=== PATIENT | female | born 1940 | race Caucasian/White ===

== ENCOUNTER 2016-06-21 16:30 | Inpatient (IN) | payer MEDICARE, OTHER ==
[2016-06-21 18:22] VITALS: BP 143/79
[2016-06-21] MEDS ORDERED: ACETAMINOPHEN 500 MG PO PRN (19:45)
[2016-06-21] MEDS ORDERED: Albuterol Nebulizer 2.5mg/3mL HHN PRN (19:45)
[2016-06-21] MEDS ORDERED: Ipratropium Neb 0.5 mg/2.5 mL UD HHN PRN (19:48)
[2016-06-21] MEDS: INSULIN ASPART SLIDING SCALE 100 UNITS/ML UNIT SUBQ SCH (20:46)
[2016-06-21] MEDS: Insulin Detemir 100 units/mL 10mL Vial SUBQ SCH (20:46)
[2016-06-21] MEDS: Ipratropium Neb 0.5 mg/2.5 mL UD HHN SCH ×2 (22:20)
[2016-06-22] MEDS: Acetaminophen 500 MG TAB PO PRN ×2 (02:36→09:56)
[2016-06-22] MEDS: Ipratropium Neb 0.5 mg/2.5 mL UD HHN SCH ×7 (02:40→22:00)
[2016-06-22] MEDS: Hydrocodone/APAP 10 mg/325 mg Tab PO PRN ×3 (06:25→20:30)
[2016-06-22] MEDS: INSULIN ASPART SLIDING SCALE 100 UNITS/ML UNIT SUBQ SCH ×4 (06:37→20:31)
[2016-06-22] MEDS: Atorvastatin Calcium 10 MG TAB PO SCH (09:43)
[2016-06-22] MEDS: Aspirin 81mg Chewable Tab PO SCH (09:43)
[2016-06-22] MEDS: Magnesium Hydroxide (MOM) 30 mL UDC PO PRN (16:25)
[2016-06-22] MEDS: Insulin Detemir 100 units/mL 10mL Vial SUBQ SCH (20:25)
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
[2016-06-23] MEDS: Ipratropium Neb 0.5 mg/2.5 mL UD HHN SCH ×6 (03:30→22:42)
[2016-06-23] MEDS: INSULIN ASPART SLIDING SCALE 100 UNITS/ML UNIT SUBQ SCH ×4 (06:48→20:39)
[2016-06-23] MEDS: Hydrocodone/APAP 10 mg/325 mg Tab PO PRN ×2 (07:50→17:24)
[2016-06-23] MEDS: Atorvastatin Calcium 10 MG TAB PO SCH (08:51)
[2016-06-23] MEDS: Aspirin 81mg Chewable Tab PO SCH (08:53)
[2016-06-23] MEDS: Acetaminophen 500 MG TAB PO PRN (13:52)
[2016-06-23] MEDS: Insulin Detemir 100 units/mL 10mL Vial SUBQ SCH (20:40)
[2016-06-23] MEDS: Nystatin Cream 100,000 u/gm Cream 15 gm TP SCH (21:18)
--- NOTE | 2016-06-24 00:16 | Progress Notes ---
SUBJECTIVE: The patient seen, chart reviewed, discussed with staff. The patient refusing interview this morning. Staff noting she has been irritable towards them, not participating in any self-care planning discussions at this time. I tried to wake her up, but she is not waking up: She is, per staff, "pretending to sleep and refusing to wake up for them as well and doing somewhat oppositional." Unable to participate in any self-care planning discussions at this time. We will contact the patient's daughter today to increase collateral and try to see if she can help out with placement. The patient has apparently been somewhat aggressive at previous snf. ASSESSMENT: The patient refusing interview, not safe for discharge at this time, currently gravely disabled. We will continue to monitor. The patient has been refusing medications. I am not really able to participate in a discussion with her as to why. PLAN: We will try to follow up in the morning. JOB# [id number]
[2016-06-24] MEDS: Hydrocodone/APAP 10 mg/325 mg Tab PO PRN ×4 (00:44→20:27)
[2016-06-24] MEDS: Ipratropium Neb 0.5 mg/2.5 mL UD HHN SCH ×7 (02:25→23:00)
[2016-06-24] MEDS: INSULIN ASPART SLIDING SCALE 100 UNITS/ML UNIT SUBQ SCH ×4 (06:43→21:02)
[2016-06-24] MEDS: Aspirin 81mg Chewable Tab PO SCH (08:34)
[2016-06-24] MEDS: Atorvastatin Calcium 10 MG TAB PO SCH (08:34)
[2016-06-24] MEDS: Nystatin Cream 100,000 u/gm Cream 15 gm TP SCH ×2 (08:40→21:10)
[2016-06-24] MEDS: Magnesium Hydroxide (MOM) 30 mL UDC PO PRN (17:23)
[2016-06-24] MEDS: Insulin Detemir 100 units/mL 10mL Vial SUBQ SCH (21:03)
[2016-06-25] MEDS: Hydrocodone/APAP 10 mg/325 mg Tab PO PRN (02:25)
[2016-06-25] MEDS: Ipratropium Neb 0.5 mg/2.5 mL UD HHN SCH ×2 (03:00→07:36)
--- NOTE | 2016-06-25 06:20 | Progress Notes ---
SUBJECTIVE: The patient was seen, chart reviewed, and discussed with staff. The patient remains depressed, withdrawn, demanding to leave the hospital stating, "just send me on the streets." However, the patient really cannot walk and is on oxygen and is not giving me any evidence of being able to provide for basic food, clothing, and retirement. Currently gravely disabled, refusing some medications, alluding to "gnosticist reasons." The patient is sleeping well, eating with prompting. I did speak with the patient's daughters as they are looking for placements. ASSESSMENT: The patient is gravely disabled, unable to be cared for at a lower level of care, and she cannot care for herself. PLAN: Encouraged medication compliance. Continue to monitor closely. JOB# [id number]
[2016-06-25] MEDS: INSULIN ASPART SLIDING SCALE 100 UNITS/ML UNIT SUBQ SCH ×4 (06:43→21:35)
[2016-06-25] MEDS: Acetaminophen 500 MG TAB PO PRN ×2 (07:52→12:26)
[2016-06-25] MEDS ORDERED: Ipratropium Neb 0.5 mg/2.5 mL UD HHN PRN ×2 (08:36)
[2016-06-25] MEDS: Atorvastatin Calcium 10 MG TAB PO SCH (08:54)
[2016-06-25] MEDS: Aspirin 81mg Chewable Tab PO SCH (08:54)
[2016-06-25] MEDS: Nystatin Cream 100,000 u/gm Cream 15 gm TP SCH ×2 (08:55→21:36)
[2016-06-25] MEDS: Hydrocodone/APAP 5mg/325mg Tab PO PRN ×2 (14:24→21:35)
[2016-06-25] MEDS: Insulin Detemir 100 units/mL 10mL Vial SUBQ SCH (21:36)
[2016-06-26] MEDS: Hydrocodone/APAP 10 mg/325 mg Tab PO PRN ×3 (04:51→16:32)
--- NOTE | 2016-06-26 05:15 | Progress Notes ---
SUBJECTIVE: The patient was seen and evaluated. The patient's chart reviewed. The patient was discussed with the staff members. Overnight staff members reported that the patient is easily irritable, easily agitated and aggressive and curses and yelling in response to suspicions and paranoia. Today on [id number] evaluation, the patient is very irritable, angry, refusing to talk, starts cursing the medical doctor, reporting who the hell are you are and evaluating the patient's emotions, she is easily irritable and just continues to refuse to intervene. MENTAL STATUS EXAMINATION: Still sort of paranoid, delusional, refusing to be interviewed by the medical doctor. Poor insight and poor judgment and poor impulse control. ASSESSMENT AND PLAN: The patient is a 75-year-old female with a history of psychosis who presents very suspicious, irritable, agitated and cursing at the medical staff, difficult to maintain a linear conversation. We will continue monitoring and evaluating. We will continue with the current medications of donepezil, memantine and Risperdal to target the patient's suspicious psychotic behavior. JOB# [id number] MOE
[2016-06-26] MEDS: INSULIN ASPART SLIDING SCALE 100 UNITS/ML UNIT SUBQ SCH ×4 (06:42→20:33)
[2016-06-26] MEDS: Atorvastatin Calcium 10 MG TAB PO SCH (08:42)
[2016-06-26] MEDS: Aspirin 81mg Chewable Tab PO SCH (08:43)
[2016-06-26] MEDS: Nystatin Cream 100,000 u/gm Cream 15 gm TP SCH ×2 (08:45→20:53)
[2016-06-26] MEDS: Insulin Detemir 100 units/mL 10mL Vial SUBQ SCH (20:32)
--- NOTE | 2016-06-27 00:15 | Progress Notes ---
Covering for Dr. Oden. SUBJECTIVE: The patient was seen and evaluated. The patient's chart reviewed. Overnight staff reported the patient continues to be very irritable and cursing. Today on [id number] evaluation, the patient curses the medical doctor, very suspicious, paranoid, reports "why are you following me, why are you tracking me." MENTAL STATUS EXAMINATION: Suspicious, paranoid, very irritable, easily agitated. ASSESSMENT AND PLAN: The patient is a 75-year-old female who continues to be very paranoid, delusional, very irritable and agitated related to the patient's psychotic thought process. In the mean time, we will continue monitoring and evaluating. We will continue with the Cymbalta 30 mg to target her ongoing depression and a low dose of risperidone 0.5 to target the patient's underlying paranoia. JOB# [id number]
[2016-06-27] MEDS: Hydrocodone/APAP 5mg/325mg Tab PO PRN ×4 (05:07→22:05)
[2016-06-27] MEDS: INSULIN ASPART SLIDING SCALE 100 UNITS/ML UNIT SUBQ SCH ×4 (06:32→21:33)
[2016-06-27] MEDS: Atorvastatin Calcium 10 MG TAB PO SCH (10:16)
[2016-06-27] MEDS: Aspirin 81mg Chewable Tab PO SCH (10:16)
[2016-06-27] MEDS: Nystatin Cream 100,000 u/gm Cream 15 gm TP SCH ×2 (10:19→21:25)
--- NOTE | 2016-06-27 19:26 | Progress Notes ---
SUBJECTIVE: The patient seen, chart reviewed, discussed with staff. The patient remains suspicion, irritable noted to be somewhat paranoid, by Dr. Madrid over the weekend. Dr. Madrid noted that the patient thought that he was following her and tracking her. The patient is continuing to intermittently refuse medications. The patient was started on Risperdal over the weekend. No plans for self-care at this time, noting she wants to go to "[place]" though we have no confirmation of placement. Sleeping, but arousable, still needing a lot of redirection and prompting. ASSESSMENT: The patient remains suspicious, _symptomatic___, depressed, irritable, no plans for self-care. We will continue to monitor and encourage med compliance. JOB# [id number] MOE
[2016-06-27] MEDS: Insulin Detemir 100 units/mL 10mL Vial SUBQ SCH (21:28)
[2016-06-27] MEDS: Magnesium Hydroxide (MOM) 30 mL UDC PO PRN (22:06)
[2016-06-28] MEDS: Hydrocodone/APAP 5mg/325mg Tab PO PRN ×2 (05:47→10:26)
[2016-06-28] MEDS: INSULIN ASPART SLIDING SCALE 100 UNITS/ML UNIT SUBQ SCH ×4 (06:52→20:37)
[2016-06-28] MEDS: Aspirin 81mg Chewable Tab PO SCH (09:47)
[2016-06-28] MEDS: Atorvastatin Calcium 10 MG TAB PO SCH (09:47)
[2016-06-28] MEDS: Nystatin Cream 100,000 u/gm Cream 15 gm TP SCH ×2 (09:48→20:41)
[2016-06-28] MEDS: Hydrocodone/APAP 10 mg/325 mg Tab PO PRN ×2 (15:06→20:36)
[2016-06-28] MEDS: Insulin Detemir 100 units/mL 10mL Vial SUBQ SCH (20:38)
--- NOTE | 2016-06-28 23:44 | Progress Notes ---
SUBJECTIVE: The patient was seen, chart reviewed, and discussed with staff. The patient remains irritable, impulsive, upset, refusing treatment, refusing Cymbalta, and refusing Risperdal. No overt evidence of psychosis at this time. She is linear, but upset. No plans for self-care at this time, states "just release me to the street," but at the same time, she is curious about pending dispo planning and what the social and human services assistant has found in regards to placement. The patient is sleeping fairly well and eating with prompting. ASSESSMENT: The patient is gravely disabled, still symptomatic, irritable, impulsive, and refusing treatment. PLAN: Continue to monitor. We are working hard on placement. JOB# [id number]
[2016-06-29] MEDS: Hydrocodone/APAP 10 mg/325 mg Tab PO PRN (06:09)
[2016-06-29] MEDS: INSULIN ASPART SLIDING SCALE 100 UNITS/ML UNIT SUBQ SCH ×3 (06:33→17:23)
[2016-06-29] MEDS: Atorvastatin Calcium 10 MG TAB PO SCH (08:18)
[2016-06-29] MEDS: Aspirin 81mg Chewable Tab PO SCH (08:19)
[2016-06-29] MEDS: Nystatin Cream 100,000 u/gm Cream 15 gm TP SCH (08:20)
[2016-06-29] MEDS: Hydrocodone/APAP 5mg/325mg Tab PO PRN ×2 (13:32→17:49)
[2016-06-29] MEDS: Acetaminophen 500 MG TAB PO PRN (14:14)
--- NOTE | 2016-06-29 19:30 | Discharge Summary ---
JUSTIFICATION FOR HOSPITALIZATION: 5150 hold, grave disability. CHIEF COMPLAINT: Grave disability HISTORY OF PRESENT ILLNESS: A 75-year-old female, refusing medications at [facility], well oriented, but not knowing why she is in the hospital, unable to care for her basic needs, demanding to leave the hospital, history of aggression. SOCIAL HISTORY: Living at [facility] facility, some support from Daughters. PAST PSYCHIATRIC HISTORY: Depression. MENTAL STATUS EXAMINATION: Please see full psych eval for details. PROVISIONAL DIAGNOSES: Depression, unspecified; anxiety, unspecified. MEDICAL: Nothing acute. LABORATORY DATA: Reviewed. HOSPITAL COURSE: After initial assessment, the patient was initiated on Cymbalta. Over the course of the hospitalization, her mood did improve. She remained somewhat irritable, Dr. Madrid saw her was concerned about psychotic symptoms, initiated Risperdal; however, she refused alluding to her _religious__ _ reasons. However, the patient did not appear to be psychotic. She was linear and engaged, denying any auditory or visual hallucinations. No paranoia, so I did discharge the Risperdal, she did not take any dosages of it. I also discharged Cymbalta as she took no doses of it. By 06/29/2016, placement was confirmed. The placement did accept the patient, the patient was asymptomatic and she was discharged. CONDITION UPON DISCHARGE: Improved, good attention ADLs, good eye contact. Speech: Within normal limits. Behavior, calm; mood, "fine." Affect constricted. Thought process linear. Thought content, no SI, no HI. No evidence of psychosis. Concentration was sustained. Insight and judgment more reasonable x 2. The patient hopeful, motivated and optimistic, denying any thoughts that she wants to hurt anybody, no agitation. Staff noting she is sleeping well, eating well and redirectable. DISCHARGE DIAGNOSES: Depression, unspecified and anxiety, unspecified; medical, nothing acute. PROGNOSIS: The patient remains calm and follows her treatment plans. Prognosis will improve, otherwise guarded. JOB# [id number] MOE
[2016-06-29] MEDS ORDERED: Insulin Detemir 100 units/mL 10mL Vial SUBQ SCH (21:00)
== END 2016-06-29 18:30 | DRG 881 ==
LOC: GERO 16:30
PROVIDERS: ADMIT Psychiatry & Neurology Psychiatry; ATTEND Psychiatry & Neurology Psychiatry
DX: F32.9 Major depressive disorder, single episode, unspecified (principal); E66.01 Morbid (severe) obesity due to excess calories; E11.9 Type 2 diabetes mellitus without complications; J44.9 Chronic obstructive pulmonary disease, unspecified; F41.9 Anxiety disorder, unspecified; E78.5 Hyperlipidemia, unspecified; J45.909 Unspecified asthma, uncomplicated; G47.33 Obstructive sleep apnea (adult) (pediatric); I10 Essential (primary) hypertension; F29 Unspecified psychosis not due to a substance or known physiological condition; G89.4 Chronic pain syndrome; H40.9 Unspecified glaucoma; Z79.4 Long term (current) use of insulin; Z79.82 Long term (current) use of aspirin; Z91.14 Patient's other noncompliance with medication regimen; Z88.8 Allergy status to other drugs, medicaments and biological substances; Z88.0 Allergy status to penicillin; Z91.040 Latex allergy status
CPT/HCPCS: 36415-UA; 82948-90; 84484-TC; 90779; 93005; 94664; 94760; J1815; J7613; Z7610

== ENCOUNTER 2018-12-11 20:42 | Inpatient (IN) | payer MEDICARE, OTHER ==
[2018-12-11] MEDS ORDERED: Hydrocodone/APAP 5mg/325mg Tab PO PRN (21:39)
[2018-12-11 21:41] VITALS: BP 108/76
[2018-12-11] MEDS ORDERED: Dextrose 50% 50 mL Abboject IVP PRN ×2 (21:44→21:59)
[2018-12-11] MEDS ORDERED: GLUCAGON HCl 1 MG KIT IM PRN ×2 (21:44→21:59)
[2018-12-11] MEDS ORDERED: INSULIN LISPRO SLIDING SCALE 100 UNITS/ML UNIT SUBQ SCH (21:54)
--- NOTE | 2018-12-11 22:10 | History & Physical ---
ADMIT DATE: 12/11/2018 HISTORY OF PRESENT ILLNESS: The patient is an 78-year-old female with long history of diabetes mellitus, hypertension, admitted to [facility] under Dr. Velazquez's service for evaluation and treatment. Apparently, the patient has been very agitated, psychotic. There is no fever, no chills. Apparently, the patient was seen at [facility] ER and received 1 dose of 1 g of Rocephin. Her urine is significant for a yeast infection. The patient is a poor historian. PAST MEDICAL HISTORY: Significant for hypertension, diabetes mellitus, psychosis. PAST SURGICAL HISTORY: No recent surgery. ALLERGIES: FUROSEMIDE, LISINOPRIL, PENICILLIN AND SULFA. SOCIAL HISTORY: No smoking, no alcohol, no drug. FAMILY HISTORY: Noncontributory. REVIEW OF SYSTEMS: IMMUNO SYSTEM: No history of chronic immune disorder. CARDIOVASCULAR SYSTEM: She has history of hypertension. ENDOCRINE SYSTEM: She has history of diabetes mellitus. GASTROINTESTINAL SYSTEM: No upper or lower GI bleeding. NEUROLOGICAL SYSTEM: No seizure disorder. SKELETOMUSCULOSKELETAL SYSTEM: No muscular dystrophy. HEMATOLOGIC SYSTEM: No bleeding tendencies. RESPIRATORY SYSTEM: She has history of asthma. GENITOURINARY: She has yeast infection in the urine. PHYSICAL EXAMINATION: GENERAL: She is awake, alert, mildly confused. VITAL SIGNS: Temperature is 98, heart rate 88, blood pressure 132/70. HEENT: Normocephalic. Pupils reactive to light and accommodation. Sclerae clear. NECK: Supple. Negative for lymphadenopathy, JVD or bruit. CHEST: Entry of air bilaterally normal. No rhonchi or wheezing. HEART: S1, S2 normal. No gallop rhythm. ABDOMEN: Soft, bowel sounds positive. EXTREMITIES: No edema. NEUROLOGIC: She is awake, alert, mildly confused. No focal motor or sensory deficits. Cranial nerves 2-12 are intact. ASSESSMENT: 1. Urinary tract infection. 2. Hypertension. 3. Diabetes mellitus. 4. Hyperlipidemia. 5. Psychosis. PLAN: The patient is in the hospital under Dr. Velazquez's service. Problems addressed during hospitalization are psychosis and the urinary tract infection. Medical problems addressed at discharge are hypertension, diabetes mellitus. The patient is medically stable for activity. We will start the patient on Diflucan 200 mg p.o. daily for 5 days. The patient is stable for activity. Thank you, Dr. Velazquez for asking me to see your patient. The patient is a full code. JOB# [id number]
[2018-12-11] MEDS: Insulin Glargine 100 units/ml 10ml Vial SUBQ SCH (22:19)
[2018-12-11] MEDS: INSULIN LISPRO SLIDING SCALE 100 UNITS/ML UNIT SUBQ SCH (22:21)
[2018-12-11] MEDS: Ipratropium Neb 0.5 mg/2.5 mL UD HHN SCH (23:07)
[2018-12-12] MEDS: Ipratropium Neb 0.5 mg/2.5 mL UD HHN SCH ×6 (03:00→22:30)
[2018-12-12] MEDS: INSULIN LISPRO SLIDING SCALE 100 UNITS/ML UNIT SUBQ SCH ×4 (06:58→21:38)
[2018-12-12] MEDS ORDERED: INSULIN LISPRO SLIDING SCALE 100 UNITS/ML UNIT SUBQ SCH (07:30)
[2018-12-12 08:15] LABS: CHOLESTEROL 174 mg/dL (<200); HDL -HIGH DENSITY LIPOPROTEIN 30 mg/dL (23-92); TRIGLYCERIDES 336 mg/dL (<150)
[2018-12-12] MEDS ORDERED: Fleet Enema 135 mL RC PRN (08:19)
[2018-12-12] MEDS ORDERED: FLUTICASONE FUROATE NS SCH (09:00)
[2018-12-12] MEDS ORDERED: Atorvastatin Calcium 10 MG TAB PO SCH (09:00)
[2018-12-12] MEDS: Vitamin B Complex w/Vitamin C Tab PO SCH (09:32)
[2018-12-12] MEDS: Levothyroxine 0.075 Mg Tab PO SCH (09:53)
[2018-12-12] MEDS: APAP/Oxycodone 5/325mg Tab PO SCH ×3 (10:00→21:55)
[2018-12-12] MEDS: Nystatin Cream 100,000 u/gm Cream 15 gm TP SCH ×3 (13:00→21:55)
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
--- NOTE | 2018-12-12 21:13 | Internal Medicine Prog Note ---
Internal Medicine Subjective - Subjective Service Date: 12/12/18 Patient seen and examined:: with staff Patient is:: awake, verbal, in bed, talking, confused Per staff patient has:: no adverse event Internal Medicine Objective - Results Recent Labs: Laboratory Last Values POC Glucose 331 MG/DL (70 - 105) H 12/12/18 16:43 Triglycerides 336 mg/dL (<150) H 12/12/18 07:10 Cholesterol 174 mg/dL (<200) 12/12/18 07:10 LDL Cholesterol Direct 98 mg/dL (75-193) 12/12/18 07:10 HDL Cholesterol 30 mg/dL (23-92) 12/12/18 07:10 - Physical Exam Vitals and I&O: Vital Signs Temp 98.9 F 12/12/18 06:24 Pulse 74 12/12/18 19:05 Resp 20 12/12/18 19:05 BP 182/122 12/12/18 17:13 Pulse Ox 97 12/12/18 19:05 Intake & Output 12/12/18 12/12/18 12/13/18 06:59 18:59 06:59 Intake Total 220 420 Balance 220 420 Intake: Oral 220 420 Other: # Voids 2 4 # Bowel Movements 0 0 Weight Source Estimated Active Medications: Current Medications Acetaminophen (Tylenol Extra Strength) 500 mg PO Q4HR PRN PRN Reason: Pain or Fever >101 Stop: 02/09/19 21:38 Albuterol Sulfate (Albuterol 2.5mg/3ml Neb Ud) 2.5 mg HHN Q4H PRN PRN Reason: Shortness of Breath or Wheeze Stop: 02/09/19 21:38 Aripiprazole (Abilify) 5 mg PO DAILY [facility]; Protocol Stop: 02/10/19 08:59 Last Admin: 12/12/18 09:33 Dose: 5 mg Aspirin (Ecotrin) 81 mg PO DAILY [facility] Stop: 02/10/19 08:59 Last Admin: 12/12/18 09:32 Dose: 81 mg Atorvastatin Calcium (Lipitor) 20 mg PO HS [facility] Stop: 02/10/19 20:59 Bisacodyl (Dulcolax 10 Mg Supp) 10 mg RC Q24H PRN PRN Reason: Constipation Stop: 02/10/19 10:59 Brimonidine Tartrate (Alphagan 0.1% Ophth Soln) 1 drop EACH EYE TID [facility] Stop: 02/10/19 08:59 Last Admin: 12/12/18 14:29 Dose: Not Given Carvedilol (Coreg) 6.25 mg PO BID [facility] Stop: 02/10/19 08:59 Last Admin: 12/12/18 17:13 Dose: 6.25 mg Dextrose (D50w) 50 ml IVP PRN PRN PRN Reason: Blood Glucose less than 70 Stop: 02/09/19 21:43 Dextrose (Glutose 40%) 18.75 gm PO PRN PRN PRN Reason: Blood Glucose less than 70 Stop: 02/09/19 21:43 Docusate Sodium (Colace) 100 mg PO BID [facility] Stop: 02/10/19 08:59 Last Admin: 12/12/18 17:12 Dose: 100 mg Duloxetine HCl (Cymbalta) 60 mg PO DAILY [facility]; Protocol Stop: 02/10/19 08:59 Last Admin: 12/12/18 09:39 Dose: Not Given Fluconazole (Diflucan) 200 mg PO DAILY [facility] Stop: 12/16/18 09:01 Last Admin: 12/12/18 09:34 Dose: 200 mg Furosemide (Lasix) 20 mg PO BID [facility] Stop: 02/10/19 08:59 Last Admin: 12/12/18 17:13 Dose: 20 mg Glucagon (Glucagen) 1 mg IM PRN PRN PRN Reason: Blood Glucose less than 70 Stop: 02/09/19 21:43 Hydralazine HCl (Apresoline) 10 mg PO BID [facility] Stop: 02/10/19 08:59 Last Admin: 12/12/18 17:12 Dose: 10 mg Ibuprofen (Motrin) 600 mg PO Q8H PRN PRN Reason: for breakthrough pain Stop: 02/10/19 08:18 Insulin Glargine (Lantus Insulin) 22 units SUBQ HS [facility] Stop: 02/09/19 21:59 Last Admin: 12/11/18 22:19 Dose: 22 units Insulin Human Lispro (Humalog Insulin Sliding Scale) 0 units SUBQ ACHS [facility]; Protocol Stop: 02/09/19 21:59 Last Admin: 12/12/18 16:58 Dose: 8 units Ipratropium [place] (Atrovent Neb 0.5mg/2.5ml) 0.5 mg HHN Q4HRT [facility] Stop: 02/09/19 22:59 Last Admin: 12/12/18 19:01 Dose: 0.5 mg Isosorbide Dinitrate (Isordil) 10 mg PO Q8H [facility] Stop: 02/10/19 08:29 Last Admin: 12/12/18 17:13 Dose: Not Given Latanoprost (Xalatan 0.005% Ophth Soln) 1 drop EACH EYE HS [facility] Stop: 02/10/19 20:59 Levothyroxine Sodium (Synthroid) 0.075 mg PO DAILY [facility] Stop: 02/10/19 08:59 Last Admin: 12/12/18 09:53 Dose: 0.075 mg Loratadine (Claritin) 10 mg PO DAILY [facility] Stop: 02/10/19 08:59 Last Admin: 12/12/18 09:32 Dose: Not Given Lorazepam (Ativan) 0.5 mg PO Q4HR PRN; Protocol PRN Reason: Anxiety Stop: 01/11/19 02:34 Losartan Potassium (Cozaar) 50 mg PO DAILY [facility] Stop: 02/10/19 08:59 Last Admin: 12/12/18 09:33 Dose: 50 mg Magnesium Hydroxide (Milk Of Magnesia) 30 ml PO DAILY PRN PRN Reason: Constipation Stop: 02/09/19 21:38 Miscellaneous (Fluticasone Furoate [Flonase Sensimist]) 2 sprays NS DAILY [facility] Stop: 02/10/19 08:59 Last Admin: 12/12/18 12:14 Dose: Not Given Nitroglycerin (Nitrostat) 0.4 mg SL Q5MIN PRN PRN Reason: CHEST PAIN X3 Nystatin (Mycostatin Cream) 1 appl TP Q12HR [facility] Stop: 02/10/19 11:59 Last Admin: 12/12/18 15:14 Dose: Not Given Ondansetron HCl (Zofran Odt) 4 mg PO Q6H PRN PRN Reason: nausea and vomiting Oxycodone/Acetaminophen (Percocet 5/325mg Oral Tab) 1 tab PO Q6H [facility] Stop: 02/10/19 08:59 Last Admin: 12/12/18 16:00 Dose: Not Given Rivaroxaban (Xarelto) 15 mg PO QPM [facility] Stop: 02/10/19 16:59 Last Admin: 12/12/18 17:14 Dose: 15 mg Senna (Senna) 17.2 mg PO HS [facility] Stop: 02/10/19 20:59 Sodium Phosphate (Fleet Enema) 135 ml RC DAILY PRN PRN Reason: Constipation Stop: 02/10/19 08:18 Vitamin B Complex/Vit C/Folic Acid (Vitamin B Complex W/Vitamin C) 1 tab PO DAILY [facility] Stop: 02/10/19 08:59 Last Admin: 12/12/18 09:32 Dose: 1 tab Zolpidem Tartrate (Ambien) 5 mg PO HS PRN PRN Reason: Insomnia Stop: 02/09/19 21:38 General: alert, demented, obese HEENT: NC/AT, PERRLA, EOMI, anicteric sclerae, throat clear Neck: Supple, No JVD, No thyromegaly, +2 carotid pulse wo bruit, No LAD Lungs: CTAB Cardiovascular: RRR, Normal S1, Normal S2, without murmur Abdomen: soft, non-tender, non-distended Extremities: clear Neurological: no change Internal Medicine Assmt/Plan - Assessment Assessment: 1.UTI. 2.HTN. 3.DM. 4.PSYCHOSIS - Plan Plan: CONTINUE ON CURRENT MEDICATION AND DIET.
[2018-12-12] MEDS: Atorvastatin Calcium 10 MG TAB PO SCH (21:34)
[2018-12-12] MEDS: Insulin Glargine 100 units/ml 10ml Vial SUBQ SCH (21:39)
[2018-12-13] MEDS: Ipratropium Neb 0.5 mg/2.5 mL UD HHN SCH ×6 (02:16→23:32)
[2018-12-13] MEDS: APAP/Oxycodone 5/325mg Tab PO SCH ×4 (02:56→21:07)
[2018-12-13 06:09] LABS: A1C 10.9 % (4.8-5.6)
[2018-12-13] MEDS: INSULIN LISPRO SLIDING SCALE 100 UNITS/ML UNIT SUBQ SCH ×4 (06:37→21:07)
[2018-12-13] MEDS: Vitamin B Complex w/Vitamin C Tab PO SCH (09:22)
[2018-12-13] MEDS: Nystatin Cream 100,000 u/gm Cream 15 gm TP SCH ×2 (09:25→21:09)
[2018-12-13] MEDS: Levothyroxine 0.075 Mg Tab PO SCH (11:30)
[2018-12-13] MEDS: NYSTATIN 100000 UNITS/GM POWD TP SCH (17:48)
--- NOTE | 2018-12-13 19:48 | Internal Medicine Prog Note ---
Internal Medicine Subjective - Subjective Service Date: 12/13/18 Patient seen and examined:: without staff (SHE IS DOING WELL) Patient is:: awake, verbal, in bed, talking, confused Per staff patient has:: no adverse event Internal Medicine Objective - Results Recent Labs: Laboratory Last Values POC Glucose 311 MG/DL (70 - 105) H 12/13/18 17:17 Triglycerides 336 mg/dL (<150) H 12/12/18 07:10 Cholesterol 174 mg/dL (<200) 12/12/18 07:10 LDL Cholesterol Direct 98 mg/dL (75-193) 12/12/18 07:10 HDL Cholesterol 30 mg/dL (23-92) 12/12/18 07:10 - Physical Exam Vitals and I&O: Vital Signs Temp 98.3 F 12/13/18 14:00 Pulse 79 12/13/18 19:37 Resp 20 12/13/18 19:37 BP 138/78 12/13/18 17:51 Pulse Ox 94 12/13/18 19:37 Intake & Output 12/13/18 12/13/18 12/14/18 06:59 18:59 06:59 Intake Total 120 1600 Balance 120 1600 Intake: Oral 120 1600 Other: # Voids 3 5 # Bowel Movements 0 Active Medications: Current Medications Acetaminophen (Tylenol Extra Strength) 500 mg PO Q4HR PRN PRN Reason: Pain or Fever >101 Stop: 02/09/19 21:38 Albuterol Sulfate (Albuterol 2.5mg/3ml Neb Ud) 2.5 mg HHN Q4H PRN PRN Reason: Shortness of Breath or Wheeze Stop: 02/09/19 21:38 Aripiprazole (Abilify) 10 mg PO DAILY [facility]; Protocol Stop: 02/11/19 08:59 Last Admin: 12/13/18 09:23 Dose: Not Given Aspirin (Ecotrin) 81 mg PO DAILY [facility] Stop: 02/10/19 08:59 Last Admin: 12/13/18 09:20 Dose: 81 mg Atorvastatin Calcium (Lipitor) 20 mg PO HS [facility] Stop: 02/10/19 20:59 Last Admin: 12/12/18 21:34 Dose: 20 mg Bisacodyl (Dulcolax 10 Mg Supp) 10 mg RC Q24H PRN PRN Reason: Constipation Stop: 02/10/19 10:59 Brimonidine Tartrate (Alphagan 0.1% Oph Soln) 1 drop EACH EYE TID [facility] Stop: 02/10/19 08:59 Last Admin: 12/13/18 14:20 Dose: Not Given Carvedilol (Coreg) 6.25 mg PO BID [facility] Stop: 02/10/19 08:59 Last Admin: 12/13/18 17:49 Dose: 6.25 mg Dextrose (D50w) 50 ml IVP PRN PRN PRN Reason: Blood Glucose less than 70 Stop: 02/09/19 21:43 Dextrose (Glutose 40%) 18.75 gm PO PRN PRN PRN Reason: Blood Glucose less than 70 Stop: 02/09/19 21:43 Docusate Sodium (Colace) 100 mg PO BID [facility] Stop: 02/10/19 08:59 Last Admin: 12/13/18 17:49 Dose: 100 mg Duloxetine HCl (Cymbalta) 60 mg PO DAILY [facility]; Protocol Stop: 02/10/19 08:59 Last Admin: 12/13/18 11:04 Dose: Not Given Fluconazole (Diflucan) 200 mg PO DAILY [facility] Stop: 12/16/18 09:01 Last Admin: 12/13/18 09:20 Dose: 200 mg Furosemide (Lasix) 20 mg PO BID [facility] Stop: 02/10/19 08:59 Last Admin: 12/13/18 17:50 Dose: 20 mg Glucagon (Glucagen) 1 mg IM PRN PRN PRN Reason: Blood Glucose less than 70 Stop: 02/09/19 21:43 Hydralazine HCl (Apresoline) 10 mg PO BID [facility] Stop: 02/10/19 08:59 Last Admin: 12/13/18 17:47 Dose: Not Given Ibuprofen (Motrin) 600 mg PO Q8H PRN PRN Reason: for breakthrough pain Stop: 02/10/19 08:18 Last Admin: 12/13/18 00:32 Dose: 600 mg Insulin Glargine (Lantus Insulin) 22 units SUBQ HS [facility] Stop: 02/09/19 21:59 Last Admin: 12/12/18 21:39 Dose: 22 units Insulin Human Lispro (Humalog Insulin Sliding Scale) 0 units SUBQ [facility]; Protocol Stop: 02/09/19 21:59 Last Admin: 12/13/18 17:00 Dose: 8 units Ipratropium [place] (Atrovent Neb 0.5mg/2.5ml) 0.5 mg HHN Q4HRT [facility] Stop: 02/09/19 22:59 Last Admin: 12/13/18 19:36 Dose: Not Given Isosorbide Dinitrate (Isordil) 10 mg PO Q8H [facility] Stop: 02/10/19 08:29 Last Admin: 12/13/18 17:51 Dose: Not Given Latanoprost (Xalatan 0.005% Ophth Soln) 1 drop EACH EYE HS [facility] Stop: 02/10/19 20:59 Last Admin: 12/12/18 21:34 Dose: Not Given Levothyroxine Sodium (Synthroid) 0.075 mg PO DAILY [facility] Stop: 02/10/19 08:59 Last Admin: 12/13/18 11:30 Dose: Not Given Loratadine (Claritin) 10 mg PO DAILY [facility] Stop: 02/10/19 08:59 Last Admin: 12/13/18 17:48 Dose: Not Given Lorazepam (Ativan) 0.5 mg PO Q4HR PRN; Protocol PRN Reason: Anxiety Stop: 01/11/19 02:34 Losartan Potassium (Cozaar) 50 mg PO DAILY [facility] Stop: 02/10/19 08:59 Last Admin: 12/13/18 17:48 Dose: Not Given Magnesium Hydroxide (Milk Of Magnesia) 30 ml PO DAILY PRN PRN Reason: Constipation Stop: 02/09/19 21:38 Miscellaneous (Fluticasone Furoate [Flonase Sensimist]) 2 sprays NS DAILY [facility] Stop: 02/10/19 08:59 Last Admin: 12/12/18 12:14 Dose: Not Given Nitroglycerin (Nitrostat) 0.4 mg SL Q5MIN PRN PRN Reason: CHEST PAIN X3 Nystatin (Mycostatin Cream) 1 appl TP Q12HR [facility] Stop: 02/10/19 11:59 Last Admin: 12/13/18 09:25 Dose: Not Given Nystatin (Nystop) 100 units TP DAILY [facility] Stop: 02/11/19 11:05 Last Admin: 12/13/18 17:48 Dose: 100 units Ondansetron HCl (Zofran Odt) 4 mg PO Q6H PRN PRN Reason: nausea and vomiting Oxycodone/Acetaminophen (Percocet 5/325mg Oral Tab) 1 tab PO Q6H [facility] Stop: 02/10/19 08:59 Last Admin: 12/13/18 17:45 Dose: 1 tab Rivaroxaban (Xarelto) 15 mg PO QPM [facility] Stop: 02/10/19 16:59 Last Admin: 12/13/18 17:50 Dose: 10 mg Senna (Senna) 17.2 mg PO HS [facility] Stop: 02/10/19 20:59 Last Admin: 12/12/18 21:34 Dose: Not Given Sodium Phosphate (Fleet Enema) 135 ml RC DAILY PRN PRN Reason: Constipation Stop: 02/10/19 08:18 Vitamin B Complex/Vit C/Folic Acid (Vitamin B Complex W/Vitamin C) 1 tab PO DAILY [facility] Stop: 02/10/19 08:59 Last Admin: 12/13/18 09:22 Dose: 1 tab Zolpidem Tartrate (Ambien) 5 mg PO HS PRN PRN Reason: Insomnia Stop: 02/09/19 21:38 General: alert, demented, obese HEENT: NC/AT, PERRLA, EOMI, anicteric sclerae, throat clear Neck: Supple, No JVD, No thyromegaly, +2 carotid pulse wo bruit, No LAD Lungs: CTAB Cardiovascular: RRR, Normal S1, Normal S2, without murmur Abdomen: soft, non-tender, non-distended Extremities: clear Neurological: no change Internal Medicine Assmt/Plan - Assessment Assessment: 1.UTI. 2.HTN. 3.DM. 4.PSYCHOSIS - Plan Plan: CONTINUE ON CURRENT MEDICATION AND DIET.
[2018-12-13] MEDS: Atorvastatin Calcium 10 MG TAB PO SCH (21:07)
[2018-12-13] MEDS: Insulin Glargine 100 units/ml 10ml Vial SUBQ SCH (21:08)
[2018-12-13] MEDS: Magnesium Hydroxide (MOM) 30 mL UDC PO PRN (21:28)
[2018-12-14] MEDS: APAP/Oxycodone 5/325mg Tab PO SCH ×4 (03:03→22:00)
[2018-12-14] MEDS: INSULIN LISPRO SLIDING SCALE 100 UNITS/ML UNIT SUBQ SCH ×4 (06:32→21:12)
[2018-12-14] MEDS: Ipratropium Neb 0.5 mg/2.5 mL UD HHN SCH ×6 (06:36→22:41)
--- NOTE | 2018-12-14 08:14 | Progress Notes ---
DATE: SUBJECTIVE: Chart was reviewed and the patient interviewed. Also, discussed the patient's condition with the staff and reviewed records and labs. The patient is still suspicious and is still paranoid. The patient also is still restless and still accusing staff with things that does not happen. The patient also still easily agitated. Otherwise, the patient is compliant with taking her medications except Cymbalta for no apparent reason and the patient does not give any explanation for why she is refusing to take Cymbalta. ASSESSMENT: The patient is still depressed and paranoid. TREATMENT PLAN: We will continue to monitor her behavior and her condition closely. Also, continue adjusting psychotropic medications and follow up closely. The patient did take Abilify yesterday in a dose of 5 mg. We will increase Abilify to 10 mg every day and we will continue to follow up. [facility]# [id number]
[2018-12-14] MEDS ORDERED: NYSTATIN 100000 UNITS/GM POWD TP SCH (09:00)
[2018-12-14] MEDS: Haldol Oral Sol.(concentrate) 10 mg/5 mL Udc PO SCH ×2 (09:20→17:38)
[2018-12-14] MEDS: Fluticasone Propionate Nasal 1 SPR SPR NS SCH (09:36)
[2018-12-14] MEDS: Vitamin B Complex w/Vitamin C Tab PO SCH (09:46)
[2018-12-14] MEDS: Nystatin Cream 100,000 u/gm Cream 15 gm TP SCH ×2 (09:46→22:00)
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
--- NOTE | 2018-12-14 14:36 | Internal Medicine Prog Note ---
Internal Medicine Subjective - Subjective Service Date: 12/14/18 Patient seen and examined:: with staff (SHE IS NOT COPORATIVE) Patient is:: awake, verbal, in bed, talking, confused Per staff patient has:: no adverse event Internal Medicine Objective - Results Recent Labs: Laboratory Last Values POC Glucose 272 MG/DL (70 - 105) H 12/14/18 12:05 Triglycerides 336 mg/dL (<150) H 12/12/18 07:10 Cholesterol 174 mg/dL (<200) 12/12/18 07:10 LDL Cholesterol Direct 98 mg/dL (75-193) 12/12/18 07:10 HDL Cholesterol 30 mg/dL (23-92) 12/12/18 07:10 - Physical Exam Vitals and I&O: Vital Signs Temp 98.7 F 12/14/18 06:22 Pulse 72 12/14/18 10:55 Resp 18 12/14/18 10:55 BP 136/60 12/14/18 09:59 Pulse Ox 99 12/14/18 10:55 Intake & Output 12/13/18 12/14/18 12/14/18 18:59 06:59 18:59 Intake Total 1600 120 Balance 1600 120 Intake: Oral 1600 120 Other: # Voids 5 3 # Bowel Movements 0 Active Medications: Current Medications Acetaminophen (Tylenol Extra Strength) 500 mg PO Q4HR PRN PRN Reason: Pain or Fever >101 Stop: 02/09/19 21:38 Albuterol Sulfate (Albuterol 2.5mg/3ml Neb Ud) 2.5 mg HHN Q4H PRN PRN Reason: Shortness of Breath or Wheeze Stop: 02/09/19 21:38 Aripiprazole (Abilify) 20 mg PO DAILY [facility]; Protocol Stop: 02/12/19 08:59 Last Admin: 12/14/18 09:47 Dose: Not Given Aspirin (Ecotrin) 81 mg PO DAILY [facility] Stop: 02/10/19 08:59 Last Admin: 12/14/18 09:35 Dose: 81 mg Atorvastatin Calcium (Lipitor) 20 mg PO HS [facility] Stop: 02/10/19 20:59 Last Admin: 12/13/18 21:07 Dose: 20 mg Bisacodyl (Dulcolax 10 Mg Supp) 10 mg RC Q24H PRN PRN Reason: Constipation Stop: 02/10/19 10:59 Last Admin: 12/14/18 05:50 Dose: 10 mg Brimonidine Tartrate (Alphagan 0.1% Ophth Soln) 1 drop EACH EYE TID [facility] Stop: 02/10/19 08:59 Last Admin: 12/14/18 09:41 Dose: 1 drop Carvedilol (Coreg) 6.25 mg PO BID [facility] Stop: 02/10/19 08:59 Last Admin: 12/14/18 09:47 Dose: Not Given Dextrose (D50w) 50 ml IVP PRN PRN PRN Reason: Blood Glucose less than 70 Stop: 02/09/19 21:43 Dextrose (Glutose 40%) 18.75 gm PO PRN PRN PRN Reason: Blood Glucose less than 70 Stop: 02/09/19 21:43 Docusate Sodium (Colace) 100 mg PO BID [facility] Stop: 02/10/19 08:59 Last Admin: 12/14/18 09:58 Dose: 100 mg Duloxetine HCl (Cymbalta) 60 mg PO DAILY [facility]; Protocol Stop: 02/10/19 08:59 Last Admin: 12/14/18 09:47 Dose: Not Given Fluconazole (Diflucan) 200 mg PO DAILY [facility] Stop: 12/16/18 09:01 Last Admin: 12/14/18 09:39 Dose: 200 mg Fluticasone Propionate (Flonase) 1 spr NS DAILY [facility] Stop: 02/10/19 08:59 Last Admin: 12/14/18 09:36 Dose: 1 spr Furosemide (Lasix) 20 mg PO BID [facility] Stop: 02/10/19 08:59 Last Admin: 12/14/18 09:39 Dose: 20 mg Glucagon (Glucagen) 1 mg IM PRN PRN PRN Reason: Blood Glucose less than 70 Stop: 02/09/19 21:43 Haloperidol Lactate (Haldol Concentrate 10mg/5ml Susp) 5 mg PO BID [facility]; Protocol Stop: 02/12/19 08:59 Hydralazine HCl (Apresoline) 10 mg PO BID [facility] Stop: 02/10/19 08:59 Last Admin: 12/14/18 09:59 Dose: 10 mg Ibuprofen (Motrin) 600 mg PO Q8H PRN PRN Reason: for breakthrough pain Stop: 02/10/19 08:18 Last Admin: 12/13/18 00:32 Dose: 600 mg Insulin Glargine (Lantus Insulin) 22 units SUBQ HS [facility] Stop: 02/09/19 21:59 Last Admin: 12/13/18 21:08 Dose: 22 units Insulin Human Lispro (Humalog Insulin Sliding Scale) 0 units SUBQ ACHS [facility]; Protocol Stop: 02/09/19 21:59 Last Admin: 12/14/18 12:20 Dose: 6 units Ipratropium [place] (Atrovent Neb 0.5mg/2.5ml) 0.5 mg HHN Q4HRT [facility] Stop: 02/09/19 22:59 Last Admin: 12/14/18 10:54 Dose: Not Given Isosorbide Dinitrate (Isordil) 10 mg PO Q8H [facility] Stop: 02/10/19 08:29 Last Admin: 12/14/18 00:35 Dose: Not Given Latanoprost (Xalatan 0.005% Ophth Soln) 1 drop EACH EYE [facility] Stop: 02/10/19 20:59 Last Admin: 12/13/18 21:09 Dose: Not Given Levothyroxine Sodium (Synthroid) 0.075 mg PO DAILY [facility] Stop: 02/10/19 08:59 Last Admin: 12/13/18 11:30 Dose: Not Given Loratadine (Claritin) 10 mg PO DAILY [facility] Stop: 02/10/19 08:59 Last Admin: 12/14/18 09:47 Dose: 10 mg Lorazepam (Ativan) 0.5 mg PO Q4HR PRN; Protocol PRN Reason: Anxiety Stop: 01/11/19 02:34 Losartan Potassium (Cozaar) 50 mg PO DAILY [facility] Stop: 02/10/19 08:59 Last Admin: 12/13/18 17:48 Dose: Not Given Magnesium Hydroxide (Milk Of Magnesia) 30 ml PO DAILY PRN PRN Reason: Constipation Stop: 02/09/19 21:38 Last Admin: 12/13/18 21:28 Dose: 30 ml Mupirocin (Bactroban Oint) 1 appl NS BID [facility] Stop: 12/18/18 17:01 Last Admin: 12/14/18 09:37 Dose: Not Given Nystatin (Mycostatin Cream) 1 appl TP Q12HR [facility] Stop: 02/10/19 11:59 Last Admin: 12/14/18 09:46 Dose: Not Given Nystatin (Nystop) 100 units TP DAILY [facility] Stop: 02/11/19 11:05 Last Admin: 12/13/18 17:48 Dose: 100 units Ondansetron HCl (Zofran Odt) 4 mg PO Q6H PRN PRN Reason: nausea and vomiting Oxycodone/Acetaminophen (Percocet 5/325mg Oral Tab) 1 tab PO Q6H [facility] Stop: 02/10/19 08:59 Last Admin: 12/14/18 03:03 Dose: 1 tab Rivaroxaban (Xarelto) 15 mg PO QPM [facility] Stop: 02/10/19 16:59 Last Admin: 12/13/18 17:50 Dose: 10 mg Senna (Senna) 17.2 mg PO HS [facility] Stop: 02/10/19 20:59 Last Admin: 12/13/18 21:07 Dose: 17.2 mg Sodium Phosphate (Fleet Enema) 135 ml RC DAILY PRN PRN Reason: Constipation Stop: 02/10/19 08:18 Vitamin B Complex/Vit C/Folic Acid (Vitamin B Complex W/Vitamin C) 1 tab PO DAILY [facility] Stop: 02/10/19 08:59 Last Admin: 12/14/18 09:46 Dose: 1 tab Zolpidem Tartrate (Ambien) 5 mg PO HS PRN PRN Reason: Insomnia Stop: 02/09/19 21:38 General: alert, demented, obese HEENT: NC/AT, PERRLA, EOMI, anicteric sclerae, throat clear Neck: Supple, No JVD, No thyromegaly, +2 carotid pulse wo bruit, No LAD Lungs: CTAB Cardiovascular: RRR, Normal S1, Normal S2, without murmur Abdomen: soft, non-tender, non-distended Extremities: clear Neurological: no change Internal Medicine Assmt/Plan - Assessment Assessment: 1.UTI. 2.HTN. 3.DM. 4.PSYCHOSIS - Plan Plan: CONTINUE ON CURRENT MEDICATION AND DIET. Nutritional Asmnt/Malnutr-PDOC - Dietary Evaluation Malnutrition Findings (Please click <Entered> for more info): Nutritional Asmnt/Malnutrition Start: 12/13/18 20: 14 Text: Status: Active Freq: Protocol: Document 12/13/18 20:14 [email or web address] (Rec: 12/13/18 20:40 [email or web address]) Nutritional Asmnt/Malnutrition Patient General Information Nutritional Screening Moderate Risk Diagnosis psychosis Pertinent Medical Hx/Surgical Hx HTN, DM Subjective Information Pt seen sitting up in bed, eating dinner, says she has a poor appetite and her nose hurts, dislikes the pureed foods & would prefer chopped foods, says she dislikes corn, rice, and spicy foods. Likes chocolate flavors. Pt appears to be edentulous. Current Diet Order/ Nutrition Support Pureed/standard carb- 60 Patient / S.O Not Indicated Pertinent Medications lipitor, dulcolax, coreg, colace, insulin, milk of magnesia, senna, vitamin B complex w/vitamin C/folic acid Pertinent Labs POC Glucose 369 mg/dL Nutritional Hx/Data Height 1.75 m Height (Calculated Centimeters) 175.3 Current Weight (lbs) 140.614 kg Weight (Calculated Kilograms) 140.6 Weight (Calculated Grams) 680640.6 [place] Body Weight 145 lbs, 65.9 kg % [place] Body Weight 214 Body Mass Index (BMI) 45.8 Weight Status Morbidly Obese GI Symptoms GI Symptoms None Difficult in: Chewing Food Allergies No Current %PO Good (75-100%) Estimated Nutritional Goals BEE in Kcals: Using Current wt Calories/Kcals/Kg 15 Kcals Calculated 2115 Protein: Using Current wt Protein g/k.8-1 Protein Calculated 113-141 Fluid: ml 2115 ml (1 ml/kcal) Nutritional Problem 1. Problem Problem Altered nutrition related laboratory values- poc glucose - related to impaired glycemic control as evidenced by poc glucose 369. Intervention/Recommendation Comments continue current diet rx. patient may benefit from heart healthy (low fat/low sodium/ low cholesterol), consistent carbohydrate diet upon discharge. Expected Outcomes/Goals Expected Outcomes/Goals 1- poc glucose trending down from 369 2- maintain po intakes >75% of all meals Electronically Signed By: Jaye Mcbride, MPH, RDN Clinical Dietitian 12/13/2018 8:41 PM
[2018-12-14] MEDS: NYSTATIN 100000 UNITS/GM POWD TP SCH (14:55)
[2018-12-14] MEDS: Levothyroxine 0.075 Mg Tab PO SCH (16:04)
[2018-12-14] MEDS: Acetaminophen 500 MG TAB PO PRN (20:41)
[2018-12-14] MEDS: Atorvastatin Calcium 10 MG TAB PO SCH (20:41)
[2018-12-14] MEDS: Insulin Glargine 100 units/ml 10ml Vial SUBQ SCH (21:12)
[2018-12-15] MEDS: Ipratropium Neb 0.5 mg/2.5 mL UD HHN SCH ×6 (02:55→23:05)
[2018-12-15] MEDS: APAP/Oxycodone 5/325mg Tab PO SCH ×4 (04:00→21:09)
[2018-12-15] MEDS: INSULIN LISPRO SLIDING SCALE 100 UNITS/ML UNIT SUBQ SCH ×4 (06:35→21:12)
[2018-12-15] MEDS: Fluticasone Propionate Nasal 1 SPR SPR NS SCH (09:28)
[2018-12-15] MEDS: NYSTATIN 100000 UNITS/GM POWD TP SCH (09:28)
[2018-12-15] MEDS: Haldol Oral Sol.(concentrate) 10 mg/5 mL Udc PO SCH ×2 (09:31→17:00)
[2018-12-15] MEDS: Vitamin B Complex w/Vitamin C Tab PO SCH (09:39)
[2018-12-15] MEDS: Levothyroxine 0.075 Mg Tab PO SCH (09:46)
[2018-12-15] MEDS: Nystatin Cream 100,000 u/gm Cream 15 gm TP SCH ×2 (09:46→21:10)
--- NOTE | 2018-12-15 12:00 | General Progress Note ---
Subjective - Review of Systems Service Date: 12/15/18 Subjective: awake and alert no distress Objective - Results Recent Labs: Laboratory Last Values POC Glucose 317 MG/DL (70 - 105) H 12/14/18 20:50 Triglycerides 336 mg/dL (<150) H 12/12/18 07:10 Cholesterol 174 mg/dL (<200) 12/12/18 07:10 LDL Cholesterol Direct 98 mg/dL (75-193) 12/12/18 07:10 HDL Cholesterol 30 mg/dL (23-92) 12/12/18 07:10 - Physical Exam Vitals and I&O: Vital Signs Temp 97.4 F 12/15/18 06:11 Pulse 64 12/15/18 10:58 Resp 20 12/15/18 10:58 BP 151/79 12/15/18 09:44 Pulse Ox 96 12/15/18 10:58 Intake & Output 12/14/18 12/15/18 12/15/18 18:59 06:59 18:59 Intake Total 1600 360 Balance 1600 360 Intake: Oral 1600 360 Other: # Voids 5 2 # Bowel Movements 1 0 Active Medications: Current Medications Acetaminophen (Tylenol Extra Strength) 500 mg PO Q4HR PRN PRN Reason: Pain or Fever >101 Stop: 02/09/19 21:38 Last Admin: 12/14/18 20:41 Dose: 500 mg Albuterol Sulfate (Albuterol 2.5mg/3ml Neb Ud) 2.5 mg HHN Q4H PRN PRN Reason: Shortness of Breath or Wheeze Stop: 02/09/19 21:38 Aripiprazole (Abilify) 20 mg PO DAILY [facility]; Protocol Stop: 02/12/19 08:59 Last Admin: 12/15/18 09:32 Dose: Not Given Aspirin (Ecotrin) 81 mg PO DAILY [facility] Stop: 02/10/19 08:59 Last Admin: 12/15/18 09:36 Dose: 81 mg Atorvastatin Calcium (Lipitor) 20 mg PO HS [facility] Stop: 02/10/19 20:59 Last Admin: 12/14/18 20:41 Dose: 20 mg Bisacodyl (Dulcolax 10 Mg Supp) 10 mg RC Q24H PRN PRN Reason: Constipation Stop: 02/10/19 10:59 Last Admin: 12/14/18 05:50 Dose: 10 mg Brimonidine Tartrate (Alphagan 0.1% Oph Soln) 1 drop EACH EYE TID [facility] Stop: 02/10/19 08:59 Last Admin: 12/15/18 09:30 Dose: 1 drop Carvedilol (Coreg) 6.25 mg PO BID [facility] Stop: 02/10/19 08:59 Last Admin: 12/15/18 09:41 Dose: 6.25 mg Dextrose (D50w) 50 ml IVP PRN PRN PRN Reason: Blood Glucose less than 70 Stop: 02/09/19 21:43 Dextrose (Glutose 40%) 18.75 gm PO PRN PRN PRN Reason: Blood Glucose less than 70 Stop: 02/09/19 21:43 Docusate Sodium (Colace) 100 mg PO BID [facility] Stop: 02/10/19 08:59 Last Admin: 12/15/18 09:35 Dose: 100 mg Duloxetine HCl (Cymbalta) 60 mg PO DAILY [facility]; Protocol Stop: 02/10/19 08:59 Last Admin: 12/15/18 09:44 Dose: Not Given Fluconazole (Diflucan) 200 mg PO DAILY [facility] Stop: 12/16/18 09:01 Last Admin: 12/15/18 09:41 Dose: 200 mg Fluticasone Propionate (Flonase) 1 spr NS DAILY [facility] Stop: 02/10/19 08:59 Last Admin: 12/15/18 09:28 Dose: 1 spr Furosemide (Lasix) 20 mg PO BID [facility] Stop: 02/10/19 08:59 Last Admin: 12/15/18 09:40 Dose: 20 mg Glucagon (Glucagen) 1 mg IM PRN PRN PRN Reason: Blood Glucose less than 70 Stop: 02/09/19 21:43 Haloperidol Lactate (Haldol Concentrate 10mg/5ml Susp) 5 mg PO BID [facility]; Protocol Stop: 02/12/19 08:59 Last Admin: 12/15/18 09:31 Dose: Not Given Hydralazine HCl (Apresoline) 10 mg PO BID [facility] Stop: 02/10/19 08:59 Last Admin: 12/15/18 09:41 Dose: 10 mg Ibuprofen (Motrin) 600 mg PO Q8H PRN PRN Reason: for breakthrough pain Stop: 02/10/19 08:18 Last Admin: 12/13/18 00:32 Dose: 600 mg Insulin Glargine (Lantus Insulin) 22 units SUBQ HS [facility] Stop: 02/09/19 21:59 Last Admin: 12/14/18 21:12 Dose: 22 units Insulin Human Lispro (Humalog Insulin Sliding Scale) 0 units SUBQ ACHS [facility]; Protocol Stop: 02/09/19 21:59 Last Admin: 12/15/18 11:56 Dose: 8 units Ipratropium [place] (Atrovent Neb 0.5mg/2.5ml) 0.5 mg HHN Q4HRT [facility] Stop: 02/09/19 22:59 Last Admin: 12/15/18 10:57 Dose: 0.5 mg Isosorbide Dinitrate (Isordil) 10 mg PO Q8H [facility] Stop: 02/10/19 08:29 Last Admin: 12/15/18 09:44 Dose: Not Given Latanoprost (Xalatan 0.005% Ophth Soln) 1 drop EACH EYE [facility] Stop: 02/10/19 20:59 Last Admin: 12/14/18 21:11 Dose: Not Given Levothyroxine Sodium (Synthroid) 0.075 mg PO DAILY [facility] Stop: 02/10/19 08:59 Last Admin: 12/15/18 09:46 Dose: Not Given Loratadine (Claritin) 10 mg PO DAILY [facility] Stop: 02/10/19 08:59 Last Admin: 12/15/18 09:37 Dose: Not Given Lorazepam (Ativan) 0.5 mg PO Q4HR PRN; Protocol PRN Reason: Anxiety Stop: 01/11/19 02:34 Losartan Potassium (Cozaar) 50 mg PO DAILY [facility] Stop: 02/10/19 08:59 Last Admin: 12/15/18 09:41 Dose: 50 mg Magnesium Hydroxide (Milk Of Magnesia) 30 ml PO DAILY PRN PRN Reason: Constipation Stop: 02/09/19 21:38 Last Admin: 12/13/18 21:28 Dose: 30 ml Mupirocin (Bactroban Oint) 1 appl NS BID [facility] Stop: 12/18/18 17:01 Last Admin: 12/15/18 09:29 Dose: 1 appl Nystatin (Mycostatin Cream) 1 appl TP Q12HR [facility] Stop: 02/10/19 11:59 Last Admin: 12/15/18 09:46 Dose: Not Given Nystatin (Nystop) 100 units TP DAILY [facility] Stop: 02/11/19 11:05 Last Admin: 12/15/18 09:28 Dose: 100 units Ondansetron HCl (Zofran Odt) 4 mg PO Q6H PRN PRN Reason: nausea and vomiting Oxycodone/Acetaminophen (Percocet 5/325mg Oral Tab) 1 tab PO Q6H [facility] Stop: 02/10/19 08:59 Last Admin: 12/15/18 10:00 Dose: 1 tab Rivaroxaban (Xarelto) 15 mg PO QPM [facility] Stop: 02/10/19 16:59 Last Admin: 12/14/18 17:42 Dose: 15 mg Senna (Senna) 17.2 mg PO HS [facility] Stop: 02/10/19 20:59 Last Admin: 12/14/18 20:40 Dose: 17.2 mg Sodium Phosphate (Fleet Enema) 135 ml RC DAILY PRN PRN Reason: Constipation Stop: 02/10/19 08:18 Vitamin B Complex/Vit C/Folic Acid (Vitamin B Complex W/Vitamin C) 1 tab PO DAILY [facility] Stop: 02/10/19 08:59 Last Admin: 12/15/18 09:39 Dose: 1 tab Zolpidem Tartrate (Ambien) 5 mg PO HS PRN PRN Reason: Insomnia Stop: 02/09/19 21:38 General: No acute distress HEENT: Atraumatic, PERRLA Neck: Supple, JVD, Thyromegaly Cardiovascular: Regular rate, Normal S1, Normal S2 Lungs: Clear to auscultation Abdomen: Bowel sounds, Soft Assessment/Plan - Assessment Assessment: 1.UTI. 2.HTN. 3.DM. 4.PSYCHOSIS - Plan Plan: continue current treatment Nutritional Asmnt/Malnutr-PDOC - Dietary Evaluation Malnutrition Findings (Please click <Entered> for more info): Nutritional Asmnt/Malnutrition Start: 12/13/18 20: 14 Text: Status: Active Freq: Protocol: Document 12/13/18 20:14 [email or web address] (Rec: 12/13/18 20:40 [email or web address]) Nutritional Asmnt/Malnutrition Patient General Information Nutritional Screening Moderate Risk Diagnosis psychosis Pertinent Medical Hx/Surgical Hx HTN, DM Subjective Information Pt seen sitting up in bed, eating dinner, says she has a poor appetite and her nose hurts, dislikes the pureed foods & would prefer chopped foods, says she dislikes corn, rice, and spicy foods. Likes chocolate flavors. Pt appears to be edentulous. Current Diet Order/ Nutrition Support Pureed/standard carb- 60 Patient / S.O Not Indicated Pertinent Medications lipitor, dulcolax, coreg, colace, insulin, milk of magnesia, senna, vitamin B complex w/vitamin C/folic acid Pertinent Labs POC Glucose 369 mg/dL Nutritional Hx/Data Height 1.75 m Height (Calculated Centimeters) 175.3 Current Weight (lbs) 140.614 kg Weight (Calculated Kilograms) 140.6 Weight (Calculated Grams) 907434.6 [place] Body Weight 145 lbs, 65.9 kg % [place] Body Weight 214 Body Mass Index (BMI) 45.8 Weight Status Morbidly Obese GI Symptoms GI Symptoms None Difficult in: Chewing Food Allergies No Current %PO Good (75-100%) Estimated Nutritional Goals BEE in Kcals: Using Current wt Calories/Kcals/Kg 15 Kcals Calculated 2115 Protein: Using Current wt Protein g/k.8-1 Protein Calculated 113-141 Fluid: ml 2115 ml (1 ml/kcal) Nutritional Problem 1. Problem Problem Altered nutrition related laboratory values- poc glucose - related to impaired glycemic control as evidenced by poc glucose 369. Intervention/Recommendation Comments continue current diet rx. patient may benefit from heart healthy (low fat/low sodium/ low cholesterol), consistent carbohydrate diet upon discharge. Expected Outcomes/Goals Expected Outcomes/Goals 1- poc glucose trending down from 369 2- maintain po intakes >75% of all meals Electronically Signed By: Jaye Mcbride, MPH, RDN Clinical Dietitian 12/13/2018 8:41 PM
[2018-12-15] MEDS: Acetaminophen 500 MG TAB PO PRN (13:12)
[2018-12-15] MEDS: Magnesium Hydroxide (MOM) 30 mL UDC PO PRN (17:35)
[2018-12-15] MEDS: Atorvastatin Calcium 10 MG TAB PO SCH (21:10)
[2018-12-15] MEDS: Insulin Glargine 100 units/ml 10ml Vial SUBQ SCH (21:11)
[2018-12-16] MEDS: APAP/Oxycodone 5/325mg Tab PO SCH ×4 (03:19→21:44)
[2018-12-16] MEDS: Ipratropium Neb 0.5 mg/2.5 mL UD HHN SCH ×6 (03:36→22:15)
[2018-12-16] MEDS: INSULIN LISPRO SLIDING SCALE 100 UNITS/ML UNIT SUBQ SCH ×6 (06:30→21:45)
[2018-12-16] MEDS: Fluticasone Propionate Nasal 1 SPR SPR NS SCH (09:00)
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
[2018-12-16] MEDS: Vitamin B Complex w/Vitamin C Tab PO SCH (12:33)
[2018-12-16] MEDS: Levothyroxine 0.075 Mg Tab PO SCH (12:38)
[2018-12-16] MEDS: Haldol Oral Sol.(concentrate) 10 mg/5 mL Udc PO SCH ×2 (12:42→21:14)
--- NOTE | 2018-12-16 15:59 | General Progress Note ---
Subjective - Review of Systems Service Date: 12/16/18 Subjective: awake and alert no distress Objective - Results Recent Labs: Laboratory Last Values POC Glucose 219 MG/DL (70 - 105) H 12/16/18 04:57 Triglycerides 336 mg/dL (<150) H 12/12/18 07:10 Cholesterol 174 mg/dL (<200) 12/12/18 07:10 LDL Cholesterol Direct 98 mg/dL (75-193) 12/12/18 07:10 HDL Cholesterol 30 mg/dL (23-92) 12/12/18 07:10 - Physical Exam Vitals and I&O: Vital Signs Temp 98.3 F 12/16/18 14:00 Pulse 62 12/16/18 15:42 Resp 20 12/16/18 15:42 BP 143/59 12/16/18 14:00 Pulse Ox 96 12/16/18 15:42 Intake & Output 12/15/18 12/16/18 12/16/18 18:59 06:59 18:59 Intake Total 1000 Balance 1000 Intake: Oral 1000 Other: # Voids 4 # Bowel Movements 0 Active Medications: Current Medications Acetaminophen (Tylenol Extra Strength) 500 mg PO Q4HR PRN PRN Reason: Pain or Fever >101 Stop: 02/09/19 21:38 Last Admin: 12/15/18 13:12 Dose: 500 mg Albuterol Sulfate (Albuterol 2.5mg/3ml Neb Ud) 2.5 mg HHN Q4H PRN PRN Reason: Shortness of Breath or Wheeze Stop: 02/09/19 21:38 Aripiprazole (Abilify) 20 mg PO DAILY [facility]; Protocol Stop: 02/12/19 08:59 Last Admin: 12/16/18 12:34 Dose: 20 mg Aspirin (Ecotrin) 81 mg PO DAILY [facility] Stop: 02/10/19 08:59 Last Admin: 12/16/18 12:38 Dose: 81 mg Atorvastatin Calcium (Lipitor) 20 mg PO HS [facility] Stop: 02/10/19 20:59 Last Admin: 12/15/18 21:10 Dose: 20 mg Bisacodyl (Dulcolax 10 Mg Supp) 10 mg RC Q24H PRN PRN Reason: Constipation Stop: 02/10/19 10:59 Last Admin: 12/14/18 05:50 Dose: 10 mg Brimonidine Tartrate (Alphagan 0.1% Oph Soln) 1 drop EACH EYE TID [facility] Stop: 02/10/19 08:59 Last Admin: 12/15/18 21:10 Dose: 1 drop Carvedilol (Coreg) 6.25 mg PO BID [facility] Stop: 02/10/19 08:59 Last Admin: 12/16/18 12:41 Dose: 6.25 mg Dextrose (D50w) 50 ml IVP PRN PRN PRN Reason: Blood Glucose less than 70 Stop: 02/09/19 21:43 Dextrose (Glutose 40%) 18.75 gm PO PRN PRN PRN Reason: Blood Glucose less than 70 Stop: 02/09/19 21:43 Docusate Sodium (Colace) 100 mg PO BID [facility] Stop: 02/10/19 08:59 Last Admin: 12/16/18 12:35 Dose: 100 mg Duloxetine HCl (Cymbalta) 60 mg PO DAILY [facility]; Protocol Stop: 02/10/19 08:59 Last Admin: 12/16/18 12:35 Dose: 60 mg Fluticasone Propionate (Flonase) 1 spr NS DAILY [facility] Stop: 02/10/19 08:59 Last Admin: 12/15/18 09:28 Dose: 1 spr Furosemide (Lasix) 20 mg PO BID [facility] Stop: 02/10/19 08:59 Last Admin: 12/16/18 12:36 Dose: 20 mg Glucagon (Glucagen) 1 mg IM PRN PRN PRN Reason: Blood Glucose less than 70 Stop: 02/09/19 21:43 Haloperidol Lactate (Haldol Concentrate 10mg/5ml Susp) 5 mg PO BID [facility]; Protocol Stop: 02/12/19 08:59 Last Admin: 12/16/18 12:42 Dose: 5 mg Hydralazine HCl (Apresoline) 10 mg PO BID [facility] Stop: 02/10/19 08:59 Last Admin: 12/16/18 12:40 Dose: 10 mg Ibuprofen (Motrin) 600 mg PO Q8H PRN PRN Reason: for breakthrough pain Stop: 02/10/19 08:18 Last Admin: 12/16/18 05:32 Dose: 600 mg Insulin Glargine (Lantus Insulin) 26 units SUBQ HS [facility] Stop: 02/13/19 20:59 Last Admin: 12/15/18 21:11 Dose: 26 units Insulin Human Lispro (Humalog Insulin Sliding Scale) 0 units SUBQ ACHS [facility]; Protocol Stop: 02/09/19 21:59 Last Admin: 12/16/18 06:51 Dose: Not Given Ipratropium [place] (Atrovent Neb 0.5mg/2.5ml) 0.5 mg HHN Q4HRT [facility] Stop: 02/09/19 22:59 Last Admin: 12/16/18 15:41 Dose: Not Given Isosorbide Dinitrate (Isordil) 10 mg PO Q8H [facility] Stop: 02/10/19 08:29 Last Admin: 12/16/18 12:37 Dose: 10 mg Latanoprost (Xalatan 0.005% Ophth Soln) 1 drop EACH EYE HS [facility] Stop: 02/10/19 20:59 Last Admin: 12/15/18 21:10 Dose: 1 drop Levothyroxine Sodium (Synthroid) 0.075 mg PO DAILY [facility] Stop: 02/10/19 08:59 Last Admin: 12/16/18 12:38 Dose: 0.075 mg Loratadine (Claritin) 10 mg PO DAILY [facility] Stop: 02/10/19 08:59 Last Admin: 12/15/18 09:37 Dose: Not Given Lorazepam (Ativan) 0.5 mg PO Q4HR PRN; Protocol PRN Reason: Anxiety Stop: 01/11/19 02:34 Last Admin: 12/16/18 12:41 Dose: 0.5 mg Losartan Potassium (Cozaar) 50 mg PO DAILY [facility] Stop: 02/10/19 08:59 Last Admin: 12/16/18 12:39 Dose: 50 mg Magnesium Hydroxide (Milk Of Magnesia) 30 ml PO DAILY PRN PRN Reason: Constipation Stop: 02/09/19 21:38 Last Admin: 12/15/18 17:35 Dose: 30 ml Mupirocin (Bactroban Oint) 1 appl NS BID [facility] Stop: 12/18/18 17:01 Last Admin: 12/15/18 16:59 Dose: Not Given Nystatin (Mycostatin Cream) 1 appl TP Q12HR [facility] Stop: 02/10/19 11:59 Last Admin: 12/15/18 21:10 Dose: Not Given Nystatin (Nystop) 100 units TP DAILY [facility] Stop: 02/11/19 11:05 Last Admin: 12/15/18 09:28 Dose: 100 units Ondansetron HCl (Zofran Odt) 4 mg PO Q6H PRN PRN Reason: nausea and vomiting Oxycodone/Acetaminophen (Percocet 5/325mg Oral Tab) 1 tab PO Q6H [facility] Stop: 02/10/19 08:59 Last Admin: 12/16/18 12:31 Dose: 1 tab Rivaroxaban (Xarelto) 15 mg PO QPM [facility] Stop: 02/10/19 16:59 Last Admin: 12/15/18 17:40 Dose: Not Given Senna (Senna) 17.2 mg PO HS [facility] Stop: 02/10/19 20:59 Last Admin: 12/15/18 21:09 Dose: 17.2 mg Sodium Phosphate (Fleet Enema) 135 ml RC DAILY PRN PRN Reason: Constipation Stop: 02/10/19 08:18 Vitamin B Complex/Vit C/Folic Acid (Vitamin B Complex W/Vitamin C) 1 tab PO DAILY [facility] Stop: 02/10/19 08:59 Last Admin: 12/16/18 12:33 Dose: 1 tab Zolpidem Tartrate (Ambien) 5 mg PO HS PRN PRN Reason: Insomnia Stop: 02/09/19 21:38 General: No acute distress HEENT: Atraumatic, PERRLA Neck: Supple, JVD, Thyromegaly Cardiovascular: Regular rate, Normal S1, Normal S2 Lungs: Clear to auscultation Abdomen: Bowel sounds, Soft Assessment/Plan - Assessment Assessment: 1.UTI. 2.HTN. 3.DM. 4.PSYCHOSIS - Plan Plan: continue current treatment Nutritional Asmnt/Malnutr-PDOC - Dietary Evaluation Malnutrition Findings (Please click <Entered> for more info): Nutritional Asmnt/Malnutrition Start: 12/13/18 20: 14 Text: Status: Active Freq: Protocol: Document 12/13/18 20:14 [email or web address] (Rec: 12/13/18 20:40 [email or web address]) Nutritional Asmnt/Malnutrition Patient General Information Nutritional Screening Moderate Risk Diagnosis psychosis Pertinent Medical Hx/Surgical Hx HTN, DM Subjective Information Pt seen sitting up in bed, eating dinner, says she has a poor appetite and her nose hurts, dislikes the pureed foods & would prefer chopped foods, says she dislikes corn, rice, and spicy foods. Likes chocolate flavors. Pt appears to be edentulous. Current Diet Order/ Nutrition Support Pureed/standard carb- 60 Patient / S.O Not Indicated Pertinent Medications lipitor, dulcolax, coreg, colace, insulin, milk of magnesia, senna, vitamin B complex w/vitamin C/folic acid Pertinent Labs POC Glucose 369 mg/dL Nutritional Hx/Data Height 1.75 m Height (Calculated Centimeters) 175.3 Current Weight (lbs) 140.614 kg Weight (Calculated Kilograms) 140.6 Weight (Calculated Grams) 662750.6 [place] Body Weight 145 lbs, 65.9 kg % [place] Body Weight 214 Body Mass Index (BMI) 45.8 Weight Status Morbidly Obese GI Symptoms GI Symptoms None Difficult in: Chewing Food Allergies No Current %PO Good (75-100%) Estimated Nutritional Goals BEE in Kcals: Using Current wt Calories/Kcals/Kg 15 Kcals Calculated 2115 Protein: Using Current wt Protein g/k.8-1 Protein Calculated 113-141 Fluid: ml 2115 ml (1 ml/kcal) Nutritional Problem 1. Problem Problem Altered nutrition related laboratory values- poc glucose - related to impaired glycemic control as evidenced by poc glucose 369. Intervention/Recommendation Comments continue current diet rx. patient may benefit from heart healthy (low fat/low sodium/ low cholesterol), consistent carbohydrate diet upon discharge. Expected Outcomes/Goals Expected Outcomes/Goals 1- poc glucose trending down from 369 2- maintain po intakes >75% of all meals Electronically Signed By: Jaye Mcbride, MPH, RDN Clinical Dietitian 12/13/2018 8:41 PM
[2018-12-16] MEDS: NYSTATIN 100000 UNITS/GM POWD TP SCH (18:18)
[2018-12-16] MEDS: Magnesium Hydroxide (MOM) 30 mL UDC PO PRN (18:30)
[2018-12-16] MEDS: Atorvastatin Calcium 10 MG TAB PO SCH (21:05)
[2018-12-16] MEDS: Insulin Glargine 100 units/ml 10ml Vial SUBQ SCH ×2 (21:12→21:44)
[2018-12-16] MEDS: Nystatin Cream 100,000 u/gm Cream 15 gm TP SCH (22:34)
[2018-12-17] MEDS: Ipratropium Neb 0.5 mg/2.5 mL UD HHN SCH ×6 (02:06→22:06)
--- NOTE | 2018-12-17 03:30 | Progress Notes ---
DATE: 12/16/2018 SUBJECTIVE: The patient was seen and evaluated. The patient was interviewed. Today on qiep-bc-ozal evaluation, the patient reports she does not believe in Psychiatry. Then, she talked about a sister who joined the court and she believes that she may be poisoned with Anthrax. She also refused the medications because she saw a environmental health specialist come in earlier and anointed her. On examination, ____, disorganized, believed that she was anointed by the environmental health specialist. ASSESSMENT AND PLAN: Due to the patient's ongoing severe psychotic symptoms and believing that she was anointed by the environmental health specialist this morning and refusing medications, unable to form a safe plan outside a structured environment, we will continue with primary psychiatric treatment plan and goals. [facility]# [id number]
[2018-12-17] MEDS: APAP/Oxycodone 5/325mg Tab PO SCH ×5 (03:36→22:03)
[2018-12-17] MEDS: INSULIN LISPRO SLIDING SCALE 100 UNITS/ML UNIT SUBQ SCH ×4 (06:29→22:05)
[2018-12-17] MEDS: Fluticasone Propionate Nasal 1 SPR SPR NS SCH (09:04)
[2018-12-17] MEDS: NYSTATIN 100000 UNITS/GM POWD TP SCH (09:04)
[2018-12-17] MEDS: Magnesium Hydroxide (MOM) 30 mL UDC PO PRN (09:05)
[2018-12-17] MEDS: Nystatin Cream 100,000 u/gm Cream 15 gm TP SCH ×2 (09:05→21:46)
[2018-12-17] MEDS: Haldol Oral Sol.(concentrate) 10 mg/5 mL Udc PO SCH ×2 (09:06→17:44)
[2018-12-17] MEDS: Vitamin B Complex w/Vitamin C Tab PO SCH (09:06)
[2018-12-17] MEDS: Levothyroxine 0.075 Mg Tab PO SCH (09:08)
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
--- NOTE | 2018-12-17 19:00 | Internal Medicine Prog Note ---
Internal Medicine Subjective - Subjective Service Date: 12/17/18 Patient seen and examined:: with staff (SHE FEELS WELL) Patient is:: awake, verbal, in bed, talking, confused Per staff patient has:: no adverse event Internal Medicine Objective - Results Recent Labs: Laboratory Last Values POC Glucose 258 MG/DL (70 - 105) H 12/17/18 17:40 Triglycerides 336 mg/dL (<150) H 12/12/18 07:10 Cholesterol 174 mg/dL (<200) 12/12/18 07:10 LDL Cholesterol Direct 98 mg/dL (75-193) 12/12/18 07:10 HDL Cholesterol 30 mg/dL (23-92) 12/12/18 07:10 - Physical Exam Vitals and I&O: Vital Signs Temp 0 F 12/17/18 06:14 Pulse 75 12/17/18 15:40 Resp 20 12/17/18 15:40 BP 137/74 12/17/18 09:08 Pulse Ox 97 12/17/18 15:40 Intake & Output 12/16/18 12/17/18 12/17/18 18:59 06:59 18:59 Intake Total 1250 480 900 Output Total 1 Balance 1250 479 900 Intake: Oral 1250 480 900 Output: Urine/Stool Mix 1 Other: # Voids 4 4 # Bowel Movements 0 0 Active Medications: Current Medications Acetaminophen (Tylenol Extra Strength) 500 mg PO Q4HR PRN PRN Reason: Pain or Fever >101 Stop: 02/09/19 21:38 Last Admin: 12/15/18 13:12 Dose: 500 mg Albuterol Sulfate (Albuterol 2.5mg/3ml Neb Ud) 2.5 mg HHN Q4H PRN PRN Reason: Shortness of Breath or Wheeze Stop: 02/09/19 21:38 Aripiprazole (Abilify) 20 mg PO DAILY [facility]; Protocol Stop: 02/12/19 08:59 Last Admin: 12/17/18 09:08 Dose: 20 mg Aspirin (Ecotrin) 81 mg PO DAILY [facility] Stop: 02/10/19 08:59 Last Admin: 12/17/18 09:06 Dose: 81 mg Atorvastatin Calcium (Lipitor) 20 mg PO HS [facility] Stop: 02/10/19 20:59 Last Admin: 12/16/18 21:05 Dose: 20 mg Bisacodyl (Dulcolax 10 Mg Supp) 10 mg RC Q24H PRN PRN Reason: Constipation Stop: 02/10/19 10:59 Last Admin: 12/14/18 05:50 Dose: 10 mg Brimonidine Tartrate (Alphagan 0.1% Ophth Soln) 1 drop EACH EYE TID [facility] Stop: 02/10/19 08:59 Last Admin: 12/17/18 16:19 Dose: Not Given Carvedilol (Coreg) 6.25 mg PO BID [facility] Stop: 02/10/19 08:59 Last Admin: 12/17/18 16:19 Dose: Not Given Dextrose (D50w) 50 ml IVP PRN PRN PRN Reason: Blood Glucose less than 70 Stop: 02/09/19 21:43 Dextrose (Glutose 40%) 18.75 gm PO PRN PRN PRN Reason: Blood Glucose less than 70 Stop: 02/09/19 21:43 Docusate Sodium (Colace) 100 mg PO BID [facility] Stop: 02/10/19 08:59 Last Admin: 12/17/18 17:44 Dose: Not Given Duloxetine HCl (Cymbalta) 60 mg PO DAILY [facility]; Protocol Stop: 02/10/19 08:59 Last Admin: 12/17/18 09:08 Dose: 30 mg Fluticasone Propionate (Flonase) 1 spr NS DAILY [facility] Stop: 02/10/19 08:59 Last Admin: 12/17/18 09:04 Dose: Not Given Furosemide (Lasix) 20 mg PO BID [facility] Stop: 02/10/19 08:59 Last Admin: 12/17/18 16:20 Dose: Not Given Glucagon (Glucagen) 1 mg IM PRN PRN PRN Reason: BS below 70&dextrose ineffecti Stop: 02/09/19 21:43 Haloperidol Lactate (Haldol Concentrate 10mg/5ml Susp) 5 mg PO BID [facility]; Protocol Stop: 02/12/19 08:59 Last Admin: 12/17/18 17:44 Dose: Not Given Hydralazine HCl (Apresoline) 10 mg PO BID [facility] Stop: 02/10/19 08:59 Last Admin: 12/17/18 16:20 Dose: Not Given Ibuprofen (Motrin) 600 mg PO Q8H PRN PRN Reason: for breakthrough pain Stop: 02/10/19 08:18 Last Admin: 12/16/18 23:16 Dose: 600 mg Insulin Glargine (Lantus Insulin) 26 units SUBQ HS [facility] Stop: 02/13/19 20:59 Last Admin: 12/16/18 21:44 Dose: 26 units Insulin Human Lispro (Humalog Insulin Sliding Scale) 0 units SUBQ ACHS [facility]; Protocol Stop: 02/09/19 21:59 Last Admin: 12/17/18 18:03 Dose: 6 units Ipratropium [place] (Atrovent Neb 0.5mg/2.5ml) 0.5 mg HHN Q4HRT [facility] Stop: 02/09/19 22:59 Last Admin: 12/17/18 15:35 Dose: 0.5 mg Isosorbide Dinitrate (Isordil) 10 mg PO Q8H [facility] Stop: 02/10/19 08:29 Last Admin: 12/17/18 17:43 Dose: Not Given Latanoprost (Xalatan 0.005% Oph Soln) 1 drop EACH EYE [facility] Stop: 02/10/19 20:59 Last Admin: 12/16/18 21:06 Dose: 1 drop Levothyroxine Sodium (Synthroid) 0.075 mg PO DAILY [facility] Stop: 02/10/19 08:59 Last Admin: 12/17/18 09:08 Dose: Not Given Loratadine (Claritin) 10 mg PO DAILY [facility] Stop: 02/10/19 08:59 Last Admin: 12/17/18 09:06 Dose: 10 mg Lorazepam (Ativan) 0.5 mg PO Q4HR PRN; Protocol PRN Reason: Anxiety Stop: 01/11/19 02:34 Last Admin: 12/16/18 23:16 Dose: 0.5 mg Losartan Potassium (Cozaar) 50 mg PO DAILY [facility] Stop: 02/10/19 08:59 Last Admin: 12/17/18 09:08 Dose: 50 mg Magnesium Hydroxide (Milk Of Magnesia) 30 ml PO DAILY PRN PRN Reason: Constipation Stop: 02/09/19 21:38 Last Admin: 12/17/18 09:05 Dose: 30 ml Mupirocin (Bactroban Oint) 1 appl NS BID [facility] Stop: 12/18/18 17:01 Last Admin: 12/17/18 16:21 Dose: Not Given Nystatin (Mycostatin Cream) 1 appl TP Q12HR [facility] Stop: 02/10/19 11:59 Last Admin: 12/17/18 09:05 Dose: 1 appl Nystatin (Nystop) 100 units TP DAILY [facility] Stop: 02/11/19 11:05 Last Admin: 12/17/18 09:04 Dose: Not Given Ondansetron HCl (Zofran Odt) 4 mg PO Q6H PRN PRN Reason: nausea and vomiting Oxycodone/Acetaminophen (Percocet 5/325mg Oral Tab) 1 tab PO Q6H [facility] Stop: 02/10/19 08:59 Last Admin: 12/17/18 14:18 Dose: 1 tab Rivaroxaban (Xarelto) 15 mg PO QPM [facility] Stop: 02/10/19 16:59 Last Admin: 12/17/18 17:44 Dose: Not Given Senna (Senna) 17.2 mg PO HS [facility] Stop: 02/10/19 20:59 Last Admin: 12/16/18 23:17 Dose: Not Given Sodium Phosphate (Fleet Enema) 135 ml RC DAILY PRN PRN Reason: Constipation Stop: 02/10/19 08:18 Vitamin B Complex/Vit C/Folic Acid (Vitamin B Complex W/Vitamin C) 1 tab PO DAILY [facility] Stop: 02/10/19 08:59 Last Admin: 12/17/18 09:06 Dose: 1 tab Zolpidem Tartrate (Ambien) 5 mg PO HS PRN PRN Reason: Insomnia Stop: 02/09/19 21:38 General: alert, demented, obese HEENT: NC/AT, PERRLA, EOMI, anicteric sclerae, throat clear Neck: Supple, No JVD, No thyromegaly, +2 carotid pulse wo bruit, No LAD Lungs: CTAB Cardiovascular: RRR, Normal S1, Normal S2, without murmur Abdomen: soft, non-tender, non-distended Extremities: clear Neurological: no change Internal Medicine Assmt/Plan - Assessment Assessment: 1.HTN 2.DJD. 3.DM. 4.PSYCHOSIS - Plan Plan: CONTINUE ON CURRENT MEDICATION AND DIET. Nutritional Asmnt/Malnutr-PDOC - Dietary Evaluation Malnutrition Findings (Please click <Entered> for more info): Nutritional Asmnt/Malnutrition Start: 12/13/18 20: 14 Text: Status: Active Freq: Protocol: Document 12/13/18 20:14 [email or web address] (Rec: 12/13/18 20:40 [email or web address]) Nutritional Asmnt/Malnutrition Patient General Information Nutritional Screening Moderate Risk Diagnosis psychosis Pertinent Medical Hx/Surgical Hx HTN, DM Subjective Information Pt seen sitting up in bed, eating dinner, says she has a poor appetite and her nose hurts, dislikes the pureed foods & would prefer chopped foods, says she dislikes corn, rice, and spicy foods. Likes chocolate flavors. Pt appears to be edentulous. Current Diet Order/ Nutrition Support Pureed/standard carb- 60 Patient / S.O Not Indicated Pertinent Medications lipitor, dulcolax, coreg, colace, insulin, milk of magnesia, senna, vitamin B complex w/vitamin C/folic acid Pertinent Labs POC Glucose 369 mg/dL Nutritional Hx/Data Height 1.75 m Height (Calculated Centimeters) 175.3 Current Weight (lbs) 140.614 kg Weight (Calculated Kilograms) 140.6 Weight (Calculated Grams) 457948.6 [place] Body Weight 145 lbs, 65.9 kg % [place] Body Weight 214 Body Mass Index (BMI) 45.8 Weight Status Morbidly Obese GI Symptoms GI Symptoms None Difficult in: Chewing Food Allergies No Current %PO Good (75-100%) Estimated Nutritional Goals BEE in Kcals: Using Current wt Calories/Kcals/Kg 15 Kcals Calculated 2115 Protein: Using Current wt Protein g/k.8-1 Protein Calculated 113-141 Fluid: ml 2115 ml (1 ml/kcal) Nutritional Problem 1. Problem Problem Altered nutrition related laboratory values- poc glucose - related to impaired glycemic control as evidenced by poc glucose 369. Intervention/Recommendation Comments continue current diet rx. patient may benefit from heart healthy (low fat/low sodium/ low cholesterol), consistent carbohydrate diet upon discharge. Expected Outcomes/Goals Expected Outcomes/Goals 1- poc glucose trending down from 369 2- maintain po intakes >75% of all meals Electronically Signed By: Jaye Mcbrdie, MPH, RDN Clinical Dietitian 12/13/2018 8:41 PM
[2018-12-17] MEDS: Atorvastatin Calcium 10 MG TAB PO SCH (21:50)
[2018-12-17] MEDS: Insulin Glargine 100 units/ml 10ml Vial SUBQ SCH (22:04)
[2018-12-17] MEDS: Acetaminophen 500 MG TAB PO PRN (22:25)
[2018-12-18] MEDS: Ipratropium Neb 0.5 mg/2.5 mL UD HHN SCH ×6 (02:14→22:54)
[2018-12-18] MEDS: APAP/Oxycodone 5/325mg Tab PO SCH ×5 (03:28→21:41)
[2018-12-18] MEDS: INSULIN LISPRO SLIDING SCALE 100 UNITS/ML UNIT SUBQ SCH ×3 (06:57→21:41)
[2018-12-18] MEDS: Levothyroxine 0.075 Mg Tab PO SCH (10:01)
[2018-12-18] MEDS: Nystatin Cream 100,000 u/gm Cream 15 gm TP SCH ×2 (10:02→21:41)
[2018-12-18] MEDS: Haldol Oral Sol.(concentrate) 10 mg/5 mL Udc PO SCH ×2 (10:02→16:24)
[2018-12-18] MEDS: NYSTATIN 100000 UNITS/GM POWD TP SCH (10:03)
[2018-12-18] MEDS: Fluticasone Propionate Nasal 1 SPR SPR NS SCH (10:03)
[2018-12-18] MEDS: Vitamin B Complex w/Vitamin C Tab PO SCH (10:03)
--- NOTE | 2018-12-18 21:41 | Internal Medicine Prog Note ---
Internal Medicine Subjective - Subjective Service Date: 12/18/18 Patient seen and examined:: with staff (SHE IS DOING BETTER) Patient is:: awake, verbal, in bed, talking, confused Per staff patient has:: no adverse event Internal Medicine Objective - Results Recent Labs: Laboratory Last Values POC Glucose 312 MG/DL (70 - 105) H 12/18/18 17:20 Triglycerides 336 mg/dL (<150) H 12/12/18 07:10 Cholesterol 174 mg/dL (<200) 12/12/18 07:10 LDL Cholesterol Direct 98 mg/dL (75-193) 12/12/18 07:10 HDL Cholesterol 30 mg/dL (23-92) 12/12/18 07:10 - Physical Exam Vitals and I&O: Vital Signs Temp 98.6 F 12/18/18 19:46 Pulse 96 12/18/18 20:01 Resp 18 12/18/18 19:46 BP 190/76 12/18/18 16:25 Pulse Ox 93 12/18/18 19:46 Intake & Output 12/18/18 12/18/18 12/19/18 06:59 18:59 06:59 Intake Total 480 1200 240 Output Total 1 Balance 479 1200 240 Intake: Oral 480 1200 240 Output: Urine/Stool Mix 1 Other: # Voids 3 2 # Bowel Movements 0 1 0 Active Medications: Current Medications Acetaminophen (Tylenol Extra Strength) 500 mg PO Q4HR PRN PRN Reason: Pain or Fever >101 Stop: 02/09/19 21:38 Last Admin: 12/17/18 22:25 Dose: 500 mg Albuterol Sulfate (Albuterol 2.5mg/3ml Neb Ud) 2.5 mg HHN Q4H PRN PRN Reason: Shortness of Breath or Wheeze Stop: 02/09/19 21:38 Aripiprazole (Abilify) 20 mg PO DAILY [facility]; Protocol Stop: 02/12/19 08:59 Last Admin: 12/18/18 10:02 Dose: Not Given Aspirin (Ecotrin) 81 mg PO DAILY [facility] Stop: 02/10/19 08:59 Last Admin: 12/18/18 10:02 Dose: Not Given Atorvastatin Calcium (Lipitor) 20 mg PO HS [facility] Stop: 02/10/19 20:59 Last Admin: 12/17/18 21:50 Dose: Not Given Bisacodyl (Dulcolax 10 Mg Supp) 10 mg RC Q24H PRN PRN Reason: Constipation Stop: 02/10/19 10:59 Last Admin: 12/14/18 05:50 Dose: 10 mg Brimonidine Tartrate (Alphagan 0.1% Ophth Soln) 1 drop EACH EYE TID [facility] Stop: 02/10/19 08:59 Last Admin: 12/18/18 16:04 Dose: Not Given Carvedilol (Coreg) 6.25 mg PO BID [facility] Stop: 02/10/19 08:59 Last Admin: 12/18/18 16:25 Dose: 6.25 mg Dextrose (D50w) 50 ml IVP PRN PRN PRN Reason: Blood Glucose less than 70 Stop: 02/09/19 21:43 Dextrose (Glutose 40%) 18.75 gm PO PRN PRN PRN Reason: Blood Glucose less than 70 Stop: 02/09/19 21:43 Docusate Sodium (Colace) 100 mg PO BID [facility] Stop: 02/10/19 08:59 Last Admin: 12/18/18 16:25 Dose: 100 mg Duloxetine HCl (Cymbalta) 60 mg PO DAILY [facility]; Protocol Stop: 02/10/19 08:59 Last Admin: 12/18/18 10:02 Dose: Not Given Fluticasone Propionate (Flonase) 1 spr NS DAILY [facility] Stop: 02/10/19 08:59 Last Admin: 12/18/18 10:03 Dose: Not Given Furosemide (Lasix) 20 mg PO BID [facility] Stop: 02/10/19 08:59 Last Admin: 12/18/18 16:25 Dose: 20 mg Glucagon (Glucagen) 1 mg IM PRN PRN PRN Reason: BS below 70&dextrose ineffecti Stop: 02/09/19 21:43 Haloperidol Lactate (Haldol Concentrate 10mg/5ml Susp) 5 mg PO BID [facility]; Protocol Stop: 02/12/19 08:59 Last Admin: 12/18/18 16:24 Dose: 5 mg Hydralazine HCl (Apresoline) 10 mg PO BID [facility] Stop: 02/10/19 08:59 Last Admin: 12/18/18 16:25 Dose: 10 mg Ibuprofen (Motrin) 600 mg PO Q8H PRN PRN Reason: for breakthrough pain Stop: 02/10/19 08:18 Last Admin: 12/16/18 23:16 Dose: 600 mg Insulin Glargine (Lantus Insulin) 26 units SUBQ HS [facility] Stop: 02/13/19 20:59 Last Admin: 12/17/18 22:04 Dose: 26 units Insulin Human Lispro (Humalog Insulin Sliding Scale) 0 units SUBQ ACHS [facility]; Protocol Stop: 02/09/19 21:59 Last Admin: 12/18/18 11:58 Dose: Not Given Ipratropium [place] (Atrovent Neb 0.5mg/2.5ml) 0.5 mg HHN Q4HRT [facility] Stop: 02/09/19 22:59 Last Admin: 12/18/18 18:47 Dose: 0.5 mg Isosorbide Dinitrate (Isordil) 10 mg PO Q8H [facility] Stop: 02/10/19 08:29 Last Admin: 12/18/18 16:24 Dose: 10 mg Latanoprost (Xalatan 0.005% Oph Soln) 1 drop EACH EYE [facility] Stop: 02/10/19 20:59 Last Admin: 12/17/18 21:45 Dose: 1 drop Levothyroxine Sodium (Synthroid) 0.075 mg PO DAILY [facility] Stop: 02/10/19 08:59 Last Admin: 12/18/18 10:01 Dose: Not Given Loratadine (Claritin) 10 mg PO DAILY [facility] Stop: 02/10/19 08:59 Last Admin: 12/18/18 10:02 Dose: Not Given Lorazepam (Ativan) 0.5 mg PO Q4HR PRN; Protocol PRN Reason: Anxiety Stop: 01/11/19 02:34 Last Admin: 12/18/18 02:55 Dose: 0.5 mg Losartan Potassium (Cozaar) 50 mg PO DAILY [facility] Stop: 02/10/19 08:59 Last Admin: 12/18/18 10:01 Dose: Not Given Magnesium Hydroxide (Milk Of Magnesia) 30 ml PO DAILY PRN PRN Reason: Constipation Stop: 02/09/19 21:38 Last Admin: 12/17/18 09:05 Dose: 30 ml Nystatin (Mycostatin Cream) 1 appl TP Q12HR [facility] Stop: 02/10/19 11:59 Last Admin: 12/18/18 10:02 Dose: Not Given Nystatin (Nystop) 100 units TP DAILY [facility] Stop: 02/11/19 11:05 Last Admin: 12/18/18 10:03 Dose: Not Given Ondansetron HCl (Zofran Odt) 4 mg PO Q6H PRN PRN Reason: nausea and vomiting Oxycodone/Acetaminophen (Percocet 5/325mg Oral Tab) 1 tab PO Q6H [facility] Stop: 02/10/19 08:59 Last Admin: 12/18/18 16:25 Dose: 1 tab Rivaroxaban (Xarelto) 15 mg PO QPM [facility] Stop: 02/10/19 16:59 Last Admin: 12/18/18 16:26 Dose: Not Given Senna (Senna) 17.2 mg PO HS [facility] Stop: 02/10/19 20:59 Last Admin: 12/17/18 21:45 Dose: Not Given Sodium Phosphate (Fleet Enema) 135 ml RC DAILY PRN PRN Reason: Constipation Stop: 02/10/19 08:18 Vitamin B Complex/Vit C/Folic Acid (Vitamin B Complex W/Vitamin C) 1 tab PO DAILY [facility] Stop: 02/10/19 08:59 Last Admin: 12/18/18 10:03 Dose: Not Given Zolpidem Tartrate (Ambien) 5 mg PO HS PRN PRN Reason: Insomnia Stop: 02/09/19 21:38 Last Admin: 12/17/18 22:09 Dose: 5 mg General: alert, demented, obese HEENT: NC/AT, PERRLA, EOMI, anicteric sclerae, throat clear Neck: Supple, No JVD, No thyromegaly, +2 carotid pulse wo bruit, No LAD Lungs: CTAB Cardiovascular: RRR, Normal S1, Normal S2, without murmur Abdomen: soft, non-tender, non-distended Extremities: clear Neurological: no change Internal Medicine Assmt/Plan - Assessment Assessment: 1.HTN 2.DJD. 3.DM. 4.PSYCHOSIS - Plan Plan: CONTINUE ON CURRENT MEDICATION AND DIET. Nutritional Asmnt/Malnutr-PDOC - Dietary Evaluation Malnutrition Findings (Please click <Entered> for more info): Nutritional Asmnt/Malnutrition Start: 12/13/18 20: 14 Text: Status: Active Freq: Protocol: Document 12/13/18 20:14 [email or web address] (Rec: 12/13/18 20:40 [email or web address]) Nutritional Asmnt/Malnutrition Patient General Information Nutritional Screening Moderate Risk Diagnosis psychosis Pertinent Medical Hx/Surgical Hx HTN, DM Subjective Information Pt seen sitting up in bed, eating dinner, says she has a poor appetite and her nose hurts, dislikes the pureed foods & would prefer chopped foods, says she dislikes corn, rice, and spicy foods. Likes chocolate flavors. Pt appears to be edentulous. Current Diet Order/ Nutrition Support Pureed/standard carb- 60 Patient / S.O Not Indicated Pertinent Medications lipitor, dulcolax, coreg, colace, insulin, milk of magnesia, senna, vitamin B complex w/vitamin C/folic acid Pertinent Labs POC Glucose 369 mg/dL Nutritional Hx/Data Height 1.75 m Height (Calculated Centimeters) 175.3 Current Weight (lbs) 140.614 kg Weight (Calculated Kilograms) 140.6 Weight (Calculated Grams) 653667.6 [place] Body Weight 145 lbs, 65.9 kg % [place] Body Weight 214 Body Mass Index (BMI) 45.8 Weight Status Morbidly Obese GI Symptoms GI Symptoms None Difficult in: Chewing Food Allergies No Current %PO Good (75-100%) Estimated Nutritional Goals BEE in Kcals: Using Current wt Calories/Kcals/Kg 15 Kcals Calculated 2115 Protein: Using Current wt Protein g/k.8-1 Protein Calculated 113-141 Fluid: ml 2115 ml (1 ml/kcal) Nutritional Problem 1. Problem Problem Altered nutrition related laboratory values- poc glucose - related to impaired glycemic control as evidenced by poc glucose 369. Intervention/Recommendation Comments continue current diet rx. patient may benefit from heart healthy (low fat/low sodium/ low cholesterol), consistent carbohydrate diet upon discharge. Expected Outcomes/Goals Expected Outcomes/Goals 1- poc glucose trending down from 369 2- maintain po intakes >75% of all meals Electronically Signed By: Jaye Mcbride, MPH, RDN Clinical Dietitian 12/13/2018 8:41 PM
[2018-12-18] MEDS: Insulin Glargine 100 units/ml 10ml Vial SUBQ SCH (21:42)
[2018-12-18] MEDS: Atorvastatin Calcium 10 MG TAB PO SCH (21:42)
--- NOTE | 2018-12-18 23:59 | Progress Notes ---
DATE: 12/18/2018 SUBJECTIVE: Case was discussed with staff of the patient, reviewed records. The patient continues to be demanding. She asked me to get her 5 tablets of Percocet. She continues to be easily agitated. She continues to have poor insight. She continues to need redirection. No side effects with the medication, no sedation, no nausea, and no extrapyramidal symptoms. We will continue to work with the patient in group therapy, milieu therapy, and adjust the medications as needed. JOB# [id number]
[2018-12-19] MEDS: Ipratropium Neb 0.5 mg/2.5 mL UD HHN SCH ×6 (02:48→22:06)
[2018-12-19] MEDS: APAP/Oxycodone 5/325mg Tab PO SCH ×4 (03:03→21:48)
[2018-12-19] MEDS: INSULIN LISPRO SLIDING SCALE 100 UNITS/ML UNIT SUBQ SCH ×4 (06:45→21:46)
[2018-12-19] MEDS: Haldol Oral Sol.(concentrate) 10 mg/5 mL Udc PO SCH ×2 (09:45→16:44)
[2018-12-19] MEDS: Nystatin Cream 100,000 u/gm Cream 15 gm TP SCH ×2 (09:46→21:48)
[2018-12-19] MEDS: Fluticasone Propionate Nasal 1 SPR SPR NS SCH (09:59)
[2018-12-19] MEDS: NYSTATIN 100000 UNITS/GM POWD TP SCH (09:59)
[2018-12-19] MEDS: Vitamin B Complex w/Vitamin C Tab PO SCH (10:00)
[2018-12-19] MEDS: Levothyroxine 0.075 Mg Tab PO SCH (10:03)
--- NOTE | 2018-12-19 20:10 | Internal Medicine Prog Note ---
Internal Medicine Subjective - Subjective Service Date: 12/19/18 Patient seen and examined:: with staff (SHE IS DOING GOOD) Patient is:: awake, verbal, in bed, talking, confused Per staff patient has:: no adverse event Internal Medicine Objective - Results Recent Labs: Laboratory Last Values POC Glucose 289 MG/DL (70 - 105) H 12/19/18 19:51 Triglycerides 336 mg/dL (<150) H 12/12/18 07:10 Cholesterol 174 mg/dL (<200) 12/12/18 07:10 LDL Cholesterol Direct 98 mg/dL (75-193) 12/12/18 07:10 HDL Cholesterol 30 mg/dL (23-92) 12/12/18 07:10 - Physical Exam Vitals and I&O: Vital Signs Temp 98.0 F 12/19/18 14:00 Pulse 87 12/19/18 19:13 Resp 20 12/19/18 19:13 BP 179/108 12/19/18 16:43 Pulse Ox 97 12/19/18 19:13 Intake & Output 12/19/18 12/19/18 12/20/18 06:59 18:59 06:59 Intake Total 360 1000 Balance 360 1000 Intake: Oral 360 1000 Other: # Voids 1 2 # Bowel Movements 0 2 Active Medications: Current Medications Acetaminophen (Tylenol Extra Strength) 500 mg PO Q4HR PRN PRN Reason: Pain or Fever >101 Stop: 02/09/19 21:38 Last Admin: 12/17/18 22:25 Dose: 500 mg Albuterol Sulfate (Albuterol 2.5mg/3ml Neb Ud) 2.5 mg HHN Q4H PRN PRN Reason: Shortness of Breath or Wheeze Stop: 02/09/19 21:38 Aripiprazole (Abilify) 20 mg PO DAILY [facility]; Protocol Stop: 02/12/19 08:59 Last Admin: 12/19/18 10:02 Dose: Not Given Aspirin (Ecotrin) 81 mg PO DAILY [facility] Stop: 02/10/19 08:59 Last Admin: 12/19/18 10:00 Dose: 81 mg Atorvastatin Calcium (Lipitor) 20 mg PO HS CAL Stop: 02/10/19 20:59 Last Admin: 12/18/18 21:42 Dose: Not Given Bisacodyl (Dulcolax 10 Mg Supp) 10 mg RC Q24H PRN PRN Reason: Constipation Stop: 02/10/19 10:59 Last Admin: 12/14/18 05:50 Dose: 10 mg Brimonidine Tartrate (Alphagan 0.1% Ophth Soln) 1 drop EACH EYE TID [facility] Stop: 02/10/19 08:59 Last Admin: 12/19/18 14:19 Dose: Not Given Carvedilol (Coreg) 6.25 mg PO BID [facility] Stop: 02/10/19 08:59 Last Admin: 12/19/18 16:42 Dose: 6.25 mg Dextrose (D50w) 50 ml IVP PRN PRN PRN Reason: Blood Glucose less than 70 Stop: 02/09/19 21:43 Dextrose (Glutose 40%) 18.75 gm PO PRN PRN PRN Reason: BS below 70 & tolerate po Stop: 02/09/19 21:43 Docusate Sodium (Colace) 100 mg PO BID [facility] Stop: 02/10/19 08:59 Last Admin: 12/19/18 16:43 Dose: 100 mg Duloxetine HCl (Cymbalta) 60 mg PO DAILY [facility]; Protocol Stop: 02/10/19 08:59 Last Admin: 12/19/18 10:02 Dose: Not Given Fluticasone Propionate (Flonase) 1 spr NS DAILY [facility] Stop: 02/10/19 08:59 Last Admin: 12/19/18 09:59 Dose: 1 spr Furosemide (Lasix) 20 mg PO BID [facility] Stop: 02/10/19 08:59 Last Admin: 12/19/18 16:42 Dose: 20 mg Glucagon (Glucagen) 1 mg IM PRN PRN PRN Reason: BS below 70&dextrose ineffecti Stop: 02/09/19 21:43 Haloperidol Decanoate (Haldol Dec) 50 mg IM QMONTH [facility]; Protocol Stop: 02/17/19 06:59 Haloperidol Lactate (Haldol Concentrate 10mg/5ml Susp) 7.5 mg PO BID [facility]; Protocol Stop: 02/17/19 08:59 Last Admin: 12/19/18 16:44 Dose: Not Given Hydralazine HCl (Apresoline) 10 mg PO BID [facility] Stop: 02/10/19 08:59 Last Admin: 12/19/18 16:43 Dose: 10 mg Ibuprofen (Motrin) 600 mg PO Q8H PRN PRN Reason: for breakthrough pain Stop: 02/10/19 08:18 Last Admin: 12/16/18 23:16 Dose: 600 mg Insulin Glargine (Lantus Insulin) 26 units SUBQ HS [facility] Stop: 02/13/19 20:59 Last Admin: 12/18/18 21:42 Dose: 26 units Insulin Human Lispro (Humalog Insulin Sliding Scale) 0 units SUBQ ACHS [facility]; Protocol Stop: 02/09/19 21:59 Last Admin: 12/19/18 17:12 Dose: 10 units Ipratropium [place] (Atrovent Neb 0.5mg/2.5ml) 0.5 mg HHN Q4HRT [facility] Stop: 02/09/19 22:59 Last Admin: 12/19/18 19:12 Dose: 0.5 mg Isosorbide Dinitrate (Isordil) 10 mg PO Q8H [facility] Stop: 02/10/19 08:29 Last Admin: 12/19/18 16:43 Dose: 10 mg Latanoprost (Xalatan 0.005% [facility] Sol) 1 drop EACH EYE [facility] Stop: 02/10/19 20:59 Last Admin: 12/18/18 21:45 Dose: 1 drop Levothyroxine Sodium (Synthroid) 0.075 mg PO DAILY [facility] Stop: 02/10/19 08:59 Last Admin: 12/19/18 10:03 Dose: Not Given Loratadine (Claritin) 10 mg PO DAILY [facility] Stop: 02/10/19 08:59 Last Admin: 12/19/18 10:01 Dose: 10 mg Lorazepam (Ativan) 0.5 mg PO Q4HR PRN; Protocol PRN Reason: Anxiety Stop: 01/11/19 02:34 Last Admin: 12/18/18 23:26 Dose: 0.5 mg Losartan Potassium (Cozaar) 50 mg PO DAILY [facility] Stop: 02/10/19 08:59 Last Admin: 12/19/18 10:22 Dose: Not Given Magnesium Hydroxide (Milk Of Magnesia) 30 ml PO DAILY PRN PRN Reason: Constipation Stop: 02/09/19 21:38 Last Admin: 12/17/18 09:05 Dose: 30 ml Nystatin (Mycostatin Cream) 1 appl TP Q12HR CAL Stop: 02/10/19 11:59 Last Admin: 12/19/18 09:46 Dose: Not Given Nystatin (Nystop) 100 units TP DAILY CAL Stop: 02/11/19 11:05 Last Admin: 12/19/18 09:59 Dose: 100 units Ondansetron HCl (Zofran Odt) 4 mg PO Q6H PRN PRN Reason: nausea and vomiting Oxycodone/Acetaminophen (Percocet 5/325mg Oral Tab) 1 tab PO Q6H CAL Stop: 02/10/19 08:59 Last Admin: 12/19/18 15:27 Dose: 1 tab Rivaroxaban (Xarelto) 15 mg PO QPM CAL Stop: 02/10/19 16:59 Last Admin: 12/19/18 16:43 Dose: 15 mg Senna (Senna) 17.2 mg PO HS [facility] Stop: 02/10/19 20:59 Last Admin: 12/18/18 21:45 Dose: Not Given Sodium Phosphate (Fleet Enema) 135 ml RC DAILY PRN PRN Reason: Constipation Stop: 02/10/19 08:18 Vitamin B Complex/Vit C/Folic Acid (Vitamin B Complex W/Vitamin C) 1 tab PO DAILY CAL Stop: 02/10/19 08:59 Last Admin: 12/19/18 10:00 Dose: 1 tab Zolpidem Tartrate (Ambien) 5 mg PO HS PRN PRN Reason: Insomnia Stop: 02/17/19 14:30 General: alert, demented, obese HEENT: NC/AT, PERRLA, EOMI, anicteric sclerae, throat clear Neck: Supple, No JVD, No thyromegaly, +2 carotid pulse wo bruit, No LAD Lungs: CTAB Cardiovascular: RRR, Normal S1, Normal S2, without murmur Abdomen: soft, non-tender, non-distended Extremities: clear Neurological: no change Internal Medicine Assmt/Plan - Assessment Assessment: 1.HTN 2.DJD. 3.DM. 4.PSYCHOSIS - Plan Plan: CONTINUE ON CURRENT MEDICATION AND DIET. Nutritional Asmnt/Malnutr-PDOC - Dietary Evaluation Malnutrition Findings (Please click <Entered> for more info): Nutritional Asmnt/Malnutrition Start: 12/13/18 20: 14 Text: Status: Active Freq: Protocol: Document 12/13/18 20:14 [email or web address] (Rec: 12/13/18 20:40 [email or web address]) Nutritional Asmnt/Malnutrition Patient General Information Nutritional Screening Moderate Risk Diagnosis psychosis Pertinent Medical Hx/Surgical Hx HTN, DM Subjective Information Pt seen sitting up in bed, eating dinner, says she has a poor appetite and her nose hurts, dislikes the pureed foods & would prefer chopped foods, says she dislikes corn, rice, and spicy foods. Likes chocolate flavors. Pt appears to be edentulous. Current Diet Order/ Nutrition Support Pureed/standard carb- 60 Patient / S.O Not Indicated Pertinent Medications lipitor, dulcolax, coreg, colace, insulin, milk of magnesia, senna, vitamin B complex w/vitamin C/folic acid Pertinent Labs POC Glucose 369 mg/dL Nutritional Hx/Data Height 1.75 m Height (Calculated Centimeters) 175.3 Current Weight (lbs) 140.614 kg Weight (Calculated Kilograms) 140.6 Weight (Calculated Grams) 021035.6 [place] Body Weight 145 lbs, 65.9 kg % [place] Body Weight 214 Body Mass Index (BMI) 45.8 Weight Status Morbidly Obese GI Symptoms GI Symptoms None Difficult in: Chewing Food Allergies No Current %PO Good (75-100%) Estimated Nutritional Goals BEE in Kcals: Using Current wt Calories/Kcals/Kg 15 Kcals Calculated 2115 Protein: Using Current wt Protein g/k.8-1 Protein Calculated 113-141 Fluid: ml 2115 ml (1 ml/kcal) Nutritional Problem 1. Problem Problem Altered nutrition related laboratory values- poc glucose - related to impaired glycemic control as evidenced by poc glucose 369. Intervention/Recommendation Comments continue current diet rx. patient may benefit from heart healthy (low fat/low sodium/ low cholesterol), consistent carbohydrate diet upon discharge. Expected Outcomes/Goals Expected Outcomes/Goals 1- poc glucose trending down from 369 2- maintain po intakes >75% of all meals Electronically Signed By: Jaye Mcbride, MPH, RDN Clinical Dietitian 12/13/2018 8:41 PM
[2018-12-19] MEDS: Insulin Glargine 100 units/ml 10ml Vial SUBQ SCH (21:45)
[2018-12-19] MEDS: Atorvastatin Calcium 10 MG TAB PO SCH (21:49)
[2018-12-20] MEDS: Ipratropium Neb 0.5 mg/2.5 mL UD HHN SCH ×6 (02:07→23:13)
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
[2018-12-20] MEDS: APAP/Oxycodone 5/325mg Tab PO SCH ×4 (03:55→22:00)
[2018-12-20] MEDS: INSULIN LISPRO SLIDING SCALE 100 UNITS/ML UNIT SUBQ SCH ×4 (06:56→22:00)
[2018-12-20] MEDS: Haldol Oral Sol.(concentrate) 10 mg/5 mL Udc PO SCH ×2 (08:34→16:34)
[2018-12-20] MEDS: Vitamin B Complex w/Vitamin C Tab PO SCH (08:35)
[2018-12-20] MEDS: Levothyroxine 0.075 Mg Tab PO SCH (08:37)
[2018-12-20] MEDS: Nystatin Cream 100,000 u/gm Cream 15 gm TP SCH ×2 (08:52→22:00)
[2018-12-20] MEDS: Fluticasone Propionate Nasal 1 SPR SPR NS SCH (08:52)
[2018-12-20] MEDS: NYSTATIN 100000 UNITS/GM POWD TP SCH (08:53)
[2018-12-20] MEDS: Atorvastatin Calcium 10 MG TAB PO SCH (20:58)
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
--- NOTE | 2018-12-20 23:39 | Internal Medicine Prog Note ---
Internal Medicine Subjective - Subjective Service Date: 12/20/18 Patient seen and examined:: without staff (SHE IS DOING GOOD) Patient is:: awake, verbal, in bed, talking, confused Per staff patient has:: no adverse event Internal Medicine Objective - Results Recent Labs: Laboratory Last Values POC Glucose 285 MG/DL (70 - 105) H 12/20/18 21:16 Triglycerides 336 mg/dL (<150) H 12/12/18 07:10 Cholesterol 174 mg/dL (<200) 12/12/18 07:10 LDL Cholesterol Direct 98 mg/dL (75-193) 12/12/18 07:10 HDL Cholesterol 30 mg/dL (23-92) 12/12/18 07:10 - Physical Exam Vitals and I&O: Vital Signs Temp 98.5 F 12/20/18 20:26 Pulse 94 12/20/18 20:26 Resp 18 12/20/18 20:26 BP 136/84 12/20/18 20:26 Pulse Ox 96 12/20/18 20:26 Intake & Output 12/20/18 12/20/18 12/21/18 06:59 18:59 06:59 Intake Total 240 1000 240 Balance 240 1000 240 Intake: Oral 240 1000 240 Other: # Voids 3 3 3 # Bowel Movements 0 0 0 Stool Characteristics Formed Active Medications: Current Medications Acetaminophen (Tylenol Extra Strength) 500 mg PO Q4HR PRN PRN Reason: Pain or Fever >101 Stop: 02/09/19 21:38 Last Admin: 12/17/18 22:25 Dose: 500 mg Albuterol Sulfate (Albuterol 2.5mg/3ml Neb Ud) 2.5 mg HHN Q4H PRN PRN Reason: Shortness of Breath or Wheeze Stop: 02/09/19 21:38 Aripiprazole (Abilify) 20 mg PO DAILY [facility]; Protocol Stop: 02/12/19 08:59 Last Admin: 12/20/18 08:33 Dose: 20 mg Aspirin (Ecotrin) 81 mg PO DAILY CAL Stop: 02/10/19 08:59 Last Admin: 12/20/18 08:35 Dose: 81 mg Atorvastatin Calcium (Lipitor) 20 mg PO HS CAL Stop: 02/10/19 20:59 Last Admin: 12/20/18 20:58 Dose: 20 mg Bisacodyl (Dulcolax 10 Mg Supp) 10 mg RC Q24H PRN PRN Reason: Constipation Stop: 02/10/19 10:59 Last Admin: 12/14/18 05:50 Dose: 10 mg Brimonidine Tartrate (Alphagan 0.1% Ophth Soln) 1 drop EACH EYE TID [facility] Stop: 02/10/19 08:59 Last Admin: 12/20/18 21:00 Dose: 1 drop Carvedilol (Coreg) 6.25 mg PO BID [facility] Stop: 02/10/19 08:59 Last Admin: 12/20/18 16:35 Dose: 6.25 mg Dextrose (D50w) 50 ml IVP PRN PRN PRN Reason: Blood Glucose less than 70 Stop: 02/09/19 21:43 Dextrose (Glutose 40%) 18.75 gm PO PRN PRN PRN Reason: BS below 70 & tolerate po Stop: 02/09/19 21:43 Docusate Sodium (Colace) 100 mg PO BID [facility] Stop: 02/10/19 08:59 Last Admin: 12/20/18 16:35 Dose: 100 mg Duloxetine HCl (Cymbalta) 60 mg PO DAILY [facility]; Protocol Stop: 02/10/19 08:59 Last Admin: 12/20/18 08:35 Dose: Not Given Fluticasone Propionate (Flonase) 1 spr NS DAILY [facility] Stop: 02/10/19 08:59 Last Admin: 12/20/18 08:52 Dose: 1 spr Furosemide (Lasix) 20 mg PO BID [facility] Stop: 02/10/19 08:59 Last Admin: 12/20/18 16:34 Dose: 20 mg Glucagon (Glucagen) 1 mg IM PRN PRN PRN Reason: BS below 70&dextrose ineffecti Stop: 02/09/19 21:43 Haloperidol Decanoate (Haldol Dec) 50 mg IM QMONTH [facility]; Protocol Stop: 02/17/19 06:59 Haloperidol Lactate (Haldol Concentrate 10mg/5ml Susp) 7.5 mg PO BID [facility]; Protocol Stop: 02/17/19 08:59 Last Admin: 12/20/18 16:34 Dose: 7.5 mg Hydralazine HCl (Apresoline) 10 mg PO BID [facility] Stop: 02/10/19 08:59 Last Admin: 12/20/18 16:35 Dose: 10 mg Ibuprofen (Motrin) 600 mg PO Q8H PRN PRN Reason: for breakthrough pain Stop: 02/10/19 08:18 Last Admin: 12/20/18 20:59 Dose: 600 mg Insulin Glargine (Lantus Insulin) 26 units SUBQ HS [facility] Stop: 02/13/19 20:59 Last Admin: 12/19/18 21:45 Dose: 26 units Insulin Human Lispro (Humalog Insulin Sliding Scale) 0 units SUBQ ACHS [facility]; Protocol Stop: 02/09/19 21:59 Last Admin: 12/20/18 16:29 Dose: 6 units Ipratropium [place] (Atrovent Neb 0.5mg/2.5ml) 0.5 mg HHN Q4HRT [facility] Stop: 02/09/19 22:59 Last Admin: 12/20/18 23:13 Dose: Not Given Isosorbide Dinitrate (Isordil) 10 mg PO Q8H [facility] Stop: 02/10/19 08:29 Last Admin: 12/20/18 16:36 Dose: 10 mg Latanoprost (Xalatan 0.005% Ophth Soln) 1 drop EACH EYE [facility] Stop: 02/10/19 20:59 Last Admin: 12/20/18 21:19 Dose: 1 drop Levothyroxine Sodium (Synthroid) 0.075 mg PO DAILY [facility] Stop: 02/10/19 08:59 Last Admin: 12/20/18 08:37 Dose: 0.075 mg Loratadine (Claritin) 10 mg PO DAILY [facility] Stop: 02/10/19 08:59 Last Admin: 12/20/18 08:35 Dose: 10 mg Lorazepam (Ativan) 0.5 mg PO Q4HR PRN; Protocol PRN Reason: Anxiety Stop: 01/11/19 02:34 Last Admin: 12/18/18 23:26 Dose: 0.5 mg Losartan Potassium (Cozaar) 50 mg PO DAILY [facility] Stop: 02/10/19 08:59 Last Admin: 12/20/18 08:40 Dose: 50 mg Magnesium Hydroxide (Milk Of Magnesia) 30 ml PO DAILY PRN PRN Reason: Constipation Stop: 02/09/19 21:38 Last Admin: 12/17/18 09:05 Dose: 30 ml Nystatin (Mycostatin Cream) 1 appl TP Q12HR [facility] Stop: 02/10/19 11:59 Last Admin: 12/20/18 22:00 Dose: 1 appl Nystatin (Nystop) 100 units TP DAILY [facility] Stop: 02/11/19 11:05 Last Admin: 12/20/18 08:53 Dose: 100 units Ondansetron HCl (Zofran Odt) 4 mg PO Q6H PRN PRN Reason: nausea and vomiting Oxycodone/Acetaminophen (Percocet 5/325mg Oral Tab) 1 tab PO Q6H CAL Stop: 02/10/19 08:59 Last Admin: 12/20/18 22:00 Dose: 1 tab Rivaroxaban (Xarelto) 15 mg PO QPM CAL Stop: 02/10/19 16:59 Last Admin: 12/20/18 16:35 Dose: 15 mg Senna (Senna) 17.2 mg PO HS CAL Stop: 02/10/19 20:59 Last Admin: 12/20/18 20:59 Dose: 17.2 mg Sodium Phosphate (Fleet Enema) 135 ml RC DAILY PRN PRN Reason: Constipation Stop: 02/10/19 08:18 Vitamin B Complex/Vit C/Folic Acid (Vitamin B Complex W/Vitamin C) 1 tab PO DAILY CAL Stop: 02/10/19 08:59 Last Admin: 12/20/18 08:35 Dose: 1 tab Zolpidem Tartrate (Ambien) 5 mg PO HS PRN PRN Reason: Insomnia Stop: 02/17/19 14:30 General: alert, demented, obese HEENT: NC/AT, PERRLA, EOMI, anicteric sclerae, throat clear Neck: Supple, No JVD, No thyromegaly, +2 carotid pulse wo bruit, No LAD Lungs: CTAB Cardiovascular: RRR, Normal S1, Normal S2, without murmur Abdomen: soft, non-tender, non-distended Extremities: clear Neurological: no change Internal Medicine Assmt/Plan - Assessment Assessment: 1.HTN 2.DJD. 3.DM. 4.PSYCHOSIS - Plan Plan: CONTINUE ON CURRENT MEDICATION AND DIET. Nutritional Asmnt/Malnutr-PDOC - Dietary Evaluation Malnutrition Findings (Please click <Entered> for more info): Nutritional Asmnt/Malnutrition Start: 12/13/18 20: 14 Text: Status: Active Freq: Protocol: Document 12/13/18 20:14 [email or web address] (Rec: 12/13/18 20:40 [email or web address]) Nutritional Asmnt/Malnutrition Patient General Information Nutritional Screening Moderate Risk Diagnosis psychosis Pertinent Medical Hx/Surgical Hx HTN, DM Subjective Information Pt seen sitting up in bed, eating dinner, says she has a poor appetite and her nose hurts, dislikes the pureed foods & would prefer chopped foods, says she dislikes corn, rice, and spicy foods. Likes chocolate flavors. Pt appears to be edentulous. Current Diet Order/ Nutrition Support Pureed/standard carb- 60 Patient / S.O Not Indicated Pertinent Medications lipitor, dulcolax, coreg, colace, insulin, milk of magnesia, senna, vitamin B complex w/vitamin C/folic acid Pertinent Labs POC Glucose 369 mg/dL Nutritional Hx/Data Height 1.75 m Height (Calculated Centimeters) 175.3 Current Weight (lbs) 140.614 kg Weight (Calculated Kilograms) 140.6 Weight (Calculated Grams) 820452.6 [place] Body Weight 145 lbs, 65.9 kg % [place] Body Weight 214 Body Mass Index (BMI) 45.8 Weight Status Morbidly Obese GI Symptoms GI Symptoms None Difficult in: Chewing Food Allergies No Current %PO Good (75-100%) Estimated Nutritional Goals BEE in Kcals: Using Current wt Calories/Kcals/Kg 15 Kcals Calculated 2115 Protein: Using Current wt Protein g/k.8-1 Protein Calculated 113-141 Fluid: ml 2115 ml (1 ml/kcal) Nutritional Problem 1. Problem Problem Altered nutrition related laboratory values- poc glucose - related to impaired glycemic control as evidenced by poc glucose 369. Intervention/Recommendation Comments continue current diet rx. patient may benefit from heart healthy (low fat/low sodium/ low cholesterol), consistent carbohydrate diet upon discharge. Expected Outcomes/Goals Expected Outcomes/Goals 1- poc glucose trending down from 369 2- maintain po intakes >75% of all meals Electronically Signed By: Jaye Mcbride, MPH, RDN Clinical Dietitian 12/13/2018 8:41 PM
[2018-12-20] MEDS: Insulin Glargine 100 units/ml 10ml Vial SUBQ SCH (23:48)
[2018-12-21] MEDS: APAP/Oxycodone 5/325mg Tab PO SCH ×4 (03:00→21:46)
[2018-12-21] MEDS: Ipratropium Neb 0.5 mg/2.5 mL UD HHN SCH ×6 (03:56→22:01)
[2018-12-21] MEDS: INSULIN LISPRO SLIDING SCALE 100 UNITS/ML UNIT SUBQ SCH ×5 (06:44→22:00)
[2018-12-21] MEDS: Haldol Oral Sol.(concentrate) 10 mg/5 mL Udc PO SCH ×2 (08:00→17:29)
[2018-12-21] MEDS: Nystatin Cream 100,000 u/gm Cream 15 gm TP SCH ×2 (11:45→22:00)
[2018-12-21] MEDS: Levothyroxine 0.075 Mg Tab PO SCH (11:49)
[2018-12-21] MEDS: Fluticasone Propionate Nasal 1 SPR SPR NS SCH (14:05)
[2018-12-21] MEDS: Vitamin B Complex w/Vitamin C Tab PO SCH (14:07)
[2018-12-21] MEDS: NYSTATIN 100000 UNITS/GM POWD TP SCH (17:02)
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
--- NOTE | 2018-12-21 20:57 | Internal Medicine Prog Note ---
Internal Medicine Subjective - Subjective Service Date: 12/21/18 Patient seen and examined:: with staff (SHE FEELS BETTER) Patient is:: awake, verbal, in bed, talking, confused Per staff patient has:: no adverse event Internal Medicine Objective - Results Recent Labs: Laboratory Last Values POC Glucose 204 MG/DL (70 - 105) H 12/21/18 11:38 Triglycerides 336 mg/dL (<150) H 12/12/18 07:10 Cholesterol 174 mg/dL (<200) 12/12/18 07:10 LDL Cholesterol Direct 98 mg/dL (75-193) 12/12/18 07:10 HDL Cholesterol 30 mg/dL (23-92) 12/12/18 07:10 - Physical Exam Vitals and I&O: Vital Signs Temp 96.7 F 12/21/18 20:00 Pulse 95 12/21/18 20:00 Resp 19 12/21/18 20:00 BP 156/96 12/21/18 20:00 Pulse Ox 95 12/21/18 20:00 Intake & Output 12/21/18 12/21/18 12/22/18 06:59 18:59 06:59 Intake Total 480 950 Balance 480 950 Intake: Oral 480 950 Other: # Voids 2 3 # Bowel Movements 1 1 Active Medications: Current Medications Acetaminophen (Tylenol Extra Strength) 500 mg PO Q4HR PRN PRN Reason: Pain or Fever >101 Stop: 02/09/19 21:38 Last Admin: 12/17/18 22:25 Dose: 500 mg Albuterol Sulfate (Albuterol 2.5mg/3ml Neb Ud) 2.5 mg HHN Q4H PRN PRN Reason: Shortness of Breath or Wheeze Stop: 02/09/19 21:38 Aripiprazole (Abilify) 20 mg PO DAILY [facility]; Protocol Stop: 02/12/19 08:59 Last Admin: 12/21/18 11:47 Dose: Not Given Aspirin (Ecotrin) 81 mg PO DAILY [facility] Stop: 02/10/19 08:59 Last Admin: 12/21/18 11:47 Dose: Not Given Atorvastatin Calcium (Lipitor) 20 mg PO HS CAL Stop: 02/10/19 20:59 Last Admin: 12/20/18 20:58 Dose: 20 mg Bisacodyl (Dulcolax 10 Mg Supp) 10 mg RC Q24H PRN PRN Reason: Constipation Stop: 02/10/19 10:59 Last Admin: 12/14/18 05:50 Dose: 10 mg Brimonidine Tartrate (Alphagan 0.1% Ophth Soln) 1 drop EACH EYE TID [facility] Stop: 02/10/19 08:59 Last Admin: 12/21/18 14:05 Dose: 1 drop Carvedilol (Coreg) 6.25 mg PO BID [facility] Stop: 02/10/19 08:59 Last Admin: 12/21/18 17:28 Dose: Not Given Dextrose (D50w) 50 ml IVP PRN PRN PRN Reason: Blood Glucose less than 70 Stop: 02/09/19 21:43 Dextrose (Glutose 40%) 18.75 gm PO PRN PRN PRN Reason: BS below 70 & tolerate po Stop: 02/09/19 21:43 Docusate Sodium (Colace) 100 mg PO BID [facility] Stop: 02/10/19 08:59 Last Admin: 12/21/18 17:01 Dose: 100 mg Duloxetine HCl (Cymbalta) 60 mg PO DAILY [facility]; Protocol Stop: 02/10/19 08:59 Last Admin: 12/21/18 11:48 Dose: Not Given Fluticasone Propionate (Flonase) 1 spr NS DAILY [facility] Stop: 02/10/19 08:59 Last Admin: 12/21/18 14:05 Dose: 1 spr Furosemide (Lasix) 20 mg PO BID [facility] Stop: 02/10/19 08:59 Last Admin: 12/21/18 16:54 Dose: 20 mg Glucagon (Glucagen) 1 mg IM PRN PRN PRN Reason: BS below 70&dextrose ineffecti Stop: 02/09/19 21:43 Haloperidol Decanoate (Haldol Dec) 50 mg IM QMONTH [facility]; Protocol Stop: 02/19/19 06:29 Haloperidol Lactate (Haldol Concentrate 10mg/5ml Susp) 7.5 mg PO BID [facility]; Protocol Stop: 02/17/19 08:59 Last Admin: 12/21/18 17:29 Dose: Not Given Hydralazine HCl (Apresoline) 10 mg PO BID [facility] Stop: 02/10/19 08:59 Last Admin: 12/21/18 17:01 Dose: 10 mg Ibuprofen (Motrin) 600 mg PO Q8H PRN PRN Reason: for breakthrough pain Stop: 02/10/19 08:18 Last Admin: 12/20/18 20:59 Dose: 600 mg Insulin Glargine (Lantus Insulin) 26 units SUBQ HS [facility] Stop: 02/13/19 20:59 Last Admin: 12/20/18 23:48 Dose: 26 units Insulin Human Lispro (Humalog Insulin Sliding Scale) 0 units SUBQ ACHS [facility]; Protocol Stop: 02/09/19 21:59 Last Admin: 12/21/18 17:02 Dose: 6 units Ipratropium [place] (Atrovent Neb 0.5mg/2.5ml) 0.5 mg HHN Q4HRT [facility] Stop: 02/09/19 22:59 Last Admin: 12/21/18 18:29 Dose: 0.5 mg Isosorbide Dinitrate (Isordil) 10 mg PO Q8H [facility] Stop: 02/10/19 08:29 Last Admin: 12/21/18 17:02 Dose: 10 mg Latanoprost (Xalatan 0.005% Oph Soln) 1 drop EACH EYE [facility] Stop: 02/10/19 20:59 Last Admin: 12/20/18 21:19 Dose: 1 drop Levothyroxine Sodium (Synthroid) 0.075 mg PO DAILY [facility] Stop: 02/10/19 08:59 Last Admin: 12/21/18 11:49 Dose: Not Given Loratadine (Claritin) 10 mg PO DAILY [facility] Stop: 02/10/19 08:59 Last Admin: 12/21/18 11:50 Dose: Not Given Lorazepam (Ativan) 0.5 mg PO Q4HR PRN; Protocol PRN Reason: Anxiety Stop: 01/11/19 02:34 Last Admin: 12/21/18 00:04 Dose: 0.5 mg Losartan Potassium (Cozaar) 50 mg PO DAILY [facility] Stop: 02/10/19 08:59 Last Admin: 12/21/18 17:28 Dose: Not Given Magnesium Hydroxide (Milk Of Magnesia) 30 ml PO DAILY PRN PRN Reason: Constipation Stop: 02/09/19 21:38 Last Admin: 12/17/18 09:05 Dose: 30 ml Nitroglycerin (Nitrostat) 0.4 mg SL Q5MIN PRN PRN Reason: CHEST PAIN Stop: 02/19/19 15:47 Last Admin: 12/21/18 14:55 Dose: 0.4 mg Nystatin (Mycostatin Cream) 1 appl TP Q12HR [facility] Stop: 02/10/19 11:59 Last Admin: 12/21/18 11:45 Dose: Not Given Nystatin (Nystop) 100 units TP DAILY [facility] Stop: 02/11/19 11:05 Last Admin: 12/21/18 17:02 Dose: 100 units Ondansetron HCl (Zofran Odt) 4 mg PO Q6H PRN PRN Reason: nausea and vomiting Oxycodone/Acetaminophen (Percocet 5/325mg Oral Tab) 1 tab PO Q6H [facility] Stop: 02/10/19 08:59 Last Admin: 12/21/18 14:08 Dose: 1 tab Rivaroxaban (Xarelto) 15 mg PO QPM [facility] Stop: 02/10/19 16:59 Last Admin: 12/21/18 17:01 Dose: 15 mg Senna (Senna) 17.2 mg PO HS [facility] Stop: 02/10/19 20:59 Last Admin: 12/20/18 20:59 Dose: 17.2 mg Sodium Phosphate (Fleet Enema) 135 ml RC DAILY PRN PRN Reason: Constipation Stop: 02/10/19 08:18 Vitamin B Complex/Vit C/Folic Acid (Vitamin B Complex W/Vitamin C) 1 tab PO DAILY [facility] Stop: 02/10/19 08:59 Last Admin: 12/21/18 14:07 Dose: 1 tab Zolpidem Tartrate (Ambien) 5 mg PO HS PRN PRN Reason: Insomnia Stop: 02/17/19 14:30 General: alert, demented, obese HEENT: NC/AT, PERRLA, EOMI, anicteric sclerae, throat clear Neck: Supple, No JVD, No thyromegaly, +2 carotid pulse wo bruit, No LAD Lungs: CTAB Cardiovascular: RRR, Normal S1, Normal S2, without murmur Abdomen: soft, non-tender, non-distended Extremities: clear Neurological: no change Internal Medicine Assmt/Plan - Assessment Assessment: 1.HTN 2.DJD. 3.DM. 4.PSYCHOSIS - Plan Plan: CONTINUE ON CURRENT MEDICATION AND DIET. Nutritional Asmnt/Malnutr-PDOC - Dietary Evaluation Malnutrition Findings (Please click <Entered> for more info): Nutritional Asmnt/Malnutrition Start: 12/13/18 20: 14 Text: Status: Active Freq: Protocol: Document 12/13/18 20:14 [email or web address] (Rec: 12/13/18 20:40 [email or web address]) Nutritional Asmnt/Malnutrition Patient General Information Nutritional Screening Moderate Risk Diagnosis psychosis Pertinent Medical Hx/Surgical Hx HTN, DM Subjective Information Pt seen sitting up in bed, eating dinner, says she has a poor appetite and her nose hurts, dislikes the pureed foods & would prefer chopped foods, says she dislikes corn, rice, and spicy foods. Likes chocolate flavors. Pt appears to be edentulous. Current Diet Order/ Nutrition Support Pureed/standard carb- 60 Patient / S.O Not Indicated Pertinent Medications lipitor, dulcolax, coreg, colace, insulin, milk of magnesia, senna, vitamin B complex w/vitamin C/folic acid Pertinent Labs POC Glucose 369 mg/dL Nutritional Hx/Data Height 1.75 m Height (Calculated Centimeters) 175.3 Current Weight (lbs) 140.614 kg Weight (Calculated Kilograms) 140.6 Weight (Calculated Grams) 758211.6 [place] Body Weight 145 lbs, 65.9 kg % [place] Body Weight 214 Body Mass Index (BMI) 45.8 Weight Status Morbidly Obese GI Symptoms GI Symptoms None Difficult in: Chewing Food Allergies No Current %PO Good (75-100%) Estimated Nutritional Goals BEE in Kcals: Using Current wt Calories/Kcals/Kg 15 Kcals Calculated 5 Protein: Using Current wt Protein g/k.8-1 Protein Calculated 113-141 Fluid: ml 2115 ml (1 ml/kcal) Nutritional Problem 1. Problem Problem Altered nutrition related laboratory values- poc glucose - related to impaired glycemic control as evidenced by poc glucose 369. Intervention/Recommendation Comments continue current diet rx. patient may benefit from heart healthy (low fat/low sodium/ low cholesterol), consistent carbohydrate diet upon discharge. Expected Outcomes/Goals Expected Outcomes/Goals 1- poc glucose trending down from 369 2- maintain po intakes >75% of all meals Electronically Signed By: Jaye Mcbride, MPH, RDN Clinical Dietitian 12/13/2018 8:41 PM
[2018-12-21] MEDS: Atorvastatin Calcium 10 MG TAB PO SCH (21:46)
[2018-12-21] MEDS: Insulin Glargine 100 units/ml 10ml Vial SUBQ SCH (22:00)
[2018-12-22] MEDS: APAP/Oxycodone 5/325mg Tab PO SCH ×4 (02:19→21:44)
[2018-12-22] MEDS: Ipratropium Neb 0.5 mg/2.5 mL UD HHN SCH ×6 (03:27→22:49)
[2018-12-22] MEDS: INSULIN LISPRO SLIDING SCALE 100 UNITS/ML UNIT SUBQ SCH ×5 (06:33→22:00)
[2018-12-22] MEDS: Levothyroxine 0.075 Mg Tab PO SCH ×2 (09:00→18:19)
[2018-12-22] MEDS: Vitamin B Complex w/Vitamin C Tab PO SCH (09:00)
[2018-12-22] MEDS: Fluticasone Propionate Nasal 1 SPR SPR NS SCH (09:00)
[2018-12-22] MEDS: Haldol Oral Sol.(concentrate) 10 mg/5 mL Udc PO SCH ×2 (09:00→18:19)
[2018-12-22] MEDS: Nystatin Cream 100,000 u/gm Cream 15 gm TP SCH ×4 (09:00→21:00)
[2018-12-22] MEDS: NYSTATIN 100000 UNITS/GM POWD TP SCH (11:54)
--- NOTE | 2018-12-22 20:59 | Internal Medicine Prog Note ---
Internal Medicine Subjective - Subjective Service Date: 12/22/18 Patient seen and examined:: without staff (SHE FEELS BETTER) Patient is:: awake, verbal, in bed, talking, confused Per staff patient has:: no adverse event Internal Medicine Objective - Results Recent Labs: Laboratory Last Values POC Glucose 204 MG/DL (70 - 105) H 12/21/18 11:38 Triglycerides 336 mg/dL (<150) H 12/12/18 07:10 Cholesterol 174 mg/dL (<200) 12/12/18 07:10 LDL Cholesterol Direct 98 mg/dL (75-193) 12/12/18 07:10 HDL Cholesterol 30 mg/dL (23-92) 12/12/18 07:10 - Physical Exam Vitals and I&O: Vital Signs Temp 97.6 F 12/22/18 20:05 Pulse 85 12/22/18 20:05 Resp 20 12/22/18 20:05 BP 141/94 12/22/18 20:05 Pulse Ox 97 12/22/18 20:05 Intake & Output 12/22/18 12/22/18 12/23/18 06:59 18:59 06:59 Intake Total 1500 1200 240 Balance 1500 1200 240 Intake: Oral 1500 1200 240 Other: # Voids 3 4 2 # Bowel Movements 1 0 Active Medications: Current Medications Acetaminophen (Tylenol Extra Strength) 500 mg PO Q4HR PRN PRN Reason: Pain or Fever >101 Stop: 02/09/19 21:38 Last Admin: 12/17/18 22:25 Dose: 500 mg Albuterol Sulfate (Albuterol 2.5mg/3ml Neb Ud) 2.5 mg HHN Q4H PRN PRN Reason: Shortness of Breath or Wheeze Stop: 02/09/19 21:38 Aripiprazole (Abilify) 20 mg PO DAILY [facility]; Protocol Stop: 02/12/19 08:59 Last Admin: 12/22/18 09:00 Dose: Not Given Aspirin (Ecotrin) 81 mg PO DAILY [facility] Stop: 02/10/19 08:59 Last Admin: 12/22/18 10:43 Dose: 81 mg Atorvastatin Calcium (Lipitor) 20 mg PO HS [facility] Stop: 02/10/19 20:59 Last Admin: 12/21/18 21:46 Dose: 20 mg Bisacodyl (Dulcolax 10 Mg Supp) 10 mg RC Q24H PRN PRN Reason: Constipation Stop: 02/10/19 10:59 Last Admin: 12/14/18 05:50 Dose: 10 mg Brimonidine Tartrate (Alphagan 0.1% Ophth Soln) 1 drop EACH EYE TID [facility] Stop: 02/10/19 08:59 Last Admin: 12/22/18 14:00 Dose: 1 drop Carvedilol (Coreg) 6.25 mg PO BID [facility] Stop: 02/10/19 08:59 Last Admin: 12/22/18 18:16 Dose: Not Given Dextrose (D50w) 50 ml IVP PRN PRN PRN Reason: Blood Glucose less than 70 Stop: 02/09/19 21:43 Dextrose (Glutose 40%) 18.75 gm PO PRN PRN PRN Reason: BS below 70 & tolerate po Stop: 02/09/19 21:43 Docusate Sodium (Colace) 100 mg PO BID [facility] Stop: 02/10/19 08:59 Last Admin: 12/22/18 18:44 Dose: 100 mg Duloxetine HCl (Cymbalta) 60 mg PO DAILY [facility]; Protocol Stop: 02/10/19 08:59 Last Admin: 12/22/18 09:00 Dose: Not Given Fluticasone Propionate (Flonase) 1 spr NS DAILY [facility] Stop: 02/10/19 08:59 Last Admin: 12/22/18 09:00 Dose: 1 spr Furosemide (Lasix) 20 mg PO BID [facility] Stop: 02/10/19 08:59 Last Admin: 12/22/18 18:15 Dose: Not Given Glucagon (Glucagen) 1 mg IM PRN PRN PRN Reason: BS below 70&dextrose ineffecti Stop: 02/09/19 21:43 Haloperidol Decanoate (Haldol Dec) 50 mg IM QMONTH [facility]; Protocol Stop: 02/19/19 06:29 Haloperidol Lactate (Haldol Concentrate 10mg/5ml Susp) 7.5 mg PO BID [facility]; Protocol Stop: 02/17/19 08:59 Last Admin: 12/22/18 18:19 Dose: Not Given Hydralazine HCl (Apresoline) 10 mg PO BID [facility] Stop: 02/10/19 08:59 Last Admin: 12/22/18 18:13 Dose: Not Given Ibuprofen (Motrin) 600 mg PO Q8H PRN PRN Reason: for breakthrough pain Stop: 02/10/19 08:18 Last Admin: 12/22/18 00:16 Dose: 600 mg Insulin Glargine (Lantus Insulin) 26 units SUBQ HS [facility] Stop: 02/13/19 20:59 Last Admin: 12/21/18 22:00 Dose: 26 units Insulin Human Lispro (Humalog Insulin Sliding Scale) 0 units SUBQ ACHS [facility]; Protocol Stop: 02/09/19 21:59 Last Admin: 12/22/18 16:30 Dose: Not Given Ipratropium [place] (Atrovent Neb 0.5mg/2.5ml) 0.5 mg HHN Q4HRT [facility] Stop: 02/09/19 22:59 Last Admin: 12/22/18 18:33 Dose: 0.5 mg Isosorbide Dinitrate (Isordil) 10 mg PO Q8H [facility] Stop: 02/10/19 08:29 Last Admin: 12/22/18 18:17 Dose: Not Given Latanoprost (Xalatan 0.005% [facility]) 1 drop EACH EYE [facility] Stop: 02/10/19 20:59 Last Admin: 12/21/18 21:30 Dose: 1 drop Levothyroxine Sodium (Synthroid) 0.075 mg PO DAILY [facility] Stop: 02/10/19 08:59 Last Admin: 12/22/18 09:00 Dose: Not Given Loratadine (Claritin) 10 mg PO DAILY [facility] Stop: 02/10/19 08:59 Last Admin: 12/22/18 09:00 Dose: Not Given Lorazepam (Ativan) 0.5 mg PO Q4HR PRN; Protocol PRN Reason: Anxiety Stop: 01/11/19 02:34 Last Admin: 12/21/18 00:04 Dose: 0.5 mg Losartan Potassium (Cozaar) 50 mg PO DAILY [facility] Stop: 02/10/19 08:59 Last Admin: 12/22/18 10:47 Dose: 50 mg Magnesium Hydroxide (Milk Of Magnesia) 30 ml PO DAILY PRN PRN Reason: Constipation Stop: 02/09/19 21:38 Last Admin: 12/17/18 09:05 Dose: 30 ml Nitroglycerin (Nitrostat) 0.4 mg SL Q5MIN PRN PRN Reason: CHEST PAIN Stop: 02/19/19 15:47 Last Admin: 12/22/18 18:08 Dose: 0.4 mg Nystatin (Mycostatin Cream) 1 appl TP Q12HR [facility] Stop: 02/10/19 11:59 Last Admin: 12/22/18 11:54 Dose: 1 appl Nystatin (Nystop) 100 units TP DAILY [facility] Stop: 02/11/19 11:05 Last Admin: 12/22/18 11:54 Dose: 100 units Ondansetron HCl (Zofran Odt) 4 mg PO Q6H PRN PRN Reason: nausea and vomiting Oxycodone/Acetaminophen (Percocet 5/325mg Oral Tab) 1 tab PO Q6H [facility] Stop: 02/10/19 08:59 Last Admin: 12/22/18 15:00 Dose: 1 tab Rivaroxaban (Xarelto) 15 mg PO QPM [facility] Stop: 02/10/19 16:59 Last Admin: 12/22/18 18:11 Dose: Not Given Senna (Senna) 17.2 mg PO HS [facility] Stop: 02/10/19 20:59 Last Admin: 12/21/18 21:46 Dose: Not Given Sodium Phosphate (Fleet Enema) 135 ml RC DAILY PRN PRN Reason: Constipation Stop: 02/10/19 08:18 Vitamin B Complex/Vit C/Folic Acid (Vitamin B Complex W/Vitamin C) 1 tab PO DAILY [facility] Stop: 02/10/19 08:59 Last Admin: 12/22/18 09:00 Dose: Not Given Zolpidem Tartrate (Ambien) 5 mg PO HS PRN PRN Reason: Insomnia Stop: 02/17/19 14:30 General: alert, demented, obese HEENT: NC/AT, PERRLA, EOMI, anicteric sclerae, throat clear Neck: Supple, No JVD, No thyromegaly, +2 carotid pulse wo bruit, No LAD Lungs: CTAB Cardiovascular: RRR, Normal S1, Normal S2, without murmur Abdomen: soft, non-tender, non-distended Extremities: clear Neurological: no change Internal Medicine Assmt/Plan - Assessment Assessment: 1.HTN 2.DJD. 3.DM. 4.PSYCHOSIS - Plan Plan: CONTINUE ON CURRENT MEDICATION AND DIET. Nutritional Asmnt/Malnutr-PDOC - Dietary Evaluation Malnutrition Findings (Please click <Entered> for more info): Nutritional Asmnt/Malnutrition Start: 12/13/18 20: 14 Text: Status: Active Freq: Protocol: Document 12/13/18 20:14 [email or web address] (Rec: 12/13/18 20:40 [email or web address]) Nutritional Asmnt/Malnutrition Patient General Information Nutritional Screening Moderate Risk Diagnosis psychosis Pertinent Medical Hx/Surgical Hx HTN, DM Subjective Information Pt seen sitting up in bed, eating dinner, says she has a poor appetite and her nose hurts, dislikes the pureed foods & would prefer chopped foods, says she dislikes corn, rice, and spicy foods. Likes chocolate flavors. Pt appears to be edentulous. Current Diet Order/ Nutrition Support Pureed/standard carb- 60 Patient / S.O Not Indicated Pertinent Medications lipitor, dulcolax, coreg, colace, insulin, milk of magnesia, senna, vitamin B complex w/vitamin C/folic acid Pertinent Labs POC Glucose 369 mg/dL Nutritional Hx/Data Height 1.75 m Height (Calculated Centimeters) 175.3 Current Weight (lbs) 140.614 kg Weight (Calculated Kilograms) 140.6 Weight (Calculated Grams) 514486.6 [place] Body Weight 145 lbs, 65.9 kg % [place] Body Weight 214 Body Mass Index (BMI) 45.8 Weight Status Morbidly Obese GI Symptoms GI Symptoms None Difficult in: Chewing Food Allergies No Current %PO Good (75-100%) Estimated Nutritional Goals BEE in Kcals: Using Current wt Calories/Kcals/Kg 15 Kcals Calculated 2114 Protein: Using Current wt Protein g/k.8-1 Protein Calculated 113-141 Fluid: ml 2115 ml (1 ml/kcal) Nutritional Problem 1. Problem Problem Altered nutrition related laboratory values- poc glucose - related to impaired glycemic control as evidenced by poc glucose 369. Intervention/Recommendation Comments continue current diet rx. patient may benefit from heart healthy (low fat/low sodium/ low cholesterol), consistent carbohydrate diet upon discharge. Expected Outcomes/Goals Expected Outcomes/Goals 1- poc glucose trending down from 369 2- maintain po intakes >75% of all meals Electronically Signed By: Jaye Reed, MPH, RDN Clinical Dietitian 12/13/2018 8:41 PM
[2018-12-22] MEDS: Atorvastatin Calcium 10 MG TAB PO SCH (21:44)
[2018-12-22] MEDS: Insulin Glargine 100 units/ml 10ml Vial SUBQ SCH (22:00)
[2018-12-23] MEDS: Ipratropium Neb 0.5 mg/2.5 mL UD HHN SCH ×6 (02:39→22:22)
[2018-12-23] MEDS: APAP/Oxycodone 5/325mg Tab PO SCH ×4 (03:00→21:59)
[2018-12-23] MEDS: INSULIN LISPRO SLIDING SCALE 100 UNITS/ML UNIT SUBQ SCH ×4 (06:46→22:00)
[2018-12-23] MEDS: Vitamin B Complex w/Vitamin C Tab PO SCH (09:00)
[2018-12-23] MEDS: NYSTATIN 100000 UNITS/GM POWD TP SCH (09:00)
[2018-12-23] MEDS: Levothyroxine 0.075 Mg Tab PO SCH (09:00)
--- NOTE | 2018-12-23 12:01 | Progress Notes ---
DATE: SUBJECTIVE: Chart was reviewed and the patient interviewed. Also discussed the patient's condition with the staff and reviewed records and labs. The patient is still delusional and ____ has somatic complaint and still demanding. On the other hand, she has been taking her medications, more compliant with taking her medications. Also easier to redirect her. ASSESSMENT: The patient is still delusional and psychotic. TREATMENT PLAN: We will continue monitoring her behavior and her condition closely. Also, continue adjusting psychotropic medications and working on her psychosis ____. JOB# [id number]
[2018-12-23] MEDS: Nystatin Cream 100,000 u/gm Cream 15 gm TP SCH ×2 (12:38→22:00)
[2018-12-23] MEDS: Magnesium Hydroxide (MOM) 30 mL UDC PO PRN (12:42)
[2018-12-23] MEDS: Fluticasone Propionate Nasal 1 SPR SPR NS SCH (12:44)
[2018-12-23] MEDS: Haldol Oral Sol.(concentrate) 10 mg/5 mL Udc PO SCH (12:46)
[2018-12-23] MEDS: Albuterol Nebulizer 2.5mg/3mL HHN PRN (16:35)
--- NOTE | 2018-12-23 21:41 | Internal Medicine Prog Note ---
Internal Medicine Subjective - Subjective Service Date: 12/23/18 Patient seen and examined:: without staff (SHE IS DOING WELL) Patient is:: awake, verbal, in bed, talking, confused Per staff patient has:: no adverse event Internal Medicine Objective - Results Recent Labs: Laboratory Last Values POC Glucose 204 MG/DL (70 - 105) H 12/21/18 11:38 Triglycerides 336 mg/dL (<150) H 12/12/18 07:10 Cholesterol 174 mg/dL (<200) 12/12/18 07:10 LDL Cholesterol Direct 98 mg/dL (75-193) 12/12/18 07:10 HDL Cholesterol 30 mg/dL (23-92) 12/12/18 07:10 - Physical Exam Vitals and I&O: Vital Signs Temp 98.3 F 12/23/18 20:10 Pulse 79 12/23/18 20:10 Resp 20 12/23/18 20:10 BP 154/78 12/23/18 20:10 Pulse Ox 93 12/23/18 20:10 Intake & Output 12/23/18 12/23/18 12/24/18 06:59 18:59 06:59 Intake Total 240 2800 240 Balance 240 2800 240 Intake: Oral 240 2800 240 Other: # Voids 2 6 2 # Bowel Movements 1 Active Medications: Current Medications Acetaminophen (Tylenol Extra Strength) 500 mg PO Q4HR PRN PRN Reason: Pain or Fever >101 Stop: 02/09/19 21:38 Last Admin: 12/17/18 22:25 Dose: 500 mg Albuterol Sulfate (Albuterol 2.5mg/3ml Neb Ud) 2.5 mg HHN Q4H PRN PRN Reason: Shortness of Breath or Wheeze Stop: 02/09/19 21:38 Last Admin: 12/23/18 16:35 Dose: 2.5 mg Aripiprazole (Abilify) 20 mg PO DAILY [facility]; Protocol Stop: 02/12/19 08:59 Last Admin: 12/23/18 09:00 Dose: Not Given Aspirin (Ecotrin) 81 mg PO DAILY [facility] Stop: 02/10/19 08:59 Last Admin: 12/23/18 09:00 Dose: 81 mg Atorvastatin Calcium (Lipitor) 20 mg PO HS [facility] Stop: 02/10/19 20:59 Last Admin: 12/22/18 21:44 Dose: 20 mg Bisacodyl (Dulcolax 10 Mg Supp) 10 mg RC Q24H PRN PRN Reason: Constipation Stop: 02/10/19 10:59 Last Admin: 12/14/18 05:50 Dose: 10 mg Brimonidine Tartrate (Alphagan 0.1% Ophth Soln) 1 drop EACH EYE TID CAL Stop: 02/10/19 08:59 Last Admin: 12/23/18 09:00 Dose: 1 drop Carvedilol (Coreg) 6.25 mg PO BID [facility] Stop: 02/10/19 08:59 Last Admin: 12/23/18 17:22 Dose: 6.25 mg Dextrose (D50w) 50 ml IVP PRN PRN PRN Reason: Blood Glucose less than 70 Stop: 02/09/19 21:43 Dextrose (Glutose 40%) 18.75 gm PO PRN PRN PRN Reason: BS below 70 & tolerate po Stop: 02/09/19 21:43 Docusate Sodium (Colace) 100 mg PO BID [facility] Stop: 02/10/19 08:59 Last Admin: 12/23/18 17:22 Dose: 100 mg Duloxetine HCl (Cymbalta) 60 mg PO DAILY [facility]; Protocol Stop: 02/10/19 08:59 Last Admin: 12/23/18 12:46 Dose: Not Given Fluticasone Propionate (Flonase) 1 spr NS DAILY CAL Stop: 02/10/19 08:59 Last Admin: 12/23/18 12:44 Dose: 1 spr Furosemide (Lasix) 20 mg PO BID [facility] Stop: 02/10/19 08:59 Last Admin: 12/23/18 17:21 Dose: 20 mg Glucagon (Glucagen) 1 mg IM PRN PRN PRN Reason: BS below 70&dextrose ineffecti Stop: 02/09/19 21:43 Haloperidol Decanoate (Haldol Dec) 50 mg IM QMONTH [facility]; Protocol Stop: 02/19/19 06:29 Haloperidol Lactate (Haldol Concentrate 10mg/5ml Susp) 7.5 mg PO BID [facility]; Protocol Stop: 02/17/19 08:59 Last Admin: 12/23/18 12:46 Dose: Not Given Hydralazine HCl (Apresoline) 10 mg PO BID [facility] Stop: 02/10/19 08:59 Last Admin: 12/23/18 12:44 Dose: Not Given Ibuprofen (Motrin) 600 mg PO Q8H PRN PRN Reason: for breakthrough pain Stop: 02/10/19 08:18 Last Admin: 12/23/18 00:30 Dose: 600 mg Insulin Glargine (Lantus Insulin) 26 units SUBQ HS CAL Stop: 02/13/19 20:59 Last Admin: 12/22/18 22:00 Dose: 26 units Insulin Human Lispro (Humalog Insulin Sliding Scale) 0 units SUBQ ACHS [facility]; Protocol Stop: 02/09/19 21:59 Last Admin: 12/23/18 17:40 Dose: 6 units Ipratropium [place] (Atrovent Neb 0.5mg/2.5ml) 0.5 mg HHN Q4HRT [facility] Stop: 02/09/19 22:59 Last Admin: 12/23/18 19:39 Dose: 0.5 mg Isosorbide Dinitrate (Isordil) 10 mg PO Q8H [facility] Stop: 02/10/19 08:29 Last Admin: 12/23/18 08:30 Dose: 10 mg Latanoprost (Xalatan 0.005% Ophth Soln) 1 drop EACH [facility]YE [facility] Stop: 02/10/19 20:59 Last Admin: 12/22/18 22:00 Dose: Not Given Levothyroxine Sodium (Synthroid) 0.075 mg PO DAILY [facility] Stop: 02/10/19 08:59 Last Admin: 12/23/18 09:00 Dose: 0.075 mg Loratadine (Claritin) 10 mg PO DAILY [facility] Stop: 02/10/19 08:59 Last Admin: 12/23/18 09:00 Dose: 10 mg Lorazepam (Ativan) 0.5 mg PO Q4HR PRN; Protocol PRN Reason: Anxiety Stop: 01/11/19 02:34 Last Admin: 12/23/18 00:30 Dose: 0.5 mg Losartan Potassium (Cozaar) 50 mg PO DAILY [facility] Stop: 02/10/19 08:59 Last Admin: 12/23/18 09:00 Dose: 50 mg Magnesium Hydroxide (Milk Of Magnesia) 30 ml PO DAILY PRN PRN Reason: Constipation Stop: 02/09/19 21:38 Last Admin: 12/23/18 12:42 Dose: 30 ml Nitroglycerin (Nitrostat) 0.4 mg SL Q5MIN PRN PRN Reason: CHEST PAIN Stop: 02/19/19 15:47 Last Admin: 12/22/18 18:08 Dose: 0.4 mg Nystatin (Mycostatin Cream) 1 appl TP Q12HR CAL Stop: 02/10/19 11:59 Last Admin: 12/23/18 12:38 Dose: 1 appl Nystatin (Nystop) 100 units TP DAILY [facility] Stop: 02/11/19 11:05 Last Admin: 12/23/18 09:00 Dose: 100 units Ondansetron HCl (Zofran Odt) 4 mg PO Q6H PRN PRN Reason: nausea and vomiting Oxycodone/Acetaminophen (Percocet 5/325mg Oral Tab) 1 tab PO Q6H [facility] Stop: 02/10/19 08:59 Last Admin: 12/23/18 17:20 Dose: 1 tab Rivaroxaban (Xarelto) 15 mg PO QPM [facility] Stop: 02/10/19 16:59 Last Admin: 12/22/18 18:11 Dose: Not Given Senna (Senna) 17.2 mg PO HS CAL Stop: 02/10/19 20:59 Last Admin: 12/22/18 21:45 Dose: 17.2 mg Sodium Phosphate (Fleet Enema) 135 ml RC DAILY PRN PRN Reason: Constipation Stop: 02/10/19 08:18 Vitamin B Complex/Vit C/Folic Acid (Vitamin B Complex W/Vitamin C) 1 tab PO DAILY [facility] Stop: 02/10/19 08:59 Last Admin: 12/23/18 09:00 Dose: 1 tab Zolpidem Tartrate (Ambien) 5 mg PO HS PRN PRN Reason: Insomnia Stop: 02/17/19 14:30 General: alert, demented, obese HEENT: NC/AT, PERRLA, EOMI, anicteric sclerae, throat clear Neck: Supple, No JVD, No thyromegaly, +2 carotid pulse wo bruit, No LAD Lungs: CTAB Cardiovascular: RRR, Normal S1, Normal S2, without murmur Abdomen: soft, non-tender, non-distended Extremities: clear Neurological: no change Internal Medicine Assmt/Plan - Assessment Assessment: 1.HTN 2.DJD. 3.DM. 4.PSYCHOSIS - Plan Plan: CONTINUE ON CURRENT MEDICATION AND DIET. Nutritional Asmnt/Malnutr-PDOC - Dietary Evaluation Malnutrition Findings (Please click <Entered> for more info): Nutritional Asmnt/Malnutrition Start: 12/13/18 20: 14 Text: Status: Active Freq: Protocol: Document 12/13/18 20:14 [email or web address] (Rec: 12/13/18 20:40 [email or web address]) Nutritional Asmnt/Malnutrition Patient General Information Nutritional Screening Moderate Risk Diagnosis psychosis Pertinent Medical Hx/Surgical Hx HTN, DM Subjective Information Pt seen sitting up in bed, eating dinner, says she has a poor appetite and her nose hurts, dislikes the pureed foods & would prefer chopped foods, says she dislikes corn, rice, and spicy foods. Likes chocolate flavors. Pt appears to be edentulous. Current Diet Order/ Nutrition Support Pureed/standard carb- 60 Patient / S.O Not Indicated Pertinent Medications lipitor, dulcolax, coreg, colace, insulin, milk of magnesia, senna, vitamin B complex w/vitamin C/folic acid Pertinent Labs POC Glucose 369 mg/dL Nutritional Hx/Data Height 1.75 m Height (Calculated Centimeters) 175.3 Current Weight (lbs) 140.614 kg Weight (Calculated Kilograms) 140.6 Weight (Calculated Grams) 902128.6 [place] Body Weight 145 lbs, 65.9 kg % [place] Body Weight 214 Body Mass Index (BMI) 45.8 Weight Status Morbidly Obese GI Symptoms GI Symptoms None Difficult in: Chewing Food Allergies No Current %PO Good (75-100%) Estimated Nutritional Goals BEE in Kcals: Using Current wt Calories/Kcals/Kg 15 Kcals Calculated 5 Protein: Using Current wt Protein g/k.8-1 Protein Calculated 113-141 Fluid: ml 2115 ml (1 ml/kcal) Nutritional Problem 1. Problem Problem Altered nutrition related laboratory values- poc glucose - related to impaired glycemic control as evidenced by poc glucose 369. Intervention/Recommendation Comments continue current diet rx. patient may benefit from heart healthy (low fat/low sodium/ low cholesterol), consistent carbohydrate diet upon discharge. Expected Outcomes/Goals Expected Outcomes/Goals 1- poc glucose trending down from 369 2- maintain po intakes >75% of all meals Electronically Signed By: Jaye Mcbride, MPH, RDN Clinical Dietitian 12/13/2018 8:41 PM
[2018-12-23] MEDS: Atorvastatin Calcium 10 MG TAB PO SCH (21:58)
[2018-12-23] MEDS: Insulin Glargine 100 units/ml 10ml Vial SUBQ SCH (21:59)
[2018-12-24] MEDS: Ipratropium Neb 0.5 mg/2.5 mL UD HHN SCH ×6 (02:46→23:02)
[2018-12-24] MEDS: APAP/Oxycodone 5/325mg Tab PO SCH ×4 (04:00→22:41)
[2018-12-24] MEDS: INSULIN LISPRO SLIDING SCALE 100 UNITS/ML UNIT SUBQ SCH ×4 (06:35→22:40)
[2018-12-24] MEDS: Fluticasone Propionate Nasal 1 SPR SPR NS SCH (09:18)
[2018-12-24] MEDS: Vitamin B Complex w/Vitamin C Tab PO SCH (09:20)
[2018-12-24] MEDS: Nystatin Cream 100,000 u/gm Cream 15 gm TP SCH ×2 (09:20→22:42)
[2018-12-24] MEDS: Levothyroxine 0.075 Mg Tab PO SCH (09:21)
[2018-12-24] MEDS: NYSTATIN 100000 UNITS/GM POWD TP SCH (09:21)
[2018-12-24] MEDS: Haldol Oral Sol.(concentrate) 10 mg/5 mL Udc PO SCH ×2 (09:23→17:18)
--- NOTE | 2018-12-24 20:24 | Internal Medicine Prog Note ---
Internal Medicine Subjective - Subjective Service Date: 12/24/18 Patient seen and examined:: with staff (SHE IS DOING BETTER) Patient is:: awake, verbal, in bed, talking, confused Per staff patient has:: no adverse event Internal Medicine Objective - Results Recent Labs: Laboratory Last Values POC Glucose 204 MG/DL (70 - 105) H 12/21/18 11:38 Triglycerides 336 mg/dL (<150) H 12/12/18 07:10 Cholesterol 174 mg/dL (<200) 12/12/18 07:10 LDL Cholesterol Direct 98 mg/dL (75-193) 12/12/18 07:10 HDL Cholesterol 30 mg/dL (23-92) 12/12/18 07:10 - Physical Exam Vitals and I&O: Vital Signs Temp 98.0 F 12/24/18 14:43 Pulse 78 12/24/18 19:00 Resp 18 12/24/18 19:00 BP 160/78 12/24/18 17:27 Pulse Ox 97 12/24/18 19:00 Intake & Output 12/24/18 12/24/18 12/25/18 06:59 18:59 06:59 Intake Total 240 1000 Balance 240 1000 Intake: Oral 240 1000 Other: # Voids 2 4 # Bowel Movements 3 Active Medications: Current Medications Acetaminophen (Tylenol Extra Strength) 500 mg PO Q4HR PRN PRN Reason: Pain or Fever >101 Stop: 02/09/19 21:38 Last Admin: 12/17/18 22:25 Dose: 500 mg Albuterol Sulfate (Albuterol 2.5mg/3ml Neb Ud) 2.5 mg HHN Q4H PRN PRN Reason: Shortness of Breath or Wheeze Stop: 02/09/19 21:38 Last Admin: 12/23/18 16:35 Dose: 2.5 mg Aripiprazole (Abilify) 20 mg PO DAILY [facility]; Protocol Stop: 02/12/19 08:59 Last Admin: 12/24/18 09:23 Dose: Not Given Aspirin (Ecotrin) 81 mg PO DAILY [facility] Stop: 02/10/19 08:59 Last Admin: 12/24/18 09:20 Dose: 81 mg Atorvastatin Calcium (Lipitor) 20 mg PO HS [facility] Stop: 02/10/19 20:59 Last Admin: 12/23/18 21:58 Dose: 20 mg Bisacodyl (Dulcolax 10 Mg Supp) 10 mg RC Q24H PRN PRN Reason: Constipation Stop: 02/10/19 10:59 Last Admin: 12/14/18 05:50 Dose: 10 mg Brimonidine Tartrate (Alphagan 0.1% Ophth Soln) 1 drop EACH EYE TID [facility] Stop: 02/10/19 08:59 Last Admin: 12/24/18 14:56 Dose: 1 drop Carvedilol (Coreg) 6.25 mg PO BID [facility] Stop: 02/10/19 08:59 Last Admin: 12/24/18 17:26 Dose: 6.25 mg Dextrose (D50w) 50 ml IVP PRN PRN PRN Reason: Blood Glucose less than 70 Stop: 02/09/19 21:43 Dextrose (Glutose 40%) 18.75 gm PO PRN PRN PRN Reason: BS below 70 & tolerate po Stop: 02/09/19 21:43 Docusate Sodium (Colace) 100 mg PO BID [facility] Stop: 02/10/19 08:59 Last Admin: 12/24/18 17:26 Dose: 100 mg Duloxetine HCl (Cymbalta) 60 mg PO DAILY [facility]; Protocol Stop: 02/10/19 08:59 Last Admin: 12/24/18 09:20 Dose: Not Given Fluticasone Propionate (Flonase) 1 spr NS DAILY [facility] Stop: 02/10/19 08:59 Last Admin: 12/24/18 09:18 Dose: 1 spr Furosemide (Lasix) 20 mg PO BID [facility] Stop: 02/10/19 08:59 Last Admin: 12/24/18 17:26 Dose: 20 mg Glucagon (Glucagen) 1 mg IM PRN PRN PRN Reason: BS below 70&dextrose ineffecti Stop: 02/09/19 21:43 Haloperidol Decanoate (Haldol Dec) 50 mg IM QMONTH [facility]; Protocol Stop: 02/19/19 06:29 Haloperidol Lactate (Haldol Concentrate 10mg/5ml Susp) 7.5 mg PO BID [facility]; Protocol Stop: 02/17/19 08:59 Last Admin: 12/24/18 17:18 Dose: Not Given Hydralazine HCl (Apresoline) 10 mg PO BID [facility] Stop: 02/10/19 08:59 Last Admin: 12/24/18 17:27 Dose: 10 mg Ibuprofen (Motrin) 600 mg PO Q8H PRN PRN Reason: for breakthrough pain Stop: 02/10/19 08:18 Last Admin: 12/24/18 12:06 Dose: 600 mg Insulin Glargine (Lantus Insulin) 26 units SUBQ HS [facility] Stop: 02/13/19 20:59 Last Admin: 12/23/18 21:59 Dose: 26 units Insulin Human Lispro (Humalog Insulin Sliding Scale) 0 units SUBQ ACHS [facility]; Protocol Stop: 02/09/19 21:59 Last Admin: 12/24/18 17:27 Dose: 8 units Ipratropium [place] (Atrovent Neb 0.5mg/2.5ml) 0.5 mg HHN Q4HRT [facility] Stop: 02/09/19 22:59 Last Admin: 12/24/18 19:00 Dose: 0.5 mg Isosorbide Dinitrate (Isordil) 10 mg PO Q8H [facility] Stop: 02/10/19 08:29 Last Admin: 12/24/18 17:36 Dose: Not Given Latanoprost (Xalatan 0.005% Ophth Soln) 1 drop EACH EYE [facility] Stop: 02/10/19 20:59 Last Admin: 12/23/18 22:00 Dose: 1 drop Levothyroxine Sodium (Synthroid) 0.075 mg PO DAILY [facility] Stop: 02/10/19 08:59 Last Admin: 12/24/18 09:21 Dose: 0.075 mg Loratadine (Claritin) 10 mg PO DAILY [facility] Stop: 02/10/19 08:59 Last Admin: 12/24/18 09:22 Dose: Not Given Lorazepam (Ativan) 0.5 mg PO Q4HR PRN; Protocol PRN Reason: Anxiety Stop: 01/11/19 02:34 Last Admin: 12/23/18 21:58 Dose: 0.5 mg Losartan Potassium (Cozaar) 50 mg PO DAILY [facility] Stop: 02/10/19 08:59 Last Admin: 12/24/18 09:21 Dose: 50 mg Magnesium Hydroxide (Milk Of Magnesia) 30 ml PO DAILY PRN PRN Reason: Constipation Stop: 02/09/19 21:38 Last Admin: 12/23/18 12:42 Dose: 30 ml Nitroglycerin (Nitrostat) 0.4 mg SL Q5MIN PRN PRN Reason: CHEST PAIN Stop: 02/19/19 15:47 Last Admin: 12/22/18 18:08 Dose: 0.4 mg Nystatin (Mycostatin Cream) 1 appl TP Q12HR [facility] Stop: 02/10/19 11:59 Last Admin: 12/24/18 09:20 Dose: 1 appl Nystatin (Nystop) 100 units TP DAILY [facility] Stop: 02/11/19 11:05 Last Admin: 12/24/18 09:21 Dose: 100 units Ondansetron HCl (Zofran Odt) 4 mg PO Q6H PRN PRN Reason: nausea and vomiting Oxycodone/Acetaminophen (Percocet 5/325mg Oral Tab) 1 tab PO Q6H [facility] Stop: 02/10/19 08:59 Last Admin: 12/24/18 14:56 Dose: 1 tab Rivaroxaban (Xarelto) 15 mg PO QPM [facility] Stop: 02/10/19 16:59 Last Admin: 12/24/18 17:25 Dose: 15 mg Senna (Senna) 17.2 mg PO HS [facility] Stop: 02/10/19 20:59 Last Admin: 12/23/18 21:59 Dose: 17.2 mg Sodium Phosphate (Fleet Enema) 135 ml RC DAILY PRN PRN Reason: Constipation Stop: 02/10/19 08:18 Vitamin B Complex/Vit C/Folic Acid (Vitamin B Complex W/Vitamin C) 1 tab PO DAILY [facility] Stop: 02/10/19 08:59 Last Admin: 12/24/18 09:20 Dose: 1 tab Zolpidem Tartrate (Ambien) 5 mg PO HS PRN PRN Reason: Insomnia Stop: 02/17/19 14:30 General: alert, demented, obese HEENT: NC/AT, PERRLA, EOMI, anicteric sclerae, throat clear Neck: Supple, No JVD, No thyromegaly, +2 carotid pulse wo bruit, No LAD Lungs: CTAB Cardiovascular: RRR, Normal S1, Normal S2, without murmur Abdomen: soft, non-tender, non-distended Extremities: clear Neurological: no change Internal Medicine Assmt/Plan - Assessment Assessment: 1.HTN 2.DJD. 3.DM. 4.PSYCHOSIS - Plan Plan: CONTINUE ON CURRENT MEDICATION AND DIET. Nutritional Asmnt/Malnutr-PDOC - Dietary Evaluation Malnutrition Findings (Please click <Entered> for more info): Nutritional Asmnt/Malnutrition Start: 12/13/18 20: 14 Text: Status: Active Freq: Protocol: Document 12/13/18 20:14 [email or web address] (Rec: 12/13/18 20:40 [email or web address]) Nutritional Asmnt/Malnutrition Patient General Information Nutritional Screening Moderate Risk Diagnosis psychosis Pertinent Medical Hx/Surgical Hx HTN, DM Subjective Information Pt seen sitting up in bed, eating dinner, says she has a poor appetite and her nose hurts, dislikes the pureed foods & would prefer chopped foods, says she dislikes corn, rice, and spicy foods. Likes chocolate flavors. Pt appears to be edentulous. Current Diet Order/ Nutrition Support Pureed/standard carb- 60 Patient / S.O Not Indicated Pertinent Medications lipitor, dulcolax, coreg, colace, insulin, milk of magnesia, senna, vitamin B complex w/vitamin C/folic acid Pertinent Labs POC Glucose 369 mg/dL Nutritional Hx/Data Height 1.75 m Height (Calculated Centimeters) 175.3 Current Weight (lbs) 140.614 kg Weight (Calculated Kilograms) 140.6 Weight (Calculated Grams) 746925.6 [place] Body Weight 145 lbs, 65.9 kg % [place] Body Weight 214 Body Mass Index (BMI) 45.8 Weight Status Morbidly Obese GI Symptoms GI Symptoms None Difficult in: Chewing Food Allergies No Current %PO Good (75-100%) Estimated Nutritional Goals BEE in Kcals: Using Current wt Calories/Kcals/Kg 15 Kcals Calculated 5 Protein: Using Current wt Protein g/k.8-1 Protein Calculated 113-141 Fluid: ml 2115 ml (1 ml/kcal) Nutritional Problem 1. Problem Problem Altered nutrition related laboratory values- poc glucose - related to impaired glycemic control as evidenced by poc glucose 369. Intervention/Recommendation Comments continue current diet rx. patient may benefit from heart healthy (low fat/low sodium/ low cholesterol), consistent carbohydrate diet upon discharge. Expected Outcomes/Goals Expected Outcomes/Goals 1- poc glucose trending down from 369 2- maintain po intakes >75% of all meals Electronically Signed By: Jaye Mcbride, MPH, RDN Clinical Dietitian 12/13/2018 8:41 PM
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
[2018-12-24] MEDS: Atorvastatin Calcium 10 MG TAB PO SCH (22:42)
[2018-12-24] MEDS: Insulin Glargine 100 units/ml 10ml Vial SUBQ SCH (22:42)
[2018-12-25] MEDS: Ipratropium Neb 0.5 mg/2.5 mL UD HHN SCH ×6 (03:10→23:01)
[2018-12-25] MEDS: APAP/Oxycodone 5/325mg Tab PO SCH ×4 (04:12→21:35)
[2018-12-25] MEDS: INSULIN LISPRO SLIDING SCALE 100 UNITS/ML UNIT SUBQ SCH ×4 (06:38→21:39)
[2018-12-25] MEDS: Vitamin B Complex w/Vitamin C Tab PO SCH (09:10)
[2018-12-25] MEDS: Levothyroxine 0.075 Mg Tab PO SCH (09:12)
[2018-12-25] MEDS: Fluticasone Propionate Nasal 1 SPR SPR NS SCH (09:13)
[2018-12-25] MEDS: Haldol Oral Sol.(concentrate) 10 mg/5 mL Udc PO SCH ×2 (09:13→17:06)
[2018-12-25] MEDS: NYSTATIN 100000 UNITS/GM POWD TP SCH (09:14)
[2018-12-25] MEDS: Nystatin Cream 100,000 u/gm Cream 15 gm TP SCH ×2 (09:14→21:37)
[2018-12-25] MEDS: Magnesium Hydroxide (MOM) 30 mL UDC PO PRN (10:32)
--- NOTE | 2018-12-25 21:19 | Internal Medicine Prog Note ---
Internal Medicine Subjective - Subjective Service Date: 12/25/18 Patient seen and examined:: with staff (SHE FEELS WELL) Patient is:: awake, verbal, in bed, talking, confused Per staff patient has:: no adverse event Internal Medicine Objective - Results Recent Labs: Laboratory Last Values POC Glucose 204 MG/DL (70 - 105) H 12/21/18 11:38 Triglycerides 336 mg/dL (<150) H 12/12/18 07:10 Cholesterol 174 mg/dL (<200) 12/12/18 07:10 LDL Cholesterol Direct 98 mg/dL (75-193) 12/12/18 07:10 HDL Cholesterol 30 mg/dL (23-92) 12/12/18 07:10 - Physical Exam Vitals and I&O: Vital Signs Temp 98.5 F 12/25/18 20:11 Pulse 96 12/25/18 20:11 Resp 18 12/25/18 20:11 BP 132/78 12/25/18 20:11 Pulse Ox 96 12/25/18 20:11 Intake & Output 12/25/18 12/25/18 12/26/18 06:59 18:59 06:59 Intake Total 360 1500 120 Balance 360 1500 120 Intake: Oral 360 1500 120 Other: # Voids 2 5 3 # Bowel Movements 0 0 0 Active Medications: Current Medications Acetaminophen (Tylenol Extra Strength) 500 mg PO Q4HR PRN PRN Reason: Pain or Fever >101 Stop: 02/09/19 21:38 Last Admin: 12/17/18 22:25 Dose: 500 mg Albuterol Sulfate (Albuterol 2.5mg/3ml Neb Ud) 2.5 mg HHN Q4H PRN PRN Reason: Shortness of Breath or Wheeze Stop: 02/09/19 21:38 Last Admin: 12/23/18 16:35 Dose: 2.5 mg Aripiprazole (Abilify) 20 mg PO DAILY [facility]; Protocol Stop: 02/12/19 08:59 Last Admin: 12/25/18 09:13 Dose: Not Given Aspirin (Ecotrin) 81 mg PO DAILY [facility] Stop: 02/10/19 08:59 Last Admin: 12/25/18 09:11 Dose: 81 mg Atorvastatin Calcium (Lipitor) 20 mg PO HS [facility] Stop: 02/10/19 20:59 Last Admin: 12/24/18 22:42 Dose: Not Given Bisacodyl (Dulcolax 10 Mg Supp) 10 mg RC Q24H PRN PRN Reason: Constipation Stop: 02/10/19 10:59 Last Admin: 12/14/18 05:50 Dose: 10 mg Brimonidine Tartrate (Alphagan 0.1% Ophth Soln) 1 drop EACH EYE TID [facility] Stop: 02/10/19 08:59 Last Admin: 12/25/18 14:24 Dose: Not Given Carvedilol (Coreg) 6.25 mg PO BID [facility] Stop: 02/10/19 08:59 Last Admin: 12/25/18 17:40 Dose: 6.25 mg Dextrose (D50w) 50 ml IVP PRN PRN PRN Reason: Blood Glucose less than 70 Stop: 02/09/19 21:43 Dextrose (Glutose 40%) 18.75 gm PO PRN PRN PRN Reason: BS below 70 & tolerate po Stop: 02/09/19 21:43 Docusate Sodium (Colace) 100 mg PO BID [facility] Stop: 02/10/19 08:59 Last Admin: 12/25/18 17:40 Dose: 100 mg Duloxetine HCl (Cymbalta) 60 mg PO DAILY [facility]; Protocol Stop: 02/10/19 08:59 Last Admin: 12/25/18 09:13 Dose: Not Given Fluticasone Propionate (Flonase) 1 spr NS DAILY [facility] Stop: 02/10/19 08:59 Last Admin: 12/25/18 09:13 Dose: 1 spr Furosemide (Lasix) 20 mg PO BID [facility] Stop: 02/10/19 08:59 Last Admin: 12/25/18 17:40 Dose: 20 mg Glucagon (Glucagen) 1 mg IM PRN PRN PRN Reason: BS below 70&dextrose ineffecti Stop: 02/09/19 21:43 Haloperidol Decanoate (Haldol Dec) 50 mg IM QMONTH [facility]; Protocol Stop: 02/23/19 06:31 Last Admin: 12/25/18 09:13 Dose: Not Given Haloperidol Lactate (Haldol Concentrate 10mg/5ml Susp) 7.5 mg PO BID [facility]; Protocol Stop: 02/17/19 08:59 Last Admin: 12/25/18 17:06 Dose: Not Given Hydralazine HCl (Apresoline) 10 mg PO BID [facility] Stop: 02/10/19 08:59 Last Admin: 12/25/18 17:06 Dose: Not Given Ibuprofen (Motrin) 600 mg PO Q8H PRN PRN Reason: for breakthrough pain Stop: 02/10/19 08:18 Last Admin: 12/24/18 12:06 Dose: 600 mg Insulin Glargine (Lantus Insulin) 26 units SUBQ HS [facility] Stop: 02/13/19 20:59 Last Admin: 12/24/18 22:42 Dose: 26 units Insulin Human Lispro (Humalog Insulin Sliding Scale) 0 units SUBQ ACHS [facility]; Protocol Stop: 02/09/19 21:59 Last Admin: 12/25/18 17:06 Dose: Not Given Ipratropium [place] (Atrovent Neb 0.5mg/2.5ml) 0.5 mg HHN Q4HRT [facility] Stop: 02/09/19 22:59 Last Admin: 12/25/18 19:01 Dose: 0.5 mg Isosorbide Dinitrate (Isordil) 10 mg PO Q8H [facility] Stop: 02/10/19 08:29 Last Admin: 12/25/18 17:06 Dose: Not Given Latanoprost (Xalatan 0.005% Oph Soln) 1 drop EACH EYE [facility] Stop: 02/10/19 20:59 Last Admin: 12/24/18 22:42 Dose: Not Given Levothyroxine Sodium (Synthroid) 0.075 mg PO DAILY [facility] Stop: 02/10/19 08:59 Last Admin: 12/25/18 09:12 Dose: 0.075 mg Loratadine (Claritin) 10 mg PO DAILY [facility] Stop: 02/10/19 08:59 Last Admin: 12/25/18 09:13 Dose: 10 mg Lorazepam (Ativan) 0.5 mg PO Q4HR PRN; Protocol PRN Reason: Anxiety Stop: 01/11/19 02:34 Last Admin: 12/25/18 10:32 Dose: 0.5 mg Losartan Potassium (Cozaar) 50 mg PO DAILY [facility] Stop: 02/10/19 08:59 Last Admin: 12/25/18 09:11 Dose: 50 mg Magnesium Hydroxide (Milk Of Magnesia) 30 ml PO DAILY PRN PRN Reason: Constipation Stop: 02/09/19 21:38 Last Admin: 12/25/18 10:32 Dose: 30 ml Nitroglycerin (Nitrostat) 0.4 mg SL Q5MIN PRN PRN Reason: CHEST PAIN Stop: 02/19/19 15:47 Last Admin: 12/22/18 18:08 Dose: 0.4 mg Nystatin (Mycostatin Cream) 1 appl TP Q12HR [facility] Stop: 02/10/19 11:59 Last Admin: 12/25/18 09:14 Dose: Not Given Nystatin (Nystop) 100 units TP DAILY [facility] Stop: 02/11/19 11:05 Last Admin: 12/25/18 09:14 Dose: Not Given Ondansetron HCl (Zofran Odt) 4 mg PO Q6H PRN PRN Reason: nausea and vomiting Oxycodone/Acetaminophen (Percocet 5/325mg Oral Tab) 1 tab PO Q6H [facility] Stop: 02/10/19 08:59 Last Admin: 12/25/18 17:41 Dose: 1 tab Rivaroxaban (Xarelto) 15 mg PO QPM [facility] Stop: 02/10/19 16:59 Last Admin: 12/25/18 17:41 Dose: 15 mg Senna (Senna) 17.2 mg PO HS [facility] Stop: 02/10/19 20:59 Last Admin: 12/24/18 22:44 Dose: Not Given Sodium Phosphate (Fleet Enema) 135 ml RC DAILY PRN PRN Reason: Constipation Stop: 02/10/19 08:18 Vitamin B Complex/Vit C/Folic Acid (Vitamin B Complex W/Vitamin C) 1 tab PO DAILY [facility] Stop: 02/10/19 08:59 Last Admin: 12/25/18 09:10 Dose: 1 tab Zolpidem Tartrate (Ambien) 5 mg PO HS PRN PRN Reason: Insomnia Stop: 02/17/19 14:30 General: alert, demented, obese HEENT: NC/AT, PERRLA, EOMI, anicteric sclerae, throat clear Neck: Supple, No JVD, No thyromegaly, +2 carotid pulse wo bruit, No LAD Lungs: CTAB Cardiovascular: RRR, Normal S1, Normal S2, without murmur Abdomen: soft, non-tender, non-distended Extremities: clear Neurological: no change Internal Medicine Assmt/Plan - Assessment Assessment: 1.HTN 2.DJD. 3.DM. 4.PSYCHOSIS - Plan Plan: CONTINUE ON CURRENT MEDICATION AND DIET. Nutritional Asmnt/Malnutr-PDOC - Dietary Evaluation Malnutrition Findings (Please click <Entered> for more info): Nutritional Asmnt/Malnutrition Start: 12/13/18 20: 14 Text: Status: Active Freq: Protocol: Document 12/13/18 20:14 [email or web address] (Rec: 12/13/18 20:40 [email or web address]) Nutritional Asmnt/Malnutrition Patient General Information Nutritional Screening Moderate Risk Diagnosis psychosis Pertinent Medical Hx/Surgical Hx HTN, DM Subjective Information Pt seen sitting up in bed, eating dinner, says she has a poor appetite and her nose hurts, dislikes the pureed foods & would prefer chopped foods, says she dislikes corn, rice, and spicy foods. Likes chocolate flavors. Pt appears to be edentulous. Current Diet Order/ Nutrition Support Pureed/standard carb- 60 Patient / S.O Not Indicated Pertinent Medications lipitor, dulcolax, coreg, colace, insulin, milk of magnesia, senna, vitamin B complex w/vitamin C/folic acid Pertinent Labs POC Glucose 369 mg/dL Nutritional Hx/Data Height 1.75 m Height (Calculated Centimeters) 175.3 Current Weight (lbs) 140.614 kg Weight (Calculated Kilograms) 140.6 Weight (Calculated Grams) 664470.6 [place] Body Weight 145 lbs, 65.9 kg % [place] Body Weight 214 Body Mass Index (BMI) 45.8 Weight Status Morbidly Obese GI Symptoms GI Symptoms None Difficult in: Chewing Food Allergies No Current %PO Good (75-100%) Estimated Nutritional Goals BEE in Kcals: Using Current wt Calories/Kcals/Kg 15 Kcals Calculated 2114 Protein: Using Current wt Protein g/k.8-1 Protein Calculated 113-141 Fluid: ml 2115 ml (1 ml/kcal) Nutritional Problem 1. Problem Problem Altered nutrition related laboratory values- poc glucose - related to impaired glycemic control as evidenced by poc glucose 369. Intervention/Recommendation Comments continue current diet rx. patient may benefit from heart healthy (low fat/low sodium/ low cholesterol), consistent carbohydrate diet upon discharge. Expected Outcomes/Goals Expected Outcomes/Goals 1- poc glucose trending down from 369 2- maintain po intakes >75% of all meals Electronically Signed By: Jaye Mcbride, MPH, RDN Clinical Dietitian 12/13/2018 8:41 PM
[2018-12-25] MEDS: Atorvastatin Calcium 10 MG TAB PO SCH (21:36)
[2018-12-25] MEDS: Insulin Glargine 100 units/ml 10ml Vial SUBQ SCH (21:41)
[2018-12-26] MEDS: Ipratropium Neb 0.5 mg/2.5 mL UD HHN SCH ×6 (03:00→22:05)
[2018-12-26] MEDS: APAP/Oxycodone 5/325mg Tab PO SCH ×4 (03:26→20:53)
[2018-12-26] MEDS: INSULIN LISPRO SLIDING SCALE 100 UNITS/ML UNIT SUBQ SCH ×4 (06:30→20:51)
[2018-12-26] MEDS: Levothyroxine 0.075 Mg Tab PO SCH (08:46)
[2018-12-26] MEDS: Vitamin B Complex w/Vitamin C Tab PO SCH (08:47)
[2018-12-26] MEDS: NYSTATIN 100000 UNITS/GM POWD TP SCH (08:48)
[2018-12-26] MEDS: Fluticasone Propionate Nasal 1 SPR SPR NS SCH (08:48)
[2018-12-26] MEDS: Nystatin Cream 100,000 u/gm Cream 15 gm TP SCH ×2 (08:49→20:54)
[2018-12-26] MEDS: Haldol Oral Sol.(concentrate) 10 mg/5 mL Udc PO SCH (08:49)
--- NOTE | 2018-12-26 20:49 | Internal Medicine Prog Note ---
Internal Medicine Subjective - Subjective Service Date: 12/26/18 Patient seen and examined:: with staff (SHE IS DOING WELL) Patient is:: awake, verbal, in bed, talking, confused Per staff patient has:: no adverse event Internal Medicine Objective - Results Recent Labs: Laboratory Last Values POC Glucose 204 MG/DL (70 - 105) H 12/21/18 11:38 Triglycerides 336 mg/dL (<150) H 12/12/18 07:10 Cholesterol 174 mg/dL (<200) 12/12/18 07:10 LDL Cholesterol Direct 98 mg/dL (75-193) 12/12/18 07:10 HDL Cholesterol 30 mg/dL (23-92) 12/12/18 07:10 - Physical Exam Vitals and I&O: Vital Signs Temp 97.6 F 12/26/18 20:00 Pulse 88 12/26/18 20:00 Resp 18 12/26/18 20:00 BP 144/91 12/26/18 20:00 Pulse Ox 94 12/26/18 20:00 Intake & Output 12/26/18 12/26/18 12/27/18 06:59 18:59 06:59 Intake Total 400 2800 Balance 400 2800 Intake: Oral 400 2800 Other: # Voids 2 6 # Bowel Movements 0 1 Active Medications: Current Medications Acetaminophen (Tylenol Extra Strength) 500 mg PO Q4HR PRN PRN Reason: Pain or Fever >101 Stop: 02/09/19 21:38 Last Admin: 12/17/18 22:25 Dose: 500 mg Albuterol Sulfate (Albuterol 2.5mg/3ml Neb Ud) 2.5 mg HHN Q4H PRN PRN Reason: Shortness of Breath or Wheeze Stop: 02/09/19 21:38 Last Admin: 12/23/18 16:35 Dose: 2.5 mg Aripiprazole (Abilify) 20 mg PO DAILY [facility]; Protocol Stop: 02/12/19 08:59 Last Admin: 12/26/18 08:48 Dose: Not Given Aspirin (Ecotrin) 81 mg PO DAILY [facility] Stop: 02/10/19 08:59 Last Admin: 12/26/18 08:47 Dose: 81 mg Atorvastatin Calcium (Lipitor) 20 mg PO [facility] Stop: 02/10/19 20:59 Last Admin: 12/25/18 21:36 Dose: 20 mg Bisacodyl (Dulcolax 10 Mg Supp) 10 mg RC Q24H PRN PRN Reason: Constipation Stop: 02/10/19 10:59 Last Admin: 12/14/18 05:50 Dose: 10 mg Brimonidine Tartrate (Alphagan 0.1% Ophth Soln) 1 drop EACH EYE TID [facility] Stop: 02/10/19 08:59 Last Admin: 12/26/18 15:01 Dose: Not Given Carvedilol (Coreg) 6.25 mg PO BID [facility] Stop: 02/10/19 08:59 Last Admin: 12/26/18 17:13 Dose: 6.25 mg Dextrose (D50w) 50 ml IVP PRN PRN PRN Reason: Blood Glucose less than 70 Stop: 02/09/19 21:43 Dextrose (Glutose 40%) 18.75 gm PO PRN PRN PRN Reason: BS below 70 & tolerate po Stop: 02/09/19 21:43 Docusate Sodium (Colace) 100 mg PO BID [facility] Stop: 02/10/19 08:59 Last Admin: 12/26/18 17:13 Dose: 100 mg Duloxetine HCl (Cymbalta) 60 mg PO DAILY [facility]; Protocol Stop: 02/10/19 08:59 Last Admin: 12/26/18 08:48 Dose: Not Given Fluticasone Propionate (Flonase) 1 spr NS DAILY [facility] Stop: 02/10/19 08:59 Last Admin: 12/26/18 08:48 Dose: Not Given Furosemide (Lasix) 20 mg PO BID [facility] Stop: 02/10/19 08:59 Last Admin: 12/26/18 17:14 Dose: 20 mg Glucagon (Glucagen) 1 mg IM PRN PRN PRN Reason: BS below 70&dextrose ineffecti Stop: 02/09/19 21:43 Haloperidol Decanoate (Haldol Dec) 50 mg IM QMONTH [facility]; Protocol Stop: 02/23/19 21:19 Last Admin: 12/25/18 21:47 Dose: 50 mg Haloperidol Lactate (Haldol Concentrate 10mg/5ml Susp) 7.5 mg PO BID [facility]; Protocol Stop: 02/17/19 08:59 Last Admin: 12/26/18 08:49 Dose: Not Given Hydralazine HCl (Apresoline) 10 mg PO BID [facility] Stop: 02/10/19 08:59 Last Admin: 12/26/18 17:14 Dose: Not Given Ibuprofen (Motrin) 600 mg PO Q8H PRN PRN Reason: for breakthrough pain Stop: 02/10/19 08:18 Last Admin: 12/26/18 01:44 Dose: 600 mg Insulin Glargine (Lantus Insulin) 26 units SUBQ HS [facility] Stop: 02/13/19 20:59 Last Admin: 12/25/18 21:41 Dose: 26 units Insulin Human Lispro (Humalog Insulin Sliding Scale) 0 units SUBQ ACHS [facility]; Protocol Stop: 02/09/19 21:59 Last Admin: 12/26/18 17:14 Dose: Not Given Ipratropium [place] (Atrovent Neb 0.5mg/2.5ml) 0.5 mg HHN Q4HRT [facility] Stop: 02/09/19 22:59 Last Admin: 12/26/18 18:59 Dose: 0.5 mg Isosorbide Dinitrate (Isordil) 10 mg PO Q8H [facility] Stop: 02/10/19 08:29 Last Admin: 12/26/18 17:14 Dose: Not Given Latanoprost (Xalatan 0.005% [facility] Sol) 1 drop EACH EYE [facility] Stop: 02/10/19 20:59 Last Admin: 12/25/18 21:36 Dose: 1 drop Levothyroxine Sodium (Synthroid) 0.075 mg PO DAILY [facility] Stop: 02/10/19 08:59 Last Admin: 12/26/18 08:46 Dose: 0.075 mg Loratadine (Claritin) 10 mg PO DAILY [facility] Stop: 02/10/19 08:59 Last Admin: 12/26/18 08:48 Dose: 10 mg Lorazepam (Ativan) 0.5 mg PO Q4HR PRN; Protocol PRN Reason: Anxiety Stop: 01/11/19 02:34 Last Admin: 12/25/18 21:43 Dose: 0.5 mg Losartan Potassium (Cozaar) 50 mg PO DAILY [facility] Stop: 02/10/19 08:59 Last Admin: 12/26/18 08:46 Dose: 50 mg Magnesium Hydroxide (Milk Of Magnesia) 30 ml PO DAILY PRN PRN Reason: Constipation Stop: 02/09/19 21:38 Last Admin: 12/25/18 10:32 Dose: 30 ml Nitroglycerin (Nitrostat) 0.4 mg SL Q5MIN PRN PRN Reason: CHEST PAIN Stop: 02/19/19 15:47 Last Admin: 12/22/18 18:08 Dose: 0.4 mg Nystatin (Mycostatin Cream) 1 appl TP Q12HR [facility] Stop: 02/10/19 11:59 Last Admin: 12/26/18 08:49 Dose: Not Given Nystatin (Nystop) 100 units TP DAILY [facility] Stop: 02/11/19 11:05 Last Admin: 12/26/18 08:48 Dose: Not Given Ondansetron HCl (Zofran Odt) 4 mg PO Q6H PRN PRN Reason: nausea and vomiting Oxycodone/Acetaminophen (Percocet 5/325mg Oral Tab) 1 tab PO Q6H [facility] Stop: 02/10/19 08:59 Last Admin: 12/26/18 15:01 Dose: Not Given Rivaroxaban (Xarelto) 15 mg PO QPM [facility] Stop: 02/10/19 16:59 Last Admin: 12/26/18 17:14 Dose: Not Given Senna (Senna) 17.2 mg PO HS [facility] Stop: 02/10/19 20:59 Last Admin: 12/25/18 21:39 Dose: 17.2 mg Sodium Phosphate (Fleet Enema) 135 ml RC DAILY PRN PRN Reason: Constipation Stop: 02/10/19 08:18 Vitamin B Complex/Vit C/Folic Acid (Vitamin B Complex W/Vitamin C) 1 tab PO DAILY [facility] Stop: 02/10/19 08:59 Last Admin: 12/26/18 08:47 Dose: 1 tab Zolpidem Tartrate (Ambien) 5 mg PO HS PRN PRN Reason: Insomnia Stop: 02/17/19 14:30 General: alert, demented, obese HEENT: NC/AT, PERRLA, EOMI, anicteric sclerae, throat clear Neck: Supple, No JVD, No thyromegaly, +2 carotid pulse wo bruit, No LAD Lungs: CTAB Cardiovascular: RRR, Normal S1, Normal S2, without murmur Abdomen: soft, non-tender, non-distended Extremities: clear Neurological: no change Internal Medicine Assmt/Plan - Assessment Assessment: 1.HTN 2.DJD. 3.DM. 4.PSYCHOSIS - Plan Plan: CONTINUE ON CURRENT MEDICATION AND DIET. Nutritional Asmnt/Malnutr-PDOC - Dietary Evaluation Malnutrition Findings (Please click <Entered> for more info): Nutritional Asmnt/Malnutrition Start: 12/13/18 20: 14 Text: Status: Active Freq: Protocol: Document 12/13/18 20:14 [email or web address] (Rec: 12/13/18 20:40 [email or web address]) Nutritional Asmnt/Malnutrition Patient General Information Nutritional Screening Moderate Risk Diagnosis psychosis Pertinent Medical Hx/Surgical Hx HTN, DM Subjective Information Pt seen sitting up in bed, eating dinner, says she has a poor appetite and her nose hurts, dislikes the pureed foods & would prefer chopped foods, says she dislikes corn, rice, and spicy foods. Likes chocolate flavors. Pt appears to be edentulous. Current Diet Order/ Nutrition Support Pureed/standard carb- 60 Patient / S.O Not Indicated Pertinent Medications lipitor, dulcolax, coreg, colace, insulin, milk of magnesia, senna, vitamin B complex w/vitamin C/folic acid Pertinent Labs POC Glucose 369 mg/dL Nutritional Hx/Data Height 1.75 m Height (Calculated Centimeters) 175.3 Current Weight (lbs) 140.614 kg Weight (Calculated Kilograms) 140.6 Weight (Calculated Grams) 757624.6 [place] Body Weight 145 lbs, 65.9 kg % [place] Body Weight 214 Body Mass Index (BMI) 45.8 Weight Status Morbidly Obese GI Symptoms GI Symptoms None Difficult in: Chewing Food Allergies No Current %PO Good (75-100%) Estimated Nutritional Goals BEE in Kcals: Using Current wt Calories/Kcals/Kg 15 Kcals Calculated 2114 Protein: Using Current wt Protein g/k.8-1 Protein Calculated 113-141 Fluid: ml 2115 ml (1 ml/kcal) Nutritional Problem 1. Problem Problem Altered nutrition related laboratory values- poc glucose - related to impaired glycemic control as evidenced by poc glucose 369. Intervention/Recommendation Comments continue current diet rx. patient may benefit from heart healthy (low fat/low sodium/ low cholesterol), consistent carbohydrate diet upon discharge. Expected Outcomes/Goals Expected Outcomes/Goals 1- poc glucose trending down from 369 2- maintain po intakes >75% of all meals Electronically Signed By: Jaye Mcbride, MPH, RDN Clinical Dietitian 12/13/2018 8:41 PM
[2018-12-26] MEDS: Insulin Glargine 100 units/ml 10ml Vial SUBQ SCH (20:53)
[2018-12-26] MEDS: Atorvastatin Calcium 10 MG TAB PO SCH (20:53)
--- NOTE | 2018-12-26 23:22 | Progress Notes ---
DATE: 12/25/2018 Chart was reviewed and the patient interviewed. Also discussed the patient's condition with the staff. Reviewed records and labs. The patient's affect is brighter. The patient less agitated and less paranoid. The patient will go to [facility] today. JOB# [id number]
--- NOTE | 2018-12-26 23:35 | Progress Notes ---
DATE: 12/26/2018 SUBJECTIVE: Chart was reviewed and the patient was interviewed. Also discussed the patient's condition with the staff and reviewed records and labs. The patient is disappointed because yesterday the patient was not able to be discharged to the [facility] where she came from. Apparently, the [facility] does not want the patient back and that created more disappointment for the patient that she is more depressed. On the other hand, the patient seems to be slightly less paranoid. She also denies any intention to harm herself or others. ASSESSMENT: The patient is depressed and still psychotic, but seems to be less. TREATMENT PLAN: We will continue to work on discharge plans and also ineffective coping for the patient and we will continue to follow up. Also, try to find other placement for the patient. [facility]# [id number]
[2018-12-27] MEDS: Ipratropium Neb 0.5 mg/2.5 mL UD HHN SCH ×6 (03:11→22:37)
[2018-12-27] MEDS: APAP/Oxycodone 5/325mg Tab PO SCH ×3 (03:15→21:42)
[2018-12-27] MEDS: INSULIN LISPRO SLIDING SCALE 100 UNITS/ML UNIT SUBQ SCH ×4 (06:37→22:03)
[2018-12-27] MEDS: Fluticasone Propionate Nasal 1 SPR SPR NS SCH (09:20)
[2018-12-27] MEDS: Levothyroxine 0.075 Mg Tab PO SCH (09:22)
[2018-12-27] MEDS: Vitamin B Complex w/Vitamin C Tab PO SCH (09:22)
[2018-12-27] MEDS: Haldol Oral Sol.(concentrate) 10 mg/5 mL Udc PO SCH ×2 (09:25→17:41)
--- NOTE | 2018-12-27 16:07 | Progress Notes ---
DATE: 12/27/2018 Case was discussed with staff of the patient, reviewed records. The patient continues to be in isolation, continues to be unpredictable, impulsive with episodes of agitation and irritability, continues to have poor insight, easily agitated, still [facility] because of her condition and because she was apparently discharged and came back and the patient has been disappointed. She is more depressed. We will continue the patient in group therapy, milieu therapy, adjust medication as needed. [facility]# [id number]
[2018-12-27] MEDS: Magnesium Hydroxide (MOM) 30 mL UDC PO PRN (17:23)
[2018-12-27] MEDS: NYSTATIN 100000 UNITS/GM POWD TP SCH (17:44)
--- NOTE | 2018-12-27 20:08 | Internal Medicine Prog Note ---
Internal Medicine Subjective - Subjective Service Date: 12/27/18 Patient seen and examined:: with staff (SHE FEELS WELL) Patient is:: awake, verbal, in bed, talking, confused Per staff patient has:: no adverse event Internal Medicine Objective - Results Recent Labs: Laboratory Last Values POC Glucose 204 MG/DL (70 - 105) H 12/21/18 11:38 Triglycerides 336 mg/dL (<150) H 12/12/18 07:10 Cholesterol 174 mg/dL (<200) 12/12/18 07:10 LDL Cholesterol Direct 98 mg/dL (75-193) 12/12/18 07:10 HDL Cholesterol 30 mg/dL (23-92) 12/12/18 07:10 - Physical Exam Vitals and I&O: Vital Signs Temp 97.2 F 12/27/18 06:30 Pulse 85 12/27/18 19:06 Resp 18 12/27/18 19:06 BP 133/71 12/27/18 17:41 Pulse Ox 96 12/27/18 19:06 Intake & Output 12/27/18 12/27/18 12/28/18 06:59 18:59 06:59 Intake Total 120 1300 Balance 120 1300 Intake: Oral 120 1300 Other: # Voids 3 Active Medications: Current Medications Acetaminophen (Tylenol Extra Strength) 500 mg PO Q4HR PRN PRN Reason: Pain or Fever >101 Stop: 02/09/19 21:38 Last Admin: 12/17/18 22:25 Dose: 500 mg Albuterol Sulfate (Albuterol 2.5mg/3ml Neb Ud) 2.5 mg HHN Q4H PRN PRN Reason: Shortness of Breath or Wheeze Stop: 02/09/19 21:38 Last Admin: 12/23/18 16:35 Dose: 2.5 mg Aripiprazole (Abilify) 20 mg PO DAILY [facility]; Protocol Stop: 02/12/19 08:59 Last Admin: 12/27/18 09:25 Dose: Not Given Aspirin (Ecotrin) 81 mg PO DAILY [facility] Stop: 02/10/19 08:59 Last Admin: 12/27/18 09:21 Dose: 81 mg Atorvastatin Calcium (Lipitor) 20 mg PO HS [facility] Stop: 02/10/19 20:59 Last Admin: 12/26/18 20:53 Dose: 20 mg Bisacodyl (Dulcolax 10 Mg Supp) 10 mg RC Q24H PRN PRN Reason: Constipation Stop: 02/10/19 10:59 Last Admin: 12/14/18 05:50 Dose: 10 mg Brimonidine Tartrate (Alphagan 0.1% Ophth Soln) 1 drop EACH EYE TID [facility] Stop: 02/10/19 08:59 Last Admin: 12/27/18 13:00 Dose: 1 drop Carvedilol (Coreg) 6.25 mg PO BID [facility] Stop: 02/10/19 08:59 Last Admin: 12/27/18 17:44 Dose: Not Given Dextrose (D50w) 50 ml IVP PRN PRN PRN Reason: Blood Glucose less than 70 Stop: 02/09/19 21:43 Dextrose (Glutose 40%) 18.75 gm PO PRN PRN PRN Reason: BS below 70 & tolerate po Stop: 02/09/19 21:43 Docusate Sodium (Colace) 100 mg PO BID [facility] Stop: 02/10/19 08:59 Last Admin: 12/27/18 17:24 Dose: 100 mg Duloxetine HCl (Cymbalta) 60 mg PO DAILY [facility]; Protocol Stop: 02/10/19 08:59 Last Admin: 12/27/18 09:25 Dose: Not Given Fluticasone Propionate (Flonase) 1 spr NS DAILY [facility] Stop: 02/10/19 08:59 Last Admin: 12/27/18 09:20 Dose: 1 spr Furosemide (Lasix) 20 mg PO BID [facility] Stop: 02/10/19 08:59 Last Admin: 12/27/18 17:24 Dose: 20 mg Glucagon (Glucagen) 1 mg IM PRN PRN PRN Reason: BS below 70&dextrose ineffecti Stop: 02/09/19 21:43 Haloperidol Decanoate (Haldol Dec) 50 mg IM QMONTH [facility]; Protocol Stop: 02/23/19 21:19 Last Admin: 12/25/18 21:47 Dose: 50 mg Haloperidol Lactate (Haldol Concentrate 10mg/5ml Susp) 7.5 mg PO BID [facility]; Protocol Stop: 02/17/19 08:59 Last Admin: 12/27/18 17:41 Dose: Not Given Hydralazine HCl (Apresoline) 10 mg PO BID [facility] Stop: 02/10/19 08:59 Last Admin: 12/27/18 17:24 Dose: 10 mg Ibuprofen (Motrin) 600 mg PO Q8H PRN PRN Reason: for breakthrough pain Stop: 02/10/19 08:18 Last Admin: 12/26/18 01:44 Dose: 600 mg Insulin Glargine (Lantus Insulin) 26 units SUBQ HS [facility] Stop: 02/13/19 20:59 Last Admin: 12/26/18 20:53 Dose: 26 units Insulin Human Lispro (Humalog Insulin Sliding Scale) 0 units SUBQ ACHS [facility]; Protocol Stop: 02/09/19 21:59 Last Admin: 12/27/18 17:43 Dose: 6 units Ipratropium [place] (Atrovent Neb 0.5mg/2.5ml) 0.5 mg HHN Q4HRT [facility] Stop: 02/09/19 22:59 Last Admin: 12/27/18 19:04 Dose: 0.5 mg Isosorbide Dinitrate (Isordil) 10 mg PO Q8H [facility] Stop: 02/10/19 08:29 Last Admin: 12/27/18 17:41 Dose: Not Given Latanoprost (Xalatan 0.005% Ophth Soln) 1 drop EACH EYE [facility] Stop: 02/10/19 20:59 Last Admin: 12/26/18 20:54 Dose: 1 drop Levothyroxine Sodium (Synthroid) 0.075 mg PO DAILY [facility] Stop: 02/10/19 08:59 Last Admin: 12/27/18 09:22 Dose: 0.075 mg Loratadine (Claritin) 10 mg PO DAILY [facility] Stop: 02/10/19 08:59 Last Admin: 12/27/18 09:22 Dose: 10 mg Lorazepam (Ativan) 0.5 mg PO Q4HR PRN; Protocol PRN Reason: Anxiety Stop: 01/11/19 02:34 Last Admin: 12/26/18 22:42 Dose: 0.5 mg Losartan Potassium (Cozaar) 50 mg PO DAILY [facility] Stop: 02/10/19 08:59 Last Admin: 12/27/18 10:30 Dose: Not Given Magnesium Hydroxide (Milk Of Magnesia) 30 ml PO DAILY PRN PRN Reason: Constipation Stop: 02/09/19 21:38 Last Admin: 12/27/18 17:23 Dose: 30 ml Nitroglycerin (Nitrostat) 0.4 mg SL Q5MIN PRN PRN Reason: CHEST PAIN Stop: 02/19/19 15:47 Last Admin: 12/22/18 18:08 Dose: 0.4 mg Nystatin (Nystop) 100 units TP BID [facility] Stop: 02/25/19 16:59 Last Admin: 12/27/18 17:44 Dose: 100 units Nystatin (Mycostatin Cream) 1 appl TP Q12HR [facility] Stop: 02/25/19 20:59 Ondansetron HCl (Zofran Odt) 4 mg PO Q6H PRN PRN Reason: nausea and vomiting Last Admin: 12/27/18 07:45 Dose: 4 mg Oxycodone/Acetaminophen (Percocet 5/325mg Oral Tab) 1 tab PO Q6H [facility] Stop: 02/10/19 08:59 Last Admin: 12/27/18 13:00 Dose: 1 tab Senna (Senna) 17.2 mg PO HS [facility] Stop: 02/10/19 20:59 Last Admin: 12/26/18 20:54 Dose: 17.2 mg Sodium Phosphate (Fleet Enema) 135 ml RC DAILY PRN PRN Reason: Constipation Stop: 02/10/19 08:18 Vitamin B Complex/Vit C/Folic Acid (Vitamin B Complex W/Vitamin C) 1 tab PO DAILY [facility] Stop: 02/10/19 08:59 Last Admin: 12/27/18 09:22 Dose: 1 tab Zolpidem Tartrate (Ambien) 5 mg PO HS PRN PRN Reason: Insomnia Stop: 02/17/19 14:30 General: alert, demented, obese HEENT: NC/AT, PERRLA, EOMI, anicteric sclerae, throat clear Neck: Supple, No JVD, No thyromegaly, +2 carotid pulse wo bruit, No LAD Lungs: CTAB Cardiovascular: RRR, Normal S1, Normal S2, without murmur Abdomen: soft, non-tender, non-distended Extremities: clear Neurological: no change Internal Medicine Assmt/Plan - Assessment Assessment: 1.HTN 2.DJD. 3.DM. 4.PSYCHOSIS - Plan Plan: CONTINUE ON CURRENT MEDICATION AND DIET. Nutritional Asmnt/Malnutr-PDOC - Dietary Evaluation Malnutrition Findings (Please click <Entered> for more info): Nutritional Asmnt/Malnutrition Start: 12/13/18 20: 14 Text: Status: Active Freq: Protocol: Document 12/13/18 20:14 [email or web address] (Rec: 12/13/18 20:40 [email or web address]) Nutritional Asmnt/Malnutrition Patient General Information Nutritional Screening Moderate Risk Diagnosis psychosis Pertinent Medical Hx/Surgical Hx HTN, DM Subjective Information Pt seen sitting up in bed, eating dinner, says she has a poor appetite and her nose hurts, dislikes the pureed foods & would prefer chopped foods, says she dislikes corn, rice, and spicy foods. Likes chocolate flavors. Pt appears to be edentulous. Current Diet Order/ Nutrition Support Pureed/standard carb- 60 Patient / S.O Not Indicated Pertinent Medications lipitor, dulcolax, coreg, colace, insulin, milk of magnesia, senna, vitamin B complex w/vitamin C/folic acid Pertinent Labs POC Glucose 369 mg/dL Nutritional Hx/Data Height 1.75 m Height (Calculated Centimeters) 175.3 Current Weight (lbs) 140.614 kg Weight (Calculated Kilograms) 140.6 Weight (Calculated Grams) 480707.6 [place] Body Weight 145 lbs, 65.9 kg % [place] Body Weight 214 Body Mass Index (BMI) 45.8 Weight Status Morbidly Obese GI Symptoms GI Symptoms None Difficult in: Chewing Food Allergies No Current %PO Good (75-100%) Estimated Nutritional Goals BEE in Kcals: Using Current wt Calories/Kcals/Kg 15 Kcals Calculated 2115 Protein: Using Current wt Protein g/k.8-1 Protein Calculated 113-141 Fluid: ml 2115 ml (1 ml/kcal) Nutritional Problem 1. Problem Problem Altered nutrition related laboratory values- poc glucose - related to impaired glycemic control as evidenced by poc glucose 369. Intervention/Recommendation Comments continue current diet rx. patient may benefit from heart healthy (low fat/low sodium/ low cholesterol), consistent carbohydrate diet upon discharge. Expected Outcomes/Goals Expected Outcomes/Goals 1- poc glucose trending down from 369 2- maintain po intakes >75% of all meals Electronically Signed By: Jaye Mcbride, MPH, RDN Clinical Dietitian 12/13/2018 8:41 PM
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
[2018-12-27] MEDS: Atorvastatin Calcium 10 MG TAB PO SCH (21:42)
[2018-12-27] MEDS: Nystatin Cream 100,000 u/gm Cream 15 gm TP SCH (21:43)
[2018-12-27] MEDS: Insulin Glargine 100 units/ml 10ml Vial SUBQ SCH (22:02)
[2018-12-28] MEDS: Ipratropium Neb 0.5 mg/2.5 mL UD HHN SCH ×7 (02:35→22:53)
[2018-12-28] MEDS: APAP/Oxycodone 5/325mg Tab PO SCH ×4 (04:06→21:09)
[2018-12-28] MEDS: INSULIN LISPRO SLIDING SCALE 100 UNITS/ML UNIT SUBQ SCH ×4 (06:37→21:12)
[2018-12-28] MEDS: Haldol Oral Sol.(concentrate) 10 mg/5 mL Udc PO SCH ×2 (09:26→16:52)
[2018-12-28] MEDS: Levothyroxine 0.075 Mg Tab PO SCH (09:27)
[2018-12-28] MEDS: Vitamin B Complex w/Vitamin C Tab PO SCH (09:28)
[2018-12-28] MEDS: Fluticasone Propionate Nasal 1 SPR SPR NS SCH (09:39)
[2018-12-28] MEDS: NYSTATIN 100000 UNITS/GM POWD TP SCH ×2 (09:40→16:57)
[2018-12-28] MEDS: Nystatin Cream 100,000 u/gm Cream 15 gm TP SCH ×2 (09:40→21:00)
--- NOTE | 2018-12-28 15:52 | Internal Medicine Prog Note ---
Internal Medicine Subjective - Subjective Service Date: 12/28/18 Patient seen and examined:: without staff (SHE FEELS WELL) Patient is:: awake, verbal, in bed, talking, confused Per staff patient has:: no adverse event Internal Medicine Objective - Results Recent Labs: Laboratory Last Values POC Glucose 204 MG/DL (70 - 105) H 12/21/18 11:38 Triglycerides 336 mg/dL (<150) H 12/12/18 07:10 Cholesterol 174 mg/dL (<200) 12/12/18 07:10 LDL Cholesterol Direct 98 mg/dL (75-193) 12/12/18 07:10 HDL Cholesterol 30 mg/dL (23-92) 12/12/18 07:10 - Physical Exam Vitals and I&O: Vital Signs Temp 98.2 F 12/28/18 14:00 Pulse 87 12/28/18 15:44 Resp 20 12/28/18 15:44 BP 148/76 12/28/18 15:36 Pulse Ox 96 12/28/18 15:44 Intake & Output 12/27/18 12/28/18 12/28/18 18:59 06:59 18:59 Intake Total 1300 120 Balance 1300 120 Intake: Oral 1300 120 Other: # Voids 3 Stool Characteristics Soft Formed Formed Active Medications: Current Medications Acetaminophen (Tylenol Extra Strength) 500 mg PO Q4HR PRN PRN Reason: Pain or Fever >101 Stop: 02/09/19 21:38 Last Admin: 12/17/18 22:25 Dose: 500 mg Albuterol Sulfate (Albuterol 2.5mg/3ml Neb Ud) 2.5 mg HHN Q4H PRN PRN Reason: Shortness of Breath or Wheeze Stop: 02/09/19 21:38 Last Admin: 12/23/18 16:35 Dose: 2.5 mg Aripiprazole (Abilify) 20 mg PO DAILY [facility]; Protocol Stop: 02/12/19 08:59 Last Admin: 12/28/18 09:28 Dose: 20 mg Aspirin (Ecotrin) 81 mg PO DAILY [facility] Stop: 02/10/19 08:59 Last Admin: 12/28/18 09:28 Dose: 81 mg Atorvastatin Calcium (Lipitor) 20 mg PO HS [facility] Stop: 02/10/19 20:59 Last Admin: 12/27/18 21:42 Dose: 20 mg Bisacodyl (Dulcolax 10 Mg Supp) 10 mg RC Q24H PRN PRN Reason: Constipation Stop: 02/10/19 10:59 Last Admin: 12/14/18 05:50 Dose: 10 mg Brimonidine Tartrate (Alphagan 0.1% Ophth Soln) 1 drop EACH EYE TID [facility] Stop: 02/10/19 08:59 Last Admin: 12/28/18 14:30 Dose: 1 drop Carvedilol (Coreg) 6.25 mg PO BID [facility] Stop: 02/10/19 08:59 Last Admin: 12/28/18 09:31 Dose: 6.25 mg Dextrose (D50w) 50 ml IVP PRN PRN PRN Reason: Blood Glucose less than 70 Stop: 02/09/19 21:43 Dextrose (Glutose 40%) 18.75 gm PO PRN PRN PRN Reason: BS below 70 & tolerate po Stop: 02/09/19 21:43 Docusate Sodium (Colace) 100 mg PO BID [facility] Stop: 02/10/19 08:59 Last Admin: 12/28/18 09:28 Dose: 100 mg Duloxetine HCl (Cymbalta) 60 mg PO DAILY [facility]; Protocol Stop: 02/10/19 08:59 Last Admin: 12/28/18 09:31 Dose: Not Given Fluticasone Propionate (Flonase) 1 spr NS DAILY [facility] Stop: 02/10/19 08:59 Last Admin: 12/28/18 09:39 Dose: 1 spr Furosemide (Lasix) 20 mg PO BID [facility] Stop: 02/10/19 08:59 Last Admin: 12/28/18 09:27 Dose: 20 mg Glucagon (Glucagen) 1 mg IM PRN PRN PRN Reason: BS below 70&dextrose ineffecti Stop: 02/09/19 21:43 Haloperidol Decanoate (Haldol Dec) 50 mg IM QMONTH [facility]; Protocol Stop: 02/23/19 21:19 Last Admin: 12/25/18 21:47 Dose: 50 mg Haloperidol Lactate (Haldol Concentrate 10mg/5ml Susp) 7.5 mg PO BID [facility]; Protocol Stop: 02/17/19 08:59 Last Admin: 12/28/18 09:26 Dose: 7.5 mg Hydralazine HCl (Apresoline) 10 mg PO BID [facility] Stop: 02/10/19 08:59 Last Admin: 12/28/18 09:29 Dose: 10 mg Ibuprofen (Motrin) 600 mg PO Q8H PRN PRN Reason: for breakthrough pain Stop: 02/10/19 08:18 Last Admin: 12/26/18 01:44 Dose: 600 mg Insulin Glargine (Lantus Insulin) 26 units SUBQ HS [facility] Stop: 02/13/19 20:59 Last Admin: 12/27/18 22:02 Dose: 26 units Insulin Human Lispro (Humalog Insulin Sliding Scale) 0 units SUBQ ACHS [facility]; Protocol Stop: 02/09/19 21:59 Last Admin: 12/28/18 11:54 Dose: 6 units Ipratropium [place] (Atrovent Neb 0.5mg/2.5ml) 0.5 mg HHN Q4HRT [facility] Stop: 02/09/19 22:59 Last Admin: 12/28/18 15:41 Dose: 0.5 mg Isosorbide Dinitrate (Isordil) 10 mg PO Q8H [facility] Stop: 02/10/19 08:29 Last Admin: 12/28/18 15:36 Dose: 10 mg Latanoprost (Xalatan 0.005% Ophth Soln) 1 drop EACH EYE [facility] Stop: 02/10/19 20:59 Last Admin: 12/27/18 21:43 Dose: Not Given Levothyroxine Sodium (Synthroid) 0.075 mg PO DAILY [facility] Stop: 02/10/19 08:59 Last Admin: 12/28/18 09:27 Dose: 0.075 mg Loratadine (Claritin) 10 mg PO DAILY [facility] Stop: 02/10/19 08:59 Last Admin: 12/28/18 09:29 Dose: 10 mg Lorazepam (Ativan) 0.5 mg PO Q4HR PRN; Protocol PRN Reason: Anxiety Stop: 01/11/19 02:34 Last Admin: 12/27/18 23:08 Dose: 0.5 mg Losartan Potassium (Cozaar) 50 mg PO DAILY [facility] Stop: 02/10/19 08:59 Last Admin: 12/28/18 09:29 Dose: 50 mg Magnesium Hydroxide (Milk Of Magnesia) 30 ml PO DAILY PRN PRN Reason: Constipation Stop: 02/09/19 21:38 Last Admin: 12/27/18 17:23 Dose: 30 ml Nitroglycerin (Nitrostat) 0.4 mg SL Q5MIN PRN PRN Reason: CHEST PAIN Stop: 02/19/19 15:47 Last Admin: 12/22/18 18:08 Dose: 0.4 mg Nystatin (Nystop) 100 units TP BID [facility] Stop: 02/25/19 16:59 Last Admin: 12/28/18 09:40 Dose: 100 units Nystatin (Mycostatin Cream) 1 appl TP Q12HR [facility] Stop: 02/25/19 20:59 Last Admin: 12/28/18 09:40 Dose: 1 appl Ondansetron HCl (Zofran Odt) 4 mg PO Q6H PRN PRN Reason: nausea and vomiting Last Admin: 12/27/18 07:45 Dose: 4 mg Oxycodone/Acetaminophen (Percocet 5/325mg Oral Tab) 1 tab PO Q6H [facility] Stop: 02/10/19 08:59 Last Admin: 12/28/18 15:05 Dose: 1 tab Senna (Senna) 17.2 mg PO HS [facility] Stop: 02/10/19 20:59 Last Admin: 12/27/18 21:42 Dose: 17.2 mg Sodium Phosphate (Fleet Enema) 135 ml RC DAILY PRN PRN Reason: Constipation Stop: 02/10/19 08:18 Vitamin B Complex/Vit C/Folic Acid (Vitamin B Complex W/Vitamin C) 1 tab PO DAILY [facility] Stop: 02/10/19 08:59 Last Admin: 12/28/18 09:28 Dose: 1 tab Zolpidem Tartrate (Ambien) 5 mg PO HS PRN PRN Reason: Insomnia Stop: 02/17/19 14:30 General: alert, demented, obese HEENT: NC/AT, PERRLA, EOMI, anicteric sclerae, throat clear Neck: Supple, No JVD, No thyromegaly, +2 carotid pulse wo bruit, No LAD Lungs: CTAB Cardiovascular: RRR, Normal S1, Normal S2, without murmur Abdomen: soft, non-tender, non-distended Extremities: clear Neurological: no change Internal Medicine Assmt/Plan - Assessment Assessment: 1.HTN 2.DJD. 3.DM. 4.PSYCHOSIS - Plan Plan: CONTINUE ON CURRENT MEDICATION AND DIET. Nutritional Asmnt/Malnutr-PDOC - Dietary Evaluation Malnutrition Findings (Please click <Entered> for more info): Nutritional Asmnt/Malnutrition Start: 12/13/18 20: 14 Text: Status: Active Freq: Protocol: Document 12/13/18 20:14 [email or web address] (Rec: 12/13/18 20:40 [email or web address]) Nutritional Asmnt/Malnutrition Patient General Information Nutritional Screening Moderate Risk Diagnosis psychosis Pertinent Medical Hx/Surgical Hx HTN, DM Subjective Information Pt seen sitting up in bed, eating dinner, says she has a poor appetite and her nose hurts, dislikes the pureed foods & would prefer chopped foods, says she dislikes corn, rice, and spicy foods. Likes chocolate flavors. Pt appears to be edentulous. Current Diet Order/ Nutrition Support Pureed/standard carb- 60 Patient / S.O Not Indicated Pertinent Medications lipitor, dulcolax, coreg, colace, insulin, milk of magnesia, senna, vitamin B complex w/vitamin C/folic acid Pertinent Labs POC Glucose 369 mg/dL Nutritional Hx/Data Height 1.75 m Height (Calculated Centimeters) 175.3 Current Weight (lbs) 140.614 kg Weight (Calculated Kilograms) 140.6 Weight (Calculated Grams) 645265.6 [place] Body Weight 145 lbs, 65.9 kg % [place] Body Weight 214 Body Mass Index (BMI) 45.8 Weight Status Morbidly Obese GI Symptoms GI Symptoms None Difficult in: Chewing Food Allergies No Current %PO Good (75-100%) Estimated Nutritional Goals BEE in Kcals: Using Current wt Calories/Kcals/Kg 15 Kcals Calculated 5 Protein: Using Current wt Protein g/k.8-1 Protein Calculated 113-141 Fluid: ml 2115 ml (1 ml/kcal) Nutritional Problem 1. Problem Problem Altered nutrition related laboratory values- poc glucose - related to impaired glycemic control as evidenced by poc glucose 369. Intervention/Recommendation Comments continue current diet rx. patient may benefit from heart healthy (low fat/low sodium/ low cholesterol), consistent carbohydrate diet upon discharge. Expected Outcomes/Goals Expected Outcomes/Goals 1- poc glucose trending down from 369 2- maintain po intakes >75% of all meals Electronically Signed By: Jaye Mcbride, MPH, RDN Clinical Dietitian 12/13/2018 8:41 PM
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
[2018-12-28] MEDS: Atorvastatin Calcium 10 MG TAB PO SCH (21:09)
[2018-12-28] MEDS: Insulin Glargine 100 units/ml 10ml Vial SUBQ SCH (21:12)
[2018-12-29] MEDS: Ipratropium Neb 0.5 mg/2.5 mL UD HHN SCH ×6 (02:44→23:28)
[2018-12-29] MEDS: APAP/Oxycodone 5/325mg Tab PO SCH ×5 (02:44→23:59)
[2018-12-29] MEDS: INSULIN LISPRO SLIDING SCALE 100 UNITS/ML UNIT SUBQ SCH ×3 (07:30→21:26)
[2018-12-29] MEDS: Vitamin B Complex w/Vitamin C Tab PO SCH (09:18)
[2018-12-29] MEDS: Levothyroxine 0.075 Mg Tab PO SCH (09:18)
[2018-12-29] MEDS: NYSTATIN 100000 UNITS/GM POWD TP SCH ×2 (09:19→16:31)
[2018-12-29] MEDS: Nystatin Cream 100,000 u/gm Cream 15 gm TP SCH ×2 (09:19→21:26)
[2018-12-29] MEDS: Fluticasone Propionate Nasal 1 SPR SPR NS SCH (09:19)
[2018-12-29] MEDS: Haldol Oral Sol.(concentrate) 10 mg/5 mL Udc PO SCH ×2 (09:20→16:17)
[2018-12-29] MEDS: Magnesium Hydroxide (MOM) 30 mL UDC PO PRN (16:29)
--- NOTE | 2018-12-29 20:51 | General Progress Note ---
Subjective - Review of Systems Service Date: 12/29/18 Subjective: awake and alert no distress Objective - Results Recent Labs: Laboratory Last Values POC Glucose 204 MG/DL (70 - 105) H 12/21/18 11:38 Triglycerides 336 mg/dL (<150) H 12/12/18 07:10 Cholesterol 174 mg/dL (<200) 12/12/18 07:10 LDL Cholesterol Direct 98 mg/dL (75-193) 12/12/18 07:10 HDL Cholesterol 30 mg/dL (23-92) 12/12/18 07:10 - Physical Exam Vitals and I&O: Vital Signs Temp 98.8 F 12/29/18 20:32 Pulse 86 12/29/18 20:32 Resp 18 12/29/18 20:32 BP 154/81 12/29/18 20:32 Pulse Ox 96 12/29/18 20:32 Intake & Output 12/29/18 12/29/18 12/30/18 06:59 18:59 06:59 Intake Total 240 1250 240 Balance 240 1250 240 Intake: Oral 240 1250 240 Other: # Voids 2 2 # Bowel Movements 0 Stool Characteristics Soft Soft Formed Formed Active Medications: Current Medications Acetaminophen (Tylenol Extra Strength) 500 mg PO Q4HR PRN PRN Reason: Pain or Fever >101 Stop: 02/09/19 21:38 Last Admin: 12/17/18 22:25 Dose: 500 mg Albuterol Sulfate (Albuterol 2.5mg/3ml Neb Ud) 2.5 mg HHN Q4H PRN PRN Reason: Shortness of Breath or Wheeze Stop: 02/09/19 21:38 Last Admin: 12/23/18 16:35 Dose: 2.5 mg Aripiprazole (Abilify) 20 mg PO DAILY [facility]; Protocol Stop: 02/12/19 08:59 Last Admin: 12/29/18 09:14 Dose: Not Given Aspirin (Ecotrin) 81 mg PO DAILY [facility] Stop: 02/10/19 08:59 Last Admin: 12/29/18 09:16 Dose: 81 mg Atorvastatin Calcium (Lipitor) 20 mg PO HS [facility] Stop: 02/10/19 20:59 Last Admin: 12/28/18 21:09 Dose: 20 mg Bisacodyl (Dulcolax 10 Mg Supp) 10 mg RC Q24H PRN PRN Reason: Constipation Stop: 02/10/19 10:59 Last Admin: 12/14/18 05:50 Dose: 10 mg Brimonidine Tartrate (Alphagan 0.1% Ophth Soln) 1 drop EACH EYE TID CAL Stop: 02/10/19 08:59 Last Admin: 12/29/18 16:20 Dose: 1 drop Carvedilol (Coreg) 6.25 mg PO BID [facility] Stop: 02/10/19 08:59 Last Admin: 12/29/18 16:25 Dose: 6.25 mg Dextrose (D50w) 50 ml IVP PRN PRN PRN Reason: Blood Glucose less than 70 Stop: 02/09/19 21:43 Dextrose (Glutose 40%) 18.75 gm PO PRN PRN PRN Reason: BS below 70 & tolerate po Stop: 02/09/19 21:43 Docusate Sodium (Colace) 100 mg PO BID [facility] Stop: 02/10/19 08:59 Last Admin: 12/29/18 16:22 Dose: 100 mg Duloxetine HCl (Cymbalta) 60 mg PO DAILY [facility]; Protocol Stop: 02/10/19 08:59 Last Admin: 12/29/18 09:18 Dose: 60 mg Fluticasone Propionate (Flonase) 1 spr NS DAILY [facility] Stop: 02/10/19 08:59 Last Admin: 12/29/18 09:19 Dose: 1 spr Furosemide (Lasix) 20 mg PO BID [facility] Stop: 02/10/19 08:59 Last Admin: 12/29/18 16:27 Dose: 20 mg Glucagon (Glucagen) 1 mg IM PRN PRN PRN Reason: BS below 70&dextrose ineffecti Stop: 02/09/19 21:43 Haloperidol Decanoate (Haldol Dec) 50 mg IM QMONTH [facility]; Protocol Stop: 02/23/19 21:19 Last Admin: 12/25/18 21:47 Dose: 50 mg Haloperidol Lactate (Haldol Concentrate 10mg/5ml Susp) 7.5 mg PO BID [facility]; Protocol Stop: 02/17/19 08:59 Last Admin: 12/29/18 16:17 Dose: Not Given Hydralazine HCl (Apresoline) 10 mg PO BID [facility] Stop: 02/10/19 08:59 Last Admin: 12/29/18 16:31 Dose: 10 mg Ibuprofen (Motrin) 600 mg PO Q8H PRN PRN Reason: for breakthrough pain Stop: 02/10/19 08:18 Last Admin: 12/29/18 16:28 Dose: 600 mg Insulin Glargine (Lantus Insulin) 26 units SUBQ HS [facility] Stop: 02/13/19 20:59 Last Admin: 12/28/18 21:12 Dose: 26 units Insulin Human Lispro (Humalog Insulin Sliding Scale) 0 units SUBQ ACHS [facility]; Protocol Stop: 02/09/19 21:59 Last Admin: 12/29/18 11:56 Dose: 6 units Ipratropium [place] (Atrovent Neb 0.5mg/2.5ml) 0.5 mg HHN Q4HRT [facility] Stop: 02/09/19 22:59 Last Admin: 12/29/18 20:05 Dose: 0.5 mg Isosorbide Dinitrate (Isordil) 10 mg PO Q8H [facility] Stop: 02/10/19 08:29 Last Admin: 12/29/18 16:16 Dose: 10 mg Latanoprost (Xalatan 0.005% Ophth Soln) 1 drop EACH EYE [facility] Stop: 02/10/19 20:59 Last Admin: 12/28/18 21:10 Dose: 1 drop Levothyroxine Sodium (Synthroid) 0.075 mg PO DAILY [facility] Stop: 02/10/19 08:59 Last Admin: 12/29/18 09:18 Dose: 0.075 mg Loratadine (Claritin) 10 mg PO DAILY [facility] Stop: 02/10/19 08:59 Last Admin: 12/29/18 09:18 Dose: 10 mg Lorazepam (Ativan) 0.5 mg PO Q4HR PRN; Protocol PRN Reason: Anxiety Stop: 01/11/19 02:34 Last Admin: 12/27/18 23:08 Dose: 0.5 mg Losartan Potassium (Cozaar) 50 mg PO DAILY [facility] Stop: 02/10/19 08:59 Last Admin: 12/29/18 09:16 Dose: 50 mg Magnesium Hydroxide (Milk Of Magnesia) 30 ml PO DAILY PRN PRN Reason: Constipation Stop: 02/09/19 21:38 Last Admin: 12/29/18 16:29 Dose: 30 ml Nitroglycerin (Nitrostat) 0.4 mg SL Q5MIN PRN PRN Reason: CHEST PAIN Stop: 02/19/19 15:47 Last Admin: 12/22/18 18:08 Dose: 0.4 mg Nystatin (Nystop) 100 units TP BID [facility] Stop: 02/25/19 16:59 Last Admin: 12/29/18 16:31 Dose: 100 units Nystatin (Mycostatin Cream) 1 appl TP Q12HR [facility] Stop: 02/25/19 20:59 Last Admin: 12/29/18 09:19 Dose: 1 appl Ondansetron HCl (Zofran Odt) 4 mg PO Q6H PRN PRN Reason: nausea and vomiting Last Admin: 12/27/18 07:45 Dose: 4 mg Oxycodone/Acetaminophen (Percocet 5/325mg Oral Tab) 1 tab PO Q6H [facility] Stop: 02/10/19 08:59 Last Admin: 12/29/18 16:22 Dose: 1 tab Senna (Senna) 17.2 mg PO HS [facility] Stop: 02/10/19 20:59 Last Admin: 12/28/18 21:10 Dose: 17.2 mg Sodium Phosphate (Fleet Enema) 135 ml RC DAILY PRN PRN Reason: Constipation Stop: 02/10/19 08:18 Vitamin B Complex/Vit C/Folic Acid (Vitamin B Complex W/Vitamin C) 1 tab PO DAILY [facility] Stop: 02/10/19 08:59 Last Admin: 12/29/18 09:18 Dose: 1 tab Zolpidem Tartrate (Ambien) 5 mg PO HS PRN PRN Reason: Insomnia Stop: 02/17/19 14:30 General: No acute distress HEENT: Atraumatic, PERRLA Neck: Supple, JVD, Thyromegaly Cardiovascular: Regular rate, Normal S1, Normal S2 Lungs: Clear to auscultation Abdomen: Bowel sounds, Soft Assessment/Plan - Assessment Assessment: 1.UTI. 2.HTN. 3.DM. 4.PSYCHOSIS - Plan Plan: continue current treatment Nutritional Asmnt/Malnutr-PDOC - Dietary Evaluation Malnutrition Findings (Please click <Entered> for more info): Nutritional Asmnt/Malnutrition Start: 12/13/18 20: 14 Text: Status: Active Freq: Protocol: Document 12/13/18 20:14 [email or web address] (Rec: 12/13/18 20:40 [email or web address]) Nutritional Asmnt/Malnutrition Patient General Information Nutritional Screening Moderate Risk Diagnosis psychosis Pertinent Medical Hx/Surgical Hx HTN, DM Subjective Information Pt seen sitting up in bed, eating dinner, says she has a poor appetite and her nose hurts, dislikes the pureed foods & would prefer chopped foods, says she dislikes corn, rice, and spicy foods. Likes chocolate flavors. Pt appears to be edentulous. Current Diet Order/ Nutrition Support Pureed/standard carb- 60 Patient / S.O Not Indicated Pertinent Medications lipitor, dulcolax, coreg, colace, insulin, milk of magnesia, senna, vitamin B complex w/vitamin C/folic acid Pertinent Labs POC Glucose 369 mg/dL Nutritional Hx/Data Height 1.75 m Height (Calculated Centimeters) 175.3 Current Weight (lbs) 140.614 kg Weight (Calculated Kilograms) 140.6 Weight (Calculated Grams) 947014.6 [place] Body Weight 145 lbs, 65.9 kg % [place] Body Weight 214 Body Mass Index (BMI) 45.8 Weight Status Morbidly Obese GI Symptoms GI Symptoms None Difficult in: Chewing Food Allergies No Current %PO Good (75-100%) Estimated Nutritional Goals BEE in Kcals: Using Current wt Calories/Kcals/Kg 15 Kcals Calculated 2115 Protein: Using Current wt Protein g/k.8-1 Protein Calculated 113-141 Fluid: ml 2115 ml (1 ml/kcal) Nutritional Problem 1. Problem Problem Altered nutrition related laboratory values- poc glucose - related to impaired glycemic control as evidenced by poc glucose 369. Intervention/Recommendation Comments continue current diet rx. patient may benefit from heart healthy (low fat/low sodium/ low cholesterol), consistent carbohydrate diet upon discharge. Expected Outcomes/Goals Expected Outcomes/Goals 1- poc glucose trending down from 369 2- maintain po intakes >75% of all meals Electronically Signed By: Jaye Mcbride, MPH, RDN Clinical Dietitian 12/13/2018 8:41 PM
[2018-12-29] MEDS: Insulin Glargine 100 units/ml 10ml Vial SUBQ SCH (21:27)
--- NOTE | 2018-12-29 21:54 | Progress Notes ---
DATE: 12/29/2018 Case discussed with staff of the patient, reviewed records. This ____ I have seen him before covering for Dr. Velazquez. The patient continues to be anxious, demanding. She is in the room by herself. Continues to be restless, depressed, mood swings, irritability, but in general, she is reportedly calmer. She continues to be paranoid at times not taking all her medications. No side effects of the medication, no sedation, no nausea. Continues to be depressed, overwhelmed and we will continue to work with the patient in group therapy, milieu therapy, and adjust the medications as needed. JOB# [id number]
[2018-12-29] MEDS: Atorvastatin Calcium 10 MG TAB PO SCH (21:58)
[2018-12-30] MEDS: APAP/Oxycodone 5/325mg Tab PO SCH ×4 (03:00→21:00)
[2018-12-30] MEDS: Ipratropium Neb 0.5 mg/2.5 mL UD HHN SCH ×6 (03:32→22:02)
[2018-12-30] MEDS: INSULIN LISPRO SLIDING SCALE 100 UNITS/ML UNIT SUBQ SCH ×4 (06:46→21:32)
[2018-12-30] MEDS: Albuterol Nebulizer 2.5mg/3mL HHN PRN (07:03)
[2018-12-30] MEDS: Fluticasone Propionate Nasal 1 SPR SPR NS SCH (09:00)
[2018-12-30] MEDS: Vitamin B Complex w/Vitamin C Tab PO SCH (09:09)
[2018-12-30] MEDS: Levothyroxine 0.075 Mg Tab PO SCH (09:10)
--- NOTE | 2018-12-30 11:43 | General Progress Note ---
Subjective - Review of Systems Service Date: 12/30/18 Subjective: awake and alert no distress Objective - Results Recent Labs: Laboratory Last Values POC Glucose 204 MG/DL (70 - 105) H 12/21/18 11:38 Triglycerides 336 mg/dL (<150) H 12/12/18 07:10 Cholesterol 174 mg/dL (<200) 12/12/18 07:10 LDL Cholesterol Direct 98 mg/dL (75-193) 12/12/18 07:10 HDL Cholesterol 30 mg/dL (23-92) 12/12/18 07:10 - Physical Exam Vitals and I&O: Vital Signs Temp 98.3 F 12/30/18 06:51 Pulse 80 12/30/18 10:47 Resp 18 12/30/18 10:47 BP 162/71 12/30/18 09:10 Pulse Ox 96 12/30/18 10:47 Intake & Output 12/29/18 12/30/18 12/30/18 18:59 06:59 18:59 Intake Total 1250 480 Balance 1250 480 Intake: Oral 1250 480 Other: # Voids 2 # Bowel Movements 0 Stool Characteristics Soft Soft Formed Formed Active Medications: Current Medications Acetaminophen (Tylenol Extra Strength) 500 mg PO Q4HR PRN PRN Reason: Pain or Fever >101 Stop: 02/09/19 21:38 Last Admin: 12/17/18 22:25 Dose: 500 mg Albuterol Sulfate (Albuterol 2.5mg/3ml Neb Ud) 2.5 mg HHN Q4H PRN PRN Reason: Shortness of Breath or Wheeze Stop: 02/09/19 21:38 Last Admin: 12/30/18 07:03 Dose: 2.5 mg Aripiprazole (Abilify) 20 mg PO DAILY [facility]; Protocol Stop: 02/12/19 08:59 Last Admin: 12/29/18 09:14 Dose: Not Given Aspirin (Ecotrin) 81 mg PO DAILY [facility] Stop: 02/10/19 08:59 Last Admin: 12/30/18 09:07 Dose: 81 mg Atorvastatin Calcium (Lipitor) 20 mg PO HS [facility] Stop: 02/10/19 20:59 Last Admin: 12/29/18 21:58 Dose: 20 mg Bisacodyl (Dulcolax 10 Mg Supp) 10 mg RC Q24H PRN PRN Reason: Constipation Stop: 02/10/19 10:59 Last Admin: 12/14/18 05:50 Dose: 10 mg Brimonidine Tartrate (Alphagan 0.1% Ophth Soln) 1 drop EACH EYE TID [facility] Stop: 02/10/19 08:59 Last Admin: 12/29/18 21:00 Dose: 1 drop Carvedilol (Coreg) 6.25 mg PO BID [facility] Stop: 02/10/19 08:59 Last Admin: 12/30/18 09:10 Dose: 6.25 mg Dextrose (D50w) 50 ml IVP PRN PRN PRN Reason: Blood Glucose less than 70 Stop: 02/09/19 21:43 Dextrose (Glutose 40%) 18.75 gm PO PRN PRN PRN Reason: BS below 70 & tolerate po Stop: 02/09/19 21:43 Docusate Sodium (Colace) 100 mg PO BID [facility] Stop: 02/10/19 08:59 Last Admin: 12/30/18 09:10 Dose: 100 mg Duloxetine HCl (Cymbalta) 60 mg PO DAILY [facility]; Protocol Stop: 02/10/19 08:59 Last Admin: 12/29/18 09:18 Dose: 60 mg Fluticasone Propionate (Flonase) 1 spr NS DAILY [facility] Stop: 02/10/19 08:59 Last Admin: 12/29/18 09:19 Dose: 1 spr Furosemide (Lasix) 20 mg PO BID [facility] Stop: 02/10/19 08:59 Last Admin: 12/30/18 09:08 Dose: 20 mg Glucagon (Glucagen) 1 mg IM PRN PRN PRN Reason: BS below 70&dextrose ineffecti Stop: 02/09/19 21:43 Haloperidol Decanoate (Haldol Dec) 50 mg IM QMONTH [facility]; Protocol Stop: 02/23/19 21:19 Last Admin: 12/25/18 21:47 Dose: 50 mg Haloperidol Lactate (Haldol Concentrate 10mg/5ml Susp) 7.5 mg PO BID [facility]; Protocol Stop: 02/17/19 08:59 Last Admin: 12/29/18 16:17 Dose: Not Given Hydralazine HCl (Apresoline) 10 mg PO BID [facility] Stop: 02/10/19 08:59 Last Admin: 12/29/18 16:31 Dose: 10 mg Ibuprofen (Motrin) 600 mg PO Q8H PRN PRN Reason: for breakthrough pain Stop: 02/10/19 08:18 Last Admin: 12/29/18 16:28 Dose: 600 mg Insulin Glargine (Lantus Insulin) 26 units SUBQ HS [facility] Stop: 02/13/19 20:59 Last Admin: 12/29/18 21:27 Dose: Not Given Insulin Human Lispro (Humalog Insulin Sliding Scale) 0 units SUBQ ACHS [facility]; Protocol Stop: 02/09/19 21:59 Last Admin: 12/30/18 06:46 Dose: 6 units Ipratropium [place] (Atrovent Neb 0.5mg/2.5ml) 0.5 mg HHN Q4HRT [facility] Stop: 02/09/19 22:59 Last Admin: 12/30/18 10:47 Dose: 0.5 mg Isosorbide Dinitrate (Isordil) 10 mg PO Q8H [facility] Stop: 02/10/19 08:29 Last Admin: 12/30/18 00:00 Dose: Not Given Latanoprost (Xalatan 0.005% Ophth Soln) 1 drop EACH EYE [facility] Stop: 02/10/19 20:59 Last Admin: 12/29/18 21:59 Dose: 1 drop Levothyroxine Sodium (Synthroid) 0.075 mg PO DAILY [facility] Stop: 02/10/19 08:59 Last Admin: 12/30/18 09:10 Dose: 0.075 mg Loratadine (Claritin) 10 mg PO DAILY [facility] Stop: 02/10/19 08:59 Last Admin: 12/30/18 09:08 Dose: 10 mg Lorazepam (Ativan) 0.5 mg PO Q4HR PRN; Protocol PRN Reason: Anxiety Stop: 01/11/19 02:34 Last Admin: 12/27/18 23:08 Dose: 0.5 mg Losartan Potassium (Cozaar) 50 mg PO DAILY [facility] Stop: 02/10/19 08:59 Last Admin: 12/30/18 09:09 Dose: 50 mg Magnesium Hydroxide (Milk Of Magnesia) 30 ml PO DAILY PRN PRN Reason: Constipation Stop: 02/09/19 21:38 Last Admin: 12/29/18 16:29 Dose: 30 ml Nitroglycerin (Nitrostat) 0.4 mg SL Q5MIN PRN PRN Reason: CHEST PAIN Stop: 02/19/19 15:47 Last Admin: 12/22/18 18:08 Dose: 0.4 mg Nystatin (Nystop) 100 units TP BID [facility] Stop: 02/25/19 16:59 Last Admin: 12/29/18 16:31 Dose: 100 units Nystatin (Mycostatin Cream) 1 appl TP Q12HR [facility] Stop: 02/25/19 20:59 Last Admin: 12/29/18 21:26 Dose: Not Given Ondansetron HCl (Zofran Odt) 4 mg PO Q6H PRN PRN Reason: nausea and vomiting Last Admin: 12/27/18 07:45 Dose: 4 mg Oxycodone/Acetaminophen (Percocet 5/325mg Oral Tab) 1 tab PO Q6H [facility] Stop: 02/10/19 08:59 Last Admin: 12/30/18 09:07 Dose: 1 tab Senna (Senna) 17.2 mg PO HS [facility] Stop: 02/10/19 20:59 Last Admin: 12/29/18 21:58 Dose: 17.2 mg Sodium Phosphate (Fleet Enema) 135 ml RC DAILY PRN PRN Reason: Constipation Stop: 02/10/19 08:18 Vitamin B Complex/Vit C/Folic Acid (Vitamin B Complex W/Vitamin C) 1 tab PO DAILY [facility] Stop: 02/10/19 08:59 Last Admin: 12/30/18 09:09 Dose: 1 tab Zolpidem Tartrate (Ambien) 5 mg PO HS PRN PRN Reason: Insomnia Stop: 02/17/19 14:30 General: No acute distress HEENT: Atraumatic, PERRLA Neck: Supple, JVD, Thyromegaly Cardiovascular: Regular rate, Normal S1, Normal S2 Lungs: Clear to auscultation Abdomen: Bowel sounds, Soft Assessment/Plan - Assessment Assessment: 1.UTI. 2.HTN. 3.DM. 4.PSYCHOSIS - Plan Plan: continue current treatment Nutritional Asmnt/Malnutr-PDOC - Dietary Evaluation Malnutrition Findings (Please click <Entered> for more info): Nutritional Asmnt/Malnutrition Start: 12/13/18 20: 14 Text: Status: Active Freq: Protocol: Document 12/13/18 20:14 [email or web address] (Rec: 12/13/18 20:40 [email or web address]) Nutritional Asmnt/Malnutrition Patient General Information Nutritional Screening Moderate Risk Diagnosis psychosis Pertinent Medical Hx/Surgical Hx HTN, DM Subjective Information Pt seen sitting up in bed, eating dinner, says she has a poor appetite and her nose hurts, dislikes the pureed foods & would prefer chopped foods, says she dislikes corn, rice, and spicy foods. Likes chocolate flavors. Pt appears to be edentulous. Current Diet Order/ Nutrition Support Pureed/standard carb- 60 Patient / S.O Not Indicated Pertinent Medications lipitor, dulcolax, coreg, colace, insulin, milk of magnesia, senna, vitamin B complex w/vitamin C/folic acid Pertinent Labs POC Glucose 369 mg/dL Nutritional Hx/Data Height 1.75 m Height (Calculated Centimeters) 175.3 Current Weight (lbs) 140.614 kg Weight (Calculated Kilograms) 140.6 Weight (Calculated Grams) 739168.6 [place] Body Weight 145 lbs, 65.9 kg % [place] Body Weight 214 Body Mass Index (BMI) 45.8 Weight Status Morbidly Obese GI Symptoms GI Symptoms None Difficult in: Chewing Food Allergies No Current %PO Good (75-100%) Estimated Nutritional Goals BEE in Kcals: Using Current wt Calories/Kcals/Kg 15 Kcals Calculated 2115 Protein: Using Current wt Protein g/k.8-1 Protein Calculated 113-141 Fluid: ml 2115 ml (1 ml/kcal) Nutritional Problem 1. Problem Problem Altered nutrition related laboratory values- poc glucose - related to impaired glycemic control as evidenced by poc glucose 369. Intervention/Recommendation Comments continue current diet rx. patient may benefit from heart healthy (low fat/low sodium/ low cholesterol), consistent carbohydrate diet upon discharge. Expected Outcomes/Goals Expected Outcomes/Goals 1- poc glucose trending down from 369 2- maintain po intakes >75% of all meals Electronically Signed By: Jaye Mcbride, MPH, RDN Clinical Dietitian 12/13/2018 8:41 PM
[2018-12-30] MEDS: Haldol Oral Sol.(concentrate) 10 mg/5 mL Udc PO SCH ×2 (12:03→18:28)
[2018-12-30] MEDS: NYSTATIN 100000 UNITS/GM POWD TP SCH ×2 (12:05→18:41)
[2018-12-30] MEDS: Nystatin Cream 100,000 u/gm Cream 15 gm TP SCH ×2 (12:05→21:00)
[2018-12-30] MEDS: Atorvastatin Calcium 10 MG TAB PO SCH (21:14)
[2018-12-30] MEDS: Insulin Glargine 100 units/ml 10ml Vial SUBQ SCH (21:30)
--- NOTE | 2018-12-30 23:50 | Progress Notes ---
DATE: 12/30/2018 FOLLOWUP PROGRESS NOTE Case was discussed with staff of the patient, reviewed records. The patient continues to isolate herself. Continues to be unpredictable, impulsive, needing redirection, demanding, restless with sims, irritable. No side effects with the medication, no sedation, no nausea and no extrapyramidal symptoms. She did get Haldol Decanoate on 12/25/2018, 50 mg intramuscular. She is also on Haldol 7.5 mg twice a day with no side effects, no sedation, no nausea and no extrapyramidal symptoms. We will continue to work with the patient in group therapy, milieu therapy and adjust the medication as needed. JOB# [id number]
[2018-12-31] MEDS: Ipratropium Neb 0.5 mg/2.5 mL UD HHN SCH ×6 (02:26→23:17)
[2018-12-31] MEDS: APAP/Oxycodone 5/325mg Tab PO SCH ×4 (02:44→21:47)
[2018-12-31] MEDS: INSULIN LISPRO SLIDING SCALE 100 UNITS/ML UNIT SUBQ SCH ×4 (06:45→21:48)
[2018-12-31] MEDS: Vitamin B Complex w/Vitamin C Tab PO SCH (08:43)
[2018-12-31] MEDS: Haldol Oral Sol.(concentrate) 10 mg/5 mL Udc PO SCH (08:45)
[2018-12-31] MEDS: Magnesium Hydroxide (MOM) 30 mL UDC PO PRN (09:54)
[2018-12-31] MEDS: Levothyroxine 0.075 Mg Tab PO SCH (09:58)
[2018-12-31] MEDS: Fluticasone Propionate Nasal 1 SPR SPR NS SCH (09:58)
[2018-12-31] MEDS: NYSTATIN 100000 UNITS/GM POWD TP SCH (09:58)
[2018-12-31] MEDS: Nystatin Cream 100,000 u/gm Cream 15 gm TP SCH ×2 (09:58→21:48)
--- NOTE | 2018-12-31 20:55 | Progress Notes ---
DATE: 12/31/2018 SUBJECTIVE: Case was discussed with staff of the patient, reviewed treatment plans and goals. The patient has been staying in bed. Apparently, the nursing facility where she came from is not willing to take care and the staff is having hard time placing her. The patient continues to be unpredictable, impulsive, needing redirection, and needing help, the family can take care of her the way she is acting and tried to place her on any other place ____ staff to get the outpatient case manager to call the nursing facility and tell them that they had to take her back. We will continue to work with the patient in group therapy, milieu therapy, and adjust the medications as needed. JOB# [id number]
--- NOTE | 2018-12-31 21:13 | Internal Medicine Prog Note ---
Internal Medicine Subjective - Subjective Service Date: 12/31/18 Patient seen and examined:: with staff (she feels well) Patient is:: awake, verbal, in bed, talking, confused Per staff patient has:: no adverse event Internal Medicine Objective - Results Recent Labs: Laboratory Last Values POC Glucose 204 MG/DL (70 - 105) H 12/21/18 11:38 Triglycerides 336 mg/dL (<150) H 12/12/18 07:10 Cholesterol 174 mg/dL (<200) 12/12/18 07:10 LDL Cholesterol Direct 98 mg/dL (75-193) 12/12/18 07:10 HDL Cholesterol 30 mg/dL (23-92) 12/12/18 07:10 - Physical Exam Vitals and I&O: Vital Signs Temp 99.3 F 12/31/18 20:06 Pulse 94 12/31/18 20:06 Resp 20 12/31/18 20:06 BP 150/91 12/31/18 20:06 Pulse Ox 99 12/31/18 19:04 Intake & Output 12/31/18 12/31/18 01/01/19 06:59 18:59 06:59 Intake Total 240 800 240 Balance 240 800 240 Intake: Oral 240 800 240 Other: # Voids 2 6 2 # Bowel Movements 2 Stool Characteristics Soft Formed Active Medications: Current Medications Acetaminophen (Tylenol Extra Strength) 500 mg PO Q4HR PRN PRN Reason: Pain or Fever >101 Stop: 02/09/19 21:38 Last Admin: 12/17/18 22:25 Dose: 500 mg Albuterol Sulfate (Albuterol 2.5mg/3ml Neb Ud) 2.5 mg HHN Q4H PRN PRN Reason: Shortness of Breath or Wheeze Stop: 02/09/19 21:38 Last Admin: 12/30/18 07:03 Dose: 2.5 mg Aripiprazole (Abilify) 20 mg PO DAILY [facility]; Protocol Stop: 02/12/19 08:59 Last Admin: 12/31/18 09:58 Dose: Not Given Aspirin (Ecotrin) 81 mg PO DAILY [facility] Stop: 02/10/19 08:59 Last Admin: 12/31/18 08:43 Dose: 81 mg Atorvastatin Calcium (Lipitor) 20 mg PO [facility] Stop: 02/10/19 20:59 Last Admin: 12/30/18 21:14 Dose: 20 mg Bisacodyl (Dulcolax 10 Mg Supp) 10 mg RC Q24H PRN PRN Reason: Constipation Stop: 02/10/19 10:59 Last Admin: 12/14/18 05:50 Dose: 10 mg Brimonidine Tartrate (Alphagan 0.1% Ophth Soln) 1 drop EACH EYE TID CAL Stop: 02/10/19 08:59 Last Admin: 12/31/18 16:09 Dose: Not Given Carvedilol (Coreg) 6.25 mg PO BID [facility] Stop: 02/10/19 08:59 Last Admin: 12/31/18 08:44 Dose: 6.25 mg Dextrose (D50w) 50 ml IVP PRN PRN PRN Reason: Blood Glucose less than 70 Stop: 02/09/19 21:43 Dextrose (Glutose 40%) 18.75 gm PO PRN PRN PRN Reason: BS below 70 & tolerate po Stop: 02/09/19 21:43 Docusate Sodium (Colace) 100 mg PO BID [facility] Stop: 02/10/19 08:59 Last Admin: 12/31/18 08:43 Dose: 100 mg Duloxetine HCl (Cymbalta) 60 mg PO DAILY [facility]; Protocol Stop: 02/10/19 08:59 Last Admin: 12/31/18 09:58 Dose: Not Given Fluticasone Propionate (Flonase) 1 spr NS DAILY [facility] Stop: 02/10/19 08:59 Last Admin: 12/31/18 09:58 Dose: Not Given Furosemide (Lasix) 20 mg PO BID [facility] Stop: 02/10/19 08:59 Last Admin: 12/31/18 08:43 Dose: 20 mg Glucagon (Glucagen) 1 mg IM PRN PRN PRN Reason: BS below 70&dextrose ineffecti Stop: 02/09/19 21:43 Haloperidol Decanoate (Haldol Dec) 50 mg IM QMONTH CAL; Protocol Stop: 02/23/19 21:19 Last Admin: 12/25/18 21:47 Dose: 50 mg Haloperidol Lactate (Haldol Concentrate 10mg/5ml Susp) 7.5 mg PO BID [facility]; Protocol Stop: 02/17/19 08:59 Last Admin: 12/31/18 08:45 Dose: 7.5 mg Hydralazine HCl (Apresoline) 10 mg PO BID [facility] Stop: 02/10/19 08:59 Last Admin: 12/31/18 09:58 Dose: Not Given Ibuprofen (Motrin) 600 mg PO Q8H PRN PRN Reason: for breakthrough pain Stop: 02/10/19 08:18 Last Admin: 12/29/18 16:28 Dose: 600 mg Insulin Glargine (Lantus Insulin) 26 units SUBQ HS [facility] Stop: 02/13/19 20:59 Last Admin: 12/30/18 21:30 Dose: 26 units Insulin Human Lispro (Humalog Insulin Sliding Scale) 0 units SUBQ ACHS [facility]; Protocol Stop: 02/09/19 21:59 Last Admin: 12/31/18 17:07 Dose: 8 units Ipratropium [place] (Atrovent Neb 0.5mg/2.5ml) 0.5 mg HHN Q4HRT [facility] Stop: 02/09/19 22:59 Last Admin: 12/31/18 19:02 Dose: 0.5 mg Isosorbide Dinitrate (Isordil) 10 mg PO Q8H [facility] Stop: 02/10/19 08:29 Last Admin: 12/31/18 08:44 Dose: 10 mg Latanoprost (Xalatan 0.005% Oph Soln) 1 drop EACH EYE [facility] Stop: 02/10/19 20:59 Last Admin: 12/30/18 21:27 Dose: Not Given Levothyroxine Sodium (Synthroid) 0.075 mg PO DAILY [facility] Stop: 02/10/19 08:59 Last Admin: 12/31/18 09:58 Dose: Not Given Loratadine (Claritin) 10 mg PO DAILY [facility] Stop: 02/10/19 08:59 Last Admin: 12/31/18 09:58 Dose: Not Given Lorazepam (Ativan) 0.5 mg PO Q4HR PRN; Protocol PRN Reason: Anxiety Stop: 01/11/19 02:34 Last Admin: 12/31/18 06:44 Dose: 0.5 mg Losartan Potassium (Cozaar) 50 mg PO DAILY [facility] Stop: 02/10/19 08:59 Last Admin: 12/31/18 08:45 Dose: 50 mg Magnesium Hydroxide (Milk Of Magnesia) 30 ml PO DAILY PRN PRN Reason: Constipation Stop: 02/09/19 21:38 Last Admin: 12/31/18 09:54 Dose: 30 ml Nitroglycerin (Nitrostat) 0.4 mg SL Q5MIN PRN PRN Reason: CHEST PAIN Stop: 02/19/19 15:47 Last Admin: 12/22/18 18:08 Dose: 0.4 mg Nystatin (Nystop) 100 units TP BID CAL Stop: 02/25/19 16:59 Last Admin: 12/31/18 09:58 Dose: 100 units Nystatin (Mycostatin Cream) 1 appl TP Q12HR CAL Stop: 02/25/19 20:59 Last Admin: 12/31/18 09:58 Dose: 1 appl Ondansetron HCl (Zofran Odt) 4 mg PO Q6H PRN PRN Reason: nausea and vomiting Last Admin: 12/27/18 07:45 Dose: 4 mg Oxycodone/Acetaminophen (Percocet 5/325mg Oral Tab) 1 tab PO Q6H CAL Stop: 02/10/19 08:59 Last Admin: 12/31/18 14:07 Dose: 1 tab Senna (Senna) 17.2 mg PO HS CAL Stop: 02/10/19 20:59 Last Admin: 12/30/18 21:00 Dose: 17.2 mg Sodium Phosphate (Fleet Enema) 135 ml RC DAILY PRN PRN Reason: Constipation Stop: 02/10/19 08:18 Vitamin B Complex/Vit C/Folic Acid (Vitamin B Complex W/Vitamin C) 1 tab PO DAILY [facility] Stop: 02/10/19 08:59 Last Admin: 12/31/18 08:43 Dose: 1 tab Zolpidem Tartrate (Ambien) 5 mg PO HS PRN PRN Reason: Insomnia Stop: 02/17/19 14:30 General: alert, demented, obese HEENT: NC/AT, PERRLA, EOMI, anicteric sclerae, throat clear Neck: Supple, No JVD, No thyromegaly, +2 carotid pulse wo bruit, No LAD Lungs: CTAB Cardiovascular: RRR, Normal S1, Normal S2, without murmur Abdomen: soft, non-tender, non-distended Extremities: clear Neurological: no change Internal Medicine Assmt/Plan - Assessment Assessment: 1.HTN 2.DJD. 3.DM. 4.PSYCHOSIS - Plan Plan: CONTINUE ON CURRENT MEDICATION AND DIET. Nutritional Asmnt/Malnutr-PDOC - Dietary Evaluation Malnutrition Findings (Please click <Entered> for more info): Nutritional Asmnt/Malnutrition Start: 12/13/18 20: 14 Text: Status: Active Freq: Protocol: Document 12/13/18 20:14 [email or web address] (Rec: 12/13/18 20:40 [email or web address]) Nutritional Asmnt/Malnutrition Patient General Information Nutritional Screening Moderate Risk Diagnosis psychosis Pertinent Medical Hx/Surgical Hx HTN, DM Subjective Information Pt seen sitting up in bed, eating dinner, says she has a poor appetite and her nose hurts, dislikes the pureed foods & would prefer chopped foods, says she dislikes corn, rice, and spicy foods. Likes chocolate flavors. Pt appears to be edentulous. Current Diet Order/ Nutrition Support Pureed/standard carb- 60 Patient / S.O Not Indicated Pertinent Medications lipitor, dulcolax, coreg, colace, insulin, milk of magnesia, senna, vitamin B complex w/vitamin C/folic acid Pertinent Labs POC Glucose 369 mg/dL Nutritional Hx/Data Height 1.75 m Height (Calculated Centimeters) 175.3 Current Weight (lbs) 140.614 kg Weight (Calculated Kilograms) 140.6 Weight (Calculated Grams) 936450.6 [place] Body Weight 145 lbs, 65.9 kg % [place] Body Weight 214 Body Mass Index (BMI) 45.8 Weight Status Morbidly Obese GI Symptoms GI Symptoms None Difficult in: Chewing Food Allergies No Current %PO Good (75-100%) Estimated Nutritional Goals BEE in Kcals: Using Current wt Calories/Kcals/Kg 15 Kcals Calculated 5 Protein: Using Current wt Protein g/k.8-1 Protein Calculated 113-141 Fluid: ml 2115 ml (1 ml/kcal) Nutritional Problem 1. Problem Problem Altered nutrition related laboratory values- poc glucose - related to impaired glycemic control as evidenced by poc glucose 369. Intervention/Recommendation Comments continue current diet rx. patient may benefit from heart healthy (low fat/low sodium/ low cholesterol), consistent carbohydrate diet upon discharge. Expected Outcomes/Goals Expected Outcomes/Goals 1- poc glucose trending down from 369 2- maintain po intakes >75% of all meals Electronically Signed By: Jaye Mcbride, MPH, RDN Clinical Dietitian 12/13/2018 8:41 PM
[2018-12-31] MEDS: Atorvastatin Calcium 10 MG TAB PO SCH (21:47)
[2018-12-31] MEDS: Insulin Glargine 100 units/ml 10ml Vial SUBQ SCH (21:51)
[2019-01-01] MEDS: Ipratropium Neb 0.5 mg/2.5 mL UD HHN SCH ×6 (02:37→23:04)
[2019-01-01] MEDS: APAP/Oxycodone 5/325mg Tab PO SCH ×4 (03:22→21:40)
[2019-01-01] MEDS: INSULIN LISPRO SLIDING SCALE 100 UNITS/ML UNIT SUBQ SCH ×4 (06:52→21:39)
[2019-01-01] MEDS: Haldol Oral Sol.(concentrate) 10 mg/5 mL Udc PO SCH ×3 (08:51→16:41)
[2019-01-01] MEDS: Vitamin B Complex w/Vitamin C Tab PO SCH (08:51)
[2019-01-01] MEDS: Levothyroxine 0.075 Mg Tab PO SCH (08:54)
[2019-01-01] MEDS: Fluticasone Propionate Nasal 1 SPR SPR NS SCH (08:55)
[2019-01-01] MEDS: NYSTATIN 100000 UNITS/GM POWD TP SCH ×2 (08:55→16:04)
[2019-01-01] MEDS: Nystatin Cream 100,000 u/gm Cream 15 gm TP SCH ×2 (08:56→21:42)
[2019-01-01] MEDS: Magnesium Hydroxide (MOM) 30 mL UDC PO PRN (16:41)
--- NOTE | 2019-01-01 21:14 | Internal Medicine Prog Note ---
Internal Medicine Subjective - Subjective Service Date: 01/01/19 Patient seen and examined:: with staff (SHE FEELS GOOD) Patient is:: awake, verbal, in bed, talking, confused Per staff patient has:: no adverse event Internal Medicine Objective - Results Recent Labs: Laboratory Last Values POC Glucose 204 MG/DL (70 - 105) H 12/21/18 11:38 Triglycerides 336 mg/dL (<150) H 12/12/18 07:10 Cholesterol 174 mg/dL (<200) 12/12/18 07:10 LDL Cholesterol Direct 98 mg/dL (75-193) 12/12/18 07:10 HDL Cholesterol 30 mg/dL (23-92) 12/12/18 07:10 - Physical Exam Vitals and I&O: Vital Signs Temp 0 F 01/01/19 19:45 Pulse 107 01/01/19 18:47 Resp 18 01/01/19 18:47 BP 118/52 01/01/19 08:56 Pulse Ox 98 01/01/19 18:47 Intake & Output 01/01/19 01/01/19 01/02/19 06:59 18:59 06:59 Intake Total 240 1650 120 Balance 240 1650 120 Intake: Oral 240 1650 120 Other: # Voids 2 3 # Bowel Movements 1 0 Active Medications: Current Medications Acetaminophen (Tylenol Extra Strength) 500 mg PO Q4HR PRN PRN Reason: Pain or Fever >101 Stop: 02/09/19 21:38 Last Admin: 12/17/18 22:25 Dose: 500 mg Albuterol Sulfate (Albuterol 2.5mg/3ml Neb Ud) 2.5 mg HHN Q4H PRN PRN Reason: Shortness of Breath or Wheeze Stop: 02/09/19 21:38 Last Admin: 12/30/18 07:03 Dose: 2.5 mg Aripiprazole (Abilify) 20 mg PO DAILY [facility]; Protocol Stop: 02/12/19 08:59 Last Admin: 01/01/19 08:52 Dose: Not Given Aspirin (Ecotrin) 81 mg PO DAILY [facility] Stop: 02/10/19 08:59 Last Admin: 01/01/19 08:53 Dose: 81 mg Atorvastatin Calcium (Lipitor) 20 mg PO HS [facility] Stop: 02/10/19 20:59 Last Admin: 12/31/18 21:47 Dose: 20 mg Bisacodyl (Dulcolax 10 Mg Supp) 10 mg RC Q24H PRN PRN Reason: Constipation Stop: 02/10/19 10:59 Last Admin: 12/14/18 05:50 Dose: 10 mg Brimonidine Tartrate (Alphagan 0.1% Ophth Soln) 1 drop EACH EYE TID [facility] Stop: 02/10/19 08:59 Last Admin: 01/01/19 15:20 Dose: Not Given Carvedilol (Coreg) 6.25 mg PO BID [facility] Stop: 02/10/19 08:59 Last Admin: 01/01/19 16:04 Dose: Not Given Dextrose (D50w) 50 ml IVP PRN PRN PRN Reason: Blood Glucose less than 70 Stop: 02/09/19 21:43 Dextrose (Glutose 40%) 18.75 gm PO PRN PRN PRN Reason: BS below 70 & tolerate po Stop: 02/09/19 21:43 Docusate Sodium (Colace) 100 mg PO BID [facility] Stop: 02/10/19 08:59 Last Admin: 01/01/19 16:04 Dose: Not Given Duloxetine HCl (Cymbalta) 60 mg PO DAILY [facility]; Protocol Stop: 02/10/19 08:59 Last Admin: 01/01/19 08:53 Dose: Not Given Fluticasone Propionate (Flonase) 1 spr NS DAILY [facility] Stop: 02/10/19 08:59 Last Admin: 01/01/19 08:55 Dose: Not Given Furosemide (Lasix) 20 mg PO BID [facility] Stop: 02/10/19 08:59 Last Admin: 01/01/19 16:04 Dose: Not Given Glucagon (Glucagen) 1 mg IM PRN PRN PRN Reason: BS below 70&dextrose ineffecti Stop: 02/09/19 21:43 Haloperidol Decanoate (Haldol Dec) 50 mg IM QMONTH [facility]; Protocol Stop: 02/23/19 21:19 Last Admin: 12/25/18 21:47 Dose: 50 mg Haloperidol Lactate (Haldol Concentrate 10mg/5ml Susp) 7.5 mg PO BID [facility]; Protocol Stop: 02/17/19 08:59 Last Admin: 01/01/19 16:41 Dose: 7.5 mg Hydralazine HCl (Apresoline) 10 mg PO BID [facility] Stop: 02/10/19 08:59 Last Admin: 01/01/19 16:04 Dose: Not Given Ibuprofen (Motrin) 600 mg PO Q8H PRN PRN Reason: for breakthrough pain Stop: 02/10/19 08:18 Last Admin: 12/29/18 16:28 Dose: 600 mg Insulin Glargine (Lantus Insulin) 26 units SUBQ HS [facility] Stop: 02/13/19 20:59 Last Admin: 12/31/18 21:51 Dose: 26 units Insulin Human Lispro (Humalog Insulin Sliding Scale) 0 units SUBQ ACHS [facility]; Protocol Stop: 02/09/19 21:59 Last Admin: 01/01/19 17:42 Dose: 8 units Ipratropium [place] (Atrovent Neb 0.5mg/2.5ml) 0.5 mg HHN Q4HRT [facility] Stop: 02/09/19 22:59 Last Admin: 01/01/19 18:46 Dose: 0.5 mg Isosorbide Dinitrate (Isordil) 10 mg PO Q8H [facility] Stop: 02/10/19 08:29 Last Admin: 01/01/19 16:03 Dose: Not Given Latanoprost (Xalatan 0.005% [facility] Sol) 1 drop EACH EYE [facility] Stop: 02/10/19 20:59 Last Admin: 12/31/18 21:48 Dose: 1 drop Levothyroxine Sodium (Synthroid) 0.075 mg PO DAILY [facility] Stop: 02/10/19 08:59 Last Admin: 01/01/19 08:54 Dose: Not Given Loratadine (Claritin) 10 mg PO DAILY [facility] Stop: 02/10/19 08:59 Last Admin: 01/01/19 08:54 Dose: 10 mg Lorazepam (Ativan) 0.5 mg PO Q4HR PRN; Protocol PRN Reason: Anxiety Stop: 01/11/19 02:34 Last Admin: 01/01/19 16:41 Dose: 0.5 mg Losartan Potassium (Cozaar) 50 mg PO DAILY [facility] Stop: 02/10/19 08:59 Last Admin: 01/01/19 08:55 Dose: Not Given Magnesium Hydroxide (Milk Of Magnesia) 30 ml PO DAILY PRN PRN Reason: Constipation Stop: 02/09/19 21:38 Last Admin: 01/01/19 16:41 Dose: 30 ml Nitroglycerin (Nitrostat) 0.4 mg SL Q5MIN PRN PRN Reason: CHEST PAIN Stop: 02/19/19 15:47 Last Admin: 12/22/18 18:08 Dose: 0.4 mg Nystatin (Nystop) 100 units TP BID [facility] Stop: 02/25/19 16:59 Last Admin: 01/01/19 16:04 Dose: Not Given Nystatin (Mycostatin Cream) 1 appl TP Q12HR [facility] Stop: 02/25/19 20:59 Last Admin: 01/01/19 08:56 Dose: Not Given Ondansetron HCl (Zofran Odt) 4 mg PO Q6H PRN PRN Reason: nausea and vomiting Last Admin: 12/27/18 07:45 Dose: 4 mg Oxycodone/Acetaminophen (Percocet 5/325mg Oral Tab) 1 tab PO Q6H [facility] Stop: 02/10/19 08:59 Last Admin: 01/01/19 15:19 Dose: 1 tab Senna (Senna) 17.2 mg PO HS [facility] Stop: 02/10/19 20:59 Last Admin: 12/31/18 21:47 Dose: 17.2 mg Sodium Phosphate (Fleet Enema) 135 ml RC DAILY PRN PRN Reason: Constipation Stop: 02/10/19 08:18 Vitamin B Complex/Vit C/Folic Acid (Vitamin B Complex W/Vitamin C) 1 tab PO DAILY [facility] Stop: 02/10/19 08:59 Last Admin: 01/01/19 08:51 Dose: 1 tab Zolpidem Tartrate (Ambien) 5 mg PO HS PRN PRN Reason: Insomnia Stop: 02/17/19 14:30 General: alert, demented, obese HEENT: NC/AT, PERRLA, EOMI, anicteric sclerae, throat clear Neck: Supple, No JVD, No thyromegaly, +2 carotid pulse wo bruit, No LAD Lungs: CTAB Cardiovascular: RRR, Normal S1, Normal S2, without murmur Abdomen: soft, non-tender, non-distended Extremities: clear Neurological: no change Internal Medicine Assmt/Plan - Assessment Assessment: 1.HTN 2.DJD. 3.DM. 4.PSYCHOSIS - Plan Plan: CONTINUE ON CURRENT MEDICATION AND DIET. Nutritional Asmnt/Malnutr-PDOC - Dietary Evaluation Malnutrition Findings (Please click <Entered> for more info): Nutritional Asmnt/Malnutrition Start: 12/13/18 20: 14 Text: Status: Active Freq: Protocol: Document 12/13/18 20:14 [email or web address] (Rec: 12/13/18 20:40 [email or web address]) Nutritional Asmnt/Malnutrition Patient General Information Nutritional Screening Moderate Risk Diagnosis psychosis Pertinent Medical Hx/Surgical Hx HTN, DM Subjective Information Pt seen sitting up in bed, eating dinner, says she has a poor appetite and her nose hurts, dislikes the pureed foods & would prefer chopped foods, says she dislikes corn, rice, and spicy foods. Likes chocolate flavors. Pt appears to be edentulous. Current Diet Order/ Nutrition Support Pureed/standard carb- 60 Patient / S.O Not Indicated Pertinent Medications lipitor, dulcolax, coreg, colace, insulin, milk of magnesia, senna, vitamin B complex w/vitamin C/folic acid Pertinent Labs POC Glucose 369 mg/dL Nutritional Hx/Data Height 1.75 m Height (Calculated Centimeters) 175.3 Current Weight (lbs) 140.614 kg Weight (Calculated Kilograms) 140.6 Weight (Calculated Grams) 187793.6 [place] Body Weight 145 lbs, 65.9 kg % [place] Body Weight 214 Body Mass Index (BMI) 45.8 Weight Status Morbidly Obese GI Symptoms GI Symptoms None Difficult in: Chewing Food Allergies No Current %PO Good (75-100%) Estimated Nutritional Goals BEE in Kcals: Using Current wt Calories/Kcals/Kg 15 Kcals Calculated 2115 Protein: Using Current wt Protein g/k.8-1 Protein Calculated 113-141 Fluid: ml 2115 ml (1 ml/kcal) Nutritional Problem 1. Problem Problem Altered nutrition related laboratory values- poc glucose - related to impaired glycemic control as evidenced by poc glucose 369. Intervention/Recommendation Comments continue current diet rx. patient may benefit from heart healthy (low fat/low sodium/ low cholesterol), consistent carbohydrate diet upon discharge. Expected Outcomes/Goals Expected Outcomes/Goals 1- poc glucose trending down from 369 2- maintain po intakes >75% of all meals Electronically Signed By: Jaye Mcbride, MPH, RDN Clinical Dietitian 12/13/2018 8:41 PM
[2019-01-01] MEDS: Insulin Glargine 100 units/ml 10ml Vial SUBQ SCH (21:41)
--- NOTE | 2019-01-02 01:44 | Progress Notes ---
DATE: 01/01/2019 Case was discussed with staff of the patient, reviewed records. The patient is still isolative. She continues to have poor insight, demanding, unpredictable and impulsive, confused, needing redirection. The custodial that she was at is not willing to take her. No side effects of the medication, no sedation, no nausea. We will continue to work with the patient in group therapy, milieu therapy, and adjust the medication as needed. JOB# [id number]
[2019-01-02] MEDS: APAP/Oxycodone 5/325mg Tab PO SCH ×4 (03:15→20:52)
[2019-01-02] MEDS: Ipratropium Neb 0.5 mg/2.5 mL UD HHN SCH ×6 (03:18→22:49)
[2019-01-02] MEDS: INSULIN LISPRO SLIDING SCALE 100 UNITS/ML UNIT SUBQ SCH ×4 (06:58→20:54)
[2019-01-02] MEDS: Haldol Oral Sol.(concentrate) 10 mg/5 mL Udc PO SCH ×2 (09:40→18:33)
[2019-01-02] MEDS: NYSTATIN 100000 UNITS/GM POWD TP SCH ×2 (09:41→18:33)
[2019-01-02] MEDS: Levothyroxine 0.075 Mg Tab PO SCH (09:42)
[2019-01-02] MEDS: Nystatin Cream 100,000 u/gm Cream 15 gm TP SCH ×2 (09:42→20:55)
[2019-01-02] MEDS: Vitamin B Complex w/Vitamin C Tab PO SCH (09:42)
[2019-01-02] MEDS: Fluticasone Propionate Nasal 1 SPR SPR NS SCH (09:42)
[2019-01-02] MEDS: Atorvastatin Calcium 10 MG TAB PO SCH (20:52)
[2019-01-02] MEDS: Insulin Glargine 100 units/ml 10ml Vial SUBQ SCH (20:54)
--- NOTE | 2019-01-02 22:53 | Internal Medicine Prog Note ---
Internal Medicine Subjective - Subjective Service Date: 01/02/19 Patient seen and examined:: without staff Patient is:: awake, verbal, in bed, talking, confused Per staff patient has:: no adverse event Internal Medicine Objective - Results Recent Labs: Laboratory Last Values POC Glucose 204 MG/DL (70 - 105) H 12/21/18 11:38 Triglycerides 336 mg/dL (<150) H 12/12/18 07:10 Cholesterol 174 mg/dL (<200) 12/12/18 07:10 LDL Cholesterol Direct 98 mg/dL (75-193) 12/12/18 07:10 HDL Cholesterol 30 mg/dL (23-92) 12/12/18 07:10 - Physical Exam Vitals and I&O: Vital Signs Temp 99 F 01/02/19 20:00 Pulse 85 01/02/19 22:49 Resp 20 01/02/19 22:49 BP 173/98 01/02/19 20:00 Pulse Ox 96 01/02/19 22:49 Intake & Output 01/02/19 01/02/19 01/03/19 06:59 18:59 06:59 Intake Total 600 1400 Balance 600 1400 Intake: Oral 600 1400 Other: # Voids 1 # Bowel Movements 0 Stool Characteristics Formed Brown Active Medications: Current Medications Acetaminophen (Tylenol Extra Strength) 500 mg PO Q4HR PRN PRN Reason: Pain or Fever >101 Stop: 02/09/19 21:38 Last Admin: 12/17/18 22:25 Dose: 500 mg Albuterol Sulfate (Albuterol 2.5mg/3ml Neb Ud) 2.5 mg HHN Q4H PRN PRN Reason: Shortness of Breath or Wheeze Stop: 02/09/19 21:38 Last Admin: 12/30/18 07:03 Dose: 2.5 mg Aripiprazole (Abilify) 20 mg PO DAILY [facility]; Protocol Stop: 02/12/19 08:59 Last Admin: 01/02/19 09:42 Dose: 20 mg Aspirin (Ecotrin) 81 mg PO DAILY [facility] Stop: 02/10/19 08:59 Last Admin: 01/02/19 09:42 Dose: 81 mg Atorvastatin Calcium (Lipitor) 20 mg PO [facility] Stop: 02/10/19 20:59 Last Admin: 01/02/19 20:52 Dose: 20 mg Bisacodyl (Dulcolax 10 Mg Supp) 10 mg RC Q24H PRN PRN Reason: Constipation Stop: 02/10/19 10:59 Last Admin: 12/14/18 05:50 Dose: 10 mg Brimonidine Tartrate (Alphagan 0.1% Ophth Soln) 1 drop EACH EYE TID [facility] Stop: 02/10/19 08:59 Last Admin: 01/02/19 20:52 Dose: 1 drop Carvedilol (Coreg) 6.25 mg PO BID [facility] Stop: 02/10/19 08:59 Last Admin: 01/02/19 18:33 Dose: Not Given Dextrose (D50w) 50 ml IVP PRN PRN PRN Reason: Blood Glucose less than 70 Stop: 02/09/19 21:43 Dextrose (Glutose 40%) 18.75 gm PO PRN PRN PRN Reason: BS below 70 & tolerate po Stop: 02/09/19 21:43 Docusate Sodium (Colace) 100 mg PO BID [facility] Stop: 02/10/19 08:59 Last Admin: 01/02/19 18:33 Dose: Not Given Duloxetine HCl (Cymbalta) 60 mg PO DAILY [facility]; Protocol Stop: 02/10/19 08:59 Last Admin: 01/02/19 09:42 Dose: Not Given Fluticasone Propionate (Flonase) 1 spr NS DAILY [facility] Stop: 02/10/19 08:59 Last Admin: 01/02/19 09:42 Dose: 1 spr Furosemide (Lasix) 20 mg PO BID [facility] Stop: 02/10/19 08:59 Last Admin: 01/02/19 18:33 Dose: Not Given Glucagon (Glucagen) 1 mg IM PRN PRN PRN Reason: BS below 70&dextrose ineffecti Stop: 02/09/19 21:43 Haloperidol Decanoate (Haldol Dec) 50 mg IM QMONTH [facility]; Protocol Stop: 02/23/19 21:19 Last Admin: 12/25/18 21:47 Dose: 50 mg Haloperidol Lactate (Haldol Concentrate 10mg/5ml Susp) 7.5 mg PO BID [facility]; Protocol Stop: 02/17/19 08:59 Last Admin: 01/02/19 18:33 Dose: Not Given Hydralazine HCl (Apresoline) 10 mg PO BID [facility] Stop: 02/10/19 08:59 Last Admin: 01/02/19 18:33 Dose: Not Given Ibuprofen (Motrin) 600 mg PO Q8H PRN PRN Reason: for breakthrough pain Stop: 02/10/19 08:18 Last Admin: 12/29/18 16:28 Dose: 600 mg Insulin Glargine (Lantus Insulin) 26 units SUBQ HS [facility] Stop: 02/13/19 20:59 Last Admin: 01/02/19 20:54 Dose: 26 units Insulin Human Lispro (Humalog Insulin Sliding Scale) 0 units SUBQ ACHS [facility]; Protocol Stop: 02/09/19 21:59 Last Admin: 01/02/19 20:54 Dose: 8 units Ipratropium [place] (Atrovent Neb 0.5mg/2.5ml) 0.5 mg HHN Q4HRT [facility] Stop: 02/09/19 22:59 Last Admin: 01/02/19 22:49 Dose: 0.5 mg Isosorbide Dinitrate (Isordil) 10 mg PO Q8H [facility] Stop: 02/10/19 08:29 Last Admin: 01/02/19 18:33 Dose: Not Given Latanoprost (Xalatan 0.005% Ophth Soln) 1 drop EACH EYE [facility] Stop: 02/10/19 20:59 Last Admin: 01/02/19 20:52 Dose: 1 drop Levothyroxine Sodium (Synthroid) 0.075 mg PO DAILY [facility] Stop: 02/10/19 08:59 Last Admin: 01/02/19 09:42 Dose: 0.075 mg Loratadine (Claritin) 10 mg PO DAILY [facility] Stop: 02/10/19 08:59 Last Admin: 01/02/19 09:42 Dose: 10 mg Lorazepam (Ativan) 0.5 mg PO Q4HR PRN; Protocol PRN Reason: Anxiety Stop: 01/11/19 02:34 Last Admin: 01/02/19 15:00 Dose: 0.5 mg Losartan Potassium (Cozaar) 50 mg PO DAILY [facility] Stop: 02/10/19 08:59 Last Admin: 01/02/19 09:42 Dose: 50 mg Magnesium Hydroxide (Milk Of Magnesia) 30 ml PO DAILY PRN PRN Reason: Constipation Stop: 02/09/19 21:38 Last Admin: 01/01/19 16:41 Dose: 30 ml Nitroglycerin (Nitrostat) 0.4 mg SL Q5MIN PRN PRN Reason: CHEST PAIN Stop: 02/19/19 15:47 Last Admin: 12/22/18 18:08 Dose: 0.4 mg Nystatin (Nystop) 100 units TP BID [facility] Stop: 02/25/19 16:59 Last Admin: 01/02/19 18:33 Dose: Not Given Nystatin (Mycostatin Cream) 1 appl TP Q12HR [facility] Stop: 02/25/19 20:59 Last Admin: 01/02/19 20:55 Dose: 1 appl Ondansetron HCl (Zofran Odt) 4 mg PO Q6H PRN PRN Reason: nausea and vomiting Last Admin: 12/27/18 07:45 Dose: 4 mg Oxycodone/Acetaminophen (Percocet 5/325mg Oral Tab) 1 tab PO Q6H [facility] Stop: 02/10/19 08:59 Last Admin: 01/02/19 20:52 Dose: 1 tab Senna (Senna) 17.2 mg PO HS [facility] Stop: 02/10/19 20:59 Last Admin: 01/02/19 20:52 Dose: 17.2 mg Sodium Phosphate (Fleet Enema) 135 ml RC DAILY PRN PRN Reason: Constipation Stop: 02/10/19 08:18 Vitamin B Complex/Vit C/Folic Acid (Vitamin B Complex W/Vitamin C) 1 tab PO DAILY [facility] Stop: 02/10/19 08:59 Last Admin: 01/02/19 09:42 Dose: 1 tab Zolpidem Tartrate (Ambien) 5 mg PO HS PRN PRN Reason: Insomnia Stop: 02/17/19 14:30 Last Admin: 01/01/19 21:43 Dose: 5 mg General: alert, demented, obese HEENT: NC/AT, PERRLA, EOMI, anicteric sclerae, throat clear Neck: Supple, No JVD, No thyromegaly, +2 carotid pulse wo bruit, No LAD Lungs: CTAB Cardiovascular: RRR, Normal S1, Normal S2, without murmur Abdomen: soft, non-tender, non-distended Extremities: clear Neurological: no change Internal Medicine Assmt/Plan - Assessment Assessment: 1.HTN 2.DJD. 3.DM. 4.PSYCHOSIS - Plan Plan: CONTINUE ON CURRENT MEDICATION AND DIET. Nutritional Asmnt/Malnutr-PDOC - Dietary Evaluation Malnutrition Findings (Please click <Entered> for more info): Nutritional Asmnt/Malnutrition Start: 12/13/18 20: 14 Text: Status: Active Freq: Protocol: Document 12/13/18 20:14 [email or web address] (Rec: 12/13/18 20:40 [email or web address]) Nutritional Asmnt/Malnutrition Patient General Information Nutritional Screening Moderate Risk Diagnosis psychosis Pertinent Medical Hx/Surgical Hx HTN, DM Subjective Information Pt seen sitting up in bed, eating dinner, says she has a poor appetite and her nose hurts, dislikes the pureed foods & would prefer chopped foods, says she dislikes corn, rice, and spicy foods. Likes chocolate flavors. Pt appears to be edentulous. Current Diet Order/ Nutrition Support Pureed/standard carb- 60 Patient / S.O Not Indicated Pertinent Medications lipitor, dulcolax, coreg, colace, insulin, milk of magnesia, senna, vitamin B complex w/vitamin C/folic acid Pertinent Labs POC Glucose 369 mg/dL Nutritional Hx/Data Height 1.75 m Height (Calculated Centimeters) 175.3 Current Weight (lbs) 140.614 kg Weight (Calculated Kilograms) 140.6 Weight (Calculated Grams) 652230.6 [place] Body Weight 145 lbs, 65.9 kg % [place] Body Weight 214 Body Mass Index (BMI) 45.8 Weight Status Morbidly Obese GI Symptoms GI Symptoms None Difficult in: Chewing Food Allergies No Current %PO Good (75-100%) Estimated Nutritional Goals BEE in Kcals: Using Current wt Calories/Kcals/Kg 15 Kcals Calculated 5 Protein: Using Current wt Protein g/k.8-1 Protein Calculated 113-141 Fluid: ml 2115 ml (1 ml/kcal) Nutritional Problem 1. Problem Problem Altered nutrition related laboratory values- poc glucose - related to impaired glycemic control as evidenced by poc glucose 369. Intervention/Recommendation Comments continue current diet rx. patient may benefit from heart healthy (low fat/low sodium/ low cholesterol), consistent carbohydrate diet upon discharge. Expected Outcomes/Goals Expected Outcomes/Goals 1- poc glucose trending down from 369 2- maintain po intakes >75% of all meals Electronically Signed By: Jaye Mcbride, MPH, RDN Clinical Dietitian 12/13/2018 8:41 PM
[2019-01-03] MEDS: APAP/Oxycodone 5/325mg Tab PO SCH ×4 (02:40→23:05)
[2019-01-03] MEDS: Ipratropium Neb 0.5 mg/2.5 mL UD HHN SCH ×6 (03:00→22:21)
[2019-01-03] MEDS: INSULIN LISPRO SLIDING SCALE 100 UNITS/ML UNIT SUBQ SCH ×4 (07:12→21:35)
[2019-01-03] MEDS: Haldol Oral Sol.(concentrate) 10 mg/5 mL Udc PO SCH ×2 (09:38→16:02)
[2019-01-03] MEDS: Levothyroxine 0.075 Mg Tab PO SCH (09:39)
[2019-01-03] MEDS: Vitamin B Complex w/Vitamin C Tab PO SCH (09:39)
[2019-01-03] MEDS: Fluticasone Propionate Nasal 1 SPR SPR NS SCH (09:59)
[2019-01-03] MEDS: NYSTATIN 100000 UNITS/GM POWD TP SCH ×2 (09:59→16:03)
[2019-01-03] MEDS: Nystatin Cream 100,000 u/gm Cream 15 gm TP SCH (10:00)
--- NOTE | 2019-01-03 18:42 | Internal Medicine Prog Note ---
Internal Medicine Subjective - Subjective Service Date: 01/03/19 Patient seen and examined:: with staff (SHE FEELS WELL) Patient is:: awake, verbal, in bed, talking, confused Per staff patient has:: no adverse event Internal Medicine Objective - Results Recent Labs: Laboratory Last Values POC Glucose 204 MG/DL (70 - 105) H 12/21/18 11:38 Triglycerides 336 mg/dL (<150) H 12/12/18 07:10 Cholesterol 174 mg/dL (<200) 12/12/18 07:10 LDL Cholesterol Direct 98 mg/dL (75-193) 12/12/18 07:10 HDL Cholesterol 30 mg/dL (23-92) 12/12/18 07:10 - Physical Exam Vitals and I&O: Vital Signs Temp 98.2 F 01/03/19 14:00 Pulse 96 01/03/19 18:33 Resp 20 01/03/19 18:33 BP 166/92 01/03/19 14:00 Pulse Ox 96 01/03/19 18:33 Intake & Output 01/02/19 01/03/19 01/03/19 18:59 06:59 18:59 Intake Total 2036 377 5875 Balance 4331 852 7807 Intake: Oral 0477 680 4950 Other 240 Other: # Voids 3 4 # Bowel Movements 0 Stool Characteristics Formed Brown Active Medications: Current Medications Acetaminophen (Tylenol Extra Strength) 500 mg PO Q4HR PRN PRN Reason: Pain or Fever >101 Stop: 02/09/19 21:38 Last Admin: 12/17/18 22:25 Dose: 500 mg Albuterol Sulfate (Albuterol 2.5mg/3ml Neb Ud) 2.5 mg HHN Q4H PRN PRN Reason: Shortness of Breath or Wheeze Stop: 02/09/19 21:38 Last Admin: 12/30/18 07:03 Dose: 2.5 mg Aripiprazole (Abilify) 20 mg PO DAILY [facility]; Protocol Stop: 02/12/19 08:59 Last Admin: 01/03/19 09:36 Dose: Not Given Aspirin (Ecotrin) 81 mg PO DAILY [facility] Stop: 02/10/19 08:59 Last Admin: 01/03/19 09:39 Dose: 81 mg Atorvastatin Calcium (Lipitor) 20 mg PO [facility] Stop: 02/10/19 20:59 Last Admin: 01/02/19 20:52 Dose: 20 mg Bisacodyl (Dulcolax 10 Mg Supp) 10 mg RC Q24H PRN PRN Reason: Constipation Stop: 02/10/19 10:59 Last Admin: 12/14/18 05:50 Dose: 10 mg Brimonidine Tartrate (Alphagan 0.1% Ophth Soln) 1 drop EACH EYE TID [facility] Stop: 02/10/19 08:59 Last Admin: 01/03/19 15:03 Dose: Not Given Carvedilol (Coreg) 6.25 mg PO BID [facility] Stop: 02/10/19 08:59 Last Admin: 01/03/19 16:03 Dose: Not Given Dextrose (D50w) 50 ml IVP PRN PRN PRN Reason: Blood Glucose less than 70 Stop: 02/09/19 21:43 Dextrose (Glutose 40%) 18.75 gm PO PRN PRN PRN Reason: BS below 70 & tolerate po Stop: 02/09/19 21:43 Docusate Sodium (Colace) 100 mg PO BID [facility] Stop: 02/10/19 08:59 Last Admin: 01/03/19 16:03 Dose: Not Given Duloxetine HCl (Cymbalta) 60 mg PO DAILY [facility]; Protocol Stop: 02/10/19 08:59 Last Admin: 01/03/19 09:38 Dose: Not Given Fluticasone Propionate (Flonase) 1 spr NS DAILY [facility] Stop: 02/10/19 08:59 Last Admin: 01/03/19 09:59 Dose: Not Given Furosemide (Lasix) 20 mg PO BID [facility] Stop: 02/10/19 08:59 Last Admin: 01/03/19 16:03 Dose: Not Given Glucagon (Glucagen) 1 mg IM PRN PRN PRN Reason: BS below 70&dextrose ineffecti Stop: 02/09/19 21:43 Haloperidol Decanoate (Haldol Dec) 50 mg IM QMONTH [facility]; Protocol Stop: 02/23/19 21:19 Last Admin: 12/25/18 21:47 Dose: 50 mg Haloperidol Lactate (Haldol Concentrate 10mg/5ml Susp) 7.5 mg PO BID [facility]; Protocol Stop: 02/17/19 08:59 Last Admin: 01/03/19 16:02 Dose: Not Given Hydralazine HCl (Apresoline) 10 mg PO BID [facility] Stop: 02/10/19 08:59 Last Admin: 01/03/19 16:03 Dose: Not Given Ibuprofen (Motrin) 600 mg PO Q8H PRN PRN Reason: for breakthrough pain Stop: 02/10/19 08:18 Last Admin: 12/29/18 16:28 Dose: 600 mg Insulin Glargine (Lantus Insulin) 26 units SUBQ HS [facility] Stop: 02/13/19 20:59 Last Admin: 01/02/19 20:54 Dose: 26 units Insulin Human Lispro (Humalog Insulin Sliding Scale) 0 units SUBQ ACHS [facility]; Protocol Stop: 02/09/19 21:59 Last Admin: 01/03/19 16:04 Dose: Not Given Ipratropium [place] (Atrovent Neb 0.5mg/2.5ml) 0.5 mg HHN Q4HRT [facility] Stop: 02/09/19 22:59 Last Admin: 01/03/19 18:21 Dose: 0.5 mg Isosorbide Dinitrate (Isordil) 10 mg PO Q8H [facility] Stop: 02/10/19 08:29 Last Admin: 01/03/19 16:03 Dose: Not Given Latanoprost (Xalatan 0.005% Oph Soln) 1 drop EACH EYE [facility] Stop: 02/10/19 20:59 Last Admin: 01/02/19 20:52 Dose: 1 drop Levothyroxine Sodium (Synthroid) 0.075 mg PO DAILY [facility] Stop: 02/10/19 08:59 Last Admin: 01/03/19 09:39 Dose: 0.075 mg Loratadine (Claritin) 10 mg PO DAILY [facility] Stop: 02/10/19 08:59 Last Admin: 01/03/19 09:59 Dose: Not Given Lorazepam (Ativan) 0.5 mg PO Q4HR PRN; Protocol PRN Reason: Anxiety Stop: 01/11/19 02:34 Last Admin: 01/02/19 15:00 Dose: 0.5 mg Losartan Potassium (Cozaar) 50 mg PO DAILY [facility] Stop: 02/10/19 08:59 Last Admin: 01/03/19 09:59 Dose: 50 mg Magnesium Hydroxide (Milk Of Magnesia) 30 ml PO DAILY PRN PRN Reason: Constipation Stop: 02/09/19 21:38 Last Admin: 01/01/19 16:41 Dose: 30 ml Nitroglycerin (Nitrostat) 0.4 mg SL Q5MIN PRN PRN Reason: CHEST PAIN Stop: 02/19/19 15:47 Last Admin: 12/22/18 18:08 Dose: 0.4 mg Nystatin (Nystop) 100 units TP BID [facility] Stop: 02/25/19 16:59 Last Admin: 01/03/19 16:03 Dose: Not Given Nystatin (Mycostatin Cream) 1 appl TP Q12HR [facility] Stop: 02/25/19 20:59 Last Admin: 01/03/19 10:00 Dose: Not Given Ondansetron HCl (Zofran Odt) 4 mg PO Q6H PRN PRN Reason: nausea and vomiting Last Admin: 12/27/18 07:45 Dose: 4 mg Oxycodone/Acetaminophen (Percocet 5/325mg Oral Tab) 1 tab PO Q6H [facility] Stop: 02/10/19 08:59 Last Admin: 01/03/19 16:28 Dose: 1 tab Senna (Senna) 17.2 mg PO HS [facility] Stop: 02/10/19 20:59 Last Admin: 01/02/19 20:52 Dose: 17.2 mg Sodium Phosphate (Fleet Enema) 135 ml RC DAILY PRN PRN Reason: Constipation Stop: 02/10/19 08:18 Vitamin B Complex/Vit C/Folic Acid (Vitamin B Complex W/Vitamin C) 1 tab PO DAILY [facility] Stop: 02/10/19 08:59 Last Admin: 01/03/19 09:39 Dose: 1 tab Zolpidem Tartrate (Ambien) 5 mg PO HS PRN PRN Reason: Insomnia Stop: 02/17/19 14:30 Last Admin: 01/01/19 21:43 Dose: 5 mg General: alert, demented, obese HEENT: NC/AT, PERRLA, EOMI, anicteric sclerae, throat clear Neck: Supple, No JVD, No thyromegaly, +2 carotid pulse wo bruit, No LAD Lungs: CTAB Cardiovascular: RRR, Normal S1, Normal S2, without murmur Abdomen: soft, non-tender, non-distended Extremities: clear Neurological: no change Internal Medicine Assmt/Plan - Assessment Assessment: 1.HTN 2.DJD. 3.DM. 4.PSYCHOSIS - Plan Plan: CONTINUE ON CURRENT MEDICATION AND DIET. Nutritional Asmnt/Malnutr-PDOC - Dietary Evaluation Malnutrition Findings (Please click <Entered> for more info): Nutritional Asmnt/Malnutrition Start: 12/13/18 20: 14 Text: Status: Active Freq: Protocol: Document 12/13/18 20:14 [email or web address] (Rec: 12/13/18 20:40 [email or web address]) Nutritional Asmnt/Malnutrition Patient General Information Nutritional Screening Moderate Risk Diagnosis psychosis Pertinent Medical Hx/Surgical Hx HTN, DM Subjective Information Pt seen sitting up in bed, eating dinner, says she has a poor appetite and her nose hurts, dislikes the pureed foods & would prefer chopped foods, says she dislikes corn, rice, and spicy foods. Likes chocolate flavors. Pt appears to be edentulous. Current Diet Order/ Nutrition Support Pureed/standard carb- 60 Patient / S.O Not Indicated Pertinent Medications lipitor, dulcolax, coreg, colace, insulin, milk of magnesia, senna, vitamin B complex w/vitamin C/folic acid Pertinent Labs POC Glucose 369 mg/dL Nutritional Hx/Data Height 1.75 m Height (Calculated Centimeters) 175.3 Current Weight (lbs) 140.614 kg Weight (Calculated Kilograms) 140.6 Weight (Calculated Grams) 554164.6 [place] Body Weight 145 lbs, 65.9 kg % [place] Body Weight 214 Body Mass Index (BMI) 45.8 Weight Status Morbidly Obese GI Symptoms GI Symptoms None Difficult in: Chewing Food Allergies No Current %PO Good (75-100%) Estimated Nutritional Goals BEE in Kcals: Using Current wt Calories/Kcals/Kg 15 Kcals Calculated 5 Protein: Using Current wt Protein g/k.8-1 Protein Calculated 113-141 Fluid: ml 2115 ml (1 ml/kcal) Nutritional Problem 1. Problem Problem Altered nutrition related laboratory values- poc glucose - related to impaired glycemic control as evidenced by poc glucose 369. Intervention/Recommendation Comments continue current diet rx. patient may benefit from heart healthy (low fat/low sodium/ low cholesterol), consistent carbohydrate diet upon discharge. Expected Outcomes/Goals Expected Outcomes/Goals 1- poc glucose trending down from 369 2- maintain po intakes >75% of all meals Electronically Signed By: Jaye Mcbride, MPH, RDN Clinical Dietitian 12/13/2018 8:41 PM
--- NOTE | 2019-01-03 20:44 | Progress Notes ---
DATE: 01/03/2019 SUBJECTIVE: Chart was reviewed and the patient interviewed. Also discussed the patient's condition with the staff and reviewed records and labs. The patient seems to be more paranoid and more agitated since her hospital stay has been more than usual and she has been staying here for a long time. The patient also is demanding and at times verbally abusive and threatening. On the other hand, the patient continued to comply with taking her medications with no side effects of medications. ASSESSMENT: The patient is still agitated and also still needs placement. TREATMENT PLAN: Continue to monitor her behavior and her condition. Also, working with family caseworker in regard to discharge plans and placement issue. JOB# [id number]
[2019-01-03] MEDS: Atorvastatin Calcium 10 MG TAB PO SCH (21:26)
[2019-01-03] MEDS: Insulin Glargine 100 units/ml 10ml Vial SUBQ SCH (21:36)
[2019-01-04] MEDS: Ipratropium Neb 0.5 mg/2.5 mL UD HHN SCH ×4 (02:23→15:29)
[2019-01-04] MEDS: APAP/Oxycodone 5/325mg Tab PO SCH ×3 (03:26→16:45)
--- NOTE | 2019-01-04 06:06 | Progress Notes ---
DATE: 01/04/2019 SUBJECTIVE: Chart was reviewed and the patient interviewed. Also discussed the patient's condition with the staff and reviewed records and labs. The patient is selective in answering questions and in response to staff. The patient also is angry and she is still demanding, manipulative. She also is still at times threatening and easily agitated. She also still needs redirections. The patient also is argumentative. The patient at times also refused to take medications, but she did take Haldol yesterday morning and refused Abilify and Cymbalta at night. ASSESSMENT: The patient is still demanding and is still in irritable mood. TREATMENT PLAN: Continue to monitor her behavior and her condition closely. Also, continue to work on discharge plans and placement issue. JOB# [id number]
[2019-01-04] MEDS: INSULIN LISPRO SLIDING SCALE 100 UNITS/ML UNIT SUBQ SCH ×3 (06:33→16:44)
[2019-01-04] MEDS: Haldol Oral Sol.(concentrate) 10 mg/5 mL Udc PO SCH ×3 (08:32→16:44)
[2019-01-04] MEDS: Vitamin B Complex w/Vitamin C Tab PO SCH ×2 (08:34→08:56)
[2019-01-04] MEDS: Levothyroxine 0.075 Mg Tab PO SCH (08:35)
[2019-01-04] MEDS: Fluticasone Propionate Nasal 1 SPR SPR NS SCH (08:53)
== END 2019-01-04 14:35 | DRG 885 ==
LOC: GERO 20:42
PROVIDERS: ADMIT Psychiatry & Neurology Psychiatry; ATTEND Psychiatry & Neurology Psychiatry
DX: F32.3 Major depressive disorder, single episode, severe with psychotic features (principal); N39.0 Urinary tract infection, site not specified; Z68.42 Body mass index [BMI] 45.0-49.9, adult; E11.9 Type 2 diabetes mellitus without complications; I10 Essential (primary) hypertension; E66.9 Obesity, unspecified; E78.5 Hyperlipidemia, unspecified; F29 Unspecified psychosis not due to a substance or known physiological condition; Z88.0 Allergy status to penicillin; Z88.2 Allergy status to sulfonamides
CPT/HCPCS: 36415-UA; 80061-TC; 82948-90; 83036-90; 90779; 93005; 94640; 94760; J1631; J1815; J7613; Q0162; Z7610

== ENCOUNTER 2019-01-10 14:28 | Inpatient (IN) | payer MEDICARE, OTHER ==
--- NOTE | 2019-01-10 14:56 | ED Physician Chart ---
ED Chief Complaint/HPI - Patient Information Date Seen:: 01/10/19 Time Seen:: 14:45 Chief Complaint:: aggressive behavior History of Present Illness:: She was sent here from her extended care facility for reportedly exhibiting aggressive behavior there which the patient denies. She has recently been a patient in our [facility] Department being discharged about one week ago. Patient states she has skin cancer under her right breast but no lesions could be visualized because she could not tolerate lifting up her right breast because of pain. Patient reportedly also refusing medication. Allergies:: Allergies Allergy/AdvReac Type Severity Reaction Status Date / Time furosemide [From Lasix] Allergy Verified 01/10/19 14:51 latex Allergy Verified 01/10/19 14:51 lisinopril Allergy Verified 01/10/19 14:51 Penicillins Allergy Verified 01/10/19 14:51 Sulfa (Sulfonamide Allergy Verified 01/10/19 14:51 Antibiotics) sulfamethoxazole Allergy Verified 01/10/19 14:51 [From Bactrim] trimethoprim [From Bactrim] Allergy Verified 01/10/19 14:51 LOTION Allergy Uncoded 06/16/16 18:42 Historian:: Patient Review:: Transfer documents Reviewed ED Review of Systems - Review of Systems General/Constitutional: No fever, No chills Skin: Other (see history) Head: No headache Eyes: No loss of vision ENT: No earache Neck: No neck pain, No swelling Cardio Vascular: No chest pain, No palpitations Pulmonary: No SOB GI: No nausea, No vomiting, No diarrhea Musculoskeletal: Bone or joint pain Endocrine: No polyuria, No polydipsia Psychiatric: Other (possible aggressive behavior) Hematopoietic: No bruising Allergic/Immuno: No urticaria Neurological: No syncope ED Past Medical History - Past Medical History Past Medical History: DM (diabetic neuropathy; upper extremity arthralgias), Other Family History: Heart disease, Diabetes Melitus, HTN Social History: Care Facility, Other (quit smoking 30 years ago) Surgical History: Appendectomy, other (ectopic ) Psychiatricy History: Other (possible aggressive behavior) Medication: Reviewed Family Medical History - Family Member Mother History Unknown: Yes Ethnicity: Unknown Living Status: Unknown ED Physical Exam - Physical Examination General/Constitutional: Awake, Well-developed, well-nourished, Alert, No distress, GCS 15, Non-toxic appearing Other Gen/Cons comments:: Alert and oriented to the correct date Head: Atraumatic Eyes: Lids, conjuctiva normal, PERRL, EOMI Skin: No rash, Well hydrated, No lymphadenopathy Other Skin comments:: See history ENMT: External ears, nose nl, Nasal exam nl, Lips, teeth, gums nl Neck: Nontender, No nuchal rigidity, No bruit, No mass, No stridor Respiratory: Nl effort/Exclusion, Clear to Auscultation, No Wheeze/Rhonchi/Rales Cardio Vascular: RRR, No murmur, gallop, rubs, NL S1 S2 GI: No tenderness/rebounding/guarding, No organomegaly, No hernia, Normal BS's, Nondistended, No mass/bruits, No McBurney tenderness : No CVA tenderness Extremities: No tenderness or effusion, Normal digits & nails Other Extremities comments:: 1 out of 4 pretibial pitting edema Neuro/Psych: Alert/oriented, Judgement/insight normal, Mood normal, No focal deficits ED Labs/Radiology/EKG Results - Lab Results Results: Laboratory Results WBC 8.4 Th/cmm (4.8-10.8) 01/10/19 15:10 RBC 5.16 Mil/cmm (3.80-5.20) 01/10/19 15:10 Hgb 14.9 gm/dL (12-16) 01/10/19 15:10 Hct 44.3 % (41.0-60) 01/10/19 15:10 MCV 85.8 fl (81-100) 01/10/19 15:10 MCH 28.9 pg (27.0-31.0) 01/10/19 15:10 MCHC Differential 33.7 pg (28.0-36.0) 01/10/19 15:10 RDW 12.1 % (11.5-20.0) 01/10/19 15:10 Plt Count 291 Th/cmm (150-400) 01/10/19 15:10 MPV 7.3 fl 01/10/19 15:10 Neutrophils % 59.5 % (40.0-80.0) 01/10/19 15:10 Lymphocytes % 31.2 % (20.0-50.0) 01/10/19 15:10 Monocytes % 5.0 % (2.0-10.0) 01/10/19 15:10 Eosinophils % 4.3 % (0.0-5.0) 01/10/19 15:10 Basophils % 0.0 % (0.0-2.0) 01/10/19 15:10 Sodium 131 mEq/L (136-145) L 01/10/19 15:10 Potassium 4.2 mEq/L (3.5-5.1) 01/10/19 15:10 Chloride 96 mEq/L (98-107) L 01/10/19 15:10 Carbon Dioxide 23.9 mEq/L (21.0-31.0) 01/10/19 15:10 Anion Gap 15.3 (7.0-16.0) 01/10/19 15:10 BUN 18 mg/dL (7-25) 01/10/19 15:10 Creatinine 1.0 mg/dL (0.6-1.2) 01/10/19 15:10 Est GFR ( Amer) TNP 01/10/19 15:10 Est GFR (Non-Af Amer) TNP 01/10/19 15:10 BUN/Creatinine Ratio 18.0 01/10/19 15:10 Glucose 363 mg/dL (70-105) H 01/10/19 15:10 Calcium 9.6 mg/dL (8.6-10.3) 01/10/19 15:10 Total Bilirubin 0.5 mg/dL (0.3-1.0) 01/10/19 15:10 AST 13 U/L (13-39) 01/10/19 15:10 ALT 14 U/L (7-52) 01/10/19 15:10 Alkaline Phosphatase 66 U/L (34-104) 01/10/19 15:10 Total Protein 7.1 gm/dL (6.0-8.3) 01/10/19 15:10 Albumin 3.7 gm/dL (3.7-5.3) 01/10/19 15:10 Globulin 3.4 gm/dL 01/10/19 15:10 Albumin/Globulin Ratio 1.1 (1.0-1.8) 01/10/19 15:10 Triglycerides 417 mg/dL (<150) H 01/10/19 15:10 Cholesterol 188 mg/dL (<200) 01/10/19 15:10 LDL Cholesterol Direct 109 mg/dL (75-193) 01/10/19 15:10 HDL Cholesterol 27 mg/dL (23-92) 01/10/19 15:10 TSH 1.76 uIU/ml (0.34-5.60) 01/10/19 15:10 - EKG Interpretations Rate & Rhythm: normal sinus rhythm with a rate of 86 Lulu: normal Comments:: Intraventricular conduction delay; poor R-wave progression; ST and T-wave changes ED Assessment - Assessment General Assessment: Patient's blood sugar was 363. Patient given 10 units of regular insulin subcutaneously. She then declined repeat accu-check. Patient's initial high blood pressure 197/102 came down with 0.2 mg of catapres orally to 146/79. ED Septic Shock - . Is Septic Shock (SBP<90, OR Lactate>4 mmol\L) present?: No ED Reassessment (Disposition) - Reassessment Reassessment Condition:: Unchanged - Diagnosis Diagnosis:: Possible aggressive behavior; medication noncompliance; hypertension; diabetes; hyperglycemia - Patient Disposition Admitted to:: [facility] Admitting Medical Physician:: Al Voss Admitting Psych Physician:: Allen Velazquez Condition at Disposition:: Stable, Unchanged
[2019-01-10 15:23] LABS: % EOSINOPHILS 4.3 % (0.0-5.0); % LYMPHOCYTES 31.2 % (20.0-50.0); % NEUTROPHILS 59.5 % (40.0-80.0); EOSINOPHILE ABSOLUTE 0.4 Th/cmm (0.1-0.4); HEMATOCRIT 44.3 % (41.0-60); HEMOGLOBIN 14.9 gm/dL (12-16); LYMPHOCYTE ABSOLUTE 2.6 Th/cmm (1.5-3.0); MEAN CELL VOLUME 85.8 fl (81-100); MEAN CORPUSCULAR HEMOGLOBIN 28.9 pg (27.0-31.0); MEAN CORPUSCULAR HGB CONC 33.7 pg (28.0-36.0); MONOCYTE ABSOLUTE 0.4 Th/cmm (0.3-1.0); PLATELET COUNT 291 Th/cmm (150-400); RED BLOOD COUNT 5.16 Mil/cmm (3.80-5.20); RED CELL DISTRIBUTION WIDTH 12.1 % (11.5-20.0); WHITE BLOOD COUNT 8.4 Th/cmm (4.8-10.8)
[2019-01-10 15:44] LABS: ALB/GLOB RATIO 1.1 (1.0-1.8); ALBUMIN 3.7 gm/dL (3.7-5.3); ALKALINE PHOSPHATASE 66 U/L (34-104); ANION GAP 15.3 (7.0-16.0); BILIRUBIN,TOTAL 0.5 mg/dL (0.3-1.0); BUN - UREA NITROGEN 18 mg/dL (7-25); CALCIUM SERUM 9.6 mg/dL (8.6-10.3); CARBON DIOXIDE 23.9 mEq/L (21.0-31.0); CHLORIDE 96 mEq/L (98-107); CHOLESTEROL 188 mg/dL (<200); GLUCOSE 363 mg/dL (70-105); HDL -HIGH DENSITY LIPOPROTEIN 27 mg/dL (23-92); POTASSIUM SERUM 4.2 mEq/L (3.5-5.1); SGOT 13 U/L (13-39); SGPT/ALT 14 U/L (7-52); SODIUM SERUM 131 mEq/L (136-145); TOTAL PROTEIN,SERUM 7.1 gm/dL (6.0-8.3); TRIGLYCERIDES 417 mg/dL (<150)
[2019-01-10] MEDS ORDERED: INSULIN HUMAN REGULAR 100 UNITS/ML UNIT SUBQ ONE (15:57)
[2019-01-10 19:54] VITALS: BP 140/82
[2019-01-10] MEDS ORDERED: Maalox 30 mL Cup PO PRN (19:57)
[2019-01-10] MEDS ORDERED: Magnesium Hydroxide (MOM) 30 mL UDC PO PRN (19:57)
[2019-01-10] MEDS ORDERED: Albuterol Nebulizer 2.5mg/3mL HHN PRN (20:17)
[2019-01-10] MEDS ORDERED: INSULIN LISPRO SLIDING SCALE 100 UNITS/ML UNIT SUBQ SCH (21:00)
[2019-01-10] MEDS ORDERED: GLUCAGON HCl 1 MG KIT IM PRN (23:25)
[2019-01-10] MEDS ORDERED: Fleet Enema 135 mL RC PRN (23:25)
[2019-01-10] MEDS ORDERED: APAP/Oxycodone 5/325mg Tab PO SCH (23:30)
--- NOTE | 2019-01-11 00:25 | History & Physical ---
ADMIT DATE: HISTORY OF PRESENT ILLNESS: The patient is an 78-year-old female with long history of diabetes mellitus, hypertension, hypothyroidism, psychosis, admitted to Geropsych Department under Dr. Velazquez's service. No pain, no shortness of breath, no nausea, no vomiting, no fever, no chills. The patient is confused. PAST MEDICAL HISTORY: Significant for hypertension, diabetes mellitus, hypothyroidism, psychosis, and degenerative joint disease. PAST SURGICAL HISTORY: No recent surgery. ALLERGIES: FUROSEMIDE, LATEX, LISINOPRIL, PENICILLIN. SOCIAL HISTORY: No smoking, no alcohol, no drug. FAMILY HISTORY: Noncontributory. REVIEW OF SYSTEMS: RENAL SYSTEM: No history of chronic renal disorder. CARDIOVASCULAR SYSTEM: History of hypertension. ENDOCRINE SYSTEM: She has diabetes mellitus. GASTROINTESTINAL SYSTEM: No upper or lower gastrointestinal bleeding. NEUROLOGICAL SYSTEM: Seizure disorder. MUSCULOSKELETAL SYSTEM: She has degenerative joint disease. HEMATOLOGIC SYSTEM: No bleeding tendencies. RESPIRATORY SYSTEM: No history of asthma. GENITOURINARY: No dysuria or hematuria. PHYSICAL EXAMINATION: GENERAL: She is awake, alert, mildly confused. VITAL SIGNS: Temperature is 97.3, heart rate 83, blood pressure 146/79. HEENT: Normocephalic. Pupils reactive to light and accommodation. Sclerae clear. NECK: Supple. Negative for lymphadenopathy, JVD or bruit. CHEST: Bilaterally normal. No rhonchi or wheezing. HEART: S1, S2 normal. No gallop rhythm. ABDOMEN: Soft, bowel sounds positive. EXTREMITIES: No edema. NEUROLOGIC: She is awake, alert, mildly confused. No focal muscle deficits. Cranial nerves 2-12 is intact. LABORATORY DATA: White blood cell 8.4, hemoglobin 14.9, hematocrit 44.3, platelet 291. Sodium 131, potassium 4.2, BUN 18, creatinine 1.0. Triglyceride 417, cholesterol 188. ASSESSMENT: 1. Diabetes mellitus. 2. Hypertension. 3. Hypothyroidism. 4. Hyperlipidemia. 5. Hyponatremia. 6. Psychosis. PLAN: The patient is in the hospital under Dr. Velazquez's service. Medical problems addressed during hospitalization is psychosis. Medical problems to be addressed at discharge are diabetes mellitus, hypertension and hypothyroidism. The patient is medically stable for activity. Thank you Dr. Velazquez for asking me to see your patient. The patient is full code. JOB# [id number]
[2019-01-11] MEDS ORDERED: GLUCAGON HCl 1 MG KIT IM PRN (01:43)
[2019-01-11] MEDS: Albuterol/Ipratropium Neb 3 ML AERS HHN PRN ×2 (06:31→11:14)
[2019-01-11] MEDS: APAP/Oxycodone 5/325mg Tab PO PRN ×2 (06:36→18:33)
[2019-01-11] MEDS: Levothyroxine 0.075 Mg Tab PO SCH (06:36)
[2019-01-11] MEDS: INSULIN LISPRO SLIDING SCALE 100 UNITS/ML UNIT SUBQ SCH ×4 (06:51→21:37)
[2019-01-11] MEDS: Fluticasone Propionate Nasal 1 SPR SPR NS SCH (08:46)
[2019-01-11] MEDS: Vitamin B Complex w/Vitamin C Tab PO SCH (08:47)
[2019-01-11] MEDS: Multivitamin Tab PO SCH (08:47)
[2019-01-11] MEDS ORDERED: Atorvastatin Calcium 10 MG TAB PO SCH ×2 (09:00→21:00)
--- NOTE | 2019-01-11 19:29 | Internal Medicine Prog Note ---
Internal Medicine Subjective - Subjective Service Date: 01/11/19 Patient seen and examined:: with staff (SHE DENIES ANY SOB.SHE STILL COMPLAINING OF BACK PAIN.) Patient is:: awake, verbal, in bed, talking, confused Per staff patient has:: no adverse event Internal Medicine Objective - Results Result Diagrams: 01/10/19 15:10 01/10/19 15:10 Recent Labs: Laboratory Last Values WBC 8.4 Th/cmm (4.8-10.8) 01/10/19 15:10 RBC 5.16 Mil/cmm (3.80-5.20) 01/10/19 15:10 Hgb 14.9 gm/dL (12-16) 01/10/19 15:10 Hct 44.3 % (41.0-60) 01/10/19 15:10 MCV 85.8 fl (81-100) 01/10/19 15:10 MCH 28.9 pg (27.0-31.0) 01/10/19 15:10 MCHC Differential 33.7 pg (28.0-36.0) 01/10/19 15:10 RDW 12.1 % (11.5-20.0) 01/10/19 15:10 Plt Count 291 Th/cmm (150-400) 01/10/19 15:10 MPV 7.3 fl 01/10/19 15:10 Neutrophils % 59.5 % (40.0-80.0) 01/10/19 15:10 Lymphocytes % 31.2 % (20.0-50.0) 01/10/19 15:10 Monocytes % 5.0 % (2.0-10.0) 01/10/19 15:10 Eosinophils % 4.3 % (0.0-5.0) 01/10/19 15:10 Basophils % 0.0 % (0.0-2.0) 01/10/19 15:10 Sodium 131 mEq/L (136-145) L 01/10/19 15:10 Potassium 4.2 mEq/L (3.5-5.1) 01/10/19 15:10 Chloride 96 mEq/L (98-107) L 01/10/19 15:10 Carbon Dioxide 23.9 mEq/L (21.0-31.0) 01/10/19 15:10 Anion Gap 15.3 (7.0-16.0) 01/10/19 15:10 BUN 18 mg/dL (7-25) 01/10/19 15:10 Creatinine 1.0 mg/dL (0.6-1.2) 01/10/19 15:10 Est GFR ( Amer) TNP 01/10/19 15:10 Est GFR (Non-Af Amer) TNP 01/10/19 15:10 BUN/Creatinine Ratio 18.0 01/10/19 15:10 Glucose 363 mg/dL (70-105) H 01/10/19 15:10 POC Glucose 250 MG/DL (70 - 105) H 01/11/19 06:29 Calcium 9.6 mg/dL (8.6-10.3) 01/10/19 15:10 Total Bilirubin 0.5 mg/dL (0.3-1.0) 01/10/19 15:10 AST 13 U/L (13-39) 01/10/19 15:10 ALT 14 U/L (7-52) 01/10/19 15:10 Alkaline Phosphatase 66 U/L (34-104) 01/10/19 15:10 Total Protein 7.1 gm/dL (6.0-8.3) 01/10/19 15:10 Albumin 3.7 gm/dL (3.7-5.3) 01/10/19 15:10 Globulin 3.4 gm/dL 01/10/19 15:10 Albumin/Globulin Ratio 1.1 (1.0-1.8) 01/10/19 15:10 Triglycerides 417 mg/dL (<150) H 01/10/19 15:10 Cholesterol 188 mg/dL (<200) 01/10/19 15:10 LDL Cholesterol Direct 109 mg/dL (75-193) 01/10/19 15:10 HDL Cholesterol 27 mg/dL (23-92) 01/10/19 15:10 TSH 1.76 uIU/ml (0.34-5.60) 01/10/19 15:10 RPR NONREACTIVE (NONREACTIVE) 01/10/19 15:10 - Physical Exam Vitals and I&O: Vital Signs Temp 98.0 F 01/11/19 14:00 Pulse 80 01/11/19 19:09 Resp 18 01/11/19 19:09 BP 154/96 01/11/19 16:37 Pulse Ox 98 01/11/19 19:09 Intake & Output 01/11/19 01/11/19 01/12/19 06:59 18:59 06:59 Intake Total 240 1100 Balance 240 1100 Intake: Oral 240 740 Other 360 Other: # Voids 2 4 # Bowel Movements 1 Active Medications: Current Medications Acetaminophen (Tylenol Extra Strength) 500 mg PO Q4H PRN PRN Reason: Pain or Fever >101 Stop: 03/12/19 00:41 Al Hydrox/Mg Hydrox/Simethicone (Maalox) 30 ml PO Q4HR PRN PRN Reason: GI DISTRESS Stop: 03/11/19 19:56 Albuterol/Ipratropium (Duoneb Neb) 3 ml HHN Q4H PRN PRN Reason: Wheezing Stop: 03/12/19 00:48 Last Admin: 01/11/19 11:14 Dose: 3 ml Aripiprazole (Abilify) 20 mg PO DAILY COUNT INCLUDES THE [facility]; Protocol Stop: 03/12/19 08:59 Aspirin (Ecotrin) 81 mg PO DAILY COUNT INCLUDES THE [facility] Stop: 03/12/19 08:59 Last Admin: 01/11/19 08:45 Dose: 81 mg Atorvastatin Calcium (Lipitor) 20 mg PO HS COUNT INCLUDES THE [facility]; Protocol Stop: 03/12/19 20:59 Brimonidine Tartrate (Alphagan 0.1% [facility]) 1 drop EACH EYE TID COUNT INCLUDES THE [facility] Stop: 03/12/19 08:59 Last Admin: 01/11/19 14:07 Dose: Not Given Carvedilol (Coreg) 6.25 mg PO BID COUNT INCLUDES THE [facility] Stop: 03/12/19 08:59 Last Admin: 01/11/19 16:36 Dose: 6.25 mg Docusate Sodium (Colace) 100 mg PO BID COUNT INCLUDES THE [facility] Stop: 03/12/19 08:59 Last Admin: 01/11/19 16:37 Dose: 100 mg Duloxetine HCl (Cymbalta) 60 mg PO DAILY COUNT INCLUDES THE [facility]; Protocol Stop: 03/12/19 08:59 Fluticasone Propionate (Flonase) 1 spr NS DAILY COUNT INCLUDES THE [facility] Stop: 03/12/19 08:59 Last Admin: 01/11/19 08:46 Dose: 1 spr Glucagon (Glucagen) 1 mg IM PRN PRN PRN Reason: BS below 70 Stop: 03/11/19 23:24 Haloperidol (Haldol) 7.5 mg PO BID COUNT INCLUDES THE [facility]; Protocol Stop: 03/12/19 08:59 Hydralazine HCl (Apresoline) 10 mg PO BID CAL Stop: 03/12/19 08:59 Last Admin: 01/11/19 16:37 Dose: 10 mg Ibuprofen (Motrin) 600 mg PO Q8H PRN PRN Reason: breakthrough pain Stop: 03/12/19 00:35 Last Admin: 01/11/19 18:34 Dose: 600 mg Insulin Glargine (Lantus Insulin) 26 units SUBQ HS COUNT INCLUDES THE [facility] Stop: 03/12/19 20:59 Insulin Human Lispro (Humalog Insulin Sliding Scale) 0 units SUBQ [facility] COUNT INCLUDES THE [facility]; Protocol Stop: 03/11/19 20:59 Last Admin: 01/11/19 16:36 Dose: Not Given Isosorbide Dinitrate (Isordil) 10 mg PO Q8HR COUNT INCLUDES THE [facility] Stop: 03/12/19 04:59 Last Admin: 01/11/19 12:20 Dose: Not Given Latanoprost (Xalatan 0.005% Oph Sol) 1 drop EACH EYE HS COUNT INCLUDES THE [facility] Stop: 03/12/19 20:59 Levothyroxine Sodium (Synthroid) 0.075 mg PO QDAC COUNT INCLUDES THE [facility] Stop: 03/12/19 07:29 Last Admin: 01/11/19 06:36 Dose: 0.075 mg Loratadine (Claritin) 10 mg PO DAILY COUNT INCLUDES THE [facility] Stop: 03/12/19 08:59 Last Admin: 01/11/19 08:46 Dose: 10 mg Lorazepam (Ativan) 0.5 mg PO Q4HR PRN; Protocol PRN Reason: Anxiety/Agitation Stop: 02/09/19 19:56 Last Admin: 01/10/19 22:16 Dose: 0.5 mg Losartan Potassium (Cozaar) 50 mg PO DAILY COUNT INCLUDES THE [facility] Stop: 03/12/19 08:59 Last Admin: 01/11/19 08:46 Dose: 50 mg Magnesium Hydroxide (Milk Of Magnesia) 30 ml PO HS PRN PRN Reason: Constipation Multivitamins/Vitamin C (Theragran) 1 tab PO DAILY COUNT INCLUDES THE [facility] Stop: 03/12/19 08:59 Last Admin: 01/11/19 08:47 Dose: 1 tab Nitroglycerin (Nitrostat) 0.4 mg SL Q5MIN PRN PRN Reason: CHEST PAIN Stop: 03/11/19 23:24 Oxycodone/Acetaminophen (Percocet 5/325mg Oral Tab) 1 tab PO Q8H PRN PRN Reason: severe pain (7-10) Stop: 03/12/19 00:44 Last Admin: 01/11/19 18:33 Dose: 1 tab Senna (Senna) 17.2 mg PO HS CAL Stop: 03/12/19 20:59 Sodium Phosphate (Fleet Enema) 135 ml RC DAILY PRN PRN Reason: Constipation Stop: 03/11/19 23:24 Vitamin B Complex/Vit C/Folic Acid (Vitamin B Complex W/Vitamin C) 1 tab PO DAILY CAL Stop: 03/12/19 08:59 Last Admin: 01/11/19 08:47 Dose: 1 tab Zolpidem Tartrate (Ambien) 5 mg PO HS PRN PRN Reason: Insomnia Stop: 03/11/19 19:56 General: alert HEENT: NC/AT, PERRLA, EOMI, anicteric sclerae, throat clear Neck: Supple, No JVD, No thyromegaly, +2 carotid pulse wo bruit, No LAD Lungs: CTAB Cardiovascular: RRR, Normal S1, Normal S2, without murmur Abdomen: soft, non-tender, non-distended Extremities: clear Neurological: no change Internal Medicine Assmt/Plan - Assessment Assessment: 1.DM. 2.HTN. 3.HYPOTHYROIDISM. 4.PSYCHOSIS - Plan Plan: CONTINUE ON CURRENT MEDICATION AND DIET Nutritional Asmnt/Malnutr-PDOC - Dietary Evaluation Malnutrition Findings (Please click <Entered> for more info): Nutritional Asmnt/Malnutrition Start: 01/11/19 12: 41 Text: Status: Complete Freq: Protocol: Document 01/11/19 12:41 AXEL (Rec: 01/11/19 12:45 AXEL [email or web address]) Nutritional Asmnt/Malnutrition Patient General Information Nutritional Screening Consult Diagnosis PSYCHOSIS Pertinent Medical Hx/Surgical Hx HTN, DM, HYPOTHYROIDISM, PSYCHOSIS, DJD Subjective Information IA CONSULT: DM PT IS A 78 YEAR OLD FEMALE FROM [facility] FACILITY ADMITTED ON 01/10 D/T AGGRESSIVE BEHAVIOR. PT WAS HERE RECENTLY, DISCHARGED ON . PER MEAL/NUTRITION ACTIVITY RECORD, PT TYPICALLY ATE 100% MEALS. HT: 59 WT: 310 LB (141 KG) ABW: 186 LB (84.66 KG) BMI: 45.78 (OBESE III) GI: WNL, NON-TENDER, LARGE, ROUND BM: NOT NOTED I/O: 240/NOT NOTED SKIN: SKIN BREAKDOWN TO BUTTOCKS AREA LUIS: NOT NOTED DIET ORDER: CCHO 45GM, PUREED ESTIMATED ENERGY NEEDS: (OBESE III, ABW) 0270-8070 KCALS (20-25 KCALS/ KG) 68-85 G PRO (0.8-1.0 G/KG) 5458-3434 ML (25-30 ML/KG) PT PO INTAKE: 100% SNACK PROVIDED. Current Diet Order/ Nutrition Support CCHO 45GM, PUREED Pertinent Medications MAALOX (PRN), ALBUTEROL (PRN), LIPITOR, COREG, COLACE, GLUCAGON (PRN), LANTUS, SYNTHROID, INS-SS, COZAAR, MOM (PRN), THEREGRAN, SENNA, FLEET ENEMA (PRN), VIT B COMLPEX WITH VIT C Pertinent Labs 01/10: NA 131, GLUCOSE 363 POC GLUCOSE (LAST 24 HOURS): 257, 250 Nutritional Hx/Data Height 1.75 m Height (Calculated Centimeters) 175.3 Current Weight (lbs) 140.614 kg Weight (Calculated Kilograms) 140.6 Weight (Calculated Grams) 577414.6 [place] Body Weight 145 % [place] Body Weight 214 Body Mass Index (BMI) 45.8 Weight Status Morbidly Obese GI Symptoms GI Symptoms None Last BM NOT NOTED Skin Integrity/Comment: SKIN BREAKDOWN TO BUTTOCKS AREA LUIS: NOT NOTED Current %PO Good (75-100%) Estimated Nutritional Goals BEE in Kcals: Adj wt of IBW Calories/Kcals/Kg 20-25 Kcals Calculated 2804-3638 Protein: Adj wt of IBW Protein g/k.8-1.0 Protein Calculated 68-85 Fluid: ml 5728-5977 ML (25-30 ML/KG) Nutritional Problem 1. Problem Problem ALTERED NUTRITION RELATED LABS Etiology R/T ENDOCRINE DYSFUNCTION Signs/Symptoms: AEB HX DM AND GLUCOSE 363 Malnutrition Related to Morbid Obesity Malnutrition related to morbid obesity Weight 200% of ideal wt Query Text:(Any 1 Criteria met) Malnutrition related to morbid obesity Yes Intervention/Recommendation Comments 1. CONTINUE WITH [facility] 45GM, PUREED DIET ORDERED. 2. CONTNIUE ANTIHYPERGLYCEMIC MEDICATION FOR GLUCOSE CONTROL PER MD ORDER. Expected Outcomes/Goals Expected Outcomes/Goals 1. PO INTAKE TO MEET 75% OF NUTRITIONAL NEEDS. 2. MONITOR PO INTAKE, WT, NUTRITION RELATED LABS AND SKIN INTEGRITY. 3. F/U LOW RISK IN 7 DAYS, 01/18
[2019-01-11] MEDS: Atorvastatin Calcium 10 MG TAB PO SCH (21:17)
[2019-01-11] MEDS: Insulin Glargine 100 units/ml 10ml Vial SUBQ SCH (21:36)
--- NOTE | 2019-01-11 23:33 | Psychiatric Evaluation ---
DATE OF SERVICE: 01/11/2019 JUSTIFICATION FOR HOSPITALIZATION: The patient was aggressive at the care facility, they could not take care of her, very recent discharge. CHIEF COMPLAINT: "I did not need medications, you know that." HISTORY OF PRESENT ILLNESS: This is an 78-year-old female with multiple hospitalizations at [facility], was apparently aggressive at the care facility, they could not take care of her. The patient guarded on exam, minimizing, the reason that she is here, just stating that she did not need medications, did not want medications, history of striking out behaviors, aggressive behaviors, yelling, screaming at staff, irritable, agitated. PAST PSYCHIATRIC HISTORY: Admissions in the past. MEDICATIONS: Noted. SOCIAL HISTORY: Born in [place], not , . She states she has two daughters, unclear involvement. MEDICATIONS: Reviewed. MENTAL STATUS EXAMINATION: Overweight female, fair eye contact, guarded, evasive. Mood "okay." Affect upset. Thought processes were tangential. No SI, no HI. No overt psychotic symptoms. Somewhat disoriented as to why she is here. Poor impulse control. PROVISIONAL DIAGNOSES: Noted from her last psychiatric evaluation, which was just last month, depressive mood disorder, unspecified with psychotic features. MEDICAL: Please see full H and P. ESTIMATED LENGTH OF STAY: 7-10 days. ASSESSMENT: The patient combative, impulsive, and unpredictable. We will continue to monitor. TREATMENT PLAN: Includes group as well as milieu therapy. CONDITIONS FOR DISCHARGE: Improved mood, improved affect, better control of her mood symptoms, aggressive behaviors. [facility]# [id number]
[2019-01-12] MEDS: APAP/Oxycodone 5/325mg Tab PO PRN ×2 (05:20→16:23)
[2019-01-12 06:04] LABS: A1C 10.6 % (4.8-5.6)
[2019-01-12] MEDS: INSULIN LISPRO SLIDING SCALE 100 UNITS/ML UNIT SUBQ SCH ×4 (06:32→21:21)
[2019-01-12] MEDS: Levothyroxine 0.075 Mg Tab PO SCH (06:37)
[2019-01-12] MEDS: Albuterol/Ipratropium Neb 3 ML AERS HHN PRN ×4 (07:22→23:28)
[2019-01-12] MEDS: Multivitamin Tab PO SCH (08:50)
[2019-01-12] MEDS: Vitamin B Complex w/Vitamin C Tab PO SCH (08:50)
[2019-01-12] MEDS: Fluticasone Propionate Nasal 1 SPR SPR NS SCH (08:51)
--- NOTE | 2019-01-12 16:01 | General Progress Note ---
Subjective - Review of Systems Service Date: 01/12/19 Subjective: resting comfortably no distress Objective - Results Result Diagrams: 01/10/19 15:10 01/10/19 15:10 Recent Labs: Laboratory Last Values WBC 8.4 Th/cmm (4.8-10.8) 01/10/19 15:10 RBC 5.16 Mil/cmm (3.80-5.20) 01/10/19 15:10 Hgb 14.9 gm/dL (12-16) 01/10/19 15:10 Hct 44.3 % (41.0-60) 01/10/19 15:10 MCV 85.8 fl (81-100) 01/10/19 15:10 MCH 28.9 pg (27.0-31.0) 01/10/19 15:10 MCHC Differential 33.7 pg (28.0-36.0) 01/10/19 15:10 RDW 12.1 % (11.5-20.0) 01/10/19 15:10 Plt Count 291 Th/cmm (150-400) 01/10/19 15:10 MPV 7.3 fl 01/10/19 15:10 Neutrophils % 59.5 % (40.0-80.0) 01/10/19 15:10 Lymphocytes % 31.2 % (20.0-50.0) 01/10/19 15:10 Monocytes % 5.0 % (2.0-10.0) 01/10/19 15:10 Eosinophils % 4.3 % (0.0-5.0) 01/10/19 15:10 Basophils % 0.0 % (0.0-2.0) 01/10/19 15:10 Sodium 131 mEq/L (136-145) L 01/10/19 15:10 Potassium 4.2 mEq/L (3.5-5.1) 01/10/19 15:10 Chloride 96 mEq/L (98-107) L 01/10/19 15:10 Carbon Dioxide 23.9 mEq/L (21.0-31.0) 01/10/19 15:10 Anion Gap 15.3 (7.0-16.0) 01/10/19 15:10 BUN 18 mg/dL (7-25) 01/10/19 15:10 Creatinine 1.0 mg/dL (0.6-1.2) 01/10/19 15:10 Est GFR ( Amer) TNP 01/10/19 15:10 Est GFR (Non-Af Amer) TNP 01/10/19 15:10 BUN/Creatinine Ratio 18.0 01/10/19 15:10 Glucose 363 mg/dL (70-105) H 01/10/19 15:10 POC Glucose 292 MG/DL (70 - 105) H 01/12/19 11:24 Calcium 9.6 mg/dL (8.6-10.3) 01/10/19 15:10 Total Bilirubin 0.5 mg/dL (0.3-1.0) 01/10/19 15:10 AST 13 U/L (13-39) 01/10/19 15:10 ALT 14 U/L (7-52) 01/10/19 15:10 Alkaline Phosphatase 66 U/L (34-104) 01/10/19 15:10 Total Protein 7.1 gm/dL (6.0-8.3) 01/10/19 15:10 Albumin 3.7 gm/dL (3.7-5.3) 01/10/19 15:10 Globulin 3.4 gm/dL 01/10/19 15:10 Albumin/Globulin Ratio 1.1 (1.0-1.8) 01/10/19 15:10 Triglycerides 417 mg/dL (<150) H 01/10/19 15:10 Cholesterol 188 mg/dL (<200) 01/10/19 15:10 LDL Cholesterol Direct 109 mg/dL (75-193) 01/10/19 15:10 HDL Cholesterol 27 mg/dL (23-92) 01/10/19 15:10 TSH 1.76 uIU/ml (0.34-5.60) 01/10/19 15:10 RPR NONREACTIVE (NONREACTIVE) 01/10/19 15:10 - Physical Exam Vitals and I&O: Vital Signs Temp 98.1 F 01/12/19 04:35 Pulse 75 01/12/19 14:28 Resp 18 01/12/19 14:28 BP 163/92 01/12/19 12:37 Pulse Ox 97 01/12/19 14:28 Intake & Output 01/11/19 01/12/19 01/12/19 18:59 06:59 18:59 Intake Total 1100 480 Balance 1100 480 Intake: Oral 740 480 Other 360 Other: # Voids 4 2 # Bowel Movements 1 Active Medications: Current Medications Acetaminophen (Tylenol Extra Strength) 500 mg PO Q4H PRN PRN Reason: Pain or Fever >101 Stop: 03/12/19 00:41 Al Hydrox/Mg Hydrox/Simethicone (Maalox) 30 ml PO Q4HR PRN PRN Reason: GI DISTRESS Stop: 03/11/19 19:56 Albuterol/Ipratropium (Duoneb Neb) 3 ml HHN Q4H PRN PRN Reason: Wheezing Stop: 03/12/19 00:48 Last Admin: 01/12/19 14:28 Dose: 3 ml Aripiprazole (Abilify) 20 mg PO DAILY [facility]; Protocol Stop: 03/13/19 11:59 Last Admin: 01/12/19 12:37 Dose: 20 mg Aspirin (Ecotrin) 81 mg PO DAILY [facility] Stop: 03/12/19 08:59 Last Admin: 01/12/19 08:50 Dose: 81 mg Atorvastatin Calcium (Lipitor) 20 mg PO HS [facility]; Protocol Stop: 03/12/19 20:59 Last Admin: 01/11/19 21:17 Dose: 20 mg Brimonidine Tartrate (Alphagan 0.1% Oph Soln) 1 drop EACH EYE TID [facility] Stop: 03/12/19 08:59 Last Admin: 01/12/19 13:06 Dose: 1 drop Carvedilol (Coreg) 6.25 mg PO BID [facility] Stop: 03/12/19 08:59 Last Admin: 01/12/19 08:49 Dose: 6.25 mg Docusate Sodium (Colace) 100 mg PO BID [facility] Stop: 03/12/19 08:59 Last Admin: 01/12/19 08:50 Dose: 100 mg Duloxetine HCl (Cymbalta) 60 mg PO DAILY [facility]; Protocol Stop: 03/13/19 11:59 Last Admin: 01/12/19 12:37 Dose: 60 mg Fluticasone Propionate (Flonase) 1 spr NS DAILY [facility] Stop: 03/12/19 08:59 Last Admin: 01/12/19 08:51 Dose: 1 spr Glucagon (Glucagen) 1 mg IM PRN PRN PRN Reason: BS below 70 Stop: 03/11/19 23:24 Haloperidol (Haldol) 7.5 mg PO BID [facility]; Protocol Stop: 03/12/19 08:59 Last Admin: 01/12/19 10:28 Dose: Not Given Hydralazine HCl (Apresoline) 10 mg PO BID [facility] Stop: 03/12/19 08:59 Last Admin: 01/12/19 08:50 Dose: 10 mg Ibuprofen (Motrin) 600 mg PO Q8H PRN PRN Reason: breakthrough pain Stop: 03/12/19 00:35 Last Admin: 01/12/19 09:04 Dose: 600 mg Insulin Glargine (Lantus Insulin) 26 units SUBQ HS [facility] Stop: 03/12/19 20:59 Last Admin: 01/11/19 21:36 Dose: 26 units Insulin Human Lispro (Humalog Insulin Sliding Scale) 0 units SUBQ ACHS [facility]; Protocol Stop: 03/11/19 20:59 Last Admin: 01/12/19 12:36 Dose: 4 units Isosorbide Dinitrate (Isordil) 10 mg PO Q8HR [facility] Stop: 03/12/19 04:59 Last Admin: 01/12/19 12:37 Dose: 10 mg Latanoprost (Xalatan 0.005% [facility]) 1 drop EACH EYE HS [facility] Stop: 03/12/19 20:59 Last Admin: 01/11/19 21:27 Dose: Not Given Levothyroxine Sodium (Synthroid) 0.075 mg PO QDAC [facility] Stop: 03/12/19 07:29 Last Admin: 01/12/19 06:37 Dose: 0.075 mg Loratadine (Claritin) 10 mg PO DAILY [facility] Stop: 03/12/19 08:59 Last Admin: 01/12/19 08:50 Dose: 10 mg Lorazepam (Ativan) 0.5 mg PO Q4HR PRN; Protocol PRN Reason: Anxiety/Agitation Stop: 02/09/19 19:56 Last Admin: 01/11/19 21:18 Dose: 0.5 mg Losartan Potassium (Cozaar) 50 mg PO DAILY [facility] Stop: 03/12/19 08:59 Last Admin: 01/12/19 08:49 Dose: 50 mg Magnesium Hydroxide (Milk Of Magnesia) 30 ml PO HS PRN PRN Reason: Constipation Multivitamins/Vitamin C (Theragran) 1 tab PO DAILY [facility] Stop: 03/12/19 08:59 Last Admin: 01/12/19 08:50 Dose: 1 tab Mupirocin (Bactroban Oint) 1 appl NS BID [facility] Stop: 01/16/19 17:01 Last Admin: 01/12/19 11:18 Dose: 1 appl Nitroglycerin (Nitrostat) 0.4 mg SL Q5MIN PRN PRN Reason: CHEST PAIN Stop: 03/11/19 23:24 Oxycodone/Acetaminophen (Percocet 5/325mg Oral Tab) 1 tab PO Q8H PRN PRN Reason: severe pain (7-10) Stop: 03/12/19 00:44 Last Admin: 01/12/19 05:20 Dose: 1 tab Senna (Senna) 17.2 mg PO HS [facility] Stop: 03/12/19 20:59 Last Admin: 01/11/19 22:00 Dose: Not Given Sodium Phosphate (Fleet Enema) 135 ml RC DAILY PRN PRN Reason: Constipation Stop: 03/11/19 23:24 Vitamin B Complex/Vit C/Folic Acid (Vitamin B Complex W/Vitamin C) 1 tab PO DAILY [facility] Stop: 03/12/19 08:59 Last Admin: 01/12/19 08:50 Dose: 1 tab Zolpidem Tartrate (Ambien) 5 mg PO HS PRN PRN Reason: Insomnia Stop: 03/11/19 19:56 General: No acute distress HEENT: PERRLA Neck: Supple, JVD Cardiovascular: Regular rate, Normal S1, Normal S2 Lungs: Clear to auscultation Abdomen: Bowel sounds, Soft Assessment/Plan - Assessment Assessment: 1.DM. 2.HTN. 3.HYPOTHYROIDISM. 4.PSYCHOSIS - Plan Plan: continue current treatment Nutritional Asmnt/Malnutr-PDOC - Dietary Evaluation Malnutrition Findings (Please click <Entered> for more info): Nutritional Asmnt/Malnutrition Start: 01/11/19 12: 41 Text: Status: Complete Freq: Protocol: Document 01/11/19 12:41 AXEL (Rec: 01/11/19 12:45 AXEL [facility]) Nutritional Asmnt/Malnutrition Patient General Information Nutritional Screening Consult Diagnosis PSYCHOSIS Pertinent Medical Hx/Surgical Hx HTN, DM, HYPOTHYROIDISM, PSYCHOSIS, DJD Subjective Information IA CONSULT: DM PT IS A 78 YEAR OLD FEMALE [facility] AD[facility] ON [facility]/10 D/T AGGRESSIVE BEHAVIOR. PT WAS HERE RECENTLY, DISCHARGED ON . PER MEAL/NUTRITION ACTIVITY RECORD, PT TYPICALLY ATE 100% MEALS. HT: 59 WT: 310 LB (141 KG) ABW: 186 LB (84.66 KG) BMI: 45.78 (OBESE III) GI: WNL, NON-TENDER, LARGE, ROUND BM: NOT NOTED I/O: 240/NOT NOTED SKIN: SKIN BREAKDOWN TO BUTTOCKS AREA LUIS: NOT NOTED DIET ORDER: CCHO 45GM, PUREED ESTIMATED ENERGY NEEDS: (OBESE III, ABW) 9461-7696 KCALS (20-25 KCALS/ KG) 68-85 G PRO (0.8-1.0 G/KG) 7808-1936 ML (25-30 ML/KG) PT PO INTAKE: 100% SNACK PROVIDED. Current Diet Order/ Nutrition Support CCHO 45GM, PUREED Pertinent Medications MAALOX (PRN), ALBUTEROL (PRN), LIPITOR, COREG, COLACE, GLUCAGON (PRN), LANTUS, SYNTHROID, INS-SS, COZAAR, MOM (PRN), THEREGRAN, SENNA, FLEET ENEMA (PRN), VIT B COMLPEX WITH VIT C Pertinent Labs 01/10: NA 131, GLUCOSE 363 POC GLUCOSE (LAST 24 HOURS): 257, 250 Nutritional Hx/Data Height 1.75 m Height (Calculated Centimeters) 175.3 Current Weight (lbs) 140.614 kg Weight (Calculated Kilograms) 140.6 Weight (Calculated Grams) 123937.6 [place] Body Weight 145 % [place] Body Weight 214 Body Mass Index (BMI) 45.8 Weight Status Morbidly Obese GI Symptoms GI Symptoms None Last BM NOT NOTED Skin Integrity/Comment: SKIN BREAKDOWN TO BUTTOCKS AREA LUIS: NOT NOTED Current %PO Good (75-100%) Estimated Nutritional Goals BEE in Kcals: Adj wt of IBW Calories/Kcals/Kg 20-25 Kcals Calculated 7517-8188 Protein: Adj wt of IBW Protein g/k.8-1.0 Protein Calculated 68-85 Fluid: ml 3449-2882 ML (25-30 ML/KG) Nutritional Problem 1. Problem Problem ALTERED NUTRITION RELATED LABS Etiology R/T ENDOCRINE DYSFUNCTION Signs/Symptoms: AEB HX DM AND GLUCOSE 363 Malnutrition Related to Morbid Obesity Malnutrition related to morbid obesity Weight 200% of ideal wt Query Text:(Any 1 Criteria met) Malnutrition related to morbid obesity Yes Intervention/Recommendation Comments 1. CONTINUE WITH [facility] 45GM, PUREED DIET ORDERED. 2. CONTNIUE ANTIHYPERGLYCEMIC MEDICATION FOR GLUCOSE CONTROL PER MD ORDER. Expected Outcomes/Goals Expected Outcomes/Goals 1. PO INTAKE TO MEET 75% OF NUTRITIONAL NEEDS. 2. MONITOR PO INTAKE, WT, NUTRITION RELATED LABS AND SKIN INTEGRITY. 3. F/U LOW RISK IN 7 DAYS, 01/18
[2019-01-12] MEDS: Atorvastatin Calcium 10 MG TAB PO SCH (21:20)
[2019-01-12] MEDS: Insulin Glargine 100 units/ml 10ml Vial SUBQ SCH (21:21)
[2019-01-13] MEDS: APAP/Oxycodone 5/325mg Tab PO PRN ×3 (00:35→17:17)
[2019-01-13] MEDS: Albuterol/Ipratropium Neb 3 ML AERS HHN PRN ×2 (06:38→14:25)
[2019-01-13] MEDS: INSULIN LISPRO SLIDING SCALE 100 UNITS/ML UNIT SUBQ SCH ×4 (06:41→21:42)
[2019-01-13] MEDS: Levothyroxine 0.075 Mg Tab PO SCH (06:41)
[2019-01-13] MEDS: Multivitamin Tab PO SCH (08:52)
[2019-01-13] MEDS: Fluticasone Propionate Nasal 1 SPR SPR NS SCH (08:52)
[2019-01-13] MEDS: Vitamin B Complex w/Vitamin C Tab PO SCH (08:53)
--- NOTE | 2019-01-13 13:13 | General Progress Note ---
Subjective - Review of Systems Service Date: 01/13/19 Subjective: resting comfortably no distress Objective - Results Result Diagrams: 01/10/19 15:10 01/10/19 15:10 Recent Labs: Laboratory Last Values WBC 8.4 Th/cmm (4.8-10.8) 01/10/19 15:10 RBC 5.16 Mil/cmm (3.80-5.20) 01/10/19 15:10 Hgb 14.9 gm/dL (12-16) 01/10/19 15:10 Hct 44.3 % (41.0-60) 01/10/19 15:10 MCV 85.8 fl (81-100) 01/10/19 15:10 MCH 28.9 pg (27.0-31.0) 01/10/19 15:10 MCHC Differential 33.7 pg (28.0-36.0) 01/10/19 15:10 RDW 12.1 % (11.5-20.0) 01/10/19 15:10 Plt Count 291 Th/cmm (150-400) 01/10/19 15:10 MPV 7.3 fl 01/10/19 15:10 Neutrophils % 59.5 % (40.0-80.0) 01/10/19 15:10 Lymphocytes % 31.2 % (20.0-50.0) 01/10/19 15:10 Monocytes % 5.0 % (2.0-10.0) 01/10/19 15:10 Eosinophils % 4.3 % (0.0-5.0) 01/10/19 15:10 Basophils % 0.0 % (0.0-2.0) 01/10/19 15:10 Sodium 131 mEq/L (136-145) L 01/10/19 15:10 Potassium 4.2 mEq/L (3.5-5.1) 01/10/19 15:10 Chloride 96 mEq/L (98-107) L 01/10/19 15:10 Carbon Dioxide 23.9 mEq/L (21.0-31.0) 01/10/19 15:10 Anion Gap 15.3 (7.0-16.0) 01/10/19 15:10 BUN 18 mg/dL (7-25) 01/10/19 15:10 Creatinine 1.0 mg/dL (0.6-1.2) 01/10/19 15:10 Est GFR ( Amer) TNP 01/10/19 15:10 Est GFR (Non-Af Amer) TNP 01/10/19 15:10 BUN/Creatinine Ratio 18.0 01/10/19 15:10 Glucose 363 mg/dL (70-105) H 01/10/19 15:10 POC Glucose 245 MG/DL (70 - 105) H 01/13/19 11:18 Calcium 9.6 mg/dL (8.6-10.3) 01/10/19 15:10 Total Bilirubin 0.5 mg/dL (0.3-1.0) 01/10/19 15:10 AST 13 U/L (13-39) 01/10/19 15:10 ALT 14 U/L (7-52) 01/10/19 15:10 Alkaline Phosphatase 66 U/L (34-104) 01/10/19 15:10 Total Protein 7.1 gm/dL (6.0-8.3) 01/10/19 15:10 Albumin 3.7 gm/dL (3.7-5.3) 01/10/19 15:10 Globulin 3.4 gm/dL 01/10/19 15:10 Albumin/Globulin Ratio 1.1 (1.0-1.8) 01/10/19 15:10 Triglycerides 417 mg/dL (<150) H 01/10/19 15:10 Cholesterol 188 mg/dL (<200) 01/10/19 15:10 LDL Cholesterol Direct 109 mg/dL (75-193) 01/10/19 15:10 HDL Cholesterol 27 mg/dL (23-92) 01/10/19 15:10 TSH 1.76 uIU/ml (0.34-5.60) 01/10/19 15:10 RPR NONREACTIVE (NONREACTIVE) 01/10/19 15:10 - Physical Exam Vitals and I&O: Vital Signs Temp 97.4 F 01/13/19 06:37 Pulse 78 01/13/19 08:52 Resp 18 01/13/19 06:41 BP 150/74 01/13/19 08:52 Pulse Ox 96 01/13/19 06:41 Intake & Output 01/12/19 01/13/19 01/13/19 18:59 06:59 18:59 Intake Total 1100 480 Balance 1100 480 Intake: Oral 740 480 Other 360 Other: # Voids 3 3 # Bowel Movements 1 0 Active Medications: Current Medications Acetaminophen (Tylenol Extra Strength) 500 mg PO Q4H PRN PRN Reason: Pain or Fever >101 Stop: 03/12/19 00:41 Al Hydrox/Mg Hydrox/Simethicone (Maalox) 30 ml PO Q4HR PRN PRN Reason: GI DISTRESS Stop: 03/11/19 19:56 Albuterol/Ipratropium (Duoneb Neb) 3 ml HHN Q4H PRN PRN Reason: Wheezing Stop: 03/12/19 00:48 Last Admin: 01/13/19 06:38 Dose: 3 ml Aripiprazole (Abilify) 20 mg PO DAILY [facility]; Protocol Stop: 03/13/19 11:59 Last Admin: 01/13/19 08:51 Dose: 20 mg Aspirin (Ecotrin) 81 mg PO DAILY [facility] Stop: 03/12/19 08:59 Last Admin: 01/13/19 08:51 Dose: 81 mg Atorvastatin Calcium (Lipitor) 20 mg PO HS [facility]; Protocol Stop: 03/12/19 20:59 Last Admin: 01/12/19 21:20 Dose: 20 mg Brimonidine Tartrate (Alphagan 0.1% Oph Soln) 1 drop EACH EYE TID [facility] Stop: 03/12/19 08:59 Last Admin: 01/13/19 08:51 Dose: 1 drop Carvedilol (Coreg) 6.25 mg PO BID [facility] Stop: 03/12/19 08:59 Last Admin: 01/13/19 08:51 Dose: 6.25 mg Docusate Sodium (Colace) 100 mg PO BID [facility] Stop: 03/12/19 08:59 Last Admin: 01/13/19 08:51 Dose: 100 mg Duloxetine HCl (Cymbalta) 60 mg PO DAILY [facility]; Protocol Stop: 03/13/19 11:59 Last Admin: 01/13/19 08:52 Dose: 60 mg Fluticasone Propionate (Flonase) 1 spr NS DAILY [facility] Stop: 03/12/19 08:59 Last Admin: 01/13/19 08:52 Dose: 1 spr Glucagon (Glucagen) 1 mg IM PRN PRN PRN Reason: BS below 70 Stop: 03/11/19 23:24 Haloperidol (Haldol) 7.5 mg PO BID [facility]; Protocol Stop: 03/12/19 08:59 Last Admin: 01/13/19 08:51 Dose: 7.5 mg Hydralazine HCl (Apresoline) 10 mg PO BID [facility] Stop: 03/12/19 08:59 Last Admin: 01/13/19 08:52 Dose: 10 mg Ibuprofen (Motrin) 600 mg PO Q8H PRN PRN Reason: breakthrough pain Stop: 03/12/19 00:35 Last Admin: 01/13/19 06:42 Dose: 600 mg Insulin Glargine (Lantus Insulin) 26 units SUBQ HS [facility] Stop: 03/12/19 20:59 Last Admin: 01/12/19 21:21 Dose: 26 units Insulin Human Lispro (Humalog Insulin Sliding Scale) 0 units SUBQ [facility]; Protocol Stop: 03/11/19 20:59 Last Admin: 01/13/19 12:05 Dose: 2 units Isosorbide Dinitrate (Isordil) 10 mg PO Q8HR [facility] Stop: 03/12/19 04:59 Last Admin: 01/13/19 04:53 Dose: 10 mg [facility] 1 drop EACH EYE [facility] Stop: 03/12/19 20:59 Last Admin: 01/12/19 21:23 Dose: 1 drop Levothyroxine Sodium (Synthroid) 0.075 mg PO QDAC [facility] Stop: 03/12/19 07:29 Last Admin: 01/13/19 06:41 Dose: 0.075 mg Loratadine (Claritin) 10 mg PO DAILY [facility] Stop: 03/12/19 08:59 Last Admin: 01/13/19 08:52 Dose: 10 mg Lorazepam (Ativan) 0.5 mg PO Q4HR PRN; Protocol PRN Reason: Anxiety/Agitation Stop: 02/09/19 19:56 Last Admin: 01/12/19 21:25 Dose: 0.5 mg Losartan Potassium (Cozaar) 50 mg PO DAILY [facility] Stop: 03/12/19 08:59 Last Admin: 01/13/19 08:52 Dose: 50 mg Magnesium Hydroxide (Milk Of Magnesia) 30 ml PO HS PRN PRN Reason: Constipation Multivitamins/Vitamin C (Theragran) 1 tab PO DAILY [facility] Stop: 03/12/19 08:59 Last Admin: 01/13/19 08:52 Dose: 1 tab Mupirocin (Bactroban Oint) 1 appl NS BID [facility] Stop: 01/16/19 17:01 Last Admin: 01/13/19 08:53 Dose: 1 appl Nitroglycerin (Nitrostat) 0.4 mg SL Q5MIN PRN PRN Reason: CHEST PAIN Stop: 03/11/19 23:24 Last Admin: 01/12/19 21:25 Dose: 0.4 mg Oxycodone/Acetaminophen (Percocet 5/325mg Oral Tab) 1 tab PO Q8H PRN PRN Reason: severe pain (7-10) Stop: 03/12/19 00:44 Last Admin: 01/13/19 08:50 Dose: 1 tab Senna (Senna) 17.2 mg PO HS [facility] Stop: 03/12/19 20:59 Last Admin: 01/12/19 21:24 Dose: 17.2 mg Sodium Phosphate (Fleet Enema) 135 ml RC DAILY PRN PRN Reason: Constipation Stop: 03/11/19 23:24 Vitamin B Complex/Vit C/Folic Acid (Vitamin B Complex W/Vitamin C) 1 tab PO DAILY [facility] Stop: 03/12/19 08:59 Last Admin: 01/13/19 08:53 Dose: 1 tab Zolpidem Tartrate (Ambien) 5 mg PO HS PRN PRN Reason: Insomnia Stop: 03/11/19 19:56 Last Admin: 01/12/19 21:25 Dose: 5 mg General: No acute distress HEENT: PERRLA Neck: Supple, JVD Cardiovascular: Regular rate, Normal S1, Normal S2 Lungs: Clear to auscultation Abdomen: Bowel sounds, Soft Assessment/Plan - Assessment Assessment: 1.DM. 2.HTN. 3.HYPOTHYROIDISM. 4.PSYCHOSIS - Plan Plan: continue current treatment Nutritional Asmnt/Malnutr-PDOC - Dietary Evaluation Malnutrition Findings (Please click <Entered> for more info): Nutritional Asmnt/Malnutrition Start: 01/11/19 12: 41 Text: Status: Complete Freq: Protocol: Document 01/11/19 12:41 AXEL (Rec: 01/11/19 12:45 AXEL [email or web address]) Nutritional Asmnt/Malnutrition Patient General Information Nutritional Screening Consult Diagnosis PSYCHOSIS Pertinent Medical Hx/Surgical Hx HTN, DM, HYPOTHYROIDISM, PSYCHOSIS, DJD Subjective Information IA CONSULT: DM PT IS A 78 YEAR OLD FEMALE FROM [facility] AD[facility] ON 01/10 D/T AGGRESSIVE BEHAVIOR. PT WAS HERE RECENTLY, DISCHARGED ON . PER MEAL/NUTRITION ACTIVITY RECORD, PT TYPICALLY ATE 100% MEALS. HT: 59 WT: 310 LB (141 KG) ABW: 186 LB (84.66 KG) BMI: 45.78 (OBESE III) GI: WNL, NON-TENDER, LARGE, ROUND BM: NOT NOTED I/O: 240/NOT NOTED SKIN: SKIN BREAKDOWN TO BUTTOCKS AREA LUIS: NOT NOTED DIET ORDER: CCHO 45GM, PUREED ESTIMATED ENERGY NEEDS: (OBESE III, ABW) 9514-4706 KCALS (20-25 KCALS/ KG) 68-85 G PRO (0.8-1.0 G/KG) 7764-9110 ML (25-30 ML/KG) PT PO INTAKE: 100% SNACK PROVIDED. Current Diet Order/ Nutrition Support CCHO 45GM, PUREED Pertinent Medications MAALOX (PRN), ALBUTEROL (PRN), LIPITOR, COREG, COLACE, GLUCAGON (PRN), LANTUS, SYNTHROID, INS-SS, COZAAR, MOM (PRN), THEREGRAN, SENNA, FLEET ENEMA (PRN), VIT B COMLPEX WITH VIT C Pertinent Labs 01/10: NA 131, GLUCOSE 363 POC GLUCOSE (LAST 24 HOURS): 257, 250 Nutritional Hx/Data Height 1.75 m Height (Calculated Centimeters) 175.3 Current Weight (lbs) 140.614 kg Weight (Calculated Kilograms) 140.6 Weight (Calculated Grams) 989768.6 [place] Body Weight 145 % [place] Body Weight 214 Body Mass Index (BMI) 45.8 Weight Status Morbidly Obese GI Symptoms GI Symptoms None Last BM NOT NOTED Skin Integrity/Comment: SKIN BREAKDOWN TO BUTTOCKS AREA LUIS: NOT NOTED Current %PO Good (75-100%) Estimated Nutritional Goals BEE in Kcals: Adj wt of IBW Calories/Kcals/Kg 20-25 Kcals Calculated 0604-6970 Protein: Adj wt of IBW Protein g/k.8-1.0 Protein Calculated 68-85 Fluid: ml 7660-5550 ML (25-30 ML/KG) Nutritional Problem 1. Problem Problem ALTERED NUTRITION RELATED LABS Etiology R/T ENDOCRINE DYSFUNCTION Signs/Symptoms: AEB HX DM AND GLUCOSE 363 Malnutrition Related to Morbid Obesity Malnutrition related to morbid obesity Weight 200% of ideal wt Query Text:(Any 1 Criteria met) Malnutrition related to morbid obesity Yes Intervention/Recommendation Comments 1. CONTINUE WITH [facility] 45GM, PUREED DIET ORDERED. 2. CONTNIUE ANTIHYPERGLYCEMIC MEDICATION FOR GLUCOSE CONTROL PER MD ORDER. Expected Outcomes/Goals Expected Outcomes/Goals 1. PO INTAKE TO MEET 75% OF NUTRITIONAL NEEDS. 2. MONITOR PO INTAKE, WT, NUTRITION RELATED LABS AND SKIN INTEGRITY. 3. F/U LOW RISK IN 7 DAYS, 01/18
--- NOTE | 2019-01-13 17:47 | Progress Notes ---
DATE: 01/12/2019 SUBJECTIVE: The patient was seen and evaluated. The patient's chart reviewed. Covering for Dr. Velazquez. Today, medication reconciliation, which includes Abilify 20 mg a day, Cymbalta 60 mg a day and also Haldol 7.5 mg p.o. b.i.d. Today on [id number] evaluation, the patient denies any EPS, no tardive dyskinesia. The patient reports that they are trying to prostitute her and believing that her brain is infected with "garbage." ASSESSMENT AND PLAN: Schizophrenia, continues to be delusional, psychotic, although she is turning in 2 different antipsychotic medications. She is tolerating medications well without any complication. We will continue assessing the patient's current medication regimen and continue with primary psychiatrist's treatment plan and goals to further assess the patient's polyantipsychotics. JOB# [id number]
[2019-01-13] MEDS: Insulin Glargine 100 units/ml 10ml Vial SUBQ SCH (21:44)
[2019-01-13] MEDS: Atorvastatin Calcium 10 MG TAB PO SCH (21:50)
--- NOTE | 2019-01-14 05:06 | Progress Notes ---
DATE: 01/13/2019 SUBJECTIVE: The patient was seen and evaluated. The patient's chart was reviewed. Today on [id number] evaluation, the patient denies any side effects to medications, easily irritable, agitated. She feels like she is being held hostage, needing redirection. ASSESSMENT AND PLAN: History of schizophrenia. Continue with the Abilify to target the patient's severe psychotic symptoms of delusions and the Cymbalta to target the patient's depression. We will continue with the current titration of medication ____ that is changed from the Haldol and per primary psychiatrist to continue with the titration, as she is tolerating medications well. [facility]# [id number]
[2019-01-14] MEDS: INSULIN LISPRO SLIDING SCALE 100 UNITS/ML UNIT SUBQ SCH ×4 (06:46→21:48)
[2019-01-14] MEDS: Levothyroxine 0.075 Mg Tab PO SCH (06:57)
[2019-01-14] MEDS: Albuterol/Ipratropium Neb 3 ML AERS HHN PRN (07:32)
[2019-01-14] MEDS: Multivitamin Tab PO SCH (08:44)
[2019-01-14] MEDS: Vitamin B Complex w/Vitamin C Tab PO SCH (08:44)
[2019-01-14] MEDS: Fluticasone Propionate Nasal 1 SPR SPR NS SCH (08:45)
[2019-01-14] MEDS: APAP/Oxycodone 5/325mg Tab PO PRN ×2 (09:12→16:49)
[2019-01-14 18:20] LABS: URINE SOURCE CLEAN C
[2019-01-14 18:23] LABS: URINE BILIRUBIN NEGATIVE (NEGATIVE); URINE BLOOD SMALL (NEGATIVE); URINE GLUCOSE (UA) 100 mg/dL (NEGATIVE); URINE KETONE NEGATIVE (NEGATIVE); URINE LEUKOCYTE ESTERASE MODERATE (NEGATIVE); URINE MICROSCOPIC INDICATED? YES; URINE NITRATE NEGATIVE (NEGATIVE); URINE PH 6.5 (4.6 - 8.0); URINE PROTEIN NEGATIVE (NEGATIVE); URINE UROBILINOGEN 0.2 E.U./dL (0.2 - 1.0)
[2019-01-14 18:34] LABS: URINE CLARITY CLOUDY (CLEAR); URINE COLOR YELLOW
[2019-01-14 18:42] LABS: URINE BACTERIA MANY /hpf (NONE SEEN); URINE EPITHELIAL CELLS FEW /lpf (FEW)
--- NOTE | 2019-01-14 20:38 | Internal Medicine Prog Note ---
Internal Medicine Subjective - Subjective Service Date: 01/14/19 Patient seen and examined:: with staff (SHE IS DOING WELL) Patient is:: awake, verbal, in bed, talking, confused Per staff patient has:: no adverse event Internal Medicine Objective - Results Result Diagrams: 01/10/19 15:10 01/10/19 15:10 Recent Labs: Laboratory Last Values WBC 8.4 Th/cmm (4.8-10.8) 01/10/19 15:10 RBC 5.16 Mil/cmm (3.80-5.20) 01/10/19 15:10 Hgb 14.9 gm/dL (12-16) 01/10/19 15:10 Hct 44.3 % (41.0-60) 01/10/19 15:10 MCV 85.8 fl (81-100) 01/10/19 15:10 MCH 28.9 pg (27.0-31.0) 01/10/19 15:10 MCHC Differential 33.7 pg (28.0-36.0) 01/10/19 15:10 RDW 12.1 % (11.5-20.0) 01/10/19 15:10 Plt Count 291 Th/cmm (150-400) 01/10/19 15:10 MPV 7.3 fl 01/10/19 15:10 Neutrophils % 59.5 % (40.0-80.0) 01/10/19 15:10 Lymphocytes % 31.2 % (20.0-50.0) 01/10/19 15:10 Monocytes % 5.0 % (2.0-10.0) 01/10/19 15:10 Eosinophils % 4.3 % (0.0-5.0) 01/10/19 15:10 Basophils % 0.0 % (0.0-2.0) 01/10/19 15:10 Sodium 131 mEq/L (136-145) L 01/10/19 15:10 Potassium 4.2 mEq/L (3.5-5.1) 01/10/19 15:10 Chloride 96 mEq/L (98-107) L 01/10/19 15:10 Carbon Dioxide 23.9 mEq/L (21.0-31.0) 01/10/19 15:10 Anion Gap 15.3 (7.0-16.0) 01/10/19 15:10 BUN 18 mg/dL (7-25) 01/10/19 15:10 Creatinine 1.0 mg/dL (0.6-1.2) 01/10/19 15:10 Est GFR ( Amer) TNP 01/10/19 15:10 Est GFR (Non-Af Amer) TNP 01/10/19 15:10 BUN/Creatinine Ratio 18.0 01/10/19 15:10 Glucose 363 mg/dL (70-105) H 01/10/19 15:10 POC Glucose 216 MG/DL (70 - 105) H 01/14/19 17:15 Calcium 9.6 mg/dL (8.6-10.3) 01/10/19 15:10 Total Bilirubin 0.5 mg/dL (0.3-1.0) 01/10/19 15:10 AST 13 U/L (13-39) 01/10/19 15:10 ALT 14 U/L (7-52) 01/10/19 15:10 Alkaline Phosphatase 66 U/L (34-104) 01/10/19 15:10 Total Protein 7.1 gm/dL (6.0-8.3) 01/10/19 15:10 Albumin 3.7 gm/dL (3.7-5.3) 01/10/19 15:10 Globulin 3.4 gm/dL 01/10/19 15:10 Albumin/Globulin Ratio 1.1 (1.0-1.8) 01/10/19 15:10 Triglycerides 417 mg/dL (<150) H 01/10/19 15:10 Cholesterol 188 mg/dL (<200) 01/10/19 15:10 LDL Cholesterol Direct 109 mg/dL (75-193) 01/10/19 15:10 HDL Cholesterol 27 mg/dL (23-92) 01/10/19 15:10 TSH 1.76 uIU/ml (0.34-5.60) 01/10/19 15:10 Urine Source CLEAN C 01/14/19 17:00 Urine Color YELLOW 01/14/19 17:00 Urine Clarity CLOUDY (CLEAR) H 01/14/19 17:00 Urine pH 6.5 (4.6 - 8.0) 01/14/19 17:00 Ur Specific [place] <= 1.005 (1.005-1.030) 01/14/19 17:00 Urine Protein NEGATIVE mg/dL (NEGATIVE) 01/14/19 17:00 Urine Glucose (UA) 100 mg/dL (NEGATIVE) H 01/14/19 17:00 Urine Ketones NEGATIVE mg/dL (NEGATIVE) 01/14/19 17:00 Urine Blood SMALL (NEGATIVE) H 01/14/19 17:00 Urine Nitrate NEGATIVE (NEGATIVE) 01/14/19 17:00 Urine Bilirubin NEGATIVE (NEGATIVE) 01/14/19 17:00 Urine Urobilinogen 0.2 E.U./dL (0.2 - 1.0) 01/14/19 17:00 Ur Leukocyte Esterase MODERATE (NEGATIVE) H 01/14/19 17:00 Urine RBC 2-5 /hpf (0-5) 01/14/19 17:00 Urine WBC 6-10 /hpf (0-5) H 01/14/19 17:00 Ur Epithelial Cells FEW /lpf (FEW) 01/14/19 17:00 Urine Bacteria MANY /hpf (NONE SEEN) H 01/14/19 17:00 RPR NONREACTIVE (NONREACTIVE) 01/10/19 15:10 - Physical Exam Vitals and I&O: Vital Signs Temp 97.5 F 01/14/19 19:59 Pulse 77 01/14/19 19:59 Resp 18 01/14/19 19:59 BP 126/66 01/14/19 19:59 Pulse Ox 98 01/14/19 19:59 Intake & Output 01/14/19 01/14/19 01/15/19 06:59 18:59 06:59 Intake Total 120 Balance 120 Intake: Oral 120 Other: # Voids 3 # Bowel Movements 0 Stool Characteristics Soft Formed Brown Active Medications: Current Medications Acetaminophen (Tylenol Extra Strength) 500 mg PO Q4H PRN PRN Reason: Pain or Fever >101 Stop: 03/12/19 00:41 Al Hydrox/Mg Hydrox/Simethicone (Maalox) 30 ml PO Q4HR PRN PRN Reason: GI DISTRESS Stop: 03/11/19 19:56 Albuterol/Ipratropium (Duoneb Neb) 3 ml HHN Q4H PRN PRN Reason: Wheezing Stop: 03/12/19 00:48 Last Admin: 01/14/19 07:32 Dose: 3 ml Aripiprazole (Abilify) 20 mg PO DAILY [facility]; Protocol Stop: 03/13/19 11:59 Last Admin: 01/14/19 08:44 Dose: 20 mg Aspirin (Ecotrin) 81 mg PO DAILY [facility] Stop: 03/12/19 08:59 Last Admin: 01/14/19 08:44 Dose: 81 mg Atorvastatin Calcium (Lipitor) 20 mg PO HS [facility]; Protocol Stop: 03/12/19 20:59 Last Admin: 01/13/19 21:50 Dose: 20 mg Brimonidine Tartrate (Alphagan 0.1% Ophth Soln) 1 drop EACH EYE TID [facility] Stop: 03/12/19 08:59 Last Admin: 01/14/19 14:01 Dose: 1 drop Carvedilol (Coreg) 6.25 mg PO BID [facility] Stop: 03/12/19 08:59 Last Admin: 01/14/19 16:49 Dose: 6.25 mg Docusate Sodium (Colace) 100 mg PO BID [facility] Stop: 03/12/19 08:59 Last Admin: 01/14/19 16:48 Dose: 100 mg Duloxetine HCl (Cymbalta) 60 mg PO DAILY [facility]; Protocol Stop: 03/13/19 11:59 Last Admin: 01/14/19 08:43 Dose: 60 mg Fluticasone Propionate (Flonase) 1 spr NS DAILY [facility] Stop: 03/12/19 08:59 Last Admin: 01/14/19 08:45 Dose: 1 spr Glucagon (Glucagen) 1 mg IM PRN PRN PRN Reason: BS below 70 Stop: 03/11/19 23:24 Haloperidol (Haldol) 7.5 mg PO BID [facility]; Protocol Stop: 03/12/19 08:59 Last Admin: 01/14/19 16:48 Dose: 7.5 mg Hydralazine HCl (Apresoline) 10 mg PO BID [facility] Stop: 03/12/19 08:59 Last Admin: 01/14/19 16:49 Dose: 10 mg Ibuprofen (Motrin) 600 mg PO Q8H PRN PRN Reason: breakthrough pain Stop: 03/12/19 00:35 Last Admin: 01/13/19 22:08 Dose: 600 mg Insulin Glargine (Lantus Insulin) 26 units SUBQ HS [facility] Stop: 03/12/19 20:59 Last Admin: 01/13/19 21:44 Dose: 26 units Insulin Human Lispro (Humalog Insulin Sliding Scale) 0 units SUBQ ACHS [facility]; Protocol Stop: 03/11/19 20:59 Last Admin: 01/14/19 17:33 Dose: 2 units Isosorbide Dinitrate (Isordil) 10 mg PO Q8HR CAL Stop: 03/12/19 04:59 Last Admin: 01/14/19 14:00 Dose: 10 mg Latanoprost (Xalatan 0.005% Ophth Soln) 1 drop EACH EYE HS [facility] Stop: 03/12/19 20:59 Last Admin: 01/13/19 21:46 Dose: 1 drop Levothyroxine Sodium (Synthroid) 0.075 mg PO QDAC [facility] Stop: 03/12/19 07:29 Last Admin: 01/14/19 06:57 Dose: 0.075 mg Loratadine (Claritin) 10 mg PO DAILY [facility] Stop: 03/12/19 08:59 Last Admin: 01/14/19 08:45 Dose: 10 mg Lorazepam (Ativan) 0.5 mg PO Q4HR PRN; Protocol PRN Reason: Anxiety/Agitation Stop: 02/09/19 19:56 Last Admin: 01/13/19 22:09 Dose: 0.5 mg Losartan Potassium (Cozaar) 50 mg PO DAILY [facility] Stop: 03/12/19 08:59 Last Admin: 01/14/19 08:43 Dose: 50 mg Magnesium Hydroxide (Milk Of Magnesia) 30 ml PO HS PRN PRN Reason: Constipation Multivitamins/Vitamin C (Theragran) 1 tab PO DAILY [facility] Stop: 03/12/19 08:59 Last Admin: 01/14/19 08:44 Dose: 1 tab Mupirocin (Bactroban Oint) 1 appl NS BID [facility] Stop: 01/16/19 17:01 Last Admin: 01/14/19 16:50 Dose: 1 appl Nitroglycerin (Nitrostat) 0.4 mg SL Q5MIN PRN PRN Reason: CHEST PAIN Stop: 03/11/19 23:24 Last Admin: 01/12/19 21:25 Dose: 0.4 mg Oxycodone/Acetaminophen (Percocet 5/325mg Oral Tab) 1 tab PO Q8H PRN PRN Reason: severe pain (7-10) Stop: 03/12/19 00:44 Last Admin: 01/14/19 16:49 Dose: 1 tab Senna (Senna) 17.2 mg PO HS CAL Stop: 03/12/19 20:59 Last Admin: 01/13/19 21:50 Dose: 17.2 mg Sodium Phosphate (Fleet Enema) 135 ml RC DAILY PRN PRN Reason: Constipation Stop: 03/11/19 23:24 Vitamin B Complex/Vit C/Folic Acid (Vitamin B Complex W/Vitamin C) 1 tab PO DAILY CAL Stop: 03/12/19 08:59 Last Admin: 01/14/19 08:44 Dose: 1 tab Zolpidem Tartrate (Ambien) 5 mg PO HS PRN PRN Reason: Insomnia Stop: 03/11/19 19:56 Last Admin: 01/13/19 21:50 Dose: 5 mg General: alert HEENT: NC/AT, PERRLA, EOMI, anicteric sclerae, throat clear Neck: Supple, No JVD, No thyromegaly, +2 carotid pulse wo bruit, No LAD Lungs: CTAB Cardiovascular: RRR, Normal S1, Normal S2, without murmur Abdomen: soft, non-tender, non-distended Extremities: clear Neurological: no change Internal Medicine Assmt/Plan - Assessment Assessment: 1.DM. 2.HTN. 3.HYPOTHYROIDISM. 4.PSYCHOSIS - Plan Plan: CONTINUE ON CURRENT MEDICATION AND DIET Nutritional Asmnt/Malnutr-PDOC - Dietary Evaluation Malnutrition Findings (Please click <Entered> for more info): Nutritional Asmnt/Malnutrition Start: 01/11/19 12: 41 Text: Status: Complete Freq: Protocol: Document 01/11/19 12:41 AXEL (Rec: 01/11/19 12:45 [email or web address] [email or web address]) Nutritional Asmnt/Malnutrition Patient General Information Nutritional Screening Consult Diagnosis PSYCHOSIS Pertinent Medical Hx/Surgical Hx HTN, DM, HYPOTHYROIDISM, PSYCHOSIS, DJD Subjective Information IA CONSULT: DM PT IS A 78 YEAR OLD FEMALE FROM [facility] ADM[facility]ED ON 01/10 D/T AGGRESSIVE BEHAVIOR. PT WAS HERE RECENTLY, DISCHARGED ON . PER MEAL/NUTRITION ACTIVITY RECORD, PT TYPICALLY ATE 100% MEALS. HT: 59 WT: 310 LB (141 KG) ABW: 186 LB (84.66 KG) BMI: 45.78 (OBESE III) GI: WNL, NON-TENDER, LARGE, ROUND BM: NOT NOTED I/O: 240/NOT NOTED SKIN: SKIN BREAKDOWN TO BUTTOCKS AREA LUIS: NOT NOTED [facility], PUREED ESTIMATED ENERGY NEEDS: (OBESE III, ABW) [id number] KCALS (20-25 KCALS/ KG) 68-85 G PRO (0.8-1.0 G/KG) 7147-1166 ML (25-30 ML/KG) PT PO INTAKE: 100% SNACK PROVIDED. Current Diet Order/ Nutrition Support CCHO 45GM, PUREED Pertinent Medications MAALOX (PRN), ALBUTEROL (PRN), LIPITOR, COREG, COLACE, GLUCAGON (PRN), LANTUS, SYNTHROID, INS-SS, COZAAR, MOM (PRN), THEREGRAN, SENNA, FLEET ENEMA (PRN), VIT B COMLPEX WITH VIT C Pertinent Labs 01/10: NA 131, GLUCOSE 363 POC GLUCOSE (LAST 24 HOURS): 257, 250 Nutritional Hx/Data Height 1.75 m Height (Calculated Centimeters) 175.3 Current Weight (lbs) 140.614 kg Weight (Calculated Kilograms) 140.6 Weight (Calculated Grams) 637522.6 [place] Body Weight 145 % [place] Body Weight 214 Body Mass Index (BMI) 45.8 Weight Status Morbidly Obese GI Symptoms GI Symptoms None Last BM NOT NOTED Skin Integrity/Comment: SKIN BREAKDOWN TO BUTTOCKS AREA LUIS: NOT NOTED Current %PO Good (75-100%) Estimated Nutritional Goals BEE in Kcals: Adj wt of IBW Calories/Kcals/Kg 20-25 Kcals Calculated 9950-8516 Protein: Adj wt of IBW Protein g/k.8-1.0 Protein Calculated 68-85 Fluid: ml 9412-9483 ML (25-30 ML/KG) Nutritional Problem 1. Problem Problem ALTERED NUTRITION RELATED LABS Etiology R/T ENDOCRINE DYSFUNCTION Signs/Symptoms: AEB HX DM AND GLUCOSE 363 Malnutrition Related to Morbid Obesity Malnutrition related to morbid obesity Weight 200% of ideal wt Query Text:(Any 1 Criteria met) Malnutrition related to morbid obesity Yes Intervention/Recommendation Comments 1. CONTINUE WITH [facility] 45GM, PUREED DIET ORDERED. 2. CONTNIUE ANTIHYPERGLYCEMIC MEDICATION FOR GLUCOSE CONTROL PER MD ORDER. Expected Outcomes/Goals Expected Outcomes/Goals 1. PO INTAKE TO MEET 75% OF NUTRITIONAL NEEDS. 2. MONITOR PO INTAKE, WT, NUTRITION RELATED LABS AND SKIN INTEGRITY. 3. F/U LOW RISK IN 7 DAYS, 01/18
[2019-01-14] MEDS: Insulin Glargine 100 units/ml 10ml Vial SUBQ SCH (21:48)
[2019-01-14] MEDS: Atorvastatin Calcium 10 MG TAB PO SCH (21:58)
[2019-01-15] MEDS: Albuterol/Ipratropium Neb 3 ML AERS HHN PRN (02:47)
[2019-01-15] MEDS: INSULIN LISPRO SLIDING SCALE 100 UNITS/ML UNIT SUBQ SCH ×4 (06:46→21:11)
[2019-01-15] MEDS: APAP/Oxycodone 5/325mg Tab PO PRN ×2 (06:52→16:47)
[2019-01-15] MEDS: Levothyroxine 0.075 Mg Tab PO SCH (06:52)
[2019-01-15] MEDS: Fluticasone Propionate Nasal 1 SPR SPR NS SCH (09:02)
[2019-01-15] MEDS: Vitamin B Complex w/Vitamin C Tab PO SCH (09:03)
[2019-01-15] MEDS: Multivitamin Tab PO SCH (09:03)
--- NOTE | 2019-01-15 09:40 | Progress Notes ---
DATE: 01/14/2019 The patient was apparently aggressive at the care facility. They could not take care of her. The patient is calm right now, cooperative, highly impulsive, highly unpredictable. The patient with history of severe psychotic symptoms with delusions, easily irritable, agitated, concerns that she may act out upon her impulses, strike out at staff, as she has done so in the past, is depressed, withdrawn, mostly keeps to self. Still with some episodes of shouting, yelling, screaming at the top of her lungs. We will continue to monitor. Continue dosing of Abilify. Consider dose titration. JOB# [id number]
--- NOTE | 2019-01-15 20:28 | Internal Medicine Prog Note ---
Internal Medicine Subjective - Subjective Service Date: 01/15/19 Patient seen and examined:: with staff (SHE IS STILL CONFUSED) Patient is:: awake, verbal, in bed, talking, confused Per staff patient has:: no adverse event Internal Medicine Objective - Results Result Diagrams: 01/10/19 15:10 01/10/19 15:10 Recent Labs: Laboratory Last Values WBC 8.4 Th/cmm (4.8-10.8) 01/10/19 15:10 RBC 5.16 Mil/cmm (3.80-5.20) 01/10/19 15:10 Hgb 14.9 gm/dL (12-16) 01/10/19 15:10 Hct 44.3 % (41.0-60) 01/10/19 15:10 MCV 85.8 fl (81-100) 01/10/19 15:10 MCH 28.9 pg (27.0-31.0) 01/10/19 15:10 MCHC Differential 33.7 pg (28.0-36.0) 01/10/19 15:10 RDW 12.1 % (11.5-20.0) 01/10/19 15:10 Plt Count 291 Th/cmm (150-400) 01/10/19 15:10 MPV 7.3 fl 01/10/19 15:10 Neutrophils % 59.5 % (40.0-80.0) 01/10/19 15:10 Lymphocytes % 31.2 % (20.0-50.0) 01/10/19 15:10 Monocytes % 5.0 % (2.0-10.0) 01/10/19 15:10 Eosinophils % 4.3 % (0.0-5.0) 01/10/19 15:10 Basophils % 0.0 % (0.0-2.0) 01/10/19 15:10 Sodium 131 mEq/L (136-145) L 01/10/19 15:10 Potassium 4.2 mEq/L (3.5-5.1) 01/10/19 15:10 Chloride 96 mEq/L (98-107) L 01/10/19 15:10 Carbon Dioxide 23.9 mEq/L (21.0-31.0) 01/10/19 15:10 Anion Gap 15.3 (7.0-16.0) 01/10/19 15:10 BUN 18 mg/dL (7-25) 01/10/19 15:10 Creatinine 1.0 mg/dL (0.6-1.2) 01/10/19 15:10 Est GFR ( Amer) TNP 01/10/19 15:10 Est GFR (Non-Af Amer) TNP 01/10/19 15:10 BUN/Creatinine Ratio 18.0 01/10/19 15:10 Glucose 363 mg/dL (70-105) H 01/10/19 15:10 POC Glucose 292 MG/DL (70 - 105) H 01/15/19 19:48 Calcium 9.6 mg/dL (8.6-10.3) 01/10/19 15:10 Total Bilirubin 0.5 mg/dL (0.3-1.0) 01/10/19 15:10 AST 13 U/L (13-39) 01/10/19 15:10 ALT 14 U/L (7-52) 01/10/19 15:10 Alkaline Phosphatase 66 U/L (34-104) 01/10/19 15:10 Total Protein 7.1 gm/dL (6.0-8.3) 01/10/19 15:10 Albumin 3.7 gm/dL (3.7-5.3) 01/10/19 15:10 Globulin 3.4 gm/dL 01/10/19 15:10 Albumin/Globulin Ratio 1.1 (1.0-1.8) 01/10/19 15:10 Triglycerides 417 mg/dL (<150) H 01/10/19 15:10 Cholesterol 188 mg/dL (<200) 01/10/19 15:10 LDL Cholesterol Direct 109 mg/dL (75-193) 01/10/19 15:10 HDL Cholesterol 27 mg/dL (23-92) 01/10/19 15:10 TSH 1.76 uIU/ml (0.34-5.60) 01/10/19 15:10 Urine Source CLEAN C 01/14/19 17:00 Urine Color YELLOW 01/14/19 17:00 Urine Clarity CLOUDY (CLEAR) H 01/14/19 17:00 Urine pH 6.5 (4.6 - 8.0) 01/14/19 17:00 Ur Specific [place] <= 1.005 (1.005-1.030) 01/14/19 17:00 Urine Protein NEGATIVE mg/dL (NEGATIVE) 01/14/19 17:00 Urine Glucose (UA) 100 mg/dL (NEGATIVE) H 01/14/19 17:00 Urine Ketones NEGATIVE mg/dL (NEGATIVE) 01/14/19 17:00 Urine Blood SMALL (NEGATIVE) H 01/14/19 17:00 Urine Nitrate NEGATIVE (NEGATIVE) 01/14/19 17:00 Urine Bilirubin NEGATIVE (NEGATIVE) 01/14/19 17:00 Urine Urobilinogen 0.2 E.U./dL (0.2 - 1.0) 01/14/19 17:00 Ur Leukocyte Esterase MODERATE (NEGATIVE) H 01/14/19 17:00 Urine RBC 2-5 /hpf (0-5) 01/14/19 17:00 Urine WBC 6-10 /hpf (0-5) H 01/14/19 17:00 Ur Epithelial Cells FEW /lpf (FEW) 01/14/19 17:00 Urine Bacteria MANY /hpf (NONE SEEN) H 01/14/19 17:00 RPR NONREACTIVE (NONREACTIVE) 01/10/19 15:10 - Physical Exam Vitals and I&O: Vital Signs Temp 97.3 F 01/15/19 19:59 Pulse 90 01/15/19 19:59 Resp 18 01/15/19 19:59 BP 152/92 01/15/19 19:59 Pulse Ox 91 01/15/19 19:59 Intake & Output 01/15/19 01/15/19 01/16/19 06:59 18:59 06:59 Intake Total 120 1000 240 Balance 120 1000 240 Intake: Oral 120 1000 240 Other: # Voids 3 4 2 # Bowel Movements 0 1 0 Active Medications: Current Medications Acetaminophen (Tylenol Extra Strength) 500 mg PO Q4H PRN PRN Reason: Pain or Fever >101 Stop: 03/12/19 00:41 Al Hydrox/Mg Hydrox/Simethicone (Maalox) 30 ml PO Q4HR PRN PRN Reason: GI DISTRESS Stop: 03/11/19 19:56 Albuterol/Ipratropium (Duoneb Neb) 3 ml HHN Q4H PRN PRN Reason: Wheezing Stop: 03/12/19 00:48 Last Admin: 01/15/19 02:47 Dose: 3 ml Aripiprazole (Abilify) 30 mg PO DAILY [facility]; Protocol Stop: 03/17/19 08:59 Aspirin (Ecotrin) 81 mg PO DAILY [facility] Stop: 03/12/19 08:59 Last Admin: 01/15/19 09:01 Dose: 81 mg Atorvastatin Calcium (Lipitor) 20 mg PO HS [facility]; Protocol Stop: 03/12/19 20:59 Last Admin: 01/14/19 21:58 Dose: 20 mg Brimonidine Tartrate (Alphagan 0.1% [facility]) 1 drop EACH EYE TID [facility] Stop: 03/12/19 08:59 Last Admin: 01/15/19 14:33 Dose: Not Given Carvedilol (Coreg) 6.25 mg PO BID [facility] Stop: 03/12/19 08:59 Last Admin: 01/15/19 16:46 Dose: 6.25 mg Docusate Sodium (Colace) 100 mg PO BID [facility] Stop: 03/12/19 08:59 Last Admin: 01/15/19 16:46 Dose: 100 mg Duloxetine HCl (Cymbalta) 60 mg PO DAILY [facility]; Protocol Stop: 03/13/19 11:59 Last Admin: 01/15/19 09:02 Dose: 60 mg Fluticasone Propionate (Flonase) 1 spr NS DAILY [facility] Stop: 03/12/19 08:59 Last Admin: 01/15/19 09:02 Dose: 1 spr Glucagon (Glucagen) 1 mg IM PRN PRN PRN Reason: BS below 70 Stop: 03/11/19 23:24 Hydralazine HCl (Apresoline) 10 mg PO BID [facility] Stop: 03/12/19 08:59 Last Admin: 01/15/19 16:46 Dose: 10 mg Ibuprofen (Motrin) 600 mg PO Q8H PRN PRN Reason: breakthrough pain Stop: 03/12/19 00:35 Last Admin: 01/14/19 21:57 Dose: 600 mg Insulin Glargine (Lantus Insulin) 26 units SUBQ HS [facility] Stop: 03/12/19 20:59 Last Admin: 01/14/19 21:48 Dose: 26 units Insulin Human Lispro (Humalog Insulin Sliding Scale) 0 units SUBQ ACHS [facility]; Protocol Stop: 03/11/19 20:59 Last Admin: 01/15/19 16:45 Dose: 2 units Isosorbide Dinitrate (Isordil) 10 mg PO Q8HR [facility] Stop: 03/12/19 04:59 Last Admin: 01/15/19 14:33 Dose: Not Given Latanoprost (Xalatan 0.005% Ophth Soln) 1 drop EACH EYE HS CAL Stop: 03/12/19 20:59 Last Admin: 01/14/19 21:47 Dose: Not Given Levothyroxine Sodium (Synthroid) 0.075 mg PO QDAC [facility] Stop: 03/12/19 07:29 Last Admin: 01/15/19 06:52 Dose: 0.075 mg Loratadine (Claritin) 10 mg PO DAILY [facility] Stop: 03/12/19 08:59 Last Admin: 01/15/19 09:02 Dose: 10 mg Lorazepam (Ativan) 0.5 mg PO Q4HR PRN; Protocol PRN Reason: Anxiety/Agitation Stop: 02/09/19 19:56 Last Admin: 01/14/19 23:13 Dose: 0.5 mg Losartan Potassium (Cozaar) 50 mg PO DAILY [facility] Stop: 03/12/19 08:59 Last Admin: 01/15/19 09:02 Dose: 50 mg Magnesium Hydroxide (Milk Of Magnesia) 30 ml PO HS PRN PRN Reason: Constipation Multivitamins/Vitamin C (Theragran) 1 tab PO DAILY [facility] Stop: 03/12/19 08:59 Last Admin: 01/15/19 09:03 Dose: 1 tab Mupirocin (Bactroban Oint) 1 appl NS BID [facility] Stop: 01/16/19 17:01 Last Admin: 01/15/19 16:46 Dose: 1 appl Nitroglycerin (Nitrostat) 0.4 mg SL Q5MIN PRN PRN Reason: CHEST PAIN Stop: 03/11/19 23:24 Last Admin: 01/12/19 21:25 Dose: 0.4 mg Oxycodone/Acetaminophen (Percocet 5/325mg Oral Tab) 1 tab PO Q8H PRN PRN Reason: severe pain (7-10) Stop: 03/12/19 00:44 Last Admin: 01/15/19 16:47 Dose: 1 tab Senna (Senna) 17.2 mg PO HS [facility] Stop: 03/12/19 20:59 Last Admin: 01/14/19 21:58 Dose: 17.2 mg Sodium Phosphate (Fleet Enema) 135 ml RC DAILY PRN PRN Reason: Constipation Stop: 03/11/19 23:24 Vitamin B Complex/Vit C/Folic Acid (Vitamin B Complex W/Vitamin C) 1 tab PO DAILY [facility] Stop: 03/12/19 08:59 Last Admin: 01/15/19 09:03 Dose: 1 tab Zolpidem Tartrate (Ambien) 5 mg PO HS PRN PRN Reason: Insomnia Stop: 03/11/19 19:56 Last Admin: 01/13/19 21:50 Dose: 5 mg General: alert HEENT: NC/AT, PERRLA, EOMI, anicteric sclerae, throat clear Neck: Supple, No JVD, No thyromegaly, +2 carotid pulse wo bruit, No LAD Lungs: CTAB Cardiovascular: RRR, Normal S1, Normal S2, without murmur Abdomen: soft, non-tender, non-distended Extremities: clear Neurological: no change Internal Medicine Assmt/Plan - Assessment Assessment: 1.DM. 2.HTN. 3.HYPOTHYROIDISM. 4.PSYCHOSIS - Plan Plan: CONTINUE ON CURRENT MEDICATION AND DIET Nutritional Asmnt/Malnutr-PDOC - Dietary Evaluation Malnutrition Findings (Please click <Entered> for more info): Nutritional Asmnt/Malnutrition Start: 01/11/19 12: 41 Text: Status: Complete Freq: Protocol: Document 01/11/19 12:41 AXEL (Rec: 01/11/19 12:45 [email or web address] [email or web address]) Nutritional Asmnt/Malnutrition Patient General Information Nutritional Screening Consult Diagnosis PSYCHOSIS Pertinent Medical Hx/Surgical Hx HTN, DM, HYPOTHYROIDISM, PSYCHOSIS, DJD Subjective Information IA CONSULT: DM PT IS A 78 YEAR OLD FEMALE FROM [facility] ADMITTED ON 01/10 D/T AGGRESSIVE BEHAVIOR. PT WAS HERE RECENTLY, DISCHARGED ON . PER MEAL/NUTRITION ACTIVITY RECORD, PT TYPICALLY ATE 100% MEALS. HT: 59 WT: 310 LB (141 KG) ABW: 186 LB (84.66 KG) BMI: 45.78 (OBESE III) GI: WNL, NON-TENDER, LARGE, ROUND BM: NOT NOTED I/O: 240/NOT NOTED SKIN: SKIN BREAKDOWN TO BUTTOCKS AREA LUIS: NOT NOTED DIET ORDER: CCHO 45GM, PUREED ESTIMATED ENERGY NEEDS: (OBESE III, ABW) 3095-0084 KCALS (20-25 KCALS/ KG) 68-85 G PRO (0.8-1.0 G/KG) 7846-5972 ML (25-30 ML/KG) PT PO INTAKE: 100% SNACK PROVIDED. Current Diet Order/ Nutrition Support CCHO 45GM, PUREED Pertinent Medications MAALOX (PRN), ALBUTEROL (PRN), LIPITOR, COREG, COLACE, GLUCAGON (PRN), LANTUS, SYNTHROID, INS-SS, COZAAR, MOM (PRN), THEREGRAN, SENNA, FLEET ENEMA (PRN), VIT B COMLPEX WITH VIT C Pertinent Labs 01/10: NA 131, GLUCOSE 363 POC GLUCOSE (LAST 24 HOURS): 257, 250 Nutritional Hx/Data Height 1.75 m Height (Calculated Centimeters) 175.3 Current Weight (lbs) 140.614 kg Weight (Calculated Kilograms) 140.6 Weight (Calculated Grams) 215725.6 [place] Body Weight 145 % [place] Body Weight 214 Body Mass Index (BMI) 45.8 Weight Status Morbidly Obese GI Symptoms GI Symptoms None Last BM NOT NOTED Skin Integrity/Comment: SKIN BREAKDOWN TO BUTTOCKS AREA LUIS: NOT NOTED Current %PO Good (75-100%) Estimated Nutritional Goals BEE in Kcals: Adj wt of IBW Calories/Kcals/Kg 20-25 Kcals Calculated 5848-1243 Protein: Adj wt of IBW Protein g/k.8-1.0 Protein Calculated 68-85 Fluid: ml 7529-4849 ML (25-30 ML/KG) Nutritional Problem 1. Problem Problem ALTERED NUTRITION RELATED LABS Etiology R/T ENDOCRINE DYSFUNCTION Signs/Symptoms: AEB HX DM AND GLUCOSE 363 Malnutrition Related to Morbid Obesity Malnutrition related to morbid obesity Weight 200% of ideal wt Query Text:(Any 1 Criteria met) Malnutrition related to morbid obesity Yes Intervention/Recommendation Comments [facility]. [facility], PUREED DIET ORDERED. 2. CONTNIUE ANTIHYPERGLYCEMIC MEDICATION FOR GLUCOSE CONTROL PER MD ORDER. Expected Outcomes/Goals Expected Outcomes/Goals 1. PO INTAKE TO MEET 75% OF NUTRITIONAL NEEDS. 2. MONITOR PO INTAKE, WT, NUTRITION RELATED LABS AND SKIN INTEGRITY. 3. F/U LOW RISK IN 7 DAYS, 01/18
[2019-01-15] MEDS: Atorvastatin Calcium 10 MG TAB PO SCH (21:07)
[2019-01-15] MEDS: Insulin Glargine 100 units/ml 10ml Vial SUBQ SCH (21:11)
[2019-01-16] MEDS: INSULIN LISPRO SLIDING SCALE 100 UNITS/ML UNIT SUBQ SCH ×3 (04:07→21:06)
[2019-01-16] MEDS: Multivitamin Tab PO SCH (09:17)
[2019-01-16] MEDS: Fluticasone Propionate Nasal 1 SPR SPR NS SCH (09:22)
--- NOTE | 2019-01-16 11:07 | Progress Notes ---
DATE: 01/15/2019 SUBJECTIVE: An 78-year-old female, on hospitalization, aggressive at the care facility, guarded on exam. Mood "okay." She remains quiet, but impulsive, very unpredictable. One moment, she can be very calm and cooperative. The next moment, she can start yelling, screaming, throwing things, sometimes forgetful and more confused and other times pleasant now, but again her mood is very unpredictable. We will continue to monitor. This is a patient of Dr. Velazquez. I am covering in his absence. Still labile, irritable, sometimes uncooperative, demanding, angry, sometimes verbally abusing staff, yelling, screaming, shouting, resistive to care. Medications were noted. We will try to work on her insight and impulse control. We will continue to titrate medications. JOB# [id number]
[2019-01-16] MEDS: Vitamin B Complex w/Vitamin C Tab PO SCH (11:18)
--- NOTE | 2019-01-16 13:12 | Internal Medicine Prog Note ---
Internal Medicine Subjective - Subjective Service Date: 01/16/19 Patient seen and examined:: with staff (SHE IS DOING BETTER) Patient is:: awake, verbal, in bed, talking, confused Per staff patient has:: no adverse event Internal Medicine Objective - Results Result Diagrams: 01/10/19 15:10 01/10/19 15:10 Recent Labs: Laboratory Last Values WBC 8.4 Th/cmm (4.8-10.8) 01/10/19 15:10 RBC 5.16 Mil/cmm (3.80-5.20) 01/10/19 15:10 Hgb 14.9 gm/dL (12-16) 01/10/19 15:10 Hct 44.3 % (41.0-60) 01/10/19 15:10 MCV 85.8 fl (81-100) 01/10/19 15:10 MCH 28.9 pg (27.0-31.0) 01/10/19 15:10 MCHC Differential 33.7 pg (28.0-36.0) 01/10/19 15:10 RDW 12.1 % (11.5-20.0) 01/10/19 15:10 Plt Count 291 Th/cmm (150-400) 01/10/19 15:10 MPV 7.3 fl 01/10/19 15:10 Neutrophils % 59.5 % (40.0-80.0) 01/10/19 15:10 Lymphocytes % 31.2 % (20.0-50.0) 01/10/19 15:10 Monocytes % 5.0 % (2.0-10.0) 01/10/19 15:10 Eosinophils % 4.3 % (0.0-5.0) 01/10/19 15:10 Basophils % 0.0 % (0.0-2.0) 01/10/19 15:10 Sodium 131 mEq/L (136-145) L 01/10/19 15:10 Potassium 4.2 mEq/L (3.5-5.1) 01/10/19 15:10 Chloride 96 mEq/L (98-107) L 01/10/19 15:10 Carbon Dioxide 23.9 mEq/L (21.0-31.0) 01/10/19 15:10 Anion Gap 15.3 (7.0-16.0) 01/10/19 15:10 BUN 18 mg/dL (7-25) 01/10/19 15:10 Creatinine 1.0 mg/dL (0.6-1.2) 01/10/19 15:10 Est GFR ( Amer) TNP 01/10/19 15:10 Est GFR (Non-Af Amer) TNP 01/10/19 15:10 BUN/Creatinine Ratio 18.0 01/10/19 15:10 Glucose 363 mg/dL (70-105) H 01/10/19 15:10 POC Glucose 255 MG/DL (70 - 105) H 01/16/19 11:54 Calcium 9.6 mg/dL (8.6-10.3) 01/10/19 15:10 Total Bilirubin 0.5 mg/dL (0.3-1.0) 01/10/19 15:10 AST 13 U/L (13-39) 01/10/19 15:10 ALT 14 U/L (7-52) 01/10/19 15:10 Alkaline Phosphatase 66 U/L (34-104) 01/10/19 15:10 Total Protein 7.1 gm/dL (6.0-8.3) 01/10/19 15:10 Albumin 3.7 gm/dL (3.7-5.3) 01/10/19 15:10 Globulin 3.4 gm/dL 01/10/19 15:10 Albumin/Globulin Ratio 1.1 (1.0-1.8) 01/10/19 15:10 Triglycerides 417 mg/dL (<150) H 01/10/19 15:10 Cholesterol 188 mg/dL (<200) 01/10/19 15:10 LDL Cholesterol Direct 109 mg/dL (75-193) 01/10/19 15:10 HDL Cholesterol 27 mg/dL (23-92) 01/10/19 15:10 TSH 1.76 uIU/ml (0.34-5.60) 01/10/19 15:10 Urine Source CLEAN C 01/14/19 17:00 Urine Color YELLOW 01/14/19 17:00 Urine Clarity CLOUDY (CLEAR) H 01/14/19 17:00 Urine pH 6.5 (4.6 - 8.0) 01/14/19 17:00 Ur Specific [place] <= 1.005 (1.005-1.030) 01/14/19 17:00 Urine Protein NEGATIVE mg/dL (NEGATIVE) 01/14/19 17:00 Urine Glucose (UA) 100 mg/dL (NEGATIVE) H 01/14/19 17:00 Urine Ketones NEGATIVE mg/dL (NEGATIVE) 01/14/19 17:00 Urine Blood SMALL (NEGATIVE) H 01/14/19 17:00 Urine Nitrate NEGATIVE (NEGATIVE) 01/14/19 17:00 Urine Bilirubin NEGATIVE (NEGATIVE) 01/14/19 17:00 Urine Urobilinogen 0.2 E.U./dL (0.2 - 1.0) 01/14/19 17:00 Ur Leukocyte Esterase MODERATE (NEGATIVE) H 01/14/19 17:00 Urine RBC 2-5 /hpf (0-5) 01/14/19 17:00 Urine WBC 6-10 /hpf (0-5) H 01/14/19 17:00 Ur Epithelial Cells FEW /lpf (FEW) 01/14/19 17:00 Urine Bacteria MANY /hpf (NONE SEEN) H 01/14/19 17:00 RPR NONREACTIVE (NONREACTIVE) 01/10/19 15:10 - Physical Exam Vitals and I&O: Vital Signs Temp 97.3 F 01/15/19 19:59 Pulse 78 01/16/19 09:21 Resp 20 01/16/19 08:10 BP 159/73 01/16/19 09:21 Pulse Ox 98 01/16/19 08:10 Intake & Output 01/15/19 01/16/19 01/16/19 18:59 06:59 18:59 Intake Total 1000 240 Balance 1000 240 Intake: Oral 1000 240 Other: # Voids 4 2 # Bowel Movements 1 0 Active Medications: Current Medications Acetaminophen (Tylenol Extra Strength) 500 mg PO Q4H PRN PRN Reason: Pain or Fever >101 Stop: 03/12/19 00:41 Al Hydrox/Mg Hydrox/Simethicone (Maalox) 30 ml PO Q4HR PRN PRN Reason: GI DISTRESS Stop: 03/11/19 19:56 Albuterol/Ipratropium (Duoneb Neb) 3 ml HHN Q4H PRN PRN Reason: Wheezing Stop: 03/12/19 00:48 Last Admin: 01/15/19 02:47 Dose: 3 ml Aripiprazole (Abilify) 30 mg PO DAILY [facility]; Protocol Stop: 03/17/19 08:59 Last Admin: 01/16/19 09:17 Dose: 30 mg Aspirin (Ecotrin) 81 mg PO DAILY [facility] Stop: 03/12/19 08:59 Last Admin: 01/16/19 09:17 Dose: 81 mg Atorvastatin Calcium (Lipitor) 20 mg PO HS [facility]; Protocol Stop: 03/12/19 20:59 Last Admin: 01/15/19 21:07 Dose: 20 mg Brimonidine Tartrate (Alphagan 0.1% Ophth Soln) 1 drop EACH EYE TID [facility] Stop: 03/12/19 08:59 Last Admin: 01/16/19 09:22 Dose: 1 drop Carvedilol (Coreg) 6.25 mg PO BID [facility] Stop: 03/12/19 08:59 Last Admin: 01/16/19 09:21 Dose: 6.25 mg Docusate Sodium (Colace) 100 mg PO BID [facility] Stop: 03/12/19 08:59 Last Admin: 01/16/19 09:18 Dose: 100 mg Duloxetine HCl (Cymbalta) 60 mg PO DAILY [facility]; Protocol Stop: 03/13/19 11:59 Last Admin: 01/16/19 09:18 Dose: 60 mg Fluticasone Propionate (Flonase) 1 spr NS DAILY [facility] Stop: 03/12/19 08:59 Last Admin: 01/16/19 09:22 Dose: 1 spr Glucagon (Glucagen) 1 mg IM PRN PRN PRN Reason: BS below 70 Stop: 03/11/19 23:24 Hydralazine HCl (Apresoline) 10 mg PO BID [facility] Stop: 03/12/19 08:59 Last Admin: 01/16/19 09:19 Dose: 10 mg Ibuprofen (Motrin) 600 mg PO Q8H PRN PRN Reason: breakthrough pain Stop: 03/12/19 00:35 Last Admin: 01/15/19 23:37 Dose: 600 mg Insulin Glargine (Lantus Insulin) 26 units SUBQ HS [facility] Stop: 03/12/19 20:59 Last Admin: 01/15/19 21:11 Dose: 26 units Insulin Human Lispro (Humalog Insulin Sliding Scale) 0 units SUBQ ACHS [facility]; Protocol Stop: 03/11/19 20:59 Last Admin: 01/16/19 12:33 Dose: 4 units Isosorbide Dinitrate (Isordil) 10 mg PO Q8HR [facility] Stop: 03/12/19 04:59 Last Admin: 01/15/19 21:07 Dose: 10 mg Latanoprost (Xalatan 0.005% Ophth Soln) 1 drop EACH EYE HS [facility] Stop: 03/12/19 20:59 Last Admin: 01/15/19 21:10 Dose: Not Given Levothyroxine Sodium (Synthroid) 0.075 mg PO QDAC [facility] Stop: 03/12/19 07:29 Last Admin: 01/15/19 06:52 Dose: 0.075 mg Loratadine (Claritin) 10 mg PO DAILY [facility] Stop: 03/12/19 08:59 Last Admin: 01/16/19 09:23 Dose: 10 mg Lorazepam (Ativan) 0.5 mg PO Q4HR PRN; Protocol PRN Reason: Anxiety/Agitation Stop: 02/09/19 19:56 Last Admin: 01/14/19 23:13 Dose: 0.5 mg Losartan Potassium (Cozaar) 50 mg PO DAILY [facility] Stop: 03/12/19 08:59 Last Admin: 01/16/19 09:20 Dose: 50 mg Magnesium Hydroxide (Milk Of Magnesia) 30 ml PO HS PRN PRN Reason: Constipation Multivitamins/Vitamin C (Theragran) 1 tab PO DAILY [facility] Stop: 03/12/19 08:59 Last Admin: 01/16/19 09:17 Dose: 1 tab Mupirocin (Bactroban Oint) 1 appl NS BID [facility] Stop: 01/16/19 17:01 Last Admin: 01/16/19 09:24 Dose: 1 appl Nitroglycerin (Nitrostat) 0.4 mg SL Q5MIN PRN PRN Reason: CHEST PAIN Stop: 03/11/19 23:24 Last Admin: 01/12/19 21:25 Dose: 0.4 mg Oxycodone/Acetaminophen (Percocet 5/325mg Oral Tab) 1 tab PO Q8H PRN PRN Reason: severe pain (7-10) Stop: 03/12/19 00:44 Last Admin: 01/15/19 16:47 Dose: 1 tab Senna (Senna) 17.2 mg PO HS CAL Stop: 03/12/19 20:59 Last Admin: 01/15/19 21:07 Dose: 17.2 mg Sodium Phosphate (Fleet Enema) 135 ml RC DAILY PRN PRN Reason: Constipation Stop: 03/11/19 23:24 Vitamin B Complex/Vit C/Folic Acid (Vitamin B Complex W/Vitamin C) 1 tab PO DAILY CAL Stop: 03/12/19 08:59 Last Admin: 01/16/19 11:18 Dose: 1 tab Zolpidem Tartrate (Ambien) 5 mg PO HS PRN PRN Reason: Insomnia Stop: 03/11/19 19:56 Last Admin: 01/13/19 21:50 Dose: 5 mg General: alert HEENT: NC/AT, PERRLA, EOMI, anicteric sclerae, throat clear Neck: Supple, No JVD, No thyromegaly, +2 carotid pulse wo bruit, No LAD Lungs: CTAB Cardiovascular: RRR, Normal S1, Normal S2, without murmur Abdomen: soft, non-tender, non-distended Extremities: clear Neurological: no change Internal Medicine Assmt/Plan - Assessment Assessment: 1.DM. 2.HTN. 3.HYPOTHYROIDISM. 4.PSYCHOSIS - Plan Plan: CONTINUE ON CURRENT MEDICATION AND DIET Nutritional Asmnt/Malnutr-PDOC - Dietary Evaluation Malnutrition Findings (Please click <Entered> for more info): Nutritional Asmnt/Malnutrition Start: 01/11/19 12: 41 Text: Status: Complete Freq: Protocol: Document 01/11/19 12:41 AXEL (Rec: 01/11/19 12:45 [email or web address] [email or web address]) Nutritional Asmnt/Malnutrition Patient General Information Nutritional Screening Consult Diagnosis PSYCHOSIS Pertinent Medical Hx/Surgical Hx HTN, DM, HYPOTHYROIDISM, PSYCHOSIS, DJD Subjective Information IA CONSULT: DM PT IS A 78 YEAR OLD FEMALE [facility] ON [facility] D/T AGGRESSIVE BEHAVIOR. PT WAS HERE RECENTLY, DISCHARGED ON . PER MEAL/NUTRITION ACTIVITY RECORD, PT TYPICALLY ATE 100% MEALS. HT: 59 WT: 310 LB (141 KG) ABW: 186 LB (84.66 KG) BMI: 45.78 (OBESE III) GI: WNL, NON-TENDER, LARGE, ROUND BM: NOT NOTED I/O: 240/NOT NOTED SKIN: SKIN BREAKDOWN TO BUTTOCKS AREA LUIS: NOT NOTED [facility]ET [facility], PUREED ESTIMATED ENERGY NEEDS: (OBESE III, ABW) 6774-9586 KCALS (20-25 KCALS/ KG) 68-85 G PRO (0.8-1.0 G/KG) 5319-2412 ML (25-30 ML/KG) PT PO INTAKE: 100% SNACK PROVIDED. Current Diet Order/ Nutrition Support CCHO 45GM, PUREED Pertinent Medications MAALOX (PRN), ALBUTEROL (PRN), LIPITOR, COREG, COLACE, GLUCAGON (PRN), LANTUS, SYNTHROID, INS-SS, COZAAR, MOM (PRN), THEREGRAN, SENNA, FLEET ENEMA (PRN), VIT B COMLPEX WITH VIT C Pertinent Labs 01/10: NA 131, GLUCOSE 363 POC GLUCOSE (LAST 24 HOURS): 257, 250 Nutritional Hx/Data Height 1.75 m Height (Calculated Centimeters) 175.3 Current Weight (lbs) 140.614 kg Weight (Calculated Kilograms) 140.6 Weight (Calculated Grams) 914586.6 [place] Body Weight 145 % [place] Body Weight 214 Body Mass Index (BMI) 45.8 Weight Status Morbidly Obese GI Symptoms GI Symptoms None Last BM NOT NOTED Skin Integrity/Comment: SKIN BREAKDOWN TO BUTTOCKS AREA LUIS: NOT NOTED Current %PO Good (75-100%) Estimated Nutritional Goals BEE in Kcals: Adj wt of IBW Calories/Kcals/Kg 20-25 Kcals Calculated 8426-3176 Protein: Adj wt of IBW Protein g/k.8-1.0 Protein Calculated 68-85 Fluid: ml 7180-1823 ML (25-30 ML/KG) Nutritional Problem 1. Problem Problem ALTERED NUTRITION RELATED LABS Etiology R/T ENDOCRINE DYSFUNCTION Signs/Symptoms: AEB HX DM AND GLUCOSE 363 Malnutrition Related to Morbid Obesity Malnutrition related to morbid obesity Weight 200% of ideal wt Query Text:(Any 1 Criteria met) Malnutrition related to morbid obesity Yes Intervention/Recommendation Comments 1. CONTINUE WITH [facility], PUREED DIET ORDERED. 2. CONTNIUE ANTIHYPERGLYCEMIC MEDICATION FOR GLUCOSE CONTROL PER MD ORDER. Expected Outcomes/Goals Expected Outcomes/Goals 1. PO INTAKE TO MEET 75% OF NUTRITIONAL NEEDS. 2. MONITOR PO INTAKE, WT, NUTRITION RELATED LABS AND SKIN INTEGRITY. 3. F/U LOW RISK IN 7 DAYS, 01/18
[2019-01-16] MEDS: Acetaminophen 500 MG TAB PO PRN (17:34)
[2019-01-16] MEDS: Atorvastatin Calcium 10 MG TAB PO SCH (21:08)
[2019-01-16] MEDS: Insulin Glargine 100 units/ml 10ml Vial SUBQ SCH (21:11)
[2019-01-17] MEDS: Fluticasone Propionate Nasal 1 SPR SPR NS SCH (00:01)
--- NOTE | 2019-01-17 01:43 | Progress Notes ---
DATE: 01/16/2019 SUBJECTIVE: Chart was reviewed and the patient interviewed. Also discussed the patient's condition with the staff and reviewed records and labs. The patient continued to be angry and in irritable mood. The patient also is verbally abusive to staff and needs close monitoring because of her agitation and aggressive behavior. She is in denial and minimizing her issues and her problems. She also is resisting care. The patient also still has episodes of throwing objects towards other, though yesterday she did not do that. ASSESSMENT: The patient is still agitated and can be dangerous to others. TREATMENT PLAN: Continue to monitor her behavior and her condition closely. Also, we will give the patient today Haldol Deaconate injection. Also, we will continue to work on her poor impulse control. Also today, we will give the patient the long-acting injectable for better compliance with medications since she is refusing to take medications including Cymbalta. JOB# [id number]
[2019-01-17] MEDS: Levothyroxine 0.075 Mg Tab PO SCH (06:52)
[2019-01-17] MEDS: INSULIN LISPRO SLIDING SCALE 100 UNITS/ML UNIT SUBQ SCH ×4 (06:56→21:00)
[2019-01-17] MEDS: Multivitamin Tab PO SCH (10:00)
[2019-01-17] MEDS: Vitamin B Complex w/Vitamin C Tab PO SCH (10:00)
[2019-01-17] MEDS: Haldol Oral Sol.(concentrate) 10 mg/5 mL Udc PO SCH ×2 (10:00→17:02)
[2019-01-17] MEDS: Insulin Glargine 100 units/ml 10ml Vial SUBQ SCH (21:01)
[2019-01-17] MEDS: Atorvastatin Calcium 10 MG TAB PO SCH (21:27)
--- NOTE | 2019-01-17 22:09 | Internal Medicine Prog Note ---
Internal Medicine Subjective - Subjective Service Date: 01/17/19 Patient seen and examined:: without staff (SHE DENIES ANY PAIN OR SOB) Patient is:: awake, verbal, in bed, talking, confused Per staff patient has:: no adverse event Internal Medicine Objective - Results Result Diagrams: 01/10/19 15:10 01/10/19 15:10 Recent Labs: Laboratory Last Values WBC 8.4 Th/cmm (4.8-10.8) 01/10/19 15:10 RBC 5.16 Mil/cmm (3.80-5.20) 01/10/19 15:10 Hgb 14.9 gm/dL (12-16) 01/10/19 15:10 Hct 44.3 % (41.0-60) 01/10/19 15:10 MCV 85.8 fl (81-100) 01/10/19 15:10 MCH 28.9 pg (27.0-31.0) 01/10/19 15:10 MCHC Differential 33.7 pg (28.0-36.0) 01/10/19 15:10 RDW 12.1 % (11.5-20.0) 01/10/19 15:10 Plt Count 291 Th/cmm (150-400) 01/10/19 15:10 MPV 7.3 fl 01/10/19 15:10 Neutrophils % 59.5 % (40.0-80.0) 01/10/19 15:10 Lymphocytes % 31.2 % (20.0-50.0) 01/10/19 15:10 Monocytes % 5.0 % (2.0-10.0) 01/10/19 15:10 Eosinophils % 4.3 % (0.0-5.0) 01/10/19 15:10 Basophils % 0.0 % (0.0-2.0) 01/10/19 15:10 Sodium 131 mEq/L (136-145) L 01/10/19 15:10 Potassium 4.2 mEq/L (3.5-5.1) 01/10/19 15:10 Chloride 96 mEq/L (98-107) L 01/10/19 15:10 Carbon Dioxide 23.9 mEq/L (21.0-31.0) 01/10/19 15:10 Anion Gap 15.3 (7.0-16.0) 01/10/19 15:10 BUN 18 mg/dL (7-25) 01/10/19 15:10 Creatinine 1.0 mg/dL (0.6-1.2) 01/10/19 15:10 Est GFR ( Amer) TNP 01/10/19 15:10 Est GFR (Non-Af Amer) TNP 01/10/19 15:10 BUN/Creatinine Ratio 18.0 01/10/19 15:10 Glucose 363 mg/dL (70-105) H 01/10/19 15:10 POC Glucose 231 MG/DL (70 - 105) H 01/16/19 16:34 Calcium 9.6 mg/dL (8.6-10.3) 01/10/19 15:10 Total Bilirubin 0.5 mg/dL (0.3-1.0) 01/10/19 15:10 AST 13 U/L (13-39) 01/10/19 15:10 ALT 14 U/L (7-52) 01/10/19 15:10 Alkaline Phosphatase 66 U/L (34-104) 01/10/19 15:10 Total Protein 7.1 gm/dL (6.0-8.3) 01/10/19 15:10 Albumin 3.7 gm/dL (3.7-5.3) 01/10/19 15:10 Globulin 3.4 gm/dL 01/10/19 15:10 Albumin/Globulin Ratio 1.1 (1.0-1.8) 01/10/19 15:10 Triglycerides 417 mg/dL (<150) H 01/10/19 15:10 Cholesterol 188 mg/dL (<200) 01/10/19 15:10 LDL Cholesterol Direct 109 mg/dL (75-193) 01/10/19 15:10 HDL Cholesterol 27 mg/dL (23-92) 01/10/19 15:10 TSH 1.76 uIU/ml (0.34-5.60) 01/10/19 15:10 Urine Source CLEAN C 01/14/19 17:00 Urine Color YELLOW 01/14/19 17:00 Urine Clarity CLOUDY (CLEAR) H 01/14/19 17:00 Urine pH 6.5 (4.6 - 8.0) 01/14/19 17:00 Ur Specific [place] <= 1.005 (1.005-1.030) 01/14/19 17:00 Urine Protein NEGATIVE mg/dL (NEGATIVE) 01/14/19 17:00 Urine Glucose (UA) 100 mg/dL (NEGATIVE) H 01/14/19 17:00 Urine Ketones NEGATIVE mg/dL (NEGATIVE) 01/14/19 17:00 Urine Blood SMALL (NEGATIVE) H 01/14/19 17:00 Urine Nitrate NEGATIVE (NEGATIVE) 01/14/19 17:00 Urine Bilirubin NEGATIVE (NEGATIVE) 01/14/19 17:00 Urine Urobilinogen 0.2 E.U./dL (0.2 - 1.0) 01/14/19 17:00 Ur Leukocyte Esterase MODERATE (NEGATIVE) H 01/14/19 17:00 Urine RBC 2-5 /hpf (0-5) 01/14/19 17:00 Urine WBC 6-10 /hpf (0-5) H 01/14/19 17:00 Ur Epithelial Cells FEW /lpf (FEW) 01/14/19 17:00 Urine Bacteria MANY /hpf (NONE SEEN) H 01/14/19 17:00 RPR NONREACTIVE (NONREACTIVE) 01/10/19 15:10 - Physical Exam Vitals and I&O: Vital Signs Temp 99.1 F 01/17/19 20:33 Pulse 80 01/17/19 21:28 Resp 20 01/17/19 20:33 BP 164/89 01/17/19 21:27 Pulse Ox 97 01/17/19 19:14 Intake & Output 01/17/19 01/17/19 01/18/19 06:59 18:59 06:59 Intake Total 1000 240 Balance 1000 240 Intake: Oral 1000 240 Other: # Voids 3 4 2 # Bowel Movements 0 1 0 Stool Characteristics Soft Active Medications: Current Medications Acetaminophen (Tylenol Extra Strength) 500 mg PO Q4H PRN PRN Reason: Pain or Fever >101 Stop: 03/12/19 00:41 Last Admin: 01/16/19 17:34 Dose: 500 mg Al Hydrox/Mg Hydrox/Simethicone (Maalox) 30 ml PO Q4HR PRN PRN Reason: GI DISTRESS Stop: 03/11/19 19:56 Albuterol/Ipratropium (Duoneb Neb) 3 ml HHN Q4H PRN PRN Reason: Wheezing Stop: 03/12/19 00:48 Last Admin: 01/15/19 02:47 Dose: 3 ml Aripiprazole (Abilify) 30 mg PO DAILY [facility]; Protocol Stop: 03/17/19 08:59 Last Admin: 01/17/19 10:00 Dose: 30 mg Aspirin (Ecotrin) 81 mg PO DAILY [facility] Stop: 03/12/19 08:59 Last Admin: 01/17/19 10:00 Dose: 81 mg Atorvastatin Calcium (Lipitor) 20 mg PO HS [facility]; Protocol Stop: 03/12/19 20:59 Last Admin: 01/17/19 21:27 Dose: 20 mg Brimonidine Tartrate (Alphagan 0.1% Oph Soln) 1 drop EACH EYE TID [facility] Stop: 03/12/19 08:59 Last Admin: 01/17/19 21:11 Dose: 1 drop Carvedilol (Coreg) 6.25 mg PO BID [facility] Stop: 03/12/19 08:59 Last Admin: 01/17/19 17:00 Dose: 6.25 mg Docusate Sodium (Colace) 100 mg PO BID [facility] Stop: 03/12/19 08:59 Last Admin: 01/17/19 17:00 Dose: 100 mg Duloxetine HCl (Cymbalta) 60 mg PO DAILY [facility]; Protocol Stop: 03/13/19 11:59 Last Admin: 01/17/19 10:00 Dose: 60 mg Fluticasone Propionate (Flonase) 1 spr NS DAILY [facility] Stop: 03/12/19 08:59 Last Admin: 01/17/19 00:01 Dose: 1 spr Glucagon (Glucagen) 1 mg IM PRN PRN PRN Reason: BS below 70 Stop: 03/11/19 23:24 Haloperidol Decanoate (Haldol Dec) 50 mg IM QMONTH [facility]; Protocol Stop: 03/17/19 15:59 Last Admin: 01/16/19 16:34 Dose: 50 mg Haloperidol Lactate (Haldol Concentrate 10mg/5ml Susp) 5 mg PO BID [facility]; Protocol Stop: 03/18/19 08:59 Last Admin: 01/17/19 17:02 Dose: 5 mg Hydralazine HCl (Apresoline) 10 mg PO BID [facility] Stop: 03/12/19 08:59 Last Admin: 01/17/19 17:01 Dose: 10 mg Hydralazine HCl (Apresoline) 10 mg PO NOW [facility] Stop: 03/18/19 05:39 Last Admin: 01/17/19 05:41 Dose: 10 mg Ibuprofen (Motrin) 600 mg PO Q8H PRN PRN Reason: breakthrough pain Stop: 03/12/19 00:35 Last Admin: 01/17/19 00:03 Dose: 600 mg Insulin Glargine (Lantus Insulin) 26 units SUBQ HS CAL Stop: 03/12/19 20:59 Last Admin: 01/17/19 21:01 Dose: 26 units Insulin Human Lispro (Humalog Insulin Sliding Scale) 0 units SUBQ [facility]; Protocol Stop: 03/11/19 20:59 Last Admin: 01/17/19 21:00 Dose: 4 units Isosorbide Dinitrate (Isordil) 10 mg PO Q8HR CAL Stop: 03/12/19 04:59 Last Admin: 01/17/19 21:27 Dose: 10 mg Latanoprost (Xalatan 0.005% [facility]) 1 drop EACH EYE HS [facility] Stop: 03/12/19 20:59 Last Admin: 01/17/19 21:11 Dose: 1 drop Levothyroxine Sodium (Synthroid) 0.075 mg PO QDAC [facility] Stop: 03/12/19 07:29 Last Admin: 01/17/19 06:52 Dose: 0.075 mg Loratadine (Claritin) 10 mg PO DAILY [facility] Stop: 03/12/19 08:59 Last Admin: 01/17/19 10:00 Dose: 10 mg Lorazepam (Ativan) 0.5 mg PO Q4HR PRN; Protocol PRN Reason: Anxiety/Agitation Stop: 02/09/19 19:56 Last Admin: 01/14/19 23:13 Dose: 0.5 mg Losartan Potassium (Cozaar) 50 mg PO DAILY CAL Stop: 03/12/19 08:59 Last Admin: 01/17/19 10:09 Dose: 50 mg Magnesium Hydroxide (Milk Of Magnesia) 30 ml PO HS PRN PRN Reason: Constipation Multivitamins/Vitamin C (Theragran) 1 tab PO DAILY [facility] Stop: 03/12/19 08:59 Last Admin: 01/17/19 10:00 Dose: 1 tab Nitroglycerin (Nitrostat) 0.4 mg SL Q5MIN PRN PRN Reason: CHEST PAIN Stop: 03/11/19 23:24 Last Admin: 01/12/19 21:25 Dose: 0.4 mg Oxycodone/Acetaminophen (Percocet 5/325mg Oral Tab) 1 tab PO Q8H PRN PRN Reason: severe pain (7-10) Stop: 03/12/19 00:44 Last Admin: 01/15/19 16:47 Dose: 1 tab Senna (Senna) 17.2 mg PO HS CAL Stop: 03/12/19 20:59 Last Admin: 01/17/19 21:27 Dose: 17.2 mg Sodium Phosphate (Fleet Enema) 135 ml RC DAILY PRN PRN Reason: Constipation Stop: 03/11/19 23:24 Vitamin B Complex/Vit C/Folic Acid (Vitamin B Complex W/Vitamin C) 1 tab PO DAILY CAL Stop: 03/12/19 08:59 Last Admin: 01/17/19 10:00 Dose: 1 tab Zolpidem Tartrate (Ambien) 5 mg PO HS PRN PRN Reason: Insomnia Stop: 03/11/19 19:56 Last Admin: 01/17/19 00:03 Dose: 5 mg General: alert HEENT: NC/AT, PERRLA, EOMI, anicteric sclerae, throat clear Neck: Supple, No JVD, No thyromegaly, +2 carotid pulse wo bruit, No LAD Lungs: CTAB Cardiovascular: RRR, Normal S1, Normal S2, without murmur Abdomen: soft, non-tender, non-distended Extremities: clear Neurological: no change Internal Medicine Assmt/Plan - Assessment Assessment: 1.DM. 2.HTN. 3.HYPOTHYROIDISM. 4.PSYCHOSIS - Plan Plan: CONTINUE ON CURRENT MEDICATION AND DIET Nutritional Asmnt/Malnutr-PDOC - Dietary Evaluation Malnutrition Findings (Please click <Entered> for more info): Nutritional Asmnt/Malnutrition Start: 01/11/19 12: 41 Text: Status: Complete Freq: Protocol: Document 01/11/19 12:41 AXEL (Rec: 01/11/19 12:45 [email or web address] [id number]) Nutritional Asmnt/Malnutrition Patient General Information Nutritional Screening Consult Diagnosis PSYCHOSIS Pertinent Medical Hx/Surgical Hx HTN, DM, HYPOTHYROIDISM, PSYCHOSIS, DJD Subjective Information IA CONSULT: DM PT IS A 78 YEAR OLD FEMALE [facility] D/T AGGRESSIVE BEHAVIOR. PT WAS HERE RECENTLY, DISCHARGED ON . PER MEAL/NUTRITION ACTIVITY RECORD, PT TYPICALLY ATE 100% MEALS. HT: 59 WT: 310 LB (141 KG) ABW: 186 LB (84.66 KG) BMI: 45.78 (OBESE III) GI: WNL, NON-TENDER, LARGE, ROUND BM: NOT NOTED I/O: 240/NOT NOTED SKIN: SKIN BREAKDOWN TO BUTTOCKS AREA LUIS: NOT NOTED DIET ORDER: CCHO 45GM, PUREED ESTIMATED ENERGY NEEDS: (OBESE III, ABW) 1052-9877 KCALS (20-25 KCALS/ KG) 68-85 G PRO (0.8-1.0 G/KG) 5052-9186 ML (25-30 ML/KG) PT PO INTAKE: 100% SNACK PROVIDED. Current Diet Order/ Nutrition Support CCHO 45GM, PUREED Pertinent Medications MAALOX (PRN), ALBUTEROL (PRN), LIPITOR, COREG, COLACE, GLUCAGON (PRN), LANTUS, SYNTHROID, INS-SS, COZAAR, MOM (PRN), THEREGRAN, SENNA, FLEET ENEMA (PRN), VIT B COMLPEX WITH VIT C Pertinent Labs 01/10: NA 131, GLUCOSE 363 POC GLUCOSE (LAST 24 HOURS): 257, 250 Nutritional Hx/Data Height 1.75 m Height (Calculated Centimeters) 175.3 Current Weight (lbs) 140.614 kg Weight (Calculated Kilograms) 140.6 Weight (Calculated Grams) 389220.6 [place] Body Weight 145 % [place] Body Weight 214 Body Mass Index (BMI) 45.8 Weight Status Morbidly Obese GI Symptoms GI Symptoms None Last BM NOT NOTED Skin Integrity/Comment: SKIN BREAKDOWN TO BUTTOCKS AREA LUIS: NOT NOTED Current %PO Good (75-100%) Estimated Nutritional Goals BEE in Kcals: Adj wt of IBW Calories/Kcals/Kg 20-25 Kcals Calculated 1339-0948 Protein: Adj wt of IBW Protein g/k.8-1.0 Protein Calculated 68-85 Fluid: ml 3664-1110 ML (25-30 ML/KG) Nutritional Problem 1. Problem Problem ALTERED NUTRITION RELATED LABS Etiology R/T ENDOCRINE DYSFUNCTION Signs/Symptoms: AEB HX DM AND GLUCOSE 363 Malnutrition Related to Morbid Obesity Malnutrition related to morbid obesity Weight 200% of ideal wt Query Text:(Any 1 Criteria met) Malnutrition related to morbid obesity Yes Intervention/Recommendation Comments 1. CONTINUE WITH [facility] 45GM, PUREED DIET ORDERED. 2. CONTNIUE ANTIHYPERGLYCEMIC MEDICATION FOR GLUCOSE CONTROL PER MD ORDER. Expected Outcomes/Goals Expected Outcomes/Goals 1. PO INTAKE TO MEET 75% OF NUTRITIONAL NEEDS. 2. MONITOR PO INTAKE, WT, NUTRITION RELATED LABS AND SKIN INTEGRITY. 3. F/U LOW RISK IN 7 DAYS, 01/18
[2019-01-18] MEDS: Levothyroxine 0.075 Mg Tab PO SCH (06:32)
[2019-01-18] MEDS: INSULIN LISPRO SLIDING SCALE 100 UNITS/ML UNIT SUBQ SCH ×4 (06:36→21:43)
[2019-01-18] MEDS: Multivitamin Tab PO SCH (09:27)
[2019-01-18] MEDS: Vitamin B Complex w/Vitamin C Tab PO SCH (09:28)
[2019-01-18] MEDS: Fluticasone Propionate Nasal 1 SPR SPR NS SCH (09:35)
[2019-01-18] MEDS: Haldol Oral Sol.(concentrate) 10 mg/5 mL Udc PO SCH ×2 (09:50→16:29)
[2019-01-18] MEDS: APAP/Oxycodone 5/325mg Tab PO PRN ×2 (11:18→21:35)
[2019-01-18] MEDS: Atorvastatin Calcium 10 MG TAB PO SCH (21:34)
[2019-01-18] MEDS: Insulin Glargine 100 units/ml 10ml Vial SUBQ SCH (22:00)
--- NOTE | 2019-01-18 23:55 | Internal Medicine Prog Note ---
Internal Medicine Subjective - Subjective Service Date: 01/18/19 Patient seen and examined:: without staff (SHE IS DOING WELL) Patient is:: awake, verbal, in bed, talking, confused Per staff patient has:: no adverse event Internal Medicine Objective - Results Result Diagrams: 01/10/19 15:10 01/10/19 15:10 Recent Labs: Laboratory Last Values WBC 8.4 Th/cmm (4.8-10.8) 01/10/19 15:10 RBC 5.16 Mil/cmm (3.80-5.20) 01/10/19 15:10 Hgb 14.9 gm/dL (12-16) 01/10/19 15:10 Hct 44.3 % (41.0-60) 01/10/19 15:10 MCV 85.8 fl (81-100) 01/10/19 15:10 MCH 28.9 pg (27.0-31.0) 01/10/19 15:10 MCHC Differential 33.7 pg (28.0-36.0) 01/10/19 15:10 RDW 12.1 % (11.5-20.0) 01/10/19 15:10 Plt Count 291 Th/cmm (150-400) 01/10/19 15:10 MPV 7.3 fl 01/10/19 15:10 Neutrophils % 59.5 % (40.0-80.0) 01/10/19 15:10 Lymphocytes % 31.2 % (20.0-50.0) 01/10/19 15:10 Monocytes % 5.0 % (2.0-10.0) 01/10/19 15:10 Eosinophils % 4.3 % (0.0-5.0) 01/10/19 15:10 Basophils % 0.0 % (0.0-2.0) 01/10/19 15:10 Sodium 131 mEq/L (136-145) L 01/10/19 15:10 Potassium 4.2 mEq/L (3.5-5.1) 01/10/19 15:10 Chloride 96 mEq/L (98-107) L 01/10/19 15:10 Carbon Dioxide 23.9 mEq/L (21.0-31.0) 01/10/19 15:10 Anion Gap 15.3 (7.0-16.0) 01/10/19 15:10 BUN 18 mg/dL (7-25) 01/10/19 15:10 Creatinine 1.0 mg/dL (0.6-1.2) 01/10/19 15:10 Est GFR ( Amer) TNP 01/10/19 15:10 Est GFR (Non-Af Amer) TNP 01/10/19 15:10 BUN/Creatinine Ratio 18.0 01/10/19 15:10 Glucose 363 mg/dL (70-105) H 01/10/19 15:10 POC Glucose 231 MG/DL (70 - 105) H 01/16/19 16:34 Calcium 9.6 mg/dL (8.6-10.3) 01/10/19 15:10 Total Bilirubin 0.5 mg/dL (0.3-1.0) 01/10/19 15:10 AST 13 U/L (13-39) 01/10/19 15:10 ALT 14 U/L (7-52) 01/10/19 15:10 Alkaline Phosphatase 66 U/L (34-104) 01/10/19 15:10 Total Protein 7.1 gm/dL (6.0-8.3) 01/10/19 15:10 Albumin 3.7 gm/dL (3.7-5.3) 01/10/19 15:10 Globulin 3.4 gm/dL 01/10/19 15:10 Albumin/Globulin Ratio 1.1 (1.0-1.8) 01/10/19 15:10 Triglycerides 417 mg/dL (<150) H 01/10/19 15:10 Cholesterol 188 mg/dL (<200) 01/10/19 15:10 LDL Cholesterol Direct 109 mg/dL (75-193) 01/10/19 15:10 HDL Cholesterol 27 mg/dL (23-92) 01/10/19 15:10 TSH 1.76 uIU/ml (0.34-5.60) 01/10/19 15:10 Urine Source CLEAN C 01/14/19 17:00 Urine Color YELLOW 01/14/19 17:00 Urine Clarity CLOUDY (CLEAR) H 01/14/19 17:00 Urine pH 6.5 (4.6 - 8.0) 01/14/19 17:00 Ur Specific [place] <= 1.005 (1.005-1.030) 01/14/19 17:00 Urine Protein NEGATIVE mg/dL (NEGATIVE) 01/14/19 17:00 Urine Glucose (UA) 100 mg/dL (NEGATIVE) H 01/14/19 17:00 Urine Ketones NEGATIVE mg/dL (NEGATIVE) 01/14/19 17:00 Urine Blood SMALL (NEGATIVE) H 01/14/19 17:00 Urine Nitrate NEGATIVE (NEGATIVE) 01/14/19 17:00 Urine Bilirubin NEGATIVE (NEGATIVE) 01/14/19 17:00 Urine Urobilinogen 0.2 E.U./dL (0.2 - 1.0) 01/14/19 17:00 Ur Leukocyte Esterase MODERATE (NEGATIVE) H 01/14/19 17:00 Urine RBC 2-5 /hpf (0-5) 01/14/19 17:00 Urine WBC 6-10 /hpf (0-5) H 01/14/19 17:00 Ur Epithelial Cells FEW /lpf (FEW) 01/14/19 17:00 Urine Bacteria MANY /hpf (NONE SEEN) H 01/14/19 17:00 RPR NONREACTIVE (NONREACTIVE) 01/10/19 15:10 - Physical Exam Vitals and I&O: Vital Signs Temp 97.8 F 01/18/19 20:00 Pulse 79 01/18/19 21:34 Resp 19 01/18/19 20:00 BP 166/98 01/18/19 21:34 Pulse Ox 96 01/18/19 20:00 Intake & Output 01/18/19 01/18/19 01/19/19 06:59 18:59 06:59 Intake Total 480 1200 720 Balance 480 1200 720 Intake: Oral 480 1200 720 Other: # Voids 3 5 2 # Bowel Movements 1 0 1 Stool Characteristics Soft Soft Soft Active Medications: Current Medications Acetaminophen (Tylenol Extra Strength) 500 mg PO Q4H PRN PRN Reason: Pain or Fever >101 Stop: 03/12/19 00:41 Last Admin: 01/16/19 17:34 Dose: 500 mg Al Hydrox/Mg Hydrox/Simethicone (Maalox) 30 ml PO Q4HR PRN PRN Reason: GI DISTRESS Stop: 03/11/19 19:56 Albuterol/Ipratropium (Duoneb Neb) 3 ml HHN Q4H PRN PRN Reason: Wheezing Stop: 03/12/19 00:48 Last Admin: 01/15/19 02:47 Dose: 3 ml Aripiprazole (Abilify) 30 mg PO DAILY [facility]; Protocol Stop: 03/17/19 08:59 Last Admin: 01/18/19 09:27 Dose: 30 mg Aspirin (Ecotrin) 81 mg PO DAILY CAL Stop: 03/12/19 08:59 Last Admin: 01/18/19 09:26 Dose: 81 mg Atorvastatin Calcium (Lipitor) 20 mg PO HS [facility]; Protocol Stop: 03/12/19 20:59 Last Admin: 01/18/19 21:34 Dose: 20 mg Brimonidine Tartrate (Alphagan 0.1% Oph Soln) 1 drop EACH EYE TID CAL Stop: 03/12/19 08:59 Last Admin: 01/18/19 21:42 Dose: 1 drop Carvedilol (Coreg) 6.25 mg PO BID [facility] Stop: 03/12/19 08:59 Last Admin: 01/18/19 16:29 Dose: 6.25 mg Docusate Sodium (Colace) 100 mg PO BID [facility] Stop: 03/12/19 08:59 Last Admin: 01/18/19 16:30 Dose: Not Given Duloxetine HCl (Cymbalta) 60 mg PO DAILY [facility]; Protocol Stop: 03/13/19 11:59 Last Admin: 01/18/19 09:26 Dose: 60 mg Fluticasone Propionate (Flonase) 1 spr NS DAILY [facility] Stop: 03/12/19 08:59 Last Admin: 01/18/19 09:35 Dose: 1 spr Glucagon (Glucagen) 1 mg IM PRN PRN PRN Reason: BS below 70 Stop: 03/11/19 23:24 Haloperidol Decanoate (Haldol Dec) 50 mg IM QMONTH [facility]; Protocol Stop: 03/17/19 15:59 Last Admin: 01/16/19 16:34 Dose: 50 mg Haloperidol Lactate (Haldol Concentrate 10mg/5ml Susp) 5 mg PO BID [facility]; Protocol Stop: 03/18/19 08:59 Last Admin: 01/18/19 16:29 Dose: 5 mg Hydralazine HCl (Apresoline) 10 mg PO BID [facility] Stop: 03/12/19 08:59 Last Admin: 01/18/19 16:30 Dose: 10 mg Hydralazine HCl (Apresoline) 10 mg PO NOW [facility] Stop: 03/18/19 05:39 Last Admin: 01/17/19 05:41 Dose: 10 mg Ibuprofen (Motrin) 600 mg PO Q8H PRN PRN Reason: breakthrough pain Stop: 03/12/19 00:35 Last Admin: 01/18/19 04:13 Dose: 600 mg Insulin Glargine (Lantus Insulin) 26 units SUBQ HS CAL Stop: 03/12/19 20:59 Last Admin: 01/18/19 22:00 Dose: 26 units Insulin Human Lispro (Humalog Insulin Sliding Scale) 0 units SUBQ [facility]; Protocol Stop: 03/11/19 20:59 Last Admin: 01/18/19 21:43 Dose: Not Given Isosorbide Dinitrate (Isordil) 10 mg PO Q8HR CAL Stop: 03/12/19 04:59 Last Admin: 01/18/19 21:34 Dose: 10 mg Latanoprost (Xalatan 0.005% Oph Soln) 1 drop EACH EYE HS [facility] Stop: 03/12/19 20:59 Last Admin: 01/18/19 21:42 Dose: 1 drop Levothyroxine Sodium (Synthroid) 0.075 mg PO QDAC [facility] Stop: 03/12/19 07:29 Last Admin: 01/18/19 06:32 Dose: 0.075 mg Loratadine (Claritin) 10 mg PO DAILY CAL Stop: 03/12/19 08:59 Last Admin: 01/18/19 09:27 Dose: 10 mg Lorazepam (Ativan) 0.5 mg PO Q4HR PRN; Protocol PRN Reason: Anxiety/Agitation Stop: 02/09/19 19:56 Last Admin: 01/14/19 23:13 Dose: 0.5 mg Losartan Potassium (Cozaar) 50 mg PO DAILY CAL Stop: 03/12/19 08:59 Last Admin: 01/18/19 09:26 Dose: 50 mg Magnesium Hydroxide (Milk Of Magnesia) 30 ml PO HS PRN PRN Reason: Constipation Multivitamins/Vitamin C (Theragran) 1 tab PO DAILY [facility] Stop: 03/12/19 08:59 Last Admin: 01/18/19 09:27 Dose: 1 tab Nitroglycerin (Nitrostat) 0.4 mg SL Q5MIN PRN PRN Reason: CHEST PAIN Stop: 03/11/19 23:24 Last Admin: 01/18/19 12:17 Dose: 0.4 mg Oxycodone/Acetaminophen (Percocet 5/325mg Oral Tab) 1 tab PO Q8H PRN PRN Reason: severe pain (7-10) Stop: 03/12/19 00:44 Last Admin: 01/18/19 21:35 Dose: 1 tab Senna (Senna) 17.2 mg PO HS CAL Stop: 03/12/19 20:59 Last Admin: 01/18/19 21:34 Dose: 17.2 mg Sodium Phosphate (Fleet Enema) 135 ml RC DAILY PRN PRN Reason: Constipation Stop: 03/11/19 23:24 Vitamin B Complex/Vit C/Folic Acid (Vitamin B Complex W/Vitamin C) 1 tab PO DAILY CAL Stop: 03/12/19 08:59 Last Admin: 01/18/19 09:28 Dose: 1 tab Zolpidem Tartrate (Ambien) 5 mg PO HS PRN PRN Reason: Insomnia Stop: 03/11/19 19:56 Last Admin: 01/17/19 00:03 Dose: 5 mg General: alert HEENT: NC/AT, PERRLA, EOMI, anicteric sclerae, throat clear Neck: Supple, No JVD, No thyromegaly, +2 carotid pulse wo bruit, No LAD Lungs: CTAB Cardiovascular: RRR, Normal S1, Normal S2, without murmur Abdomen: soft, non-tender, non-distended Extremities: clear Neurological: no change Internal Medicine Assmt/Plan - Assessment Assessment: 1.DM. 2.HTN. 3.HYPOTHYROIDISM. 4.PSYCHOSIS - Plan Plan: CONTINUE ON CURRENT MEDICATION AND DIET Nutritional Asmnt/Malnutr-PDOC - Dietary Evaluation Malnutrition Findings (Please click <Entered> for more info): Nutritional Asmnt/Malnutrition Start: 01/11/19 12: 41 Text: Status: Complete Freq: Protocol: Document 01/11/19 12:41 AXEL (Rec: 01/11/19 12:45 AXEL [email or web address]) Nutritional Asmnt/Malnutrition Patient General Information Nutritional Screening Consult Diagnosis PSYCHOSIS Pertinent Medical Hx/Surgical Hx HTN, DM, HYPOTHYROIDISM, PSYCHOSIS, DJD Subjective Information IA CONSULT: DM PT IS A 78 YEAR OLD FEMALE [facility] ADM[facility] ON 01/10 D/T AGGRESSIVE BEHAVIOR. PT WAS HERE RECENTLY, DISCHARGED ON . PER MEAL/NUTRITION ACTIVITY RECORD, PT TYPICALLY ATE 100% MEALS. HT: 59 WT: 310 LB (141 KG) ABW: 186 LB (84.66 KG) BMI: 45.78 (OBESE III) GI: WNL, NON-TENDER, LARGE, ROUND BM: NOT NOTED I/O: 240/NOT NOTED SKIN: SKIN BREAKDOWN TO BUTTOCKS AREA LUIS: NOT NOTED DIET ORDER: CCHO 45GM, PUREED ESTIMATED ENERGY NEEDS: (OBESE III, ABW) [id number] KCALS (20-25 KCALS/ KG) 68-85 G PRO (0.8-1.0 G/KG) 3549-0572 ML (25-30 ML/KG) PT PO INTAKE: 100% SNACK PROVIDED. Current Diet Order/ Nutrition Support CCHO 45GM, PUREED Pertinent Medications MAALOX (PRN), ALBUTEROL (PRN), LIPITOR, COREG, COLACE, GLUCAGON (PRN), LANTUS, SYNTHROID, INS-SS, COZAAR, MOM (PRN), THEREGRAN, SENNA, FLEET ENEMA (PRN), VIT B COMLPEX WITH VIT C Pertinent Labs 01/10: NA 131, GLUCOSE 363 POC GLUCOSE (LAST 24 HOURS): 257, 250 Nutritional Hx/Data Height 1.75 m Height (Calculated Centimeters) 175.3 Current Weight (lbs) 140.614 kg Weight (Calculated Kilograms) 140.6 Weight (Calculated Grams) 499773.6 [place] Body Weight 145 % [place] Body Weight 214 Body Mass Index (BMI) 45.8 Weight Status Morbidly Obese GI Symptoms GI Symptoms None Last BM NOT NOTED Skin Integrity/Comment: SKIN BREAKDOWN TO BUTTOCKS AREA LUIS: NOT NOTED Current %PO Good (75-100%) Estimated Nutritional Goals BEE in Kcals: Adj wt of IBW Calories/Kcals/Kg 20-25 Kcals Calculated 0997-9486 Protein: Adj wt of IBW Protein g/k.8-1.0 Protein Calculated 68-85 Fluid: ml 8058-0678 ML (25-30 ML/KG) Nutritional Problem 1. Problem Problem ALTERED NUTRITION RELATED LABS Etiology R/T ENDOCRINE DYSFUNCTION Signs/Symptoms: AEB HX DM AND GLUCOSE 363 Malnutrition Related to Morbid Obesity Malnutrition related to morbid obesity Weight 200% of ideal wt Query Text:(Any 1 Criteria met) Malnutrition related to morbid obesity Yes Intervention/Recommendation Comments 1. CONTINUE WITH [facility] 45GM, PUREED DIET ORDERED. 2. CONTNIUE ANTIHYPERGLYCEMIC MEDICATION FOR GLUCOSE CONTROL PER MD ORDER. Expected Outcomes/Goals Expected Outcomes/Goals 1. PO INTAKE TO MEET 75% OF NUTRITIONAL NEEDS. 2. MONITOR PO INTAKE, WT, NUTRITION RELATED LABS AND SKIN INTEGRITY. 3. F/U LOW RISK IN 7 DAYS, 01/18
[2019-01-19] MEDS: INSULIN LISPRO SLIDING SCALE 100 UNITS/ML UNIT SUBQ SCH ×4 (06:33→21:11)
[2019-01-19] MEDS: Levothyroxine 0.075 Mg Tab PO SCH (06:35)
[2019-01-19] MEDS: Fluticasone Propionate Nasal 1 SPR SPR NS SCH (09:00)
[2019-01-19] MEDS: Haldol Oral Sol.(concentrate) 10 mg/5 mL Udc PO SCH ×3 (09:40→18:04)
[2019-01-19] MEDS: Vitamin B Complex w/Vitamin C Tab PO SCH ×2 (09:45→13:00)
[2019-01-19] MEDS: Multivitamin Tab PO SCH ×2 (09:45→13:00)
--- NOTE | 2019-01-19 18:00 | Internal Medicine Prog Note ---
Internal Medicine Subjective - Subjective Service Date: 01/19/19 Patient seen and examined:: with staff (SHE HAD FEW EPISODS OF CHEST PAIN ON LEFT FISDE FOR FEW SECONDS.SHE DENIES ANY SOB.) Patient is:: awake, verbal, in bed, talking Per staff patient has:: no adverse event Internal Medicine Objective - Results Result Diagrams: 01/10/19 15:10 01/10/19 15:10 Recent Labs: Laboratory Last Values WBC 8.4 Th/cmm (4.8-10.8) 01/10/19 15:10 RBC 5.16 Mil/cmm (3.80-5.20) 01/10/19 15:10 Hgb 14.9 gm/dL (12-16) 01/10/19 15:10 Hct 44.3 % (41.0-60) 01/10/19 15:10 MCV 85.8 fl (81-100) 01/10/19 15:10 MCH 28.9 pg (27.0-31.0) 01/10/19 15:10 MCHC Differential 33.7 pg (28.0-36.0) 01/10/19 15:10 RDW 12.1 % (11.5-20.0) 01/10/19 15:10 Plt Count 291 Th/cmm (150-400) 01/10/19 15:10 MPV 7.3 fl 01/10/19 15:10 Neutrophils % 59.5 % (40.0-80.0) 01/10/19 15:10 Lymphocytes % 31.2 % (20.0-50.0) 01/10/19 15:10 Monocytes % 5.0 % (2.0-10.0) 01/10/19 15:10 Eosinophils % 4.3 % (0.0-5.0) 01/10/19 15:10 Basophils % 0.0 % (0.0-2.0) 01/10/19 15:10 Sodium 131 mEq/L (136-145) L 01/10/19 15:10 Potassium 4.2 mEq/L (3.5-5.1) 01/10/19 15:10 Chloride 96 mEq/L (98-107) L 01/10/19 15:10 Carbon Dioxide 23.9 mEq/L (21.0-31.0) 01/10/19 15:10 Anion Gap 15.3 (7.0-16.0) 01/10/19 15:10 BUN 18 mg/dL (7-25) 01/10/19 15:10 Creatinine 1.0 mg/dL (0.6-1.2) 01/10/19 15:10 Est GFR ( Amer) TNP 01/10/19 15:10 Est GFR (Non-Af Amer) TNP 01/10/19 15:10 BUN/Creatinine Ratio 18.0 01/10/19 15:10 Glucose 363 mg/dL (70-105) H 01/10/19 15:10 POC Glucose 231 MG/DL (70 - 105) H 01/16/19 16:34 Calcium 9.6 mg/dL (8.6-10.3) 01/10/19 15:10 Total Bilirubin 0.5 mg/dL (0.3-1.0) 01/10/19 15:10 AST 13 U/L (13-39) 01/10/19 15:10 ALT 14 U/L (7-52) 01/10/19 15:10 Alkaline Phosphatase 66 U/L (34-104) 01/10/19 15:10 Total Protein 7.1 gm/dL (6.0-8.3) 01/10/19 15:10 Albumin 3.7 gm/dL (3.7-5.3) 01/10/19 15:10 Globulin 3.4 gm/dL 01/10/19 15:10 Albumin/Globulin Ratio 1.1 (1.0-1.8) 01/10/19 15:10 Triglycerides 417 mg/dL (<150) H 01/10/19 15:10 Cholesterol 188 mg/dL (<200) 01/10/19 15:10 LDL Cholesterol Direct 109 mg/dL (75-193) 01/10/19 15:10 HDL Cholesterol 27 mg/dL (23-92) 01/10/19 15:10 TSH 1.76 uIU/ml (0.34-5.60) 01/10/19 15:10 Urine Source CLEAN C 01/14/19 17:00 Urine Color YELLOW 01/14/19 17:00 Urine Clarity CLOUDY (CLEAR) H 01/14/19 17:00 Urine pH 6.5 (4.6 - 8.0) 01/14/19 17:00 Ur Specific [place] <= 1.005 (1.005-1.030) 01/14/19 17:00 Urine Protein NEGATIVE mg/dL (NEGATIVE) 01/14/19 17:00 Urine Glucose (UA) 100 mg/dL (NEGATIVE) H 01/14/19 17:00 Urine Ketones NEGATIVE mg/dL (NEGATIVE) 01/14/19 17:00 Urine Blood SMALL (NEGATIVE) H 01/14/19 17:00 Urine Nitrate NEGATIVE (NEGATIVE) 01/14/19 17:00 Urine Bilirubin NEGATIVE (NEGATIVE) 01/14/19 17:00 Urine Urobilinogen 0.2 E.U./dL (0.2 - 1.0) 01/14/19 17:00 Ur Leukocyte Esterase MODERATE (NEGATIVE) H 01/14/19 17:00 Urine RBC 2-5 /hpf (0-5) 01/14/19 17:00 Urine WBC 6-10 /hpf (0-5) H 01/14/19 17:00 Ur Epithelial Cells FEW /lpf (FEW) 01/14/19 17:00 Urine Bacteria MANY /hpf (NONE SEEN) H 01/14/19 17:00 RPR NONREACTIVE (NONREACTIVE) 01/10/19 15:10 - Physical Exam Vitals and I&O: Vital Signs Temp 98.8 F 01/19/19 14:00 Pulse 85 01/19/19 16:46 Resp 20 01/19/19 14:00 BP 163/97 01/19/19 16:46 Pulse Ox 98 01/19/19 14:00 Intake & Output 01/18/19 01/19/19 01/19/19 18:59 06:59 18:59 Intake Total 1200 720 Balance 1200 720 Intake: Oral 1200 720 Other: # Voids 5 3 # Bowel Movements 0 0 Stool Characteristics Soft Soft Soft Active Medications: Current Medications Acetaminophen (Tylenol Extra Strength) 500 mg PO Q4H PRN PRN Reason: Pain or Fever >101 Stop: 03/12/19 00:41 Last Admin: 01/16/19 17:34 Dose: 500 mg Al Hydrox/Mg Hydrox/Simethicone (Maalox) 30 ml PO Q4HR PRN PRN Reason: GI DISTRESS Stop: 03/11/19 19:56 Albuterol/Ipratropium (Duoneb Neb) 3 ml HHN Q4H PRN PRN Reason: Wheezing Stop: 03/12/19 00:48 Last Admin: 01/15/19 02:47 Dose: 3 ml Aripiprazole (Abilify) 30 mg PO DAILY [facility]; Protocol Stop: 03/17/19 08:59 Last Admin: 01/19/19 13:00 Dose: 30 mg Aspirin (Ecotrin) 81 mg PO DAILY [facility] Stop: 03/12/19 08:59 Last Admin: 01/19/19 13:00 Dose: 81 mg Atorvastatin Calcium (Lipitor) 20 mg PO HS [facility]; Protocol Stop: 03/12/19 20:59 Last Admin: 01/18/19 21:34 Dose: 20 mg Brimonidine Tartrate (Alphagan 0.1% Oph Soln) 1 drop EACH EYE TID [facility] Stop: 03/12/19 08:59 Last Admin: 01/19/19 14:43 Dose: 1 drop Carvedilol (Coreg) 12.5 mg PO BID [facility] Stop: 03/21/19 08:59 Docusate Sodium (Colace) 100 mg PO BID [facility] Stop: 03/12/19 08:59 Last Admin: 01/19/19 09:40 Dose: Not Given Duloxetine HCl (Cymbalta) 60 mg PO DAILY [facility]; Protocol Stop: 03/13/19 11:59 Last Admin: 01/19/19 13:00 Dose: 60 mg Fluticasone Propionate (Flonase) 1 spr NS DAILY [facility] Stop: 03/12/19 08:59 Last Admin: 01/19/19 09:00 Dose: Not Given Glucagon (Glucagen) 1 mg IM PRN PRN PRN Reason: BS below 70 Stop: 03/11/19 23:24 Haloperidol Decanoate (Haldol Dec) 50 mg IM QMONTH [facility]; Protocol Stop: 03/17/19 15:59 Last Admin: 01/16/19 16:34 Dose: 50 mg Haloperidol Lactate (Haldol Concentrate 10mg/5ml Susp) 5 mg PO BID [facility]; Protocol Stop: 03/18/19 08:59 Last Admin: 01/19/19 13:00 Dose: 5 mg Hydralazine HCl (Apresoline) 10 mg PO BID [facility] Stop: 03/12/19 08:59 Last Admin: 01/19/19 13:41 Dose: 10 mg Ibuprofen (Motrin) 600 mg PO Q8H PRN PRN Reason: breakthrough pain Stop: 03/12/19 00:35 Last Admin: 01/18/19 04:13 Dose: 600 mg Insulin Glargine (Lantus Insulin) 26 units SUBQ HS CAL Stop: 03/12/19 20:59 Last Admin: 01/18/19 22:00 Dose: 26 units Insulin Human Lispro (Humalog Insulin Sliding Scale) 0 units SUBQ [facility]; Protocol Stop: 03/11/19 20:59 Last Admin: 01/19/19 17:23 Dose: 2 units Isosorbide Dinitrate (Isordil) 10 mg PO Q8HR [facility] Stop: 03/12/19 04:59 Last Admin: 01/19/19 12:45 Dose: 10 mg Latanoprost (Xalatan 0.005% Ophth Soln) 1 drop EACH EYE HS [facility] Stop: 03/12/19 20:59 Last Admin: 01/18/19 21:42 Dose: 1 drop Levothyroxine Sodium (Synthroid) 0.075 mg PO QDAC CAL Stop: 03/12/19 07:29 Last Admin: 01/19/19 06:35 Dose: 0.075 mg Loratadine (Claritin) 10 mg PO DAILY [facility] Stop: 03/12/19 08:59 Last Admin: 01/19/19 09:45 Dose: Not Given Lorazepam (Ativan) 0.5 mg PO Q4HR PRN; Protocol PRN Reason: Anxiety/Agitation Stop: 02/09/19 19:56 Last Admin: 01/14/19 23:13 Dose: 0.5 mg Losartan Potassium (Cozaar) 50 mg PO DAILY [facility] Stop: 03/12/19 08:59 Last Admin: 01/19/19 13:00 Dose: 50 mg Magnesium Hydroxide (Milk Of Magnesia) 30 ml PO HS PRN PRN Reason: Constipation Multivitamins/Vitamin C (Theragran) 1 tab PO DAILY [facility] Stop: 03/12/19 08:59 Last Admin: 01/19/19 13:00 Dose: 1 tab Nitroglycerin (Nitrostat) 0.4 mg SL Q5MIN PRN PRN Reason: CHEST PAIN Stop: 03/11/19 23:24 Last Admin: 01/19/19 16:46 Dose: 0.4 mg Oxycodone/Acetaminophen (Percocet 5/325mg Oral Tab) 1 tab PO Q8H PRN PRN Reason: severe pain (7-10) Stop: 03/12/19 00:44 Last Admin: 01/18/19 21:35 Dose: 1 tab Senna (Senna) 17.2 mg PO HS CAL Stop: 03/12/19 20:59 Last Admin: 01/18/19 21:34 Dose: 17.2 mg Sodium Phosphate (Fleet Enema) 135 ml RC DAILY PRN PRN Reason: Constipation Stop: 03/11/19 23:24 Vitamin B Complex/Vit C/Folic Acid (Vitamin B Complex W/Vitamin C) 1 tab PO DAILY CAL Stop: 03/12/19 08:59 Last Admin: 01/19/19 13:00 Dose: 1 tab Zolpidem Tartrate (Ambien) 5 mg PO HS PRN PRN Reason: Insomnia Stop: 03/11/19 19:56 Last Admin: 01/17/19 00:03 Dose: 5 mg General: alert HEENT: NC/AT, PERRLA, EOMI, anicteric sclerae, throat clear Neck: Supple, No JVD, No thyromegaly, +2 carotid pulse wo bruit, No LAD Lungs: CTAB Cardiovascular: RRR, Normal S1, Normal S2, without murmur Abdomen: soft, non-tender, non-distended Extremities: clear Neurological: no change Internal Medicine Assmt/Plan - Assessment Assessment: 1.DM. 2.HTN. 3.HYPOTHYROIDISM. 4.CHEST WALL PAIN 5.PSYCHOSIS - Plan Plan: CONTINUE ON CURRENT MEDICATION AND DIETNAPROXYN 500 MG PO BID.CHANGE COREG TO 12.5 MG PO BID Nutritional Asmnt/Malnutr-PDOC - Dietary Evaluation Malnutrition Findings (Please click <Entered> for more info): Nutritional Asmnt/Malnutrition Start: 01/11/19 12: 41 Text: Status: Complete Freq: Protocol: Document 01/11/19 12:41 AXEL (Rec: 01/11/19 12:45 AXEL [email or web address]) Nutritional Asmnt/Malnutrition Patient General Information Nutritional Screening Consult Diagnosis PSYCHOSIS Pertinent Medical Hx/Surgical Hx HTN, DM, HYPOTHYROIDISM, PSYCHOSIS, DJD Subjective Information IA CONSULT: DM PT IS A 78 YEAR OLD FEMALE FROM [facility] ADMITTED ON 01/10 D/T AGGRESSIVE BEHAVIOR. PT WAS HERE RECENTLY, DISCHARGED ON . PER MEAL/NUTRITION ACTIVITY RECORD, PT TYPICALLY ATE 100% MEALS. HT: 59 WT: 310 LB (141 KG) ABW: 186 LB (84.66 KG) BMI: 45.78 (OBESE III) GI: WNL, NON-TENDER, LARGE, ROUND BM: NOT NOTED I/O: 240/NOT NOTED SKIN: SKIN BREAKDOWN TO BUTTOCKS AREA LUIS: NOT NOTED DIET ORDER: CCHO 45GM, PUREED ESTIMATED ENERGY NEEDS: (OBESE III, ABW) [id number] KCALS (20-25 KCALS/ KG) 68-85 G PRO (0.8-1.0 G/KG) 1821-9064 ML (25-30 ML/KG) PT PO INTAKE: 100% SNACK PROVIDED. Current Diet Order/ Nutrition Support CCHO 45GM, PUREED Pertinent Medications MAALOX (PRN), ALBUTEROL (PRN), LIPITOR, COREG, COLACE, GLUCAGON (PRN), LANTUS, SYNTHROID, INS-SS, COZAAR, MOM (PRN), THEREGRAN, SENNA, FLEET ENEMA (PRN), VIT B COMLPEX WITH VIT C Pertinent Labs 01/10: NA 131, GLUCOSE 363 POC GLUCOSE (LAST 24 HOURS): 257, 250 Nutritional Hx/Data Height 1.75 m Height (Calculated Centimeters) 175.3 Current Weight (lbs) 140.614 kg Weight (Calculated Kilograms) 140.6 Weight (Calculated Grams) 756293.6 [place] Body Weight 145 % [place] Body Weight 214 Body Mass Index (BMI) 45.8 Weight Status Morbidly Obese GI Symptoms GI Symptoms None Last BM NOT NOTED Skin Integrity/Comment: SKIN BREAKDOWN TO BUTTOCKS AREA LUIS: NOT NOTED Current %PO Good (75-100%) Estimated Nutritional Goals BEE in Kcals: Adj wt of IBW Calories/Kcals/Kg 20-25 Kcals Calculated 0247-4202 Protein: Adj wt of IBW Protein g/k.8-1.0 Protein Calculated 68-85 Fluid: ml 7748-4819 ML (25-30 ML/KG) Nutritional Problem 1. Problem Problem ALTERED NUTRITION RELATED LABS Etiology R/T ENDOCRINE DYSFUNCTION Signs/Symptoms: AEB HX DM AND GLUCOSE 363 Malnutrition Related to Morbid Obesity Malnutrition related to morbid obesity Weight 200% of ideal wt Query Text:(Any 1 Criteria met) Malnutrition related to morbid obesity Yes Intervention/Recommendation Comments 1. [facility], PUREED DIET ORDERED. 2. CONTNIUE ANTIHYPERGLYCEMIC MEDICATION FOR GLUCOSE CONTROL PER MD ORDER. Expected Outcomes/Goals Expected Outcomes/Goals 1. PO INTAKE TO MEET 75% OF NUTRITIONAL NEEDS. 2. MONITOR PO INTAKE, WT, NUTRITION RELATED LABS AND SKIN INTEGRITY. 3. F/U LOW RISK IN 7 DAYS, 01/18
[2019-01-19] MEDS: Atorvastatin Calcium 10 MG TAB PO SCH (20:37)
[2019-01-19] MEDS: APAP/Oxycodone 5/325mg Tab PO PRN (20:38)
[2019-01-19] MEDS: Insulin Glargine 100 units/ml 10ml Vial SUBQ SCH (21:12)
--- NOTE | 2019-01-20 01:16 | Progress Notes ---
DATE: 01/19/2019 Case was discussed with staff of the patient, reviewed records. Covering for Dr. Velazquez. This is a well-known case to me who was readmitted again because of her agitated, irritable mood, angry mood. She is abusive to the staff, continues to need redirection. She tried to manage her issues and problems, resisting care , throwing objects towards other people and staff, yet denying it, continues to have poor insight. She has been on Haldol Decanoate. She has poor impulse control. No side effects with the medication, no sedation, no nausea, no extrapyramidal symptoms, and she is also on Abilify 30 mg daily and duloxetine 60 mg daily and Haldol 5 mg twice a day with no side effects, no sedation, no nausea, no extrapyramidal symptoms. We will continue to work with the patient in group therapy, milieu therapy and adjust the medications as needed. JOB# [id number] MOE
[2019-01-20] MEDS: INSULIN LISPRO SLIDING SCALE 100 UNITS/ML UNIT SUBQ SCH ×4 (06:39→21:09)
[2019-01-20] MEDS: Levothyroxine 0.075 Mg Tab PO SCH (06:40)
[2019-01-20] MEDS: NYSTATIN 100000 UNITS/GM POWD TP SCH (08:40)
[2019-01-20] MEDS: Vitamin B Complex w/Vitamin C Tab PO SCH (08:50)
[2019-01-20] MEDS: Haldol Oral Sol.(concentrate) 10 mg/5 mL Udc PO SCH ×2 (08:50→16:43)
[2019-01-20] MEDS: Fluticasone Propionate Nasal 1 SPR SPR NS SCH (08:50)
[2019-01-20] MEDS: Multivitamin Tab PO SCH (08:50)
[2019-01-20] MEDS: APAP/Oxycodone 5/325mg Tab PO PRN ×2 (09:44→16:45)
--- NOTE | 2019-01-20 14:08 | Progress Notes ---
DATE: 01/20/2019 SUBJECTIVE: Case was discussed with staff of the patient, reviewed records. The patient continues to isolate herself. Continues to be unpredictable, impulsive, throwing objects the patient staff, very poor insight. Continues to be unpredictable, impulsive, needing redirection. No side effects with the medication, no sedation, no nausea, no extrapyramidal symptoms. We will continue outpatient group therapy, milieu therapy, and adjust her medication as needed. [facility]# [id number] MTDD
--- NOTE | 2019-01-20 19:43 | Progress Notes ---
DATE: 01/18/2019 PSYCHIATRIC PROGRESS NOTE SUBJECTIVE: reviewed and the patient interviewed. I also discussed the patient's condition with the staff and reviewed records and labs. The patient is still anxious and she is still in a depressed mood. The patient also is still demanding and irritable and easily agitated with severe mood swings. Otherwise, the patient is starting to be more compliant with taking her medications with no side effects of medications. ASSESSMENT: The patient still has mood swings and is still agitated, but she started to be more compliant with taking her medications. TREATMENT PLAN: Continue to monitor behavior and condition closely. Also, continue adjusting psychotropic medications and working on her compliance with taking medications. JOB# [id number]
[2019-01-20] MEDS: Atorvastatin Calcium 10 MG TAB PO SCH (21:07)
[2019-01-20] MEDS: Acetaminophen 500 MG TAB PO PRN (21:07)
[2019-01-20] MEDS: Insulin Glargine 100 units/ml 10ml Vial SUBQ SCH (21:08)
--- NOTE | 2019-01-20 22:25 | Internal Medicine Prog Note ---
Internal Medicine Subjective - Subjective Service Date: 01/20/19 Patient seen and examined:: without staff (SHE IS DOING BETTER,NO CHEST PAIN.) Patient is:: awake, verbal, in bed, talking Per staff patient has:: no adverse event Internal Medicine Objective - Results Result Diagrams: 01/10/19 15:10 01/10/19 15:10 Recent Labs: Laboratory Last Values WBC 8.4 Th/cmm (4.8-10.8) 01/10/19 15:10 RBC 5.16 Mil/cmm (3.80-5.20) 01/10/19 15:10 Hgb 14.9 gm/dL (12-16) 01/10/19 15:10 Hct 44.3 % (41.0-60) 01/10/19 15:10 MCV 85.8 fl (81-100) 01/10/19 15:10 MCH 28.9 pg (27.0-31.0) 01/10/19 15:10 MCHC Differential 33.7 pg (28.0-36.0) 01/10/19 15:10 RDW 12.1 % (11.5-20.0) 01/10/19 15:10 Plt Count 291 Th/cmm (150-400) 01/10/19 15:10 MPV 7.3 fl 01/10/19 15:10 Neutrophils % 59.5 % (40.0-80.0) 01/10/19 15:10 Lymphocytes % 31.2 % (20.0-50.0) 01/10/19 15:10 Monocytes % 5.0 % (2.0-10.0) 01/10/19 15:10 Eosinophils % 4.3 % (0.0-5.0) 01/10/19 15:10 Basophils % 0.0 % (0.0-2.0) 01/10/19 15:10 Sodium 131 mEq/L (136-145) L 01/10/19 15:10 Potassium 4.2 mEq/L (3.5-5.1) 01/10/19 15:10 Chloride 96 mEq/L (98-107) L 01/10/19 15:10 Carbon Dioxide 23.9 mEq/L (21.0-31.0) 01/10/19 15:10 Anion Gap 15.3 (7.0-16.0) 01/10/19 15:10 BUN 18 mg/dL (7-25) 01/10/19 15:10 Creatinine 1.0 mg/dL (0.6-1.2) 01/10/19 15:10 Est GFR ( Amer) TNP 01/10/19 15:10 Est GFR (Non-Af Amer) TNP 01/10/19 15:10 BUN/Creatinine Ratio 18.0 01/10/19 15:10 Glucose 363 mg/dL (70-105) H 01/10/19 15:10 POC Glucose 231 MG/DL (70 - 105) H 01/16/19 16:34 Calcium 9.6 mg/dL (8.6-10.3) 01/10/19 15:10 Total Bilirubin 0.5 mg/dL (0.3-1.0) 01/10/19 15:10 AST 13 U/L (13-39) 01/10/19 15:10 ALT 14 U/L (7-52) 01/10/19 15:10 Alkaline Phosphatase 66 U/L (34-104) 01/10/19 15:10 Troponin I 0.04 ng/mL (0.01-0.05) 01/19/19 22:30 Total Protein 7.1 gm/dL (6.0-8.3) 01/10/19 15:10 Albumin 3.7 gm/dL (3.7-5.3) 01/10/19 15:10 Globulin 3.4 gm/dL 01/10/19 15:10 Albumin/Globulin Ratio 1.1 (1.0-1.8) 01/10/19 15:10 Triglycerides 417 mg/dL (<150) H 01/10/19 15:10 Cholesterol 188 mg/dL (<200) 01/10/19 15:10 LDL Cholesterol Direct 109 mg/dL (75-193) 01/10/19 15:10 HDL Cholesterol 27 mg/dL (23-92) 01/10/19 15:10 TSH 1.76 uIU/ml (0.34-5.60) 01/10/19 15:10 Urine Source CLEAN C 01/14/19 17:00 Urine Color YELLOW 01/14/19 17:00 Urine Clarity CLOUDY (CLEAR) H 01/14/19 17:00 Urine pH 6.5 (4.6 - 8.0) 01/14/19 17:00 Ur Specific [place] <= 1.005 (1.005-1.030) 01/14/19 17:00 Urine Protein NEGATIVE mg/dL (NEGATIVE) 01/14/19 17:00 Urine Glucose (UA) 100 mg/dL (NEGATIVE) H 01/14/19 17:00 Urine Ketones NEGATIVE mg/dL (NEGATIVE) 01/14/19 17:00 Urine Blood SMALL (NEGATIVE) H 01/14/19 17:00 Urine Nitrate NEGATIVE (NEGATIVE) 01/14/19 17:00 Urine Bilirubin NEGATIVE (NEGATIVE) 01/14/19 17:00 Urine Urobilinogen 0.2 E.U./dL (0.2 - 1.0) 01/14/19 17:00 Ur Leukocyte Esterase MODERATE (NEGATIVE) H 01/14/19 17:00 Urine RBC 2-5 /hpf (0-5) 01/14/19 17:00 Urine WBC 6-10 /hpf (0-5) H 01/14/19 17:00 Ur Epithelial Cells FEW /lpf (FEW) 01/14/19 17:00 Urine Bacteria MANY /hpf (NONE SEEN) H 01/14/19 17:00 RPR NONREACTIVE (NONREACTIVE) 01/10/19 15:10 - Physical Exam Vitals and I&O: Vital Signs Temp 98.6 F 01/20/19 20:03 Pulse 75 01/20/19 21:07 Resp 18 01/20/19 20:03 BP 158/79 01/20/19 21:07 Pulse Ox 93 01/20/19 20:03 Intake & Output 01/20/19 01/20/19 01/21/19 06:59 18:59 06:59 Intake Total 240 Balance 240 Intake: Oral 240 Other: # Voids 2 Stool Characteristics Soft Soft Soft Active Medications: Current Medications Acetaminophen (Tylenol Extra Strength) 500 mg PO Q4H PRN PRN Reason: Pain or Fever >101 Stop: 03/12/19 00:41 Last Admin: 01/20/19 21:07 Dose: 500 mg Al Hydrox/Mg Hydrox/Simethicone (Maalox) 30 ml PO Q4HR PRN PRN Reason: GI DISTRESS Stop: 03/11/19 19:56 Albuterol/Ipratropium (Duoneb Neb) 3 ml HHN Q4H PRN PRN Reason: Wheezing Stop: 03/12/19 00:48 Last Admin: 01/15/19 02:47 Dose: 3 ml Aripiprazole (Abilify) 30 mg PO DAILY [facility]; Protocol Stop: 03/17/19 08:59 Last Admin: 01/20/19 08:50 Dose: 30 mg Aspirin (Ecotrin) 81 mg PO DAILY [facility] Stop: 03/12/19 08:59 Last Admin: 01/20/19 08:50 Dose: 81 mg Atorvastatin Calcium (Lipitor) 20 mg PO HS [facility]; Protocol Stop: 03/12/19 20:59 Last Admin: 01/20/19 21:07 Dose: 20 mg Brimonidine Tartrate (Alphagan 0.1% Ophth Soln) 1 drop EACH EYE TID CAL Stop: 03/12/19 08:59 Last Admin: 01/20/19 21:06 Dose: 1 drop Carvedilol (Coreg) 12.5 mg PO BID [facility] Stop: 03/21/19 08:59 Last Admin: 01/20/19 08:50 Dose: 12.5 mg Docusate Sodium (Colace) 100 mg PO BID [facility] Stop: 03/12/19 08:59 Last Admin: 01/20/19 17:26 Dose: Not Given Duloxetine HCl (Cymbalta) 60 mg PO DAILY [facility]; Protocol Stop: 03/13/19 11:59 Last Admin: 01/20/19 08:50 Dose: 60 mg Fluticasone Propionate (Flonase) 1 spr NS DAILY [facility] Stop: 03/12/19 08:59 Last Admin: 01/20/19 08:50 Dose: 1 spr Glucagon (Glucagen) 1 mg IM PRN PRN PRN Reason: BS below 70 Stop: 03/11/19 23:24 Haloperidol Decanoate (Haldol Dec) 50 mg IM QMONTH [facility]; Protocol Stop: 03/17/19 15:59 Last Admin: 01/16/19 16:34 Dose: 50 mg Haloperidol Lactate (Haldol Concentrate 10mg/5ml Susp) 5 mg PO BID [facility]; Protocol Stop: 03/18/19 08:59 Last Admin: 01/20/19 16:43 Dose: 5 mg Hydralazine HCl (Apresoline) 10 mg PO BID [facility] Stop: 03/12/19 08:59 Last Admin: 01/20/19 16:43 Dose: 10 mg Ibuprofen (Motrin) 600 mg PO Q8H PRN PRN Reason: breakthrough pain Stop: 03/12/19 00:35 Last Admin: 01/18/19 04:13 Dose: 600 mg Insulin Glargine (Lantus Insulin) 26 units SUBQ HS [facility] Stop: 03/12/19 20:59 Last Admin: 01/20/19 21:08 Dose: 26 units Insulin Human Lispro (Humalog Insulin Sliding Scale) 0 units SUBQ ACHS [facility]; Protocol Stop: 03/11/19 20:59 Last Admin: 01/20/19 21:09 Dose: 2 units Isosorbide Dinitrate (Isordil) 10 mg PO Q8HR [facility] Stop: 03/12/19 04:59 Last Admin: 01/20/19 21:07 Dose: 10 mg Latanoprost (Xalatan 0.005% Oph Soln) 1 drop EACH EYE HS [facility] Stop: 03/12/19 20:59 Last Admin: 01/20/19 21:06 Dose: 1 drop Levothyroxine Sodium (Synthroid) 0.075 mg PO QDAC [facility] Stop: 03/12/19 07:29 Last Admin: 01/20/19 06:40 Dose: 0.075 mg Loratadine (Claritin) 10 mg PO DAILY [facility] Stop: 03/12/19 08:59 Last Admin: 01/20/19 08:50 Dose: 10 mg Lorazepam (Ativan) 0.5 mg PO Q4HR PRN; Protocol PRN Reason: Anxiety/Agitation Stop: 02/09/19 19:56 Last Admin: 01/14/19 23:13 Dose: 0.5 mg Losartan Potassium (Cozaar) 50 mg PO DAILY [facility] Stop: 03/12/19 08:59 Last Admin: 01/20/19 08:50 Dose: 50 mg Magnesium Hydroxide (Milk Of Magnesia) 30 ml PO HS PRN PRN Reason: Constipation Multivitamins/Vitamin C (Theragran) 1 tab PO DAILY [facility] Stop: 03/12/19 08:59 Last Admin: 01/20/19 08:50 Dose: 1 tab Naproxen (Naprosyn) 500 mg PO BIDWM [facility] Stop: 03/20/19 17:59 Last Admin: 01/20/19 17:22 Dose: 500 mg Nitroglycerin (Nitrostat) 0.4 mg SL Q5MIN PRN PRN Reason: CHEST PAIN Stop: 03/11/19 23:24 Last Admin: 01/19/19 16:46 Dose: 0.4 mg Nystatin (Nystop) 100 units TP DAILY [facility] Stop: 03/21/19 08:59 Last Admin: 01/20/19 08:40 Dose: 100 units Oxycodone/Acetaminophen (Percocet 5/325mg Oral Tab) 1 tab PO Q8H PRN PRN Reason: severe pain (7-10) Stop: 03/12/19 00:44 Last Admin: 01/20/19 16:45 Dose: 1 tab Senna (Senna) 17.2 mg PO HS [facility] Stop: 03/12/19 20:59 Last Admin: 01/20/19 21:06 Dose: 17.2 mg Sodium Phosphate (Fleet Enema) 135 ml RC DAILY PRN PRN Reason: Constipation Stop: 03/11/19 23:24 Vitamin B Complex/Vit C/Folic Acid (Vitamin B Complex W/Vitamin C) 1 tab PO DAILY [facility] Stop: 03/12/19 08:59 Last Admin: 01/20/19 08:50 Dose: 1 tab Zolpidem Tartrate (Ambien) 5 mg PO HS PRN PRN Reason: Insomnia Stop: 03/11/19 19:56 Last Admin: 01/17/19 00:03 Dose: 5 mg General: alert HEENT: NC/AT, PERRLA, EOMI, anicteric sclerae, throat clear Neck: Supple, No JVD, No thyromegaly, +2 carotid pulse wo bruit, No LAD Lungs: CTAB Cardiovascular: RRR, Normal S1, Normal S2, without murmur Abdomen: soft, non-tender, non-distended Extremities: clear Neurological: no change Internal Medicine Assmt/Plan - Assessment Assessment: 1.DM. 2.HTN. 3.HYPOTHYROIDISM. 4.CHEST WALL PAIN 5.PSYCHOSIS - Plan Plan: CONTINUE ON CURRENT MEDICATION AND DIET. Nutritional Asmnt/Malnutr-PDOC - Dietary Evaluation Malnutrition Findings (Please click <Entered> for more info): Nutritional Asmnt/Malnutrition Start: 01/11/19 12: 41 Text: Status: Complete Freq: Protocol: Document 01/11/19 12:41 AXEL (Rec: 01/11/19 12:45 [email or web address] [email or web address]) Nutritional Asmnt/Malnutrition Patient General Information Nutritional Screening Consult Diagnosis PSYCHOSIS Pertinent Medical Hx/Surgical Hx HTN, DM, HYPOTHYROIDISM, PSYCHOSIS, DJD Subjective Information IA CONSULT: DM PT IS A 78 YEAR OLD FEMALE [facility] D/T AGGRESSIVE BEHAVIOR. PT WAS HERE RECENTLY, DISCHARGED ON . PER MEAL/NUTRITION ACTIVITY RECORD, PT TYPICALLY ATE 100% MEALS. HT: 59 WT: 310 LB (141 KG) ABW: 186 LB (84.66 KG) BMI: 45.78 (OBESE III) GI: WNL, NON-TENDER, LARGE, ROUND BM: NOT NOTED I/O: 240/NOT NOTED SKIN: SKIN BREAKDOWN TO BUTTOCKS AREA LUIS: NOT NOTED DIET ORDER: CCHO 45GM, PUREED ESTIMATED ENERGY NEEDS: (OBESE III, ABW) 0619-2069 KCALS (20-25 KCALS/ KG) 68-85 G PRO (0.8-1.0 G/KG) 6340-9244 ML (25-30 ML/KG) PT PO INTAKE: 100% SNACK PROVIDED. Current Diet Order/ Nutrition Support CCHO 45GM, PUREED Pertinent Medications MAALOX (PRN), ALBUTEROL (PRN), LIPITOR, COREG, COLACE, GLUCAGON (PRN), LANTUS, SYNTHROID, INS-SS, COZAAR, MOM (PRN), THEREGRAN, SENNA, FLEET ENEMA (PRN), VIT B COMLPEX WITH VIT C Pertinent Labs 01/10: NA 131, GLUCOSE 363 POC GLUCOSE (LAST 24 HOURS): 257, 250 Nutritional Hx/Data Height 1.75 m Height (Calculated Centimeters) 175.3 Current Weight (lbs) 140.614 kg Weight (Calculated Kilograms) 140.6 Weight (Calculated Grams) 478119.6 [place] Body Weight 145 % [place] Body Weight 214 Body Mass Index (BMI) 45.8 Weight Status Morbidly Obese GI Symptoms GI Symptoms None Last BM NOT NOTED Skin Integrity/Comment: SKIN BREAKDOWN TO BUTTOCKS AREA LUIS: NOT NOTED Current %PO Good (75-100%) Estimated Nutritional Goals BEE in Kcals: Adj wt of IBW Calories/Kcals/Kg 20-25 Kcals Calculated 5821-6490 Protein: Adj wt of IBW Protein g/k.8-1.0 Protein Calculated 68-85 Fluid: ml 5060-5008 ML (25-30 ML/KG) Nutritional Problem 1. Problem Problem ALTERED NUTRITION RELATED LABS Etiology R/T ENDOCRINE DYSFUNCTION Signs/Symptoms: AEB HX DM AND GLUCOSE 363 Malnutrition Related to Morbid Obesity Malnutrition related to morbid obesity Weight 200% of ideal wt Query Text:(Any 1 Criteria met) Malnutrition related to morbid obesity Yes Intervention/Recommendation Comments 1. CONTINUE WITH [facility] 45GM, PUREED DIET ORDERED. 2. CONTNIUE ANTIHYPERGLYCEMIC MEDICATION FOR GLUCOSE CONTROL PER MD ORDER. Expected Outcomes/Goals Expected Outcomes/Goals 1. PO INTAKE TO MEET 75% OF NUTRITIONAL NEEDS. 2. MONITOR PO INTAKE, WT, NUTRITION RELATED LABS AND SKIN INTEGRITY. 3. F/U LOW RISK IN 7 DAYS, 01/18
[2019-01-21] MEDS: APAP/Oxycodone 5/325mg Tab PO PRN (04:36)
[2019-01-21] MEDS: Levothyroxine 0.075 Mg Tab PO SCH (06:43)
[2019-01-21] MEDS: INSULIN LISPRO SLIDING SCALE 100 UNITS/ML UNIT SUBQ SCH ×4 (06:43→21:45)
[2019-01-21] MEDS: Multivitamin Tab PO SCH (08:37)
[2019-01-21] MEDS: Haldol Oral Sol.(concentrate) 10 mg/5 mL Udc PO SCH ×2 (08:38→16:42)
[2019-01-21] MEDS: Vitamin B Complex w/Vitamin C Tab PO SCH (08:39)
[2019-01-21] MEDS: Fluticasone Propionate Nasal 1 SPR SPR NS SCH (08:41)
[2019-01-21] MEDS: NYSTATIN 100000 UNITS/GM POWD TP SCH (09:00)
--- NOTE | 2019-01-21 21:02 | Internal Medicine Prog Note ---
Internal Medicine Subjective - Subjective Service Date: 01/21/19 Patient seen and examined:: with staff (SHE FEELS WELL) Patient is:: awake, verbal, in bed, talking Per staff patient has:: no adverse event Internal Medicine Objective - Results Result Diagrams: 01/10/19 15:10 01/10/19 15:10 Recent Labs: Laboratory Last Values WBC 8.4 Th/cmm (4.8-10.8) 01/10/19 15:10 RBC 5.16 Mil/cmm (3.80-5.20) 01/10/19 15:10 Hgb 14.9 gm/dL (12-16) 01/10/19 15:10 Hct 44.3 % (41.0-60) 01/10/19 15:10 MCV 85.8 fl (81-100) 01/10/19 15:10 MCH 28.9 pg (27.0-31.0) 01/10/19 15:10 MCHC Differential 33.7 pg (28.0-36.0) 01/10/19 15:10 RDW 12.1 % (11.5-20.0) 01/10/19 15:10 Plt Count 291 Th/cmm (150-400) 01/10/19 15:10 MPV 7.3 fl 01/10/19 15:10 Neutrophils % 59.5 % (40.0-80.0) 01/10/19 15:10 Lymphocytes % 31.2 % (20.0-50.0) 01/10/19 15:10 Monocytes % 5.0 % (2.0-10.0) 01/10/19 15:10 Eosinophils % 4.3 % (0.0-5.0) 01/10/19 15:10 Basophils % 0.0 % (0.0-2.0) 01/10/19 15:10 Sodium 131 mEq/L (136-145) L 01/10/19 15:10 Potassium 4.2 mEq/L (3.5-5.1) 01/10/19 15:10 Chloride 96 mEq/L (98-107) L 01/10/19 15:10 Carbon Dioxide 23.9 mEq/L (21.0-31.0) 01/10/19 15:10 Anion Gap 15.3 (7.0-16.0) 01/10/19 15:10 BUN 18 mg/dL (7-25) 01/10/19 15:10 Creatinine 1.0 mg/dL (0.6-1.2) 01/10/19 15:10 Est GFR ( Amer) TNP 01/10/19 15:10 Est GFR (Non-Af Amer) TNP 01/10/19 15:10 BUN/Creatinine Ratio 18.0 01/10/19 15:10 Glucose 363 mg/dL (70-105) H 01/10/19 15:10 POC Glucose 231 MG/DL (70 - 105) H 01/16/19 16:34 Calcium 9.6 mg/dL (8.6-10.3) 01/10/19 15:10 Total Bilirubin 0.5 mg/dL (0.3-1.0) 01/10/19 15:10 AST 13 U/L (13-39) 01/10/19 15:10 ALT 14 U/L (7-52) 01/10/19 15:10 Alkaline Phosphatase 66 U/L (34-104) 01/10/19 15:10 Troponin I 0.04 ng/mL (0.01-0.05) 01/19/19 22:30 Total Protein 7.1 gm/dL (6.0-8.3) 01/10/19 15:10 Albumin 3.7 gm/dL (3.7-5.3) 01/10/19 15:10 Globulin 3.4 gm/dL 01/10/19 15:10 Albumin/Globulin Ratio 1.1 (1.0-1.8) 01/10/19 15:10 Triglycerides 417 mg/dL (<150) H 01/10/19 15:10 Cholesterol 188 mg/dL (<200) 01/10/19 15:10 LDL Cholesterol Direct 109 mg/dL (75-193) 01/10/19 15:10 HDL Cholesterol 27 mg/dL (23-92) 01/10/19 15:10 TSH 1.76 uIU/ml (0.34-5.60) 01/10/19 15:10 Urine Source CLEAN C 01/14/19 17:00 Urine Color YELLOW 01/14/19 17:00 Urine Clarity CLOUDY (CLEAR) H 01/14/19 17:00 Urine pH 6.5 (4.6 - 8.0) 01/14/19 17:00 Ur Specific [place] <= 1.005 (1.005-1.030) 01/14/19 17:00 Urine Protein NEGATIVE mg/dL (NEGATIVE) 01/14/19 17:00 Urine Glucose (UA) 100 mg/dL (NEGATIVE) H 01/14/19 17:00 Urine Ketones NEGATIVE mg/dL (NEGATIVE) 01/14/19 17:00 Urine Blood SMALL (NEGATIVE) H 01/14/19 17:00 Urine Nitrate NEGATIVE (NEGATIVE) 01/14/19 17:00 Urine Bilirubin NEGATIVE (NEGATIVE) 01/14/19 17:00 Urine Urobilinogen 0.2 E.U./dL (0.2 - 1.0) 01/14/19 17:00 Ur Leukocyte Esterase MODERATE (NEGATIVE) H 01/14/19 17:00 Urine RBC 2-5 /hpf (0-5) 01/14/19 17:00 Urine WBC 6-10 /hpf (0-5) H 01/14/19 17:00 Ur Epithelial Cells FEW /lpf (FEW) 01/14/19 17:00 Urine Bacteria MANY /hpf (NONE SEEN) H 01/14/19 17:00 RPR NONREACTIVE (NONREACTIVE) 01/10/19 15:10 - Physical Exam Vitals and I&O: Vital Signs Temp 99.1 F 01/21/19 19:54 Pulse 76 01/21/19 19:54 Resp 20 01/21/19 19:58 BP 159/78 01/21/19 19:54 Pulse Ox 94 01/21/19 19:54 Intake & Output 01/21/19 01/21/19 01/22/19 06:59 18:59 06:59 Intake Total 240 1000 240 Balance 240 1000 240 Intake: Oral 240 1000 240 Other: # Voids 1 4 2 # Bowel Movements 1 0 Stool Characteristics Soft Soft Active Medications: Current Medications Acetaminophen (Tylenol Extra Strength) 500 mg PO Q4H PRN PRN Reason: Pain or Fever >101 Stop: 03/12/19 00:41 Last Admin: 01/20/19 21:07 Dose: 500 mg Al Hydrox/Mg Hydrox/Simethicone (Maalox) 30 ml PO Q4HR PRN PRN Reason: GI DISTRESS Stop: 03/11/19 19:56 Albuterol/Ipratropium (Duoneb Neb) 3 ml HHN Q4H PRN PRN Reason: Wheezing Stop: 03/12/19 00:48 Last Admin: 01/15/19 02:47 Dose: 3 ml Aripiprazole (Abilify) 30 mg PO DAILY [facility]; Protocol Stop: 03/17/19 08:59 Last Admin: 01/21/19 08:38 Dose: 30 mg Aspirin (Ecotrin) 81 mg PO DAILY [facility] Stop: 03/12/19 08:59 Last Admin: 01/21/19 08:38 Dose: 81 mg Atorvastatin Calcium (Lipitor) 20 mg PO HS [facility]; Protocol Stop: 03/12/19 20:59 Last Admin: 01/20/19 21:07 Dose: 20 mg Brimonidine Tartrate (Alphagan 0.1% Ophth Soln) 1 drop EACH EYE TID [facility] Stop: 03/12/19 08:59 Last Admin: 01/21/19 14:00 Dose: 1 drop Carvedilol (Coreg) 12.5 mg PO BID [facility] Stop: 03/21/19 08:59 Last Admin: 01/21/19 16:47 Dose: 12.5 mg Clonazepam (Klonopin) 0.5 mg PO BID [facility]; Protocol Stop: 03/22/19 08:59 Docusate Sodium (Colace) 100 mg PO BID [facility] Stop: 03/12/19 08:59 Last Admin: 01/21/19 16:46 Dose: 100 mg Duloxetine HCl (Cymbalta) 60 mg PO DAILY [facility]; Protocol Stop: 03/13/19 11:59 Last Admin: 01/21/19 08:38 Dose: 60 mg Fluticasone Propionate (Flonase) 1 spr NS DAILY [facility] Stop: 03/12/19 08:59 Last Admin: 01/21/19 08:41 Dose: 1 spr Glucagon (Glucagen) 1 mg IM PRN PRN PRN Reason: BS below 70 Stop: 03/11/19 23:24 Haloperidol Decanoate (Haldol Dec) 50 mg IM QMONTH [facility]; Protocol Stop: 03/17/19 15:59 Last Admin: 01/16/19 16:34 Dose: 50 mg Haloperidol Lactate (Haldol Concentrate 10mg/5ml Susp) 5 mg PO BID [facility]; Protocol Stop: 03/18/19 08:59 Last Admin: 01/21/19 16:42 Dose: 5 mg Hydralazine HCl (Apresoline) 10 mg PO BID [facility] Stop: 03/12/19 08:59 Last Admin: 01/21/19 16:42 Dose: 10 mg Ibuprofen (Motrin) 600 mg PO Q8H PRN PRN Reason: breakthrough pain Stop: 03/12/19 00:35 Last Admin: 01/18/19 04:13 Dose: 600 mg Insulin Glargine (Lantus Insulin) 26 units SUBQ HS [facility] Stop: 03/12/19 20:59 Last Admin: 01/20/19 21:08 Dose: 26 units Insulin Human Lispro (Humalog Insulin Sliding Scale) 0 units SUBQ [facility]; Protocol Stop: 03/11/19 20:59 Last Admin: 01/21/19 16:56 Dose: Not Given Isosorbide Dinitrate (Isordil) 10 mg PO Q8HR [facility] Stop: 03/12/19 04:59 Last Admin: 01/21/19 13:28 Dose: 10 mg Latanoprost (Xalatan 0.005% Oph Soln) 1 drop EACH EYE HS [facility] Stop: 03/12/19 20:59 Last Admin: 01/20/19 21:06 Dose: 1 drop Levothyroxine Sodium (Synthroid) 0.075 mg PO QDAC [facility] Stop: 03/12/19 07:29 Last Admin: 01/21/19 06:43 Dose: 0.075 mg Loratadine (Claritin) 10 mg PO DAILY [facility] Stop: 03/12/19 08:59 Last Admin: 01/21/19 08:39 Dose: 10 mg Lorazepam (Ativan) 0.5 mg PO Q4HR PRN; Protocol PRN Reason: Anxiety/Agitation Stop: 02/09/19 19:56 Last Admin: 01/14/19 23:13 Dose: 0.5 mg Losartan Potassium (Cozaar) 50 mg PO DAILY [facility] Stop: 03/12/19 08:59 Last Admin: 01/21/19 08:37 Dose: 50 mg Magnesium Hydroxide (Milk Of Magnesia) 30 ml PO HS PRN PRN Reason: Constipation Multivitamins/Vitamin C (Theragran) 1 tab PO DAILY [facility] Stop: 03/12/19 08:59 Last Admin: 01/21/19 08:37 Dose: 1 tab Naproxen (Naprosyn) 500 mg PO BIDWM [facility] Stop: 03/20/19 17:59 Last Admin: 01/21/19 17:13 Dose: 500 mg Nitroglycerin (Nitrostat) 0.4 mg SL Q5MIN PRN PRN Reason: CHEST PAIN Stop: 03/11/19 23:24 Last Admin: 01/19/19 16:46 Dose: 0.4 mg Nystatin (Nystop) 100 units TP DAILY [facility] Stop: 03/21/19 08:59 Last Admin: 01/21/19 09:00 Dose: 100 units Oxycodone/Acetaminophen (Percocet 5/325mg Oral Tab) 1 tab PO Q8H PRN PRN Reason: severe pain (7-10) Stop: 03/12/19 00:44 Last Admin: 01/21/19 04:36 Dose: 1 tab Senna (Senna) 17.2 mg PO HS [facility] Stop: 03/12/19 20:59 Last Admin: 01/20/19 21:06 Dose: 17.2 mg Sodium Phosphate (Fleet Enema) 135 ml RC DAILY PRN PRN Reason: Constipation Stop: 03/11/19 23:24 Vitamin B Complex/Vit C/Folic Acid (Vitamin B Complex W/Vitamin C) 1 tab PO DAILY [facility] Stop: 03/12/19 08:59 Last Admin: 01/21/19 08:39 Dose: 1 tab Zolpidem Tartrate (Ambien) 5 mg PO HS PRN PRN Reason: Insomnia Stop: 03/11/19 19:56 Last Admin: 01/17/19 00:03 Dose: 5 mg General: alert HEENT: NC/AT, PERRLA, EOMI, anicteric sclerae, throat clear Neck: Supple, No JVD, No thyromegaly, +2 carotid pulse wo bruit, No LAD Lungs: CTAB Cardiovascular: RRR, Normal S1, Normal S2, without murmur Abdomen: soft, non-tender, non-distended Extremities: clear Neurological: no change Internal Medicine Assmt/Plan - Assessment Assessment: 1.DM. 2.HTN. 3.HYPOTHYROIDISM. 4.CHEST WALL PAIN 5.PSYCHOSIS - Plan Plan: CONTINUE ON CURRENT MEDICATION AND DIET. Nutritional Asmnt/Malnutr-PDOC - Dietary Evaluation Malnutrition Findings (Please click <Entered> for more info): Nutritional Asmnt/Malnutrition Start: 01/11/19 12: 41 Text: Status: Complete Freq: Protocol: Document 01/11/19 12:41 AXEL (Rec: 01/11/19 12:45 [email or web address] [email or web address]) Nutritional Asmnt/Malnutrition Patient General Information Nutritional Screening Consult Diagnosis PSYCHOSIS Pertinent Medical Hx/Surgical Hx HTN, DM, HYPOTHYROIDISM, PSYCHOSIS, DJD Subjective Information IA CONSULT: DM PT IS A 78 YEAR OLD FEMALE [facility] AD[facility] ON [facility] D/T AGGRESSIVE BEHAVIOR. PT WAS HERE RECENTLY, DISCHARGED ON . PER MEAL/NUTRITION ACTIVITY RECORD, PT TYPICALLY ATE 100% MEALS. HT: 59 WT: 310 LB (141 KG) ABW: 186 LB (84.66 KG) BMI: 45.78 (OBESE III) GI: WNL, NON-TENDER, LARGE, ROUND BM: NOT NOTED I/O: 240/NOT NOTED SKIN: SKIN BREAKDOWN TO BUTTOCKS AREA LUIS: NOT NOTED DIET ORDER: CCHO 45GM, PUREED ESTIMATED ENERGY NEEDS: (OBESE III, ABW) 3267-5478 KCALS (20-25 KCALS/ KG) 68-85 G PRO (0.8-1.0 G/KG) 8556-4439 ML (25-30 ML/KG) PT PO INTAKE: 100% SNACK PROVIDED. Current Diet Order/ Nutrition Support CCHO 45GM, PUREED Pertinent Medications MAALOX (PRN), ALBUTEROL (PRN), LIPITOR, COREG, COLACE, GLUCAGON (PRN), LANTUS, SYNTHROID, INS-SS, COZAAR, MOM (PRN), THEREGRAN, SENNA, FLEET ENEMA (PRN), VIT B COMLPEX WITH VIT C Pertinent Labs 01/10: NA 131, GLUCOSE 363 POC GLUCOSE (LAST 24 HOURS): 257, 250 Nutritional Hx/Data Height 1.75 m Height (Calculated Centimeters) 175.3 Current Weight (lbs) 140.614 kg Weight (Calculated Kilograms) 140.6 Weight (Calculated Grams) 971403.6 [place] Body Weight 145 % [place] Body Weight 214 Body Mass Index (BMI) 45.8 Weight Status Morbidly Obese GI Symptoms GI Symptoms None Last BM NOT NOTED Skin Integrity/Comment: SKIN BREAKDOWN TO BUTTOCKS AREA LUIS: NOT NOTED Current %PO Good (75-100%) Estimated Nutritional Goals BEE in Kcals: Adj wt of IBW Calories/Kcals/Kg 20-25 Kcals Calculated 8574-7004 Protein: Adj wt of IBW Protein g/k.8-1.0 Protein Calculated 68-85 Fluid: ml 9509-8318 ML (25-30 ML/KG) Nutritional Problem 1. Problem Problem ALTERED NUTRITION RELATED LABS Etiology R/T ENDOCRINE DYSFUNCTION Signs/Symptoms: AEB HX DM AND GLUCOSE 363 Malnutrition Related to Morbid Obesity Malnutrition related to morbid obesity Weight 200% of ideal wt Query Text:(Any 1 Criteria met) Malnutrition related to morbid obesity Yes Intervention/Recommendation Comments 1. CONTINUE WITH [facility] 45GM, PUREED DIET ORDERED. 2. CONTNIUE ANTIHYPERGLYCEMIC MEDICATION FOR GLUCOSE CONTROL PER MD ORDER. Expected Outcomes/Goals Expected Outcomes/Goals 1. PO INTAKE TO MEET 75% OF NUTRITIONAL NEEDS. 2. MONITOR PO INTAKE, WT, NUTRITION RELATED LABS AND SKIN INTEGRITY. 3. F/U LOW RISK IN 7 DAYS, 01/18
[2019-01-21] MEDS: Atorvastatin Calcium 10 MG TAB PO SCH (21:45)
[2019-01-21] MEDS: Insulin Glargine 100 units/ml 10ml Vial SUBQ SCH (21:45)
[2019-01-21] MEDS: Acetaminophen 500 MG TAB PO PRN (22:32)
--- NOTE | 2019-01-21 23:11 | Progress Notes ---
DATE: 01/21/2019 PSYCHIATRIC PROGRESS NOTE SUBJECTIVE: Chart reviewed and the patient interviewed. Also discussed the patient's condition with the staff and reviewed records and labs. The patient is still demanding and she is still in a depressed mood. The patient also is still having episodes of yelling and screaming, but seems to be much less than before. The patient also is still suspicious and paranoid to the surroundings. Otherwise, the patient is compliant with taking her medications with no side effects of medications. ASSESSMENT: The patient is still paranoid and agitated. TREATMENT PLAN: Continue to monitor her behavior and her condition closely. Also, we will continue current medications, but we will add Klonopin 0.5 mg twice a day, and we will continue to follow up. [facility]# [id number]
[2019-01-22] MEDS: APAP/Oxycodone 5/325mg Tab PO PRN (04:52)
[2019-01-22] MEDS: Levothyroxine 0.075 Mg Tab PO SCH (06:53)
[2019-01-22] MEDS: INSULIN LISPRO SLIDING SCALE 100 UNITS/ML UNIT SUBQ SCH ×5 (06:55→21:45)
[2019-01-22] MEDS: Haldol Oral Sol.(concentrate) 10 mg/5 mL Udc PO SCH ×2 (08:31→16:56)
[2019-01-22] MEDS: Vitamin B Complex w/Vitamin C Tab PO SCH (08:32)
[2019-01-22] MEDS: Multivitamin Tab PO SCH (08:33)
[2019-01-22] MEDS: Fluticasone Propionate Nasal 1 SPR SPR NS SCH (08:40)
[2019-01-22] MEDS: NYSTATIN 100000 UNITS/GM POWD TP SCH (08:42)
[2019-01-22] MEDS: Insulin Glargine 100 units/ml 10ml Vial SUBQ SCH (21:45)
[2019-01-22] MEDS: Atorvastatin Calcium 10 MG TAB PO SCH (21:46)
--- NOTE | 2019-01-22 22:29 | Internal Medicine Prog Note ---
Internal Medicine Subjective - Subjective Service Date: 01/22/19 Patient seen and examined:: with staff (SHE FEELS WELL) Patient is:: awake, verbal, in bed, talking Per staff patient has:: no adverse event Internal Medicine Objective - Results Result Diagrams: 01/10/19 15:10 01/10/19 15:10 Recent Labs: Laboratory Last Values WBC 8.4 Th/cmm (4.8-10.8) 01/10/19 15:10 RBC 5.16 Mil/cmm (3.80-5.20) 01/10/19 15:10 Hgb 14.9 gm/dL (12-16) 01/10/19 15:10 Hct 44.3 % (41.0-60) 01/10/19 15:10 MCV 85.8 fl (81-100) 01/10/19 15:10 MCH 28.9 pg (27.0-31.0) 01/10/19 15:10 MCHC Differential 33.7 pg (28.0-36.0) 01/10/19 15:10 RDW 12.1 % (11.5-20.0) 01/10/19 15:10 Plt Count 291 Th/cmm (150-400) 01/10/19 15:10 MPV 7.3 fl 01/10/19 15:10 Neutrophils % 59.5 % (40.0-80.0) 01/10/19 15:10 Lymphocytes % 31.2 % (20.0-50.0) 01/10/19 15:10 Monocytes % 5.0 % (2.0-10.0) 01/10/19 15:10 Eosinophils % 4.3 % (0.0-5.0) 01/10/19 15:10 Basophils % 0.0 % (0.0-2.0) 01/10/19 15:10 Sodium 131 mEq/L (136-145) L 01/10/19 15:10 Potassium 4.2 mEq/L (3.5-5.1) 01/10/19 15:10 Chloride 96 mEq/L (98-107) L 01/10/19 15:10 Carbon Dioxide 23.9 mEq/L (21.0-31.0) 01/10/19 15:10 Anion Gap 15.3 (7.0-16.0) 01/10/19 15:10 BUN 18 mg/dL (7-25) 01/10/19 15:10 Creatinine 1.0 mg/dL (0.6-1.2) 01/10/19 15:10 Est GFR ( Amer) TNP 01/10/19 15:10 Est GFR (Non-Af Amer) TNP 01/10/19 15:10 BUN/Creatinine Ratio 18.0 01/10/19 15:10 Glucose 363 mg/dL (70-105) H 01/10/19 15:10 POC Glucose 231 MG/DL (70 - 105) H 01/16/19 16:34 Calcium 9.6 mg/dL (8.6-10.3) 01/10/19 15:10 Total Bilirubin 0.5 mg/dL (0.3-1.0) 01/10/19 15:10 AST 13 U/L (13-39) 01/10/19 15:10 ALT 14 U/L (7-52) 01/10/19 15:10 Alkaline Phosphatase 66 U/L (34-104) 01/10/19 15:10 Troponin I 0.04 ng/mL (0.01-0.05) 01/19/19 22:30 Total Protein 7.1 gm/dL (6.0-8.3) 01/10/19 15:10 Albumin 3.7 gm/dL (3.7-5.3) 01/10/19 15:10 Globulin 3.4 gm/dL 01/10/19 15:10 Albumin/Globulin Ratio 1.1 (1.0-1.8) 01/10/19 15:10 Triglycerides 417 mg/dL (<150) H 01/10/19 15:10 Cholesterol 188 mg/dL (<200) 01/10/19 15:10 LDL Cholesterol Direct 109 mg/dL (75-193) 01/10/19 15:10 HDL Cholesterol 27 mg/dL (23-92) 01/10/19 15:10 TSH 1.76 uIU/ml (0.34-5.60) 01/10/19 15:10 Urine Source CLEAN C 01/14/19 17:00 Urine Color YELLOW 01/14/19 17:00 Urine Clarity CLOUDY (CLEAR) H 01/14/19 17:00 Urine pH 6.5 (4.6 - 8.0) 01/14/19 17:00 Ur Specific [place] <= 1.005 (1.005-1.030) 01/14/19 17:00 Urine Protein NEGATIVE mg/dL (NEGATIVE) 01/14/19 17:00 Urine Glucose (UA) 100 mg/dL (NEGATIVE) H 01/14/19 17:00 Urine Ketones NEGATIVE mg/dL (NEGATIVE) 01/14/19 17:00 Urine Blood SMALL (NEGATIVE) H 01/14/19 17:00 Urine Nitrate NEGATIVE (NEGATIVE) 01/14/19 17:00 Urine Bilirubin NEGATIVE (NEGATIVE) 01/14/19 17:00 Urine Urobilinogen 0.2 E.U./dL (0.2 - 1.0) 01/14/19 17:00 Ur Leukocyte Esterase MODERATE (NEGATIVE) H 01/14/19 17:00 Urine RBC 2-5 /hpf (0-5) 01/14/19 17:00 Urine WBC 6-10 /hpf (0-5) H 01/14/19 17:00 Ur Epithelial Cells FEW /lpf (FEW) 01/14/19 17:00 Urine Bacteria MANY /hpf (NONE SEEN) H 01/14/19 17:00 RPR NONREACTIVE (NONREACTIVE) 01/10/19 15:10 - Physical Exam Vitals and I&O: Vital Signs Temp 98.9 F 01/22/19 19:53 Pulse 75 01/22/19 21:47 Resp 18 01/22/19 20:00 BP 136/70 01/22/19 21:47 Pulse Ox 98 01/22/19 19:53 Intake & Output 01/22/19 01/22/19 01/23/19 06:59 18:59 06:59 Intake Total 480 1080 120 Balance 480 1080 120 Intake: Oral 480 1080 120 Other: # Voids 3 4 3 # Bowel Movements 0 2 0 Active Medications: Current Medications Acetaminophen (Tylenol Extra Strength) 500 mg PO Q4H PRN PRN Reason: Pain or Fever >101 Stop: 03/12/19 00:41 Last Admin: 01/21/19 22:32 Dose: 500 mg Al Hydrox/Mg Hydrox/Simethicone (Maalox) 30 ml PO Q4HR PRN PRN Reason: GI DISTRESS Stop: 03/11/19 19:56 Albuterol/Ipratropium (Duoneb Neb) 3 ml HHN Q4H PRN PRN Reason: Wheezing Stop: 03/12/19 00:48 Last Admin: 01/15/19 02:47 Dose: 3 ml Aripiprazole (Abilify) 30 mg PO DAILY [facility]; Protocol Stop: 03/17/19 08:59 Last Admin: 01/22/19 08:33 Dose: 30 mg Aspirin (Ecotrin) 81 mg PO DAILY [facility] Stop: 03/12/19 08:59 Last Admin: 01/22/19 08:32 Dose: 81 mg Atorvastatin Calcium (Lipitor) 20 mg PO HS [facility]; Protocol Stop: 03/12/19 20:59 Last Admin: 01/22/19 21:46 Dose: 20 mg Brimonidine Tartrate (Alphagan 0.1% Oph Soln) 1 drop EACH EYE TID CAL Stop: 03/12/19 08:59 Last Admin: 01/22/19 21:46 Dose: 1 drop Carvedilol (Coreg) 12.5 mg PO BID [facility] Stop: 03/21/19 08:59 Last Admin: 01/22/19 16:57 Dose: 12.5 mg Clonazepam (Klonopin) 0.5 mg PO BID [facility]; Protocol Stop: 03/22/19 08:59 Last Admin: 01/22/19 16:57 Dose: 0.5 mg Docusate Sodium (Colace) 100 mg PO BID [facility] Stop: 03/12/19 08:59 Last Admin: 01/22/19 16:56 Dose: 100 mg Duloxetine HCl (Cymbalta) 60 mg PO DAILY [facility]; Protocol Stop: 03/13/19 11:59 Last Admin: 01/22/19 08:34 Dose: 60 mg Fluticasone Propionate (Flonase) 1 spr NS DAILY [facility] Stop: 03/12/19 08:59 Last Admin: 01/22/19 08:40 Dose: 1 spr Glucagon (Glucagen) 1 mg IM PRN PRN PRN Reason: BS below 70 Stop: 03/11/19 23:24 Haloperidol Decanoate (Haldol Dec) 50 mg IM QMONTH [facility]; Protocol Stop: 03/17/19 15:59 Last Admin: 01/16/19 16:34 Dose: 50 mg Haloperidol Lactate (Haldol Concentrate 10mg/5ml Susp) 5 mg PO BID [facility]; Protocol Stop: 03/18/19 08:59 Last Admin: 01/22/19 16:56 Dose: 5 mg Hydralazine HCl (Apresoline) 10 mg PO BID [facility] Stop: 03/12/19 08:59 Last Admin: 01/22/19 16:58 Dose: 10 mg Ibuprofen (Motrin) 600 mg PO Q8H PRN PRN Reason: breakthrough pain Stop: 03/12/19 00:35 Last Admin: 01/18/19 04:13 Dose: 600 mg Insulin Glargine (Lantus Insulin) 26 units SUBQ HS [facility] Stop: 03/12/19 20:59 Last Admin: 01/22/19 21:45 Dose: 26 units Insulin Human Lispro (Humalog Insulin Sliding Scale) [address] [facility]; Protocol Stop: 03/11/19 20:59 Last Admin: 01/22/19 21:45 Dose: 2 units Isosorbide Dinitrate (Isordil) 10 mg PO Q8HR [facility] Stop: 03/12/19 04:59 Last Admin: 01/22/19 21:47 Dose: 10 mg Latanoprost (Xalatan 0.005% Oph Soln) 1 drop EACH EYE HS [facility] Stop: 03/12/19 20:59 Last Admin: 01/22/19 21:46 Dose: Not Given Levothyroxine Sodium (Synthroid) 0.075 mg PO QDAC [facility] Stop: 03/12/19 07:29 Last Admin: 01/22/19 06:53 Dose: 0.075 mg Loratadine (Claritin) 10 mg PO DAILY [facility] Stop: 03/12/19 08:59 Last Admin: 01/22/19 08:34 Dose: 10 mg Lorazepam (Ativan) 0.5 mg PO Q4HR PRN; Protocol PRN Reason: Anxiety/Agitation Stop: 02/09/19 19:56 Last Admin: 01/14/19 23:13 Dose: 0.5 mg Losartan Potassium (Cozaar) 50 mg PO DAILY [facility] Stop: 03/12/19 08:59 Last Admin: 01/22/19 08:39 Dose: Not Given Magnesium Hydroxide (Milk Of Magnesia) 30 ml PO HS PRN PRN Reason: Constipation Multivitamins/Vitamin C (Theragran) 1 tab PO DAILY [facility] Stop: 03/12/19 08:59 Last Admin: 01/22/19 08:33 Dose: 1 tab Naproxen (Naprosyn) 500 mg PO BIDWM [facility] Stop: 03/20/19 17:59 Last Admin: 01/22/19 17:38 Dose: 500 mg Nitroglycerin (Nitrostat) 0.4 mg SL Q5MIN PRN PRN Reason: CHEST PAIN Stop: 03/11/19 23:24 Last Admin: 01/19/19 16:46 Dose: 0.4 mg Nystatin (Nystop) 100 units TP DAILY [facility] Stop: 03/21/19 08:59 Last Admin: 01/22/19 08:42 Dose: 100 units Oxycodone/Acetaminophen (Percocet 5/325mg Oral Tab) 1 tab PO Q8H PRN PRN Reason: severe pain (7-10) Stop: 03/12/19 00:44 Last Admin: 01/22/19 04:52 Dose: 1 tab Senna (Senna) 17.2 mg PO HS [facility] Stop: 03/12/19 20:59 Last Admin: 01/22/19 21:48 Dose: 17.2 mg Sodium Phosphate (Fleet Enema) 135 ml RC DAILY PRN PRN Reason: Constipation Stop: 03/11/19 23:24 Vitamin B Complex/Vit C/Folic Acid (Vitamin B Complex W/Vitamin C) 1 tab PO DAILY [facility] Stop: 03/12/19 08:59 Last Admin: 01/22/19 08:32 Dose: 1 tab Zolpidem Tartrate (Ambien) 5 mg PO HS PRN PRN Reason: Insomnia Stop: 03/11/19 19:56 Last Admin: 01/22/19 21:50 Dose: 5 mg General: alert HEENT: NC/AT, PERRLA, EOMI, anicteric sclerae, throat clear Neck: Supple, No JVD, No thyromegaly, +2 carotid pulse wo bruit, No LAD Lungs: CTAB Cardiovascular: RRR, Normal S1, Normal S2, without murmur Abdomen: soft, non-tender, non-distended Extremities: clear Neurological: no change Internal Medicine Assmt/Plan - Assessment Assessment: 1.DM. 2.HTN. 3.HYPOTHYROIDISM. 4.CHEST WALL PAIN 5.PSYCHOSIS - Plan Plan: CONTINUE ON CURRENT MEDICATION AND DIET. Nutritional Asmnt/Malnutr-PDOC - Dietary Evaluation Malnutrition Findings (Please click <Entered> for more info): Nutritional Asmnt/Malnutrition Start: 01/11/19 12: 41 Text: Status: Complete Freq: Protocol: Document 01/11/19 12:41 AXEL (Rec: 01/11/19 12:45 [email or web address] [email or web address]) Nutritional Asmnt/Malnutrition Patient General Information Nutritional Screening Consult Diagnosis PSYCHOSIS Pertinent Medical Hx/Surgical Hx HTN, DM, HYPOTHYROIDISM, PSYCHOSIS, DJD Subjective Information IA CONSULT: DM PT IS A 78 YEAR OLD FEMALE [facility] D/T AGGRESSIVE BEHAVIOR. PT WAS HERE RECENTLY, DISCHARGED ON . PER MEAL/NUTRITION ACTIVITY RECORD, PT TYPICALLY ATE 100% MEALS. HT: 59 WT: 310 LB (141 KG) ABW: 186 LB (84.66 KG) BMI: 45.78 (OBESE III) GI: WNL, NON-TENDER, LARGE, ROUND BM: NOT NOTED I/O: 240/NOT NOTED SKIN: SKIN BREAKDOWN TO BUTTOCKS AREA LUIS: NOT NOTED DIET ORDER: CCHO 45GM, PUREED ESTIMATED ENERGY NEEDS: (OBESE III, ABW) 1406-4260 KCALS (20-25 KCALS/ KG) 68-85 G PRO (0.8-1.0 G/KG) 9533-7854 ML (25-30 ML/KG) PT PO INTAKE: 100% SNACK PROVIDED. Current Diet Order/ Nutrition Support CCHO 45GM, PUREED Pertinent Medications MAALOX (PRN), ALBUTEROL (PRN), LIPITOR, COREG, COLACE, GLUCAGON (PRN), LANTUS, SYNTHROID, INS-SS, COZAAR, MOM (PRN), THEREGRAN, SENNA, FLEET ENEMA (PRN), VIT B COMLPEX WITH VIT C Pertinent Labs 01/10: NA 131, GLUCOSE 363 POC GLUCOSE (LAST 24 HOURS): 257, 250 Nutritional Hx/Data Height 1.75 m Height (Calculated Centimeters) 175.3 Current Weight (lbs) 140.614 kg Weight (Calculated Kilograms) 140.6 Weight (Calculated Grams) 576237.6 [place] Body Weight 145 % [place] Body Weight 214 Body Mass Index (BMI) 45.8 Weight Status Morbidly Obese GI Symptoms GI Symptoms None Last BM NOT NOTED Skin Integrity/Comment: SKIN BREAKDOWN TO BUTTOCKS AREA LUIS: NOT NOTED Current %PO Good (75-100%) Estimated Nutritional Goals BEE in Kcals: Adj wt of IBW Calories/Kcals/Kg 20-25 Kcals Calculated 7466-8638 Protein: Adj wt of IBW Protein g/k.8-1.0 Protein Calculated 68-85 Fluid: ml 7184-4055 ML (25-30 ML/KG) Nutritional Problem 1. Problem Problem ALTERED NUTRITION RELATED LABS Etiology R/T ENDOCRINE DYSFUNCTION Signs/Symptoms: AEB HX DM AND GLUCOSE 363 Malnutrition Related to Morbid Obesity Malnutrition related to morbid obesity Weight 200% of ideal wt Query Text:(Any 1 Criteria met) Malnutrition related to morbid obesity Yes Intervention/Recommendation Comments 1. CONTINUE WITH [facility] 45GM, PUREED DIET ORDERED. 2. CONTNIUE ANTIHYPERGLYCEMIC MEDICATION FOR GLUCOSE CONTROL PER MD ORDER. Expected Outcomes/Goals Expected Outcomes/Goals 1. PO INTAKE TO MEET 75% OF NUTRITIONAL NEEDS. 2. MONITOR PO INTAKE, WT, NUTRITION RELATED LABS AND SKIN INTEGRITY. 3. F/U LOW RISK IN 7 DAYS, 01/18
--- NOTE | 2019-01-22 23:17 | Progress Notes ---
DATE: 01/22/2019 PSYCHIATRIC PROGRESS NOTE SUBJECTIVE: Chart reviewed and the patient interviewed. Also discussed the patient's condition with the staff and reviewed records and labs. The patient is still easily irritable and easily agitated, but seems to be less than before. The patient also is still suspicious and is still paranoid. On the other hand, the patient is less aggressive and does not throw objects or hit others that she used to be. Also, decreased yelling and screaming. The patient also is compliant with taking her medications with no side effects. ASSESSMENT: The patient is less agitated and less irritable. TREATMENT PLAN: Continue to monitor her behavior and her condition closely. Also, continue to work on discharge plans and placement issue. [facility]# [id number]
[2019-01-23] MEDS: APAP/Oxycodone 5/325mg Tab PO PRN (00:56)
[2019-01-23] MEDS: INSULIN LISPRO SLIDING SCALE 100 UNITS/ML UNIT SUBQ SCH ×4 (06:48→22:17)
[2019-01-23] MEDS: NYSTATIN 100000 UNITS/GM POWD TP SCH (09:00)
[2019-01-23] MEDS: Haldol Oral Sol.(concentrate) 10 mg/5 mL Udc PO SCH ×2 (09:00→19:03)
[2019-01-23] MEDS: Multivitamin Tab PO SCH (09:00)
[2019-01-23] MEDS: Vitamin B Complex w/Vitamin C Tab PO SCH (09:00)
[2019-01-23] MEDS: Levothyroxine 0.075 Mg Tab PO SCH (12:53)
[2019-01-23] MEDS: Fluticasone Propionate Nasal 1 SPR SPR NS SCH (19:01)
--- NOTE | 2019-01-23 21:02 | Progress Notes ---
DATE: PSYCHIATRIC PROGRESS NOTE SUBJECTIVE: Chart reviewed and the patient interviewed. Also discussed the patient's condition with the staff and reviewed records and labs. The patient is still anxious and she is still in depressed mood. The patient also still needs redirections and she still has episodes of anger and being restless. The patient also is still suspicious and paranoid, but needed redirection. Decreased behavioral problems. Otherwise, no side effect of medications. ASSESSMENT: The patient is still anxious and still needs monitoring closely. TREATMENT PLAN: Plan is to continue monitoring her behavior closely. Also, working on discharge plans and placement issue, and if the patient will be able to go back to [facility]. Discussed with showcase maker and we will continue to work on discharge plans. [facility]# [id number] [id number]
[2019-01-23] MEDS: Atorvastatin Calcium 10 MG TAB PO SCH (21:57)
[2019-01-23] MEDS: Insulin Glargine 100 units/ml 10ml Vial SUBQ SCH (22:17)
--- NOTE | 2019-01-23 22:23 | Internal Medicine Prog Note ---
Internal Medicine Subjective - Subjective Service Date: 01/23/19 Patient seen and examined:: without staff (SHE FEELS WELL) Patient is:: awake, verbal, in bed, talking Per staff patient has:: no adverse event Internal Medicine Objective - Results Result Diagrams: 01/10/19 15:10 01/10/19 15:10 Recent Labs: Laboratory Last Values WBC 8.4 Th/cmm (4.8-10.8) 01/10/19 15:10 RBC 5.16 Mil/cmm (3.80-5.20) 01/10/19 15:10 Hgb 14.9 gm/dL (12-16) 01/10/19 15:10 Hct 44.3 % (41.0-60) 01/10/19 15:10 MCV 85.8 fl (81-100) 01/10/19 15:10 MCH 28.9 pg (27.0-31.0) 01/10/19 15:10 MCHC Differential 33.7 pg (28.0-36.0) 01/10/19 15:10 RDW 12.1 % (11.5-20.0) 01/10/19 15:10 Plt Count 291 Th/cmm (150-400) 01/10/19 15:10 MPV 7.3 fl 01/10/19 15:10 Neutrophils % 59.5 % (40.0-80.0) 01/10/19 15:10 Lymphocytes % 31.2 % (20.0-50.0) 01/10/19 15:10 Monocytes % 5.0 % (2.0-10.0) 01/10/19 15:10 Eosinophils % 4.3 % (0.0-5.0) 01/10/19 15:10 Basophils % 0.0 % (0.0-2.0) 01/10/19 15:10 Sodium 131 mEq/L (136-145) L 01/10/19 15:10 Potassium 4.2 mEq/L (3.5-5.1) 01/10/19 15:10 Chloride 96 mEq/L (98-107) L 01/10/19 15:10 Carbon Dioxide 23.9 mEq/L (21.0-31.0) 01/10/19 15:10 Anion Gap 15.3 (7.0-16.0) 01/10/19 15:10 BUN 18 mg/dL (7-25) 01/10/19 15:10 Creatinine 1.0 mg/dL (0.6-1.2) 01/10/19 15:10 Est GFR ( Amer) TNP 01/10/19 15:10 Est GFR (Non-Af Amer) TNP 01/10/19 15:10 BUN/Creatinine Ratio 18.0 01/10/19 15:10 Glucose 363 mg/dL (70-105) H 01/10/19 15:10 POC Glucose 231 MG/DL (70 - 105) H 01/16/19 16:34 Calcium 9.6 mg/dL (8.6-10.3) 01/10/19 15:10 Total Bilirubin 0.5 mg/dL (0.3-1.0) 01/10/19 15:10 AST 13 U/L (13-39) 01/10/19 15:10 ALT 14 U/L (7-52) 01/10/19 15:10 Alkaline Phosphatase 66 U/L (34-104) 01/10/19 15:10 Troponin I 0.04 ng/mL (0.01-0.05) 01/19/19 22:30 Total Protein 7.1 gm/dL (6.0-8.3) 01/10/19 15:10 Albumin 3.7 gm/dL (3.7-5.3) 01/10/19 15:10 Globulin 3.4 gm/dL 01/10/19 15:10 Albumin/Globulin Ratio 1.1 (1.0-1.8) 01/10/19 15:10 Triglycerides 417 mg/dL (<150) H 01/10/19 15:10 Cholesterol 188 mg/dL (<200) 01/10/19 15:10 LDL Cholesterol Direct 109 mg/dL (75-193) 01/10/19 15:10 HDL Cholesterol 27 mg/dL (23-92) 01/10/19 15:10 TSH 1.76 uIU/ml (0.34-5.60) 01/10/19 15:10 Urine Source CLEAN C 01/14/19 17:00 Urine Color YELLOW 01/14/19 17:00 Urine Clarity CLOUDY (CLEAR) H 01/14/19 17:00 Urine pH 6.5 (4.6 - 8.0) 01/14/19 17:00 Ur Specific [place] <= 1.005 (1.005-1.030) 01/14/19 17:00 Urine Protein NEGATIVE mg/dL (NEGATIVE) 01/14/19 17:00 Urine Glucose (UA) 100 mg/dL (NEGATIVE) H 01/14/19 17:00 Urine Ketones NEGATIVE mg/dL (NEGATIVE) 01/14/19 17:00 Urine Blood SMALL (NEGATIVE) H 01/14/19 17:00 Urine Nitrate NEGATIVE (NEGATIVE) 01/14/19 17:00 Urine Bilirubin NEGATIVE (NEGATIVE) 01/14/19 17:00 Urine Urobilinogen 0.2 E.U./dL (0.2 - 1.0) 01/14/19 17:00 Ur Leukocyte Esterase MODERATE (NEGATIVE) H 01/14/19 17:00 Urine RBC 2-5 /hpf (0-5) 01/14/19 17:00 Urine WBC 6-10 /hpf (0-5) H 01/14/19 17:00 Ur Epithelial Cells FEW /lpf (FEW) 01/14/19 17:00 Urine Bacteria MANY /hpf (NONE SEEN) H 01/14/19 17:00 RPR NONREACTIVE (NONREACTIVE) 01/10/19 15:10 - Physical Exam Vitals and I&O: Vital Signs Temp 98.6 F 01/23/19 20:25 Pulse 76 01/23/19 21:57 Resp 20 01/23/19 20:25 BP 164/90 01/23/19 21:57 Pulse Ox 96 01/23/19 20:25 Intake & Output 01/23/19 01/23/19 01/24/19 06:59 18:59 06:59 Intake Total 280 1000 240 Balance 280 1000 240 Intake: Oral 280 1000 240 Other: # Voids 2 4 2 # Bowel Movements 0 0 1 Active Medications: Current Medications Acetaminophen (Tylenol Extra Strength) 500 mg PO Q4H PRN PRN Reason: Pain or Fever >101 Stop: 03/12/19 00:41 Last Admin: 01/21/19 22:32 Dose: 500 mg Al Hydrox/Mg Hydrox/Simethicone (Maalox) 30 ml PO Q4HR PRN PRN Reason: GI DISTRESS Stop: 03/11/19 19:56 Albuterol/Ipratropium (Duoneb Neb) 3 ml HHN Q4H PRN PRN Reason: Wheezing Stop: 03/12/19 00:48 Last Admin: 01/15/19 02:47 Dose: 3 ml Aripiprazole (Abilify) 30 mg PO DAILY [facility]; Protocol Stop: 03/17/19 08:59 Last Admin: 01/23/19 09:00 Dose: Not Given Aspirin (Ecotrin) 81 mg PO DAILY [facility] Stop: 03/12/19 08:59 Last Admin: 01/23/19 09:00 Dose: Not Given Atorvastatin Calcium (Lipitor) 20 mg PO HS [facility]; Protocol Stop: 03/12/19 20:59 Last Admin: 01/23/19 21:57 Dose: 20 mg Brimonidine Tartrate (Alphagan 0.1% Oph Soln) 1 drop EACH EYE TID [facility] Stop: 03/12/19 08:59 Last Admin: 01/23/19 21:58 Dose: 1 drop Carvedilol (Coreg) 12.5 mg PO BID [facility] Stop: 03/21/19 08:59 Last Admin: 01/23/19 17:42 Dose: 12.5 mg Clonazepam (Klonopin) 0.5 mg PO BID [facility]; Protocol Stop: 03/22/19 08:59 Last Admin: 01/23/19 17:42 Dose: 0.5 mg Docusate Sodium (Colace) 100 mg PO BID [facility] Stop: 03/12/19 08:59 Last Admin: 01/23/19 17:40 Dose: 100 mg Duloxetine HCl (Cymbalta) 60 mg PO DAILY [facility]; Protocol Stop: 03/13/19 11:59 Last Admin: 01/23/19 09:00 Dose: Not Given Fluticasone Propionate (Flonase) 1 spr NS DAILY [facility] Stop: 03/12/19 08:59 Last Admin: 01/23/19 19:01 Dose: Not Given Glucagon (Glucagen) 1 mg IM PRN PRN PRN Reason: BS below 70 Stop: 03/11/19 23:24 Haloperidol Decanoate (Haldol Dec) 50 mg IM QMONTH CAL; Protocol Stop: 03/17/19 15:59 Last Admin: 01/16/19 16:34 Dose: 50 mg Haloperidol Lactate (Haldol Concentrate 10mg/5ml Susp) 5 mg PO BID [facility]; Protocol Stop: 03/18/19 08:59 Last Admin: 01/23/19 19:03 Dose: 5 mg Hydralazine HCl (Apresoline) 10 mg PO BID [facility] Stop: 03/12/19 08:59 Last Admin: 01/23/19 17:00 Dose: Not Given Ibuprofen (Motrin) 600 mg PO Q8H PRN PRN Reason: breakthrough pain Stop: 03/12/19 00:35 Last Admin: 01/23/19 12:55 Dose: 600 mg Insulin Glargine (Lantus Insulin) 26 units SUBQ HS [facility] Stop: 03/12/19 20:59 Last Admin: 01/23/19 22:17 Dose: 26 units Insulin Human Lispro (Humalog Insulin Sliding Scale) 0 units SUBQ [facility]; Protocol Stop: 03/11/19 20:59 Last Admin: 01/23/19 22:17 Dose: Not Given Isosorbide Dinitrate (Isordil) 10 mg PO Q8HR [facility] Stop: 03/12/19 04:59 Last Admin: 01/23/19 21:57 Dose: 10 mg Latanoprost (Xalatan 0.005% Oph Soln) 1 drop EACH EYE HS [facility] Stop: 03/12/19 20:59 Last Admin: 01/23/19 21:58 Dose: 1 drop Levothyroxine Sodium (Synthroid) 0.075 mg PO QDAC [facility] Stop: 03/12/19 07:29 Last Admin: 01/23/19 12:53 Dose: 0.075 mg Loratadine (Claritin) 10 mg PO DAILY [facility] Stop: 03/12/19 08:59 Last Admin: 01/23/19 09:00 Dose: Not Given Lorazepam (Ativan) 0.5 mg PO Q4HR PRN; Protocol PRN Reason: Anxiety/Agitation Stop: 02/09/19 19:56 Last Admin: 01/14/19 23:13 Dose: 0.5 mg Losartan Potassium (Cozaar) 50 mg PO DAILY [facility] Stop: 03/12/19 08:59 Last Admin: 01/23/19 09:00 Dose: Not Given Magnesium Hydroxide (Milk Of Magnesia) 30 ml PO HS PRN PRN Reason: Constipation Multivitamins/Vitamin C (Theragran) 1 tab PO DAILY [facility] Stop: 03/12/19 08:59 Last Admin: 01/23/19 09:00 Dose: Not Given Naproxen (Naprosyn) 500 mg PO BIDWM [facility] Stop: 03/20/19 17:59 Last Admin: 01/23/19 17:38 Dose: 500 mg Nitroglycerin (Nitrostat) 0.4 mg SL Q5MIN PRN PRN Reason: CHEST PAIN Stop: 03/11/19 23:24 Last Admin: 01/19/19 16:46 Dose: 0.4 mg Nystatin (Nystop) 100 units TP DAILY [facility] Stop: 03/21/19 08:59 Last Admin: 01/23/19 09:00 Dose: 100 units Oxycodone/Acetaminophen (Percocet 5/325mg Oral Tab) 1 tab PO Q8H PRN PRN Reason: severe pain (7-10) Stop: 03/12/19 00:44 Last Admin: 01/23/19 00:56 Dose: 1 tab Senna (Senna) 17.2 mg PO HS [facility] Stop: 03/12/19 20:59 Last Admin: 01/23/19 21:58 Dose: 17.2 mg Sodium Phosphate (Fleet Enema) 135 ml RC DAILY PRN PRN Reason: Constipation Stop: 03/11/19 23:24 Vitamin B Complex/Vit C/Folic Acid (Vitamin B Complex W/Vitamin C) 1 tab PO DAILY [facility] Stop: 03/12/19 08:59 Last Admin: 01/23/19 09:00 Dose: Not Given Zolpidem Tartrate (Ambien) 5 mg PO HS PRN PRN Reason: Insomnia Stop: 03/11/19 19:56 Last Admin: 01/22/19 21:50 Dose: 5 mg General: alert HEENT: NC/AT, PERRLA, EOMI, anicteric sclerae, throat clear Neck: Supple, No JVD, No thyromegaly, +2 carotid pulse wo bruit, No LAD Lungs: CTAB Cardiovascular: RRR, Normal S1, Normal S2, without murmur Abdomen: soft, non-tender, non-distended Extremities: clear Neurological: no change Internal Medicine Assmt/Plan - Assessment Assessment: 1.DM. 2.HTN. 3.HYPOTHYROIDISM. 5.PSYCHOSIS - Plan Plan: CONTINUE ON CURRENT MEDICATION AND DIET. Nutritional Asmnt/Malnutr-PDOC - Dietary Evaluation Malnutrition Findings (Please click <Entered> for more info): Nutritional Asmnt/Malnutrition Start: 01/11/19 12: 41 Text: Status: Complete Freq: Protocol: Document 01/11/19 12:41 AXEL (Rec: 01/11/19 12:45 [email or web address] [email or web address]) Nutritional Asmnt/Malnutrition Patient General Information Nutritional Screening Consult Diagnosis PSYCHOSIS Pertinent Medical Hx/Surgical Hx HTN, DM, HYPOTHYROIDISM, PSYCHOSIS, DJD Subjective Information IA CONSULT: DM PT IS A 78 YEAR OLD FEMALE FROM [facility] ADMITTED ON 01/10 D/T AGGRESSIVE BEHAVIOR. PT WAS HERE RECENTLY, DISCHARGED ON . PER MEAL/NUTRITION ACTIVITY RECORD, PT TYPICALLY ATE 100% MEALS. HT: 59 WT: 310 LB (141 KG) ABW: 186 LB (84.66 KG) BMI: 45.78 (OBESE III) GI: WNL, NON-TENDER, LARGE, ROUND BM: NOT NOTED I/O: 240/NOT NOTED SKIN: SKIN BREAKDOWN TO BUTTOCKS AREA LUIS: NOT NOTED DIET ORDER: CCHO 45GM, PUREED ESTIMATED ENERGY NEEDS: (OBESE III, ABW) 9062-7036 KCALS (20-25 KCALS/ KG) 68-85 G PRO (0.8-1.0 G/KG) 6858-2904 ML (25-30 ML/KG) PT PO INTAKE: 100% SNACK PROVIDED. Current Diet Order/ Nutrition Support CCHO 45GM, PUREED Pertinent Medications MAALOX (PRN), ALBUTEROL (PRN), LIPITOR, COREG, COLACE, GLUCAGON (PRN), LANTUS, SYNTHROID, INS-SS, COZAAR, MOM (PRN), THEREGRAN, SENNA, FLEET ENEMA (PRN), VIT B COMLPEX WITH VIT C Pertinent Labs 01/10: NA 131, GLUCOSE 363 POC GLUCOSE (LAST 24 HOURS): 257, 250 Nutritional Hx/Data Height 1.75 m Height (Calculated Centimeters) 175.3 Current Weight (lbs) 140.614 kg Weight (Calculated Kilograms) 140.6 Weight (Calculated Grams) 255882.6 [place] Body Weight 145 % [place] Body Weight 214 Body Mass Index (BMI) 45.8 Weight Status Morbidly Obese GI Symptoms GI Symptoms None Last BM NOT NOTED Skin Integrity/Comment: SKIN BREAKDOWN TO BUTTOCKS AREA LUIS: NOT NOTED Current %PO Good (75-100%) Estimated Nutritional Goals BEE in Kcals: Adj wt of IBW Calories/Kcals/Kg 20-25 Kcals Calculated 0436-5834 Protein: Adj wt of IBW Protein g/k.8-1.0 Protein Calculated 68-85 Fluid: ml 3497-3700 ML (25-30 ML/KG) Nutritional Problem 1. Problem Problem ALTERED NUTRITION RELATED LABS Etiology R/T ENDOCRINE DYSFUNCTION Signs/Symptoms: AEB HX DM AND GLUCOSE 363 Malnutrition Related to Morbid Obesity Malnutrition related to morbid obesity Weight 200% of ideal wt Query Text:(Any 1 Criteria met) Malnutrition related to morbid obesity Yes Intervention/Recommendation Comments 1. CONTINUE WITH [facility] 45GM, PUREED DIET ORDERED. 2. CONTNIUE ANTIHYPERGLYCEMIC MEDICATION FOR GLUCOSE CONTROL PER MD ORDER. Expected Outcomes/Goals Expected Outcomes/Goals 1. PO INTAKE TO MEET 75% OF NUTRITIONAL NEEDS. 2. MONITOR PO INTAKE, WT, NUTRITION RELATED LABS AND SKIN INTEGRITY. 3. F/U LOW RISK IN 7 DAYS, 01/18
[2019-01-24] MEDS: APAP/Oxycodone 5/325mg Tab PO PRN ×2 (01:53→21:51)
[2019-01-24] MEDS: INSULIN LISPRO SLIDING SCALE 100 UNITS/ML UNIT SUBQ SCH ×4 (06:53→21:00)
[2019-01-24] MEDS: Levothyroxine 0.075 Mg Tab PO SCH (06:54)
[2019-01-24] MEDS: Haldol Oral Sol.(concentrate) 10 mg/5 mL Udc PO SCH ×2 (09:11→18:04)
[2019-01-24] MEDS: Vitamin B Complex w/Vitamin C Tab PO SCH (09:12)
[2019-01-24] MEDS: Multivitamin Tab PO SCH (09:14)
[2019-01-24] MEDS: Fluticasone Propionate Nasal 1 SPR SPR NS SCH (09:14)
[2019-01-24] MEDS: NYSTATIN 100000 UNITS/GM POWD TP SCH (09:14)
[2019-01-24] MEDS: Albuterol/Ipratropium Neb 3 ML AERS HHN PRN (15:28)
--- NOTE | 2019-01-24 17:58 | Internal Medicine Prog Note ---
Internal Medicine Subjective - Subjective Service Date: 01/24/19 Patient seen and examined:: with staff (she feels well) Patient is:: awake, verbal, in bed, talking Per staff patient has:: no adverse event Internal Medicine Objective - Results Result Diagrams: 01/10/19 15:10 01/10/19 15:10 Recent Labs: Laboratory Last Values WBC 8.4 Th/cmm (4.8-10.8) 01/10/19 15:10 RBC 5.16 Mil/cmm (3.80-5.20) 01/10/19 15:10 Hgb 14.9 gm/dL (12-16) 01/10/19 15:10 Hct 44.3 % (41.0-60) 01/10/19 15:10 MCV 85.8 fl (81-100) 01/10/19 15:10 MCH 28.9 pg (27.0-31.0) 01/10/19 15:10 MCHC Differential 33.7 pg (28.0-36.0) 01/10/19 15:10 RDW 12.1 % (11.5-20.0) 01/10/19 15:10 Plt Count 291 Th/cmm (150-400) 01/10/19 15:10 MPV 7.3 fl 01/10/19 15:10 Neutrophils % 59.5 % (40.0-80.0) 01/10/19 15:10 Lymphocytes % 31.2 % (20.0-50.0) 01/10/19 15:10 Monocytes % 5.0 % (2.0-10.0) 01/10/19 15:10 Eosinophils % 4.3 % (0.0-5.0) 01/10/19 15:10 Basophils % 0.0 % (0.0-2.0) 01/10/19 15:10 Sodium 131 mEq/L (136-145) L 01/10/19 15:10 Potassium 4.2 mEq/L (3.5-5.1) 01/10/19 15:10 Chloride 96 mEq/L (98-107) L 01/10/19 15:10 Carbon Dioxide 23.9 mEq/L (21.0-31.0) 01/10/19 15:10 Anion Gap 15.3 (7.0-16.0) 01/10/19 15:10 BUN 18 mg/dL (7-25) 01/10/19 15:10 Creatinine 1.0 mg/dL (0.6-1.2) 01/10/19 15:10 Est GFR ( Amer) TNP 01/10/19 15:10 Est GFR (Non-Af Amer) TNP 01/10/19 15:10 BUN/Creatinine Ratio 18.0 01/10/19 15:10 Glucose 363 mg/dL (70-105) H 01/10/19 15:10 POC Glucose 231 MG/DL (70 - 105) H 01/16/19 16:34 Calcium 9.6 mg/dL (8.6-10.3) 01/10/19 15:10 Total Bilirubin 0.5 mg/dL (0.3-1.0) 01/10/19 15:10 AST 13 U/L (13-39) 01/10/19 15:10 ALT 14 U/L (7-52) 01/10/19 15:10 Alkaline Phosphatase 66 U/L (34-104) 01/10/19 15:10 Troponin I 0.04 ng/mL (0.01-0.05) 01/19/19 22:30 Total Protein 7.1 gm/dL (6.0-8.3) 01/10/19 15:10 Albumin 3.7 gm/dL (3.7-5.3) 01/10/19 15:10 Globulin 3.4 gm/dL 01/10/19 15:10 Albumin/Globulin Ratio 1.1 (1.0-1.8) 01/10/19 15:10 Triglycerides 417 mg/dL (<150) H 01/10/19 15:10 Cholesterol 188 mg/dL (<200) 01/10/19 15:10 LDL Cholesterol Direct 109 mg/dL (75-193) 01/10/19 15:10 HDL Cholesterol 27 mg/dL (23-92) 01/10/19 15:10 TSH 1.76 uIU/ml (0.34-5.60) 01/10/19 15:10 Urine Source CLEAN C 01/14/19 17:00 Urine Color YELLOW 01/14/19 17:00 Urine Clarity CLOUDY (CLEAR) H 01/14/19 17:00 Urine pH 6.5 (4.6 - 8.0) 01/14/19 17:00 Ur Specific [place] <= 1.005 (1.005-1.030) 01/14/19 17:00 Urine Protein NEGATIVE mg/dL (NEGATIVE) 01/14/19 17:00 Urine Glucose (UA) 100 mg/dL (NEGATIVE) H 01/14/19 17:00 Urine Ketones NEGATIVE mg/dL (NEGATIVE) 01/14/19 17:00 Urine Blood SMALL (NEGATIVE) H 01/14/19 17:00 Urine Nitrate NEGATIVE (NEGATIVE) 01/14/19 17:00 Urine Bilirubin NEGATIVE (NEGATIVE) 01/14/19 17:00 Urine Urobilinogen 0.2 E.U./dL (0.2 - 1.0) 01/14/19 17:00 Ur Leukocyte Esterase MODERATE (NEGATIVE) H 01/14/19 17:00 Urine RBC 2-5 /hpf (0-5) 01/14/19 17:00 Urine WBC 6-10 /hpf (0-5) H 01/14/19 17:00 Ur Epithelial Cells FEW /lpf (FEW) 01/14/19 17:00 Urine Bacteria MANY /hpf (NONE SEEN) H 01/14/19 17:00 RPR NONREACTIVE (NONREACTIVE) 01/10/19 15:10 - Physical Exam Vitals and I&O: Vital Signs Temp 98.5 F 01/24/19 06:11 Pulse 76 01/24/19 15:28 Resp 20 01/24/19 15:28 BP 166/90 01/24/19 09:14 Pulse Ox 98 01/24/19 15:28 Intake & Output 01/23/19 01/24/19 01/24/19 18:59 06:59 18:59 Intake Total 1000 480 Balance 1000 480 Intake: Oral 1000 480 Other: # Voids 4 3 # Bowel Movements 0 1 Stool Characteristics Soft Formed Brown Active Medications: Current Medications Acetaminophen (Tylenol Extra Strength) 500 mg PO Q4H PRN PRN Reason: Pain or Fever >101 Stop: 03/12/19 00:41 Last Admin: 01/21/19 22:32 Dose: 500 mg Al Hydrox/Mg Hydrox/Simethicone (Maalox) 30 ml PO Q4HR PRN PRN Reason: GI DISTRESS Stop: 03/11/19 19:56 Albuterol/Ipratropium (Duoneb Neb) 3 ml HHN Q4H PRN PRN Reason: Wheezing Stop: 03/12/19 00:48 Last Admin: 01/24/19 15:28 Dose: 3 ml Aripiprazole (Abilify) 30 mg PO DAILY [facility]; Protocol Stop: 03/17/19 08:59 Last Admin: 01/24/19 09:12 Dose: 30 mg Aspirin (Ecotrin) 81 mg PO DAILY [facility] Stop: 03/12/19 08:59 Last Admin: 01/24/19 09:13 Dose: 81 mg Atorvastatin Calcium (Lipitor) 20 mg PO HS [facility]; Protocol Stop: 03/12/19 20:59 Last Admin: 01/23/19 21:57 Dose: 20 mg Brimonidine Tartrate (Alphagan 0.1% Ophth Soln) 1 drop EACH EYE TID [facility] Stop: 03/12/19 08:59 Last Admin: 01/24/19 14:40 Dose: Not Given Carvedilol (Coreg) 12.5 mg PO BID [facility] Stop: 03/21/19 08:59 Last Admin: 01/24/19 16:22 Dose: Not Given Clonazepam (Klonopin) 0.5 mg PO BID [facility]; Protocol Stop: 03/22/19 08:59 Last Admin: 01/24/19 09:13 Dose: 0.5 mg Docusate Sodium (Colace) 100 mg PO BID [facility] Stop: 03/12/19 08:59 Last Admin: 01/24/19 09:12 Dose: 100 mg Duloxetine HCl (Cymbalta) 60 mg PO DAILY [facility]; Protocol Stop: 03/13/19 11:59 Last Admin: 01/24/19 09:11 Dose: 60 mg Fluticasone Propionate (Flonase) 1 spr NS DAILY [facility] Stop: 03/12/19 08:59 Last Admin: 01/24/19 09:14 Dose: 1 spr Glucagon (Glucagen) 1 mg IM PRN PRN PRN Reason: BS below 70 Stop: 03/11/19 23:24 Haloperidol Decanoate (Haldol Dec) 50 mg IM QMONTH [facility]; Protocol Stop: 03/17/19 15:59 Last Admin: 01/16/19 16:34 Dose: 50 mg Haloperidol Lactate (Haldol Concentrate 10mg/5ml Susp) 5 mg PO BID [facility]; Protocol Stop: 03/18/19 08:59 Last Admin: 01/24/19 09:11 Dose: 5 mg Hydralazine HCl (Apresoline) 10 mg PO BID [facility] Stop: 03/12/19 08:59 Last Admin: 01/24/19 16:23 Dose: Not Given Ibuprofen (Motrin) 600 mg PO Q8H PRN PRN Reason: breakthrough pain Stop: 03/12/19 00:35 Last Admin: 01/23/19 12:55 Dose: 600 mg Insulin Glargine (Lantus Insulin) 26 units SUBQ HS [facility] Stop: 03/12/19 20:59 Last Admin: 01/23/19 22:17 Dose: 26 units Insulin Human Lispro (Humalog Insulin Sliding Scale) 0 units SUBQ [facility]; Protocol Stop: 03/11/19 20:59 Last Admin: 01/24/19 11:33 Dose: Not Given Isosorbide Dinitrate (Isordil) 10 mg PO Q8HR [facility] Stop: 03/12/19 04:59 Last Admin: 01/24/19 14:40 Dose: Not Given Latanoprost (Xalatan 0.005% Oph Soln) 1 drop EACH EYE HS [facility] Stop: 03/12/19 20:59 Last Admin: 01/23/19 21:58 Dose: 1 drop Levothyroxine Sodium (Synthroid) 0.075 mg PO QDAC [facility] Stop: 03/12/19 07:29 Last Admin: 01/24/19 06:54 Dose: 0.075 mg Loratadine (Claritin) 10 mg PO DAILY [facility] Stop: 03/12/19 08:59 Last Admin: 01/24/19 09:13 Dose: 10 mg Lorazepam (Ativan) 0.5 mg PO Q4HR PRN; Protocol PRN Reason: Anxiety/Agitation Stop: 02/09/19 19:56 Last Admin: 01/14/19 23:13 Dose: 0.5 mg Losartan Potassium (Cozaar) 50 mg PO DAILY [facility] Stop: 03/12/19 08:59 Last Admin: 01/24/19 09:13 Dose: 50 mg Magnesium Hydroxide (Milk Of Magnesia) 30 ml PO HS PRN PRN Reason: Constipation Multivitamins/Vitamin C (Theragran) 1 tab PO DAILY [facility] Stop: 03/12/19 08:59 Last Admin: 01/24/19 09:14 Dose: 1 tab Naproxen (Naprosyn) 500 mg PO BIDWM [facility] Stop: 03/20/19 17:59 Last Admin: 01/24/19 09:13 Dose: 500 mg Nitroglycerin (Nitrostat) 0.4 mg SL Q5MIN PRN PRN Reason: CHEST PAIN Stop: 03/11/19 23:24 Last Admin: 01/19/19 16:46 Dose: 0.4 mg Nystatin (Nystop) 100 units TP DAILY [facility] Stop: 03/21/19 08:59 Last Admin: 01/24/19 09:14 Dose: 100 units Oxycodone/Acetaminophen (Percocet 5/325mg Oral Tab) 1 tab PO Q8H PRN PRN Reason: severe pain (7-10) Stop: 03/12/19 00:44 Last Admin: 01/24/19 01:53 Dose: 1 tab Senna (Senna) 17.2 mg PO HS [facility] Stop: 03/12/19 20:59 Last Admin: 01/23/19 21:58 Dose: 17.2 mg Sodium Phosphate (Fleet Enema) 135 ml RC DAILY PRN PRN Reason: Constipation Stop: 03/11/19 23:24 Vitamin B Complex/Vit C/Folic Acid (Vitamin B Complex W/Vitamin C) 1 tab PO DAILY [facility] Stop: 03/12/19 08:59 Last Admin: 01/24/19 09:12 Dose: 1 tab Zolpidem Tartrate (Ambien) 5 mg PO HS PRN PRN Reason: Insomnia Stop: 03/11/19 19:56 Last Admin: 01/22/19 21:50 Dose: 5 mg General: alert HEENT: NC/AT, PERRLA, EOMI, anicteric sclerae, throat clear Neck: Supple, No JVD, No thyromegaly, +2 carotid pulse wo bruit, No LAD Lungs: CTAB Cardiovascular: RRR, Normal S1, Normal S2, without murmur Abdomen: soft, non-tender, non-distended Extremities: clear Neurological: no change Internal Medicine Assmt/Plan - Assessment Assessment: 1.DM. 2.HTN. 3.HYPOTHYROIDISM. 5.PSYCHOSIS - Plan Plan: CONTINUE ON CURRENT MEDICATION AND DIET. Nutritional Asmnt/Malnutr-PDOC - Dietary Evaluation Malnutrition Findings (Please click <Entered> for more info): Nutritional Asmnt/Malnutrition Start: 01/11/19 12: 41 Text: Status: Complete Freq: Protocol: Document 01/11/19 12:41 AXEL (Rec: 01/11/19 12:45 [email or web address] [id number]) Nutritional Asmnt/Malnutrition Patient General Information Nutritional Screening Consult Diagnosis PSYCHOSIS Pertinent Medical Hx/Surgical Hx HTN, DM, HYPOTHYROIDISM, PSYCHOSIS, DJD Subjective Information IA CONSULT: DM PT IS A 78 YEAR OLD FEMALE [facility] D/T AGGRESSIVE BEHAVIOR. PT WAS HERE RECENTLY, DISCHARGED ON . PER MEAL/NUTRITION ACTIVITY RECORD, PT TYPICALLY ATE 100% MEALS. HT: 59 WT: 310 LB (141 KG) ABW: 186 LB (84.66 KG) BMI: 45.78 (OBESE III) GI: WNL, NON-TENDER, LARGE, ROUND BM: NOT NOTED I/O: 240/NOT NOTED SKIN: SKIN BREAKDOWN TO BUTTOCKS AREA LUIS: NOT NOTED DIET ORDER: CCHO 45GM, PUREED ESTIMATED ENERGY NEEDS: (OBESE III, ABW) 6291-7519 KCALS (20-25 KCALS/ KG) 68-85 G PRO (0.8-1.0 G/KG) 0348-1492 ML (25-30 ML/KG) PT PO INTAKE: 100% SNACK PROVIDED. Current Diet Order/ Nutrition Support CCHO 45GM, PUREED Pertinent Medications MAALOX (PRN), ALBUTEROL (PRN), LIPITOR, COREG, COLACE, GLUCAGON (PRN), LANTUS, SYNTHROID, INS-SS, COZAAR, MOM (PRN), THEREGRAN, SENNA, FLEET ENEMA (PRN), VIT B COMLPEX WITH VIT C Pertinent Labs 01/10: NA 131, GLUCOSE 363 POC GLUCOSE (LAST 24 HOURS): 257, 250 Nutritional Hx/Data Height 1.75 m Height (Calculated Centimeters) 175.3 Current Weight (lbs) 140.614 kg Weight (Calculated Kilograms) 140.6 Weight (Calculated Grams) 303846.6 [place] Body Weight 145 % [place] Body Weight 214 Body Mass Index (BMI) 45.8 Weight Status Morbidly Obese GI Symptoms GI Symptoms None Last BM NOT NOTED Skin Integrity/Comment: SKIN BREAKDOWN TO BUTTOCKS AREA LUIS: NOT NOTED Current %PO Good (75-100%) Estimated Nutritional Goals BEE in Kcals: Adj wt of IBW Calories/Kcals/Kg 20-25 Kcals Calculated 7946-9172 Protein: Adj wt of IBW Protein g/k.8-1.0 Protein Calculated 68-85 Fluid: ml 3681-6431 ML (25-30 ML/KG) Nutritional Problem 1. Problem Problem ALTERED NUTRITION RELATED LABS Etiology R/T ENDOCRINE DYSFUNCTION Signs/Symptoms: AEB HX DM AND GLUCOSE 363 Malnutrition Related to Morbid Obesity Malnutrition related to morbid obesity Weight 200% of ideal wt Query Text:(Any 1 Criteria met) Malnutrition related to morbid obesity Yes Intervention/Recommendation Comments 1. CONTINUE WITH [facility] 45GM, PUREED DIET ORDERED. 2. CONTNIUE ANTIHYPERGLYCEMIC MEDICATION FOR GLUCOSE CONTROL PER MD ORDER. Expected Outcomes/Goals Expected Outcomes/Goals 1. PO INTAKE TO MEET 75% OF NUTRITIONAL NEEDS. 2. MONITOR PO INTAKE, WT, NUTRITION RELATED LABS AND SKIN INTEGRITY. 3. F/U LOW RISK IN 7 DAYS, 01/18
[2019-01-24] MEDS: Insulin Glargine 100 units/ml 10ml Vial SUBQ SCH (21:00)
[2019-01-24] MEDS: Atorvastatin Calcium 10 MG TAB PO SCH (21:49)
[2019-01-25] MEDS: Levothyroxine 0.075 Mg Tab PO SCH (06:32)
[2019-01-25] MEDS: INSULIN LISPRO SLIDING SCALE 100 UNITS/ML UNIT SUBQ SCH ×4 (06:55→21:02)
[2019-01-25] MEDS: Albuterol/Ipratropium Neb 3 ML AERS HHN PRN (07:22)
[2019-01-25] MEDS: Vitamin B Complex w/Vitamin C Tab PO SCH (09:31)
[2019-01-25] MEDS: Multivitamin Tab PO SCH (09:33)
[2019-01-25] MEDS: Haldol Oral Sol.(concentrate) 10 mg/5 mL Udc PO SCH ×2 (09:34→17:20)
[2019-01-25] MEDS: NYSTATIN 100000 UNITS/GM POWD TP SCH (09:34)
[2019-01-25] MEDS: Fluticasone Propionate Nasal 1 SPR SPR NS SCH (09:34)
--- NOTE | 2019-01-25 14:49 | Internal Medicine Prog Note ---
Internal Medicine Subjective - Subjective Service Date: 01/25/19 Patient seen and examined:: without staff (SHE FEELS WELL) Patient is:: awake, verbal, in bed, talking Per staff patient has:: no adverse event Internal Medicine Objective - Results Result Diagrams: 01/10/19 15:10 01/10/19 15:10 Recent Labs: Laboratory Last Values WBC 8.4 Th/cmm (4.8-10.8) 01/10/19 15:10 RBC 5.16 Mil/cmm (3.80-5.20) 01/10/19 15:10 Hgb 14.9 gm/dL (12-16) 01/10/19 15:10 Hct 44.3 % (41.0-60) 01/10/19 15:10 MCV 85.8 fl (81-100) 01/10/19 15:10 MCH 28.9 pg (27.0-31.0) 01/10/19 15:10 MCHC Differential 33.7 pg (28.0-36.0) 01/10/19 15:10 RDW 12.1 % (11.5-20.0) 01/10/19 15:10 Plt Count 291 Th/cmm (150-400) 01/10/19 15:10 MPV 7.3 fl 01/10/19 15:10 Neutrophils % 59.5 % (40.0-80.0) 01/10/19 15:10 Lymphocytes % 31.2 % (20.0-50.0) 01/10/19 15:10 Monocytes % 5.0 % (2.0-10.0) 01/10/19 15:10 Eosinophils % 4.3 % (0.0-5.0) 01/10/19 15:10 Basophils % 0.0 % (0.0-2.0) 01/10/19 15:10 Sodium 131 mEq/L (136-145) L 01/10/19 15:10 Potassium 4.2 mEq/L (3.5-5.1) 01/10/19 15:10 Chloride 96 mEq/L (98-107) L 01/10/19 15:10 Carbon Dioxide 23.9 mEq/L (21.0-31.0) 01/10/19 15:10 Anion Gap 15.3 (7.0-16.0) 01/10/19 15:10 BUN 18 mg/dL (7-25) 01/10/19 15:10 Creatinine 1.0 mg/dL (0.6-1.2) 01/10/19 15:10 Est GFR ( Amer) TNP 01/10/19 15:10 Est GFR (Non-Af Amer) TNP 01/10/19 15:10 BUN/Creatinine Ratio 18.0 01/10/19 15:10 Glucose 363 mg/dL (70-105) H 01/10/19 15:10 POC Glucose 231 MG/DL (70 - 105) H 01/16/19 16:34 Calcium 9.6 mg/dL (8.6-10.3) 01/10/19 15:10 Total Bilirubin 0.5 mg/dL (0.3-1.0) 01/10/19 15:10 AST 13 U/L (13-39) 01/10/19 15:10 ALT 14 U/L (7-52) 01/10/19 15:10 Alkaline Phosphatase 66 U/L (34-104) 01/10/19 15:10 Troponin I 0.04 ng/mL (0.01-0.05) 01/19/19 22:30 Total Protein 7.1 gm/dL (6.0-8.3) 01/10/19 15:10 Albumin 3.7 gm/dL (3.7-5.3) 01/10/19 15:10 Globulin 3.4 gm/dL 01/10/19 15:10 Albumin/Globulin Ratio 1.1 (1.0-1.8) 01/10/19 15:10 Triglycerides 417 mg/dL (<150) H 01/10/19 15:10 Cholesterol 188 mg/dL (<200) 01/10/19 15:10 LDL Cholesterol Direct 109 mg/dL (75-193) 01/10/19 15:10 HDL Cholesterol 27 mg/dL (23-92) 01/10/19 15:10 TSH 1.76 uIU/ml (0.34-5.60) 01/10/19 15:10 Urine Source CLEAN C 01/14/19 17:00 Urine Color YELLOW 01/14/19 17:00 Urine Clarity CLOUDY (CLEAR) H 01/14/19 17:00 Urine pH 6.5 (4.6 - 8.0) 01/14/19 17:00 Ur Specific [place] <= 1.005 (1.005-1.030) 01/14/19 17:00 Urine Protein NEGATIVE mg/dL (NEGATIVE) 01/14/19 17:00 Urine Glucose (UA) 100 mg/dL (NEGATIVE) H 01/14/19 17:00 Urine Ketones NEGATIVE mg/dL (NEGATIVE) 01/14/19 17:00 Urine Blood SMALL (NEGATIVE) H 01/14/19 17:00 Urine Nitrate NEGATIVE (NEGATIVE) 01/14/19 17:00 Urine Bilirubin NEGATIVE (NEGATIVE) 01/14/19 17:00 Urine Urobilinogen 0.2 E.U./dL (0.2 - 1.0) 01/14/19 17:00 Ur Leukocyte Esterase MODERATE (NEGATIVE) H 01/14/19 17:00 Urine RBC 2-5 /hpf (0-5) 01/14/19 17:00 Urine WBC 6-10 /hpf (0-5) H 01/14/19 17:00 Ur Epithelial Cells FEW /lpf (FEW) 01/14/19 17:00 Urine Bacteria MANY /hpf (NONE SEEN) H 01/14/19 17:00 RPR NONREACTIVE (NONREACTIVE) 01/10/19 15:10 - Physical Exam Vitals and I&O: Vital Signs Temp 98.2 F 01/25/19 06:25 Pulse 60 01/25/19 09:33 Resp 20 01/25/19 07:24 BP 158/83 01/25/19 09:33 Pulse Ox 97 01/25/19 07:24 Intake & Output 01/24/19 01/25/19 01/25/19 18:59 06:59 18:59 Intake Total 1080 120 Balance 1080 120 Intake: Oral 1080 120 Other: # Voids 4 3 # Bowel Movements 2 Stool Characteristics Soft Formed Brown Active Medications: Current Medications Acetaminophen (Tylenol Extra Strength) 500 mg PO Q4H PRN PRN Reason: Pain or Fever >101 Stop: 03/12/19 00:41 Last Admin: 01/21/19 22:32 Dose: 500 mg Al Hydrox/Mg Hydrox/Simethicone (Maalox) 30 ml PO Q4HR PRN PRN Reason: GI DISTRESS Stop: 03/11/19 19:56 Albuterol/Ipratropium (Duoneb Neb) 3 ml HHN Q4H PRN PRN Reason: Wheezing Stop: 03/12/19 00:48 Last Admin: 01/25/19 07:22 Dose: 3 ml Aripiprazole (Abilify) 30 mg PO DAILY [facility]; Protocol Stop: 03/17/19 08:59 Last Admin: 01/25/19 09:31 Dose: 30 mg Aspirin (Ecotrin) 81 mg PO DAILY [facility] Stop: 03/12/19 08:59 Last Admin: 01/25/19 09:34 Dose: 81 mg Atorvastatin Calcium (Lipitor) 20 mg PO HS [facility]; Protocol Stop: 03/12/19 20:59 Last Admin: 01/24/19 21:49 Dose: 20 mg Brimonidine Tartrate (Alphagan 0.1% Oph Soln) 1 drop EACH EYE TID CAL Stop: 03/12/19 08:59 Last Admin: 01/25/19 09:34 Dose: 1 drop Carvedilol (Coreg) 12.5 mg PO BID [facility] Stop: 03/21/19 08:59 Last Admin: 01/25/19 09:32 Dose: 12.5 mg Clonazepam (Klonopin) 0.5 mg PO BID [facility]; Protocol Stop: 03/22/19 08:59 Last Admin: 01/25/19 09:33 Dose: 0.5 mg Docusate Sodium (Colace) 100 mg PO BID [facility] Stop: 03/12/19 08:59 Last Admin: 01/25/19 09:31 Dose: 100 mg Duloxetine HCl (Cymbalta) 60 mg PO DAILY [facility]; Protocol Stop: 03/13/19 11:59 Last Admin: 01/25/19 09:33 Dose: 60 mg Fluticasone Propionate (Flonase) 1 spr NS DAILY [facility] Stop: 03/12/19 08:59 Last Admin: 01/25/19 09:34 Dose: 1 spr Glucagon (Glucagen) 1 mg IM PRN PRN PRN Reason: BS below 70 Stop: 03/11/19 23:24 Haloperidol Decanoate (Haldol Dec) 50 mg IM QMONTH CAL; Protocol Stop: 03/17/19 15:59 Last Admin: 01/16/19 16:34 Dose: 50 mg Haloperidol Lactate (Haldol Concentrate 10mg/5ml Susp) 5 mg PO BID [facility]; Protocol Stop: 03/18/19 08:59 Last Admin: 01/25/19 09:34 Dose: 5 mg Hydralazine HCl (Apresoline) 10 mg PO BID [facility] Stop: 03/12/19 08:59 Last Admin: 01/25/19 09:32 Dose: 10 mg Ibuprofen (Motrin) 600 mg PO Q8H PRN PRN Reason: breakthrough pain Stop: 03/12/19 00:35 Last Admin: 01/23/19 12:55 Dose: 600 mg Insulin Glargine (Lantus Insulin) 26 units SUBQ HS [facility] Stop: 03/12/19 20:59 Last Admin: 01/24/19 21:00 Dose: 26 units Insulin Human Lispro (Humalog Insulin Sliding Scale) 0 units SUBQ [facility]; Protocol Stop: 03/11/19 20:59 Last Admin: 01/25/19 12:41 Dose: Not Given Isosorbide Dinitrate (Isordil) 10 mg PO Q8HR [facility] Stop: 03/12/19 04:59 Last Admin: 01/25/19 12:41 Dose: Not Given Latanoprost (Xalatan 0.005% Oph Soln) 1 drop EACH EYE HS [facility] Stop: 03/12/19 20:59 Last Admin: 01/24/19 21:00 Dose: Not Given Levothyroxine Sodium (Synthroid) 0.075 mg PO QDAC [facility] Stop: 03/12/19 07:29 Last Admin: 01/25/19 06:32 Dose: 0.075 mg Loratadine (Claritin) 10 mg PO DAILY [facility] Stop: 03/12/19 08:59 Last Admin: 01/25/19 09:33 Dose: 10 mg Lorazepam (Ativan) 0.5 mg PO Q4HR PRN; Protocol PRN Reason: Anxiety/Agitation Stop: 02/09/19 19:56 Last Admin: 01/24/19 21:50 Dose: 0.5 mg Losartan Potassium (Cozaar) 50 mg PO DAILY [facility] Stop: 03/12/19 08:59 Last Admin: 01/25/19 09:33 Dose: 50 mg Magnesium Hydroxide (Milk Of Magnesia) 30 ml PO HS PRN PRN Reason: Constipation Multivitamins/Vitamin C (Theragran) 1 tab PO DAILY [facility] Stop: 03/12/19 08:59 Last Admin: 01/25/19 09:33 Dose: 1 tab Naproxen (Naprosyn) 500 mg PO BIDWM CAL Stop: 03/20/19 17:59 Last Admin: 01/25/19 09:33 Dose: 500 mg Nitroglycerin (Nitrostat) 0.4 mg SL Q5MIN PRN PRN Reason: CHEST PAIN Stop: 03/11/19 23:24 Last Admin: 01/19/19 16:46 Dose: 0.4 mg Nystatin (Nystop) 100 units TP DAILY [facility] Stop: 03/21/19 08:59 Last Admin: 01/25/19 09:34 Dose: 100 units Oxycodone/Acetaminophen (Percocet 5/325mg Oral Tab) 1 tab PO Q8H PRN PRN Reason: severe pain (7-10) Stop: 03/12/19 00:44 Last Admin: 01/24/19 21:51 Dose: 1 tab Senna (Senna) 17.2 mg PO HS CAL Stop: 03/12/19 20:59 Last Admin: 01/24/19 21:50 Dose: 17.2 mg Sodium Phosphate (Fleet Enema) 135 ml RC DAILY PRN PRN Reason: Constipation Stop: 03/11/19 23:24 Vitamin B Complex/Vit C/Folic Acid (Vitamin B Complex W/Vitamin C) 1 tab PO DAILY [facility] Stop: 03/12/19 08:59 Last Admin: 01/25/19 09:31 Dose: 1 tab Zolpidem Tartrate (Ambien) 5 mg PO HS PRN PRN Reason: Insomnia Stop: 03/11/19 19:56 Last Admin: 01/22/19 21:50 Dose: 5 mg General: alert HEENT: NC/AT, PERRLA, EOMI, anicteric sclerae, throat clear Neck: Supple, No JVD, No thyromegaly, +2 carotid pulse wo bruit, No LAD Lungs: CTAB Cardiovascular: RRR, Normal S1, Normal S2, without murmur Abdomen: soft, non-tender, non-distended Extremities: clear Neurological: no change Internal Medicine Assmt/Plan - Assessment Assessment: 1.DM. 2.HTN. 3.HYPOTHYROIDISM. 5.PSYCHOSIS - Plan Plan: CONTINUE ON CURRENT MEDICATION AND DIET. Nutritional Asmnt/Malnutr-PDOC - Dietary Evaluation Malnutrition Findings (Please click <Entered> for more info): Nutritional Asmnt/Malnutrition Start: 01/11/19 12: 41 Text: Status: Complete Freq: Protocol: Document 01/11/19 12:41 AXEL (Rec: 01/11/19 12:45 [email or web address] [email or web address]) Nutritional Asmnt/Malnutrition Patient General Information Nutritional Screening Consult Diagnosis PSYCHOSIS Pertinent Medical Hx/Surgical Hx HTN, DM, HYPOTHYROIDISM, PSYCHOSIS, DJD Subjective Information IA CONSULT: DM PT IS A 78 YEAR OLD FEMALE [facility] D/T AGGRESSIVE BEHAVIOR. PT WAS HERE RECENTLY, DISCHARGED ON . PER MEAL/NUTRITION ACTIVITY RECORD, PT TYPICALLY ATE 100% MEALS. HT: 59 WT: 310 LB (141 KG) ABW: 186 LB (84.66 KG) BMI: 45.78 (OBESE III) GI: WNL, NON-TENDER, LARGE, ROUND BM: NOT NOTED I/O: 240/NOT NOTED SKIN: SKIN BREAKDOWN TO BUTTOCKS AREA LUIS: NOT NOTED DIET ORDER: CCHO 45GM, PUREED ESTIMATED ENERGY NEEDS: (OBESE III, ABW) 6901-7938 KCALS (20-25 KCALS/ KG) 68-85 G PRO (0.8-1.0 G/KG) 4390-5656 ML (25-30 ML/KG) PT PO INTAKE: 100% SNACK PROVIDED. Current Diet Order/ Nutrition Support CCHO 45GM, PUREED Pertinent Medications MAALOX (PRN), ALBUTEROL (PRN), LIPITOR, COREG, COLACE, GLUCAGON (PRN), LANTUS, SYNTHROID, INS-SS, COZAAR, MOM (PRN), THEREGRAN, SENNA, FLEET ENEMA (PRN), VIT B COMLPEX WITH VIT C Pertinent Labs 01/10: NA 131, GLUCOSE 363 POC GLUCOSE (LAST 24 HOURS): 257, 250 Nutritional Hx/Data Height 1.75 m Height (Calculated Centimeters) 175.3 Current Weight (lbs) 140.614 kg Weight (Calculated Kilograms) 140.6 Weight (Calculated Grams) 490406.6 [place] Body Weight 145 % [place] Body Weight 214 Body Mass Index (BMI) 45.8 Weight Status Morbidly Obese GI Symptoms GI Symptoms None Last BM NOT NOTED Skin Integrity/Comment: SKIN BREAKDOWN TO BUTTOCKS AREA LUIS: NOT NOTED Current %PO Good (75-100%) Estimated Nutritional Goals BEE in Kcals: Adj wt of IBW Calories/Kcals/Kg 20-25 Kcals Calculated 1189-8021 Protein: Adj wt of IBW Protein g/k.8-1.0 Protein Calculated 68-85 Fluid: ml 5275-5990 ML (25-30 ML/KG) Nutritional Problem 1. Problem Problem ALTERED NUTRITION RELATED LABS Etiology R/T ENDOCRINE DYSFUNCTION Signs/Symptoms: AEB HX DM AND GLUCOSE 363 Malnutrition Related to Morbid Obesity Malnutrition related to morbid obesity Weight 200% of ideal wt Query Text:(Any 1 Criteria met) Malnutrition related to morbid obesity Yes Intervention/Recommendation Comments 1. CONTINUE WITH [facility] 45GM, PUREED DIET ORDERED. 2. CONTNIUE ANTIHYPERGLYCEMIC MEDICATION FOR GLUCOSE CONTROL PER MD ORDER. Expected Outcomes/Goals Expected Outcomes/Goals 1. PO INTAKE TO MEET 75% OF NUTRITIONAL NEEDS. 2. MONITOR PO INTAKE, WT, NUTRITION RELATED LABS AND SKIN INTEGRITY. 3. F/U LOW RISK IN 7 DAYS, 01/18
[2019-01-25] MEDS: Atorvastatin Calcium 10 MG TAB PO SCH (22:00)
--- NOTE | 2019-01-25 22:01 | Progress Notes ---
DATE: 01/24/2019 SUBJECTIVE: Chart was reviewed and the patient interviewed. Also discussed the patient's condition with the staff and reviewed records and labs. The patient continued to be suspicious and continued to be paranoid. The patient also is still depressed and withdrawn. The patient at times is still refusing some medications, but in general trying to cooperate, but is still suspicious and paranoid. The patient also is still angry and irritable mood. Otherwise, the patient is less aggressive and not throwing objects like before. Also, slightly easier to redirect her. ASSESSMENT: The patient is still paranoid and suspicious and needs close monitoring. TREATMENT PLAN: Continue to monitor her behavior and her condition closely. Also, continue adjusting psychotropic medications. Also, gearcase assembler having difficulty placing the patient and is still looking for placement. JOB# [id number]
[2019-01-25] MEDS: APAP/Oxycodone 5/325mg Tab PO PRN (22:05)
[2019-01-25] MEDS: Insulin Glargine 100 units/ml 10ml Vial SUBQ SCH (22:07)
--- NOTE | 2019-01-25 22:17 | Progress Notes ---
DATE: 01/25/2019 SUBJECTIVE: Chart was reviewed and the patient interviewed. Also discussed the patient's condition with the staff and reviewed records and labs. The patient is still anxious and is still in irritable mood. The patient also is still easily agitated. She also is still demanding and is still feeling angry and is expressing herself in angry way. On the other hand, the patient is more compliant with taking his medications and easier to redirect her. ASSESSMENT: The patient is still psychotic, but seems to be less than before. TREATMENT PLAN: We will continue monitoring her behavior and her condition closely. Also, we will continue Haldol 5 mg twice a day and Cymbalta 60 mg and Klonopin and we will continue to follow up closely. [facility]# [id number]
[2019-01-26] MEDS: INSULIN LISPRO SLIDING SCALE 100 UNITS/ML UNIT SUBQ SCH ×3 (06:33→21:23)
[2019-01-26] MEDS: Levothyroxine 0.075 Mg Tab PO SCH (06:47)
[2019-01-26] MEDS: Vitamin B Complex w/Vitamin C Tab PO SCH (08:44)
[2019-01-26] MEDS: Haldol Oral Sol.(concentrate) 10 mg/5 mL Udc PO SCH ×2 (08:44→16:48)
[2019-01-26] MEDS: Multivitamin Tab PO SCH (08:45)
[2019-01-26] MEDS: Fluticasone Propionate Nasal 1 SPR SPR NS SCH (08:47)
[2019-01-26] MEDS: NYSTATIN 100000 UNITS/GM POWD TP SCH (08:50)
[2019-01-26] MEDS: Albuterol/Ipratropium Neb 3 ML AERS HHN PRN (14:51)
--- NOTE | 2019-01-26 20:45 | General Progress Note ---
Subjective - Review of Systems Service Date: 01/26/19 Subjective: resting comfortably no distress Objective - Results Result Diagrams: 01/10/19 15:10 01/10/19 15:10 Recent Labs: Laboratory Last Values WBC 8.4 Th/cmm (4.8-10.8) 01/10/19 15:10 RBC 5.16 Mil/cmm (3.80-5.20) 01/10/19 15:10 Hgb 14.9 gm/dL (12-16) 01/10/19 15:10 Hct 44.3 % (41.0-60) 01/10/19 15:10 MCV 85.8 fl (81-100) 01/10/19 15:10 MCH 28.9 pg (27.0-31.0) 01/10/19 15:10 MCHC Differential 33.7 pg (28.0-36.0) 01/10/19 15:10 RDW 12.1 % (11.5-20.0) 01/10/19 15:10 Plt Count 291 Th/cmm (150-400) 01/10/19 15:10 MPV 7.3 fl 01/10/19 15:10 Neutrophils % 59.5 % (40.0-80.0) 01/10/19 15:10 Lymphocytes % 31.2 % (20.0-50.0) 01/10/19 15:10 Monocytes % 5.0 % (2.0-10.0) 01/10/19 15:10 Eosinophils % 4.3 % (0.0-5.0) 01/10/19 15:10 Basophils % 0.0 % (0.0-2.0) 01/10/19 15:10 Sodium 131 mEq/L (136-145) L 01/10/19 15:10 Potassium 4.2 mEq/L (3.5-5.1) 01/10/19 15:10 Chloride 96 mEq/L (98-107) L 01/10/19 15:10 Carbon Dioxide 23.9 mEq/L (21.0-31.0) 01/10/19 15:10 Anion Gap 15.3 (7.0-16.0) 01/10/19 15:10 BUN 18 mg/dL (7-25) 01/10/19 15:10 Creatinine 1.0 mg/dL (0.6-1.2) 01/10/19 15:10 Est GFR ( Amer) TNP 01/10/19 15:10 Est GFR (Non-Af Amer) TNP 01/10/19 15:10 BUN/Creatinine Ratio 18.0 01/10/19 15:10 Glucose 363 mg/dL (70-105) H 01/10/19 15:10 POC Glucose 231 MG/DL (70 - 105) H 01/16/19 16:34 Calcium 9.6 mg/dL (8.6-10.3) 01/10/19 15:10 Total Bilirubin 0.5 mg/dL (0.3-1.0) 01/10/19 15:10 AST 13 U/L (13-39) 01/10/19 15:10 ALT 14 U/L (7-52) 01/10/19 15:10 Alkaline Phosphatase 66 U/L (34-104) 01/10/19 15:10 Troponin I 0.04 ng/mL (0.01-0.05) 01/19/19 22:30 Total Protein 7.1 gm/dL (6.0-8.3) 01/10/19 15:10 Albumin 3.7 gm/dL (3.7-5.3) 01/10/19 15:10 Globulin 3.4 gm/dL 01/10/19 15:10 Albumin/Globulin Ratio 1.1 (1.0-1.8) 01/10/19 15:10 Triglycerides 417 mg/dL (<150) H 01/10/19 15:10 Cholesterol 188 mg/dL (<200) 01/10/19 15:10 LDL Cholesterol Direct 109 mg/dL (75-193) 01/10/19 15:10 HDL Cholesterol 27 mg/dL (23-92) 01/10/19 15:10 TSH 1.76 uIU/ml (0.34-5.60) 01/10/19 15:10 Urine Source CLEAN C 01/14/19 17:00 Urine Color YELLOW 01/14/19 17:00 Urine Clarity CLOUDY (CLEAR) H 01/14/19 17:00 Urine pH 6.5 (4.6 - 8.0) 01/14/19 17:00 Ur Specific [place] <= 1.005 (1.005-1.030) 01/14/19 17:00 Urine Protein NEGATIVE mg/dL (NEGATIVE) 01/14/19 17:00 Urine Glucose (UA) 100 mg/dL (NEGATIVE) H 01/14/19 17:00 Urine Ketones NEGATIVE mg/dL (NEGATIVE) 01/14/19 17:00 Urine Blood SMALL (NEGATIVE) H 01/14/19 17:00 Urine Nitrate NEGATIVE (NEGATIVE) 01/14/19 17:00 Urine Bilirubin NEGATIVE (NEGATIVE) 01/14/19 17:00 Urine Urobilinogen 0.2 E.U./dL (0.2 - 1.0) 01/14/19 17:00 Ur Leukocyte Esterase MODERATE (NEGATIVE) H 01/14/19 17:00 Urine RBC 2-5 /hpf (0-5) 01/14/19 17:00 Urine WBC 6-10 /hpf (0-5) H 01/14/19 17:00 Ur Epithelial Cells FEW /lpf (FEW) 01/14/19 17:00 Urine Bacteria MANY /hpf (NONE SEEN) H 01/14/19 17:00 RPR NONREACTIVE (NONREACTIVE) 01/10/19 15:10 - Physical Exam Vitals and I&O: Vital Signs Temp 99.0 F 01/26/19 14:00 Pulse 80 01/26/19 16:50 Resp 18 01/26/19 19:43 BP 165/86 01/26/19 16:50 Pulse Ox 95 01/26/19 14:51 Intake & Output 01/26/19 01/26/19 01/27/19 06:59 18:59 06:59 Intake Total 120 1200 Balance 120 1200 Intake: Oral 120 1200 Other: # Voids 3 4 # Bowel Movements 0 0 Stool Characteristics Soft Soft Soft Formed Formed Formed Brown Brown Brown Active Medications: Current Medications Acetaminophen (Tylenol Extra Strength) 500 mg PO Q4H PRN PRN Reason: Pain or Fever >101 Stop: 03/12/19 00:41 Last Admin: 01/21/19 22:32 Dose: 500 mg Al Hydrox/Mg Hydrox/Simethicone (Maalox) 30 ml PO Q4HR PRN PRN Reason: GI DISTRESS Stop: 03/11/19 19:56 Albuterol/Ipratropium (Duoneb Neb) 3 ml HHN Q4H PRN PRN Reason: Wheezing Stop: 03/12/19 00:48 Last Admin: 01/26/19 14:51 Dose: 3 ml Aripiprazole (Abilify) 30 mg PO DAILY [facility]; Protocol Stop: 03/17/19 08:59 Last Admin: 01/26/19 08:45 Dose: 30 mg Aspirin (Ecotrin) 81 mg PO DAILY [facility] Stop: 03/12/19 08:59 Last Admin: 01/26/19 08:44 Dose: 81 mg Atorvastatin Calcium (Lipitor) 20 mg PO HS [facility]; Protocol Stop: 03/12/19 20:59 Last Admin: 01/25/19 22:00 Dose: 20 mg Brimonidine Tartrate (Alphagan 0.1% Oph Soln) 1 drop EACH EYE TID CAL Stop: 03/12/19 08:59 Last Admin: 01/26/19 14:00 Dose: 1 drop Carvedilol (Coreg) 12.5 mg PO BID [facility] Stop: 03/21/19 08:59 Last Admin: 01/26/19 16:49 Dose: 12.5 mg Clonazepam (Klonopin) 0.5 mg PO BID [facility]; Protocol Stop: 03/22/19 08:59 Last Admin: 01/26/19 16:48 Dose: 0.5 mg Docusate Sodium (Colace) 100 mg PO BID [facility] Stop: 03/12/19 08:59 Last Admin: 01/26/19 16:48 Dose: 100 mg Duloxetine HCl (Cymbalta) 60 mg PO DAILY [facility]; Protocol Stop: 03/13/19 11:59 Last Admin: 01/26/19 08:44 Dose: 60 mg Fluticasone Propionate (Flonase) 1 spr NS DAILY [facility] Stop: 03/12/19 08:59 Last Admin: 01/26/19 08:47 Dose: 1 spr Glucagon (Glucagen) 1 mg IM PRN PRN PRN Reason: BS below 70 Stop: 03/11/19 23:24 Haloperidol Decanoate (Haldol Dec) 50 mg IM QMONTH [facility]; Protocol Stop: 03/17/19 15:59 Last Admin: 01/16/19 16:34 Dose: 50 mg Haloperidol Lactate (Haldol Concentrate 10mg/5ml Susp) 5 mg PO BID [facility]; Protocol Stop: 03/18/19 08:59 Last Admin: 01/26/19 16:48 Dose: 5 mg Hydralazine HCl (Apresoline) 10 mg PO BID CAL Stop: 03/12/19 08:59 Last Admin: 01/26/19 16:50 Dose: 10 mg Ibuprofen (Motrin) 600 mg PO Q8H PRN PRN Reason: breakthrough pain Stop: 03/12/19 00:35 Last Admin: 01/23/19 12:55 Dose: 600 mg Insulin Glargine (Lantus Insulin) 26 units SUBQ HS CAL Stop: 03/12/19 20:59 Last Admin: 01/25/19 22:07 Dose: 26 units Insulin Human Lispro (Humalog Insulin Sliding Scale) 0 units SUBQ [facility]; Protocol Stop: 03/11/19 20:59 Last Admin: 01/26/19 11:30 Dose: Not Given Isosorbide Dinitrate (Isordil) 10 mg PO Q8HR [facility] Stop: 03/12/19 04:59 Last Admin: 01/26/19 14:22 Dose: 10 mg Latanoprost (Xalatan 0.005% [facility]) 1 drop EACH EYE HS [facility] Stop: 03/12/19 20:59 Last Admin: 01/25/19 22:06 Dose: 1 drop Levothyroxine Sodium (Synthroid) 0.075 mg PO QDAC [facility] Stop: 03/12/19 07:29 Last Admin: 01/26/19 06:47 Dose: 0.075 mg Loratadine (Claritin) 10 mg PO DAILY [facility] Stop: 03/12/19 08:59 Last Admin: 01/26/19 08:44 Dose: 10 mg Lorazepam (Ativan) 0.5 mg PO Q4HR PRN; Protocol PRN Reason: Anxiety/Agitation Stop: 02/09/19 19:56 Last Admin: 01/24/19 21:50 Dose: 0.5 mg Losartan Potassium (Cozaar) 50 mg PO DAILY [facility] Stop: 03/12/19 08:59 Last Admin: 01/26/19 08:48 Dose: Not Given Magnesium Hydroxide (Milk Of Magnesia) 30 ml PO HS PRN PRN Reason: Constipation Multivitamins/Vitamin C (Theragran) 1 tab PO DAILY [facility] Stop: 03/12/19 08:59 Last Admin: 01/26/19 08:45 Dose: 1 tab Naproxen (Naprosyn) 500 mg PO BIDWM CAL Stop: 03/20/19 17:59 Last Admin: 01/26/19 08:44 Dose: 500 mg Nitroglycerin (Nitrostat) 0.4 mg SL Q5MIN PRN PRN Reason: CHEST PAIN Stop: 03/11/19 23:24 Last Admin: 01/19/19 16:46 Dose: 0.4 mg Nystatin (Nystop) 100 units TP DAILY CAL Stop: 03/21/19 08:59 Last Admin: 01/26/19 08:50 Dose: 100 units Oxycodone/Acetaminophen (Percocet 5/325mg Oral Tab) 1 tab PO Q8H PRN PRN Reason: severe pain (7-10) Stop: 03/12/19 00:44 Last Admin: 01/25/19 22:05 Dose: 1 tab Senna (Senna) 17.2 mg PO HS CAL Stop: 03/12/19 20:59 Last Admin: 01/25/19 22:06 Dose: 17.2 mg Sodium Phosphate (Fleet Enema) 135 ml RC DAILY PRN PRN Reason: Constipation Stop: 03/11/19 23:24 Vitamin B Complex/Vit C/Folic Acid (Vitamin B Complex W/Vitamin C) 1 tab PO DAILY CAL Stop: 03/12/19 08:59 Last Admin: 01/26/19 08:44 Dose: 1 tab Zolpidem Tartrate (Ambien) 5 mg PO HS PRN PRN Reason: Insomnia Stop: 03/11/19 19:56 Last Admin: 01/22/19 21:50 Dose: 5 mg General: No acute distress HEENT: PERRLA Neck: Supple, JVD Cardiovascular: Regular rate, Normal S1, Normal S2 Lungs: Clear to auscultation Abdomen: Bowel sounds, Soft Assessment/Plan - Assessment Assessment: 1.DM. 2.HTN. 3.HYPOTHYROIDISM. 4.PSYCHOSIS - Plan Plan: continue current treatment Nutritional Asmnt/Malnutr-PDOC - Dietary Evaluation Malnutrition Findings (Please click <Entered> for more info): Nutritional Asmnt/Malnutrition Start: 01/11/19 12: 41 Text: Status: Complete Freq: Protocol: Document 01/11/19 12:41 AXEL (Rec: 01/11/19 12:45 [email or web address] [email or web address]) Nutritional Asmnt/Malnutrition Patient General Information Nutritional Screening Consult Diagnosis PSYCHOSIS Pertinent Medical Hx/Surgical Hx HTN, DM, HYPOTHYROIDISM, PSYCHOSIS, DJD Subjective Information IA CONSULT: DM PT IS A 78 YEAR OLD FEMALE [facility] AD[facility] ON [facility] D/T AGGRESSIVE BEHAVIOR. PT WAS HERE RECENTLY, DISCHARGED ON . PER MEAL/NUTRITION ACTIVITY RECORD, PT TYPICALLY ATE 100% MEALS. HT: 59 WT: 310 LB (141 KG) ABW: 186 LB (84.66 KG) BMI: 45.78 (OBESE III) GI: WNL, NON-TENDER, LARGE, ROUND BM: NOT NOTED I/O: 240/NOT NOTED SKIN: SKIN BREAKDOWN TO BUTTOCKS AREA LUIS: NOT NOTED DIET ORDER: CCHO 45GM, PUREED ESTIMATED ENERGY NEEDS: (OBESE III, ABW) 7542-8126 KCALS (20-25 KCALS/ KG) 68-85 G PRO (0.8-1.0 G/KG) 2431-6339 ML (25-30 ML/KG) PT PO INTAKE: 100% SNACK PROVIDED. Current Diet Order/ [facility], P[facility] Pertinent Medications MAALOX (PRN), ALBUTEROL (PRN), LIPITOR, COREG, COLACE, GLUCAGON (PRN), LANTUS, SYNTHROID, INS-SS, COZAAR, MOM (PRN), THEREGRAN, SENNA, FLEET ENEMA (PRN), VIT B COMLPEX WITH VIT C Pertinent Labs 01/10: NA 131, GLUCOSE 363 POC GLUCOSE (LAST 24 HOURS): 257, 250 Nutritional Hx/Data Height 1.75 m Height (Calculated Centimeters) 175.3 Current Weight (lbs) 140.614 kg Weight (Calculated Kilograms) 140.6 Weight (Calculated Grams) 836440.6 [place] Body Weight 145 % [place] Body Weight 214 Body Mass Index (BMI) 45.8 Weight Status Morbidly Obese GI Symptoms GI Symptoms None Last BM NOT NOTED Skin Integrity/Comment: SKIN BREAKDOWN TO BUTTOCKS AREA LUIS: NOT NOTED Current %PO Good (75-100%) Estimated Nutritional Goals BEE in Kcals: Adj wt of IBW Calories/Kcals/Kg 20-25 Kcals Calculated 8786-1717 Protein: Adj wt of IBW Protein g/k.8-1.0 Protein Calculated 68-85 Fluid: ml 2364-6415 ML (25-30 ML/KG) Nutritional Problem 1. Problem Problem ALTERED NUTRITION RELATED LABS Etiology R/T ENDOCRINE DYSFUNCTION Signs/Symptoms: AEB HX DM AND GLUCOSE 363 Malnutrition Related to Morbid Obesity Malnutrition related to morbid obesity Weight 200% of ideal wt Query Text:(Any 1 Criteria met) Malnutrition related to morbid obesity Yes Intervention/Recommendation Comments 1. CONTINUE WITH [facility] 45GM, PUREED DIET ORDERED. 2. CONTNIUE ANTIHYPERGLYCEMIC MEDICATION FOR GLUCOSE CONTROL PER MD ORDER. Expected Outcomes/Goals Expected Outcomes/Goals 1. PO INTAKE TO MEET 75% OF NUTRITIONAL NEEDS. 2. MONITOR PO INTAKE, WT, NUTRITION RELATED LABS AND SKIN INTEGRITY. 3. F/U LOW RISK IN 7 DAYS, 01/18
[2019-01-26] MEDS: Atorvastatin Calcium 10 MG TAB PO SCH (21:21)
[2019-01-26] MEDS: Insulin Glargine 100 units/ml 10ml Vial SUBQ SCH (21:22)
[2019-01-27] MEDS: Levothyroxine 0.075 Mg Tab PO SCH (06:37)
[2019-01-27] MEDS: INSULIN LISPRO SLIDING SCALE 100 UNITS/ML UNIT SUBQ SCH ×4 (06:38→21:00)
[2019-01-27] MEDS: Albuterol/Ipratropium Neb 3 ML AERS HHN PRN (07:28)
[2019-01-27] MEDS: Vitamin B Complex w/Vitamin C Tab PO SCH (08:59)
[2019-01-27] MEDS: Multivitamin Tab PO SCH (08:59)
[2019-01-27] MEDS: Fluticasone Propionate Nasal 1 SPR SPR NS SCH (09:03)
[2019-01-27] MEDS: NYSTATIN 100000 UNITS/GM POWD TP SCH (09:03)
[2019-01-27] MEDS: Haldol Oral Sol.(concentrate) 10 mg/5 mL Udc PO SCH ×2 (09:03→17:21)
--- NOTE | 2019-01-27 15:53 | Progress Notes ---
DATE: 01/26/2019 SUBJECTIVE: Chart reviewed and the patient interviewed. Also discussed the patient's condition with the staff and reviewed records and labs. The patient is still anxious and is still in a depressed mood. The patient also is still demanding and impulsive and wants her demands to be met immediately. She also still seems to be withdrawn and the patient is guarded. Otherwise, the patient is less ____ and less paranoid. She also is interacting slightly more. ASSESSMENT: The patient is less agitated, but is still depressed and paranoid. TREATMENT PLAN: Continue current medications and treatment. Also, continue to work on her discharge plans and placement issue. JOB# [id number]
--- NOTE | 2019-01-27 18:31 | General Progress Note ---
Subjective - Review of Systems Service Date: 01/27/19 Subjective: resting comfortably no distress Objective - Results Result Diagrams: 01/10/19 15:10 01/10/19 15:10 Recent Labs: Laboratory Last Values WBC 8.4 Th/cmm (4.8-10.8) 01/10/19 15:10 RBC 5.16 Mil/cmm (3.80-5.20) 01/10/19 15:10 Hgb 14.9 gm/dL (12-16) 01/10/19 15:10 Hct 44.3 % (41.0-60) 01/10/19 15:10 MCV 85.8 fl (81-100) 01/10/19 15:10 MCH 28.9 pg (27.0-31.0) 01/10/19 15:10 MCHC Differential 33.7 pg (28.0-36.0) 01/10/19 15:10 RDW 12.1 % (11.5-20.0) 01/10/19 15:10 Plt Count 291 Th/cmm (150-400) 01/10/19 15:10 MPV 7.3 fl 01/10/19 15:10 Neutrophils % 59.5 % (40.0-80.0) 01/10/19 15:10 Lymphocytes % 31.2 % (20.0-50.0) 01/10/19 15:10 Monocytes % 5.0 % (2.0-10.0) 01/10/19 15:10 Eosinophils % 4.3 % (0.0-5.0) 01/10/19 15:10 Basophils % 0.0 % (0.0-2.0) 01/10/19 15:10 Sodium 131 mEq/L (136-145) L 01/10/19 15:10 Potassium 4.2 mEq/L (3.5-5.1) 01/10/19 15:10 Chloride 96 mEq/L (98-107) L 01/10/19 15:10 Carbon Dioxide 23.9 mEq/L (21.0-31.0) 01/10/19 15:10 Anion Gap 15.3 (7.0-16.0) 01/10/19 15:10 BUN 18 mg/dL (7-25) 01/10/19 15:10 Creatinine 1.0 mg/dL (0.6-1.2) 01/10/19 15:10 Est GFR ( Amer) TNP 01/10/19 15:10 Est GFR (Non-Af Amer) TNP 01/10/19 15:10 BUN/Creatinine Ratio 18.0 01/10/19 15:10 Glucose 363 mg/dL (70-105) H 01/10/19 15:10 POC Glucose 231 MG/DL (70 - 105) H 01/16/19 16:34 Calcium 9.6 mg/dL (8.6-10.3) 01/10/19 15:10 Total Bilirubin 0.5 mg/dL (0.3-1.0) 01/10/19 15:10 AST 13 U/L (13-39) 01/10/19 15:10 ALT 14 U/L (7-52) 01/10/19 15:10 Alkaline Phosphatase 66 U/L (34-104) 01/10/19 15:10 Troponin I 0.04 ng/mL (0.01-0.05) 01/19/19 22:30 Total Protein 7.1 gm/dL (6.0-8.3) 01/10/19 15:10 Albumin 3.7 gm/dL (3.7-5.3) 01/10/19 15:10 Globulin 3.4 gm/dL 01/10/19 15:10 Albumin/Globulin Ratio 1.1 (1.0-1.8) 01/10/19 15:10 Triglycerides 417 mg/dL (<150) H 01/10/19 15:10 Cholesterol 188 mg/dL (<200) 01/10/19 15:10 LDL Cholesterol Direct 109 mg/dL (75-193) 01/10/19 15:10 HDL Cholesterol 27 mg/dL (23-92) 01/10/19 15:10 TSH 1.76 uIU/ml (0.34-5.60) 01/10/19 15:10 Urine Source CLEAN C 01/14/19 17:00 Urine Color YELLOW 01/14/19 17:00 Urine Clarity CLOUDY (CLEAR) H 01/14/19 17:00 Urine pH 6.5 (4.6 - 8.0) 01/14/19 17:00 Ur Specific [place] <= 1.005 (1.005-1.030) 01/14/19 17:00 Urine Protein NEGATIVE mg/dL (NEGATIVE) 01/14/19 17:00 Urine Glucose (UA) 100 mg/dL (NEGATIVE) H 01/14/19 17:00 Urine Ketones NEGATIVE mg/dL (NEGATIVE) 01/14/19 17:00 Urine Blood SMALL (NEGATIVE) H 01/14/19 17:00 Urine Nitrate NEGATIVE (NEGATIVE) 01/14/19 17:00 Urine Bilirubin NEGATIVE (NEGATIVE) 01/14/19 17:00 Urine Urobilinogen 0.2 E.U./dL (0.2 - 1.0) 01/14/19 17:00 Ur Leukocyte Esterase MODERATE (NEGATIVE) H 01/14/19 17:00 Urine RBC 2-5 /hpf (0-5) 01/14/19 17:00 Urine WBC 6-10 /hpf (0-5) H 01/14/19 17:00 Ur Epithelial Cells FEW /lpf (FEW) 01/14/19 17:00 Urine Bacteria MANY /hpf (NONE SEEN) H 01/14/19 17:00 RPR NONREACTIVE (NONREACTIVE) 01/10/19 15:10 - Physical Exam Vitals and I&O: Vital Signs Temp 98.5 F 01/27/19 15:01 Pulse 88 01/27/19 17:20 Resp 20 01/27/19 15:01 BP 152/76 01/27/19 17:20 Pulse Ox 96 01/27/19 15:01 Intake & Output 01/26/19 01/27/19 01/27/19 18:59 06:59 18:59 Intake Total 1200 1000 Balance 1200 1000 Intake: Oral 1200 1000 Other: # Voids 4 5 # Bowel Movements 0 2 Stool Characteristics Soft Soft Soft Formed Formed Formed Brown Brown Brown Active Medications: Current Medications Acetaminophen (Tylenol Extra Strength) 500 mg PO Q4H PRN PRN Reason: Pain or Fever >101 Stop: 03/12/19 00:41 Last Admin: 01/21/19 22:32 Dose: 500 mg Al Hydrox/Mg Hydrox/Simethicone (Maalox) 30 ml PO Q4HR PRN PRN Reason: GI DISTRESS Stop: 03/11/19 19:56 Albuterol/Ipratropium (Duoneb Neb) 3 ml HHN Q4H PRN PRN Reason: Wheezing Stop: 03/12/19 00:48 Last Admin: 01/27/19 07:28 Dose: 3 ml Aripiprazole (Abilify) 30 mg PO DAILY [facility]; Protocol Stop: 03/17/19 08:59 Last Admin: 01/27/19 08:59 Dose: 30 mg Aspirin (Ecotrin) 81 mg PO DAILY [facility] Stop: 03/12/19 08:59 Last Admin: 01/27/19 09:02 Dose: 81 mg Atorvastatin Calcium (Lipitor) 20 mg PO HS CAL; Protocol Stop: 03/12/19 20:59 Last Admin: 01/26/19 21:21 Dose: 20 mg Brimonidine Tartrate (Alphagan 0.1% Oph Soln) 1 drop EACH EYE TID CAL Stop: 03/12/19 08:59 Last Admin: 01/27/19 15:04 Dose: 1 drop Carvedilol (Coreg) 12.5 mg PO BID [facility] Stop: 03/21/19 08:59 Last Admin: 01/27/19 17:20 Dose: 12.5 mg Clonazepam (Klonopin) 0.5 mg PO BID [facility]; Protocol Stop: 03/22/19 08:59 Last Admin: 01/27/19 17:20 Dose: 0.5 mg Docusate Sodium (Colace) 100 mg PO BID [facility] Stop: 03/12/19 08:59 Last Admin: 01/27/19 17:20 Dose: 100 mg Duloxetine HCl (Cymbalta) 60 mg PO DAILY [facility]; Protocol Stop: 03/13/19 11:59 Last Admin: 01/27/19 09:02 Dose: 60 mg Fluticasone Propionate (Flonase) 1 spr NS DAILY CAL Stop: 03/12/19 08:59 Last Admin: 01/27/19 09:03 Dose: 1 spr Glucagon (Glucagen) 1 mg IM PRN PRN PRN Reason: BS below 70 Stop: 03/11/19 23:24 Haloperidol Decanoate (Haldol Dec) 50 mg IM QMONTH CAL; Protocol Stop: 03/17/19 15:59 Last Admin: 01/16/19 16:34 Dose: 50 mg Haloperidol Lactate (Haldol Concentrate 10mg/5ml Susp) 5 mg PO BID [facility]; Protocol Stop: 03/18/19 08:59 Last Admin: 01/27/19 17:21 Dose: 5 mg Hydralazine HCl (Apresoline) 10 mg PO BID CAL Stop: 03/12/19 08:59 Last Admin: 01/27/19 17:20 Dose: 10 mg Ibuprofen (Motrin) 600 mg PO Q8H PRN PRN Reason: breakthrough pain Stop: 03/12/19 00:35 Last Admin: 01/23/19 12:55 Dose: 600 mg Insulin Glargine (Lantus Insulin) 26 units SUBQ HS CAL Stop: 03/12/19 20:59 Last Admin: 01/26/19 21:22 Dose: 26 units Insulin Human Lispro (Humalog Insulin Sliding Scale) 0 units SUBQ [facility]; Protocol Stop: 03/11/19 20:59 Last Admin: 01/27/19 17:04 Dose: Not Given Isosorbide Dinitrate (Isordil) 10 mg PO Q8HR CAL Stop: 03/12/19 04:59 Last Admin: 01/27/19 15:05 Dose: 10 mg Latanoprost (Xalatan 0.005% Oph Sol) 1 drop EACH EYE HS [facility] Stop: 03/12/19 20:59 Last Admin: 01/26/19 21:25 Dose: Not Given Levothyroxine Sodium (Synthroid) 0.075 mg PO QDAC [facility] Stop: 03/12/19 07:29 Last Admin: 01/27/19 06:37 Dose: 0.075 mg Loratadine (Claritin) 10 mg PO DAILY CAL Stop: 03/12/19 08:59 Last Admin: 01/27/19 09:01 Dose: 10 mg Lorazepam (Ativan) 0.5 mg PO Q4HR PRN; Protocol PRN Reason: Anxiety/Agitation Stop: 02/09/19 19:56 Last Admin: 01/24/19 21:50 Dose: 0.5 mg Losartan Potassium (Cozaar) 50 mg PO DAILY CAL Stop: 03/12/19 08:59 Last Admin: 01/27/19 09:00 Dose: 50 mg Magnesium Hydroxide (Milk Of Magnesia) 30 ml PO HS PRN PRN Reason: Constipation Multivitamins/Vitamin C (Theragran) 1 tab PO DAILY [facility] Stop: 03/12/19 08:59 Last Admin: 01/27/19 08:59 Dose: 1 tab Naproxen (Naprosyn) 500 mg PO BIDWM CAL Stop: 03/20/19 17:59 Last Admin: 01/27/19 17:21 Dose: 500 mg Nitroglycerin (Nitrostat) 0.4 mg SL Q5MIN PRN PRN Reason: CHEST PAIN Stop: 03/11/19 23:24 Last Admin: 01/19/19 16:46 Dose: 0.4 mg Nystatin (Nystop) 100 units TP DAILY CAL Stop: 03/21/19 08:59 Last Admin: 01/27/19 09:03 Dose: 100 units Oxycodone/Acetaminophen (Percocet 5/325mg Oral Tab) 1 tab PO Q8H PRN PRN Reason: severe pain (7-10) Stop: 03/12/19 00:44 Last Admin: 01/25/19 22:05 Dose: 1 tab Senna (Senna) 17.2 mg PO HS CAL Stop: 03/12/19 20:59 Last Admin: 01/26/19 21:20 Dose: 17.2 mg Sodium Phosphate (Fleet Enema) 135 ml RC DAILY PRN PRN Reason: Constipation Stop: 03/11/19 23:24 Vitamin B Complex/Vit C/Folic Acid (Vitamin B Complex W/Vitamin C) 1 tab PO DAILY CAL Stop: 03/12/19 08:59 Last Admin: 01/27/19 08:59 Dose: 1 tab Zolpidem Tartrate (Ambien) 5 mg PO HS PRN PRN Reason: Insomnia Stop: 03/11/19 19:56 Last Admin: 01/22/19 21:50 Dose: 5 mg General: No acute distress HEENT: PERRLA Neck: Supple, JVD Cardiovascular: Regular rate, Normal S1, Normal S2 Lungs: Clear to auscultation Abdomen: Bowel sounds, Soft Assessment/Plan - Assessment Assessment: 1.DM. 2.HTN. 3.HYPOTHYROIDISM. 4.PSYCHOSIS - Plan Plan: continue current treatment Nutritional Asmnt/Malnutr-PDOC - Dietary Evaluation Malnutrition Findings (Please click <Entered> for more info): Nutritional Asmnt/Malnutrition Start: 01/11/19 12: 41 Text: Status: Complete Freq: Protocol: Document 01/11/19 12:41 AXEL (Rec: 01/11/19 12:45 [email or web address] [email or web address]) Nutritional Asmnt/Malnutrition Patient General Information Nutritional Screening Consult Diagnosis PSYCHOSIS Pertinent Medical Hx/Surgical Hx HTN, DM, HYPOTHYROIDISM, PSYCHOSIS, DJD Subjective Information IA CONSULT: DM PT IS A 78 YEAR OLD FEMALE [facility] D/T AGGRESSIVE BEHAVIOR. PT WAS HERE RECENTLY, DISCHARGED ON . PER MEAL/NUTRITION ACTIVITY RECORD, PT TYPICALLY ATE 100% MEALS. HT: 59 WT: 310 LB (141 KG) ABW: 186 LB (84.66 KG) BMI: 45.78 (OBESE III) GI: WNL, NON-TENDER, LARGE, ROUND BM: NOT NOTED I/O: 240/NOT NOTED SKIN: SKIN BREAKDOWN TO BUTTOCKS AREA LUIS: NOT NOTED DIET ORDER: CCHO 45GM, PUREED ESTIMATED ENERGY NEEDS: (OBESE III, ABW) 3784-9676 KCALS (20-25 KCALS/ KG) 68-85 G PRO (0.8-1.0 G/KG) 6110-2520 ML (25-30 ML/KG) PT PO INTAKE: 100% SNACK PROVIDED. Current Diet Order/ [facility], [facility] Pertinent Medications MAALOX (PRN), ALBUTEROL (PRN), LIPITOR, COREG, COLACE, GLUCAGON (PRN), LANTUS, SYNTHROID, INS-SS, COZAAR, MOM (PRN), THEREGRAN, SENNA, FLEET ENEMA (PRN), VIT B COMLPEX WITH VIT C Pertinent Labs 01/10: NA 131, GLUCOSE 363 POC GLUCOSE (LAST 24 HOURS): 257, 250 Nutritional Hx/Data Height 1.75 m Height (Calculated Centimeters) 175.3 Current Weight (lbs) 140.614 kg Weight (Calculated Kilograms) 140.6 Weight (Calculated Grams) 893160.6 [place] Body Weight 145 % [place] Body Weight 214 Body Mass Index (BMI) 45.8 Weight Status Morbidly Obese GI Symptoms GI Symptoms None Last BM NOT NOTED Skin Integrity/Comment: SKIN BREAKDOWN TO BUTTOCKS AREA LUIS: NOT NOTED Current %PO Good (75-100%) Estimated Nutritional Goals BEE in Kcals: Adj wt of IBW Calories/Kcals/Kg 20-25 Kcals Calculated 4642-8667 Protein: Adj wt of IBW Protein g/k.8-1.0 Protein Calculated 68-85 Fluid: ml 7485-5987 ML (25-30 ML/KG) Nutritional Problem 1. Problem Problem ALTERED NUTRITION RELATED LABS Etiology R/T ENDOCRINE DYSFUNCTION Signs/Symptoms: AEB HX DM AND GLUCOSE 363 Malnutrition Related to Morbid Obesity Malnutrition related to morbid obesity Weight 200% of ideal wt Query Text:(Any 1 Criteria met) Malnutrition related to morbid obesity Yes Intervention/Recommendation Comments 1. CONTINUE WITH [facility] 45GM, PUREED DIET ORDERED. 2. CONTNIUE ANTIHYPERGLYCEMIC MEDICATION FOR GLUCOSE CONTROL PER MD ORDER. Expected Outcomes/Goals Expected Outcomes/Goals 1. PO INTAKE TO MEET 75% OF NUTRITIONAL NEEDS. 2. MONITOR PO INTAKE, WT, NUTRITION RELATED LABS AND SKIN INTEGRITY. 3. F/U LOW RISK IN 7 DAYS, 01/18
--- NOTE | 2019-01-27 20:30 | Progress Notes ---
DATE: SUBJECTIVE: Chart was reviewed and the patient interviewed. Also discussed the patient's condition with the staff and reviewed records and labs. The patient is still calm and isolative and is still withdrawn. The patient also seems to be lethargic. The patient is not yelling and screaming as before and she seems to be more depressed. She is also compliant with taking her medications with no side effects of medications. ASSESSMENT: The patient is depressed and is still suspicious. TREATMENT PLAN: Continue to monitor behavior and condition closely. Also, continue adjusting psychotropic medications and work on discharge plans. JOB# [id number]
[2019-01-27] MEDS: Atorvastatin Calcium 10 MG TAB PO SCH (20:46)
[2019-01-27] MEDS: Insulin Glargine 100 units/ml 10ml Vial SUBQ SCH (20:48)
--- NOTE | 2019-01-28 07:58 | Progress Notes ---
DATE: 01/28/2019 01/28/2019 SUBJECTIVE: Chart was reviewed and the patient interviewed. Also discussed the patient's condition with the staff and reviewed records and labs. The patient is still depressed and anxious, but decreased behavioral problems. The patient also is still suspicious and paranoid, but no behavioral problems. The patient also is interacting more with peers and with others. She is less demanding. No side effects of medications. ASSESSMENT: The patient is less agitated and less paranoid. TREATMENT PLAN: Continue to monitor behavior and condition closely. Also, continue to work on discharge plans and placement issue. JOB# [id number]
[2019-01-28] MEDS: Haldol Oral Sol.(concentrate) 10 mg/5 mL Udc PO SCH ×2 (09:15→16:23)
[2019-01-28] MEDS: Multivitamin Tab PO SCH (09:16)
[2019-01-28] MEDS: Vitamin B Complex w/Vitamin C Tab PO SCH (09:17)
[2019-01-28] MEDS: Fluticasone Propionate Nasal 1 SPR SPR NS SCH (09:19)
[2019-01-28] MEDS: NYSTATIN 100000 UNITS/GM POWD TP SCH (09:20)
[2019-01-28] MEDS: INSULIN LISPRO SLIDING SCALE 100 UNITS/ML UNIT SUBQ SCH ×3 (11:27→20:26)
--- NOTE | 2019-01-28 20:14 | Internal Medicine Prog Note ---
Internal Medicine Subjective - Subjective Service Date: 01/28/19 Patient seen and examined:: with staff (SHE FEELS WELL,NO CHEST PAIN) Patient is:: awake, verbal, in bed, talking Per staff patient has:: no adverse event Internal Medicine Objective - Results Result Diagrams: 01/10/19 15:10 01/10/19 15:10 Recent Labs: Laboratory Last Values WBC 8.4 Th/cmm (4.8-10.8) 01/10/19 15:10 RBC 5.16 Mil/cmm (3.80-5.20) 01/10/19 15:10 Hgb 14.9 gm/dL (12-16) 01/10/19 15:10 Hct 44.3 % (41.0-60) 01/10/19 15:10 MCV 85.8 fl (81-100) 01/10/19 15:10 MCH 28.9 pg (27.0-31.0) 01/10/19 15:10 MCHC Differential 33.7 pg (28.0-36.0) 01/10/19 15:10 RDW 12.1 % (11.5-20.0) 01/10/19 15:10 Plt Count 291 Th/cmm (150-400) 01/10/19 15:10 MPV 7.3 fl 01/10/19 15:10 Neutrophils % 59.5 % (40.0-80.0) 01/10/19 15:10 Lymphocytes % 31.2 % (20.0-50.0) 01/10/19 15:10 Monocytes % 5.0 % (2.0-10.0) 01/10/19 15:10 Eosinophils % 4.3 % (0.0-5.0) 01/10/19 15:10 Basophils % 0.0 % (0.0-2.0) 01/10/19 15:10 Sodium 131 mEq/L (136-145) L 01/10/19 15:10 Potassium 4.2 mEq/L (3.5-5.1) 01/10/19 15:10 Chloride 96 mEq/L (98-107) L 01/10/19 15:10 Carbon Dioxide 23.9 mEq/L (21.0-31.0) 01/10/19 15:10 Anion Gap 15.3 (7.0-16.0) 01/10/19 15:10 BUN 18 mg/dL (7-25) 01/10/19 15:10 Creatinine 1.0 mg/dL (0.6-1.2) 01/10/19 15:10 Est GFR ( Amer) TNP 01/10/19 15:10 Est GFR (Non-Af Amer) TNP 01/10/19 15:10 BUN/Creatinine Ratio 18.0 01/10/19 15:10 Glucose 363 mg/dL (70-105) H 01/10/19 15:10 POC Glucose 231 MG/DL (70 - 105) H 01/16/19 16:34 Calcium 9.6 mg/dL (8.6-10.3) 01/10/19 15:10 Total Bilirubin 0.5 mg/dL (0.3-1.0) 01/10/19 15:10 AST 13 U/L (13-39) 01/10/19 15:10 ALT 14 U/L (7-52) 01/10/19 15:10 Alkaline Phosphatase 66 U/L (34-104) 01/10/19 15:10 Troponin I 0.04 ng/mL (0.01-0.05) 01/19/19 22:30 Total Protein 7.1 gm/dL (6.0-8.3) 01/10/19 15:10 Albumin 3.7 gm/dL (3.7-5.3) 01/10/19 15:10 Globulin 3.4 gm/dL 01/10/19 15:10 Albumin/Globulin Ratio 1.1 (1.0-1.8) 01/10/19 15:10 Triglycerides 417 mg/dL (<150) H 01/10/19 15:10 Cholesterol 188 mg/dL (<200) 01/10/19 15:10 LDL Cholesterol Direct 109 mg/dL (75-193) 01/10/19 15:10 HDL Cholesterol 27 mg/dL (23-92) 01/10/19 15:10 TSH 1.76 uIU/ml (0.34-5.60) 01/10/19 15:10 Urine Source CLEAN C 01/14/19 17:00 Urine Color YELLOW 01/14/19 17:00 Urine Clarity CLOUDY (CLEAR) H 01/14/19 17:00 Urine pH 6.5 (4.6 - 8.0) 01/14/19 17:00 Ur Specific [place] <= 1.005 (1.005-1.030) 01/14/19 17:00 Urine Protein NEGATIVE mg/dL (NEGATIVE) 01/14/19 17:00 Urine Glucose (UA) 100 mg/dL (NEGATIVE) H 01/14/19 17:00 Urine Ketones NEGATIVE mg/dL (NEGATIVE) 01/14/19 17:00 Urine Blood SMALL (NEGATIVE) H 01/14/19 17:00 Urine Nitrate NEGATIVE (NEGATIVE) 01/14/19 17:00 Urine Bilirubin NEGATIVE (NEGATIVE) 01/14/19 17:00 Urine Urobilinogen 0.2 E.U./dL (0.2 - 1.0) 01/14/19 17:00 Ur Leukocyte Esterase MODERATE (NEGATIVE) H 01/14/19 17:00 Urine RBC 2-5 /hpf (0-5) 01/14/19 17:00 Urine WBC 6-10 /hpf (0-5) H 01/14/19 17:00 Ur Epithelial Cells FEW /lpf (FEW) 01/14/19 17:00 Urine Bacteria MANY /hpf (NONE SEEN) H 01/14/19 17:00 RPR NONREACTIVE (NONREACTIVE) 01/10/19 15:10 - Physical Exam Vitals and I&O: Vital Signs Temp 98.4 F 01/28/19 19:44 Pulse 76 01/28/19 19:56 Resp 20 01/28/19 19:56 BP 165/93 01/28/19 19:44 Pulse Ox 95 01/28/19 19:56 Intake & Output 01/28/19 01/28/19 01/29/19 06:59 18:59 06:59 Intake Total 240 1000 120 Balance 240 1000 120 Intake: Oral 240 1000 120 Other: # Voids 3 5 3 # Bowel Movements 0 1 0 Stool Characteristics Soft Soft Soft Formed Formed Formed Brown Brown Brown Active Medications: Current Medications Acetaminophen (Tylenol Extra Strength) 500 mg PO Q4H PRN PRN Reason: Pain or Fever >101 Stop: 03/12/19 00:41 Last Admin: 01/21/19 22:32 Dose: 500 mg Al Hydrox/Mg Hydrox/Simethicone (Maalox) 30 ml PO Q4HR PRN PRN Reason: GI DISTRESS Stop: 03/11/19 19:56 Albuterol/Ipratropium (Duoneb Neb) 3 ml HHN Q4H PRN PRN Reason: Wheezing Stop: 03/12/19 00:48 Last Admin: 01/27/19 07:28 Dose: 3 ml Aripiprazole (Abilify) 30 mg PO DAILY [facility]; Protocol Stop: 03/17/19 08:59 Last Admin: 01/28/19 09:16 Dose: 30 mg Aspirin (Ecotrin) 81 mg PO DAILY [facility] Stop: 03/12/19 08:59 Last Admin: 01/28/19 09:16 Dose: 81 mg Atorvastatin Calcium (Lipitor) 20 mg PO HS [facility]; Protocol Stop: 03/12/19 20:59 Last Admin: 01/27/19 20:46 Dose: 20 mg Brimonidine Tartrate (Alphagan 0.1% Ophth Soln) 1 drop EACH EYE TID CAL Stop: 03/12/19 08:59 Last Admin: 01/28/19 13:50 Dose: 1 drop Carvedilol (Coreg) 12.5 mg PO BID [facility] Stop: 03/21/19 08:59 Last Admin: 01/28/19 16:24 Dose: 12.5 mg Clonazepam (Klonopin) 0.5 mg PO BID [facility]; Protocol Stop: 03/22/19 08:59 Last Admin: 01/28/19 16:23 Dose: 0.5 mg Docusate Sodium (Colace) 100 mg PO BID [facility] Stop: 03/12/19 08:59 Last Admin: 01/28/19 16:24 Dose: 100 mg Duloxetine HCl (Cymbalta) 60 mg PO DAILY [facility]; Protocol Stop: 03/13/19 11:59 Last Admin: 01/28/19 09:16 Dose: 60 mg Fluticasone Propionate (Flonase) 1 spr NS DAILY [facility] Stop: 03/12/19 08:59 Last Admin: 01/28/19 09:19 Dose: 1 spr Glucagon (Glucagen) 1 mg IM PRN PRN PRN Reason: BS below 70 Stop: 03/11/19 23:24 Haloperidol Decanoate (Haldol Dec) 50 mg IM QMONTH [facility]; Protocol Stop: 03/17/19 15:59 Last Admin: 01/16/19 16:34 Dose: 50 mg Haloperidol Lactate (Haldol Concentrate 10mg/5ml Susp) 5 mg PO BID [facility]; Protocol Stop: 03/18/19 08:59 Last Admin: 01/28/19 16:23 Dose: 5 mg Hydralazine HCl (Apresoline) 10 mg PO BID [facility] Stop: 03/12/19 08:59 Last Admin: 01/28/19 16:25 Dose: 10 mg Ibuprofen (Motrin) 600 mg PO Q8H PRN PRN Reason: breakthrough pain Stop: 03/12/19 00:35 Last Admin: 01/23/19 12:55 Dose: 600 mg Insulin Glargine (Lantus Insulin) 26 units SUBQ HS [facility] Stop: 03/12/19 20:59 Last Admin: 01/27/19 20:48 Dose: 26 units Insulin Human Lispro (Humalog Insulin Sliding Scale) 0 units SUBQ ACHS [facility]; Protocol Stop: 03/11/19 20:59 Last Admin: 01/28/19 16:22 Dose: Not Given Isosorbide Dinitrate (Isordil) 10 mg PO Q8HR [facility] Stop: 03/12/19 04:59 Last Admin: 01/28/19 12:45 Dose: 10 mg Latanoprost (Xalatan 0.005% Oph Soln) 1 drop EACH EYE HS [facility] Stop: 03/12/19 20:59 Last Admin: 01/27/19 20:44 Dose: 1 drop Levothyroxine Sodium (Synthroid) 0.075 mg PO QDAC [facility] Stop: 03/12/19 07:29 Last Admin: 01/27/19 06:37 Dose: 0.075 mg Loratadine (Claritin) 10 mg PO DAILY [facility] Stop: 03/12/19 08:59 Last Admin: 01/28/19 09:21 Dose: 10 mg Lorazepam (Ativan) 0.5 mg PO Q4HR PRN; Protocol PRN Reason: Anxiety/Agitation Stop: 02/09/19 19:56 Last Admin: 01/27/19 20:47 Dose: 0.5 mg Losartan Potassium (Cozaar) 50 mg PO DAILY [facility] Stop: 03/12/19 08:59 Last Admin: 01/28/19 09:17 Dose: 50 mg Magnesium Hydroxide (Milk Of Magnesia) 30 ml PO HS PRN PRN Reason: Constipation Multivitamins/Vitamin C (Theragran) 1 tab PO DAILY [facility] Stop: 03/12/19 08:59 Last Admin: 01/28/19 09:16 Dose: 1 tab Naproxen (Naprosyn) 500 mg PO BIDWM CAL Stop: 03/20/19 17:59 Last Admin: 01/28/19 17:16 Dose: 500 mg Nitroglycerin (Nitrostat) 0.4 mg SL Q5MIN PRN PRN Reason: CHEST PAIN Stop: 03/11/19 23:24 Last Admin: 01/19/19 16:46 Dose: 0.4 mg Nystatin (Nystop) 100 units TP DAILY [facility] Stop: 03/21/19 08:59 Last Admin: 01/28/19 09:20 Dose: 100 units Oxycodone/Acetaminophen (Percocet 5/325mg Oral Tab) 1 tab PO Q8H PRN PRN Reason: severe pain (7-10) Stop: 03/12/19 00:44 Last Admin: 01/25/19 22:05 Dose: 1 tab Senna (Senna) 17.2 mg PO HS [facility] Stop: 03/12/19 20:59 Last Admin: 01/27/19 20:47 Dose: 17.2 mg Sodium Phosphate (Fleet Enema) 135 ml RC DAILY PRN PRN Reason: Constipation Stop: 03/11/19 23:24 Vitamin B Complex/Vit C/Folic Acid (Vitamin B Complex W/Vitamin C) 1 tab PO DAILY [facility] Stop: 03/12/19 08:59 Last Admin: 01/28/19 09:17 Dose: 1 tab Zolpidem Tartrate (Ambien) 5 mg PO HS PRN PRN Reason: Insomnia Stop: 03/11/19 19:56 Last Admin: 01/28/19 00:29 Dose: 5 mg General: alert HEENT: NC/AT, PERRLA, EOMI, anicteric sclerae, throat clear Neck: Supple, No JVD, No thyromegaly, +2 carotid pulse wo bruit, No LAD Lungs: CTAB Cardiovascular: RRR, Normal S1, Normal S2, without murmur Abdomen: soft, non-tender, non-distended Extremities: clear Neurological: no change Internal Medicine Assmt/Plan - Assessment Assessment: 1.DM. 2.HTN. 3.HYPOTHYROIDISM. 5.PSYCHOSIS - Plan Plan: CONTINUE ON CURRENT MEDICATION AND DIET. Nutritional Asmnt/Malnutr-PDOC - Dietary Evaluation Malnutrition Findings (Please click <Entered> for more info): Nutritional Asmnt/Malnutrition Start: 01/11/19 12: 41 Text: Status: Complete Freq: Protocol: Document 01/11/19 12:41 AXEL (Rec: 01/11/19 12:45 [email or web address] [email or web address]) Nutritional Asmnt/Malnutrition Patient General Information Nutritional Screening Consult Diagnosis PSYCHOSIS Pertinent Medical Hx/Surgical Hx HTN, DM, HYPOTHYROIDISM, PSYCHOSIS, DJD Subjective Information IA CONSULT: DM PT IS A 78 YEAR OLD FEMALE [facility] AD[facility] ON [facility] D/T AGGRESSIVE BEHAVIOR. PT WAS HERE RECENTLY, DISCHARGED ON . PER MEAL/NUTRITION ACTIVITY RECORD, PT TYPICALLY ATE 100% MEALS. HT: 59 WT: 310 LB (141 KG) ABW: 186 LB (84.66 KG) BMI: 45.78 (OBESE III) GI: WNL, NON-TENDER, LARGE, ROUND BM: NOT NOTED I/O: 240/NOT NOTED SKIN: SKIN BREAKDOWN TO BUTTOCKS AREA LUIS: NOT NOTED DIET ORDER: CCHO 45GM, PUREED ESTIMATED ENERGY NEEDS: (OBESE III, ABW) 9504-9948 KCALS (20-25 KCALS/ KG) 68-85 G PRO (0.8-1.0 G/KG) 8060-9449 ML (25-30 ML/KG) PT PO INTAKE: 100% SNACK PROVIDED. Current Diet Order/ Nutrition Support CCHO 45GM, PUREED Pertinent Medications MAALOX (PRN), ALBUTEROL (PRN), LIPITOR, COREG, COLACE, GLUCAGON (PRN), LANTUS, SYNTHROID, INS-SS, COZAAR, MOM (PRN), THEREGRAN, SENNA, FLEET ENEMA (PRN), VIT B COMLPEX WITH VIT C Pertinent Labs 01/10: NA 131, GLUCOSE 363 POC GLUCOSE (LAST 24 HOURS): 257, 250 Nutritional Hx/Data Height 1.75 m Height (Calculated Centimeters) 175.3 Current Weight (lbs) 140.614 kg Weight (Calculated Kilograms) 140.6 Weight (Calculated Grams) 424213.6 [place] Body Weight 145 % [place] Body Weight 214 Body Mass Index (BMI) 45.8 Weight Status Morbidly Obese GI Symptoms GI Symptoms None Last BM NOT NOTED Skin Integrity/Comment: SKIN BREAKDOWN TO BUTTOCKS AREA LUIS: NOT NOTED Current %PO Good (75-100%) Estimated Nutritional Goals BEE in Kcals: Adj wt of IBW Calories/Kcals/Kg 20-25 Kcals Calculated 5600-5773 Protein: Adj wt of IBW Protein g/k.8-1.0 Protein Calculated 68-85 Fluid: ml 0333-5642 ML (25-30 ML/KG) Nutritional Problem 1. Problem Problem ALTERED NUTRITION RELATED LABS Etiology R/T ENDOCRINE DYSFUNCTION Signs/Symptoms: AEB HX DM AND GLUCOSE 363 Malnutrition Related to Morbid Obesity Malnutrition related to morbid obesity Weight 200% of ideal wt Query Text:(Any 1 Criteria met) Malnutrition related to morbid obesity Yes Intervention/Recommendation Comments [facility]. [facility], P[facility]ED DIET ORDERED. 2. CONTNIUE ANTIHYPERGLYCEMIC MEDICATION FOR GLUCOSE CONTROL PER MD ORDER. Expected Outcomes/Goals Expected Outcomes/Goals 1. PO INTAKE TO MEET 75% OF NUTRITIONAL NEEDS. 2. MONITOR PO INTAKE, WT, NUTRITION RELATED LABS AND SKIN INTEGRITY. 3. F/U LOW RISK IN 7 DAYS, 01/18
[2019-01-28] MEDS: Atorvastatin Calcium 10 MG TAB PO SCH (20:27)
[2019-01-28] MEDS: Insulin Glargine 100 units/ml 10ml Vial SUBQ SCH (20:27)
[2019-01-28] MEDS: APAP/Oxycodone 5/325mg Tab PO PRN (23:58)
[2019-01-29] MEDS: Levothyroxine 0.075 Mg Tab PO SCH (06:43)
[2019-01-29] MEDS: INSULIN LISPRO SLIDING SCALE 100 UNITS/ML UNIT SUBQ SCH ×4 (06:43→20:51)
[2019-01-29] MEDS: Multivitamin Tab PO SCH (08:51)
[2019-01-29] MEDS: Vitamin B Complex w/Vitamin C Tab PO SCH (08:52)
[2019-01-29] MEDS: Haldol Oral Sol.(concentrate) 10 mg/5 mL Udc PO SCH ×3 (08:55→17:50)
[2019-01-29] MEDS: NYSTATIN 100000 UNITS/GM POWD TP SCH (08:58)
[2019-01-29] MEDS: Fluticasone Propionate Nasal 1 SPR SPR NS SCH (08:58)
[2019-01-29] MEDS: Atorvastatin Calcium 10 MG TAB PO SCH (20:51)
[2019-01-29] MEDS: Insulin Glargine 100 units/ml 10ml Vial SUBQ SCH (20:55)
--- NOTE | 2019-01-29 21:02 | Internal Medicine Prog Note ---
Internal Medicine Subjective - Subjective Service Date: 01/29/19 Patient seen and examined:: without staff (SHE FEELS BETTER) Patient is:: awake, verbal, in bed, talking Per staff patient has:: no adverse event Internal Medicine Objective - Results Result Diagrams: 01/10/19 15:10 01/10/19 15:10 Recent Labs: Laboratory Last Values WBC 8.4 Th/cmm (4.8-10.8) 01/10/19 15:10 RBC 5.16 Mil/cmm (3.80-5.20) 01/10/19 15:10 Hgb 14.9 gm/dL (12-16) 01/10/19 15:10 Hct 44.3 % (41.0-60) 01/10/19 15:10 MCV 85.8 fl (81-100) 01/10/19 15:10 MCH 28.9 pg (27.0-31.0) 01/10/19 15:10 MCHC Differential 33.7 pg (28.0-36.0) 01/10/19 15:10 RDW 12.1 % (11.5-20.0) 01/10/19 15:10 Plt Count 291 Th/cmm (150-400) 01/10/19 15:10 MPV 7.3 fl 01/10/19 15:10 Neutrophils % 59.5 % (40.0-80.0) 01/10/19 15:10 Lymphocytes % 31.2 % (20.0-50.0) 01/10/19 15:10 Monocytes % 5.0 % (2.0-10.0) 01/10/19 15:10 Eosinophils % 4.3 % (0.0-5.0) 01/10/19 15:10 Basophils % 0.0 % (0.0-2.0) 01/10/19 15:10 Sodium 131 mEq/L (136-145) L 01/10/19 15:10 Potassium 4.2 mEq/L (3.5-5.1) 01/10/19 15:10 Chloride 96 mEq/L (98-107) L 01/10/19 15:10 Carbon Dioxide 23.9 mEq/L (21.0-31.0) 01/10/19 15:10 Anion Gap 15.3 (7.0-16.0) 01/10/19 15:10 BUN 18 mg/dL (7-25) 01/10/19 15:10 Creatinine 1.0 mg/dL (0.6-1.2) 01/10/19 15:10 Est GFR ( Amer) TNP 01/10/19 15:10 Est GFR (Non-Af Amer) TNP 01/10/19 15:10 BUN/Creatinine Ratio 18.0 01/10/19 15:10 Glucose 363 mg/dL (70-105) H 01/10/19 15:10 POC Glucose 231 MG/DL (70 - 105) H 01/16/19 16:34 Calcium 9.6 mg/dL (8.6-10.3) 01/10/19 15:10 Total Bilirubin 0.5 mg/dL (0.3-1.0) 01/10/19 15:10 AST 13 U/L (13-39) 01/10/19 15:10 ALT 14 U/L (7-52) 01/10/19 15:10 Alkaline Phosphatase 66 U/L (34-104) 01/10/19 15:10 Troponin I 0.04 ng/mL (0.01-0.05) 01/19/19 22:30 Total Protein 7.1 gm/dL (6.0-8.3) 01/10/19 15:10 Albumin 3.7 gm/dL (3.7-5.3) 01/10/19 15:10 Globulin 3.4 gm/dL 01/10/19 15:10 Albumin/Globulin Ratio 1.1 (1.0-1.8) 01/10/19 15:10 Triglycerides 417 mg/dL (<150) H 01/10/19 15:10 Cholesterol 188 mg/dL (<200) 01/10/19 15:10 LDL Cholesterol Direct 109 mg/dL (75-193) 01/10/19 15:10 HDL Cholesterol 27 mg/dL (23-92) 01/10/19 15:10 TSH 1.76 uIU/ml (0.34-5.60) 01/10/19 15:10 Urine Source CLEAN C 01/14/19 17:00 Urine Color YELLOW 01/14/19 17:00 Urine Clarity CLOUDY (CLEAR) H 01/14/19 17:00 Urine pH 6.5 (4.6 - 8.0) 01/14/19 17:00 Ur Specific [place] <= 1.005 (1.005-1.030) 01/14/19 17:00 Urine Protein NEGATIVE mg/dL (NEGATIVE) 01/14/19 17:00 Urine Glucose (UA) 100 mg/dL (NEGATIVE) H 01/14/19 17:00 Urine Ketones NEGATIVE mg/dL (NEGATIVE) 01/14/19 17:00 Urine Blood SMALL (NEGATIVE) H 01/14/19 17:00 Urine Nitrate NEGATIVE (NEGATIVE) 01/14/19 17:00 Urine Bilirubin NEGATIVE (NEGATIVE) 01/14/19 17:00 Urine Urobilinogen 0.2 E.U./dL (0.2 - 1.0) 01/14/19 17:00 Ur Leukocyte Esterase MODERATE (NEGATIVE) H 01/14/19 17:00 Urine RBC 2-5 /hpf (0-5) 01/14/19 17:00 Urine WBC 6-10 /hpf (0-5) H 01/14/19 17:00 Ur Epithelial Cells FEW /lpf (FEW) 01/14/19 17:00 Urine Bacteria MANY /hpf (NONE SEEN) H 01/14/19 17:00 RPR NONREACTIVE (NONREACTIVE) 01/10/19 15:10 - Physical Exam Vitals and I&O: Vital Signs Temp 98.9 F 01/29/19 14:48 Pulse 57 01/29/19 19:03 Resp 20 01/29/19 19:03 BP 150/60 01/29/19 17:51 Pulse Ox 96 01/29/19 19:03 Intake & Output 01/29/19 01/29/19 01/30/19 06:59 18:59 06:59 Intake Total 120 Balance 120 Intake: Oral 120 Other: # Voids 3 # Bowel Movements 0 Stool Characteristics Soft Soft Soft Formed Formed Formed Brown Brown Brown Active Medications: Current Medications Acetaminophen (Tylenol Extra Strength) 500 mg PO Q4H PRN PRN Reason: Pain or Fever >101 Stop: 03/12/19 00:41 Last Admin: 01/21/19 22:32 Dose: 500 mg Al Hydrox/Mg Hydrox/Simethicone (Maalox) 30 ml PO Q4HR PRN PRN Reason: GI DISTRESS Stop: 03/11/19 19:56 Albuterol/Ipratropium (Duoneb Neb) 3 ml HHN Q4H PRN PRN Reason: Wheezing Stop: 03/12/19 00:48 Last Admin: 01/27/19 07:28 Dose: 3 ml Aripiprazole (Abilify) 30 mg PO DAILY [facility]; Protocol Stop: 03/17/19 08:59 Last Admin: 01/29/19 08:50 Dose: 30 mg Aspirin (Ecotrin) 81 mg PO DAILY [facility] Stop: 03/12/19 08:59 Last Admin: 01/29/19 08:50 Dose: 81 mg Atorvastatin Calcium (Lipitor) 20 mg PO HS [facility]; Protocol Stop: 03/12/19 20:59 Last Admin: 01/29/19 20:51 Dose: 20 mg Brimonidine Tartrate (Alphagan 0.1% Oph Soln) 1 drop EACH EYE TID [facility] Stop: 03/12/19 08:59 Last Admin: 01/29/19 20:52 Dose: 1 drop Carvedilol (Coreg) 12.5 mg PO BID [facility] Stop: 03/21/19 08:59 Last Admin: 01/29/19 17:51 Dose: 12.5 mg Clonazepam (Klonopin) 0.5 mg PO BID [facility]; Protocol Stop: 03/22/19 08:59 Last Admin: 01/29/19 17:50 Dose: 0.5 mg Docusate Sodium (Colace) 100 mg PO BID [facility] Stop: 03/12/19 08:59 Last Admin: 01/29/19 17:51 Dose: 100 mg Duloxetine HCl (Cymbalta) 60 mg PO DAILY [facility]; Protocol Stop: 03/13/19 11:59 Last Admin: 01/29/19 08:54 Dose: 60 mg Fluticasone Propionate (Flonase) 1 spr NS DAILY [facility] Stop: 03/12/19 08:59 Last Admin: 01/29/19 08:58 Dose: 1 spr Glucagon (Glucagen) 1 mg IM PRN PRN PRN Reason: BS below 70 Stop: 03/11/19 23:24 Haloperidol Decanoate (Haldol Dec) 50 mg IM QMONTH [facility]; Protocol Stop: 03/17/19 15:59 Last Admin: 01/16/19 16:34 Dose: 50 mg Haloperidol Lactate (Haldol Concentrate 10mg/5ml Susp) 5 mg PO BID [facility]; Protocol Stop: 03/18/19 08:59 Last Admin: 01/29/19 17:50 Dose: 5 mg Hydralazine HCl (Apresoline) 10 mg PO BID [facility] Stop: 03/12/19 08:59 Last Admin: 01/29/19 17:50 Dose: 10 mg Ibuprofen (Motrin) 600 mg PO Q8H PRN PRN Reason: breakthrough pain Stop: 03/12/19 00:35 Last Admin: 01/23/19 12:55 Dose: 600 mg Insulin Glargine (Lantus Insulin) 26 units SUBQ HS [facility] Stop: 03/12/19 20:59 Last Admin: 01/29/19 20:55 Dose: 26 units Insulin Human Lispro (Humalog Insulin Sliding Scale) 0 units SUBQ [facility]; Protocol Stop: 03/11/19 20:59 Last Admin: 01/29/19 20:51 Dose: Not Given Isosorbide Dinitrate (Isordil) 10 mg PO Q8HR [facility] Stop: 03/12/19 04:59 Last Admin: 01/29/19 20:54 Dose: Not Given Latanoprost (Xalatan 0.005% Oph Soln) 1 drop EACH EYE HS [facility] Stop: 03/12/19 20:59 Last Admin: 01/29/19 20:54 Dose: 1 drop Levothyroxine Sodium (Synthroid) 0.075 mg PO QDAC [facility] Stop: 03/12/19 07:29 Last Admin: 01/29/19 06:43 Dose: 0.075 mg Loratadine (Claritin) 10 mg PO DAILY [facility] Stop: 03/12/19 08:59 Last Admin: 01/29/19 08:53 Dose: 10 mg Lorazepam (Ativan) 0.5 mg PO Q4HR PRN; Protocol PRN Reason: Anxiety/Agitation Stop: 02/09/19 19:56 Last Admin: 01/27/19 20:47 Dose: 0.5 mg Losartan Potassium (Cozaar) 50 mg PO DAILY [facility] Stop: 03/12/19 08:59 Last Admin: 01/29/19 08:55 Dose: 50 mg Magnesium Hydroxide (Milk Of Magnesia) 30 ml PO HS PRN PRN Reason: Constipation Multivitamins/Vitamin C (Theragran) 1 tab PO DAILY [facility] Stop: 03/12/19 08:59 Last Admin: 01/29/19 08:51 Dose: 1 tab Naproxen (Naprosyn) 500 mg PO BIDWM [facility] Stop: 03/20/19 17:59 Last Admin: 01/29/19 17:50 Dose: 500 mg Nitroglycerin (Nitrostat) 0.4 mg SL Q5MIN PRN PRN Reason: CHEST PAIN Stop: 03/11/19 23:24 Last Admin: 01/19/19 16:46 Dose: 0.4 mg Nystatin (Nystop) 100 units TP DAILY [facility] Stop: 03/21/19 08:59 Last Admin: 01/29/19 08:58 Dose: 100 units Oxycodone/Acetaminophen (Percocet 5/325mg Oral Tab) 1 tab PO Q8H PRN PRN Reason: severe pain (7-10) Stop: 03/12/19 00:44 Last Admin: 01/28/19 23:58 Dose: 1 tab Senna (Senna) 17.2 mg PO HS [facility] Stop: 03/12/19 20:59 Last Admin: 01/29/19 20:54 Dose: 17.2 mg Sodium Phosphate (Fleet Enema) 135 ml RC DAILY PRN PRN Reason: Constipation Stop: 03/11/19 23:24 Vitamin B Complex/Vit C/Folic Acid (Vitamin B Complex W/Vitamin C) 1 tab PO DAILY [facility] Stop: 03/12/19 08:59 Last Admin: 01/29/19 08:52 Dose: 1 tab Zolpidem Tartrate (Ambien) 5 mg PO HS PRN PRN Reason: Insomnia Stop: 03/11/19 19:56 Last Admin: 01/28/19 00:29 Dose: 5 mg General: alert HEENT: NC/AT, PERRLA, EOMI, anicteric sclerae, throat clear Neck: Supple, No JVD, No thyromegaly, +2 carotid pulse wo bruit, No LAD Lungs: CTAB Cardiovascular: RRR, Normal S1, Normal S2, without murmur Abdomen: soft, non-tender, non-distended Extremities: clear Neurological: no change Internal Medicine Assmt/Plan - Assessment Assessment: 1.DM. 2.HTN. 3.HYPOTHYROIDISM. 5.PSYCHOSIS - Plan Plan: CONTINUE ON CURRENT MEDICATION AND DIET. Nutritional Asmnt/Malnutr-PDOC - Dietary Evaluation Malnutrition Findings (Please click <Entered> for more info): Nutritional Asmnt/Malnutrition Start: 01/11/19 12: 41 Text: Status: Complete Freq: Protocol: Document 01/11/19 12:41 AXEL (Rec: 01/11/19 12:45 [email or web address] [email or web address]) Nutritional Asmnt/Malnutrition Patient General Information Nutritional Screening Consult Diagnosis PSYCHOSIS Pertinent Medical Hx/Surgical Hx HTN, DM, HYPOTHYROIDISM, PSYCHOSIS, DJD Subjective Information IA CONSULT: DM PT IS A 78 YEAR OLD FEMALE FROM [facility] ADMITTED ON 01/10 D/T AGGRESSIVE BEHAVIOR. PT WAS HERE RECENTLY, DISCHARGED ON . PER MEAL/NUTRITION ACTIVITY RECORD, PT TYPICALLY ATE 100% MEALS. HT: 59 WT: 310 LB (141 KG) ABW: 186 LB (84.66 KG) BMI: 45.78 (OBESE III) GI: WNL, NON-TENDER, LARGE, ROUND BM: NOT NOTED I/O: 240/NOT NOTED SKIN: SKIN BREAKDOWN TO BUTTOCKS AREA LUIS: NOT NOTED DIET ORDER: CCHO 45GM, PUREED ESTIMATED ENERGY NEEDS: (OBESE III, ABW) 3690-7549 KCALS (20-25 KCALS/ KG) 68-85 G PRO (0.8-1.0 G/KG) 6544-2395 ML (25-30 ML/KG) PT PO INTAKE: 100% SNACK PROVIDED. Current Diet Order/ Nutrition Support CCHO 45GM, PUREED Pertinent Medications MAALOX (PRN), ALBUTEROL (PRN), LIPITOR, COREG, COLACE, GLUCAGON (PRN), LANTUS, SYNTHROID, INS-SS, COZAAR, MOM (PRN), THEREGRAN, SENNA, FLEET ENEMA (PRN), VIT B COMLPEX WITH VIT C Pertinent Labs 01/10: NA 131, GLUCOSE 363 POC GLUCOSE (LAST 24 HOURS): 257, 250 Nutritional Hx/Data Height 1.75 m Height (Calculated Centimeters) 175.3 Current Weight (lbs) 140.614 kg Weight (Calculated Kilograms) 140.6 Weight (Calculated Grams) 285939.6 [place] Body Weight 145 % [place] Body Weight 214 Body Mass Index (BMI) 45.8 Weight Status Morbidly Obese GI Symptoms GI Symptoms None Last BM NOT NOTED Skin Integrity/Comment: SKIN BREAKDOWN TO BUTTOCKS AREA LUIS: NOT NOTED Current %PO Good (75-100%) Estimated Nutritional Goals BEE in Kcals: Adj wt of IBW Calories/Kcals/Kg 20-25 Kcals Calculated 8717-9081 Protein: Adj wt of IBW Protein g/k.8-1.0 Protein Calculated 68-85 Fluid: ml 5439-5529 ML (25-30 ML/KG) Nutritional Problem 1. Problem Problem ALTERED NUTRITION RELATED LABS Etiology R/T ENDOCRINE DYSFUNCTION Signs/Symptoms: AEB HX DM AND GLUCOSE 363 Malnutrition Related to Morbid Obesity Malnutrition related to morbid obesity Weight 200% of ideal wt Query Text:(Any 1 Criteria met) Malnutrition related to morbid obesity Yes Intervention/Recommendation Comments 1. CONTINUE WITH [facility] 45GM, PUREED DIET ORDERED. 2. CONTNIUE ANTIHYPERGLYCEMIC MEDICATION FOR GLUCOSE CONTROL PER MD ORDER. Expected Outcomes/Goals Expected Outcomes/Goals 1. PO INTAKE TO MEET 75% OF NUTRITIONAL NEEDS. 2. MONITOR PO INTAKE, WT, NUTRITION RELATED LABS AND SKIN INTEGRITY. 3. F/U LOW RISK IN 7 DAYS, 01/18
[2019-01-30] MEDS: INSULIN LISPRO SLIDING SCALE 100 UNITS/ML UNIT SUBQ SCH ×4 (06:38→21:05)
[2019-01-30] MEDS: Levothyroxine 0.075 Mg Tab PO SCH (06:39)
--- NOTE | 2019-01-30 08:36 | Progress Notes ---
DATE: SUBJECTIVE: Chart was reviewed and the patient interviewed. Also discussed the patient's condition with the staff and reviewed records and labs. The patient seems to be calmer and less irritable and less agitated. She is interacting more. She is less aggressive and no major behavioral problems and easier to redirect her. ASSESSMENT: The patient is calmer and less agitated. TREATMENT PLAN: Continue to monitor her behavior and her condition. Also, continue to work on discharge plans and placement issue. JOB# [id number]
[2019-01-30] MEDS: Fluticasone Propionate Nasal 1 SPR SPR NS SCH (09:11)
[2019-01-30] MEDS: Haldol Oral Sol.(concentrate) 10 mg/5 mL Udc PO SCH ×2 (09:11→17:41)
[2019-01-30] MEDS: Multivitamin Tab PO SCH (09:13)
[2019-01-30] MEDS: Vitamin B Complex w/Vitamin C Tab PO SCH (09:13)
[2019-01-30] MEDS: NYSTATIN 100000 UNITS/GM POWD TP SCH (12:04)
[2019-01-30] MEDS: Atorvastatin Calcium 10 MG TAB PO SCH (21:08)
[2019-01-30] MEDS: Insulin Glargine 100 units/ml 10ml Vial SUBQ SCH (21:15)
--- NOTE | 2019-01-30 22:33 | Internal Medicine Prog Note ---
Internal Medicine Subjective - Subjective Service Date: 01/30/19 Patient seen and examined:: without staff (SHE DENIES CHEST PAIN) Patient is:: awake, verbal, in bed, talking Per staff patient has:: no adverse event Internal Medicine Objective - Results Result Diagrams: 01/10/19 15:10 01/10/19 15:10 Recent Labs: Laboratory Last Values WBC 8.4 Th/cmm (4.8-10.8) 01/10/19 15:10 RBC 5.16 Mil/cmm (3.80-5.20) 01/10/19 15:10 Hgb 14.9 gm/dL (12-16) 01/10/19 15:10 Hct 44.3 % (41.0-60) 01/10/19 15:10 MCV 85.8 fl (81-100) 01/10/19 15:10 MCH 28.9 pg (27.0-31.0) 01/10/19 15:10 MCHC Differential 33.7 pg (28.0-36.0) 01/10/19 15:10 RDW 12.1 % (11.5-20.0) 01/10/19 15:10 Plt Count 291 Th/cmm (150-400) 01/10/19 15:10 MPV 7.3 fl 01/10/19 15:10 Neutrophils % 59.5 % (40.0-80.0) 01/10/19 15:10 Lymphocytes % 31.2 % (20.0-50.0) 01/10/19 15:10 Monocytes % 5.0 % (2.0-10.0) 01/10/19 15:10 Eosinophils % 4.3 % (0.0-5.0) 01/10/19 15:10 Basophils % 0.0 % (0.0-2.0) 01/10/19 15:10 Sodium 131 mEq/L (136-145) L 01/10/19 15:10 Potassium 4.2 mEq/L (3.5-5.1) 01/10/19 15:10 Chloride 96 mEq/L (98-107) L 01/10/19 15:10 Carbon Dioxide 23.9 mEq/L (21.0-31.0) 01/10/19 15:10 Anion Gap 15.3 (7.0-16.0) 01/10/19 15:10 BUN 18 mg/dL (7-25) 01/10/19 15:10 Creatinine 1.0 mg/dL (0.6-1.2) 01/10/19 15:10 Est GFR ( Amer) TNP 01/10/19 15:10 Est GFR (Non-Af Amer) TNP 01/10/19 15:10 BUN/Creatinine Ratio 18.0 01/10/19 15:10 Glucose 363 mg/dL (70-105) H 01/10/19 15:10 POC Glucose 231 MG/DL (70 - 105) H 01/16/19 16:34 Calcium 9.6 mg/dL (8.6-10.3) 01/10/19 15:10 Total Bilirubin 0.5 mg/dL (0.3-1.0) 01/10/19 15:10 AST 13 U/L (13-39) 01/10/19 15:10 ALT 14 U/L (7-52) 01/10/19 15:10 Alkaline Phosphatase 66 U/L (34-104) 01/10/19 15:10 Troponin I 0.04 ng/mL (0.01-0.05) 01/19/19 22:30 Total Protein 7.1 gm/dL (6.0-8.3) 01/10/19 15:10 Albumin 3.7 gm/dL (3.7-5.3) 01/10/19 15:10 Globulin 3.4 gm/dL 01/10/19 15:10 Albumin/Globulin Ratio 1.1 (1.0-1.8) 01/10/19 15:10 Triglycerides 417 mg/dL (<150) H 01/10/19 15:10 Cholesterol 188 mg/dL (<200) 01/10/19 15:10 LDL Cholesterol Direct 109 mg/dL (75-193) 01/10/19 15:10 HDL Cholesterol 27 mg/dL (23-92) 01/10/19 15:10 TSH 1.76 uIU/ml (0.34-5.60) 01/10/19 15:10 Urine Source CLEAN C 01/14/19 17:00 Urine Color YELLOW 01/14/19 17:00 Urine Clarity CLOUDY (CLEAR) H 01/14/19 17:00 Urine pH 6.5 (4.6 - 8.0) 01/14/19 17:00 Ur Specific [place] <= 1.005 (1.005-1.030) 01/14/19 17:00 Urine Protein NEGATIVE mg/dL (NEGATIVE) 01/14/19 17:00 Urine Glucose (UA) 100 mg/dL (NEGATIVE) H 01/14/19 17:00 Urine Ketones NEGATIVE mg/dL (NEGATIVE) 01/14/19 17:00 Urine Blood SMALL (NEGATIVE) H 01/14/19 17:00 Urine Nitrate NEGATIVE (NEGATIVE) 01/14/19 17:00 Urine Bilirubin NEGATIVE (NEGATIVE) 01/14/19 17:00 Urine Urobilinogen 0.2 E.U./dL (0.2 - 1.0) 01/14/19 17:00 Ur Leukocyte Esterase MODERATE (NEGATIVE) H 01/14/19 17:00 Urine RBC 2-5 /hpf (0-5) 01/14/19 17:00 Urine WBC 6-10 /hpf (0-5) H 01/14/19 17:00 Ur Epithelial Cells FEW /lpf (FEW) 01/14/19 17:00 Urine Bacteria MANY /hpf (NONE SEEN) H 01/14/19 17:00 RPR NONREACTIVE (NONREACTIVE) 01/10/19 15:10 - Physical Exam Vitals and I&O: Vital Signs Temp 98.0 F 01/30/19 20:14 Pulse 70 01/30/19 21:08 Resp 18 01/30/19 20:14 BP 156/70 01/30/19 21:08 Pulse Ox 95 01/30/19 20:14 Intake & Output 01/30/19 01/30/19 01/31/19 06:59 18:59 06:59 Intake Total 120 1300 240 Balance 120 1300 240 Intake: Oral 120 1300 240 Other: # Voids 3 5 2 # Bowel Movements 0 0 Stool Characteristics Soft Formed Formed Formed Brown Brown Brown Active Medications: Current Medications Acetaminophen (Tylenol Extra Strength) 500 mg PO Q4H PRN PRN Reason: Pain or Fever >101 Stop: 03/12/19 00:41 Last Admin: 01/21/19 22:32 Dose: 500 mg Al Hydrox/Mg Hydrox/Simethicone (Maalox) 30 ml PO Q4HR PRN PRN Reason: GI DISTRESS Stop: 03/11/19 19:56 Albuterol/Ipratropium (Duoneb Neb) 3 ml HHN Q4H PRN PRN Reason: Wheezing Stop: 03/12/19 00:48 Last Admin: 01/27/19 07:28 Dose: 3 ml Aripiprazole (Abilify) 30 mg PO DAILY CAL; Protocol Stop: 03/17/19 08:59 Last Admin: 01/30/19 09:11 Dose: 30 mg Aspirin (Ecotrin) 81 mg PO DAILY CAL Stop: 03/12/19 08:59 Last Admin: 01/30/19 09:11 Dose: 81 mg Atorvastatin Calcium (Lipitor) 20 mg PO HS CAL; Protocol Stop: 03/12/19 20:59 Last Admin: 01/30/19 21:08 Dose: 20 mg Brimonidine Tartrate (Alphagan 0.1% Oph Soln) 1 drop EACH EYE TID CAL Stop: 03/12/19 08:59 Last Admin: 01/30/19 21:07 Dose: 1 drop Carvedilol (Coreg) 12.5 mg PO BID [facility] Stop: 03/21/19 08:59 Last Admin: 01/30/19 17:41 Dose: 12.5 mg Clonazepam (Klonopin) 0.5 mg PO BID [facility]; Protocol Stop: 03/22/19 08:59 Last Admin: 01/30/19 17:41 Dose: 0.5 mg Docusate Sodium (Colace) 100 mg PO BID [facility] Stop: 03/12/19 08:59 Last Admin: 01/30/19 17:53 Dose: 100 mg Duloxetine HCl (Cymbalta) 60 mg PO DAILY CAL; Protocol Stop: 03/13/19 11:59 Last Admin: 01/30/19 09:11 Dose: 60 mg Fluticasone Propionate (Flonase) 1 spr NS DAILY CAL Stop: 03/12/19 08:59 Last Admin: 01/30/19 09:11 Dose: 1 spr Glucagon (Glucagen) 1 mg IM PRN PRN PRN Reason: BS below 70 Stop: 03/11/19 23:24 Haloperidol Decanoate (Haldol Dec) 50 mg IM QMONTH CAL; Protocol Stop: 03/17/19 15:59 Last Admin: 01/16/19 16:34 Dose: 50 mg Haloperidol Lactate (Haldol Concentrate 10mg/5ml Susp) 5 mg PO BID [facility]; Protocol Stop: 03/18/19 08:59 Last Admin: 01/30/19 17:41 Dose: 5 mg Hydralazine HCl (Apresoline) 10 mg PO BID [facility] Stop: 03/12/19 08:59 Last Admin: 01/30/19 17:42 Dose: 10 mg Ibuprofen (Motrin) 600 mg PO Q8H PRN PRN Reason: breakthrough pain Stop: 03/12/19 00:35 Last Admin: 01/23/19 12:55 Dose: 600 mg Insulin Glargine (Lantus Insulin) 26 units SUBQ HS [facility] Stop: 03/12/19 20:59 Last Admin: 01/30/19 21:15 Dose: 26 units Insulin Human Lispro (Humalog Insulin Sliding Scale) 0 units SUBQ [facility]; Protocol Stop: 03/11/19 20:59 Last Admin: 01/30/19 17:37 Dose: Not Given Isosorbide Dinitrate (Isordil) 10 mg PO Q8HR [facility] Stop: 03/12/19 04:59 Last Admin: 01/30/19 21:08 Dose: 10 mg Latanoprost (Xalatan 0.005% Oph Soln) 1 drop EACH EYE HS [facility] Stop: 03/12/19 20:59 Last Admin: 01/30/19 21:07 Dose: 1 drop Levothyroxine Sodium (Synthroid) 0.075 mg PO QDAC [facility] Stop: 03/12/19 07:29 Last Admin: 01/30/19 06:39 Dose: 0.075 mg Loratadine (Claritin) 10 mg PO DAILY [facility] Stop: 03/12/19 08:59 Last Admin: 01/30/19 09:13 Dose: 10 mg Lorazepam (Ativan) 0.5 mg PO Q4HR PRN; Protocol PRN Reason: Anxiety/Agitation Stop: 02/09/19 19:56 Last Admin: 01/27/19 20:47 Dose: 0.5 mg Losartan Potassium (Cozaar) 50 mg PO DAILY [facility] Stop: 03/12/19 08:59 Last Admin: 01/30/19 09:12 Dose: 50 mg Magnesium Hydroxide (Milk Of Magnesia) 30 ml PO HS PRN PRN Reason: Constipation Multivitamins/Vitamin C (Theragran) 1 tab PO DAILY CAL Stop: 03/12/19 08:59 Last Admin: 01/30/19 09:13 Dose: 1 tab Naproxen (Naprosyn) 500 mg PO BIDWM CAL Stop: 03/20/19 17:59 Last Admin: 01/30/19 17:42 Dose: 500 mg Nitroglycerin (Nitrostat) 0.4 mg SL Q5MIN PRN PRN Reason: CHEST PAIN Stop: 03/11/19 23:24 Last Admin: 01/19/19 16:46 Dose: 0.4 mg Nystatin (Nystop) 100 units TP DAILY [facility] Stop: 03/21/19 08:59 Last Admin: 01/30/19 12:04 Dose: Not Given Oxycodone/Acetaminophen (Percocet 5/325mg Oral Tab) 1 tab PO Q8H PRN PRN Reason: severe pain (7-10) Stop: 03/12/19 00:44 Last Admin: 01/28/19 23:58 Dose: 1 tab Senna (Senna) 17.2 mg PO HS CAL Stop: 03/12/19 20:59 Last Admin: 01/30/19 21:08 Dose: 17.2 mg Sodium Phosphate (Fleet Enema) 135 ml RC DAILY PRN PRN Reason: Constipation Stop: 03/11/19 23:24 Vitamin B Complex/Vit C/Folic Acid (Vitamin B Complex W/Vitamin C) 1 tab PO DAILY CAL Stop: 03/12/19 08:59 Last Admin: 01/30/19 09:13 Dose: 1 tab Zolpidem Tartrate (Ambien) 5 mg PO HS PRN PRN Reason: Insomnia Stop: 03/11/19 19:56 Last Admin: 01/30/19 21:10 Dose: 5 mg General: alert HEENT: NC/AT, PERRLA, EOMI, anicteric sclerae, throat clear Neck: Supple, No JVD, No thyromegaly, +2 carotid pulse wo bruit, No LAD Lungs: CTAB Cardiovascular: RRR, Normal S1, Normal S2, without murmur Abdomen: soft, non-tender, non-distended Extremities: clear Neurological: no change Internal Medicine Assmt/Plan - Assessment Assessment: 1.DM. 2.HTN. 3.HYPOTHYROIDISM. 5.PSYCHOSIS - Plan Plan: CONTINUE ON CURRENT MEDICATION AND DIET. Nutritional Asmnt/Malnutr-PDOC - Dietary Evaluation Malnutrition Findings (Please click <Entered> for more info): Nutritional Asmnt/Malnutrition Start: 01/11/19 12: 41 Text: Status: Complete Freq: Protocol: Document 01/11/19 12:41 AXEL (Rec: 01/11/19 12:45 AXEL [email or web address]) Nutritional Asmnt/Malnutrition Patient General Information Nutritional Screening Consult Diagnosis PSYCHOSIS Pertinent Medical Hx/Surgical Hx HTN, DM, HYPOTHYROIDISM, PSYCHOSIS, DJD Subjective Information IA CONSULT: DM PT IS A 78 YEAR OLD FEMALE FROM [facility] ADMITTED ON 01/10 D/T AGGRESSIVE BEHAVIOR. PT WAS HERE RECENTLY, DISCHARGED ON . PER MEAL/NUTRITION ACTIVITY RECORD, PT TYPICALLY ATE 100% MEALS. HT: 59 WT: 310 LB (141 KG) ABW: 186 LB (84.66 KG) BMI: 45.78 (OBESE III) GI: WNL, NON-TENDER, LARGE, ROUND BM: NOT NOTED I/O: 240/NOT NOTED SKIN: SKIN BREAKDOWN TO BUTTOCKS AREA LUIS: NOT NOTED DIET ORDER: CCHO 45GM, PUREED ESTIMATED ENERGY NEEDS: (OBESE III, ABW) 5559-6854 KCALS (20-25 KCALS/ KG) 68-85 G PRO (0.8-1.0 G/KG) 4150-7103 ML (25-30 ML/KG) PT PO INTAKE: 100% SNACK PROVIDED. Current Diet Order/ Nutrition Support CCHO 45GM, PUREED Pertinent Medications MAALOX (PRN), ALBUTEROL (PRN), LIPITOR, COREG, COLACE, GLUCAGON (PRN), LANTUS, SYNTHROID, INS-SS, COZAAR, MOM (PRN), THEREGRAN, SENNA, FLEET ENEMA (PRN), VIT B COMLPEX WITH VIT C Pertinent Labs 01/10: NA 131, GLUCOSE 363 POC GLUCOSE (LAST 24 HOURS): 257, 250 Nutritional Hx/Data Height 1.75 m Height (Calculated Centimeters) 175.3 Current Weight (lbs) 140.614 kg Weight (Calculated Kilograms) 140.6 Weight (Calculated Grams) 645431.6 [place] Body Weight 145 % [place] Body Weight 214 Body Mass Index (BMI) 45.8 Weight Status Morbidly Obese GI Symptoms GI Symptoms None Last BM NOT NOTED Skin Integrity/Comment: SKIN BREAKDOWN TO BUTTOCKS AREA LUIS: NOT NOTED Current %PO Good (75-100%) Estimated Nutritional Goals BEE in Kcals: Adj wt of IBW Calories/Kcals/Kg 20-25 Kcals Calculated 3689-8204 Protein: Adj wt of IBW Protein g/k.8-1.0 Protein Calculated 68-85 Fluid: ml 7689-9577 ML (25-30 ML/KG) Nutritional Problem 1. Problem Problem ALTERED NUTRITION RELATED LABS Etiology R/T ENDOCRINE DYSFUNCTION Signs/Symptoms: AEB HX DM AND GLUCOSE 363 Malnutrition Related to Morbid Obesity Malnutrition related to morbid obesity Weight 200% of ideal wt Query Text:(Any 1 Criteria met) Malnutrition related to morbid obesity Yes Intervention/Recommendation Comments [facility]. [facility], PUREED DIET ORDERED. 2. CONTNIUE ANTIHYPERGLYCEMIC MEDICATION FOR GLUCOSE CONTROL PER MD ORDER. Expected Outcomes/Goals Expected Outcomes/Goals 1. PO INTAKE TO MEET 75% OF NUTRITIONAL NEEDS. 2. MONITOR PO INTAKE, WT, NUTRITION RELATED LABS AND SKIN INTEGRITY. 3. F/U LOW RISK IN 7 DAYS, 01/18
--- NOTE | 2019-01-30 22:56 | Progress Notes ---
DATE: 01/29/2019 SUBJECTIVE: Chart reviewed and patient interviewed. Also discussed the patient's condition with the staff and reviewed records and labs. The patient is still in irritable mood and she is still anxious, but her affect is slightly brighter and the patient is more cooperative and not as irritable and not as agitated. It also is easier to redirect her. The patient also is able to follow directions. The patient denies any hallucinations or delusions. The patient seems to be depressed because again same problem that no place accepting her, but mental health case manager tried to admit her and hopefully [facility] will take her back. ASSESSMENT: The patient is depressed, but less agitated. TREATMENT PLAN: Continue to monitor behavior and condition and we will continue to monitor psychotropic medications. [facility]# [id number]
[2019-01-31] MEDS: INSULIN LISPRO SLIDING SCALE 100 UNITS/ML UNIT SUBQ SCH ×4 (06:33→21:52)
[2019-01-31] MEDS: Levothyroxine 0.075 Mg Tab PO SCH (06:36)
[2019-01-31] MEDS: Fluticasone Propionate Nasal 1 SPR SPR NS SCH (09:38)
[2019-01-31] MEDS: Haldol Oral Sol.(concentrate) 10 mg/5 mL Udc PO SCH ×2 (09:39→17:00)
[2019-01-31] MEDS: Multivitamin Tab PO SCH (09:40)
[2019-01-31] MEDS: NYSTATIN 100000 UNITS/GM POWD TP SCH (09:41)
[2019-01-31] MEDS: Vitamin B Complex w/Vitamin C Tab PO SCH (09:41)
[2019-01-31] MEDS: APAP/Oxycodone 5/325mg Tab PO PRN (12:02)
--- NOTE | 2019-01-31 17:13 | Internal Medicine Prog Note ---
Internal Medicine Subjective - Subjective Service Date: 01/31/19 Patient seen and examined:: with staff (SHE FEELS WELL) Patient is:: awake, verbal, in bed, talking Per staff patient has:: no adverse event Internal Medicine Objective - Results Result Diagrams: 01/10/19 15:10 01/10/19 15:10 Recent Labs: Laboratory Last Values WBC 8.4 Th/cmm (4.8-10.8) 01/10/19 15:10 RBC 5.16 Mil/cmm (3.80-5.20) 01/10/19 15:10 Hgb 14.9 gm/dL (12-16) 01/10/19 15:10 Hct 44.3 % (41.0-60) 01/10/19 15:10 MCV 85.8 fl (81-100) 01/10/19 15:10 MCH 28.9 pg (27.0-31.0) 01/10/19 15:10 MCHC Differential 33.7 pg (28.0-36.0) 01/10/19 15:10 RDW 12.1 % (11.5-20.0) 01/10/19 15:10 Plt Count 291 Th/cmm (150-400) 01/10/19 15:10 MPV 7.3 fl 01/10/19 15:10 Neutrophils % 59.5 % (40.0-80.0) 01/10/19 15:10 Lymphocytes % 31.2 % (20.0-50.0) 01/10/19 15:10 Monocytes % 5.0 % (2.0-10.0) 01/10/19 15:10 Eosinophils % 4.3 % (0.0-5.0) 01/10/19 15:10 Basophils % 0.0 % (0.0-2.0) 01/10/19 15:10 Sodium 131 mEq/L (136-145) L 01/10/19 15:10 Potassium 4.2 mEq/L (3.5-5.1) 01/10/19 15:10 Chloride 96 mEq/L (98-107) L 01/10/19 15:10 Carbon Dioxide 23.9 mEq/L (21.0-31.0) 01/10/19 15:10 Anion Gap 15.3 (7.0-16.0) 01/10/19 15:10 BUN 18 mg/dL (7-25) 01/10/19 15:10 Creatinine 1.0 mg/dL (0.6-1.2) 01/10/19 15:10 Est GFR ( Amer) TNP 01/10/19 15:10 Est GFR (Non-Af Amer) TNP 01/10/19 15:10 BUN/Creatinine Ratio 18.0 01/10/19 15:10 Glucose 363 mg/dL (70-105) H 01/10/19 15:10 POC Glucose 231 MG/DL (70 - 105) H 01/16/19 16:34 Calcium 9.6 mg/dL (8.6-10.3) 01/10/19 15:10 Total Bilirubin 0.5 mg/dL (0.3-1.0) 01/10/19 15:10 AST 13 U/L (13-39) 01/10/19 15:10 ALT 14 U/L (7-52) 01/10/19 15:10 Alkaline Phosphatase 66 U/L (34-104) 01/10/19 15:10 Troponin I 0.04 ng/mL (0.01-0.05) 01/19/19 22:30 Total Protein 7.1 gm/dL (6.0-8.3) 01/10/19 15:10 Albumin 3.7 gm/dL (3.7-5.3) 01/10/19 15:10 Globulin 3.4 gm/dL 01/10/19 15:10 Albumin/Globulin Ratio 1.1 (1.0-1.8) 01/10/19 15:10 Triglycerides 417 mg/dL (<150) H 01/10/19 15:10 Cholesterol 188 mg/dL (<200) 01/10/19 15:10 LDL Cholesterol Direct 109 mg/dL (75-193) 01/10/19 15:10 HDL Cholesterol 27 mg/dL (23-92) 01/10/19 15:10 TSH 1.76 uIU/ml (0.34-5.60) 01/10/19 15:10 Urine Source CLEAN C 01/14/19 17:00 Urine Color YELLOW 01/14/19 17:00 Urine Clarity CLOUDY (CLEAR) H 01/14/19 17:00 Urine pH 6.5 (4.6 - 8.0) 01/14/19 17:00 Ur Specific [place] <= 1.005 (1.005-1.030) 01/14/19 17:00 Urine Protein NEGATIVE mg/dL (NEGATIVE) 01/14/19 17:00 Urine Glucose (UA) 100 mg/dL (NEGATIVE) H 01/14/19 17:00 Urine Ketones NEGATIVE mg/dL (NEGATIVE) 01/14/19 17:00 Urine Blood SMALL (NEGATIVE) H 01/14/19 17:00 Urine Nitrate NEGATIVE (NEGATIVE) 01/14/19 17:00 Urine Bilirubin NEGATIVE (NEGATIVE) 01/14/19 17:00 Urine Urobilinogen 0.2 E.U./dL (0.2 - 1.0) 01/14/19 17:00 Ur Leukocyte Esterase MODERATE (NEGATIVE) H 01/14/19 17:00 Urine RBC 2-5 /hpf (0-5) 01/14/19 17:00 Urine WBC 6-10 /hpf (0-5) H 01/14/19 17:00 Ur Epithelial Cells FEW /lpf (FEW) 01/14/19 17:00 Urine Bacteria MANY /hpf (NONE SEEN) H 01/14/19 17:00 RPR NONREACTIVE (NONREACTIVE) 01/10/19 15:10 - Physical Exam Vitals and I&O: Vital Signs Temp 99.6 F 01/31/19 14:00 Pulse 87 01/31/19 14:00 Resp 20 01/31/19 14:00 BP 155/89 01/31/19 14:00 Pulse Ox 96 01/31/19 14:00 Intake & Output 01/30/19 01/31/19 01/31/19 18:59 06:59 18:59 Intake Total 1300 240 Balance 1300 240 Intake: Oral 1300 240 Other: # Voids 5 1 # Bowel Movements 0 0 Stool Characteristics Formed Formed Formed Brown Brown Brown Active Medications: Current Medications Acetaminophen (Tylenol Extra Strength) 500 mg PO Q4H PRN PRN Reason: Pain or Fever >101 Stop: 03/12/19 00:41 Last Admin: 01/21/19 22:32 Dose: 500 mg Al Hydrox/Mg Hydrox/Simethicone (Maalox) 30 ml PO Q4HR PRN PRN Reason: GI DISTRESS Stop: 03/11/19 19:56 Albuterol/Ipratropium (Duoneb Neb) 3 ml HHN Q4H PRN PRN Reason: Wheezing Stop: 03/12/19 00:48 Last Admin: 01/27/19 07:28 Dose: 3 ml Aripiprazole (Abilify) 30 mg PO DAILY [facility]; Protocol Stop: 03/17/19 08:59 Last Admin: 01/31/19 09:39 Dose: 30 mg Aspirin (Ecotrin) 81 mg PO DAILY [facility] Stop: 03/12/19 08:59 Last Admin: 01/31/19 09:40 Dose: 81 mg Atorvastatin Calcium (Lipitor) 20 mg PO HS [facility]; Protocol Stop: 03/12/19 20:59 Last Admin: 01/30/19 21:08 Dose: 20 mg Brimonidine Tartrate (Alphagan 0.1% Ophth Soln) 1 drop EACH EYE TID CAL Stop: 03/12/19 08:59 Last Admin: 01/31/19 14:51 Dose: 1 drop Carvedilol (Coreg) 12.5 mg PO BID [facility] Stop: 03/21/19 08:59 Last Admin: 01/31/19 09:39 Dose: 12.5 mg Clonazepam (Klonopin) 0.5 mg PO BID [facility]; Protocol Stop: 03/22/19 08:59 Last Admin: 01/31/19 09:40 Dose: 0.5 mg Docusate Sodium (Colace) 100 mg PO BID [facility] Stop: 03/12/19 08:59 Last Admin: 01/31/19 09:40 Dose: 100 mg Duloxetine HCl (Cymbalta) 60 mg PO DAILY [facility]; Protocol Stop: 03/13/19 11:59 Last Admin: 01/31/19 09:40 Dose: 60 mg Fluticasone Propionate (Flonase) 1 spr NS DAILY CAL Stop: 03/12/19 08:59 Last Admin: 01/31/19 09:38 Dose: 1 spr Glucagon (Glucagen) 1 mg IM PRN PRN PRN Reason: BS below 70 Stop: 03/11/19 23:24 Haloperidol Decanoate (Haldol Dec) 50 mg IM QMONTH CAL; Protocol Stop: 03/17/19 15:59 Last Admin: 01/16/19 16:34 Dose: 50 mg Haloperidol Lactate (Haldol Concentrate 10mg/5ml Susp) 5 mg PO BID [facility]; Protocol Stop: 03/18/19 08:59 Last Admin: 01/31/19 09:39 Dose: 5 mg Hydralazine HCl (Apresoline) 10 mg PO BID [facility] Stop: 03/12/19 08:59 Last Admin: 01/31/19 09:41 Dose: 10 mg Ibuprofen (Motrin) 600 mg PO Q8H PRN PRN Reason: breakthrough pain Stop: 03/12/19 00:35 Last Admin: 01/23/19 12:55 Dose: 600 mg Insulin Glargine (Lantus Insulin) 26 units SUBQ HS [facility] Stop: 03/12/19 20:59 Last Admin: 01/30/19 21:15 Dose: 26 units Insulin Human Lispro (Humalog Insulin Sliding Scale) 0 units SUBQ [facility]; Protocol Stop: 03/11/19 20:59 Last Admin: 01/31/19 11:45 Dose: 2 units Isosorbide Dinitrate (Isordil) 10 mg PO Q8HR [facility] Stop: 03/12/19 04:59 Last Admin: 01/31/19 12:02 Dose: 10 mg Latanoprost (Xalatan 0.005% Oph Soln) 1 drop EACH EYE HS [facility] Stop: 03/12/19 20:59 Last Admin: 01/30/19 21:07 Dose: 1 drop Levothyroxine Sodium (Synthroid) 0.075 mg PO QDAC [facility] Stop: 03/12/19 07:29 Last Admin: 01/31/19 06:36 Dose: 0.075 mg Loratadine (Claritin) 10 mg PO DAILY [facility] Stop: 03/12/19 08:59 Last Admin: 01/31/19 09:41 Dose: 10 mg Lorazepam (Ativan) 0.5 mg PO Q4HR PRN; Protocol PRN Reason: Anxiety/Agitation Stop: 02/09/19 19:56 Last Admin: 01/27/19 20:47 Dose: 0.5 mg Losartan Potassium (Cozaar) 50 mg PO DAILY [facility] Stop: 03/12/19 08:59 Last Admin: 01/31/19 09:39 Dose: 50 mg Magnesium Hydroxide (Milk Of Magnesia) 30 ml PO HS PRN PRN Reason: Constipation Multivitamins/Vitamin C (Theragran) 1 tab PO DAILY CAL Stop: 03/12/19 08:59 Last Admin: 01/31/19 09:40 Dose: 1 tab Naproxen (Naprosyn) 500 mg PO BIDWM CAL Stop: 03/20/19 17:59 Last Admin: 01/31/19 09:40 Dose: 500 mg Nitroglycerin (Nitrostat) 0.4 mg SL Q5MIN PRN PRN Reason: CHEST PAIN Stop: 03/11/19 23:24 Last Admin: 01/19/19 16:46 Dose: 0.4 mg Nystatin (Nystop) 100 units TP DAILY [facility] Stop: 03/21/19 08:59 Last Admin: 01/31/19 09:41 Dose: Not Given Oxycodone/Acetaminophen (Percocet 5/325mg Oral Tab) 1 tab PO Q8H PRN PRN Reason: severe pain (7-10) Stop: 03/12/19 00:44 Last Admin: 01/31/19 12:02 Dose: 1 tab Senna (Senna) 17.2 mg PO HS CAL Stop: 03/12/19 20:59 Last Admin: 01/30/19 21:08 Dose: 17.2 mg Sodium Phosphate (Fleet Enema) 135 ml RC DAILY PRN PRN Reason: Constipation Stop: 03/11/19 23:24 Vitamin B Complex/Vit C/Folic Acid (Vitamin B Complex W/Vitamin C) 1 tab PO DAILY CAL Stop: 03/12/19 08:59 Last Admin: 01/31/19 09:41 Dose: 1 tab Zolpidem Tartrate (Ambien) 5 mg PO HS PRN PRN Reason: Insomnia Stop: 03/11/19 19:56 Last Admin: 01/30/19 21:10 Dose: 5 mg General: alert HEENT: NC/AT, PERRLA, EOMI, anicteric sclerae, throat clear Neck: Supple, No JVD, No thyromegaly, +2 carotid pulse wo bruit, No LAD Lungs: CTAB Cardiovascular: RRR, Normal S1, Normal S2, without murmur Abdomen: soft, non-tender, non-distended Extremities: clear Neurological: no change Internal Medicine Assmt/Plan - Assessment Assessment: 1.DM. 2.HTN. 3.HYPOTHYROIDISM. 5.PSYCHOSIS - Plan Plan: CONTINUE ON CURRENT MEDICATION AND DIET. Nutritional Asmnt/Malnutr-PDOC - Dietary Evaluation Malnutrition Findings (Please click <Entered> for more info): Nutritional Asmnt/Malnutrition Start: 01/11/19 12: 41 Text: Status: Complete Freq: Protocol: Document 01/11/19 12:41 AXEL (Rec: 01/11/19 12:45 [email or web address] [email or web address]) Nutritional Asmnt/Malnutrition Patient General Information Nutritional Screening Consult Diagnosis PSYCHOSIS Pertinent Medical Hx/Surgical Hx HTN, DM, HYPOTHYROIDISM, PSYCHOSIS, DJD Subjective Information IA CONSULT: DM PT IS A 78 YEAR OLD FEMALE [facility] D/T AGGRESSIVE BEHAVIOR. PT WAS HERE RECENTLY, DISCHARGED ON . PER MEAL/NUTRITION ACTIVITY RECORD, PT TYPICALLY ATE 100% MEALS. HT: 59 WT: 310 LB (141 KG) ABW: 186 LB (84.66 KG) BMI: 45.78 (OBESE III) GI: WNL, NON-TENDER, LARGE, ROUND BM: NOT NOTED I/O: 240/NOT NOTED SKIN: SKIN BREAKDOWN TO BUTTOCKS AREA LUIS: NOT NOTED DIET ORDER: CCHO 45GM, PUREED ESTIMATED ENERGY NEEDS: (OBESE III, ABW) 0896-1121 KCALS (20-25 KCALS/ KG) 68-85 G PRO (0.8-1.0 G/KG) 4348-8261 ML (25-30 ML/KG) PT PO INTAKE: 100% SNACK PROVIDED. Current Diet Order/ Nutrition Support CCHO 45GM, PUREED Pertinent Medications MAALOX (PRN), ALBUTEROL (PRN), LIPITOR, COREG, COLACE, GLUCAGON (PRN), LANTUS, SYNTHROID, INS-SS, COZAAR, MOM (PRN), THEREGRAN, SENNA, FLEET ENEMA (PRN), VIT B COMLPEX WITH VIT C Pertinent Labs 01/10: NA 131, GLUCOSE 363 POC GLUCOSE (LAST 24 HOURS): 257, 250 Nutritional Hx/Data Height 1.75 m Height (Calculated Centimeters) 175.3 Current Weight (lbs) 140.614 kg Weight (Calculated Kilograms) 140.6 Weight (Calculated Grams) 535302.6 [place] Body Weight 145 % [place] Body Weight 214 Body Mass Index (BMI) 45.8 Weight Status Morbidly Obese GI Symptoms GI Symptoms None Last BM NOT NOTED Skin Integrity/Comment: SKIN BREAKDOWN TO BUTTOCKS AREA LUIS: NOT NOTED Current %PO Good (75-100%) Estimated Nutritional Goals BEE in Kcals: Adj wt of IBW Calories/Kcals/Kg 20-25 Kcals Calculated 2549-5691 Protein: Adj wt of IBW Protein g/k.8-1.0 Protein Calculated 68-85 Fluid: ml 0572-5395 ML (25-30 ML/KG) Nutritional Problem 1. Problem Problem ALTERED NUTRITION RELATED LABS Etiology R/T ENDOCRINE DYSFUNCTION Signs/Symptoms: AEB HX DM AND GLUCOSE 363 Malnutrition Related to Morbid Obesity Malnutrition related to morbid obesity Weight 200% of ideal wt Query Text:(Any 1 Criteria met) Malnutrition related to morbid obesity Yes Intervention/Recommendation Comments 1. CONTINUE WITH [facility] 45GM, PUREED DIET ORDERED. 2. CONTNIUE ANTIHYPERGLYCEMIC MEDICATION FOR GLUCOSE CONTROL PER MD ORDER. Expected Outcomes/Goals Expected Outcomes/Goals 1. PO INTAKE TO MEET 75% OF NUTRITIONAL NEEDS. 2. MONITOR PO INTAKE, WT, NUTRITION RELATED LABS AND SKIN INTEGRITY. 3. F/U LOW RISK IN 7 DAYS, 01/18
[2019-01-31] MEDS: Atorvastatin Calcium 10 MG TAB PO SCH (21:19)
[2019-01-31] MEDS: Insulin Glargine 100 units/ml 10ml Vial SUBQ SCH (21:53)
--- NOTE | 2019-01-31 22:57 | Progress Notes ---
DATE: 01/31/2019 PSYCHIATRIC PROGRESS NOTE SUBJECTIVE: Chart was reviewed and the patient interviewed. Also discussed the patient's condition with the staff and reviewed records and labs. The patient is calm and she is cooperative. The patient is guarded and she is interacting minimally with others. She also has a decrease in her behavioral problems. She is also compliant with taking her medications with no side effects of medications. ASSESSMENT: The patient is less agitated and less irritable. TREATMENT PLAN: Continue to monitor behavior and condition closely. Also, I discussed with [facility] where the patient came from, placement of the patient there, but they are not accepting her. At the same time, we will continue to work on placement issue as well as adjusting psychotropic medications and followup. [facility]# [id number]
[2019-02-01] MEDS: Levothyroxine 0.075 Mg Tab PO SCH (06:28)
[2019-02-01] MEDS: INSULIN LISPRO SLIDING SCALE 100 UNITS/ML UNIT SUBQ SCH ×5 (06:29→23:36)
[2019-02-01] MEDS: NYSTATIN 100000 UNITS/GM POWD TP SCH (09:50)
[2019-02-01] MEDS: Fluticasone Propionate Nasal 1 SPR SPR NS SCH (09:50)
[2019-02-01] MEDS: Multivitamin Tab PO SCH (09:51)
[2019-02-01] MEDS: Vitamin B Complex w/Vitamin C Tab PO SCH (09:52)
[2019-02-01] MEDS: Haldol Oral Sol.(concentrate) 10 mg/5 mL Udc PO SCH ×2 (09:53→17:04)
--- NOTE | 2019-02-01 21:21 | Internal Medicine Prog Note ---
Internal Medicine Subjective - Subjective Service Date: 02/01/19 Patient seen and examined:: without staff (SHE FEELS WELL) Patient is:: awake, verbal, in bed, talking Per staff patient has:: no adverse event Internal Medicine Objective - Results Result Diagrams: 01/10/19 15:10 01/10/19 15:10 Recent Labs: Laboratory Last Values WBC 8.4 Th/cmm (4.8-10.8) 01/10/19 15:10 RBC 5.16 Mil/cmm (3.80-5.20) 01/10/19 15:10 Hgb 14.9 gm/dL (12-16) 01/10/19 15:10 Hct 44.3 % (41.0-60) 01/10/19 15:10 MCV 85.8 fl (81-100) 01/10/19 15:10 MCH 28.9 pg (27.0-31.0) 01/10/19 15:10 MCHC Differential 33.7 pg (28.0-36.0) 01/10/19 15:10 RDW 12.1 % (11.5-20.0) 01/10/19 15:10 Plt Count 291 Th/cmm (150-400) 01/10/19 15:10 MPV 7.3 fl 01/10/19 15:10 Neutrophils % 59.5 % (40.0-80.0) 01/10/19 15:10 Lymphocytes % 31.2 % (20.0-50.0) 01/10/19 15:10 Monocytes % 5.0 % (2.0-10.0) 01/10/19 15:10 Eosinophils % 4.3 % (0.0-5.0) 01/10/19 15:10 Basophils % 0.0 % (0.0-2.0) 01/10/19 15:10 Sodium 131 mEq/L (136-145) L 01/10/19 15:10 Potassium 4.2 mEq/L (3.5-5.1) 01/10/19 15:10 Chloride 96 mEq/L (98-107) L 01/10/19 15:10 Carbon Dioxide 23.9 mEq/L (21.0-31.0) 01/10/19 15:10 Anion Gap 15.3 (7.0-16.0) 01/10/19 15:10 BUN 18 mg/dL (7-25) 01/10/19 15:10 Creatinine 1.0 mg/dL (0.6-1.2) 01/10/19 15:10 Est GFR ( Amer) TNP 01/10/19 15:10 Est GFR (Non-Af Amer) TNP 01/10/19 15:10 BUN/Creatinine Ratio 18.0 01/10/19 15:10 Glucose 363 mg/dL (70-105) H 01/10/19 15:10 POC Glucose 231 MG/DL (70 - 105) H 01/16/19 16:34 Calcium 9.6 mg/dL (8.6-10.3) 01/10/19 15:10 Total Bilirubin 0.5 mg/dL (0.3-1.0) 01/10/19 15:10 AST 13 U/L (13-39) 01/10/19 15:10 ALT 14 U/L (7-52) 01/10/19 15:10 Alkaline Phosphatase 66 U/L (34-104) 01/10/19 15:10 Troponin I 0.04 ng/mL (0.01-0.05) 01/19/19 22:30 Total Protein 7.1 gm/dL (6.0-8.3) 01/10/19 15:10 Albumin 3.7 gm/dL (3.7-5.3) 01/10/19 15:10 Globulin 3.4 gm/dL 01/10/19 15:10 Albumin/Globulin Ratio 1.1 (1.0-1.8) 01/10/19 15:10 Triglycerides 417 mg/dL (<150) H 01/10/19 15:10 Cholesterol 188 mg/dL (<200) 01/10/19 15:10 LDL Cholesterol Direct 109 mg/dL (75-193) 01/10/19 15:10 HDL Cholesterol 27 mg/dL (23-92) 01/10/19 15:10 TSH 1.76 uIU/ml (0.34-5.60) 01/10/19 15:10 Urine Source CLEAN C 01/14/19 17:00 Urine Color YELLOW 01/14/19 17:00 Urine Clarity CLOUDY (CLEAR) H 01/14/19 17:00 Urine pH 6.5 (4.6 - 8.0) 01/14/19 17:00 Ur Specific Wyatt <= 1.005 (1.005-1.030) 01/14/19 17:00 Urine Protein NEGATIVE mg/dL (NEGATIVE) 01/14/19 17:00 Urine Glucose (UA) 100 mg/dL (NEGATIVE) H 01/14/19 17:00 Urine Ketones NEGATIVE mg/dL (NEGATIVE) 01/14/19 17:00 Urine Blood SMALL (NEGATIVE) H 01/14/19 17:00 Urine Nitrate NEGATIVE (NEGATIVE) 01/14/19 17:00 Urine Bilirubin NEGATIVE (NEGATIVE) 01/14/19 17:00 Urine Urobilinogen 0.2 E.U./dL (0.2 - 1.0) 01/14/19 17:00 Ur Leukocyte Esterase MODERATE (NEGATIVE) H 01/14/19 17:00 Urine RBC 2-5 /hpf (0-5) 01/14/19 17:00 Urine WBC 6-10 /hpf (0-5) H 01/14/19 17:00 Ur Epithelial Cells FEW /lpf (FEW) 01/14/19 17:00 Urine Bacteria MANY /hpf (NONE SEEN) H 01/14/19 17:00 RPR NONREACTIVE (NONREACTIVE) 01/10/19 15:10 - Physical Exam Vitals and I&O: Vital Signs Temp 99 F 02/01/19 20:00 Pulse 80 02/01/19 20:12 Resp 20 02/01/19 20:12 BP 124/61 02/01/19 17:05 Pulse Ox 95 02/01/19 20:12 Intake & Output 02/01/19 02/01/19 02/02/19 06:59 18:59 06:59 Intake Total 360 1200 Balance 360 1200 Intake: Oral 360 1200 Other: # Voids 2 4 # Bowel Movements 2 1 Stool Characteristics Formed Brown Active Medications: Current Medications Acetaminophen (Tylenol Extra Strength) 500 mg PO Q4H PRN PRN Reason: Pain or Fever >101 Stop: 03/12/19 00:41 Last Admin: 01/21/19 22:32 Dose: 500 mg Al Hydrox/Mg Hydrox/Simethicone (Maalox) 30 ml PO Q4HR PRN PRN Reason: GI DISTRESS Stop: 03/11/19 19:56 Albuterol/Ipratropium (Duoneb Neb) 3 ml HHN Q4H PRN PRN Reason: Wheezing Stop: 03/12/19 00:48 Last Admin: 01/27/19 07:28 Dose: 3 ml Aripiprazole (Abilify) 30 mg PO DAILY [facility]; Protocol Stop: 03/17/19 08:59 Last Admin: 02/01/19 09:55 Dose: 30 mg Aspirin (Ecotrin) 81 mg PO DAILY [facility] Stop: 03/12/19 08:59 Last Admin: 02/01/19 09:53 Dose: 81 mg Atorvastatin Calcium (Lipitor) 20 mg PO HS [facility]; Protocol Stop: 03/12/19 20:59 Last Admin: 01/31/19 21:19 Dose: 20 mg Brimonidine Tartrate (Alphagan 0.1% Ophth Soln) 1 drop EACH EYE TID CAL Stop: 03/12/19 08:59 Last Admin: 02/01/19 13:46 Dose: 1 drop Carvedilol (Coreg) 12.5 mg PO BID [facility] Stop: 03/21/19 08:59 Last Admin: 02/01/19 17:05 Dose: Not Given Clonazepam (Klonopin) 0.5 mg PO BID [facility]; Protocol Stop: 03/22/19 08:59 Last Admin: 02/01/19 17:07 Dose: 0.5 mg Docusate Sodium (Colace) 100 mg PO BID [facility] Stop: 03/12/19 08:59 Last Admin: 02/01/19 17:04 Dose: 100 mg Duloxetine HCl (Cymbalta) 60 mg PO DAILY [facility]; Protocol Stop: 03/13/19 11:59 Last Admin: 02/01/19 09:55 Dose: 60 mg Fluticasone Propionate (Flonase) 1 spr NS DAILY CAL Stop: 03/12/19 08:59 Last Admin: 02/01/19 09:50 Dose: 1 spr Glucagon (Glucagen) 1 mg IM PRN PRN PRN Reason: BS below 70 Stop: 03/11/19 23:24 Haloperidol Decanoate (Haldol Dec) 50 mg IM QMONTH CAL; Protocol Stop: 03/17/19 15:59 Last Admin: 01/16/19 16:34 Dose: 50 mg Haloperidol Lactate (Haldol Concentrate 10mg/5ml Susp) 5 mg PO BID [facility]; Protocol Stop: 03/18/19 08:59 Last Admin: 02/01/19 17:04 Dose: 5 mg Hydralazine HCl (Apresoline) 10 mg PO BID CAL Stop: 03/12/19 08:59 Last Admin: 02/01/19 17:04 Dose: 10 mg Ibuprofen (Motrin) 600 mg PO Q8H PRN PRN Reason: breakthrough pain Stop: 03/12/19 00:35 Last Admin: 01/23/19 12:55 Dose: 600 mg Insulin Glargine (Lantus Insulin) 26 units SUBQ HS CAL Stop: 03/12/19 20:59 Last Admin: 01/31/19 21:53 Dose: 26 units Insulin Human Lispro (Humalog Insulin Sliding Scale) 0 units SUBQ [facility]; Protocol Stop: 03/11/19 20:59 Last Admin: 02/01/19 18:12 Dose: Not Given Isosorbide Dinitrate (Isordil) 10 mg PO Q8HR [facility] Stop: 03/12/19 04:59 Last Admin: 02/01/19 13:46 Dose: 10 mg Latanoprost (Xalatan 0.005% Ophth Soln) 1 drop EACH EYE HS [facility] Stop: 03/12/19 20:59 Last Admin: 01/31/19 21:18 Dose: 1 drop Levothyroxine Sodium (Synthroid) 0.075 mg PO QDAC [facility] Stop: 03/12/19 07:29 Last Admin: 02/01/19 06:28 Dose: 0.075 mg Loratadine (Claritin) 10 mg PO DAILY [facility] Stop: 03/12/19 08:59 Last Admin: 02/01/19 09:52 Dose: 10 mg Lorazepam (Ativan) 0.5 mg PO Q4HR PRN; Protocol PRN Reason: Anxiety/Agitation Stop: 02/09/19 19:56 Last Admin: 01/27/19 20:47 Dose: 0.5 mg Losartan Potassium (Cozaar) 50 mg PO DAILY [facility] Stop: 03/12/19 08:59 Last Admin: 02/01/19 09:56 Dose: 50 mg Magnesium Hydroxide (Milk Of Magnesia) 30 ml PO HS PRN PRN Reason: Constipation Multivitamins/Vitamin C (Theragran) 1 tab PO DAILY [facility] Stop: 03/12/19 08:59 Last Admin: 02/01/19 09:51 Dose: 1 tab Naproxen (Naprosyn) 500 mg PO BIDWM CAL Stop: 03/20/19 17:59 Last Admin: 02/01/19 17:16 Dose: 500 mg Nitroglycerin (Nitrostat) 0.4 mg SL Q5MIN PRN PRN Reason: CHEST PAIN Stop: 03/11/19 23:24 Last Admin: 01/19/19 16:46 Dose: 0.4 mg Nystatin (Nystop) 100 units TP DAILY [facility] Stop: 03/21/19 08:59 Last Admin: 02/01/19 09:50 Dose: 100 units Oxycodone/Acetaminophen (Percocet 5/325mg Oral Tab) 1 tab PO Q8H PRN PRN Reason: severe pain (7-10) Stop: 03/12/19 00:44 Last Admin: 01/31/19 12:02 Dose: 1 tab Senna (Senna) 17.2 mg PO HS CAL Stop: 03/12/19 20:59 Last Admin: 01/31/19 21:19 Dose: 17.2 mg Sodium Phosphate (Fleet Enema) 135 ml RC DAILY PRN PRN Reason: Constipation Stop: 03/11/19 23:24 Vitamin B Complex/Vit C/Folic Acid (Vitamin B Complex W/Vitamin C) 1 tab PO DAILY [facility] Stop: 03/12/19 08:59 Last Admin: 02/01/19 09:52 Dose: 1 tab Zolpidem Tartrate (Ambien) 5 mg PO HS PRN PRN Reason: Insomnia Stop: 03/11/19 19:56 Last Admin: 01/30/19 21:10 Dose: 5 mg General: alert HEENT: NC/AT, PERRLA, EOMI, anicteric sclerae, throat clear Neck: Supple, No JVD, No thyromegaly, +2 carotid pulse wo bruit, No LAD Lungs: CTAB Cardiovascular: RRR, Normal S1, Normal S2, without murmur Abdomen: soft, non-tender, non-distended Extremities: clear Neurological: no change Internal Medicine Assmt/Plan - Assessment Assessment: 1.DM. 2.HTN. 3.HYPOTHYROIDISM. 5.PSYCHOSIS - Plan Plan: CONTINUE ON CURRENT MEDICATION AND DIET. Nutritional Asmnt/Malnutr-PDOC - Dietary Evaluation Malnutrition Findings (Please click <Entered> for more info): Nutritional Asmnt/Malnutrition Start: 01/11/19 12: 41 Text: Status: Complete Freq: Protocol: Document 01/11/19 12:41 AXEL (Rec: 01/11/19 12:45 [email or web address] [email or web address]) Nutritional Asmnt/Malnutrition Patient General Information Nutritional Screening Consult Diagnosis PSYCHOSIS Pertinent Medical Hx/Surgical Hx HTN, DM, HYPOTHYROIDISM, PSYCHOSIS, DJD Subjective Information IA CONSULT: DM PT IS A 78 YEAR OLD FEMALE [facility] D/T AGGRESSIVE BEHAVIOR. PT WAS HERE RECENTLY, DISCHARGED ON . PER MEAL/NUTRITION ACTIVITY RECORD, PT TYPICALLY ATE 100% MEALS. HT: 59 WT: 310 LB (141 KG) ABW: 186 LB (84.66 KG) BMI: 45.78 (OBESE III) GI: WNL, NON-TENDER, LARGE, ROUND BM: NOT NOTED I/O: 240/NOT NOTED SKIN: SKIN BREAKDOWN TO BUTTOCKS AREA LUIS: NOT NOTED DIET ORDER: CCHO 45GM, PUREED ESTIMATED ENERGY NEEDS: (OBESE III, ABW) 1539-5331 KCALS (20-25 KCALS/ KG) 68-85 G PRO (0.8-1.0 G/KG) 6405-1627 ML (25-30 ML/KG) PT PO INTAKE: 100% SNACK PROVIDED. Current Diet Order/ Nutrition Support CCHO 45GM, PUREED Pertinent Medications MAALOX (PRN), ALBUTEROL (PRN), LIPITOR, COREG, COLACE, GLUCAGON (PRN), LANTUS, SYNTHROID, INS-SS, COZAAR, MOM (PRN), THEREGRAN, SENNA, FLEET ENEMA (PRN), VIT B COMLPEX WITH VIT C Pertinent Labs 01/10: NA 131, GLUCOSE 363 POC GLUCOSE (LAST 24 HOURS): 257, 250 Nutritional Hx/Data Height 1.75 m Height (Calculated Centimeters) 175.3 Current Weight (lbs) 140.614 kg Weight (Calculated Kilograms) 140.6 Weight (Calculated Grams) 317600.6 [place] Body Weight 145 % [place] Body Weight 214 Body Mass Index (BMI) 45.8 Weight Status Morbidly Obese GI Symptoms GI Symptoms None Last BM NOT NOTED Skin Integrity/Comment: SKIN BREAKDOWN TO BUTTOCKS AREA LUIS: NOT NOTED Current %PO Good (75-100%) Estimated Nutritional Goals BEE in Kcals: Adj wt of IBW Calories/Kcals/Kg 20-25 Kcals Calculated 1433-5751 Protein: Adj wt of IBW Protein g/k.8-1.0 Protein Calculated 68-85 Fluid: ml 4299-9228 ML (25-30 ML/KG) Nutritional Problem 1. Problem Problem ALTERED NUTRITION RELATED LABS Etiology R/T ENDOCRINE DYSFUNCTION Signs/Symptoms: AEB HX DM AND GLUCOSE 363 Malnutrition Related to Morbid Obesity Malnutrition related to morbid obesity Weight 200% of ideal wt Query Text:(Any 1 Criteria met) Malnutrition related to morbid obesity Yes Intervention/Recommendation Comments 1. CONTINUE WITH [facility] 45GM, PUREED DIET ORDERED. 2. CONTNIUE ANTIHYPERGLYCEMIC MEDICATION FOR GLUCOSE CONTROL PER MD ORDER. Expected Outcomes/Goals Expected Outcomes/Goals 1. PO INTAKE TO MEET 75% OF NUTRITIONAL NEEDS. 2. MONITOR PO INTAKE, WT, NUTRITION RELATED LABS AND SKIN INTEGRITY. 3. F/U LOW RISK IN 7 DAYS, 01/18
[2019-02-01] MEDS: Atorvastatin Calcium 10 MG TAB PO SCH (23:45)
[2019-02-01] MEDS: Insulin Glargine 100 units/ml 10ml Vial SUBQ SCH (23:50)
[2019-02-02] MEDS: Levothyroxine 0.075 Mg Tab PO SCH (07:04)
[2019-02-02] MEDS: INSULIN LISPRO SLIDING SCALE 100 UNITS/ML UNIT SUBQ SCH ×4 (07:07→21:43)
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
[2019-02-02] MEDS: Multivitamin Tab PO SCH (09:33)
[2019-02-02] MEDS: Vitamin B Complex w/Vitamin C Tab PO SCH (09:34)
[2019-02-02] MEDS: NYSTATIN 100000 UNITS/GM POWD TP SCH (09:34)
[2019-02-02] MEDS: Haldol Oral Sol.(concentrate) 10 mg/5 mL Udc PO SCH ×2 (09:34→17:49)
[2019-02-02] MEDS: Fluticasone Propionate Nasal 1 SPR SPR NS SCH (09:35)
[2019-02-02] MEDS: APAP/Oxycodone 5/325mg Tab PO PRN (14:39)
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
--- NOTE | 2019-02-02 20:25 | Internal Medicine Prog Note ---
Internal Medicine Subjective - Subjective Service Date: 02/02/19 Patient seen and examined:: without staff (SHE FEELS WELL) Patient is:: awake, verbal, in bed, talking Per staff patient has:: no adverse event Internal Medicine Objective - Results Result Diagrams: 01/10/19 15:10 01/10/19 15:10 Recent Labs: Laboratory Last Values WBC 8.4 Th/cmm (4.8-10.8) 01/10/19 15:10 RBC 5.16 Mil/cmm (3.80-5.20) 01/10/19 15:10 Hgb 14.9 gm/dL (12-16) 01/10/19 15:10 Hct 44.3 % (41.0-60) 01/10/19 15:10 MCV 85.8 fl (81-100) 01/10/19 15:10 MCH 28.9 pg (27.0-31.0) 01/10/19 15:10 MCHC Differential 33.7 pg (28.0-36.0) 01/10/19 15:10 RDW 12.1 % (11.5-20.0) 01/10/19 15:10 Plt Count 291 Th/cmm (150-400) 01/10/19 15:10 MPV 7.3 fl 01/10/19 15:10 Neutrophils % 59.5 % (40.0-80.0) 01/10/19 15:10 Lymphocytes % 31.2 % (20.0-50.0) 01/10/19 15:10 Monocytes % 5.0 % (2.0-10.0) 01/10/19 15:10 Eosinophils % 4.3 % (0.0-5.0) 01/10/19 15:10 Basophils % 0.0 % (0.0-2.0) 01/10/19 15:10 Sodium 131 mEq/L (136-145) L 01/10/19 15:10 Potassium 4.2 mEq/L (3.5-5.1) 01/10/19 15:10 Chloride 96 mEq/L (98-107) L 01/10/19 15:10 Carbon Dioxide 23.9 mEq/L (21.0-31.0) 01/10/19 15:10 Anion Gap 15.3 (7.0-16.0) 01/10/19 15:10 BUN 18 mg/dL (7-25) 01/10/19 15:10 Creatinine 1.0 mg/dL (0.6-1.2) 01/10/19 15:10 Est GFR ( Amer) TNP 01/10/19 15:10 Est GFR (Non-Af Amer) TNP 01/10/19 15:10 BUN/Creatinine Ratio 18.0 01/10/19 15:10 Glucose 363 mg/dL (70-105) H 01/10/19 15:10 POC Glucose 231 MG/DL (70 - 105) H 01/16/19 16:34 Calcium 9.6 mg/dL (8.6-10.3) 01/10/19 15:10 Total Bilirubin 0.5 mg/dL (0.3-1.0) 01/10/19 15:10 AST 13 U/L (13-39) 01/10/19 15:10 ALT 14 U/L (7-52) 01/10/19 15:10 Alkaline Phosphatase 66 U/L (34-104) 01/10/19 15:10 Troponin I 0.04 ng/mL (0.01-0.05) 01/19/19 22:30 Total Protein 7.1 gm/dL (6.0-8.3) 01/10/19 15:10 Albumin 3.7 gm/dL (3.7-5.3) 01/10/19 15:10 Globulin 3.4 gm/dL 01/10/19 15:10 Albumin/Globulin Ratio 1.1 (1.0-1.8) 01/10/19 15:10 Triglycerides 417 mg/dL (<150) H 01/10/19 15:10 Cholesterol 188 mg/dL (<200) 01/10/19 15:10 LDL Cholesterol Direct 109 mg/dL (75-193) 01/10/19 15:10 HDL Cholesterol 27 mg/dL (23-92) 01/10/19 15:10 TSH 1.76 uIU/ml (0.34-5.60) 01/10/19 15:10 Urine Source CLEAN C 01/14/19 17:00 Urine Color YELLOW 01/14/19 17:00 Urine Clarity CLOUDY (CLEAR) H 01/14/19 17:00 Urine pH 6.5 (4.6 - 8.0) 01/14/19 17:00 Ur Specific [place] <= 1.005 (1.005-1.030) 01/14/19 17:00 Urine Protein NEGATIVE mg/dL (NEGATIVE) 01/14/19 17:00 Urine Glucose (UA) 100 mg/dL (NEGATIVE) H 01/14/19 17:00 Urine Ketones NEGATIVE mg/dL (NEGATIVE) 01/14/19 17:00 Urine Blood SMALL (NEGATIVE) H 01/14/19 17:00 Urine Nitrate NEGATIVE (NEGATIVE) 01/14/19 17:00 Urine Bilirubin NEGATIVE (NEGATIVE) 01/14/19 17:00 Urine Urobilinogen 0.2 E.U./dL (0.2 - 1.0) 01/14/19 17:00 Ur Leukocyte Esterase MODERATE (NEGATIVE) H 01/14/19 17:00 Urine RBC 2-5 /hpf (0-5) 01/14/19 17:00 Urine WBC 6-10 /hpf (0-5) H 01/14/19 17:00 Ur Epithelial Cells FEW /lpf (FEW) 01/14/19 17:00 Urine Bacteria MANY /hpf (NONE SEEN) H 01/14/19 17:00 RPR NONREACTIVE (NONREACTIVE) 01/10/19 15:10 - Physical Exam Vitals and I&O: Vital Signs Temp 98.9 F 02/02/19 14:00 Pulse 85 02/02/19 19:00 Resp 18 02/02/19 19:00 BP 165/95 02/02/19 17:50 Pulse Ox 95 02/02/19 19:00 Intake & Output 02/02/19 02/02/19 02/03/19 06:59 18:59 06:59 Intake Total 240 1200 Balance 240 1200 Intake: Oral 240 1200 Other: # Voids 1 4 # Bowel Movements 0 Stool Characteristics Formed Soft Brown Formed Brown Active Medications: Current Medications Acetaminophen (Tylenol Extra Strength) 500 mg PO Q4H PRN PRN Reason: Pain or Fever >101 Stop: 03/12/19 00:41 Last Admin: 01/21/19 22:32 Dose: 500 mg Al Hydrox/Mg Hydrox/Simethicone (Maalox) 30 ml PO Q4HR PRN PRN Reason: GI DISTRESS Stop: 03/11/19 19:56 Albuterol/Ipratropium (Duoneb Neb) 3 ml HHN Q4H PRN PRN Reason: Wheezing Stop: 03/12/19 00:48 Last Admin: 01/27/19 07:28 Dose: 3 ml Aripiprazole (Abilify) 30 mg PO DAILY [facility]; Protocol Stop: 03/17/19 08:59 Last Admin: 02/02/19 09:31 Dose: 30 mg Aspirin (Ecotrin) 81 mg PO DAILY [facility] Stop: 03/12/19 08:59 Last Admin: 02/02/19 09:32 Dose: 81 mg Atorvastatin Calcium (Lipitor) 20 mg PO HS [facility]; Protocol Stop: 03/12/19 20:59 Last Admin: 02/01/19 23:45 Dose: 20 mg Brimonidine Tartrate (Alphagan 0.1% Oph Soln) 1 drop EACH EYE TID [facility] Stop: 03/12/19 08:59 Last Admin: 02/02/19 14:38 Dose: 1 drop Carvedilol (Coreg) 12.5 mg PO BID [facility] Stop: 03/21/19 08:59 Last Admin: 02/02/19 17:49 Dose: 12.5 mg Clonazepam (Klonopin) 0.5 mg PO BID [facility]; Protocol Stop: 03/22/19 08:59 Last Admin: 02/02/19 17:49 Dose: 0.5 mg Docusate Sodium (Colace) 100 mg PO BID [facility] Stop: 03/12/19 08:59 Last Admin: 02/02/19 17:49 Dose: Not Given Duloxetine HCl (Cymbalta) 60 mg PO DAILY [facility]; Protocol Stop: 03/13/19 11:59 Last Admin: 02/02/19 09:31 Dose: 60 mg Fluticasone Propionate (Flonase) 1 spr NS DAILY [facility] Stop: 03/12/19 08:59 Last Admin: 02/02/19 09:35 Dose: 1 spr Glucagon (Glucagen) 1 mg IM PRN PRN PRN Reason: BS below 70 Stop: 03/11/19 23:24 Haloperidol Decanoate (Haldol Dec) 50 mg IM QMONTH [facility]; Protocol Stop: 03/17/19 15:59 Last Admin: 01/16/19 16:34 Dose: 50 mg Haloperidol Lactate (Haldol Concentrate 10mg/5ml Susp) 5 mg PO BID [facility]; Protocol Stop: 03/18/19 08:59 Last Admin: 02/02/19 17:49 Dose: 5 mg Hydralazine HCl (Apresoline) 10 mg PO BID [facility] Stop: 03/12/19 08:59 Last Admin: 02/02/19 17:50 Dose: 10 mg Ibuprofen (Motrin) 600 mg PO Q8H PRN PRN Reason: breakthrough pain Stop: 03/12/19 00:35 Last Admin: 01/23/19 12:55 Dose: 600 mg Insulin Glargine (Lantus Insulin) 26 units SUBQ HS [facility] Stop: 03/12/19 20:59 Last Admin: 02/01/19 23:50 Dose: Not Given Insulin Human Lispro (Humalog Insulin Sliding Scale) 0 units SUBQ ACHS [facility]; Protocol Stop: 03/11/19 20:59 Last Admin: 02/02/19 17:48 Dose: Not Given Isosorbide Dinitrate (Isordil) 10 mg PO Q8HR [facility] Stop: 03/12/19 04:59 Last Admin: 02/02/19 14:38 Dose: 10 mg Latanoprost (Xalatan 0.005% Ophth Soln) 1 drop EACH EYE HS [facility] Stop: 03/12/19 20:59 Last Admin: 02/01/19 23:52 Dose: Not Given Levothyroxine Sodium (Synthroid) 0.075 mg PO QDAC [facility] Stop: 03/12/19 07:29 Last Admin: 02/02/19 07:04 Dose: 0.075 mg Loratadine (Claritin) 10 mg PO DAILY [facility] Stop: 03/12/19 08:59 Last Admin: 02/02/19 09:34 Dose: 10 mg Lorazepam (Ativan) 0.5 mg PO Q4HR PRN; Protocol PRN Reason: Anxiety/Agitation Stop: 02/09/19 19:56 Last Admin: 01/27/19 20:47 Dose: 0.5 mg Losartan Potassium (Cozaar) 50 mg PO DAILY [facility] Stop: 03/12/19 08:59 Last Admin: 02/02/19 09:34 Dose: 50 mg Magnesium Hydroxide (Milk Of Magnesia) 30 ml PO HS PRN PRN Reason: Constipation Multivitamins/Vitamin C (Theragran) 1 tab PO DAILY [facility] Stop: 03/12/19 08:59 Last Admin: 02/02/19 09:33 Dose: 1 tab Naproxen (Naprosyn) 500 mg PO BIDWM [facility] Stop: 03/20/19 17:59 Last Admin: 02/02/19 17:48 Dose: Not Given Nitroglycerin (Nitrostat) 0.4 mg SL Q5MIN PRN PRN Reason: CHEST PAIN Stop: 03/11/19 23:24 Last Admin: 01/19/19 16:46 Dose: 0.4 mg Nystatin (Nystop) 100 units TP DAILY [facility] Stop: 03/21/19 08:59 Last Admin: 02/02/19 09:34 Dose: 100 units Oxycodone/Acetaminophen (Percocet 5/325mg Oral Tab) 1 tab PO Q8H PRN PRN Reason: severe pain (7-10) Stop: 03/12/19 00:44 Last Admin: 02/02/19 14:39 Dose: 1 tab Senna (Senna) 17.2 mg PO HS [facility] Stop: 03/12/19 20:59 Last Admin: 02/01/19 23:45 Dose: 17.2 mg Sodium Phosphate (Fleet Enema) 135 ml RC DAILY PRN PRN Reason: Constipation Stop: 03/11/19 23:24 Vitamin B Complex/Vit C/Folic Acid (Vitamin B Complex W/Vitamin C) 1 tab PO DAILY [facility] Stop: 03/12/19 08:59 Last Admin: 02/02/19 09:34 Dose: 1 tab Zolpidem Tartrate (Ambien) 5 mg PO HS PRN PRN Reason: Insomnia Stop: 03/11/19 19:56 Last Admin: 01/30/19 21:10 Dose: 5 mg General: alert HEENT: NC/AT, PERRLA, EOMI, anicteric sclerae, throat clear Neck: Supple, No JVD, No thyromegaly, +2 carotid pulse wo bruit, No LAD Lungs: CTAB Cardiovascular: RRR, Normal S1, Normal S2, without murmur Abdomen: soft, non-tender, non-distended Extremities: clear Neurological: no change Internal Medicine Assmt/Plan - Assessment Assessment: 1.DM. 2.HTN. 3.HYPOTHYROIDISM. 5.PSYCHOSIS - Plan Plan: CONTINUE ON CURRENT MEDICATION AND DIET. Nutritional Asmnt/Malnutr-PDOC - Dietary Evaluation Malnutrition Findings (Please click <Entered> for more info): Nutritional Asmnt/Malnutrition Start: 01/11/19 12: 41 Text: Status: Complete Freq: Protocol: Document 01/11/19 12:41 AXEL (Rec: 01/11/19 12:45 AXEL [email or web address]) Nutritional Asmnt/Malnutrition Patient General Information Nutritional Screening Consult Diagnosis PSYCHOSIS Pertinent Medical Hx/Surgical Hx HTN, DM, HYPOTHYROIDISM, PSYCHOSIS, DJD Subjective Information IA CONSULT: DM PT IS A 78 YEAR OLD FEMALE FROM [facility] ADMITTED ON 01/10 D/T AGGRESSIVE BEHAVIOR. PT WAS HERE RECENTLY, DISCHARGED ON . PER MEAL/NUTRITION ACTIVITY RECORD, PT TYPICALLY ATE 100% MEALS. HT: 59 WT: 310 LB (141 KG) ABW: 186 LB (84.66 KG) BMI: 45.78 (OBESE III) GI: WNL, NON-TENDER, LARGE, ROUND BM: NOT NOTED I/O: 240/NOT NOTED SKIN: SKIN BREAKDOWN TO BUTTOCKS AREA LUIS: NOT NOTED DIET ORDER: CCHO 45GM, PUREED ESTIMATED ENERGY NEEDS: (OBESE III, ABW) 9144-7875 KCALS (20-25 KCALS/ KG) 68-85 G PRO (0.8-1.0 G/KG) 0085-3380 ML (25-30 ML/KG) PT PO INTAKE: 100% SNACK PROVIDED. Current Diet Order/ Nutrition Support CCHO 45GM, PUREED Pertinent Medications MAALOX (PRN), ALBUTEROL (PRN), LIPITOR, COREG, COLACE, GLUCAGON (PRN), LANTUS, SYNTHROID, INS-SS, COZAAR, MOM (PRN), THEREGRAN, SENNA, FLEET ENEMA (PRN), VIT B COMLPEX WITH VIT C Pertinent Labs 01/10: NA 131, GLUCOSE 363 POC GLUCOSE (LAST 24 HOURS): 257, 250 Nutritional Hx/Data Height 1.75 m Height (Calculated Centimeters) 175.3 Current Weight (lbs) 140.614 kg Weight (Calculated Kilograms) 140.6 Weight (Calculated Grams) 203874.6 [place] Body Weight 145 % [place] Body Weight 214 Body Mass Index (BMI) 45.8 Weight Status Morbidly Obese GI Symptoms GI Symptoms None Last BM NOT NOTED Skin Integrity/Comment: SKIN BREAKDOWN TO BUTTOCKS AREA LUIS: NOT NOTED Current %PO Good (75-100%) Estimated Nutritional Goals BEE in Kcals: Adj wt of IBW Calories/Kcals/Kg 20-25 Kcals Calculated 6194-7587 Protein: Adj wt of IBW Protein g/k.8-1.0 Protein Calculated 68-85 Fluid: ml 2346-3544 ML (25-30 ML/KG) Nutritional Problem 1. Problem Problem ALTERED NUTRITION RELATED LABS Etiology R/T ENDOCRINE DYSFUNCTION Signs/Symptoms: AEB HX DM AND GLUCOSE 363 Malnutrition Related to Morbid Obesity Malnutrition related to morbid obesity Weight 200% of ideal wt Query Text:(Any 1 Criteria met) Malnutrition related to morbid obesity Yes Intervention/Recommendation Comments 1. CONTINUE WITH [facility] 45GM, PUREED DIET ORDERED. 2. CONTNIUE ANTIHYPERGLYCEMIC MEDICATION FOR GLUCOSE CONTROL PER MD ORDER. Expected Outcomes/Goals Expected Outcomes/Goals 1. PO INTAKE TO MEET 75% OF NUTRITIONAL NEEDS. 2. MONITOR PO INTAKE, WT, NUTRITION RELATED LABS AND SKIN INTEGRITY. 3. F/U LOW RISK IN 7 DAYS, 01/18
[2019-02-02] MEDS: Atorvastatin Calcium 10 MG TAB PO SCH (21:46)
[2019-02-02] MEDS: Insulin Glargine 100 units/ml 10ml Vial SUBQ SCH (21:46)
[2019-02-03] MEDS: INSULIN LISPRO SLIDING SCALE 100 UNITS/ML UNIT SUBQ SCH ×4 (06:48→21:29)
[2019-02-03] MEDS: Levothyroxine 0.075 Mg Tab PO SCH (06:49)
--- NOTE | 2019-02-03 08:49 | Progress Notes ---
DATE: SUBJECTIVE: Chart was reviewed and the patient interviewed. Also discussed the patient's condition with the staff and reviewed records and labs. The patient is still in irritable and angry mood at times, but most of the time the patient is depressed and isolative and wants to be left alone. The patient also is still feeling hopeless and helpless. She also is interacting more with peers and with others. The patient denies any hallucinations or delusions and she is compliant with taking her medications with no side effects. ASSESSMENT: The patient is more depressed and still waiting for placement and no side effect of medications. TREATMENT PLAN: We will continue working on placement issue and will continue to follow up. JOB# [id number]
[2019-02-03] MEDS: Vitamin B Complex w/Vitamin C Tab PO SCH (09:53)
[2019-02-03] MEDS: Haldol Oral Sol.(concentrate) 10 mg/5 mL Udc PO SCH ×2 (09:54→17:54)
[2019-02-03] MEDS: Multivitamin Tab PO SCH (09:54)
[2019-02-03] MEDS: Fluticasone Propionate Nasal 1 SPR SPR NS SCH (09:54)
[2019-02-03] MEDS: NYSTATIN 100000 UNITS/GM POWD TP SCH (09:55)
[2019-02-03] MEDS: APAP/Oxycodone 5/325mg Tab PO PRN (15:05)
--- NOTE | 2019-02-03 19:52 | Internal Medicine Prog Note ---
Internal Medicine Subjective - Subjective Service Date: 02/03/19 Patient seen and examined:: without staff (SHE FEELS BETTER) Patient is:: awake, verbal, in bed, talking Per staff patient has:: no adverse event Internal Medicine Objective - Results Result Diagrams: 01/10/19 15:10 01/10/19 15:10 Recent Labs: Laboratory Last Values WBC 8.4 Th/cmm (4.8-10.8) 01/10/19 15:10 RBC 5.16 Mil/cmm (3.80-5.20) 01/10/19 15:10 Hgb 14.9 gm/dL (12-16) 01/10/19 15:10 Hct 44.3 % (41.0-60) 01/10/19 15:10 MCV 85.8 fl (81-100) 01/10/19 15:10 MCH 28.9 pg (27.0-31.0) 01/10/19 15:10 MCHC Differential 33.7 pg (28.0-36.0) 01/10/19 15:10 RDW 12.1 % (11.5-20.0) 01/10/19 15:10 Plt Count 291 Th/cmm (150-400) 01/10/19 15:10 MPV 7.3 fl 01/10/19 15:10 Neutrophils % 59.5 % (40.0-80.0) 01/10/19 15:10 Lymphocytes % 31.2 % (20.0-50.0) 01/10/19 15:10 Monocytes % 5.0 % (2.0-10.0) 01/10/19 15:10 Eosinophils % 4.3 % (0.0-5.0) 01/10/19 15:10 Basophils % 0.0 % (0.0-2.0) 01/10/19 15:10 Sodium 131 mEq/L (136-145) L 01/10/19 15:10 Potassium 4.2 mEq/L (3.5-5.1) 01/10/19 15:10 Chloride 96 mEq/L (98-107) L 01/10/19 15:10 Carbon Dioxide 23.9 mEq/L (21.0-31.0) 01/10/19 15:10 Anion Gap 15.3 (7.0-16.0) 01/10/19 15:10 BUN 18 mg/dL (7-25) 01/10/19 15:10 Creatinine 1.0 mg/dL (0.6-1.2) 01/10/19 15:10 Est GFR ( Amer) TNP 01/10/19 15:10 Est GFR (Non-Af Amer) TNP 01/10/19 15:10 BUN/Creatinine Ratio 18.0 01/10/19 15:10 Glucose 363 mg/dL (70-105) H 01/10/19 15:10 POC Glucose 231 MG/DL (70 - 105) H 01/16/19 16:34 Calcium 9.6 mg/dL (8.6-10.3) 01/10/19 15:10 Total Bilirubin 0.5 mg/dL (0.3-1.0) 01/10/19 15:10 AST 13 U/L (13-39) 01/10/19 15:10 ALT 14 U/L (7-52) 01/10/19 15:10 Alkaline Phosphatase 66 U/L (34-104) 01/10/19 15:10 Troponin I 0.04 ng/mL (0.01-0.05) 01/19/19 22:30 Total Protein 7.1 gm/dL (6.0-8.3) 01/10/19 15:10 Albumin 3.7 gm/dL (3.7-5.3) 01/10/19 15:10 Globulin 3.4 gm/dL 01/10/19 15:10 Albumin/Globulin Ratio 1.1 (1.0-1.8) 01/10/19 15:10 Triglycerides 417 mg/dL (<150) H 01/10/19 15:10 Cholesterol 188 mg/dL (<200) 01/10/19 15:10 LDL Cholesterol Direct 109 mg/dL (75-193) 01/10/19 15:10 HDL Cholesterol 27 mg/dL (23-92) 01/10/19 15:10 TSH 1.76 uIU/ml (0.34-5.60) 01/10/19 15:10 Urine Source CLEAN C 01/14/19 17:00 Urine Color YELLOW 01/14/19 17:00 Urine Clarity CLOUDY (CLEAR) H 01/14/19 17:00 Urine pH 6.5 (4.6 - 8.0) 01/14/19 17:00 Ur Specific [place] <= 1.005 (1.005-1.030) 01/14/19 17:00 Urine Protein NEGATIVE mg/dL (NEGATIVE) 01/14/19 17:00 Urine Glucose (UA) 100 mg/dL (NEGATIVE) H 01/14/19 17:00 Urine Ketones NEGATIVE mg/dL (NEGATIVE) 01/14/19 17:00 Urine Blood SMALL (NEGATIVE) H 01/14/19 17:00 Urine Nitrate NEGATIVE (NEGATIVE) 01/14/19 17:00 Urine Bilirubin NEGATIVE (NEGATIVE) 01/14/19 17:00 Urine Urobilinogen 0.2 E.U./dL (0.2 - 1.0) 01/14/19 17:00 Ur Leukocyte Esterase MODERATE (NEGATIVE) H 01/14/19 17:00 Urine RBC 2-5 /hpf (0-5) 01/14/19 17:00 Urine WBC 6-10 /hpf (0-5) H 01/14/19 17:00 Ur Epithelial Cells FEW /lpf (FEW) 01/14/19 17:00 Urine Bacteria MANY /hpf (NONE SEEN) H 01/14/19 17:00 RPR NONREACTIVE (NONREACTIVE) 01/10/19 15:10 - Physical Exam Vitals and I&O: Vital Signs Temp 98.8 F 02/03/19 13:47 Pulse 84 02/03/19 18:37 Resp 18 02/03/19 18:37 BP 157/93 02/03/19 17:53 Pulse Ox 94 02/03/19 18:37 Intake & Output 02/03/19 02/03/19 02/04/19 06:59 18:59 06:59 Intake Total 300 Balance 300 Intake: Oral 300 Other: # Voids 3 3 # Bowel Movements 1 Stool Characteristics Formed Brown Active Medications: Current Medications Acetaminophen (Tylenol Extra Strength) 500 mg PO Q4H PRN PRN Reason: Pain or Fever >101 Stop: 03/12/19 00:41 Last Admin: 01/21/19 22:32 Dose: 500 mg Al Hydrox/Mg Hydrox/Simethicone (Maalox) 30 ml PO Q4HR PRN PRN Reason: GI DISTRESS Stop: 03/11/19 19:56 Albuterol/Ipratropium (Duoneb Neb) 3 ml HHN Q4H PRN PRN Reason: Wheezing Stop: 03/12/19 00:48 Last Admin: 01/27/19 07:28 Dose: 3 ml Aripiprazole (Abilify) 30 mg PO DAILY [facility]; Protocol Stop: 03/17/19 08:59 Last Admin: 02/03/19 09:54 Dose: 30 mg Aspirin (Ecotrin) 81 mg PO DAILY [facility] Stop: 03/12/19 08:59 Last Admin: 02/03/19 09:53 Dose: 81 mg Atorvastatin Calcium (Lipitor) 20 mg PO HS [facility]; Protocol Stop: 03/12/19 20:59 Last Admin: 02/02/19 21:46 Dose: 20 mg Brimonidine Tartrate (Alphagan 0.1% Ophth Soln) 1 drop EACH EYE TID [facility] Stop: 03/12/19 08:59 Last Admin: 02/03/19 17:52 Dose: 1 drop Carvedilol (Coreg) 12.5 mg PO BID [facility] Stop: 03/21/19 08:59 Last Admin: 02/03/19 17:53 Dose: 12.5 mg Clonazepam (Klonopin) 0.5 mg PO BID [facility]; Protocol Stop: 03/22/19 08:59 Last Admin: 02/03/19 17:53 Dose: 0.5 mg Docusate Sodium (Colace) 100 mg PO BID [facility] Stop: 03/12/19 08:59 Last Admin: 02/03/19 17:54 Dose: Not Given Duloxetine HCl (Cymbalta) 60 mg PO DAILY [facility]; Protocol Stop: 03/13/19 11:59 Last Admin: 02/03/19 09:53 Dose: 60 mg Fluticasone Propionate (Flonase) 1 spr NS DAILY [facility] Stop: 03/12/19 08:59 Last Admin: 02/03/19 09:54 Dose: 1 spr Glucagon (Glucagen) 1 mg IM PRN PRN PRN Reason: BS below 70 Stop: 03/11/19 23:24 Haloperidol Decanoate (Haldol Dec) 50 mg IM QMONTH [facility]; Protocol Stop: 03/17/19 15:59 Last Admin: 01/16/19 16:34 Dose: 50 mg Haloperidol Lactate (Haldol Concentrate 10mg/5ml Susp) 5 mg PO BID [facility]; Protocol Stop: 03/18/19 08:59 Last Admin: 02/03/19 17:54 Dose: 5 mg Hydralazine HCl (Apresoline) 10 mg PO BID [facility] Stop: 03/12/19 08:59 Last Admin: 02/03/19 17:53 Dose: 10 mg Ibuprofen (Motrin) 600 mg PO Q8H PRN PRN Reason: breakthrough pain Stop: 03/12/19 00:35 Last Admin: 01/23/19 12:55 Dose: 600 mg Insulin Glargine (Lantus Insulin) 26 units SUBQ HS [facility] Stop: 03/12/19 20:59 Last Admin: 02/02/19 21:46 Dose: 26 units Insulin Human Lispro (Humalog Insulin Sliding Scale) 0 units SUBQ [facility]; Protocol Stop: 03/11/19 20:59 Last Admin: 02/03/19 17:52 Dose: Not Given Isosorbide Dinitrate (Isordil) 10 mg PO Q8HR [facility] Stop: 03/12/19 04:59 Last Admin: 02/03/19 15:05 Dose: 10 mg Latanoprost (Xalatan 0.005% Ophth Soln) 1 drop EACH EYE HS [facility] Stop: 03/12/19 20:59 Last Admin: 02/02/19 21:47 Dose: 1 drop Levothyroxine Sodium (Synthroid) 0.075 mg PO QDAC [facility] Stop: 03/12/19 07:29 Last Admin: 02/03/19 06:49 Dose: 0.075 mg Loratadine (Claritin) 10 mg PO DAILY [facility] Stop: 03/12/19 08:59 Last Admin: 02/03/19 09:53 Dose: 10 mg Lorazepam (Ativan) 0.5 mg PO Q4HR PRN; Protocol PRN Reason: Anxiety/Agitation Stop: 02/09/19 19:56 Last Admin: 02/02/19 22:46 Dose: 0.5 mg Losartan Potassium (Cozaar) 50 mg PO DAILY [facility] Stop: 03/12/19 08:59 Last Admin: 02/03/19 09:55 Dose: Not Given Magnesium Hydroxide (Milk Of Magnesia) 30 ml PO HS PRN PRN Reason: Constipation Multivitamins/Vitamin C (Theragran) 1 tab PO DAILY [facility] Stop: 03/12/19 08:59 Last Admin: 02/03/19 09:54 Dose: 1 tab Naproxen (Naprosyn) 500 mg PO BIDWM [facility] Stop: 03/20/19 17:59 Last Admin: 02/03/19 17:52 Dose: Not Given Nitroglycerin (Nitrostat) 0.4 mg SL Q5MIN PRN PRN Reason: CHEST PAIN Stop: 03/11/19 23:24 Last Admin: 01/19/19 16:46 Dose: 0.4 mg Nystatin (Nystop) 100 units TP DAILY [facility] Stop: 03/21/19 08:59 Last Admin: 02/03/19 09:55 Dose: 100 units Oxycodone/Acetaminophen (Percocet 5/325mg Oral Tab) 1 tab PO Q8H PRN PRN Reason: severe pain (7-10) Stop: 03/12/19 00:44 Last Admin: 02/03/19 15:05 Dose: 1 tab Senna (Senna) 17.2 mg PO HS [facility] Stop: 03/12/19 20:59 Last Admin: 02/02/19 21:47 Dose: 17.2 mg Sodium Phosphate (Fleet Enema) 135 ml RC DAILY PRN PRN Reason: Constipation Stop: 03/11/19 23:24 Vitamin B Complex/Vit C/Folic Acid (Vitamin B Complex W/Vitamin C) 1 tab PO DAILY [facility] Stop: 03/12/19 08:59 Last Admin: 02/03/19 09:53 Dose: 1 tab Zolpidem Tartrate (Ambien) 5 mg PO HS PRN PRN Reason: Insomnia Stop: 03/11/19 19:56 Last Admin: 02/02/19 21:48 Dose: 5 mg General: alert HEENT: NC/AT, PERRLA, EOMI, anicteric sclerae, throat clear Neck: Supple, No JVD, No thyromegaly, +2 carotid pulse wo bruit, No LAD Lungs: CTAB Cardiovascular: RRR, Normal S1, Normal S2, without murmur Abdomen: soft, non-tender, non-distended Extremities: clear Neurological: no change Internal Medicine Assmt/Plan - Assessment Assessment: 1.DM. 2.HTN. 3.HYPOTHYROIDISM. 5.PSYCHOSIS - Plan Plan: CONTINUE ON CURRENT MEDICATION AND DIET. Nutritional Asmnt/Malnutr-PDOC - Dietary Evaluation Malnutrition Findings (Please click <Entered> for more info): Nutritional Asmnt/Malnutrition Start: 01/11/19 12: 41 Text: Status: Complete Freq: Protocol: Document 01/11/19 12:41 AXEL (Rec: 01/11/19 12:45 [email or web address] [email or web address]) Nutritional Asmnt/Malnutrition Patient General Information Nutritional Screening Consult Diagnosis PSYCHOSIS Pertinent Medical Hx/Surgical Hx HTN, DM, HYPOTHYROIDISM, PSYCHOSIS, DJD Subjective Information IA CONSULT: DM PT IS A 78 YEAR OLD FEMALE [facility] ON [facility] D/T AGGRESSIVE BEHAVIOR. PT WAS HERE RECENTLY, DISCHARGED ON . PER MEAL/NUTRITION ACTIVITY RECORD, PT TYPICALLY ATE 100% MEALS. HT: 59 WT: 310 LB (141 KG) ABW: 186 LB (84.66 KG) BMI: 45.78 (OBESE III) GI: WNL, NON-TENDER, LARGE, ROUND BM: NOT NOTED I/O: 240/NOT NOTED SKIN: SKIN BREAKDOWN TO BUTTOCKS AREA LUIS: NOT NOTED DIET ORDER: CCHO 45GM, PUREED ESTIMATED ENERGY NEEDS: (OBESE III, ABW) 6977-6632 KCALS (20-25 KCALS/ KG) 68-85 G PRO (0.8-1.0 G/KG) 5232-9464 ML (25-30 ML/KG) PT PO INTAKE: 100% SNACK PROVIDED. Current Diet Order/ Nutrition Support CCHO 45GM, PUREED Pertinent Medications MAALOX (PRN), ALBUTEROL (PRN), LIPITOR, COREG, COLACE, GLUCAGON (PRN), LANTUS, SYNTHROID, INS-SS, COZAAR, MOM (PRN), THEREGRAN, SENNA, FLEET ENEMA (PRN), VIT B COMLPEX WITH VIT C Pertinent Labs 01/10: NA 131, GLUCOSE 363 POC GLUCOSE (LAST 24 HOURS): 257, 250 Nutritional Hx/Data Height 1.75 m Height (Calculated Centimeters) 175.3 Current Weight (lbs) 140.614 kg Weight (Calculated Kilograms) 140.6 Weight (Calculated Grams) 443166.6 [place] Body Weight 145 % [place] Body Weight 214 Body Mass Index (BMI) 45.8 Weight Status Morbidly Obese GI Symptoms GI Symptoms None Last BM NOT NOTED Skin Integrity/Comment: SKIN BREAKDOWN TO BUTTOCKS AREA LUIS: NOT NOTED Current %PO Good (75-100%) Estimated Nutritional Goals BEE in Kcals: Adj wt of IBW Calories/Kcals/Kg 20-25 Kcals Calculated 6112-5765 Protein: Adj wt of IBW Protein g/k.8-1.0 Protein Calculated 68-85 Fluid: ml 0684-5820 ML (25-30 ML/KG) Nutritional Problem 1. Problem Problem ALTERED NUTRITION RELATED LABS Etiology R/T ENDOCRINE DYSFUNCTION Signs/Symptoms: AEB HX DM AND GLUCOSE 363 Malnutrition Related to Morbid Obesity Malnutrition related to morbid obesity Weight 200% of ideal wt Query Text:(Any 1 Criteria met) Malnutrition related to morbid obesity Yes Intervention/Recommendation Comments 1. CONTINUE WITH [facility] [place] 45GM, PUREED DIET ORDERED. 2. CONTNIUE ANTIHYPERGLYCEMIC MEDICATION FOR GLUCOSE CONTROL PER MD ORDER. Expected Outcomes/Goals Expected Outcomes/Goals 1. PO INTAKE TO MEET 75% OF NUTRITIONAL NEEDS. 2. MONITOR PO INTAKE, WT, NUTRITION RELATED LABS AND SKIN INTEGRITY. 3. F/U LOW RISK IN 7 DAYS, 01/18
[2019-02-03] MEDS: Atorvastatin Calcium 10 MG TAB PO SCH (21:30)
[2019-02-03] MEDS: Insulin Glargine 100 units/ml 10ml Vial SUBQ SCH (21:30)
[2019-02-04] MEDS: APAP/Oxycodone 5/325mg Tab PO PRN ×2 (03:05→21:27)
[2019-02-04] MEDS: INSULIN LISPRO SLIDING SCALE 100 UNITS/ML UNIT SUBQ SCH ×4 (06:43→21:24)
[2019-02-04] MEDS: Levothyroxine 0.075 Mg Tab PO SCH (06:45)
[2019-02-04] MEDS: Multivitamin Tab PO SCH (09:14)
[2019-02-04] MEDS: Vitamin B Complex w/Vitamin C Tab PO SCH (09:16)
[2019-02-04] MEDS: Haldol Oral Sol.(concentrate) 10 mg/5 mL Udc PO SCH ×2 (09:17→16:19)
[2019-02-04] MEDS: Fluticasone Propionate Nasal 1 SPR SPR NS SCH (09:18)
--- NOTE | 2019-02-04 10:03 | Progress Notes ---
DATE: 02/04/2019 SUBJECTIVE: Chart was reviewed and the patient interviewed. Also discussed the patient's condition with the staff and reviewed records and labs. The patient remains anxious and in irritable mood and demanding, but less than before. The patient also is still having episodes of anger, but no major behavior problems. She also is still depressed and guarded and withdrawn. Slightly paranoid, but not concentrating on what she thinks is a person raping her." ASSESSMENT: The patient is still depressed and also needs placement and slightly psychotic. TREATMENT PLAN: Continue monitoring her behavior and her condition closely. Also, continue adjusting psychotropic medications and followup. Also, working with protective services case worker in regard to discharge plans and placement issue. [facility]# [id number]
--- NOTE | 2019-02-04 19:47 | Internal Medicine Prog Note ---
Internal Medicine Subjective - Subjective Service Date: 02/04/19 Patient seen and examined:: with staff (SHE FEELS WELL) Patient is:: awake, verbal, in bed, talking Per staff patient has:: no adverse event Internal Medicine Objective - Results Result Diagrams: 01/10/19 15:10 01/10/19 15:10 Recent Labs: Laboratory Last Values WBC 8.4 Th/cmm (4.8-10.8) 01/10/19 15:10 RBC 5.16 Mil/cmm (3.80-5.20) 01/10/19 15:10 Hgb 14.9 gm/dL (12-16) 01/10/19 15:10 Hct 44.3 % (41.0-60) 01/10/19 15:10 MCV 85.8 fl (81-100) 01/10/19 15:10 MCH 28.9 pg (27.0-31.0) 01/10/19 15:10 MCHC Differential 33.7 pg (28.0-36.0) 01/10/19 15:10 RDW 12.1 % (11.5-20.0) 01/10/19 15:10 Plt Count 291 Th/cmm (150-400) 01/10/19 15:10 MPV 7.3 fl 01/10/19 15:10 Neutrophils % 59.5 % (40.0-80.0) 01/10/19 15:10 Lymphocytes % 31.2 % (20.0-50.0) 01/10/19 15:10 Monocytes % 5.0 % (2.0-10.0) 01/10/19 15:10 Eosinophils % 4.3 % (0.0-5.0) 01/10/19 15:10 Basophils % 0.0 % (0.0-2.0) 01/10/19 15:10 Sodium 131 mEq/L (136-145) L 01/10/19 15:10 Potassium 4.2 mEq/L (3.5-5.1) 01/10/19 15:10 Chloride 96 mEq/L (98-107) L 01/10/19 15:10 Carbon Dioxide 23.9 mEq/L (21.0-31.0) 01/10/19 15:10 Anion Gap 15.3 (7.0-16.0) 01/10/19 15:10 BUN 18 mg/dL (7-25) 01/10/19 15:10 Creatinine 1.0 mg/dL (0.6-1.2) 01/10/19 15:10 Est GFR ( Amer) TNP 01/10/19 15:10 Est GFR (Non-Af Amer) TNP 01/10/19 15:10 BUN/Creatinine Ratio 18.0 01/10/19 15:10 Glucose 363 mg/dL (70-105) H 01/10/19 15:10 POC Glucose 231 MG/DL (70 - 105) H 01/16/19 16:34 Calcium 9.6 mg/dL (8.6-10.3) 01/10/19 15:10 Total Bilirubin 0.5 mg/dL (0.3-1.0) 01/10/19 15:10 AST 13 U/L (13-39) 01/10/19 15:10 ALT 14 U/L (7-52) 01/10/19 15:10 Alkaline Phosphatase 66 U/L (34-104) 01/10/19 15:10 Troponin I 0.04 ng/mL (0.01-0.05) 01/19/19 22:30 Total Protein 7.1 gm/dL (6.0-8.3) 01/10/19 15:10 Albumin 3.7 gm/dL (3.7-5.3) 01/10/19 15:10 Globulin 3.4 gm/dL 01/10/19 15:10 Albumin/Globulin Ratio 1.1 (1.0-1.8) 01/10/19 15:10 Triglycerides 417 mg/dL (<150) H 01/10/19 15:10 Cholesterol 188 mg/dL (<200) 01/10/19 15:10 LDL Cholesterol Direct 109 mg/dL (75-193) 01/10/19 15:10 HDL Cholesterol 27 mg/dL (23-92) 01/10/19 15:10 TSH 1.76 uIU/ml (0.34-5.60) 01/10/19 15:10 Urine Source CLEAN C 01/14/19 17:00 Urine Color YELLOW 01/14/19 17:00 Urine Clarity CLOUDY (CLEAR) H 01/14/19 17:00 Urine pH 6.5 (4.6 - 8.0) 01/14/19 17:00 Ur Specific [place] <= 1.005 (1.005-1.030) 01/14/19 17:00 Urine Protein NEGATIVE mg/dL (NEGATIVE) 01/14/19 17:00 Urine Glucose (UA) 100 mg/dL (NEGATIVE) H 01/14/19 17:00 Urine Ketones NEGATIVE mg/dL (NEGATIVE) 01/14/19 17:00 Urine Blood SMALL (NEGATIVE) H 01/14/19 17:00 Urine Nitrate NEGATIVE (NEGATIVE) 01/14/19 17:00 Urine Bilirubin NEGATIVE (NEGATIVE) 01/14/19 17:00 Urine Urobilinogen 0.2 E.U./dL (0.2 - 1.0) 01/14/19 17:00 Ur Leukocyte Esterase MODERATE (NEGATIVE) H 01/14/19 17:00 Urine RBC 2-5 /hpf (0-5) 01/14/19 17:00 Urine WBC 6-10 /hpf (0-5) H 01/14/19 17:00 Ur Epithelial Cells FEW /lpf (FEW) 01/14/19 17:00 Urine Bacteria MANY /hpf (NONE SEEN) H 01/14/19 17:00 RPR NONREACTIVE (NONREACTIVE) 01/10/19 15:10 - Physical Exam Vitals and I&O: Vital Signs Temp 98.1 F 02/04/19 15:20 Pulse 65 02/04/19 18:40 Resp 20 02/04/19 18:40 BP 152/70 02/04/19 16:19 Pulse Ox 95 02/04/19 18:40 Intake & Output 02/04/19 02/04/19 02/05/19 06:59 18:59 06:59 Intake Total 360 1200 Balance 360 1200 Intake: Oral 360 1200 Other: # Voids 3 5 # Bowel Movements 2 Stool Characteristics Formed Brown Active Medications: Current Medications Acetaminophen (Tylenol Extra Strength) 500 mg PO Q4H PRN PRN Reason: Pain or Fever >101 Stop: 03/12/19 00:41 Last Admin: 01/21/19 22:32 Dose: 500 mg Al Hydrox/Mg Hydrox/Simethicone (Maalox) 30 ml PO Q4HR PRN PRN Reason: GI DISTRESS Stop: 03/11/19 19:56 Albuterol/Ipratropium (Duoneb Neb) 3 ml HHN Q4H PRN PRN Reason: Wheezing Stop: 03/12/19 00:48 Last Admin: 01/27/19 07:28 Dose: 3 ml Aripiprazole (Abilify) 30 mg PO DAILY [facility]; Protocol Stop: 03/17/19 08:59 Last Admin: 02/04/19 09:15 Dose: 30 mg Aspirin (Ecotrin) 81 mg PO DAILY [facility] Stop: 03/12/19 08:59 Last Admin: 02/04/19 09:16 Dose: 81 mg Atorvastatin Calcium (Lipitor) 20 mg PO HS [facility]; Protocol Stop: 03/12/19 20:59 Last Admin: 02/03/19 21:30 Dose: Not Given Brimonidine Tartrate (Alphagan 0.1% Oph Soln) 1 drop EACH EYE TID [facility] Stop: 03/12/19 08:59 Last Admin: 02/04/19 14:54 Dose: Not Given Carvedilol (Coreg) 12.5 mg PO BID [facility] Stop: 03/21/19 08:59 Last Admin: 02/04/19 16:19 Dose: 12.5 mg Clonazepam (Klonopin) 0.5 mg PO BID [facility]; Protocol Stop: 04/05/19 16:59 Last Admin: 02/04/19 16:18 Dose: 0.5 mg Docusate Sodium (Colace) 100 mg PO BID [facility] Stop: 03/12/19 08:59 Last Admin: 02/04/19 16:19 Dose: Not Given Duloxetine HCl (Cymbalta) 60 mg PO DAILY [facility]; Protocol Stop: 03/13/19 11:59 Last Admin: 02/04/19 09:14 Dose: 60 mg Fluticasone Propionate (Flonase) 1 spr NS DAILY [facility] Stop: 03/12/19 08:59 Last Admin: 02/04/19 09:18 Dose: 1 spr Glucagon (Glucagen) 1 mg IM PRN PRN PRN Reason: BS below 70 Stop: 03/11/19 23:24 Haloperidol Decanoate (Haldol Dec) 50 mg IM QMONTH [facility]; Protocol Stop: 03/17/19 15:59 Last Admin: 01/16/19 16:34 Dose: 50 mg Haloperidol Lactate (Haldol Concentrate 10mg/5ml Susp) 5 mg PO BID [facility]; Protocol Stop: 03/18/19 08:59 Last Admin: 02/04/19 16:19 Dose: 5 mg Hydralazine HCl (Apresoline) 10 mg PO BID [facility] Stop: 03/12/19 08:59 Last Admin: 02/04/19 16:18 Dose: 10 mg Ibuprofen (Motrin) 600 mg PO Q8H PRN PRN Reason: breakthrough pain Stop: 03/12/19 00:35 Last Admin: 01/23/19 12:55 Dose: 600 mg Insulin Glargine (Lantus Insulin) 26 units SUBQ HS [facility] Stop: 03/12/19 20:59 Last Admin: 02/03/19 21:30 Dose: Not Given Insulin Human Lispro (Humalog Insulin Sliding Scale) 0 units SUBQ [facility]; Protocol Stop: 03/11/19 20:59 Last Admin: 02/04/19 16:19 Dose: Not Given Isosorbide Dinitrate (Isordil) 10 mg PO Q8HR [facility] Stop: 03/12/19 04:59 Last Admin: 02/04/19 13:54 Dose: Not Given Latanoprost (Xalatan 0.005% Ophth Soln) 1 drop EACH EYE HS [facility] Stop: 03/12/19 20:59 Last Admin: 02/03/19 21:31 Dose: Not Given Levothyroxine Sodium (Synthroid) 0.075 mg PO QDAC [facility] Stop: 03/12/19 07:29 Last Admin: 02/04/19 06:45 Dose: 0.075 mg Loratadine (Claritin) 10 mg PO DAILY [facility] Stop: 03/12/19 08:59 Last Admin: 02/04/19 09:16 Dose: 10 mg Lorazepam (Ativan) 0.5 mg PO Q4HR PRN; Protocol PRN Reason: Anxiety/Agitation Stop: 02/09/19 19:56 Last Admin: 02/04/19 03:05 Dose: 0.5 mg Losartan Potassium (Cozaar) 50 mg PO DAILY [facility] Stop: 03/12/19 08:59 Last Admin: 02/04/19 09:17 Dose: 50 mg Magnesium Hydroxide (Milk Of Magnesia) 30 ml PO HS PRN PRN Reason: Constipation Multivitamins/Vitamin C (Theragran) 1 tab PO DAILY [facility] Stop: 03/12/19 08:59 Last Admin: 02/04/19 09:14 Dose: 1 tab Naproxen (Naprosyn) 500 mg PO BIDWM [facility] Stop: 03/20/19 17:59 Last Admin: 02/04/19 19:09 Dose: Not Given Nitroglycerin (Nitrostat) 0.4 mg SL Q5MIN PRN PRN Reason: CHEST PAIN Stop: 03/11/19 23:24 Last Admin: 01/19/19 16:46 Dose: 0.4 mg Oxycodone/Acetaminophen (Percocet 5/325mg Oral Tab) 1 tab PO Q8H PRN PRN Reason: severe pain (7-10) Stop: 03/12/19 00:44 Last Admin: 02/04/19 03:05 Dose: 1 tab Senna (Senna) 17.2 mg PO HS [facility] Stop: 03/12/19 20:59 Last Admin: 02/03/19 21:32 Dose: Not Given Sodium Phosphate (Fleet Enema) 135 ml RC DAILY PRN PRN Reason: Constipation Stop: 03/11/19 23:24 Vitamin B Complex/Vit C/Folic Acid (Vitamin B Complex W/Vitamin C) 1 tab PO DAILY [facility] Stop: 03/12/19 08:59 Last Admin: 02/04/19 09:16 Dose: 1 tab Zolpidem Tartrate (Ambien) 5 mg PO HS PRN PRN Reason: Insomnia Stop: 03/11/19 19:56 Last Admin: 02/02/19 21:48 Dose: 5 mg General: alert HEENT: NC/AT, PERRLA, EOMI, anicteric sclerae, throat clear Neck: Supple, No JVD, No thyromegaly, +2 carotid pulse wo bruit, No LAD Lungs: CTAB Cardiovascular: RRR, Normal S1, Normal S2, without murmur Abdomen: soft, non-tender, non-distended Extremities: clear Neurological: no change Internal Medicine Assmt/Plan - Assessment Assessment: 1.DM. 2.HTN. 3.HYPOTHYROIDISM. 5.PSYCHOSIS - Plan Plan: CONTINUE ON CURRENT MEDICATION AND DIET. Nutritional Asmnt/Malnutr-PDOC - Dietary Evaluation Malnutrition Findings (Please click <Entered> for more info): Nutritional Asmnt/Malnutrition Start: 01/11/19 12: 41 Text: Status: Complete Freq: Protocol: Document 01/11/19 12:41 AXEL (Rec: 01/11/19 12:45 [email or web address] [email or web address]) Nutritional Asmnt/Malnutrition Patient General Information Nutritional Screening Consult Diagnosis PSYCHOSIS Pertinent Medical Hx/Surgical Hx HTN, DM, HYPOTHYROIDISM, PSYCHOSIS, DJD Subjective Information IA CONSULT: DM PT IS A 78 YEAR OLD FEMALE [facility] AD[facility] ON [facility] D/T AGGRESSIVE BEHAVIOR. PT WAS HERE RECENTLY, DISCHARGED ON . PER MEAL/NUTRITION ACTIVITY RECORD, PT TYPICALLY ATE 100% MEALS. HT: 59 WT: 310 LB (141 KG) ABW: 186 LB (84.66 KG) BMI: 45.78 (OBESE III) GI: WNL, NON-TENDER, LARGE, ROUND BM: NOT NOTED I/O: 240/NOT NOTED SKIN: SKIN BREAKDOWN TO BUTTOCKS AREA LUIS: NOT NOTED DIET ORDER: CCHO 45GM, PUREED ESTIMATED ENERGY NEEDS: (OBESE III, ABW) 3145-6415 KCALS (20-25 KCALS/ KG) 68-85 G PRO (0.8-1.0 G/KG) 0319-8169 ML (25-30 ML/KG) PT PO INTAKE: 100% SNACK PROVIDED. Current Diet Order/ Nutrition Support CCHO 45GM, PUREED Pertinent Medications MAALOX (PRN), ALBUTEROL (PRN), LIPITOR, COREG, COLACE, GLUCAGON (PRN), LANTUS, SYNTHROID, INS-SS, COZAAR, MOM (PRN), THEREGRAN, SENNA, FLEET ENEMA (PRN), VIT B COMLPEX WITH VIT C Pertinent Labs 01/10: NA 131, GLUCOSE 363 POC GLUCOSE (LAST 24 HOURS): 257, 250 Nutritional Hx/Data Height 1.75 m Height (Calculated Centimeters) 175.3 Current Weight (lbs) 140.614 kg Weight (Calculated Kilograms) 140.6 Weight (Calculated Grams) 130565.6 Mystic Body Weight 145 % Mystic Body Weight 214 Body Mass Index (BMI) 45.8 Weight Status Morbidly Obese GI Symptoms GI Symptoms None Last BM NOT NOTED Skin Integrity/Comment: SKIN BREAKDOWN TO BUTTOCKS AREA LUIS: NOT NOTED Current %PO Good (75-100%) Estimated Nutritional Goals BEE in Kcals: Adj wt of IBW Calories/Kcals/Kg 20-25 Kcals Calculated 7448-6959 Protein: Adj wt of IBW Protein g/k.8-1.0 Protein Calculated 68-85 Fluid: ml 3929-4057 ML (25-30 ML/KG) Nutritional Problem 1. Problem Problem ALTERED NUTRITION RELATED LABS Etiology R/T ENDOCRINE DYSFUNCTION Signs/Symptoms: AEB HX DM AND GLUCOSE 363 Malnutrition Related to Morbid Obesity Malnutrition related to morbid obesity Weight 200% of ideal wt Query Text:(Any 1 Criteria met) Malnutrition related to morbid obesity Yes Intervention/Recommendation Comments 1. CONTINUE WITH [facility] [place] 45GM, PUREED DIET ORDERED. 2. CONTNIUE ANTIHYPERGLYCEMIC MEDICATION FOR GLUCOSE CONTROL PER MD ORDER. Expected Outcomes/Goals Expected Outcomes/Goals 1. PO INTAKE TO MEET 75% OF NUTRITIONAL NEEDS. 2. MONITOR PO INTAKE, WT, NUTRITION RELATED LABS AND SKIN INTEGRITY. 3. F/U LOW RISK IN 7 DAYS, 01/18
[2019-02-04] MEDS: Atorvastatin Calcium 10 MG TAB PO SCH (21:25)
[2019-02-04] MEDS: Insulin Glargine 100 units/ml 10ml Vial SUBQ SCH (21:26)
[2019-02-05] MEDS: INSULIN LISPRO SLIDING SCALE 100 UNITS/ML UNIT SUBQ SCH ×4 (06:40→21:21)
[2019-02-05] MEDS: Levothyroxine 0.075 Mg Tab PO SCH (06:41)
[2019-02-05] MEDS: APAP/Oxycodone 5/325mg Tab PO PRN ×2 (08:40→17:30)
[2019-02-05] MEDS: Vitamin B Complex w/Vitamin C Tab PO SCH (08:40)
[2019-02-05] MEDS: Multivitamin Tab PO SCH (08:42)
[2019-02-05] MEDS: Haldol Oral Sol.(concentrate) 10 mg/5 mL Udc PO SCH ×2 (08:43→17:23)
[2019-02-05] MEDS: Fluticasone Propionate Nasal 1 SPR SPR NS SCH (08:43)
[2019-02-05] MEDS: Acetaminophen 500 MG TAB PO PRN (17:45)
--- NOTE | 2019-02-05 20:40 | Progress Notes ---
DATE: 02/05/[address] Velazquez. Case was discussed with staff of the patient, reviewed records. 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 The patient continues to be irritable, anxious, demanding, but somewhat better, continues to have episodes of anger. She is sleeping better, eating better. Sometimes, paranoid. She is working on placement. No side effects with the medication. No sedation, no nausea, no extrapyramidal symptoms. We will continue outpatient group therapy, milieu therapy, and adjust her medication as needed. JOB# [id number]
[2019-02-05] MEDS: Insulin Glargine 100 units/ml 10ml Vial SUBQ SCH (21:22)
[2019-02-05] MEDS: Atorvastatin Calcium 10 MG TAB PO SCH (21:22)
--- NOTE | 2019-02-05 21:46 | Internal Medicine Prog Note ---
Internal Medicine Subjective - Subjective Service Date: 02/05/19 Patient seen and examined:: with staff (SHE DENIES CHEST PAIN) Patient is:: awake, verbal, in bed, talking Per staff patient has:: no adverse event Internal Medicine Objective - Results Result Diagrams: 01/10/19 15:10 01/10/19 15:10 Recent Labs: Laboratory Last Values WBC 8.4 Th/cmm (4.8-10.8) 01/10/19 15:10 RBC 5.16 Mil/cmm (3.80-5.20) 01/10/19 15:10 Hgb 14.9 gm/dL (12-16) 01/10/19 15:10 Hct 44.3 % (41.0-60) 01/10/19 15:10 MCV 85.8 fl (81-100) 01/10/19 15:10 MCH 28.9 pg (27.0-31.0) 01/10/19 15:10 MCHC Differential 33.7 pg (28.0-36.0) 01/10/19 15:10 RDW 12.1 % (11.5-20.0) 01/10/19 15:10 Plt Count 291 Th/cmm (150-400) 01/10/19 15:10 MPV 7.3 fl 01/10/19 15:10 Neutrophils % 59.5 % (40.0-80.0) 01/10/19 15:10 Lymphocytes % 31.2 % (20.0-50.0) 01/10/19 15:10 Monocytes % 5.0 % (2.0-10.0) 01/10/19 15:10 Eosinophils % 4.3 % (0.0-5.0) 01/10/19 15:10 Basophils % 0.0 % (0.0-2.0) 01/10/19 15:10 Sodium 131 mEq/L (136-145) L 01/10/19 15:10 Potassium 4.2 mEq/L (3.5-5.1) 01/10/19 15:10 Chloride 96 mEq/L (98-107) L 01/10/19 15:10 Carbon Dioxide 23.9 mEq/L (21.0-31.0) 01/10/19 15:10 Anion Gap 15.3 (7.0-16.0) 01/10/19 15:10 BUN 18 mg/dL (7-25) 01/10/19 15:10 Creatinine 1.0 mg/dL (0.6-1.2) 01/10/19 15:10 Est GFR ( Amer) TNP 01/10/19 15:10 Est GFR (Non-Af Amer) TNP 01/10/19 15:10 BUN/Creatinine Ratio 18.0 01/10/19 15:10 Glucose 363 mg/dL (70-105) H 01/10/19 15:10 POC Glucose 231 MG/DL (70 - 105) H 01/16/19 16:34 Calcium 9.6 mg/dL (8.6-10.3) 01/10/19 15:10 Total Bilirubin 0.5 mg/dL (0.3-1.0) 01/10/19 15:10 AST 13 U/L (13-39) 01/10/19 15:10 ALT 14 U/L (7-52) 01/10/19 15:10 Alkaline Phosphatase 66 U/L (34-104) 01/10/19 15:10 Troponin I 0.04 ng/mL (0.01-0.05) 01/19/19 22:30 Total Protein 7.1 gm/dL (6.0-8.3) 01/10/19 15:10 Albumin 3.7 gm/dL (3.7-5.3) 01/10/19 15:10 Globulin 3.4 gm/dL 01/10/19 15:10 Albumin/Globulin Ratio 1.1 (1.0-1.8) 01/10/19 15:10 Triglycerides 417 mg/dL (<150) H 01/10/19 15:10 Cholesterol 188 mg/dL (<200) 01/10/19 15:10 LDL Cholesterol Direct 109 mg/dL (75-193) 01/10/19 15:10 HDL Cholesterol 27 mg/dL (23-92) 01/10/19 15:10 TSH 1.76 uIU/ml (0.34-5.60) 01/10/19 15:10 Urine Source CLEAN C 01/14/19 17:00 Urine Color YELLOW 01/14/19 17:00 Urine Clarity CLOUDY (CLEAR) H 01/14/19 17:00 Urine pH 6.5 (4.6 - 8.0) 01/14/19 17:00 Ur Specific [place] <= 1.005 (1.005-1.030) 01/14/19 17:00 Urine Protein NEGATIVE mg/dL (NEGATIVE) 01/14/19 17:00 Urine Glucose (UA) 100 mg/dL (NEGATIVE) H 01/14/19 17:00 Urine Ketones NEGATIVE mg/dL (NEGATIVE) 01/14/19 17:00 Urine Blood SMALL (NEGATIVE) H 01/14/19 17:00 Urine Nitrate NEGATIVE (NEGATIVE) 01/14/19 17:00 Urine Bilirubin NEGATIVE (NEGATIVE) 01/14/19 17:00 Urine Urobilinogen 0.2 E.U./dL (0.2 - 1.0) 01/14/19 17:00 Ur Leukocyte Esterase MODERATE (NEGATIVE) H 01/14/19 17:00 Urine RBC 2-5 /hpf (0-5) 01/14/19 17:00 Urine WBC 6-10 /hpf (0-5) H 01/14/19 17:00 Ur Epithelial Cells FEW /lpf (FEW) 01/14/19 17:00 Urine Bacteria MANY /hpf (NONE SEEN) H 01/14/19 17:00 RPR NONREACTIVE (NONREACTIVE) 01/10/19 15:10 - Physical Exam Vitals and I&O: Vital Signs Temp 98.9 F 02/05/19 20:06 Pulse 58 02/05/19 21:23 Resp 20 02/05/19 20:06 BP 152/62 02/05/19 21:23 Pulse Ox 99 02/05/19 20:06 Intake & Output 02/05/19 02/05/19 02/06/19 06:59 18:59 06:59 Intake Total 240 240 Balance 240 240 Intake: Oral 240 240 Other: # Voids 3 2 # Bowel Movements 0 0 Stool Characteristics Formed Brown Active Medications: Current Medications Acetaminophen (Tylenol Extra Strength) 500 mg PO Q4H PRN PRN Reason: Pain or Fever >101 Stop: 03/12/19 00:41 Last Admin: 02/05/19 17:45 Dose: 500 mg Al Hydrox/Mg Hydrox/Simethicone (Maalox) 30 ml PO Q4HR PRN PRN Reason: GI DISTRESS Stop: 03/11/19 19:56 Albuterol/Ipratropium (Duoneb Neb) 3 ml HHN Q4H PRN PRN Reason: Wheezing Stop: 03/12/19 00:48 Last Admin: 01/27/19 07:28 Dose: 3 ml Aripiprazole (Abilify) 30 mg PO DAILY [facility]; Protocol Stop: 03/17/19 08:59 Last Admin: 02/05/19 08:40 Dose: 30 mg Aspirin (Ecotrin) 81 mg PO DAILY [facility] Stop: 03/12/19 08:59 Last Admin: 02/05/19 08:42 Dose: 81 mg Atorvastatin Calcium (Lipitor) 20 mg PO HS [facility]; Protocol Stop: 03/12/19 20:59 Last Admin: 02/05/19 21:22 Dose: 20 mg Brimonidine Tartrate (Alphagan 0.1% Oph Soln) 1 drop EACH EYE TID [facility] Stop: 03/12/19 08:59 Last Admin: 02/05/19 21:22 Dose: 1 drop Carvedilol (Coreg) 12.5 mg PO BID [facility] Stop: 03/21/19 08:59 Last Admin: 02/05/19 17:22 Dose: 12.5 mg Clonazepam (Klonopin) 0.5 mg PO BID [facility]; Protocol Stop: 04/05/19 16:59 Last Admin: 02/05/19 17:21 Dose: 0.5 mg Docusate Sodium (Colace) 100 mg PO BID [facility] Stop: 03/12/19 08:59 Last Admin: 02/05/19 17:21 Dose: 100 mg Duloxetine HCl (Cymbalta) 60 mg PO DAILY [facility]; Protocol Stop: 03/13/19 11:59 Last Admin: 02/05/19 08:41 Dose: 60 mg Fluticasone Propionate (Flonase) 1 spr NS DAILY [facility] Stop: 03/12/19 08:59 Last Admin: 02/05/19 08:43 Dose: 1 spr Glucagon (Glucagen) 1 mg IM PRN PRN PRN Reason: BS below 70 Stop: 03/11/19 23:24 Haloperidol Decanoate (Haldol Dec) 50 mg IM QMONTH [facility]; Protocol Stop: 03/17/19 15:59 Last Admin: 01/16/19 16:34 Dose: 50 mg Haloperidol Lactate (Haldol Concentrate 10mg/5ml Susp) 5 mg PO BID [facility]; Protocol Stop: 03/18/19 08:59 Last Admin: 02/05/19 17:23 Dose: 5 mg Hydralazine HCl (Apresoline) 10 mg PO BID [facility] Stop: 03/12/19 08:59 Last Admin: 02/05/19 17:22 Dose: 10 mg Ibuprofen (Motrin) 600 mg PO Q8H PRN PRN Reason: breakthrough pain Stop: 03/12/19 00:35 Last Admin: 01/23/19 12:55 Dose: 600 mg Insulin Glargine (Lantus Insulin) 26 units SUBQ HS [facility] Stop: 03/12/19 20:59 Last Admin: 02/05/19 21:22 Dose: 26 units Insulin Human Lispro (Humalog Insulin Sliding Scale) 0 units SUBQ [facility]; Protocol Stop: 03/11/19 20:59 Last Admin: 02/05/19 21:21 Dose: 2 units Isosorbide Dinitrate (Isordil) 10 mg PO Q8HR [facility] Stop: 03/12/19 04:59 Last Admin: 02/05/19 21:23 Dose: 10 mg Latanoprost (Xalatan 0.005% Oph Soln) 1 drop EACH EYE HS [facility] Stop: 03/12/19 20:59 Last Admin: 02/05/19 21:24 Dose: 1 drop Levothyroxine Sodium (Synthroid) 0.075 mg PO QDAC [facility] Stop: 03/12/19 07:29 Last Admin: 02/05/19 06:41 Dose: 0.075 mg Loratadine (Claritin) 10 mg PO DAILY [facility] Stop: 03/12/19 08:59 Last Admin: 02/05/19 08:41 Dose: 10 mg Lorazepam (Ativan) 0.5 mg PO Q4HR PRN; Protocol PRN Reason: Anxiety/Agitation Stop: 02/09/19 19:56 Last Admin: 02/05/19 21:25 Dose: 0.5 mg Losartan Potassium (Cozaar) 50 mg PO DAILY [facility] Stop: 03/12/19 08:59 Last Admin: 02/05/19 08:41 Dose: 50 mg Magnesium Hydroxide (Milk Of Magnesia) 30 ml PO HS PRN PRN Reason: Constipation Multivitamins/Vitamin C (Theragran) 1 tab PO DAILY [facility] Stop: 03/12/19 08:59 Last Admin: 02/05/19 08:42 Dose: 1 tab Naproxen (Naprosyn) 500 mg PO BIDWM [facility] Stop: 03/20/19 17:59 Last Admin: 02/05/19 17:22 Dose: 500 mg Nitroglycerin (Nitrostat) 0.4 mg SL Q5MIN PRN PRN Reason: CHEST PAIN Stop: 03/11/19 23:24 Last Admin: 01/19/19 16:46 Dose: 0.4 mg Oxycodone/Acetaminophen (Percocet 5/325mg Oral Tab) 1 tab PO Q8H PRN PRN Reason: severe pain (7-10) Stop: 03/12/19 00:44 Last Admin: 02/05/19 17:30 Dose: 1 tab Senna (Senna) 17.2 mg PO HS [facility] Stop: 03/12/19 20:59 Last Admin: 02/05/19 21:24 Dose: 17.2 mg Sodium Phosphate (Fleet Enema) 135 ml RC DAILY PRN PRN Reason: Constipation Stop: 03/11/19 23:24 Vitamin B Complex/Vit C/Folic Acid (Vitamin B Complex W/Vitamin C) 1 tab PO DAILY [facility] Stop: 03/12/19 08:59 Last Admin: 02/05/19 08:40 Dose: 1 tab Zolpidem Tartrate (Ambien) 5 mg PO HS PRN PRN Reason: Insomnia Stop: 03/11/19 19:56 Last Admin: 02/05/19 21:25 Dose: 5 mg General: alert HEENT: NC/AT, PERRLA, EOMI, anicteric sclerae, throat clear Neck: Supple, No JVD, No thyromegaly, +2 carotid pulse wo bruit, No LAD Lungs: CTAB Cardiovascular: RRR, Normal S1, Normal S2, without murmur Abdomen: soft, non-tender, non-distended Extremities: clear Neurological: no change Internal Medicine Assmt/Plan - Assessment Assessment: 1.DM. 2.HTN. 3.HYPOTHYROIDISM. 5.PSYCHOSIS - Plan Plan: CONTINUE ON CURRENT MEDICATION AND DIET. Nutritional Asmnt/Malnutr-PDOC - Dietary Evaluation Malnutrition Findings (Please click <Entered> for more info): Nutritional Asmnt/Malnutrition Start: 01/11/19 12: 41 Text: Status: Complete Freq: Protocol: Document 01/11/19 12:41 AXEL (Rec: 01/11/19 12:45 [email or web address] [email or web address]) Nutritional Asmnt/Malnutrition Patient General Information Nutritional Screening Consult Diagnosis PSYCHOSIS Pertinent Medical Hx/Surgical Hx HTN, DM, HYPOTHYROIDISM, PSYCHOSIS, DJD Subjective Information IA CONSULT: DM PT IS A 78 YEAR OLD FEMALE [facility] ON [facility] D/T AGGRESSIVE BEHAVIOR. PT WAS HERE RECENTLY, DISCHARGED ON . PER MEAL/NUTRITION ACTIVITY RECORD, PT TYPICALLY ATE 100% MEALS. HT: 59 WT: 310 LB (141 KG) ABW: 186 LB (84.66 KG) BMI: 45.78 (OBESE III) GI: WNL, NON-TENDER, LARGE, ROUND BM: NOT NOTED I/O: 240/NOT NOTED SKIN: SKIN BREAKDOWN TO BUTTOCKS AREA LUIS: NOT NOTED DIET ORDER: CCHO 45GM, PUREED ESTIMATED ENERGY NEEDS: (OBESE III, ABW) 6013-6032 KCALS (20-25 KCALS/ KG) 68-85 G PRO (0.8-1.0 G/KG) 5864-5151 ML (25-30 ML/KG) PT PO INTAKE: 100% SNACK PROVIDED. Current Diet Order/ Nutrition Support CCHO 45GM, PUREED Pertinent Medications MAALOX (PRN), ALBUTEROL (PRN), LIPITOR, COREG, COLACE, GLUCAGON (PRN), LANTUS, SYNTHROID, INS-SS, COZAAR, MOM (PRN), THEREGRAN, SENNA, FLEET ENEMA (PRN), VIT B COMLPEX WITH VIT C Pertinent Labs 01/10: NA 131, GLUCOSE 363 POC GLUCOSE (LAST 24 HOURS): 257, 250 Nutritional Hx/Data Height 1.75 m Height (Calculated Centimeters) 175.3 Current Weight (lbs) 140.614 kg Weight (Calculated Kilograms) 140.6 Weight (Calculated Grams) 577535.6 [place] Body Weight 145 % [place] Body Weight 214 Body Mass Index (BMI) 45.8 Weight Status Morbidly Obese GI Symptoms GI Symptoms None Last BM NOT NOTED Skin Integrity/Comment: SKIN BREAKDOWN TO BUTTOCKS AREA LUIS: NOT NOTED Current %PO Good (75-100%) Estimated Nutritional Goals BEE in Kcals: Adj wt of IBW Calories/Kcals/Kg 20-25 Kcals Calculated 5695-8492 Protein: Adj wt of IBW Protein g/k.8-1.0 Protein Calculated 68-85 Fluid: ml 8771-8088 ML (25-30 ML/KG) Nutritional Problem 1. Problem Problem ALTERED NUTRITION RELATED LABS Etiology R/T ENDOCRINE DYSFUNCTION Signs/Symptoms: AEB HX DM AND GLUCOSE 363 Malnutrition Related to Morbid Obesity Malnutrition related to morbid obesity Weight 200% of ideal wt Query Text:(Any 1 Criteria met) Malnutrition related to morbid obesity Yes Intervention/Recommendation Comments 1. CONTINUE WITH [facility] 45GM, PUREED DIET ORDERED. 2. CONTNIUE ANTIHYPERGLYCEMIC MEDICATION FOR GLUCOSE CONTROL PER MD ORDER. Expected Outcomes/Goals Expected Outcomes/Goals 1. PO INTAKE TO MEET 75% OF NUTRITIONAL NEEDS. 2. MONITOR PO INTAKE, WT, NUTRITION RELATED LABS AND SKIN INTEGRITY. 3. F/U LOW RISK IN 7 DAYS, 01/18
[2019-02-06] MEDS: APAP/Oxycodone 5/325mg Tab PO PRN ×2 (05:01→13:00)
[2019-02-06] MEDS: INSULIN LISPRO SLIDING SCALE 100 UNITS/ML UNIT SUBQ SCH ×4 (06:40→20:40)
[2019-02-06] MEDS: Levothyroxine 0.075 Mg Tab PO SCH (06:40)
[2019-02-06] MEDS: Vitamin B Complex w/Vitamin C Tab PO SCH (09:45)
[2019-02-06] MEDS: Multivitamin Tab PO SCH (09:45)
[2019-02-06] MEDS: Fluticasone Propionate Nasal 1 SPR SPR NS SCH (09:45)
[2019-02-06] MEDS: Haldol Oral Sol.(concentrate) 10 mg/5 mL Udc PO SCH ×2 (09:45→17:24)
[2019-02-06] MEDS: Insulin Glargine 100 units/ml 10ml Vial SUBQ SCH ×2 (20:47→21:00)
--- NOTE | 2019-02-06 20:47 | Internal Medicine Prog Note ---
Internal Medicine Subjective - Subjective Service Date: 02/06/19 Patient seen and examined:: with staff (SHE FEELS BETTER) Patient is:: awake, verbal, in bed, talking Per staff patient has:: no adverse event Internal Medicine Objective - Results Result Diagrams: 01/10/19 15:10 01/10/19 15:10 Recent Labs: Laboratory Last Values WBC 8.4 Th/cmm (4.8-10.8) 01/10/19 15:10 RBC 5.16 Mil/cmm (3.80-5.20) 01/10/19 15:10 Hgb 14.9 gm/dL (12-16) 01/10/19 15:10 Hct 44.3 % (41.0-60) 01/10/19 15:10 MCV 85.8 fl (81-100) 01/10/19 15:10 MCH 28.9 pg (27.0-31.0) 01/10/19 15:10 MCHC Differential 33.7 pg (28.0-36.0) 01/10/19 15:10 RDW 12.1 % (11.5-20.0) 01/10/19 15:10 Plt Count 291 Th/cmm (150-400) 01/10/19 15:10 MPV 7.3 fl 01/10/19 15:10 Neutrophils % 59.5 % (40.0-80.0) 01/10/19 15:10 Lymphocytes % 31.2 % (20.0-50.0) 01/10/19 15:10 Monocytes % 5.0 % (2.0-10.0) 01/10/19 15:10 Eosinophils % 4.3 % (0.0-5.0) 01/10/19 15:10 Basophils % 0.0 % (0.0-2.0) 01/10/19 15:10 Sodium 131 mEq/L (136-145) L 01/10/19 15:10 Potassium 4.2 mEq/L (3.5-5.1) 01/10/19 15:10 Chloride 96 mEq/L (98-107) L 01/10/19 15:10 Carbon Dioxide 23.9 mEq/L (21.0-31.0) 01/10/19 15:10 Anion Gap 15.3 (7.0-16.0) 01/10/19 15:10 BUN 18 mg/dL (7-25) 01/10/19 15:10 Creatinine 1.0 mg/dL (0.6-1.2) 01/10/19 15:10 Est GFR ( Amer) TNP 01/10/19 15:10 Est GFR (Non-Af Amer) TNP 01/10/19 15:10 BUN/Creatinine Ratio 18.0 01/10/19 15:10 Glucose 363 mg/dL (70-105) H 01/10/19 15:10 POC Glucose 231 MG/DL (70 - 105) H 01/16/19 16:34 Calcium 9.6 mg/dL (8.6-10.3) 01/10/19 15:10 Total Bilirubin 0.5 mg/dL (0.3-1.0) 01/10/19 15:10 AST 13 U/L (13-39) 01/10/19 15:10 ALT 14 U/L (7-52) 01/10/19 15:10 Alkaline Phosphatase 66 U/L (34-104) 01/10/19 15:10 Troponin I 0.04 ng/mL (0.01-0.05) 01/19/19 22:30 Total Protein 7.1 gm/dL (6.0-8.3) 01/10/19 15:10 Albumin 3.7 gm/dL (3.7-5.3) 01/10/19 15:10 Globulin 3.4 gm/dL 01/10/19 15:10 Albumin/Globulin Ratio 1.1 (1.0-1.8) 01/10/19 15:10 Triglycerides 417 mg/dL (<150) H 01/10/19 15:10 Cholesterol 188 mg/dL (<200) 01/10/19 15:10 LDL Cholesterol Direct 109 mg/dL (75-193) 01/10/19 15:10 HDL Cholesterol 27 mg/dL (23-92) 01/10/19 15:10 TSH 1.76 uIU/ml (0.34-5.60) 01/10/19 15:10 Urine Source CLEAN C 01/14/19 17:00 Urine Color YELLOW 01/14/19 17:00 Urine Clarity CLOUDY (CLEAR) H 01/14/19 17:00 Urine pH 6.5 (4.6 - 8.0) 01/14/19 17:00 Ur Specific [place] <= 1.005 (1.005-1.030) 01/14/19 17:00 Urine Protein NEGATIVE mg/dL (NEGATIVE) 01/14/19 17:00 Urine Glucose (UA) 100 mg/dL (NEGATIVE) H 01/14/19 17:00 Urine Ketones NEGATIVE mg/dL (NEGATIVE) 01/14/19 17:00 Urine Blood SMALL (NEGATIVE) H 01/14/19 17:00 Urine Nitrate NEGATIVE (NEGATIVE) 01/14/19 17:00 Urine Bilirubin NEGATIVE (NEGATIVE) 01/14/19 17:00 Urine Urobilinogen 0.2 E.U./dL (0.2 - 1.0) 01/14/19 17:00 Ur Leukocyte Esterase MODERATE (NEGATIVE) H 01/14/19 17:00 Urine RBC 2-5 /hpf (0-5) 01/14/19 17:00 Urine WBC 6-10 /hpf (0-5) H 01/14/19 17:00 Ur Epithelial Cells FEW /lpf (FEW) 01/14/19 17:00 Urine Bacteria MANY /hpf (NONE SEEN) H 01/14/19 17:00 RPR NONREACTIVE (NONREACTIVE) 01/10/19 15:10 - Physical Exam Vitals and I&O: Vital Signs Temp 99.2 F 02/06/19 20:34 Pulse 59 02/06/19 20:34 Resp 19 02/06/19 20:34 BP 131/59 02/06/19 20:34 Pulse Ox 95 02/06/19 20:34 Intake & Output 02/06/19 02/06/19 02/07/19 06:59 18:59 06:59 Intake Total 240 900 120 Balance 240 900 120 Intake: Oral 240 900 120 Other: # Voids 3 3 2 # Bowel Movements 0 0 0 Active Medications: Current Medications Acetaminophen (Tylenol Extra Strength) 500 mg PO Q4H PRN PRN Reason: Pain or Fever >101 Stop: 03/12/19 00:41 Last Admin: 02/05/19 17:45 Dose: 500 mg Al Hydrox/Mg Hydrox/Simethicone (Maalox) 30 ml PO Q4HR PRN PRN Reason: GI DISTRESS Stop: 03/11/19 19:56 Albuterol/Ipratropium (Duoneb Neb) 3 ml HHN Q4H PRN PRN Reason: Wheezing Stop: 03/12/19 00:48 Last Admin: 01/27/19 07:28 Dose: 3 ml Aripiprazole (Abilify) 30 mg PO DAILY [facility]; Protocol Stop: 03/17/19 08:59 Last Admin: 02/06/19 09:45 Dose: 30 mg Aspirin (Ecotrin) 81 mg PO DAILY [facility] Stop: 03/12/19 08:59 Last Admin: 02/06/19 09:45 Dose: 81 mg Atorvastatin Calcium (Lipitor) 20 mg PO HS [facility]; Protocol Stop: 03/12/19 20:59 Last Admin: 02/05/19 21:22 Dose: 20 mg Brimonidine Tartrate (Alphagan 0.1% Oph Soln) 1 drop EACH EYE TID [facility] Stop: 03/12/19 08:59 Last Admin: 02/06/19 13:28 Dose: 1 drop Carvedilol (Coreg) 12.5 mg PO BID [facility] Stop: 03/21/19 08:59 Last Admin: 02/06/19 17:23 Dose: 12.5 mg Clonazepam (Klonopin) 0.5 mg PO BID [facility]; Protocol Stop: 04/05/19 16:59 Last Admin: 02/06/19 17:24 Dose: 0.5 mg Docusate Sodium (Colace) 100 mg PO BID [facility] Stop: 03/12/19 08:59 Last Admin: 02/06/19 17:24 Dose: 100 mg Duloxetine HCl (Cymbalta) 60 mg PO DAILY [facility]; Protocol Stop: 03/13/19 11:59 Last Admin: 02/06/19 13:30 Dose: Not Given Fluticasone Propionate (Flonase) 1 spr NS DAILY [facility] Stop: 03/12/19 08:59 Last Admin: 02/06/19 09:45 Dose: 1 spr Glucagon (Glucagen) 1 mg IM PRN PRN PRN Reason: BS below 70 Stop: 03/11/19 23:24 Haloperidol Decanoate (Haldol Dec) 50 mg IM QMONTH [facility]; Protocol Stop: 03/17/19 15:59 Last Admin: 01/16/19 16:34 Dose: 50 mg Haloperidol Lactate (Haldol Concentrate 10mg/5ml Susp) 5 mg PO BID [facility]; Protocol Stop: 03/18/19 08:59 Last Admin: 02/06/19 17:24 Dose: 5 mg Hydralazine HCl (Apresoline) 10 mg PO BID [facility] Stop: 03/12/19 08:59 Last Admin: 02/06/19 17:23 Dose: 10 mg Ibuprofen (Motrin) 600 mg PO Q8H PRN PRN Reason: breakthrough pain Stop: 03/12/19 00:35 Last Admin: 01/23/19 12:55 Dose: 600 mg Insulin Glargine (Lantus Insulin) 26 units SUBQ HS [facility] Stop: 03/12/19 20:59 Last Admin: 02/05/19 21:22 Dose: 26 units Insulin Human Lispro (Humalog Insulin Sliding Scale) 0 units SUBQ [facility]; Protocol Stop: 03/11/19 20:59 Last Admin: 02/06/19 20:40 Dose: Not Given Isosorbide Dinitrate (Isordil) 10 mg PO Q8HR [facility] Stop: 03/12/19 04:59 Last Admin: 02/06/19 13:32 Dose: 10 mg Latanoprost (Xalatan 0.005% Oph Soln) 1 drop EACH EYE HS [facility] Stop: 03/12/19 20:59 Last Admin: 02/05/19 21:24 Dose: 1 drop Levothyroxine Sodium (Synthroid) 0.075 mg PO QDAC [facility] Stop: 03/12/19 07:29 Last Admin: 02/06/19 06:40 Dose: 0.075 mg Loratadine (Claritin) 10 mg PO DAILY [facility] Stop: 03/12/19 08:59 Last Admin: 02/06/19 09:45 Dose: 10 mg Lorazepam (Ativan) 0.5 mg PO Q4HR PRN; Protocol PRN Reason: Anxiety/Agitation Stop: 02/09/19 19:56 Last Admin: 02/05/19 21:25 Dose: 0.5 mg Losartan Potassium (Cozaar) 50 mg PO DAILY [facility] Stop: 03/12/19 08:59 Last Admin: 02/06/19 09:45 Dose: 50 mg Magnesium Hydroxide (Milk Of Magnesia) 30 ml PO HS PRN PRN Reason: Constipation Multivitamins/Vitamin C (Theragran) 1 tab PO DAILY [facility] Stop: 03/12/19 08:59 Last Admin: 02/06/19 09:45 Dose: 1 tab Naproxen (Naprosyn) 500 mg PO BIDWM [facility] Stop: 03/20/19 17:59 Last Admin: 02/06/19 17:23 Dose: 500 mg Nitroglycerin (Nitrostat) 0.4 mg SL Q5MIN PRN PRN Reason: CHEST PAIN Stop: 03/11/19 23:24 Last Admin: 01/19/19 16:46 Dose: 0.4 mg Oxycodone/Acetaminophen (Percocet 5/325mg Oral Tab) 1 tab PO Q8H PRN PRN Reason: severe pain (7-10) Stop: 03/12/19 00:44 Last Admin: 02/06/19 13:00 Dose: 1 tab Senna (Senna) 17.2 mg PO HS [facility] Stop: 03/12/19 20:59 Last Admin: 02/05/19 21:24 Dose: 17.2 mg Sodium Phosphate (Fleet Enema) 135 ml RC DAILY PRN PRN Reason: Constipation Stop: 03/11/19 23:24 Vitamin B Complex/Vit C/Folic Acid (Vitamin B Complex W/Vitamin C) 1 tab PO DAILY [facility] Stop: 03/12/19 08:59 Last Admin: 02/06/19 09:45 Dose: 1 tab Zolpidem Tartrate (Ambien) 5 mg PO HS PRN PRN Reason: Insomnia Stop: 03/11/19 19:56 Last Admin: 02/05/19 21:25 Dose: 5 mg General: alert HEENT: NC/AT, PERRLA, EOMI, anicteric sclerae, throat clear Neck: Supple, No JVD, No thyromegaly, +2 carotid pulse wo bruit, No LAD Lungs: CTAB Cardiovascular: RRR, Normal S1, Normal S2, without murmur Abdomen: soft, non-tender, non-distended Extremities: clear Neurological: no change Internal Medicine Assmt/Plan - Assessment Assessment: 1.DM. 2.HTN. 3.HYPOTHYROIDISM. 5.PSYCHOSIS - Plan Plan: CONTINUE ON CURRENT MEDICATION AND DIET. Nutritional Asmnt/Malnutr-PDOC - Dietary Evaluation Malnutrition Findings (Please click <Entered> for more info): Nutritional Asmnt/Malnutrition Start: 01/11/19 12: 41 Text: Status: Complete Freq: Protocol: Document 01/11/19 12:41 AXEL (Rec: 01/11/19 12:45 [email or web address] [email or web address]) Nutritional Asmnt/Malnutrition Patient General Information Nutritional Screening Consult Diagnosis PSYCHOSIS Pertinent Medical Hx/Surgical Hx HTN, DM, HYPOTHYROIDISM, PSYCHOSIS, DJD Subjective Information IA CONSULT: DM PT IS A 78 YEAR OLD FEMALE [facility] AD[facility]ED ON 01/10 D/T AGGRESSIVE BEHAVIOR. PT WAS HERE RECENTLY, DISCHARGED ON . PER MEAL/NUTRITION ACTIVITY RECORD, PT TYPICALLY ATE 100% MEALS. HT: 59 WT: 310 LB (141 KG) ABW: 186 LB (84.66 KG) BMI: 45.78 (OBESE III) GI: WNL, NON-TENDER, LARGE, ROUND BM: NOT NOTED I/O: 240/NOT NOTED SKIN: SKIN BREAKDOWN TO BUTTOCKS AREA LUIS: NOT NOTED DIET ORDER: CCHO 45GM, PUREED ESTIMATED ENERGY NEEDS: (OBESE III, ABW) 3131-9756 KCALS (20-25 KCALS/ KG) 68-85 G PRO (0.8-1.0 G/KG) 0138-2313 ML (25-30 ML/KG) PT PO INTAKE: 100% SNACK PROVIDED. Current Diet Order/ Nutrition Support CCHO 45GM, PUREED Pertinent Medications MAALOX (PRN), ALBUTEROL (PRN), LIPITOR, COREG, COLACE, GLUCAGON (PRN), LANTUS, SYNTHROID, INS-SS, COZAAR, MOM (PRN), THEREGRAN, SENNA, FLEET ENEMA (PRN), VIT B COMLPEX WITH VIT C Pertinent Labs 01/10: NA 131, GLUCOSE 363 POC GLUCOSE (LAST 24 HOURS): 257, 250 Nutritional Hx/Data Height 1.75 m Height (Calculated Centimeters) 175.3 Current Weight (lbs) 140.614 kg Weight (Calculated Kilograms) 140.6 Weight (Calculated Grams) 823797.6 [place] Body Weight 145 % [place] Body Weight 214 Body Mass Index (BMI) 45.8 Weight Status Morbidly Obese GI Symptoms GI Symptoms None Last BM NOT NOTED Skin Integrity/Comment: SKIN BREAKDOWN TO BUTTOCKS AREA LUIS: NOT NOTED Current %PO Good (75-100%) Estimated Nutritional Goals BEE in Kcals: Adj wt of IBW Calories/Kcals/Kg 20-25 Kcals Calculated [id number] Protein: Adj wt of IBW Protein g/k.8-1.0 Protein Calculated 68-85 Fluid: ml 6355-0533 ML (25-30 ML/KG) Nutritional Problem 1. Problem Problem ALTERED NUTRITION RELATED LABS Etiology R/T ENDOCRINE DYSFUNCTION Signs/Symptoms: AEB HX DM AND GLUCOSE 363 Malnutrition Related to Morbid Obesity Malnutrition related to morbid obesity Weight 200% of ideal wt Query Text:(Any 1 Criteria met) Malnutrition related to morbid obesity Yes Intervention/Recommendation Comments 1. CONTINUE WITH [facility] 45GM, PUREED DIET ORDERED. 2. CONTNIUE ANTIHYPERGLYCEMIC MEDICATION FOR GLUCOSE CONTROL PER MD ORDER. Expected Outcomes/Goals Expected Outcomes/Goals 1. PO INTAKE TO MEET 75% OF NUTRITIONAL NEEDS. 2. MONITOR PO INTAKE, WT, NUTRITION RELATED LABS AND SKIN INTEGRITY. 3. F/U LOW RISK IN 7 DAYS, 01/18
[2019-02-06] MEDS: Atorvastatin Calcium 10 MG TAB PO SCH (21:00)
[2019-02-07] MEDS: Levothyroxine 0.075 Mg Tab PO SCH (06:57)
[2019-02-07] MEDS: INSULIN LISPRO SLIDING SCALE 100 UNITS/ML UNIT SUBQ SCH ×4 (06:57→20:59)
[2019-02-07] MEDS: Haldol Oral Sol.(concentrate) 10 mg/5 mL Udc PO SCH ×2 (09:08→16:45)
[2019-02-07] MEDS: Multivitamin Tab PO SCH (09:09)
[2019-02-07] MEDS: Vitamin B Complex w/Vitamin C Tab PO SCH (09:09)
[2019-02-07] MEDS: Fluticasone Propionate Nasal 1 SPR SPR NS SCH (09:13)
--- NOTE | 2019-02-07 17:24 | Internal Medicine Prog Note ---
Internal Medicine Subjective - Subjective Service Date: 02/07/19 Patient seen and examined:: without staff (SHE FEELS BETTER) Patient is:: awake, verbal, in bed, talking Per staff patient has:: no adverse event Internal Medicine Objective - Results Result Diagrams: 01/10/19 15:10 01/10/19 15:10 Recent Labs: Laboratory Last Values WBC 8.4 Th/cmm (4.8-10.8) 01/10/19 15:10 RBC 5.16 Mil/cmm (3.80-5.20) 01/10/19 15:10 Hgb 14.9 gm/dL (12-16) 01/10/19 15:10 Hct 44.3 % (41.0-60) 01/10/19 15:10 MCV 85.8 fl (81-100) 01/10/19 15:10 MCH 28.9 pg (27.0-31.0) 01/10/19 15:10 MCHC Differential 33.7 pg (28.0-36.0) 01/10/19 15:10 RDW 12.1 % (11.5-20.0) 01/10/19 15:10 Plt Count 291 Th/cmm (150-400) 01/10/19 15:10 MPV 7.3 fl 01/10/19 15:10 Neutrophils % 59.5 % (40.0-80.0) 01/10/19 15:10 Lymphocytes % 31.2 % (20.0-50.0) 01/10/19 15:10 Monocytes % 5.0 % (2.0-10.0) 01/10/19 15:10 Eosinophils % 4.3 % (0.0-5.0) 01/10/19 15:10 Basophils % 0.0 % (0.0-2.0) 01/10/19 15:10 Sodium 131 mEq/L (136-145) L 01/10/19 15:10 Potassium 4.2 mEq/L (3.5-5.1) 01/10/19 15:10 Chloride 96 mEq/L (98-107) L 01/10/19 15:10 Carbon Dioxide 23.9 mEq/L (21.0-31.0) 01/10/19 15:10 Anion Gap 15.3 (7.0-16.0) 01/10/19 15:10 BUN 18 mg/dL (7-25) 01/10/19 15:10 Creatinine 1.0 mg/dL (0.6-1.2) 01/10/19 15:10 Est GFR ( Amer) TNP 01/10/19 15:10 Est GFR (Non-Af Amer) TNP 01/10/19 15:10 BUN/Creatinine Ratio 18.0 01/10/19 15:10 Glucose 363 mg/dL (70-105) H 01/10/19 15:10 POC Glucose 191 MG/DL (70 - 105) H 02/07/19 17:07 Calcium 9.6 mg/dL (8.6-10.3) 01/10/19 15:10 Total Bilirubin 0.5 mg/dL (0.3-1.0) 01/10/19 15:10 AST 13 U/L (13-39) 01/10/19 15:10 ALT 14 U/L (7-52) 01/10/19 15:10 Alkaline Phosphatase 66 U/L (34-104) 01/10/19 15:10 Troponin I 0.04 ng/mL (0.01-0.05) 01/19/19 22:30 Total Protein 7.1 gm/dL (6.0-8.3) 01/10/19 15:10 Albumin 3.7 gm/dL (3.7-5.3) 01/10/19 15:10 Globulin 3.4 gm/dL 01/10/19 15:10 Albumin/Globulin Ratio 1.1 (1.0-1.8) 01/10/19 15:10 Triglycerides 417 mg/dL (<150) H 01/10/19 15:10 Cholesterol 188 mg/dL (<200) 01/10/19 15:10 LDL Cholesterol Direct 109 mg/dL (75-193) 01/10/19 15:10 HDL Cholesterol 27 mg/dL (23-92) 01/10/19 15:10 TSH 1.76 uIU/ml (0.34-5.60) 01/10/19 15:10 Urine Source CLEAN C 01/14/19 17:00 Urine Color YELLOW 01/14/19 17:00 Urine Clarity CLOUDY (CLEAR) H 01/14/19 17:00 Urine pH 6.5 (4.6 - 8.0) 01/14/19 17:00 Ur Specific [place] <= 1.005 (1.005-1.030) 01/14/19 17:00 Urine Protein NEGATIVE mg/dL (NEGATIVE) 01/14/19 17:00 Urine Glucose (UA) 100 mg/dL (NEGATIVE) H 01/14/19 17:00 Urine Ketones NEGATIVE mg/dL (NEGATIVE) 01/14/19 17:00 Urine Blood SMALL (NEGATIVE) H 01/14/19 17:00 Urine Nitrate NEGATIVE (NEGATIVE) 01/14/19 17:00 Urine Bilirubin NEGATIVE (NEGATIVE) 01/14/19 17:00 Urine Urobilinogen 0.2 E.U./dL (0.2 - 1.0) 01/14/19 17:00 Ur Leukocyte Esterase MODERATE (NEGATIVE) H 01/14/19 17:00 Urine RBC 2-5 /hpf (0-5) 01/14/19 17:00 Urine WBC 6-10 /hpf (0-5) H 01/14/19 17:00 Ur Epithelial Cells FEW /lpf (FEW) 01/14/19 17:00 Urine Bacteria MANY /hpf (NONE SEEN) H 01/14/19 17:00 RPR NONREACTIVE (NONREACTIVE) 01/10/19 15:10 - Physical Exam Vitals and I&O: Vital Signs Temp 99.1 F 02/07/19 14:00 Pulse 82 02/07/19 16:47 Resp 20 02/07/19 14:00 BP 162/94 02/07/19 16:47 Pulse Ox 97 02/07/19 14:00 Intake & Output 02/06/19 02/07/19 02/07/19 18:59 06:59 18:59 Intake Total 900 120 Balance 900 120 Intake: Oral 900 120 Other: # Voids 3 1 # Bowel Movements 0 0 Active Medications: Current Medications Acetaminophen (Tylenol Extra Strength) 500 mg PO Q4H PRN PRN Reason: Pain or Fever >101 Stop: 03/12/19 00:41 Last Admin: 02/05/19 17:45 Dose: 500 mg Al Hydrox/Mg Hydrox/Simethicone (Maalox) 30 ml PO Q4HR PRN PRN Reason: GI DISTRESS Stop: 03/11/19 19:56 Albuterol/Ipratropium (Duoneb Neb) 3 ml HHN Q4H PRN PRN Reason: Wheezing Stop: 03/12/19 00:48 Last Admin: 01/27/19 07:28 Dose: 3 ml Aripiprazole (Abilify) 30 mg PO DAILY [facility]; Protocol Stop: 03/17/19 08:59 Last Admin: 02/07/19 09:09 Dose: 30 mg Aspirin (Ecotrin) 81 mg PO DAILY [facility] Stop: 03/12/19 08:59 Last Admin: 02/07/19 09:10 Dose: 81 mg Atorvastatin Calcium (Lipitor) 20 mg PO HS [facility]; Protocol Stop: 03/12/19 20:59 Last Admin: 02/06/19 21:00 Dose: Not Given Brimonidine Tartrate (Alphagan 0.1% Oph Soln) 1 drop EACH EYE TID [facility] Stop: 03/12/19 08:59 Last Admin: 02/07/19 14:57 Dose: 1 drop Carvedilol (Coreg) 12.5 mg PO BID [facility] Stop: 03/21/19 08:59 Last Admin: 02/07/19 16:47 Dose: 12.5 mg Clonazepam (Klonopin) 0.5 mg PO BID [facility]; Protocol Stop: 04/05/19 16:59 Last Admin: 02/07/19 16:45 Dose: 0.5 mg Docusate Sodium (Colace) 100 mg PO BID [facility] Stop: 03/12/19 08:59 Last Admin: 02/07/19 16:47 Dose: 100 mg Duloxetine HCl (Cymbalta) 60 mg PO DAILY [facility]; Protocol Stop: 03/13/19 11:59 Last Admin: 02/07/19 09:08 Dose: 60 mg Fluticasone Propionate (Flonase) 1 spr NS DAILY [facility] Stop: 03/12/19 08:59 Last Admin: 02/07/19 09:13 Dose: 1 spr Glucagon (Glucagen) 1 mg IM PRN PRN PRN Reason: BS below 70 Stop: 03/11/19 23:24 Haloperidol Decanoate (Haldol Dec) 50 mg IM QMONTH [facility]; Protocol Stop: 03/17/19 15:59 Last Admin: 01/16/19 16:34 Dose: 50 mg Haloperidol Lactate (Haldol Concentrate 10mg/5ml Susp) 5 mg PO BID [facility]; Protocol Stop: 03/18/19 08:59 Last Admin: 02/07/19 16:45 Dose: 5 mg Hydralazine HCl (Apresoline) 10 mg PO BID [facility] Stop: 03/12/19 08:59 Last Admin: 02/07/19 16:45 Dose: 10 mg Ibuprofen (Motrin) 600 mg PO Q8H PRN PRN Reason: breakthrough pain Stop: 03/12/19 00:35 Last Admin: 01/23/19 12:55 Dose: 600 mg Insulin Glargine (Lantus Insulin) 26 units SUBQ HS [facility] Stop: 03/12/19 20:59 Last Admin: 02/06/19 21:00 Dose: Not Given Insulin Human Lispro (Humalog Insulin Sliding Scale) 0 units SUBQ [facility]; Protocol Stop: 03/11/19 20:59 Last Admin: 02/07/19 17:19 Dose: Not Given Isosorbide Dinitrate (Isordil) 10 mg PO Q8HR [facility] Stop: 03/12/19 04:59 Last Admin: 02/07/19 06:01 Dose: 10 mg Latanoprost (Xalatan 0.005% Ophth Soln) 1 drop EACH EYE HS [facility] Stop: 03/12/19 20:59 Last Admin: 02/06/19 21:00 Dose: Not Given Levothyroxine Sodium (Synthroid) 0.075 mg PO QDAC [facility] Stop: 03/12/19 07:29 Last Admin: 02/07/19 06:57 Dose: 0.075 mg Loratadine (Claritin) 10 mg PO DAILY [facility] Stop: 03/12/19 08:59 Last Admin: 02/07/19 09:09 Dose: 10 mg Lorazepam (Ativan) 0.5 mg PO Q4HR PRN; Protocol PRN Reason: Anxiety/Agitation Stop: 02/09/19 19:56 Last Admin: 02/05/19 21:25 Dose: 0.5 mg Losartan Potassium (Cozaar) 50 mg PO DAILY [facility] Stop: 03/12/19 08:59 Last Admin: 02/07/19 09:09 Dose: 50 mg Magnesium Hydroxide (Milk Of Magnesia) 30 ml PO HS PRN PRN Reason: Constipation Multivitamins/Vitamin C (Theragran) 1 tab PO DAILY [facility] Stop: 03/12/19 08:59 Last Admin: 02/07/19 09:09 Dose: 1 tab Naproxen (Naprosyn) 500 mg PO BIDWM [facility] Stop: 03/20/19 17:59 Last Admin: 02/07/19 09:19 Dose: 500 mg Nitroglycerin (Nitrostat) 0.4 mg SL Q5MIN PRN PRN Reason: CHEST PAIN Stop: 03/11/19 23:24 Last Admin: 01/19/19 16:46 Dose: 0.4 mg Oxycodone/Acetaminophen (Percocet 5/325mg Oral Tab) 1 tab PO Q8H PRN PRN Reason: severe pain (7-10) Stop: 03/12/19 00:44 Last Admin: 02/06/19 13:00 Dose: 1 tab Senna (Senna) 17.2 mg PO HS [facility] Stop: 03/12/19 20:59 Last Admin: 02/06/19 21:00 Dose: Not Given Sodium Phosphate (Fleet Enema) 135 ml RC DAILY PRN PRN Reason: Constipation Stop: 03/11/19 23:24 Vitamin B Complex/Vit C/Folic Acid (Vitamin B Complex W/Vitamin C) 1 tab PO DAILY [facility] Stop: 03/12/19 08:59 Last Admin: 02/07/19 09:09 Dose: 1 tab Zolpidem Tartrate (Ambien) 5 mg PO HS PRN PRN Reason: Insomnia Stop: 03/11/19 19:56 Last Admin: 02/05/19 21:25 Dose: 5 mg General: alert HEENT: NC/AT, PERRLA, EOMI, anicteric sclerae, throat clear Neck: Supple, No JVD, No thyromegaly, +2 carotid pulse wo bruit, No LAD Lungs: CTAB Cardiovascular: RRR, Normal S1, Normal S2, without murmur Abdomen: soft, non-tender, non-distended Extremities: clear Neurological: no change Internal Medicine Assmt/Plan - Assessment Assessment: 1.DM. 2.HTN. 3.HYPOTHYROIDISM. 5.PSYCHOSIS - Plan Plan: CONTINUE ON CURRENT MEDICATION AND DIET. Nutritional Asmnt/Malnutr-PDOC - Dietary Evaluation Malnutrition Findings (Please click <Entered> for more info): Nutritional Asmnt/Malnutrition Start: 01/11/19 12: 41 Text: Status: Complete Freq: Protocol: Document 01/11/19 12:41 AXEL (Rec: 01/11/19 12:45 [email or web address] [email or web address]) Nutritional Asmnt/Malnutrition Patient General Information Nutritional Screening Consult Diagnosis PSYCHOSIS Pertinent Medical Hx/Surgical Hx HTN, DM, HYPOTHYROIDISM, PSYCHOSIS, DJD Subjective Information IA CONSULT: DM PT IS A 78 YEAR OLD FEMALE [facility] D/T AGGRESSIVE BEHAVIOR. PT WAS HERE RECENTLY, DISCHARGED ON . PER MEAL/NUTRITION ACTIVITY RECORD, PT TYPICALLY ATE 100% MEALS. HT: 59 WT: 310 LB (141 KG) ABW: 186 LB (84.66 KG) BMI: 45.78 (OBESE III) GI: WNL, NON-TENDER, LARGE, ROUND BM: NOT NOTED I/O: 240/NOT NOTED SKIN: SKIN BREAKDOWN TO BUTTOCKS AREA LUIS: NOT NOTED DIET ORDER: CCHO 45GM, PUREED ESTIMATED ENERGY NEEDS: (OBESE III, ABW) 9684-4991 KCALS (20-25 KCALS/ KG) 68-85 G PRO (0.8-1.0 G/KG) 5624-8625 ML (25-30 ML/KG) PT PO INTAKE: 100% SNACK PROVIDED. Current Diet Order/ Nutrition Support CCHO 45GM, PUREED Pertinent Medications MAALOX (PRN), ALBUTEROL (PRN), LIPITOR, COREG, COLACE, GLUCAGON (PRN), LANTUS, SYNTHROID, INS-SS, COZAAR, MOM (PRN), THEREGRAN, SENNA, FLEET ENEMA (PRN), VIT B COMLPEX WITH VIT C Pertinent Labs 01/10: NA 131, GLUCOSE 363 POC GLUCOSE (LAST 24 HOURS): 257, 250 Nutritional Hx/Data Height 1.75 m Height (Calculated Centimeters) 175.3 Current Weight (lbs) 140.614 kg Weight (Calculated Kilograms) 140.6 Weight (Calculated Grams) 044600.6 [place] Body Weight 145 % [place] Body Weight 214 Body Mass Index (BMI) 45.8 Weight Status Morbidly Obese GI Symptoms GI Symptoms None Last BM NOT NOTED Skin Integrity/Comment: SKIN BREAKDOWN TO BUTTOCKS AREA LUIS: NOT NOTED Current %PO Good (75-100%) Estimated Nutritional Goals BEE in Kcals: Adj wt of IBW Calories/Kcals/Kg 20-25 Kcals Calculated 2194-1397 Protein: Adj wt of IBW Protein g/k.8-1.0 Protein Calculated 68-85 Fluid: ml 4961-4860 ML (25-30 ML/KG) Nutritional Problem 1. Problem Problem ALTERED NUTRITION RELATED LABS Etiology R/T ENDOCRINE DYSFUNCTION Signs/Symptoms: AEB HX DM AND GLUCOSE 363 Malnutrition Related to Morbid Obesity Malnutrition related to morbid obesity Weight 200% of ideal wt Query Text:(Any 1 Criteria met) Malnutrition related to morbid obesity Yes Intervention/Recommendation Comments 1. CONTINUE WITH [facility] 45GM, PUREED DIET ORDERED. 2. CONTNIUE ANTIHYPERGLYCEMIC MEDICATION FOR GLUCOSE CONTROL PER MD ORDER. Expected Outcomes/Goals Expected Outcomes/Goals 1. PO INTAKE TO MEET 75% OF NUTRITIONAL NEEDS. 2. MONITOR PO INTAKE, WT, NUTRITION RELATED LABS AND SKIN INTEGRITY. 3. F/U LOW RISK IN 7 DAYS, 01/18
--- NOTE | 2019-02-07 18:41 | Progress Notes ---
DATE: 02/06/2019 SUBJECTIVE: Chart was reviewed and the patient interviewed. Also discussed the patient's condition with the staff and reviewed records and labs. The patient is still suspicious and is still paranoid. The patient also is still easily agitated and still needs redirections, but easier to redirect her. The patient also is interacting slightly more. She also has been compliant with taking her medications. ASSESSMENT: The patient is still psychotic, but less than before. TREATMENT PLAN: Continue to monitor her behavior and her condition closely. Also, continue to work on placement issue and so far no place accepted the patient. I spoke with case filler last Monday and informed them about [facility] that might take the patient, but I did not hear back from them or from the social work professor yet. At the same time, we will continue her current medications and continue to work on behavioral modification. JOB# [id number]
[2019-02-07] MEDS: Atorvastatin Calcium 10 MG TAB PO SCH (20:57)
[2019-02-07] MEDS: Insulin Glargine 100 units/ml 10ml Vial SUBQ SCH (20:58)
[2019-02-07] MEDS: APAP/Oxycodone 5/325mg Tab PO PRN (23:11)
--- NOTE | 2019-02-08 01:30 | Progress Notes ---
DATE: 02/07/2019 SUBJECTIVE: Chart was reviewed and the patient interviewed. Also discussed the patient's condition with the staff and reviewed records and labs. The patient continued to be having episodes of agitation and irritability. The patient also is still nervous and tense and is still depressed because of her long hospital stay. On the other hand, the patient is easier to follow directions, had no major behavioral problems. The patient also is compliant with taking her medications with no side effects of medications. ASSESSMENT: The patient is less agitated and less irritable, but still waiting for placement. TREATMENT PLAN: Continue to monitor her behavior and her condition closely. Also, continue adjusting psychotropic medications and also working on discharge plans and placement issue. [facility]# [id number]
[2019-02-08] MEDS: INSULIN LISPRO SLIDING SCALE 100 UNITS/ML UNIT SUBQ SCH ×3 (06:43→21:11)
[2019-02-08] MEDS: Levothyroxine 0.075 Mg Tab PO SCH (06:43)
--- NOTE | 2019-02-08 07:29 | Progress Notes ---
DATE: 02/08/2019 SUBJECTIVE: Chart was reviewed and the patient interviewed. Also discussed the patient's condition with the staff and reviewed records and labs. The patient is calm and cooperative. The patient also is less agitated and less irritable. She also is compliant with taking her medications with no side effects of medications. She also is interacting more. On the other hand, the patient is still anxious about discharge and about placement and so far no place accepted the patient yet ASSESSMENT: The patient is not as depressed or as agitated, but waiting for placement. TREATMENT PLAN: We will continue current medications including Abilify 30 mg every day and Klonopin 0.5 mg twice a day and Cymbalta 60 mg every day. Also, we will continue adjusting Haldol 5 mg twice a day and we will continue to follow up closely. Also, working with trimming caser in regard to placement issue. JOB# [id number]
[2019-02-08] MEDS: Haldol Oral Sol.(concentrate) 10 mg/5 mL Udc PO SCH ×2 (08:51→17:27)
[2019-02-08] MEDS: Vitamin B Complex w/Vitamin C Tab PO SCH (08:51)
[2019-02-08] MEDS: Multivitamin Tab PO SCH (08:52)
[2019-02-08] MEDS: Fluticasone Propionate Nasal 1 SPR SPR NS SCH (09:04)
--- NOTE | 2019-02-08 17:56 | Internal Medicine Prog Note ---
Internal Medicine Subjective - Subjective Service Date: 02/08/19 Patient seen and examined:: with staff (SHE FEELS BETTER) Patient is:: awake, verbal, in bed, talking Per staff patient has:: no adverse event Internal Medicine Objective - Results Result Diagrams: 01/10/19 15:10 01/10/19 15:10 Recent Labs: Laboratory Last Values WBC 8.4 Th/cmm (4.8-10.8) 01/10/19 15:10 RBC 5.16 Mil/cmm (3.80-5.20) 01/10/19 15:10 Hgb 14.9 gm/dL (12-16) 01/10/19 15:10 Hct 44.3 % (41.0-60) 01/10/19 15:10 MCV 85.8 fl (81-100) 01/10/19 15:10 MCH 28.9 pg (27.0-31.0) 01/10/19 15:10 MCHC Differential 33.7 pg (28.0-36.0) 01/10/19 15:10 RDW 12.1 % (11.5-20.0) 01/10/19 15:10 Plt Count 291 Th/cmm (150-400) 01/10/19 15:10 MPV 7.3 fl 01/10/19 15:10 Neutrophils % 59.5 % (40.0-80.0) 01/10/19 15:10 Lymphocytes % 31.2 % (20.0-50.0) 01/10/19 15:10 Monocytes % 5.0 % (2.0-10.0) 01/10/19 15:10 Eosinophils % 4.3 % (0.0-5.0) 01/10/19 15:10 Basophils % 0.0 % (0.0-2.0) 01/10/19 15:10 Sodium 131 mEq/L (136-145) L 01/10/19 15:10 Potassium 4.2 mEq/L (3.5-5.1) 01/10/19 15:10 Chloride 96 mEq/L (98-107) L 01/10/19 15:10 Carbon Dioxide 23.9 mEq/L (21.0-31.0) 01/10/19 15:10 Anion Gap 15.3 (7.0-16.0) 01/10/19 15:10 BUN 18 mg/dL (7-25) 01/10/19 15:10 Creatinine 1.0 mg/dL (0.6-1.2) 01/10/19 15:10 Est GFR ( Amer) TNP 01/10/19 15:10 Est GFR (Non-Af Amer) TNP 01/10/19 15:10 BUN/Creatinine Ratio 18.0 01/10/19 15:10 Glucose 363 mg/dL (70-105) H 01/10/19 15:10 POC Glucose 191 MG/DL (70 - 105) H 02/08/19 16:38 Calcium 9.6 mg/dL (8.6-10.3) 01/10/19 15:10 Total Bilirubin 0.5 mg/dL (0.3-1.0) 01/10/19 15:10 AST 13 U/L (13-39) 01/10/19 15:10 ALT 14 U/L (7-52) 01/10/19 15:10 Alkaline Phosphatase 66 U/L (34-104) 01/10/19 15:10 Troponin I 0.04 ng/mL (0.01-0.05) 01/19/19 22:30 Total Protein 7.1 gm/dL (6.0-8.3) 01/10/19 15:10 Albumin 3.7 gm/dL (3.7-5.3) 01/10/19 15:10 Globulin 3.4 gm/dL 01/10/19 15:10 Albumin/Globulin Ratio 1.1 (1.0-1.8) 01/10/19 15:10 Triglycerides 417 mg/dL (<150) H 01/10/19 15:10 Cholesterol 188 mg/dL (<200) 01/10/19 15:10 LDL Cholesterol Direct 109 mg/dL (75-193) 01/10/19 15:10 HDL Cholesterol 27 mg/dL (23-92) 01/10/19 15:10 TSH 1.76 uIU/ml (0.34-5.60) 01/10/19 15:10 Urine Source CLEAN C 01/14/19 17:00 Urine Color YELLOW 01/14/19 17:00 Urine Clarity CLOUDY (CLEAR) H 01/14/19 17:00 Urine pH 6.5 (4.6 - 8.0) 01/14/19 17:00 Ur Specific [place] <= 1.005 (1.005-1.030) 01/14/19 17:00 Urine Protein NEGATIVE mg/dL (NEGATIVE) 01/14/19 17:00 Urine Glucose (UA) 100 mg/dL (NEGATIVE) H 01/14/19 17:00 Urine Ketones NEGATIVE mg/dL (NEGATIVE) 01/14/19 17:00 Urine Blood SMALL (NEGATIVE) H 01/14/19 17:00 Urine Nitrate NEGATIVE (NEGATIVE) 01/14/19 17:00 Urine Bilirubin NEGATIVE (NEGATIVE) 01/14/19 17:00 Urine Urobilinogen 0.2 E.U./dL (0.2 - 1.0) 01/14/19 17:00 Ur Leukocyte Esterase MODERATE (NEGATIVE) H 01/14/19 17:00 Urine RBC 2-5 /hpf (0-5) 01/14/19 17:00 Urine WBC 6-10 /hpf (0-5) H 01/14/19 17:00 Ur Epithelial Cells FEW /lpf (FEW) 01/14/19 17:00 Urine Bacteria MANY /hpf (NONE SEEN) H 01/14/19 17:00 RPR NONREACTIVE (NONREACTIVE) 01/10/19 15:10 - Physical Exam Vitals and I&O: Vital Signs Temp 98.6 F 02/08/19 14:00 Pulse 70 02/08/19 17:30 Resp 20 02/08/19 14:00 BP 160/99 02/08/19 17:30 Pulse Ox 97 02/08/19 14:00 Intake & Output 02/07/19 02/08/19 02/08/19 18:59 06:59 18:59 Intake Total 1500 120 Balance 1500 120 Intake: Oral 1500 120 Other: # Voids 4 3 # Bowel Movements 0 Active Medications: Current Medications Acetaminophen (Tylenol Extra Strength) 500 mg PO Q4H PRN PRN Reason: Pain or Fever >101 Stop: 03/12/19 00:41 Last Admin: 02/05/19 17:45 Dose: 500 mg Al Hydrox/Mg Hydrox/Simethicone (Maalox) 30 ml PO Q4HR PRN PRN Reason: GI DISTRESS Stop: 03/11/19 19:56 Albuterol/Ipratropium (Duoneb Neb) 3 ml HHN Q4H PRN PRN Reason: Wheezing Stop: 03/12/19 00:48 Last Admin: 01/27/19 07:28 Dose: 3 ml Aripiprazole (Abilify) 30 mg PO DAILY [facility]; Protocol Stop: 03/17/19 08:59 Last Admin: 02/08/19 08:51 Dose: 30 mg Aspirin (Ecotrin) 81 mg PO DAILY CAL Stop: 03/12/19 08:59 Last Admin: 02/08/19 08:52 Dose: 81 mg Atorvastatin Calcium (Lipitor) 20 mg PO HS CAL; Protocol Stop: 03/12/19 20:59 Last Admin: 02/07/19 20:57 Dose: 20 mg Brimonidine Tartrate (Alphagan 0.1% Oph Soln) 1 drop EACH EYE TID CAL Stop: 03/12/19 08:59 Last Admin: 02/08/19 14:05 Dose: 1 drop Carvedilol (Coreg) 12.5 mg PO BID [facility] Stop: 03/21/19 08:59 Last Admin: 02/08/19 17:30 Dose: 12.5 mg Clonazepam (Klonopin) 0.5 mg PO BID [facility]; Protocol Stop: 04/05/19 16:59 Last Admin: 02/08/19 17:30 Dose: 0.5 mg Docusate Sodium (Colace) 100 mg PO BID [facility] Stop: 03/12/19 08:59 Last Admin: 02/08/19 17:30 Dose: 100 mg Duloxetine HCl (Cymbalta) 60 mg PO DAILY [facility]; Protocol Stop: 03/13/19 11:59 Last Admin: 02/08/19 08:53 Dose: 60 mg Fluticasone Propionate (Flonase) 1 spr NS DAILY CAL Stop: 03/12/19 08:59 Last Admin: 02/08/19 09:04 Dose: 1 spr Glucagon (Glucagen) 1 mg IM PRN PRN PRN Reason: BS below 70 Stop: 03/11/19 23:24 Haloperidol Decanoate (Haldol Dec) 50 mg IM QMONTH CAL; Protocol Stop: 03/17/19 15:59 Last Admin: 01/16/19 16:34 Dose: 50 mg Haloperidol Lactate (Haldol Concentrate 10mg/5ml Susp) 5 mg PO BID [facility]; Protocol Stop: 03/18/19 08:59 Last Admin: 02/08/19 17:27 Dose: 5 mg Hydralazine HCl (Apresoline) 10 mg PO BID CAL Stop: 03/12/19 08:59 Last Admin: 02/08/19 17:28 Dose: 10 mg Ibuprofen (Motrin) 600 mg PO Q8H PRN PRN Reason: breakthrough pain Stop: 03/12/19 00:35 Last Admin: 01/23/19 12:55 Dose: 600 mg Insulin Glargine (Lantus Insulin) 26 units SUBQ HS CAL Stop: 03/12/19 20:59 Last Admin: 02/07/19 20:58 Dose: 26 units Insulin Human Lispro (Humalog Insulin Sliding Scale) 0 units SUBQ [facility]; Protocol Stop: 03/11/19 20:59 Last Admin: 02/08/19 12:17 Dose: 2 units Isosorbide Dinitrate (Isordil) 10 mg PO Q8HR [facility] Stop: 03/12/19 04:59 Last Admin: 02/08/19 12:24 Dose: 10 mg Latanoprost (Xalatan 0.005% Ophth Soln) 1 drop EACH EYE HS [facility] Stop: 03/12/19 20:59 Last Admin: 02/07/19 21:00 Dose: 1 drop Levothyroxine Sodium (Synthroid) 0.075 mg PO QDAC [facility] Stop: 03/12/19 07:29 Last Admin: 02/08/19 06:43 Dose: 0.075 mg Loratadine (Claritin) 10 mg PO DAILY [facility] Stop: 03/12/19 08:59 Last Admin: 02/08/19 08:54 Dose: 10 mg Lorazepam (Ativan) 0.5 mg PO Q4HR PRN; Protocol PRN Reason: Anxiety/Agitation Stop: 02/09/19 19:56 Last Admin: 02/05/19 21:25 Dose: 0.5 mg Losartan Potassium (Cozaar) 50 mg PO DAILY [facility] Stop: 03/12/19 08:59 Last Admin: 02/08/19 08:52 Dose: 50 mg Magnesium Hydroxide (Milk Of Magnesia) 30 ml PO HS PRN PRN Reason: Constipation Multivitamins/Vitamin C (Theragran) 1 tab PO DAILY [facility] Stop: 03/12/19 08:59 Last Admin: 02/08/19 08:52 Dose: 1 tab Naproxen (Naprosyn) 500 mg PO BIDWM CAL Stop: 03/20/19 17:59 Last Admin: 02/08/19 17:28 Dose: 500 mg Nitroglycerin (Nitrostat) 0.4 mg SL Q5MIN PRN PRN Reason: CHEST PAIN Stop: 03/11/19 23:24 Last Admin: 01/19/19 16:46 Dose: 0.4 mg Oxycodone/Acetaminophen (Percocet 5/325mg Oral Tab) 1 tab PO Q8H PRN PRN Reason: severe pain (7-10) Stop: 03/12/19 00:44 Last Admin: 02/07/19 23:11 Dose: 1 tab Senna (Senna) 17.2 mg PO HS CAL Stop: 03/12/19 20:59 Last Admin: 02/07/19 21:00 Dose: 17.2 mg Sodium Phosphate (Fleet Enema) 135 ml RC DAILY PRN PRN Reason: Constipation Stop: 03/11/19 23:24 Vitamin B Complex/Vit C/Folic Acid (Vitamin B Complex W/Vitamin C) 1 tab PO DAILY CAL Stop: 03/12/19 08:59 Last Admin: 02/08/19 08:51 Dose: 1 tab Zolpidem Tartrate (Ambien) 5 mg PO HS PRN PRN Reason: Insomnia Stop: 03/11/19 19:56 Last Admin: 02/05/19 21:25 Dose: 5 mg General: alert HEENT: NC/AT, PERRLA, EOMI, anicteric sclerae, throat clear Neck: Supple, No JVD, No thyromegaly, +2 carotid pulse wo bruit, No LAD Lungs: CTAB Cardiovascular: RRR, Normal S1, Normal S2, without murmur Abdomen: soft, non-tender, non-distended Extremities: clear Neurological: no change Internal Medicine Assmt/Plan - Assessment Assessment: 1.DM. 2.HTN. 3.HYPOTHYROIDISM. 5.PSYCHOSIS - Plan Plan: CONTINUE ON CURRENT MEDICATION AND DIET. Nutritional Asmnt/Malnutr-PDOC - Dietary Evaluation Malnutrition Findings (Please click <Entered> for more info): Nutritional Asmnt/Malnutrition Start: 01/11/19 12: 41 Text: Status: Complete Freq: Protocol: Document 01/11/19 12:41 AXEL (Rec: 01/11/19 12:45 [email or web address] [email or web address]) Nutritional Asmnt/Malnutrition Patient General Information Nutritional Screening Consult Diagnosis PSYCHOSIS Pertinent Medical Hx/Surgical Hx HTN, DM, HYPOTHYROIDISM, PSYCHOSIS, DJD Subjective Information IA CONSULT: DM PT IS A 78 YEAR OLD FEMALE [facility] AD[facility] ON [facility] D/T AGGRESSIVE BEHAVIOR. PT WAS HERE RECENTLY, DISCHARGED ON . PER MEAL/NUTRITION ACTIVITY RECORD, PT TYPICALLY ATE 100% MEALS. HT: 59 WT: 310 LB (141 KG) ABW: 186 LB (84.66 KG) BMI: 45.78 (OBESE III) GI: WNL, NON-TENDER, LARGE, ROUND BM: NOT NOTED I/O: 240/NOT NOTED SKIN: SKIN BREAKDOWN TO BUTTOCKS AREA LUIS: NOT NOTED DIET ORDER: CCHO 45GM, PUREED ESTIMATED ENERGY NEEDS: (OBESE III, ABW) 5054-0909 KCALS (20-25 KCALS/ KG) 68-85 G PRO (0.8-1.0 G/KG) 3949-5061 ML (25-30 ML/KG) PT PO INTAKE: 100% SNACK PROVIDED. Current Diet Order/ Nutrition Support CCHO 45GM, PUREED Pertinent Medications MAALOX (PRN), ALBUTEROL (PRN), LIPITOR, COREG, COLACE, GLUCAGON (PRN), LANTUS, SYNTHROID, INS-SS, COZAAR, MOM (PRN), THEREGRAN, SENNA, FLEET ENEMA (PRN), VIT B COMLPEX WITH VIT C Pertinent Labs 01/10: NA 131, GLUCOSE 363 POC GLUCOSE (LAST 24 HOURS): 257, 250 Nutritional Hx/Data Height 1.75 m Height (Calculated Centimeters) 175.3 Current Weight (lbs) 140.614 kg Weight (Calculated Kilograms) 140.6 Weight (Calculated Grams) 919766.6 [place] Body Weight 145 % [place] Body Weight 214 Body Mass Index (BMI) 45.8 Weight Status Morbidly Obese GI Symptoms GI Symptoms None Last BM NOT NOTED Skin Integrity/Comment: SKIN BREAKDOWN TO BUTTOCKS AREA LUIS: NOT NOTED Current %PO Good (75-100%) Estimated Nutritional Goals BEE in Kcals: Adj wt of IBW Calories/Kcals/Kg 20-25 Kcals Calculated 8797-4953 Protein: Adj wt of IBW Protein g/k.8-1.0 Protein Calculated 68-85 Fluid: ml 7040-5703 ML (25-30 ML/KG) Nutritional Problem 1. Problem Problem ALTERED NUTRITION RELATED LABS Etiology R/T ENDOCRINE DYSFUNCTION Signs/Symptoms: AEB HX DM AND GLUCOSE 363 Malnutrition Related to Morbid Obesity Malnutrition related to morbid obesity Weight 200% of ideal wt Query Text:(Any 1 Criteria met) Malnutrition related to morbid obesity Yes Intervention/Recommendation Comments 1. CONTINUE WITH [facility] 45GM, PUREED DIET ORDERED. 2. CONTNIUE ANTIHYPERGLYCEMIC MEDICATION FOR GLUCOSE CONTROL PER MD ORDER. Expected Outcomes/Goals Expected Outcomes/Goals 1. PO INTAKE TO MEET 75% OF NUTRITIONAL NEEDS. 2. MONITOR PO INTAKE, WT, NUTRITION RELATED LABS AND SKIN INTEGRITY. 3. F/U LOW RISK IN 7 DAYS, 01/18
[2019-02-08] MEDS: Atorvastatin Calcium 10 MG TAB PO SCH (21:11)
[2019-02-08] MEDS: Insulin Glargine 100 units/ml 10ml Vial SUBQ SCH (21:12)
[2019-02-09] MEDS: INSULIN LISPRO SLIDING SCALE 100 UNITS/ML UNIT SUBQ SCH ×4 (06:40→21:37)
[2019-02-09] MEDS: Levothyroxine 0.075 Mg Tab PO SCH (06:41)
[2019-02-09] MEDS: Vitamin B Complex w/Vitamin C Tab PO SCH (08:57)
[2019-02-09] MEDS: Haldol Oral Sol.(concentrate) 10 mg/5 mL Udc PO SCH ×2 (08:58→17:02)
[2019-02-09] MEDS: Multivitamin Tab PO SCH (08:59)
[2019-02-09] MEDS: Fluticasone Propionate Nasal 1 SPR SPR NS SCH (09:00)
--- NOTE | 2019-02-09 15:15 | General Progress Note ---
Subjective - Review of Systems Service Date: 02/09/19 Subjective: resting comfortably no distress Objective - Results Result Diagrams: 01/10/19 15:10 01/10/19 15:10 Recent Labs: Laboratory Last Values WBC 8.4 Th/cmm (4.8-10.8) 01/10/19 15:10 RBC 5.16 Mil/cmm (3.80-5.20) 01/10/19 15:10 Hgb 14.9 gm/dL (12-16) 01/10/19 15:10 Hct 44.3 % (41.0-60) 01/10/19 15:10 MCV 85.8 fl (81-100) 01/10/19 15:10 MCH 28.9 pg (27.0-31.0) 01/10/19 15:10 MCHC Differential 33.7 pg (28.0-36.0) 01/10/19 15:10 RDW 12.1 % (11.5-20.0) 01/10/19 15:10 Plt Count 291 Th/cmm (150-400) 01/10/19 15:10 MPV 7.3 fl 01/10/19 15:10 Neutrophils % 59.5 % (40.0-80.0) 01/10/19 15:10 Lymphocytes % 31.2 % (20.0-50.0) 01/10/19 15:10 Monocytes % 5.0 % (2.0-10.0) 01/10/19 15:10 Eosinophils % 4.3 % (0.0-5.0) 01/10/19 15:10 Basophils % 0.0 % (0.0-2.0) 01/10/19 15:10 Sodium 131 mEq/L (136-145) L 01/10/19 15:10 Potassium 4.2 mEq/L (3.5-5.1) 01/10/19 15:10 Chloride 96 mEq/L (98-107) L 01/10/19 15:10 Carbon Dioxide 23.9 mEq/L (21.0-31.0) 01/10/19 15:10 Anion Gap 15.3 (7.0-16.0) 01/10/19 15:10 BUN 18 mg/dL (7-25) 01/10/19 15:10 Creatinine 1.0 mg/dL (0.6-1.2) 01/10/19 15:10 Est GFR ( Amer) TNP 01/10/19 15:10 Est GFR (Non-Af Amer) TNP 01/10/19 15:10 BUN/Creatinine Ratio 18.0 01/10/19 15:10 Glucose 363 mg/dL (70-105) H 01/10/19 15:10 POC Glucose 190 MG/DL (70 - 105) H 02/09/19 05:11 Calcium 9.6 mg/dL (8.6-10.3) 01/10/19 15:10 Total Bilirubin 0.5 mg/dL (0.3-1.0) 01/10/19 15:10 AST 13 U/L (13-39) 01/10/19 15:10 ALT 14 U/L (7-52) 01/10/19 15:10 Alkaline Phosphatase 66 U/L (34-104) 01/10/19 15:10 Troponin I 0.04 ng/mL (0.01-0.05) 01/19/19 22:30 Total Protein 7.1 gm/dL (6.0-8.3) 01/10/19 15:10 Albumin 3.7 gm/dL (3.7-5.3) 01/10/19 15:10 Globulin 3.4 gm/dL 01/10/19 15:10 Albumin/Globulin Ratio 1.1 (1.0-1.8) 01/10/19 15:10 Triglycerides 417 mg/dL (<150) H 01/10/19 15:10 Cholesterol 188 mg/dL (<200) 01/10/19 15:10 LDL Cholesterol Direct 109 mg/dL (75-193) 01/10/19 15:10 HDL Cholesterol 27 mg/dL (23-92) 01/10/19 15:10 TSH 1.76 uIU/ml (0.34-5.60) 01/10/19 15:10 Urine Source CLEAN C 01/14/19 17:00 Urine Color YELLOW 01/14/19 17:00 Urine Clarity CLOUDY (CLEAR) H 01/14/19 17:00 Urine pH 6.5 (4.6 - 8.0) 01/14/19 17:00 Ur Specific [place] <= 1.005 (1.005-1.030) 01/14/19 17:00 Urine Protein NEGATIVE mg/dL (NEGATIVE) 01/14/19 17:00 Urine Glucose (UA) 100 mg/dL (NEGATIVE) H 01/14/19 17:00 Urine Ketones NEGATIVE mg/dL (NEGATIVE) 01/14/19 17:00 Urine Blood SMALL (NEGATIVE) H 01/14/19 17:00 Urine Nitrate NEGATIVE (NEGATIVE) 01/14/19 17:00 Urine Bilirubin NEGATIVE (NEGATIVE) 01/14/19 17:00 Urine Urobilinogen 0.2 E.U./dL (0.2 - 1.0) 01/14/19 17:00 Ur Leukocyte Esterase MODERATE (NEGATIVE) H 01/14/19 17:00 Urine RBC 2-5 /hpf (0-5) 01/14/19 17:00 Urine WBC 6-10 /hpf (0-5) H 01/14/19 17:00 Ur Epithelial Cells FEW /lpf (FEW) 01/14/19 17:00 Urine Bacteria MANY /hpf (NONE SEEN) H 01/14/19 17:00 RPR NONREACTIVE (NONREACTIVE) 01/10/19 15:10 - Physical Exam Vitals and I&O: Vital Signs Temp 99.1 F 02/09/19 15:08 Pulse 80 02/09/19 15:08 Resp 20 02/09/19 15:08 BP 163/87 02/09/19 15:08 Pulse Ox 94 02/09/19 15:08 Intake & Output 02/08/19 02/09/19 02/09/19 18:59 06:59 18:59 Intake Total 900 960 Balance 900 960 Intake: Oral 900 960 Other: # Voids 3 1 # Bowel Movements 0 1 Active Medications: Current Medications Acetaminophen (Tylenol Extra Strength) 500 mg PO Q4H PRN PRN Reason: Pain or Fever >101 Stop: 03/12/19 00:41 Last Admin: 02/05/19 17:45 Dose: 500 mg Al Hydrox/Mg Hydrox/Simethicone (Maalox) 30 ml PO Q4HR PRN PRN Reason: GI DISTRESS Stop: 03/11/19 19:56 Albuterol/Ipratropium (Duoneb Neb) 3 ml HHN Q4H PRN PRN Reason: Wheezing Stop: 03/12/19 00:48 Last Admin: 01/27/19 07:28 Dose: 3 ml Aripiprazole (Abilify) 30 mg PO DAILY [facility]; Protocol Stop: 03/17/19 08:59 Last Admin: 02/09/19 08:59 Dose: 30 mg Aspirin (Ecotrin) 81 mg PO DAILY [facility] Stop: 03/12/19 08:59 Last Admin: 02/09/19 08:59 Dose: 81 mg Atorvastatin Calcium (Lipitor) 20 mg PO HS CAL; Protocol Stop: 03/12/19 20:59 Last Admin: 02/08/19 21:11 Dose: 20 mg Brimonidine Tartrate (Alphagan 0.1% [facility]) 1 drop EACH EYE TID CAL Stop: 03/12/19 08:59 Last Admin: 02/09/19 09:01 Dose: 1 drop Carvedilol (Coreg) 12.5 mg PO BID CAL Stop: 03/21/19 08:59 Last Admin: 02/09/19 09:00 Dose: 12.5 mg Clonazepam (Klonopin) 0.5 mg PO BID [facility]; Protocol Stop: 04/05/19 16:59 Last Admin: 02/09/19 08:59 Dose: 0.5 mg Docusate Sodium (Colace) 100 mg PO BID [facility] Stop: 03/12/19 08:59 Last Admin: 02/09/19 08:59 Dose: 100 mg Duloxetine HCl (Cymbalta) 60 mg PO DAILY [facility]; Protocol Stop: 03/13/19 11:59 Last Admin: 02/09/19 08:59 Dose: 60 mg Fluticasone Propionate (Flonase) 1 spr NS DAILY CAL Stop: 03/12/19 08:59 Last Admin: 02/09/19 09:00 Dose: 1 spr Glucagon (Glucagen) 1 mg IM PRN PRN PRN Reason: BS below 70 Stop: 03/11/19 23:24 Haloperidol Decanoate (Haldol Dec) 50 mg IM QMONTH [facility]; Protocol Stop: 03/17/19 15:59 Last Admin: 01/16/19 16:34 Dose: 50 mg Haloperidol Lactate (Haldol Concentrate 10mg/5ml Susp) 5 mg PO BID [facility]; Protocol Stop: 03/18/19 08:59 Last Admin: 02/09/19 08:58 Dose: 5 mg Hydralazine HCl (Apresoline) 10 mg PO BID CAL Stop: 03/12/19 08:59 Last Admin: 02/09/19 08:58 Dose: 10 mg Ibuprofen (Motrin) 600 mg PO Q8H PRN PRN Reason: breakthrough pain Stop: 03/12/19 00:35 Last Admin: 01/23/19 12:55 Dose: 600 mg Insulin Glargine (Lantus Insulin) 26 units SUBQ HS CAL Stop: 03/12/19 20:59 Last Admin: 02/08/19 21:12 Dose: 26 units Insulin Human Lispro (Humalog Insulin Sliding Scale) 0 units SUBQ [facility]; Protocol Stop: 03/11/19 20:59 Last Admin: 02/09/19 11:25 Dose: Not Given Isosorbide Dinitrate (Isordil) 10 mg PO Q8HR CAL Stop: 03/12/19 04:59 Last Admin: 02/09/19 13:00 Dose: 10 mg Latanoprost (Xalatan 0.005% [facility]) 1 drop EACH EYE HS [facility] Stop: 03/12/19 20:59 Last Admin: 02/08/19 20:56 Dose: 1 drop Levothyroxine Sodium (Synthroid) 0.075 mg PO QDAC [facility] Stop: 03/12/19 07:29 Last Admin: 02/09/19 06:41 Dose: 0.075 mg Loratadine (Claritin) 10 mg PO DAILY CAL Stop: 03/12/19 08:59 Last Admin: 02/09/19 09:00 Dose: 10 mg Lorazepam (Ativan) 0.5 mg PO Q4HR PRN; Protocol PRN Reason: Anxiety/Agitation Stop: 02/09/19 19:56 Last Admin: 02/05/19 21:25 Dose: 0.5 mg Losartan Potassium (Cozaar) 50 mg PO DAILY [facility] Stop: 03/12/19 08:59 Last Admin: 02/09/19 09:00 Dose: 50 mg Magnesium Hydroxide (Milk Of Magnesia) 30 ml PO HS PRN PRN Reason: Constipation Multivitamins/Vitamin C (Theragran) 1 tab PO DAILY [facility] Stop: 03/12/19 08:59 Last Admin: 02/09/19 08:59 Dose: 1 tab Naproxen (Naprosyn) 500 mg PO BIDWM CAL Stop: 03/20/19 17:59 Last Admin: 02/09/19 08:59 Dose: 500 mg Nitroglycerin (Nitrostat) 0.4 mg SL Q5MIN PRN PRN Reason: CHEST PAIN Stop: 03/11/19 23:24 Last Admin: 01/19/19 16:46 Dose: 0.4 mg Oxycodone/Acetaminophen (Percocet 5/325mg Oral Tab) 1 tab PO Q8H PRN PRN Reason: severe pain (7-10) Stop: 03/12/19 00:44 Last Admin: 02/07/19 23:11 Dose: 1 tab Senna (Senna) 17.2 mg PO HS CAL Stop: 03/12/19 20:59 Last Admin: 02/08/19 20:59 Dose: 17.2 mg Sodium Phosphate (Fleet Enema) 135 ml RC DAILY PRN PRN Reason: Constipation Stop: 03/11/19 23:24 Vitamin B Complex/Vit C/Folic Acid (Vitamin B Complex W/Vitamin C) 1 tab PO DAILY CAL Stop: 03/12/19 08:59 Last Admin: 02/09/19 08:57 Dose: 1 tab Zolpidem Tartrate (Ambien) 5 mg PO HS PRN PRN Reason: Insomnia Stop: 03/11/19 19:56 Last Admin: 02/05/19 21:25 Dose: 5 mg General: No acute distress HEENT: PERRLA Neck: Supple, JVD Cardiovascular: Regular rate, Normal S1, Normal S2 Lungs: Clear to auscultation Abdomen: Bowel sounds, Soft Assessment/Plan - Assessment Assessment: 1.DM. 2.HTN. 3.HYPOTHYROIDISM. 4.PSYCHOSIS - Plan Plan: continue current treatment Nutritional Asmnt/Malnutr-PDOC - Dietary Evaluation Malnutrition Findings (Please click <Entered> for more info): Nutritional Asmnt/Malnutrition Start: 01/11/19 12: 41 Text: Status: Complete Freq: Protocol: Document 01/11/19 12:41 AXEL (Rec: 01/11/19 12:45 [email or web address] [email or web address]) Nutritional Asmnt/Malnutrition Patient General Information Nutritional Screening Consult Diagnosis PSYCHOSIS Pertinent Medical Hx/Surgical Hx HTN, DM, HYPOTHYROIDISM, PSYCHOSIS, DJD Subjective Information IA CONSULT: DM PT IS A 78 YEAR OLD FEMALE [facility] D/T AGGRESSIVE BEHAVIOR. PT WAS HERE RECENTLY, DISCHARGED ON . PER MEAL/NUTRITION ACTIVITY RECORD, PT TYPICALLY ATE 100% MEALS. HT: 59 WT: 310 LB (141 KG) ABW: 186 LB (84.66 KG) BMI: 45.78 (OBESE III) GI: WNL, NON-TENDER, LARGE, ROUND BM: NOT NOTED I/O: 240/NOT NOTED SKIN: SKIN BREAKDOWN TO BUTTOCKS AREA LUIS: NOT NOTED DIET ORDER: CCHO 45GM, PUREED ESTIMATED ENERGY NEEDS: (OBESE III, ABW) 3937-5434 KCALS (20-25 KCALS/ KG) 68-85 G PRO (0.8-1.0 G/KG) 4487-7977 ML (25-30 ML/KG) PT PO INTAKE: 100% SNACK PROVIDED. Current Diet Order/ Nutrition Support CCHO 45GM, PUREED Pertinent Medications MAALOX (PRN), ALBUTEROL (PRN), LIPITOR, COREG, COLACE, GLUCAGON (PRN), LANTUS, SYNTHROID, INS-SS, COZAAR, MOM (PRN), THEREGRAN, SENNA, FLEET ENEMA (PRN), VIT B COMLPEX WITH VIT C Pertinent Labs 01/10: NA 131, GLUCOSE 363 POC GLUCOSE (LAST 24 HOURS): 257, 250 Nutritional Hx/Data Height 1.75 m Height (Calculated Centimeters) 175.3 Current Weight (lbs) 140.614 kg Weight (Calculated Kilograms) 140.6 Weight (Calculated Grams) 371732.6 [place] Body Weight 145 % [place] Body Weight 214 Body Mass Index (BMI) 45.8 Weight Status Morbidly Obese GI Symptoms GI Symptoms None Last BM NOT NOTED Skin Integrity/Comment: SKIN BREAKDOWN TO BUTTOCKS AREA LUIS: NOT NOTED Current %PO Good (75-100%) Estimated Nutritional Goals BEE in Kcals: Adj wt of IBW Calories/Kcals/Kg 20-25 Kcals Calculated 3709-9912 Protein: Adj wt of IBW Protein g/k.8-1.0 Protein Calculated 68-85 Fluid: ml 1682-9529 ML (25-30 ML/KG) Nutritional Problem 1. Problem Problem ALTERED NUTRITION RELATED LABS Etiology R/T ENDOCRINE DYSFUNCTION Signs/Symptoms: AEB HX DM AND GLUCOSE 363 Malnutrition Related to Morbid Obesity Malnutrition related to morbid obesity Weight 200% of ideal wt Query Text:(Any 1 Criteria met) Malnutrition related to morbid obesity Yes Intervention/Recommendation Comments [facility]. [facility] PUREED DIET ORDERED. 2. CONTNIUE ANTIHYPERGLYCEMIC MEDICATION FOR GLUCOSE CONTROL PER MD ORDER. Expected Outcomes/Goals Expected Outcomes/Goals 1. PO INTAKE TO MEET 75% OF NUTRITIONAL NEEDS. 2. MONITOR PO INTAKE, WT, NUTRITION RELATED LABS AND SKIN INTEGRITY. 3. F/U LOW RISK IN 7 DAYS, 01/18
--- NOTE | 2019-02-09 17:13 | Progress Notes ---
DATE: 02/09/2019 COVERING FOR: Dr. Velazquez. Case was discussed with staff of the patient, reviewed records. This is a well-known patient that I have seen him many times covering for Dr. Velazquez. The patient has been calmer, more cooperative, less agitated and irritable, compliant with the medication with no side effects. She is interacting more, but she still staying in her room. She is still anxious about discharge on placement. No side effects with the medication, no sedation, no nausea and no extrapyramidal symptoms. We will continue outpatient group therapy, milieu therapy, adjust medication as needed. [facility]# [id number]
[2019-02-09] MEDS: Acetaminophen 500 MG TAB PO PRN (18:22)
[2019-02-09] MEDS: Atorvastatin Calcium 10 MG TAB PO SCH (21:20)
[2019-02-09] MEDS: Insulin Glargine 100 units/ml 10ml Vial SUBQ SCH (21:36)
[2019-02-10] MEDS: Levothyroxine 0.075 Mg Tab PO SCH (06:54)
[2019-02-10] MEDS: INSULIN LISPRO SLIDING SCALE 100 UNITS/ML UNIT SUBQ SCH ×4 (06:54→21:57)
[2019-02-10] MEDS: Haldol Oral Sol.(concentrate) 10 mg/5 mL Udc PO SCH ×2 (09:23→17:34)
[2019-02-10] MEDS: Vitamin B Complex w/Vitamin C Tab PO SCH (09:29)
[2019-02-10] MEDS: Fluticasone Propionate Nasal 1 SPR SPR NS SCH (09:31)
[2019-02-10] MEDS: Multivitamin Tab PO SCH (09:31)
--- NOTE | 2019-02-10 14:10 | Progress Notes ---
DATE: 02/10/2019 Case was discussed with staff of the patient, reviewed records. The patient is bedridden and she need help with her ADLs. She is less irritable, agitated, compliant with the medication with no side effects. She stays in her room. Continues to have episodes of anxiety, irritability about placement. No blisters has been accepting her yet and working on discharge plan. We will continue outpatient group therapy, milieu therapy, adjust medication as needed. [facility]# [id number]
--- NOTE | 2019-02-10 21:14 | General Progress Note ---
Subjective - Review of Systems Service Date: 02/10/19 Subjective: resting comfortably no distress Objective - Results Result Diagrams: 01/10/19 15:10 01/10/19 15:10 Recent Labs: Laboratory Last Values WBC 8.4 Th/cmm (4.8-10.8) 01/10/19 15:10 RBC 5.16 Mil/cmm (3.80-5.20) 01/10/19 15:10 Hgb 14.9 gm/dL (12-16) 01/10/19 15:10 Hct 44.3 % (41.0-60) 01/10/19 15:10 MCV 85.8 fl (81-100) 01/10/19 15:10 MCH 28.9 pg (27.0-31.0) 01/10/19 15:10 MCHC Differential 33.7 pg (28.0-36.0) 01/10/19 15:10 RDW 12.1 % (11.5-20.0) 01/10/19 15:10 Plt Count 291 Th/cmm (150-400) 01/10/19 15:10 MPV 7.3 fl 01/10/19 15:10 Neutrophils % 59.5 % (40.0-80.0) 01/10/19 15:10 Lymphocytes % 31.2 % (20.0-50.0) 01/10/19 15:10 Monocytes % 5.0 % (2.0-10.0) 01/10/19 15:10 Eosinophils % 4.3 % (0.0-5.0) 01/10/19 15:10 Basophils % 0.0 % (0.0-2.0) 01/10/19 15:10 Sodium 131 mEq/L (136-145) L 01/10/19 15:10 Potassium 4.2 mEq/L (3.5-5.1) 01/10/19 15:10 Chloride 96 mEq/L (98-107) L 01/10/19 15:10 Carbon Dioxide 23.9 mEq/L (21.0-31.0) 01/10/19 15:10 Anion Gap 15.3 (7.0-16.0) 01/10/19 15:10 BUN 18 mg/dL (7-25) 01/10/19 15:10 Creatinine 1.0 mg/dL (0.6-1.2) 01/10/19 15:10 Est GFR ( Amer) TNP 01/10/19 15:10 Est GFR (Non-Af Amer) TNP 01/10/19 15:10 BUN/Creatinine Ratio 18.0 01/10/19 15:10 Glucose 363 mg/dL (70-105) H 01/10/19 15:10 POC Glucose 190 MG/DL (70 - 105) H 02/10/19 16:51 Calcium 9.6 mg/dL (8.6-10.3) 01/10/19 15:10 Total Bilirubin 0.5 mg/dL (0.3-1.0) 01/10/19 15:10 AST 13 U/L (13-39) 01/10/19 15:10 ALT 14 U/L (7-52) 01/10/19 15:10 Alkaline Phosphatase 66 U/L (34-104) 01/10/19 15:10 Troponin I 0.04 ng/mL (0.01-0.05) 01/19/19 22:30 Total Protein 7.1 gm/dL (6.0-8.3) 01/10/19 15:10 Albumin 3.7 gm/dL (3.7-5.3) 01/10/19 15:10 Globulin 3.4 gm/dL 01/10/19 15:10 Albumin/Globulin Ratio 1.1 (1.0-1.8) 01/10/19 15:10 Triglycerides 417 mg/dL (<150) H 01/10/19 15:10 Cholesterol 188 mg/dL (<200) 01/10/19 15:10 LDL Cholesterol Direct 109 mg/dL (75-193) 01/10/19 15:10 HDL Cholesterol 27 mg/dL (23-92) 01/10/19 15:10 TSH 1.76 uIU/ml (0.34-5.60) 01/10/19 15:10 Urine Source CLEAN C 01/14/19 17:00 Urine Color YELLOW 01/14/19 17:00 Urine Clarity CLOUDY (CLEAR) H 01/14/19 17:00 Urine pH 6.5 (4.6 - 8.0) 01/14/19 17:00 Ur Specific [place] <= 1.005 (1.005-1.030) 01/14/19 17:00 Urine Protein NEGATIVE mg/dL (NEGATIVE) 01/14/19 17:00 Urine Glucose (UA) 100 mg/dL (NEGATIVE) H 01/14/19 17:00 Urine Ketones NEGATIVE mg/dL (NEGATIVE) 01/14/19 17:00 Urine Blood SMALL (NEGATIVE) H 01/14/19 17:00 Urine Nitrate NEGATIVE (NEGATIVE) 01/14/19 17:00 Urine Bilirubin NEGATIVE (NEGATIVE) 01/14/19 17:00 Urine Urobilinogen 0.2 E.U./dL (0.2 - 1.0) 01/14/19 17:00 Ur Leukocyte Esterase MODERATE (NEGATIVE) H 01/14/19 17:00 Urine RBC 2-5 /hpf (0-5) 01/14/19 17:00 Urine WBC 6-10 /hpf (0-5) H 01/14/19 17:00 Ur Epithelial Cells FEW /lpf (FEW) 01/14/19 17:00 Urine Bacteria MANY /hpf (NONE SEEN) H 01/14/19 17:00 RPR NONREACTIVE (NONREACTIVE) 01/10/19 15:10 - Physical Exam Vitals and I&O: Vital Signs Temp 98.1 F 02/10/19 14:21 Pulse 79 02/10/19 18:20 Resp 20 02/10/19 18:20 BP 158/78 02/10/19 17:34 Pulse Ox 94 02/10/19 18:20 Intake & Output 02/10/19 02/10/19 02/11/19 06:59 18:59 06:59 Intake Total 1000 Balance 1000 Intake: Oral 1000 Other: # Voids 5 # Bowel Movements 2 Active Medications: Current Medications Acetaminophen (Tylenol Extra Strength) 500 mg PO Q4H PRN PRN Reason: Pain or Fever >101 Stop: 03/12/19 00:41 Last Admin: 02/09/19 18:22 Dose: 500 mg Al Hydrox/Mg Hydrox/Simethicone (Maalox) 30 ml PO Q4HR PRN PRN Reason: GI DISTRESS Stop: 03/11/19 19:56 Albuterol/Ipratropium (Duoneb Neb) 3 ml HHN Q4H PRN PRN Reason: Wheezing Stop: 03/12/19 00:48 Last Admin: 01/27/19 07:28 Dose: 3 ml Aripiprazole (Abilify) 30 mg PO DAILY [facility]; Protocol Stop: 03/17/19 08:59 Last Admin: 02/10/19 09:28 Dose: 30 mg Aspirin (Ecotrin) 81 mg PO DAILY [facility] Stop: 03/12/19 08:59 Last Admin: 02/10/19 09:28 Dose: 81 mg Atorvastatin Calcium (Lipitor) 20 mg PO HS [facility]; Protocol Stop: 03/12/19 20:59 Last Admin: 02/09/19 21:20 Dose: 20 mg Brimonidine Tartrate (Alphagan 0.1% Oph Soln) 1 drop EACH EYE TID [facility] Stop: 03/12/19 08:59 Last Admin: 02/10/19 17:34 Dose: Not Given Carvedilol (Coreg) 12.5 mg PO BID [facility] Stop: 03/21/19 08:59 Last Admin: 02/10/19 17:34 Dose: 12.5 mg Clonazepam (Klonopin) 0.5 mg PO BID [facility]; Protocol Stop: 04/05/19 16:59 Last Admin: 02/10/19 17:33 Dose: 0.5 mg Docusate Sodium (Colace) 100 mg PO BID [facility] Stop: 03/12/19 08:59 Last Admin: 02/10/19 17:33 Dose: 100 mg Duloxetine HCl (Cymbalta) 60 mg PO DAILY [facility]; Protocol Stop: 03/13/19 11:59 Last Admin: 02/10/19 09:27 Dose: 60 mg Fluticasone Propionate (Flonase) 1 spr NS DAILY [facility] Stop: 03/12/19 08:59 Last Admin: 02/10/19 09:31 Dose: 1 spr Glucagon (Glucagen) 1 mg IM PRN PRN PRN Reason: BS below 70 Stop: 03/11/19 23:24 Haloperidol Decanoate (Haldol Dec) 50 mg IM QMONTH [facility]; Protocol Stop: 03/17/19 15:59 Last Admin: 01/16/19 16:34 Dose: 50 mg Haloperidol Lactate (Haldol Concentrate 10mg/5ml Susp) 5 mg PO BID [facility]; Protocol Stop: 03/18/19 08:59 Last Admin: 02/10/19 17:34 Dose: 5 mg Hydralazine HCl (Apresoline) 10 mg PO BID [facility] Stop: 03/12/19 08:59 Last Admin: 02/10/19 17:33 Dose: 10 mg Ibuprofen (Motrin) 600 mg PO Q8H PRN PRN Reason: breakthrough pain Stop: 03/12/19 00:35 Last Admin: 01/23/19 12:55 Dose: 600 mg Insulin Glargine (Lantus Insulin) 26 units SUBQ HS [facility] Stop: 03/12/19 20:59 Last Admin: 02/09/19 21:36 Dose: 26 units Insulin Human Lispro (Humalog Insulin Sliding Scale) 0 units SUBQ ACHS [facility]; Protocol Stop: 03/11/19 20:59 Last Admin: 02/10/19 17:33 Dose: Not Given Isosorbide Dinitrate (Isordil) 10 mg PO Q8HR [facility] Stop: 03/12/19 04:59 Last Admin: 02/10/19 17:34 Dose: Not Given Latanoprost (Xalatan 0.005% [facility]) 1 drop EACH EYE HS [facility] Stop: 03/12/19 20:59 Last Admin: 02/09/19 21:19 Dose: 1 drop Levothyroxine Sodium (Synthroid) 0.075 mg PO QDAC [facility] Stop: 03/12/19 07:29 Last Admin: 02/10/19 06:54 Dose: 0.075 mg Loratadine (Claritin) 10 mg PO DAILY [facility] Stop: 03/12/19 08:59 Last Admin: 02/10/19 09:31 Dose: 10 mg Losartan Potassium (Cozaar) 50 mg PO DAILY [facility] Stop: 03/12/19 08:59 Last Admin: 02/10/19 09:27 Dose: 50 mg Magnesium Hydroxide (Milk Of Magnesia) 30 ml PO HS PRN PRN Reason: Constipation Multivitamins/Vitamin C (Theragran) 1 tab PO DAILY [facility] Stop: 03/12/19 08:59 Last Admin: 02/10/19 09:31 Dose: 1 tab Naproxen (Naprosyn) 500 mg PO BIDWM [facility] Stop: 03/20/19 17:59 Last Admin: 02/10/19 17:34 Dose: 500 mg Nitroglycerin (Nitrostat) 0.4 mg SL Q5MIN PRN PRN Reason: CHEST PAIN Stop: 03/11/19 23:24 Last Admin: 01/19/19 16:46 Dose: 0.4 mg Oxycodone/Acetaminophen (Percocet 5/325mg Oral Tab) 1 tab PO Q8H PRN PRN Reason: severe pain (7-10) Stop: 03/12/19 00:44 Last Admin: 02/07/19 23:11 Dose: 1 tab Senna (Senna) 17.2 mg PO HS [facility] Stop: 03/12/19 20:59 Last Admin: 02/09/19 21:19 Dose: 17.2 mg Sodium Phosphate (Fleet Enema) 135 ml RC DAILY PRN PRN Reason: Constipation Stop: 03/11/19 23:24 Vitamin B Complex/Vit C/Folic Acid (Vitamin B Complex W/Vitamin C) 1 tab PO DAILY [facility] Stop: 03/12/19 08:59 Last Admin: 02/10/19 09:29 Dose: 1 tab Zolpidem Tartrate (Ambien) 5 mg PO HS PRN PRN Reason: Insomnia Stop: 03/11/19 19:56 Last Admin: 02/05/19 21:25 Dose: 5 mg General: No acute distress HEENT: PERRLA Neck: Supple, JVD Cardiovascular: Regular rate, Normal S1, Normal S2 Lungs: Clear to auscultation Abdomen: Bowel sounds, Soft Assessment/Plan - Assessment Assessment: 1.DM. 2.HTN. 3.HYPOTHYROIDISM. 4.PSYCHOSIS - Plan Plan: continue current treatment Nutritional Asmnt/Malnutr-PDOC - Dietary Evaluation Malnutrition Findings (Please click <Entered> for more info): Nutritional Asmnt/Malnutrition Start: 01/11/19 12: 41 Text: Status: Complete Freq: Protocol: Document 01/11/19 12:41 AXEL (Rec: 01/11/19 12:45 [email or web address] [email or web address]) Nutritional Asmnt/Malnutrition Patient General Information Nutritional Screening Consult Diagnosis PSYCHOSIS Pertinent Medical Hx/Surgical Hx HTN, DM, HYPOTHYROIDISM, PSYCHOSIS, DJD Subjective Information IA CONSULT: DM PT IS A 78 YEAR OLD FEMALE [facility] AD[facility] ON [facility] D/T AGGRESSIVE BEHAVIOR. PT WAS HERE RECENTLY, DISCHARGED ON . PER MEAL/NUTRITION ACTIVITY RECORD, PT TYPICALLY ATE 100% MEALS. HT: 59 WT: 310 LB (141 KG) ABW: 186 LB (84.66 KG) BMI: 45.78 (OBESE III) GI: WNL, NON-TENDER, LARGE, ROUND BM: NOT NOTED I/O: 240/NOT NOTED SKIN: SKIN BREAKDOWN TO BUTTOCKS AREA LUIS: NOT NOTED DIET ORDER: CCHO 45GM, PUREED ESTIMATED ENERGY NEEDS: (OBESE III, ABW) [id number] KCALS (20-25 KCALS/ KG) 68-85 G PRO (0.8-1.0 G/KG) 0702-1077 ML (25-30 ML/KG) PT PO INTAKE: 100% SNACK PROVIDED. Current Diet Order/ Nutrition Support CCHO 45GM, PUREED Pertinent Medications MAALOX (PRN), ALBUTEROL (PRN), LIPITOR, COREG, COLACE, GLUCAGON (PRN), LANTUS, SYNTHROID, INS-SS, COZAAR, MOM (PRN), THEREGRAN, SENNA, FLEET ENEMA (PRN), VIT B COMLPEX WITH VIT C Pertinent Labs 01/10: NA 131, GLUCOSE 363 POC GLUCOSE (LAST 24 HOURS): 257, 250 Nutritional Hx/Data Height 1.75 m Height (Calculated Centimeters) 175.3 Current Weight (lbs) 140.614 kg Weight (Calculated Kilograms) 140.6 Weight (Calculated Grams) 608804.6 [place] Body Weight 145 % [place] Body Weight 214 Body Mass Index (BMI) 45.8 Weight Status Morbidly Obese GI Symptoms GI Symptoms None Last BM NOT NOTED Skin Integrity/Comment: SKIN BREAKDOWN TO BUTTOCKS AREA LUIS: NOT NOTED Current %PO Good (75-100%) Estimated Nutritional Goals BEE in Kcals: Adj wt of IBW Calories/Kcals/Kg 20-25 Kcals Calculated 3693-6646 Protein: Adj wt of IBW Protein g/k.8-1.0 Protein Calculated 68-85 Fluid: ml 3855-6594 ML (25-30 ML/KG) Nutritional Problem 1. Problem Problem ALTERED NUTRITION RELATED LABS Etiology R/T ENDOCRINE DYSFUNCTION Signs/Symptoms: AEB HX DM AND GLUCOSE 363 Malnutrition Related to Morbid Obesity Malnutrition related to morbid obesity Weight 200% of ideal wt Query Text:(Any 1 Criteria met) Malnutrition related to morbid obesity Yes Intervention/Recommendation Comments [facility]. [facility] DIET ORDERED. 2. CONTNIUE ANTIHYPERGLYCEMIC MEDICATION FOR GLUCOSE CONTROL PER MD ORDER. Expected Outcomes/Goals Expected Outcomes/Goals 1. PO INTAKE TO MEET 75% OF NUTRITIONAL NEEDS. 2. MONITOR PO INTAKE, WT, NUTRITION RELATED LABS AND SKIN INTEGRITY. 3. F/U LOW RISK IN 7 DAYS, 01/18
[2019-02-10] MEDS: Insulin Glargine 100 units/ml 10ml Vial SUBQ SCH (21:53)
[2019-02-10] MEDS: Atorvastatin Calcium 10 MG TAB PO SCH (21:53)
[2019-02-11] MEDS: Levothyroxine 0.075 Mg Tab PO SCH (06:50)
[2019-02-11] MEDS: INSULIN LISPRO SLIDING SCALE 100 UNITS/ML UNIT SUBQ SCH ×4 (06:51→21:57)
[2019-02-11] MEDS: Haldol Oral Sol.(concentrate) 10 mg/5 mL Udc PO SCH ×2 (09:12→17:27)
[2019-02-11] MEDS: Vitamin B Complex w/Vitamin C Tab PO SCH (09:20)
[2019-02-11] MEDS: Multivitamin Tab PO SCH (09:20)
[2019-02-11] MEDS: Fluticasone Propionate Nasal 1 SPR SPR NS SCH (09:21)
--- NOTE | 2019-02-11 19:49 | Progress Notes ---
DATE: 02/11/2019 SUBJECTIVE: Chart reviewed and the patient interviewed. Also discussed the patient's condition with the staff and reviewed records and labs. The patient seems to be less demanding and less irritable. The patient also is interacting more with peers and with others. She also still feels hopeless and seems to be more depressed with her long hospital stay. She also is still interacting more and she is cooperative with her medications with no side effects of medications. ASSESSMENT: The patient is depressed and still waiting for placement. TREATMENT PLAN: Continue monitoring her behavior and her condition closely. Also, continue Klonopin 0.5 mg twice a day and Abilify 30 mg every day. Also, continue working on discharge plans and placement issue. The patient also is still taking Cymbalta 60 mg every day and Haldol Decanoate and Haldol liquid 5 mg twice a day as well as long-acting Haldol. No side effects of medications. JOB# [id number]
--- NOTE | 2019-02-11 20:57 | Internal Medicine Prog Note ---
Internal Medicine Subjective - Subjective Service Date: 02/11/19 Patient seen and examined:: with staff (SHE DENIES ANY CHEST PAIN OR SOB) Patient is:: awake, verbal, in bed, talking Per staff patient has:: no adverse event Internal Medicine Objective - Results Result Diagrams: 01/10/19 15:10 01/10/19 15:10 Recent Labs: Laboratory Last Values WBC 8.4 Th/cmm (4.8-10.8) 01/10/19 15:10 RBC 5.16 Mil/cmm (3.80-5.20) 01/10/19 15:10 Hgb 14.9 gm/dL (12-16) 01/10/19 15:10 Hct 44.3 % (41.0-60) 01/10/19 15:10 MCV 85.8 fl (81-100) 01/10/19 15:10 MCH 28.9 pg (27.0-31.0) 01/10/19 15:10 MCHC Differential 33.7 pg (28.0-36.0) 01/10/19 15:10 RDW 12.1 % (11.5-20.0) 01/10/19 15:10 Plt Count 291 Th/cmm (150-400) 01/10/19 15:10 MPV 7.3 fl 01/10/19 15:10 Neutrophils % 59.5 % (40.0-80.0) 01/10/19 15:10 Lymphocytes % 31.2 % (20.0-50.0) 01/10/19 15:10 Monocytes % 5.0 % (2.0-10.0) 01/10/19 15:10 Eosinophils % 4.3 % (0.0-5.0) 01/10/19 15:10 Basophils % 0.0 % (0.0-2.0) 01/10/19 15:10 Sodium 131 mEq/L (136-145) L 01/10/19 15:10 Potassium 4.2 mEq/L (3.5-5.1) 01/10/19 15:10 Chloride 96 mEq/L (98-107) L 01/10/19 15:10 Carbon Dioxide 23.9 mEq/L (21.0-31.0) 01/10/19 15:10 Anion Gap 15.3 (7.0-16.0) 01/10/19 15:10 BUN 18 mg/dL (7-25) 01/10/19 15:10 Creatinine 1.0 mg/dL (0.6-1.2) 01/10/19 15:10 Est GFR ( Amer) TNP 01/10/19 15:10 Est GFR (Non-Af Amer) TNP 01/10/19 15:10 BUN/Creatinine Ratio 18.0 01/10/19 15:10 Glucose 363 mg/dL (70-105) H 01/10/19 15:10 POC Glucose 151 MG/DL (70 - 105) H 02/11/19 16:47 Calcium 9.6 mg/dL (8.6-10.3) 01/10/19 15:10 Total Bilirubin 0.5 mg/dL (0.3-1.0) 01/10/19 15:10 AST 13 U/L (13-39) 01/10/19 15:10 ALT 14 U/L (7-52) 01/10/19 15:10 Alkaline Phosphatase 66 U/L (34-104) 01/10/19 15:10 Troponin I 0.04 ng/mL (0.01-0.05) 01/19/19 22:30 Total Protein 7.1 gm/dL (6.0-8.3) 01/10/19 15:10 Albumin 3.7 gm/dL (3.7-5.3) 01/10/19 15:10 Globulin 3.4 gm/dL 01/10/19 15:10 Albumin/Globulin Ratio 1.1 (1.0-1.8) 01/10/19 15:10 Triglycerides 417 mg/dL (<150) H 01/10/19 15:10 Cholesterol 188 mg/dL (<200) 01/10/19 15:10 LDL Cholesterol Direct 109 mg/dL (75-193) 01/10/19 15:10 HDL Cholesterol 27 mg/dL (23-92) 01/10/19 15:10 TSH 1.76 uIU/ml (0.34-5.60) 01/10/19 15:10 Urine Source CLEAN C 01/14/19 17:00 Urine Color YELLOW 01/14/19 17:00 Urine Clarity CLOUDY (CLEAR) H 01/14/19 17:00 Urine pH 6.5 (4.6 - 8.0) 01/14/19 17:00 Ur Specific [place] <= 1.005 (1.005-1.030) 01/14/19 17:00 Urine Protein NEGATIVE mg/dL (NEGATIVE) 01/14/19 17:00 Urine Glucose (UA) 100 mg/dL (NEGATIVE) H 01/14/19 17:00 Urine Ketones NEGATIVE mg/dL (NEGATIVE) 01/14/19 17:00 Urine Blood SMALL (NEGATIVE) H 01/14/19 17:00 Urine Nitrate NEGATIVE (NEGATIVE) 01/14/19 17:00 Urine Bilirubin NEGATIVE (NEGATIVE) 01/14/19 17:00 Urine Urobilinogen 0.2 E.U./dL (0.2 - 1.0) 01/14/19 17:00 Ur Leukocyte Esterase MODERATE (NEGATIVE) H 01/14/19 17:00 Urine RBC 2-5 /hpf (0-5) 01/14/19 17:00 Urine WBC 6-10 /hpf (0-5) H 01/14/19 17:00 Ur Epithelial Cells FEW /lpf (FEW) 01/14/19 17:00 Urine Bacteria MANY /hpf (NONE SEEN) H 01/14/19 17:00 RPR NONREACTIVE (NONREACTIVE) 01/10/19 15:10 - Physical Exam Vitals and I&O: Vital Signs Temp 98.9 F 02/11/19 19:44 Pulse 85 02/11/19 19:44 Resp 20 02/11/19 19:44 BP 166/74 02/11/19 19:44 Pulse Ox 92 02/11/19 19:44 Intake & Output 02/11/19 02/11/19 02/12/19 06:59 18:59 06:59 Intake Total 240 240 Balance 240 240 Intake: Oral 240 240 Other: # Voids 4 2 2 # Bowel Movements 0 1 Active Medications: Current Medications Acetaminophen (Tylenol Extra Strength) 500 mg PO Q4H PRN PRN Reason: Pain or Fever >101 Stop: 03/12/19 00:41 Last Admin: 02/09/19 18:22 Dose: 500 mg Al Hydrox/Mg Hydrox/Simethicone (Maalox) 30 ml PO Q4HR PRN PRN Reason: GI DISTRESS Stop: 03/11/19 19:56 Albuterol/Ipratropium (Duoneb Neb) 3 ml HHN Q4H PRN PRN Reason: Wheezing Stop: 03/12/19 00:48 Last Admin: 01/27/19 07:28 Dose: 3 ml Aripiprazole (Abilify) 30 mg PO DAILY [facility]; Protocol Stop: 03/17/19 08:59 Last Admin: 02/11/19 09:19 Dose: 30 mg Aspirin (Ecotrin) 81 mg PO DAILY [facility] Stop: 03/12/19 08:59 Last Admin: 02/11/19 09:20 Dose: 81 mg Atorvastatin Calcium (Lipitor) 20 mg PO HS [facility]; Protocol Stop: 03/12/19 20:59 Last Admin: 02/10/19 21:53 Dose: 20 mg Brimonidine Tartrate (Alphagan 0.1% Oph Soln) 1 drop EACH EYE TID [facility] Stop: 03/12/19 08:59 Last Admin: 02/11/19 13:53 Dose: 1 drop Carvedilol (Coreg) 12.5 mg PO BID [facility] Stop: 03/21/19 08:59 Last Admin: 02/11/19 17:28 Dose: 12.5 mg Clonazepam (Klonopin) 0.5 mg PO BID [facility]; Protocol Stop: 04/05/19 16:59 Last Admin: 02/11/19 17:28 Dose: 0.5 mg Docusate Sodium (Colace) 100 mg PO BID [facility] Stop: 03/12/19 08:59 Last Admin: 02/11/19 17:27 Dose: 100 mg Duloxetine HCl (Cymbalta) 60 mg PO DAILY [facility]; Protocol Stop: 03/13/19 11:59 Last Admin: 02/11/19 09:19 Dose: 60 mg Fluticasone Propionate (Flonase) 1 spr NS DAILY [facility] Stop: 03/12/19 08:59 Last Admin: 02/11/19 09:21 Dose: 1 spr Glucagon (Glucagen) 1 mg IM PRN PRN PRN Reason: BS below 70 Stop: 03/11/19 23:24 Haloperidol Decanoate (Haldol Dec) 50 mg IM QMONTH [facility]; Protocol Stop: 03/17/19 15:59 Last Admin: 01/16/19 16:34 Dose: 50 mg Haloperidol Lactate (Haldol Concentrate 10mg/5ml Susp) 5 mg PO BID [facility]; Protocol Stop: 03/18/19 08:59 Last Admin: 02/11/19 17:27 Dose: 5 mg Hydralazine HCl (Apresoline) 10 mg PO BID [facility] Stop: 03/12/19 08:59 Last Admin: 02/11/19 17:28 Dose: 10 mg Ibuprofen (Motrin) 600 mg PO Q8H PRN PRN Reason: breakthrough pain Stop: 03/12/19 00:35 Last Admin: 01/23/19 12:55 Dose: 600 mg Insulin Glargine (Lantus Insulin) 26 units SUBQ HS [facility] Stop: 03/12/19 20:59 Last Admin: 02/10/19 21:53 Dose: 26 units Insulin Human Lispro (Humalog Insulin Sliding Scale) 0 units SUBQ ACHS [facility]; Protocol Stop: 03/11/19 20:59 Last Admin: 02/11/19 17:27 Dose: Not Given Isosorbide Dinitrate (Isordil) 10 mg PO Q8HR [facility] Stop: 03/12/19 04:59 Last Admin: 02/11/19 13:53 Dose: Not Given Latanoprost (Xalatan 0.005% Oph Sol) 1 drop EACH EYE HS [facility] Stop: 03/12/19 20:59 Last Admin: 02/10/19 21:53 Dose: 1 drop Levothyroxine Sodium (Synthroid) 0.075 mg PO QDAC [facility] Stop: 03/12/19 07:29 Last Admin: 02/11/19 06:50 Dose: 0.075 mg Loratadine (Claritin) 10 mg PO DAILY [facility] Stop: 03/12/19 08:59 Last Admin: 02/11/19 09:20 Dose: 10 mg Losartan Potassium (Cozaar) 50 mg PO DAILY [facility] Stop: 03/12/19 08:59 Last Admin: 02/11/19 09:18 Dose: 50 mg Magnesium Hydroxide (Milk Of Magnesia) 30 ml PO HS PRN PRN Reason: Constipation Multivitamins/Vitamin C (Theragran) 1 tab PO DAILY [facility] Stop: 03/12/19 08:59 Last Admin: 02/11/19 09:20 Dose: 1 tab Naproxen (Naprosyn) 500 mg PO BIDWM [facility] Stop: 03/20/19 17:59 Last Admin: 02/11/19 17:28 Dose: 500 mg Nitroglycerin (Nitrostat) 0.4 mg SL Q5MIN PRN PRN Reason: CHEST PAIN Stop: 03/11/19 23:24 Last Admin: 01/19/19 16:46 Dose: 0.4 mg Oxycodone/Acetaminophen (Percocet 5/325mg Oral Tab) 1 tab PO Q8H PRN PRN Reason: severe pain (7-10) Stop: 03/12/19 00:44 Last Admin: 02/07/19 23:11 Dose: 1 tab Senna (Senna) 17.2 mg PO HS [facility] Stop: 03/12/19 20:59 Last Admin: 02/10/19 21:52 Dose: 17.2 mg Sodium Phosphate (Fleet Enema) 135 ml RC DAILY PRN PRN Reason: Constipation Stop: 03/11/19 23:24 Vitamin B Complex/Vit C/Folic Acid (Vitamin B Complex W/Vitamin C) 1 tab PO DAILY [facility] Stop: 03/12/19 08:59 Last Admin: 02/11/19 09:20 Dose: 1 tab Zolpidem Tartrate (Ambien) 5 mg PO HS PRN PRN Reason: Insomnia Stop: 03/11/19 19:56 Last Admin: 02/10/19 21:53 Dose: 5 mg General: alert HEENT: NC/AT, PERRLA, EOMI, anicteric sclerae, throat clear Neck: Supple, No JVD, No thyromegaly, +2 carotid pulse wo bruit, No LAD Lungs: CTAB Cardiovascular: RRR, Normal S1, Normal S2, without murmur Abdomen: soft, non-tender, non-distended Extremities: clear Neurological: no change Internal Medicine Assmt/Plan - Assessment Assessment: 1.DM. 2.HTN. 3.HYPOTHYROIDISM. 5.PSYCHOSIS - Plan Plan: CONTINUE ON CURRENT MEDICATION AND DIET. Nutritional Asmnt/Malnutr-PDOC - Dietary Evaluation Malnutrition Findings (Please click <Entered> for more info): Nutritional Asmnt/Malnutrition Start: 01/11/19 12: 41 Text: Status: Complete Freq: Protocol: Document 01/11/19 12:41 AXEL (Rec: 01/11/19 12:45 [email or web address] [email or web address]) Nutritional Asmnt/Malnutrition Patient General Information Nutritional Screening Consult Diagnosis PSYCHOSIS Pertinent Medical Hx/Surgical Hx HTN, DM, HYPOTHYROIDISM, PSYCHOSIS, DJD Subjective Information IA CONSULT: DM PT IS A 78 YEAR OLD FEMALE [facility] ON [facility] D/T AGGRESSIVE BEHAVIOR. PT WAS HERE RECENTLY, DISCHARGED ON . PER MEAL/NUTRITION ACTIVITY RECORD, PT TYPICALLY ATE 100% MEALS. HT: 59 WT: 310 LB (141 KG) ABW: 186 LB (84.66 KG) BMI: 45.78 (OBESE III) GI: WNL, NON-TENDER, LARGE, ROUND BM: NOT NOTED I/O: 240/NOT NOTED SKIN: SKIN BREAKDOWN TO BUTTOCKS AREA LUIS: NOT NOTED [facility]ET [facility], PUREED ESTIMATED ENERGY NEEDS: (OBESE III, ABW) 9333-2377 KCALS (20-25 KCALS/ KG) 68-85 G PRO (0.8-1.0 G/KG) 0032-4811 ML (25-30 ML/KG) PT PO INTAKE: 100% SNACK PROVIDED. Current Diet Order/ Nutrition Support [facility], PUREED Pertinent Medications MAALOX (PRN), ALBUTEROL (PRN), LIPITOR, COREG, COLACE, GLUCAGON (PRN), LANTUS, SYNTHROID, INS-SS, COZAAR, MOM (PRN), THEREGRAN, SENNA, FLEET ENEMA (PRN), VIT B COMLPEX WITH VIT C Pertinent Labs 01/10: NA 131, GLUCOSE 363 POC GLUCOSE (LAST 24 HOURS): 257, 250 Nutritional Hx/Data Height 1.75 m Height (Calculated Centimeters) 175.3 Current Weight (lbs) 140.614 kg Weight (Calculated Kilograms) 140.6 Weight (Calculated Grams) 304011.6 [place] Body Weight 145 % [place] Body Weight 214 Body Mass Index (BMI) 45.8 Weight Status Morbidly Obese GI Symptoms GI Symptoms None Last BM NOT NOTED Skin Integrity/Comment: SKIN BREAKDOWN TO BUTTOCKS AREA LUIS: NOT NOTED Current %PO Good (75-100%) Estimated Nutritional Goals BEE in Kcals: Adj wt of IBW Calories/Kcals/Kg 20-25 Kcals Calculated 5021-2079 Protein: Adj wt of IBW Protein g/k.8-1.0 Protein Calculated 68-85 Fluid: ml 2244-7408 ML (25-30 ML/KG) Nutritional Problem 1. Problem Problem ALTERED NUTRITION RELATED LABS Etiology R/T ENDOCRINE DYSFUNCTION Signs/Symptoms: AEB HX DM AND GLUCOSE 363 Malnutrition Related to Morbid Obesity Malnutrition related to morbid obesity Weight 200% of ideal wt Query Text:(Any 1 Criteria met) Malnutrition related to morbid obesity Yes Intervention/Recommendation Comments 1. CONTINUE WITH [facility] 45GM, PUREED DIET ORDERED. 2. CONTNIUE ANTIHYPERGLYCEMIC MEDICATION FOR GLUCOSE CONTROL PER MD ORDER. Expected Outcomes/Goals Expected Outcomes/Goals 1. PO INTAKE TO MEET 75% OF NUTRITIONAL NEEDS. 2. MONITOR PO INTAKE, WT, NUTRITION RELATED LABS AND SKIN INTEGRITY. 3. F/U LOW RISK IN 7 DAYS, 01/18
[2019-02-11] MEDS: Atorvastatin Calcium 10 MG TAB PO SCH (21:59)
[2019-02-11] MEDS: Insulin Glargine 100 units/ml 10ml Vial SUBQ SCH (21:59)
[2019-02-12] MEDS: INSULIN LISPRO SLIDING SCALE 100 UNITS/ML UNIT SUBQ SCH ×4 (06:37→21:18)
[2019-02-12] MEDS: Levothyroxine 0.075 Mg Tab PO SCH (06:38)
[2019-02-12] MEDS: Haldol Oral Sol.(concentrate) 10 mg/5 mL Udc PO SCH ×2 (08:55→17:26)
[2019-02-12] MEDS: Vitamin B Complex w/Vitamin C Tab PO SCH (08:56)
[2019-02-12] MEDS: Multivitamin Tab PO SCH (08:57)
[2019-02-12] MEDS: Fluticasone Propionate Nasal 1 SPR SPR NS SCH (08:59)
--- NOTE | 2019-02-12 10:16 | Progress Notes ---
DATE: 02/12/2019 PSYCHIATRIC PROGRESS NOTE SUBJECTIVE: Chart reviewed and the patient interviewed. Also discussed the patient's condition with the staff and reviewed records and labs. The patient continued to be severely depressed. The patient also is anxious and is withdrawn and interacting minimally with others. Also, she started to be demanding and hostile with the staff and also started to refuse medications again. The patient said that she is frustrated from her long hospital stay, but at the same time, no other places accepted the patient yet and is still working on trying to find placement for the patient. Otherwise, the patient is argumentative and is still depressed, but denies suicide. ASSESSMENT: The patient is still depressed and anxious. TREATMENT PLAN: Continue to monitor her behavior closely. Also, case assistant still working on placement issue and on discharge plans. [facility]# [id number]
[2019-02-12] MEDS: Atorvastatin Calcium 10 MG TAB PO SCH (21:47)
[2019-02-12] MEDS: Insulin Glargine 100 units/ml 10ml Vial SUBQ SCH (21:47)
--- NOTE | 2019-02-12 21:48 | Internal Medicine Prog Note ---
Internal Medicine Subjective - Subjective Service Date: 02/12/19 Patient seen and examined:: without staff (SHE FEELS WELL) Patient is:: awake, verbal, in bed, talking Per staff patient has:: no adverse event Internal Medicine Objective - Results Result Diagrams: 01/10/19 15:10 01/10/19 15:10 Recent Labs: Laboratory Last Values WBC 8.4 Th/cmm (4.8-10.8) 01/10/19 15:10 RBC 5.16 Mil/cmm (3.80-5.20) 01/10/19 15:10 Hgb 14.9 gm/dL (12-16) 01/10/19 15:10 Hct 44.3 % (41.0-60) 01/10/19 15:10 MCV 85.8 fl (81-100) 01/10/19 15:10 MCH 28.9 pg (27.0-31.0) 01/10/19 15:10 MCHC Differential 33.7 pg (28.0-36.0) 01/10/19 15:10 RDW 12.1 % (11.5-20.0) 01/10/19 15:10 Plt Count 291 Th/cmm (150-400) 01/10/19 15:10 MPV 7.3 fl 01/10/19 15:10 Neutrophils % 59.5 % (40.0-80.0) 01/10/19 15:10 Lymphocytes % 31.2 % (20.0-50.0) 01/10/19 15:10 Monocytes % 5.0 % (2.0-10.0) 01/10/19 15:10 Eosinophils % 4.3 % (0.0-5.0) 01/10/19 15:10 Basophils % 0.0 % (0.0-2.0) 01/10/19 15:10 Sodium 131 mEq/L (136-145) L 01/10/19 15:10 Potassium 4.2 mEq/L (3.5-5.1) 01/10/19 15:10 Chloride 96 mEq/L (98-107) L 01/10/19 15:10 Carbon Dioxide 23.9 mEq/L (21.0-31.0) 01/10/19 15:10 Anion Gap 15.3 (7.0-16.0) 01/10/19 15:10 BUN 18 mg/dL (7-25) 01/10/19 15:10 Creatinine 1.0 mg/dL (0.6-1.2) 01/10/19 15:10 Est GFR ( Amer) TNP 01/10/19 15:10 Est GFR (Non-Af Amer) TNP 01/10/19 15:10 BUN/Creatinine Ratio 18.0 01/10/19 15:10 Glucose 363 mg/dL (70-105) H 01/10/19 15:10 POC Glucose 151 MG/DL (70 - 105) H 02/11/19 16:47 Calcium 9.6 mg/dL (8.6-10.3) 01/10/19 15:10 Total Bilirubin 0.5 mg/dL (0.3-1.0) 01/10/19 15:10 AST 13 U/L (13-39) 01/10/19 15:10 ALT 14 U/L (7-52) 01/10/19 15:10 Alkaline Phosphatase 66 U/L (34-104) 01/10/19 15:10 Troponin I 0.04 ng/mL (0.01-0.05) 01/19/19 22:30 Total Protein 7.1 gm/dL (6.0-8.3) 01/10/19 15:10 Albumin 3.7 gm/dL (3.7-5.3) 01/10/19 15:10 Globulin 3.4 gm/dL 01/10/19 15:10 Albumin/Globulin Ratio 1.1 (1.0-1.8) 01/10/19 15:10 Triglycerides 417 mg/dL (<150) H 01/10/19 15:10 Cholesterol 188 mg/dL (<200) 01/10/19 15:10 LDL Cholesterol Direct 109 mg/dL (75-193) 01/10/19 15:10 HDL Cholesterol 27 mg/dL (23-92) 01/10/19 15:10 TSH 1.76 uIU/ml (0.34-5.60) 01/10/19 15:10 Urine Source CLEAN C 01/14/19 17:00 Urine Color YELLOW 01/14/19 17:00 Urine Clarity CLOUDY (CLEAR) H 01/14/19 17:00 Urine pH 6.5 (4.6 - 8.0) 01/14/19 17:00 Ur Specific [place] <= 1.005 (1.005-1.030) 01/14/19 17:00 Urine Protein NEGATIVE mg/dL (NEGATIVE) 01/14/19 17:00 Urine Glucose (UA) 100 mg/dL (NEGATIVE) H 01/14/19 17:00 Urine Ketones NEGATIVE mg/dL (NEGATIVE) 01/14/19 17:00 Urine Blood SMALL (NEGATIVE) H 01/14/19 17:00 Urine Nitrate NEGATIVE (NEGATIVE) 01/14/19 17:00 Urine Bilirubin NEGATIVE (NEGATIVE) 01/14/19 17:00 Urine Urobilinogen 0.2 E.U./dL (0.2 - 1.0) 01/14/19 17:00 Ur Leukocyte Esterase MODERATE (NEGATIVE) H 01/14/19 17:00 Urine RBC 2-5 /hpf (0-5) 01/14/19 17:00 Urine WBC 6-10 /hpf (0-5) H 01/14/19 17:00 Ur Epithelial Cells FEW /lpf (FEW) 01/14/19 17:00 Urine Bacteria MANY /hpf (NONE SEEN) H 01/14/19 17:00 RPR NONREACTIVE (NONREACTIVE) 01/10/19 15:10 - Physical Exam Vitals and I&O: Vital Signs Temp 97.6 F 02/12/19 20:00 Pulse 80 02/12/19 20:00 Resp 18 02/12/19 20:00 BP 163/68 02/12/19 20:00 Pulse Ox 92 02/12/19 20:00 Intake & Output 02/12/19 02/12/19 02/13/19 06:59 18:59 06:59 Intake Total 480 1300 Balance 480 1300 Intake: Oral 480 1300 Other: # Voids 2 Active Medications: Current Medications Acetaminophen (Tylenol Extra Strength) 500 mg PO Q4H PRN PRN Reason: Pain or Fever >101 Stop: 03/12/19 00:41 Last Admin: 02/09/19 18:22 Dose: 500 mg Al Hydrox/Mg Hydrox/Simethicone (Maalox) 30 ml PO Q4HR PRN PRN Reason: GI DISTRESS Stop: 03/11/19 19:56 Albuterol/Ipratropium (Duoneb Neb) 3 ml HHN Q4H PRN PRN Reason: Wheezing Stop: 03/12/19 00:48 Last Admin: 01/27/19 07:28 Dose: 3 ml Aripiprazole (Abilify) 30 mg PO DAILY [facility]; Protocol Stop: 03/17/19 08:59 Last Admin: 02/12/19 08:56 Dose: 30 mg Aspirin (Ecotrin) 81 mg PO DAILY [facility] Stop: 03/12/19 08:59 Last Admin: 02/12/19 08:56 Dose: 81 mg Atorvastatin Calcium (Lipitor) 20 mg PO HS [facility]; Protocol Stop: 03/12/19 20:59 Last Admin: 02/11/19 21:59 Dose: Not Given Brimonidine Tartrate (Alphagan 0.1% [employer]) 1 drop EACH EYE TID [facility] Stop: 03/12/19 08:59 Last Admin: 02/12/19 14:00 Dose: 1 drop Carvedilol (Coreg) 12.5 mg PO BID [facility] Stop: 03/21/19 08:59 Last Admin: 02/12/19 17:26 Dose: Not Given Docusate Sodium (Colace) 100 mg PO BID [facility] Stop: 03/12/19 08:59 Last Admin: 02/12/19 17:26 Dose: Not Given Fluticasone Propionate (Flonase) 1 spr NS DAILY [facility] Stop: 03/12/19 08:59 Last Admin: 02/12/19 08:59 Dose: 1 spr Glucagon (Glucagen) 1 mg IM PRN PRN PRN Reason: BS below 70 Stop: 03/11/19 23:24 Haloperidol Decanoate (Haldol Dec) 50 mg IM QMONTH [facility]; Protocol Stop: 03/17/19 15:59 Last Admin: 01/16/19 16:34 Dose: 50 mg Haloperidol Lactate (Haldol Concentrate 10mg/5ml Susp) 5 mg PO BID [facility]; Protocol Stop: 03/18/19 08:59 Last Admin: 02/12/19 17:26 Dose: Not Given Hydralazine HCl (Apresoline) 10 mg PO BID [facility] Stop: 03/12/19 08:59 Last Admin: 02/12/19 17:26 Dose: Not Given Ibuprofen (Motrin) 600 mg PO Q8H PRN PRN Reason: breakthrough pain Stop: 03/12/19 00:35 Last Admin: 01/23/19 12:55 Dose: 600 mg Insulin Glargine (Lantus Insulin) 26 units SUBQ HS CAL Stop: 03/12/19 20:59 Last Admin: 02/11/19 21:59 Dose: Not Given Insulin Human Lispro (Humalog Insulin Sliding Scale) 0 units SUBQ ACHS [facility]; Protocol Stop: 03/11/19 20:59 Last Admin: 02/12/19 21:18 Dose: Not Given Isosorbide Dinitrate (Isordil) 10 mg PO Q8HR [facility] Stop: 03/12/19 04:59 Last Admin: 02/12/19 14:00 Dose: Not Given Latanoprost (Xalatan 0.005% [facility] [employer] [facility]) 1 drop EACH EYE HS [facility] Stop: 03/12/19 20:59 Last Admin: 02/11/19 21:59 Dose: Not Given Levothyroxine Sodium (Synthroid) 0.075 mg PO QDAC [facility] Stop: 03/12/19 07:29 Last Admin: 02/12/19 06:38 Dose: 0.075 mg Loratadine (Claritin) 10 mg PO DAILY [facility] Stop: 03/12/19 08:59 Last Admin: 02/12/19 08:56 Dose: 10 mg Losartan Potassium (Cozaar) 50 mg PO DAILY [facility] Stop: 03/12/19 08:59 Last Admin: 02/12/19 08:57 Dose: 50 mg Magnesium Hydroxide (Milk Of Magnesia) 30 ml PO HS PRN PRN Reason: Constipation Multivitamins/Vitamin C (Theragran) 1 tab PO DAILY [facility] Stop: 03/12/19 08:59 Last Admin: 02/12/19 08:57 Dose: 1 tab Naproxen (Naprosyn) 500 mg PO BIDWM CAL Stop: 03/20/19 17:59 Last Admin: 02/12/19 17:28 Dose: Not Given Nitroglycerin (Nitrostat) 0.4 mg SL Q5MIN PRN PRN Reason: CHEST PAIN Stop: 03/11/19 23:24 Last Admin: 02/12/19 06:52 Dose: 0.4 mg Oxycodone/Acetaminophen (Percocet 5/325mg Oral Tab) 1 tab PO Q8H PRN PRN Reason: severe pain (7-10) Stop: 03/12/19 00:44 Last Admin: 02/07/19 23:11 Dose: 1 tab Senna (Senna) 17.2 mg PO HS CAL Stop: 03/12/19 20:59 Last Admin: 02/11/19 21:59 Dose: Not Given Sodium Phosphate (Fleet Enema) 135 ml RC DAILY PRN PRN Reason: Constipation Stop: 03/11/19 23:24 Vitamin B Complex/Vit C/Folic Acid (Vitamin B Complex W/Vitamin C) 1 tab PO DAILY [facility] Stop: 03/12/19 08:59 Last Admin: 02/12/19 08:56 Dose: 1 tab Zolpidem Tartrate (Ambien) 5 mg PO HS PRN PRN Reason: Insomnia Stop: 03/11/19 19:56 Last Admin: 02/10/19 21:53 Dose: 5 mg General: alert HEENT: NC/AT, PERRLA, EOMI, anicteric sclerae, throat clear Neck: Supple, No JVD, No thyromegaly, +2 carotid pulse wo bruit, No LAD Lungs: CTAB Cardiovascular: RRR, Normal S1, Normal S2, without murmur Abdomen: soft, non-tender, non-distended Extremities: clear Neurological: no change Internal Medicine Assmt/Plan - Assessment Assessment: 1.DM. 2.HTN. 3.HYPOTHYROIDISM. 5.PSYCHOSIS - Plan Plan: CONTINUE ON CURRENT MEDICATION AND DIET. Nutritional Asmnt/Malnutr-PDOC - Dietary Evaluation Malnutrition Findings (Please click <Entered> for more info): Nutritional Asmnt/Malnutrition Start: 01/11/19 12: 41 Text: Status: Complete Freq: Protocol: Document 01/11/19 12:41 AXEL (Rec: 01/11/19 12:45 [email or web address] [email or web address]) Nutritional Asmnt/Malnutrition Patient General Information Nutritional Screening Consult Diagnosis PSYCHOSIS Pertinent Medical Hx/Surgical Hx HTN, DM, HYPOTHYROIDISM, PSYCHOSIS, DJD Subjective Information IA CONSULT: DM PT IS A 78 YEAR OLD FEMALE [facility] ADM[facility]ED ON 01/10 D/T AGGRESSIVE BEHAVIOR. PT WAS HERE RECENTLY, DISCHARGED ON . PER MEAL/NUTRITION ACTIVITY RECORD, PT TYPICALLY ATE 100% MEALS. HT: 59 WT: 310 LB (141 KG) ABW: 186 LB (84.66 KG) BMI: 45.78 (OBESE III) GI: WNL, NON-TENDER, LARGE, ROUND BM: NOT NOTED I/O: 240/NOT NOTED SKIN: SKIN BREAKDOWN TO BUTTOCKS AREA LUIS: NOT NOTED DIET ORDER: CCHO 45GM, PUREED ESTIMATED ENERGY NEEDS: (OBESE III, ABW) 0847-5614 KCALS (20-25 KCALS/ KG) 68-85 G PRO (0.8-1.0 G/KG) 1042-5480 ML (25-30 ML/KG) PT PO INTAKE: 100% SNACK PROVIDED. Current Diet Order/ Nutrition Support CCHO 45GM, PUREED Pertinent Medications MAALOX (PRN), ALBUTEROL (PRN), LIPITOR, COREG, COLACE, GLUCAGON (PRN), LANTUS, SYNTHROID, INS-SS, COZAAR, MOM (PRN), THEREGRAN, SENNA, FLEET ENEMA (PRN), VIT B COMLPEX WITH VIT C Pertinent Labs 01/10: NA 131, GLUCOSE 363 POC GLUCOSE (LAST 24 HOURS): 257, 250 Nutritional Hx/Data Height 1.75 m Height (Calculated Centimeters) 175.3 Current Weight (lbs) 140.614 kg Weight (Calculated Kilograms) 140.6 Weight (Calculated Grams) 670877.6 Hay Body Weight 145 % Hay Body Weight 214 Body Mass Index (BMI) 45.8 Weight Status Morbidly Obese GI Symptoms GI Symptoms None Last BM NOT NOTED Skin Integrity/Comment: SKIN BREAKDOWN TO BUTTOCKS AREA LUIS: NOT NOTED Current %PO Good (75-100%) Estimated Nutritional Goals BEE in Kcals: Adj wt of IBW Calories/Kcals/Kg 20-25 Kcals Calculated 4654-2757 Protein: Adj wt of IBW Protein g/k.8-1.0 Protein Calculated 68-85 Fluid: ml 4625-9586 ML (25-30 ML/KG) Nutritional Problem 1. Problem Problem ALTERED NUTRITION RELATED LABS Etiology R/T ENDOCRINE DYSFUNCTION Signs/Symptoms: AEB HX DM AND GLUCOSE 363 Malnutrition Related to Morbid Obesity Malnutrition related to morbid obesity Weight 200% of ideal wt Query Text:(Any 1 Criteria met) Malnutrition related to morbid obesity Yes Intervention/Recommendation Comments 1. CONTINUE WITH [facility] 45GM, PUREED DIET ORDERED. 2. CONTNIUE ANTIHYPERGLYCEMIC MEDICATION FOR GLUCOSE CONTROL PER MD ORDER. Expected Outcomes/Goals Expected Outcomes/Goals 1. PO INTAKE TO MEET 75% OF NUTRITIONAL NEEDS. 2. MONITOR PO INTAKE, WT, NUTRITION RELATED LABS AND SKIN INTEGRITY. 3. F/U LOW RISK IN 7 DAYS, 01/18
[2019-02-13] MEDS: INSULIN LISPRO SLIDING SCALE 100 UNITS/ML UNIT SUBQ SCH ×4 (06:59→22:00)
[2019-02-13] MEDS: Levothyroxine 0.075 Mg Tab PO SCH (06:59)
--- NOTE | 2019-02-13 09:11 | Internal Medicine Prog Note ---
Internal Medicine Subjective - Subjective Service Date: 02/13/19 Patient seen and examined:: with staff (SHE FEELS BETTER) Patient is:: awake, verbal, in bed, talking Per staff patient has:: no adverse event Internal Medicine Objective - Results Result Diagrams: 01/10/19 15:10 01/10/19 15:10 Recent Labs: Laboratory Last Values WBC 8.4 Th/cmm (4.8-10.8) 01/10/19 15:10 RBC 5.16 Mil/cmm (3.80-5.20) 01/10/19 15:10 Hgb 14.9 gm/dL (12-16) 01/10/19 15:10 Hct 44.3 % (41.0-60) 01/10/19 15:10 MCV 85.8 fl (81-100) 01/10/19 15:10 MCH 28.9 pg (27.0-31.0) 01/10/19 15:10 MCHC Differential 33.7 pg (28.0-36.0) 01/10/19 15:10 RDW 12.1 % (11.5-20.0) 01/10/19 15:10 Plt Count 291 Th/cmm (150-400) 01/10/19 15:10 MPV 7.3 fl 01/10/19 15:10 Neutrophils % 59.5 % (40.0-80.0) 01/10/19 15:10 Lymphocytes % 31.2 % (20.0-50.0) 01/10/19 15:10 Monocytes % 5.0 % (2.0-10.0) 01/10/19 15:10 Eosinophils % 4.3 % (0.0-5.0) 01/10/19 15:10 Basophils % 0.0 % (0.0-2.0) 01/10/19 15:10 Sodium 131 mEq/L (136-145) L 01/10/19 15:10 Potassium 4.2 mEq/L (3.5-5.1) 01/10/19 15:10 Chloride 96 mEq/L (98-107) L 01/10/19 15:10 Carbon Dioxide 23.9 mEq/L (21.0-31.0) 01/10/19 15:10 Anion Gap 15.3 (7.0-16.0) 01/10/19 15:10 BUN 18 mg/dL (7-25) 01/10/19 15:10 Creatinine 1.0 mg/dL (0.6-1.2) 01/10/19 15:10 Est GFR ( Amer) TNP 01/10/19 15:10 Est GFR (Non-Af Amer) TNP 01/10/19 15:10 BUN/Creatinine Ratio 18.0 01/10/19 15:10 Glucose 363 mg/dL (70-105) H 01/10/19 15:10 POC Glucose 151 MG/DL (70 - 105) H 02/11/19 16:47 Calcium 9.6 mg/dL (8.6-10.3) 01/10/19 15:10 Total Bilirubin 0.5 mg/dL (0.3-1.0) 01/10/19 15:10 AST 13 U/L (13-39) 01/10/19 15:10 ALT 14 U/L (7-52) 01/10/19 15:10 Alkaline Phosphatase 66 U/L (34-104) 01/10/19 15:10 Troponin I 0.04 ng/mL (0.01-0.05) 01/19/19 22:30 Total Protein 7.1 gm/dL (6.0-8.3) 01/10/19 15:10 Albumin 3.7 gm/dL (3.7-5.3) 01/10/19 15:10 Globulin 3.4 gm/dL 01/10/19 15:10 Albumin/Globulin Ratio 1.1 (1.0-1.8) 01/10/19 15:10 Triglycerides 417 mg/dL (<150) H 01/10/19 15:10 Cholesterol 188 mg/dL (<200) 01/10/19 15:10 LDL Cholesterol Direct 109 mg/dL (75-193) 01/10/19 15:10 HDL Cholesterol 27 mg/dL (23-92) 01/10/19 15:10 TSH 1.76 uIU/ml (0.34-5.60) 01/10/19 15:10 Urine Source CLEAN C 01/14/19 17:00 Urine Color YELLOW 01/14/19 17:00 Urine Clarity CLOUDY (CLEAR) H 01/14/19 17:00 Urine pH 6.5 (4.6 - 8.0) 01/14/19 17:00 Ur Specific [place] <= 1.005 (1.005-1.030) 01/14/19 17:00 Urine Protein NEGATIVE mg/dL (NEGATIVE) 01/14/19 17:00 Urine Glucose (UA) 100 mg/dL (NEGATIVE) H 01/14/19 17:00 Urine Ketones NEGATIVE mg/dL (NEGATIVE) 01/14/19 17:00 Urine Blood SMALL (NEGATIVE) H 01/14/19 17:00 Urine Nitrate NEGATIVE (NEGATIVE) 01/14/19 17:00 Urine Bilirubin NEGATIVE (NEGATIVE) 01/14/19 17:00 Urine Urobilinogen 0.2 E.U./dL (0.2 - 1.0) 01/14/19 17:00 Ur Leukocyte Esterase MODERATE (NEGATIVE) H 01/14/19 17:00 Urine RBC 2-5 /hpf (0-5) 01/14/19 17:00 Urine WBC 6-10 /hpf (0-5) H 01/14/19 17:00 Ur Epithelial Cells FEW /lpf (FEW) 01/14/19 17:00 Urine Bacteria MANY /hpf (NONE SEEN) H 01/14/19 17:00 RPR NONREACTIVE (NONREACTIVE) 01/10/19 15:10 - Physical Exam Vitals and I&O: Vital Signs Temp 98 F 02/13/19 06:21 Pulse 84 02/13/19 07:21 Resp 20 02/13/19 07:21 BP 152/97 02/13/19 06:21 Pulse Ox 92 02/13/19 07:21 Intake & Output 02/12/19 02/13/19 02/13/19 18:59 06:59 18:59 Intake Total 1300 120 Balance 1300 120 Intake: Oral 1300 120 Other: # Voids 3 Active Medications: Current Medications Acetaminophen (Tylenol Extra Strength) 500 mg PO Q4H PRN PRN Reason: Pain or Fever >101 Stop: 03/12/19 00:41 Last Admin: 02/09/19 18:22 Dose: 500 mg Al Hydrox/Mg Hydrox/Simethicone (Maalox) 30 ml PO Q4HR PRN PRN Reason: GI DISTRESS Stop: 03/11/19 19:56 Albuterol/Ipratropium (Duoneb Neb) 3 ml HHN Q4H PRN PRN Reason: Wheezing Stop: 03/12/19 00:48 Last Admin: 01/27/19 07:28 Dose: 3 ml Aripiprazole (Abilify) 30 mg PO DAILY [facility]; Protocol Stop: 03/17/19 08:59 Last Admin: 02/12/19 08:56 Dose: 30 mg Aspirin (Ecotrin) 81 mg PO DAILY [facility] Stop: 03/12/19 08:59 Last Admin: 02/12/19 08:56 Dose: 81 mg Atorvastatin Calcium (Lipitor) 20 mg PO HS [facility]; Protocol Stop: 03/12/19 20:59 Last Admin: 02/12/19 21:47 Dose: 20 mg Brimonidine Tartrate (Alphagan 0.1% [facility]) 1 drop EACH EYE TID [facility] Stop: 03/12/19 08:59 Last Admin: 02/12/19 21:47 Dose: 1 drop Carvedilol (Coreg) 12.5 mg PO BID [facility] Stop: 03/21/19 08:59 Last Admin: 02/12/19 17:26 Dose: Not Given Docusate Sodium (Colace) 100 mg PO BID [facility] Stop: 03/12/19 08:59 Last Admin: 02/12/19 17:26 Dose: Not Given Fluticasone Propionate (Flonase) 1 spr NS DAILY [facility] Stop: 03/12/19 08:59 Last Admin: 02/12/19 08:59 Dose: 1 spr Glucagon (Glucagen) 1 mg IM PRN PRN PRN Reason: BS below 70 Stop: 03/11/19 23:24 Haloperidol Decanoate (Haldol Dec) 50 mg IM QMONTH [facility]; Protocol Stop: 03/17/19 15:59 Last Admin: 01/16/19 16:34 Dose: 50 mg Haloperidol Lactate (Haldol Concentrate 10mg/5ml Susp) 5 mg PO BID [facility]; Protocol Stop: 03/18/19 08:59 Last Admin: 02/12/19 17:26 Dose: Not Given Hydralazine HCl (Apresoline) 10 mg PO BID [facility] Stop: 03/12/19 08:59 Last Admin: 02/12/19 17:26 Dose: Not Given Ibuprofen (Motrin) 600 mg PO Q8H PRN PRN Reason: breakthrough pain Stop: 03/12/19 00:35 Last Admin: 01/23/19 12:55 Dose: 600 mg Insulin Glargine (Lantus Insulin) 26 units SUBQ HS [facility] Stop: 03/12/19 20:59 Last Admin: 02/12/19 21:47 Dose: 26 units Insulin Human Lispro (Humalog Insulin Sliding Scale) 0 units SUBQ ACHS [facility]; Protocol Stop: 03/11/19 20:59 Last Admin: 02/13/19 06:59 Dose: Not Given Isosorbide Dinitrate (Isordil) 10 mg PO Q8HR [facility] Stop: 03/12/19 04:59 Last Admin: 02/13/19 05:15 Dose: 10 mg Latanoprost (Xalatan 0.005% [employer] [facility]) 1 drop EACH EYE HS [facility] Stop: 03/12/19 20:59 Last Admin: 02/12/19 21:50 Dose: 1 drop Levothyroxine Sodium (Synthroid) 0.075 mg PO QDAC [facility] Stop: 03/12/19 07:29 Last Admin: 02/13/19 06:59 Dose: 0.075 mg Loratadine (Claritin) 10 mg PO DAILY [facility] Stop: 03/12/19 08:59 Last Admin: 02/12/19 08:56 Dose: 10 mg Losartan Potassium (Cozaar) 50 mg PO DAILY [facility] Stop: 03/12/19 08:59 Last Admin: 02/12/19 08:57 Dose: 50 mg Magnesium Hydroxide (Milk Of Magnesia) 30 ml PO HS PRN PRN Reason: Constipation Multivitamins/Vitamin C (Theragran) 1 tab PO DAILY [facility] Stop: 03/12/19 08:59 Last Admin: 02/12/19 08:57 Dose: 1 tab Naproxen (Naprosyn) 500 mg PO BIDWM [facility] Stop: 03/20/19 17:59 Last Admin: 02/12/19 17:28 Dose: Not Given Nitroglycerin (Nitrostat) 0.4 mg SL Q5MIN PRN PRN Reason: CHEST PAIN Stop: 03/11/19 23:24 Last Admin: 02/12/19 06:52 Dose: 0.4 mg Oxycodone/Acetaminophen (Percocet 5/325mg Oral Tab) 1 tab PO Q8H PRN PRN Reason: severe pain (7-10) Stop: 03/12/19 00:44 Last Admin: 02/07/19 23:11 Dose: 1 tab Senna (Senna) 17.2 mg PO HS [facility] Stop: 03/12/19 20:59 Last Admin: 02/12/19 21:50 Dose: Not Given Sodium Phosphate (Fleet Enema) 135 ml RC DAILY PRN PRN Reason: Constipation Stop: 03/11/19 23:24 Vitamin B Complex/Vit C/Folic Acid (Vitamin B Complex W/Vitamin C) 1 tab PO DAILY [facility] Stop: 03/12/19 08:59 Last Admin: 02/12/19 08:56 Dose: 1 tab Zolpidem Tartrate (Ambien) 5 mg PO HS PRN PRN Reason: Insomnia Stop: 03/11/19 19:56 Last Admin: 02/10/19 21:53 Dose: 5 mg General: alert HEENT: NC/AT, PERRLA, EOMI, anicteric sclerae, throat clear Neck: Supple, No JVD, No thyromegaly, +2 carotid pulse wo bruit, No LAD Lungs: CTAB Cardiovascular: RRR, Normal S1, Normal S2, without murmur Abdomen: soft, non-tender, non-distended Extremities: clear Neurological: no change Internal Medicine Assmt/Plan - Assessment Assessment: 1.DM. 2.HTN. 3.HYPOTHYROIDISM. 5.PSYCHOSIS - Plan Plan: CONTINUE ON CURRENT MEDICATION AND DIET. Nutritional Asmnt/Malnutr-PDOC - Dietary Evaluation Malnutrition Findings (Please click <Entered> for more info): Nutritional Asmnt/Malnutrition Start: 01/11/19 12: 41 Text: Status: Complete Freq: Protocol: Document 01/11/19 12:41 AXEL (Rec: 01/11/19 12:45 [email or web address] [email or web address]) Nutritional Asmnt/Malnutrition Patient General Information Nutritional Screening Consult Diagnosis PSYCHOSIS Pertinent Medical Hx/Surgical Hx HTN, DM, HYPOTHYROIDISM, PSYCHOSIS, DJD Subjective Information IA CONSULT: DM PT IS A 78 YEAR OLD FEMALE FROM [facility] ADMITTED ON 01/10 D/T AGGRESSIVE BEHAVIOR. PT WAS HERE RECENTLY, DISCHARGED ON . PER MEAL/NUTRITION ACTIVITY RECORD, PT TYPICALLY ATE 100% MEALS. HT: 59 WT: 310 LB (141 KG) ABW: 186 LB (84.66 KG) BMI: 45.78 (OBESE III) GI: WNL, NON-TENDER, LARGE, ROUND BM: NOT NOTED I/O: 240/NOT NOTED SKIN: SKIN BREAKDOWN TO BUTTOCKS AREA LUIS: NOT NOTED DIET ORDER: CCHO 45GM, PUREED ESTIMATED ENERGY NEEDS: (OBESE III, ABW) 1431-0152 KCALS (20-25 KCALS/ KG) 68-85 G PRO (0.8-1.0 G/KG) 5838-8316 ML (25-30 ML/KG) PT PO INTAKE: 100% SNACK PROVIDED. Current Diet Order/ Nutrition [facility], PUREED Pertinent Medications MAALOX (PRN), ALBUTEROL (PRN), LIPITOR, COREG, COLACE, GLUCAGON (PRN), LANTUS, SYNTHROID, INS-SS, COZAAR, MOM (PRN), THEREGRAN, SENNA, FLEET ENEMA (PRN), VIT B COMLPEX WITH VIT C Pertinent Labs 01/10: NA 131, GLUCOSE 363 POC GLUCOSE (LAST 24 HOURS): 257, 250 Nutritional Hx/Data Height 1.75 m Height (Calculated Centimeters) 175.3 Current Weight (lbs) 140.614 kg Weight (Calculated Kilograms) 140.6 Weight (Calculated Grams) 553147.6 [place] Body Weight 145 % [place] Body Weight 214 Body Mass Index (BMI) 45.8 Weight Status Morbidly Obese GI Symptoms GI Symptoms None Last BM NOT NOTED Skin Integrity/Comment: SKIN BREAKDOWN TO BUTTOCKS AREA LUIS: NOT NOTED Current %PO Good (75-100%) Estimated Nutritional Goals BEE in Kcals: Adj wt of IBW Calories/Kcals/Kg 20-25 Kcals Calculated 7336-4136 Protein: Adj wt of IBW Protein g/k.8-1.0 Protein Calculated 68-85 Fluid: ml 5852-9589 ML (25-30 ML/KG) Nutritional Problem 1. Problem Problem ALTERED NUTRITION RELATED LABS Etiology R/T ENDOCRINE DYSFUNCTION Signs/Symptoms: AEB HX DM AND GLUCOSE 363 Malnutrition Related to Morbid Obesity Malnutrition related to morbid obesity Weight 200% of ideal wt Query Text:(Any 1 Criteria met) Malnutrition related to morbid obesity Yes Intervention/Recommendation Comments 1. CONTINUE WITH [facility] 45GM, PUREED DIET ORDERED. 2. CONTNIUE ANTIHYPERGLYCEMIC MEDICATION FOR GLUCOSE CONTROL PER MD ORDER. Expected Outcomes/Goals Expected Outcomes/Goals 1. PO INTAKE TO MEET 75% OF NUTRITIONAL NEEDS. 2. MONITOR PO INTAKE, WT, NUTRITION RELATED LABS AND SKIN INTEGRITY. 3. F/U LOW RISK IN 7 DAYS, 01/18
[2019-02-13] MEDS: Vitamin B Complex w/Vitamin C Tab PO SCH (09:16)
[2019-02-13] MEDS: Multivitamin Tab PO SCH (09:16)
[2019-02-13] MEDS: Fluticasone Propionate Nasal 1 SPR SPR NS SCH (09:18)
[2019-02-13] MEDS: Haldol Oral Sol.(concentrate) 10 mg/5 mL Udc PO SCH ×2 (09:19→17:45)
[2019-02-13] MEDS: Atorvastatin Calcium 10 MG TAB PO SCH (22:00)
[2019-02-13] MEDS: Insulin Glargine 100 units/ml 10ml Vial SUBQ SCH (22:05)
[2019-02-13] MEDS: APAP/Oxycodone 5/325mg Tab PO PRN (22:55)
--- NOTE | 2019-02-13 23:50 | Progress Notes ---
DATE: 02/13/2019 SUBJECTIVE: The patient is currently in the hospital, depressed, anxious, withdrawn. On [id number], the patient is angry, escalates with me, starts yelling. She is still upset about not being placed. I explained to her that her behaviors over the past are likely the reason that she has been difficult to place, and she gets very upset, mad, escalates. Resting generally comfortably. No events. Medications were noted. Fair sleep, fair appetite. We will continue to monitor, still yelling at staff, trying to hit staff, screaming at staff at times. JOB# [id number]
[2019-02-14] MEDS: INSULIN LISPRO SLIDING SCALE 100 UNITS/ML UNIT SUBQ SCH ×4 (06:42→20:52)
[2019-02-14] MEDS: Levothyroxine 0.075 Mg Tab PO SCH (06:50)
--- NOTE | 2019-02-14 07:33 | Progress Notes ---
DATE: 02/14/2019 SUBJECTIVE: Chart reviewed and the patient interviewed. Also discussed the patient's condition with the staff and reviewed records and labs. The patient is still anxious and is still in a depressed mood. The patient also is withdrawn and interacting minimally with others. The patient was less agitated and less irritable. She also is still at times suspicious and paranoid, but in general, she is interacting more with peers and with others. Otherwise, the patient is compliant with taking her medications with no side effects of medications. ASSESSMENT: The patient is calm and depressed. TREATMENT PLAN: We will continue to monitor her behavior and her condition. Also, director case is still working on discharge plans and placement issue. I did not hear anything in regard to placement yet. JOB# [id number]
[2019-02-14] MEDS: Haldol Oral Sol.(concentrate) 10 mg/5 mL Udc PO SCH ×2 (09:24→16:37)
[2019-02-14] MEDS: Multivitamin Tab PO SCH (09:25)
[2019-02-14] MEDS: Vitamin B Complex w/Vitamin C Tab PO SCH (09:25)
[2019-02-14] MEDS: Fluticasone Propionate Nasal 1 SPR SPR NS SCH (09:28)
--- NOTE | 2019-02-14 17:24 | Internal Medicine Prog Note ---
Internal Medicine Subjective - Subjective Service Date: 02/14/19 Patient seen and examined:: with staff (SHE FEELS WELL) Patient is:: awake, verbal, in bed, talking Per staff patient has:: no adverse event Internal Medicine Objective - Results Result Diagrams: 01/10/19 15:10 01/10/19 15:10 Recent Labs: Laboratory Last Values WBC 8.4 Th/cmm (4.8-10.8) 01/10/19 15:10 RBC 5.16 Mil/cmm (3.80-5.20) 01/10/19 15:10 Hgb 14.9 gm/dL (12-16) 01/10/19 15:10 Hct 44.3 % (41.0-60) 01/10/19 15:10 MCV 85.8 fl (81-100) 01/10/19 15:10 MCH 28.9 pg (27.0-31.0) 01/10/19 15:10 MCHC Differential 33.7 pg (28.0-36.0) 01/10/19 15:10 RDW 12.1 % (11.5-20.0) 01/10/19 15:10 Plt Count 291 Th/cmm (150-400) 01/10/19 15:10 MPV 7.3 fl 01/10/19 15:10 Neutrophils % 59.5 % (40.0-80.0) 01/10/19 15:10 Lymphocytes % 31.2 % (20.0-50.0) 01/10/19 15:10 Monocytes % 5.0 % (2.0-10.0) 01/10/19 15:10 Eosinophils % 4.3 % (0.0-5.0) 01/10/19 15:10 Basophils % 0.0 % (0.0-2.0) 01/10/19 15:10 Sodium 131 mEq/L (136-145) L 01/10/19 15:10 Potassium 4.2 mEq/L (3.5-5.1) 01/10/19 15:10 Chloride 96 mEq/L (98-107) L 01/10/19 15:10 Carbon Dioxide 23.9 mEq/L (21.0-31.0) 01/10/19 15:10 Anion Gap 15.3 (7.0-16.0) 01/10/19 15:10 BUN 18 mg/dL (7-25) 01/10/19 15:10 Creatinine 1.0 mg/dL (0.6-1.2) 01/10/19 15:10 Est GFR ( Amer) TNP 01/10/19 15:10 Est GFR (Non-Af Amer) TNP 01/10/19 15:10 BUN/Creatinine Ratio 18.0 01/10/19 15:10 Glucose 363 mg/dL (70-105) H 01/10/19 15:10 POC Glucose 177 MG/DL (70 - 105) H 02/14/19 16:17 Calcium 9.6 mg/dL (8.6-10.3) 01/10/19 15:10 Total Bilirubin 0.5 mg/dL (0.3-1.0) 01/10/19 15:10 AST 13 U/L (13-39) 01/10/19 15:10 ALT 14 U/L (7-52) 01/10/19 15:10 Alkaline Phosphatase 66 U/L (34-104) 01/10/19 15:10 Troponin I 0.04 ng/mL (0.01-0.05) 01/19/19 22:30 Total Protein 7.1 gm/dL (6.0-8.3) 01/10/19 15:10 Albumin 3.7 gm/dL (3.7-5.3) 01/10/19 15:10 Globulin 3.4 gm/dL 01/10/19 15:10 Albumin/Globulin Ratio 1.1 (1.0-1.8) 01/10/19 15:10 Triglycerides 417 mg/dL (<150) H 01/10/19 15:10 Cholesterol 188 mg/dL (<200) 01/10/19 15:10 LDL Cholesterol Direct 109 mg/dL (75-193) 01/10/19 15:10 HDL Cholesterol 27 mg/dL (23-92) 01/10/19 15:10 TSH 1.76 uIU/ml (0.34-5.60) 01/10/19 15:10 Urine Source CLEAN C 01/14/19 17:00 Urine Color YELLOW 01/14/19 17:00 Urine Clarity CLOUDY (CLEAR) H 01/14/19 17:00 Urine pH 6.5 (4.6 - 8.0) 01/14/19 17:00 Ur Specific [place] <= 1.005 (1.005-1.030) 01/14/19 17:00 Urine Protein NEGATIVE mg/dL (NEGATIVE) 01/14/19 17:00 Urine Glucose (UA) 100 mg/dL (NEGATIVE) H 01/14/19 17:00 Urine Ketones NEGATIVE mg/dL (NEGATIVE) 01/14/19 17:00 Urine Blood SMALL (NEGATIVE) H 01/14/19 17:00 Urine Nitrate NEGATIVE (NEGATIVE) 01/14/19 17:00 Urine Bilirubin NEGATIVE (NEGATIVE) 01/14/19 17:00 Urine Urobilinogen 0.2 E.U./dL (0.2 - 1.0) 01/14/19 17:00 Ur Leukocyte Esterase MODERATE (NEGATIVE) H 01/14/19 17:00 Urine RBC 2-5 /hpf (0-5) 01/14/19 17:00 Urine WBC 6-10 /hpf (0-5) H 01/14/19 17:00 Ur Epithelial Cells FEW /lpf (FEW) 01/14/19 17:00 Urine Bacteria MANY /hpf (NONE SEEN) H 01/14/19 17:00 RPR NONREACTIVE (NONREACTIVE) 01/10/19 15:10 - Physical Exam Vitals and I&O: Vital Signs Temp 98.8 F 02/14/19 14:00 Pulse 82 02/14/19 16:37 Resp 18 02/14/19 14:00 BP 151/67 02/14/19 16:37 Pulse Ox 96 02/14/19 14:00 Intake & Output 02/13/19 02/14/19 02/14/19 18:59 06:59 18:59 Intake Total 1350 120 Balance 1350 120 Intake: Oral 1350 120 Other: # Voids 3 # Bowel Movements 1 Active Medications: Current Medications Acetaminophen (Tylenol Extra Strength) 500 mg PO Q4H PRN PRN Reason: Pain or Fever >101 Stop: 03/12/19 00:41 Last Admin: 02/09/19 18:22 Dose: 500 mg Al Hydrox/Mg Hydrox/Simethicone (Maalox) 30 ml PO Q4HR PRN PRN Reason: GI DISTRESS Stop: 03/11/19 19:56 Albuterol/Ipratropium (Duoneb Neb) 3 ml HHN Q4H PRN PRN Reason: Wheezing Stop: 03/12/19 00:48 Last Admin: 01/27/19 07:28 Dose: 3 ml Aripiprazole (Abilify) 30 mg PO DAILY [facility]; Protocol Stop: 03/17/19 08:59 Last Admin: 02/14/19 09:24 Dose: 30 mg Aspirin (Ecotrin) 81 mg PO DAILY [facility] Stop: 03/12/19 08:59 Last Admin: 02/14/19 09:25 Dose: 81 mg Atorvastatin Calcium (Lipitor) 20 mg PO HS [facility]; Protocol Stop: 03/12/19 20:59 Last Admin: 02/13/19 22:00 Dose: 20 mg Brimonidine Tartrate (Alphagan 0.1% Ophth Soln) 1 drop EACH EYE TID [facility] Stop: 03/12/19 08:59 Last Admin: 02/14/19 14:02 Dose: 1 drop Carvedilol (Coreg) 12.5 mg PO BID [facility] Stop: 03/21/19 08:59 Last Admin: 02/14/19 16:37 Dose: 12.5 mg Docusate Sodium (Colace) 100 mg PO BID [facility] Stop: 03/12/19 08:59 Last Admin: 02/14/19 16:35 Dose: 100 mg Fluticasone Propionate (Flonase) 1 spr NS DAILY [facility] Stop: 03/12/19 08:59 Last Admin: 02/14/19 09:28 Dose: 1 spr Glucagon (Glucagen) 1 mg IM PRN PRN PRN Reason: BS below 70 Stop: 03/11/19 23:24 Haloperidol Decanoate (Haldol Dec) 50 mg IM QMONTH [facility]; Protocol Stop: 03/17/19 15:59 Last Admin: 01/16/19 16:34 Dose: 50 mg Haloperidol Lactate (Haldol Concentrate 10mg/5ml Susp) 5 mg PO BID [facility]; Protocol Stop: 03/18/19 08:59 Last Admin: 02/14/19 16:37 Dose: 5 mg Hydralazine HCl (Apresoline) 10 mg PO BID [facility] Stop: 03/12/19 08:59 Last Admin: 02/14/19 16:36 Dose: 10 mg Ibuprofen (Motrin) 600 mg PO Q8H PRN PRN Reason: breakthrough pain Stop: 03/12/19 00:35 Last Admin: 01/23/19 12:55 Dose: 600 mg Insulin Glargine (Lantus Insulin) 26 units SUBQ HS [facility] Stop: 03/12/19 20:59 Last Admin: 02/13/19 22:05 Dose: 26 units Insulin Human Lispro (Humalog Insulin Sliding Scale) 0 units SUBQ [facility]; Protocol Stop: 03/11/19 20:59 Last Admin: 02/14/19 16:27 Dose: Not Given Isosorbide Dinitrate (Isordil) 10 mg PO Q8HR [facility] Stop: 03/12/19 04:59 Last Admin: 02/14/19 14:00 Dose: 10 mg Latanoprost (Xalatan 0.005% Oph Soln) 1 drop EACH EYE HS [facility] Stop: 03/12/19 20:59 Last Admin: 02/13/19 22:53 Dose: 1 drop Levothyroxine Sodium (Synthroid) 0.075 mg PO QDAC [facility] Stop: 03/12/19 07:29 Last Admin: 02/14/19 06:50 Dose: 0.075 mg Loratadine (Claritin) 10 mg PO DAILY [facility] Stop: 03/12/19 08:59 Last Admin: 02/14/19 09:25 Dose: 10 mg Losartan Potassium (Cozaar) 50 mg PO DAILY [facility] Stop: 03/12/19 08:59 Last Admin: 02/14/19 09:26 Dose: 50 mg Magnesium Hydroxide (Milk Of Magnesia) 30 ml PO HS PRN PRN Reason: Constipation Multivitamins/Vitamin C (Theragran) 1 tab PO DAILY [facility] Stop: 03/12/19 08:59 Last Admin: 02/14/19 09:25 Dose: 1 tab Naproxen (Naprosyn) 500 mg PO BIDWM CAL Stop: 03/20/19 17:59 Last Admin: 02/14/19 17:14 Dose: 500 mg Nitroglycerin (Nitrostat) 0.4 mg SL Q5MIN PRN PRN Reason: CHEST PAIN Stop: 03/11/19 23:24 Last Admin: 02/12/19 06:52 Dose: 0.4 mg Oxycodone/Acetaminophen (Percocet 5/325mg Oral Tab) 1 tab PO Q8H PRN PRN Reason: severe pain (7-10) Stop: 03/12/19 00:44 Last Admin: 02/13/19 22:55 Dose: 1 tab Senna (Senna) 17.2 mg PO HS [facility] Stop: 03/12/19 20:59 Last Admin: 02/13/19 22:00 Dose: Not Given Sodium Phosphate (Fleet Enema) 135 ml RC DAILY PRN PRN Reason: Constipation Stop: 03/11/19 23:24 Vitamin B Complex/Vit C/Folic Acid (Vitamin B Complex W/Vitamin C) 1 tab PO DAILY [facility] Stop: 03/12/19 08:59 Last Admin: 02/14/19 09:25 Dose: 1 tab Zolpidem Tartrate (Ambien) 5 mg PO HS PRN PRN Reason: Insomnia Stop: 03/11/19 19:56 Last Admin: 02/10/19 21:53 Dose: 5 mg General: alert HEENT: NC/AT, PERRLA, EOMI, anicteric sclerae, throat clear Neck: Supple, No JVD, No thyromegaly, +2 carotid pulse wo bruit, No LAD Lungs: CTAB Cardiovascular: RRR, Normal S1, Normal S2, without murmur Abdomen: soft, non-tender, non-distended Extremities: clear Neurological: no change Internal Medicine Assmt/Plan - Assessment Assessment: 1.DM. 2.HTN. 3.HYPOTHYROIDISM. 5.PSYCHOSIS - Plan Plan: CONTINUE ON CURRENT MEDICATION AND DIET. Nutritional Asmnt/Malnutr-PDOC - Dietary Evaluation Malnutrition Findings (Please click <Entered> for more info): Nutritional Asmnt/Malnutrition Start: 01/11/19 12: 41 Text: Status: Complete Freq: Protocol: Document 01/11/19 12:41 AXEL (Rec: 01/11/19 12:45 [email or web address] [email or web address]) Nutritional Asmnt/Malnutrition Patient General Information Nutritional Screening Consult Diagnosis PSYCHOSIS Pertinent Medical Hx/Surgical Hx HTN, DM, HYPOTHYROIDISM, PSYCHOSIS, DJD Subjective Information IA CONSULT: DM PT IS A 78 YEAR OLD FEMALE [facility] ADM[facility] ON 01/10 D/T AGGRESSIVE BEHAVIOR. PT WAS HERE RECENTLY, DISCHARGED ON . PER MEAL/NUTRITION ACTIVITY RECORD, PT TYPICALLY ATE 100% MEALS. HT: 59 WT: 310 LB (141 KG) ABW: 186 LB (84.66 KG) BMI: 45.78 (OBESE III) GI: WNL, NON-TENDER, LARGE, ROUND BM: NOT NOTED I/O: 240/NOT NOTED SKIN: SKIN BREAKDOWN TO BUTTOCKS AREA LUIS: NOT NOTED DIET ORDER: [facility] 45GM, PUREED ESTIMATED ENERGY NEEDS: (OBESE III, ABW) 3642-8707 KCALS (20-25 KCALS/ KG) 68-85 G PRO (0.8-1.0 G/KG) 4353-1933 ML (25-30 ML/KG) PT PO INTAKE: 100% SNACK PROVIDED. Current Diet Order/ Nutrition Support CCHO 45GM, PUREED Pertinent Medications MAALOX (PRN), ALBUTEROL (PRN), LIPITOR, COREG, COLACE, GLUCAGON (PRN), LANTUS, SYNTHROID, INS-SS, COZAAR, MOM (PRN), THEREGRAN, SENNA, FLEET ENEMA (PRN), VIT B COMLPEX WITH VIT C Pertinent Labs 01/10: NA 131, GLUCOSE 363 POC GLUCOSE (LAST 24 HOURS): 257, 250 Nutritional Hx/Data Height 1.75 m Height (Calculated Centimeters) 175.3 Current Weight (lbs) 140.614 kg Weight (Calculated Kilograms) 140.6 Weight (Calculated Grams) 918156.[address] [place] Body Weight 145 % [place] Body Weight 214 Body Mass Index (BMI) 45.8 Weight Status Morbidly Obese GI Symptoms GI Symptoms None Last BM NOT NOTED Skin Integrity/Comment: SKIN BREAKDOWN TO BUTTOCKS AREA LUIS: NOT NOTED Current %PO Good (75-100%) Estimated Nutritional Goals BEE in Kcals: Adj wt of IBW Calories/Kcals/Kg 20-25 Kcals Calculated 3725-0867 Protein: Adj wt of IBW Protein g/k.8-1.0 Protein Calculated 68-85 Fluid: ml 5437-2290 ML (25-30 ML/KG) Nutritional Problem 1. Problem Problem ALTERED NUTRITION RELATED LABS Etiology R/T ENDOCRINE DYSFUNCTION Signs/Symptoms: AEB HX DM AND GLUCOSE 363 Malnutrition Related to Morbid Obesity Malnutrition related to morbid obesity Weight 200% of ideal wt Query Text:(Any 1 Criteria met) Malnutrition related to morbid obesity Yes Intervention/Recommendation Comments [facility]. [facility] DIET ORDERED. 2. CONTNIUE ANTIHYPERGLYCEMIC MEDICATION FOR GLUCOSE CONTROL PER MD ORDER. Expected Outcomes/Goals Expected Outcomes/Goals 1. PO INTAKE TO MEET 75% OF NUTRITIONAL NEEDS. 2. MONITOR PO INTAKE, WT, NUTRITION RELATED LABS AND SKIN INTEGRITY. 3. F/U LOW RISK IN 7 DAYS, 01/18
[2019-02-14] MEDS: Atorvastatin Calcium 10 MG TAB PO SCH (20:27)
[2019-02-14] MEDS: Insulin Glargine 100 units/ml 10ml Vial SUBQ SCH (20:54)
[2019-02-15] MEDS: INSULIN LISPRO SLIDING SCALE 100 UNITS/ML UNIT SUBQ SCH ×5 (07:08→21:48)
[2019-02-15] MEDS: Levothyroxine 0.075 Mg Tab PO SCH (07:08)
--- NOTE | 2019-02-15 07:37 | Progress Notes ---
DATE: 02/15/2019 SUBJECTIVE: Chart reviewed and the patient interviewed. Also discussed the patient's condition with the staff and reviewed records and labs. The patient is still anxious and she is still in a depressed mood. The patient also continues to ask about discharge plans and discharge dates, which is not clear yet. She also is still compliant with taking her medications with no side effects of medications. The patient seems to be more depressed with her long hospital stay. At the same time, she continues to comply with medications and waiting for discharge plans and placement issue. [facility]# [id number]
[2019-02-15] MEDS: Multivitamin Tab PO SCH (09:09)
[2019-02-15] MEDS: Haldol Oral Sol.(concentrate) 10 mg/5 mL Udc PO SCH ×2 (09:10→17:07)
[2019-02-15] MEDS: Vitamin B Complex w/Vitamin C Tab PO SCH (09:10)
[2019-02-15] MEDS: Fluticasone Propionate Nasal 1 SPR SPR NS SCH (09:11)
--- NOTE | 2019-02-15 18:44 | Internal Medicine Prog Note ---
Internal Medicine Subjective - Subjective Service Date: 02/15/19 Patient seen and examined:: with staff (SHE FEELS WELL) Patient is:: awake, verbal, in bed, talking Per staff patient has:: no adverse event Internal Medicine Objective - Results Result Diagrams: 01/10/19 15:10 01/10/19 15:10 Recent Labs: Laboratory Last Values WBC 8.4 Th/cmm (4.8-10.8) 01/10/19 15:10 RBC 5.16 Mil/cmm (3.80-5.20) 01/10/19 15:10 Hgb 14.9 gm/dL (12-16) 01/10/19 15:10 Hct 44.3 % (41.0-60) 01/10/19 15:10 MCV 85.8 fl (81-100) 01/10/19 15:10 MCH 28.9 pg (27.0-31.0) 01/10/19 15:10 MCHC Differential 33.7 pg (28.0-36.0) 01/10/19 15:10 RDW 12.1 % (11.5-20.0) 01/10/19 15:10 Plt Count 291 Th/cmm (150-400) 01/10/19 15:10 MPV 7.3 fl 01/10/19 15:10 Neutrophils % 59.5 % (40.0-80.0) 01/10/19 15:10 Lymphocytes % 31.2 % (20.0-50.0) 01/10/19 15:10 Monocytes % 5.0 % (2.0-10.0) 01/10/19 15:10 Eosinophils % 4.3 % (0.0-5.0) 01/10/19 15:10 Basophils % 0.0 % (0.0-2.0) 01/10/19 15:10 Sodium 131 mEq/L (136-145) L 01/10/19 15:10 Potassium 4.2 mEq/L (3.5-5.1) 01/10/19 15:10 Chloride 96 mEq/L (98-107) L 01/10/19 15:10 Carbon Dioxide 23.9 mEq/L (21.0-31.0) 01/10/19 15:10 Anion Gap 15.3 (7.0-16.0) 01/10/19 15:10 BUN 18 mg/dL (7-25) 01/10/19 15:10 Creatinine 1.0 mg/dL (0.6-1.2) 01/10/19 15:10 Est GFR ( Amer) TNP 01/10/19 15:10 Est GFR (Non-Af Amer) TNP 01/10/19 15:10 BUN/Creatinine Ratio 18.0 01/10/19 15:10 Glucose 363 mg/dL (70-105) H 01/10/19 15:10 POC Glucose 226 MG/DL (70 - 105) H 02/15/19 11:49 Calcium 9.6 mg/dL (8.6-10.3) 01/10/19 15:10 Total Bilirubin 0.5 mg/dL (0.3-1.0) 01/10/19 15:10 AST 13 U/L (13-39) 01/10/19 15:10 ALT 14 U/L (7-52) 01/10/19 15:10 Alkaline Phosphatase 66 U/L (34-104) 01/10/19 15:10 Troponin I 0.04 ng/mL (0.01-0.05) 01/19/19 22:30 Total Protein 7.1 gm/dL (6.0-8.3) 01/10/19 15:10 Albumin 3.7 gm/dL (3.7-5.3) 01/10/19 15:10 Globulin 3.4 gm/dL 01/10/19 15:10 Albumin/Globulin Ratio 1.1 (1.0-1.8) 01/10/19 15:10 Triglycerides 417 mg/dL (<150) H 01/10/19 15:10 Cholesterol 188 mg/dL (<200) 01/10/19 15:10 LDL Cholesterol Direct 109 mg/dL (75-193) 01/10/19 15:10 HDL Cholesterol 27 mg/dL (23-92) 01/10/19 15:10 TSH 1.76 uIU/ml (0.34-5.60) 01/10/19 15:10 Urine Source CLEAN C 01/14/19 17:00 Urine Color YELLOW 01/14/19 17:00 Urine Clarity CLOUDY (CLEAR) H 01/14/19 17:00 Urine pH 6.5 (4.6 - 8.0) 01/14/19 17:00 Ur Specific [place] <= 1.005 (1.005-1.030) 01/14/19 17:00 Urine Protein NEGATIVE mg/dL (NEGATIVE) 01/14/19 17:00 Urine Glucose (UA) 100 mg/dL (NEGATIVE) H 01/14/19 17:00 Urine Ketones NEGATIVE mg/dL (NEGATIVE) 01/14/19 17:00 Urine Blood SMALL (NEGATIVE) H 01/14/19 17:00 Urine Nitrate NEGATIVE (NEGATIVE) 01/14/19 17:00 Urine Bilirubin NEGATIVE (NEGATIVE) 01/14/19 17:00 Urine Urobilinogen 0.2 E.U./dL (0.2 - 1.0) 01/14/19 17:00 Ur Leukocyte Esterase MODERATE (NEGATIVE) H 01/14/19 17:00 Urine RBC 2-5 /hpf (0-5) 01/14/19 17:00 Urine WBC 6-10 /hpf (0-5) H 01/14/19 17:00 Ur Epithelial Cells FEW /lpf (FEW) 01/14/19 17:00 Urine Bacteria MANY /hpf (NONE SEEN) H 01/14/19 17:00 RPR NONREACTIVE (NONREACTIVE) 01/10/19 15:10 - Physical Exam Vitals and I&O: Vital Signs Temp 97.8 F 02/15/19 17:00 Pulse 81 02/15/19 17:09 Resp 18 02/15/19 17:00 BP 158/92 02/15/19 17:09 Pulse Ox 95 02/15/19 17:00 Intake & Output 02/14/19 02/15/19 02/15/19 18:59 06:59 18:59 Intake Total 1000 1200 Balance 1000 1200 Intake: Oral 1000 1200 Other: # Voids 3 4 # Bowel Movements 1 1 Active Medications: Current Medications Acetaminophen (Tylenol Extra Strength) 500 mg PO Q4H PRN PRN Reason: Pain or Fever >101 Stop: 03/12/19 00:41 Last Admin: 02/09/19 18:22 Dose: 500 mg Al Hydrox/Mg Hydrox/Simethicone (Maalox) 30 ml PO Q4HR PRN PRN Reason: GI DISTRESS Stop: 03/11/19 19:56 Albuterol/Ipratropium (Duoneb Neb) 3 ml HHN Q4H PRN PRN Reason: Wheezing Stop: 03/12/19 00:48 Last Admin: 01/27/19 07:28 Dose: 3 ml Aripiprazole (Abilify) 30 mg PO DAILY [facility]; Protocol Stop: 03/17/19 08:59 Last Admin: 02/15/19 09:07 Dose: 30 mg Aspirin (Ecotrin) 81 mg PO DAILY [facility] Stop: 03/12/19 08:59 Last Admin: 02/15/19 09:08 Dose: 81 mg Atorvastatin Calcium (Lipitor) 20 mg PO HS [facility]; Protocol Stop: 03/12/19 20:59 Last Admin: 02/14/19 20:27 Dose: 20 mg Brimonidine Tartrate (Alphagan 0.1% Ophth Soln) 1 drop EACH EYE TID [facility] Stop: 03/12/19 08:59 Last Admin: 02/15/19 13:47 Dose: 1 drop Carvedilol (Coreg) 12.5 mg PO BID [facility] Stop: 03/21/19 08:59 Last Admin: 02/15/19 17:08 Dose: 12.5 mg Docusate Sodium (Colace) 100 mg PO BID [facility] Stop: 03/12/19 08:59 Last Admin: 02/15/19 17:07 Dose: 100 mg Duloxetine HCl (Cymbalta) 60 mg PO DAILY [facility]; Protocol Stop: 04/16/19 13:59 Last Admin: 02/15/19 15:00 Dose: Not Given Fluticasone Propionate (Flonase) 1 spr NS DAILY [facility] Stop: 03/12/19 08:59 Last Admin: 02/15/19 09:11 Dose: 1 spr Glucagon (Glucagen) 1 mg IM PRN PRN PRN Reason: BS below 70 Stop: 03/11/19 23:24 Haloperidol Decanoate (Haldol Dec) 50 mg IM QMONTH [facility]; Protocol Stop: 03/17/19 15:59 Last Admin: 02/15/19 17:23 Dose: Not Given Haloperidol Lactate (Haldol Concentrate 10mg/5ml Susp) 5 mg PO BID [facility]; Protocol Stop: 03/18/19 08:59 Last Admin: 02/15/19 17:07 Dose: 5 mg Hydralazine HCl (Apresoline) 10 mg PO BID [facility] Stop: 03/12/19 08:59 Last Admin: 02/15/19 17:09 Dose: 10 mg Ibuprofen (Motrin) 600 mg PO Q8H PRN PRN Reason: breakthrough pain Stop: 03/12/19 00:35 Last Admin: 01/23/19 12:55 Dose: 600 mg Insulin Glargine (Lantus Insulin) 26 units SUBQ HS [facility] Stop: 03/12/19 20:59 Last Admin: 02/14/19 20:54 Dose: 26 units Insulin Human Lispro (Humalog Insulin Sliding Scale) 0 units SUBQ [facility]; Protocol Stop: 03/11/19 20:59 Last Admin: 02/15/19 16:56 Dose: Not Given Isosorbide Dinitrate (Isordil) 10 mg PO Q8HR [facility] Stop: 03/12/19 04:59 Last Admin: 02/15/19 13:47 Dose: 10 mg Latanoprost (Xalatan 0.005% Oph Sol) 1 drop EACH EYE HS [facility] Stop: 03/12/19 20:59 Last Admin: 02/14/19 20:28 Dose: 1 drop Levothyroxine Sodium (Synthroid) 0.075 mg PO QDAC [facility] Stop: 03/12/19 07:29 Last Admin: 02/15/19 07:08 Dose: 0.075 mg Loratadine (Claritin) 10 mg PO DAILY [facility] Stop: 03/12/19 08:59 Last Admin: 02/15/19 09:09 Dose: 10 mg Losartan Potassium (Cozaar) 50 mg PO DAILY [facility] Stop: 03/12/19 08:59 Last Admin: 02/15/19 09:08 Dose: 50 mg Magnesium Hydroxide (Milk Of Magnesia) 30 ml PO HS PRN PRN Reason: Constipation Multivitamins/Vitamin C (Theragran) 1 tab PO DAILY [facility] Stop: 03/12/19 08:59 Last Admin: 02/15/19 09:09 Dose: 1 tab Naproxen (Naprosyn) 500 mg PO BIDWM [facility] Stop: 03/20/19 17:59 Last Admin: 02/15/19 17:09 Dose: 500 mg Nitroglycerin (Nitrostat) 0.4 mg SL Q5MIN PRN PRN Reason: CHEST PAIN Stop: 03/11/19 23:24 Last Admin: 02/12/19 06:52 Dose: 0.4 mg Oxycodone/Acetaminophen (Percocet 5/325mg Oral Tab) 1 tab PO Q4H PRN PRN Reason: severe pain (7-10) Stop: 04/16/19 11:01 Senna (Senna) 17.2 mg PO HS [facility] Stop: 03/12/19 20:59 Last Admin: 02/14/19 20:25 Dose: 17.2 mg Sodium Phosphate (Fleet Enema) 135 ml RC DAILY PRN PRN Reason: Constipation Stop: 03/11/19 23:24 Vitamin B Complex/Vit C/Folic Acid (Vitamin B Complex W/Vitamin C) 1 tab PO DAILY [facility] Stop: 03/12/19 08:59 Last Admin: 02/15/19 09:10 Dose: 1 tab Zolpidem Tartrate (Ambien) 5 mg PO HS PRN PRN Reason: Insomnia Stop: 04/16/19 10:58 General: alert HEENT: NC/AT, PERRLA, EOMI, anicteric sclerae, throat clear Neck: Supple, No JVD, No thyromegaly, +2 carotid pulse wo bruit, No LAD Lungs: CTAB Cardiovascular: RRR, Normal S1, Normal S2, without murmur Abdomen: soft, non-tender, non-distended Extremities: clear Neurological: no change Internal Medicine Assmt/Plan - Assessment Assessment: 1.DM. 2.HTN. 3.HYPOTHYROIDISM. 5.PSYCHOSIS - Plan Plan: CONTINUE ON CURRENT MEDICATION AND DIET. Nutritional Asmnt/Malnutr-PDOC - Dietary Evaluation Malnutrition Findings (Please click <Entered> for more info): Nutritional Asmnt/Malnutrition Start: 01/11/19 12: 41 Text: Status: Complete Freq: Protocol: Document 01/11/19 12:41 AXEL (Rec: 01/11/19 12:45 [email or web address] [email or web address]) Nutritional Asmnt/Malnutrition Patient General Information Nutritional Screening Consult Diagnosis PSYCHOSIS Pertinent Medical Hx/Surgical Hx HTN, DM, HYPOTHYROIDISM, PSYCHOSIS, DJD Subjective Information IA CONSULT: DM PT IS A 78 YEAR OLD FEMALE FROM [facility] ADM[facility]ED ON 01/10 D/T AGGRESSIVE BEHAVIOR. PT WAS HERE RECENTLY, DISCHARGED ON . PER MEAL/NUTRITION ACTIVITY RECORD, PT TYPICALLY ATE 100% MEALS. HT: 59 WT: 310 LB (141 KG) ABW: 186 LB (84.66 KG) BMI: 45.78 (OBESE III) GI: WNL, NON-TENDER, LARGE, ROUND BM: NOT NOTED I/O: 240/NOT NOTED SKIN: SKIN BREAKDOWN TO BUTTOCKS AREA LUIS: NOT NOTED [facility]ET [facility], P[facility]ED ESTIMATED ENERGY NEEDS: (OBESE III, ABW) 9384-6839 KCALS (20-25 KCALS/ KG) 68-85 G PRO (0.8-1.0 G/KG) 5994-9795 ML (25-30 ML/KG) PT PO INTAKE: 100% SNACK PROVIDED. Current Diet Order/ Nutrition Support [facility]CHO 45GM, PUREED Pertinent Medications MAALOX (PRN), ALBUTEROL (PRN), LIPITOR, COREG, COLACE, GLUCAGON (PRN), LANTUS, SYNTHROID, INS-SS, COZAAR, MOM (PRN), THEREGRAN, SENNA, FLEET ENEMA (PRN), VIT B COMLPEX WITH VIT C Pertinent Labs 01/10: NA 131, GLUCOSE 363 POC GLUCOSE (LAST 24 HOURS): 257, 250 Nutritional Hx/Data Height 1.75 m Height (Calculated Centimeters) 175.3 Current Weight (lbs) 140.614 kg Weight (Calculated Kilograms) 140.6 Weight (Calculated Grams) 969855.6 Hanna Body Weight 145 % Hanna Body Weight 214 Body Mass Index (BMI) 45.8 Weight Status Morbidly Obese GI Symptoms GI Symptoms None Last BM NOT NOTED Skin Integrity/Comment: SKIN BREAKDOWN TO BUTTOCKS AREA LUIS: NOT NOTED Current %PO Good (75-100%) Estimated Nutritional Goals BEE in Kcals: Adj wt of IBW Calories/Kcals/Kg 20-25 Kcals Calculated 6450-6421 Protein: Adj wt of IBW Protein g/k.8-1.0 Protein Calculated 68-85 Fluid: ml 1667-4875 ML (25-30 ML/KG) Nutritional Problem 1. Problem Problem ALTERED NUTRITION RELATED LABS Etiology R/T ENDOCRINE DYSFUNCTION Signs/Symptoms: AEB HX DM AND GLUCOSE 363 Malnutrition Related to Morbid Obesity Malnutrition related to morbid obesity Weight 200% of ideal wt Query Text:(Any 1 Criteria met) Malnutrition related to morbid obesity Yes Intervention/Recommendation Comments 1. [facility], PUREED DIET ORDERED. 2. CONTNIUE ANTIHYPERGLYCEMIC MEDICATION FOR GLUCOSE CONTROL PER MD ORDER. Expected Outcomes/Goals Expected Outcomes/Goals 1. PO INTAKE TO MEET 75% OF NUTRITIONAL NEEDS. 2. MONITOR PO INTAKE, WT, NUTRITION RELATED LABS AND SKIN INTEGRITY. 3. F/U LOW RISK IN 7 DAYS, 01/18
[2019-02-15] MEDS: APAP/Oxycodone 5/325mg Tab PO PRN (20:44)
[2019-02-15] MEDS: Atorvastatin Calcium 10 MG TAB PO SCH (20:45)
[2019-02-15] MEDS: Insulin Glargine 100 units/ml 10ml Vial SUBQ SCH (21:04)
[2019-02-16] MEDS: INSULIN LISPRO SLIDING SCALE 100 UNITS/ML UNIT SUBQ SCH ×4 (06:43→21:00)
[2019-02-16] MEDS: Levothyroxine 0.075 Mg Tab PO SCH (06:55)
[2019-02-16] MEDS: Albuterol/Ipratropium Neb 3 ML AERS HHN PRN (10:57)
[2019-02-16] MEDS: Vitamin B Complex w/Vitamin C Tab PO SCH (11:05)
[2019-02-16] MEDS: Multivitamin Tab PO SCH (11:09)
[2019-02-16] MEDS: Fluticasone Propionate Nasal 1 SPR SPR NS SCH (11:17)
[2019-02-16] MEDS: Haldol Oral Sol.(concentrate) 10 mg/5 mL Udc PO SCH ×2 (11:20→18:27)
[2019-02-16] MEDS: APAP/Oxycodone 5/325mg Tab PO PRN (14:30)
--- NOTE | 2019-02-16 18:14 | Internal Medicine Prog Note ---
Internal Medicine Subjective - Subjective Service Date: 02/16/19 Patient seen and examined:: with staff (SHE FEELS BETTER) Patient is:: awake, verbal, in bed, talking Per staff patient has:: no adverse event Internal Medicine Objective - Results Result Diagrams: 01/10/19 15:10 01/10/19 15:10 Recent Labs: Laboratory Last Values WBC 8.4 Th/cmm (4.8-10.8) 01/10/19 15:10 RBC 5.16 Mil/cmm (3.80-5.20) 01/10/19 15:10 Hgb 14.9 gm/dL (12-16) 01/10/19 15:10 Hct 44.3 % (41.0-60) 01/10/19 15:10 MCV 85.8 fl (81-100) 01/10/19 15:10 MCH 28.9 pg (27.0-31.0) 01/10/19 15:10 MCHC Differential 33.7 pg (28.0-36.0) 01/10/19 15:10 RDW 12.1 % (11.5-20.0) 01/10/19 15:10 Plt Count 291 Th/cmm (150-400) 01/10/19 15:10 MPV 7.3 fl 01/10/19 15:10 Neutrophils % 59.5 % (40.0-80.0) 01/10/19 15:10 Lymphocytes % 31.2 % (20.0-50.0) 01/10/19 15:10 Monocytes % 5.0 % (2.0-10.0) 01/10/19 15:10 Eosinophils % 4.3 % (0.0-5.0) 01/10/19 15:10 Basophils % 0.0 % (0.0-2.0) 01/10/19 15:10 Sodium 131 mEq/L (136-145) L 01/10/19 15:10 Potassium 4.2 mEq/L (3.5-5.1) 01/10/19 15:10 Chloride 96 mEq/L (98-107) L 01/10/19 15:10 Carbon Dioxide 23.9 mEq/L (21.0-31.0) 01/10/19 15:10 Anion Gap 15.3 (7.0-16.0) 01/10/19 15:10 BUN 18 mg/dL (7-25) 01/10/19 15:10 Creatinine 1.0 mg/dL (0.6-1.2) 01/10/19 15:10 Est GFR ( Amer) TNP 01/10/19 15:10 Est GFR (Non-Af Amer) TNP 01/10/19 15:10 BUN/Creatinine Ratio 18.0 01/10/19 15:10 Glucose 363 mg/dL (70-105) H 01/10/19 15:10 POC Glucose 202 MG/DL (70 - 105) H 02/16/19 11:35 Calcium 9.6 mg/dL (8.6-10.3) 01/10/19 15:10 Total Bilirubin 0.5 mg/dL (0.3-1.0) 01/10/19 15:10 AST 13 U/L (13-39) 01/10/19 15:10 ALT 14 U/L (7-52) 01/10/19 15:10 Alkaline Phosphatase 66 U/L (34-104) 01/10/19 15:10 Troponin I 0.04 ng/mL (0.01-0.05) 01/19/19 22:30 Total Protein 7.1 gm/dL (6.0-8.3) 01/10/19 15:10 Albumin 3.7 gm/dL (3.7-5.3) 01/10/19 15:10 Globulin 3.4 gm/dL 01/10/19 15:10 Albumin/Globulin Ratio 1.1 (1.0-1.8) 01/10/19 15:10 Triglycerides 417 mg/dL (<150) H 01/10/19 15:10 Cholesterol 188 mg/dL (<200) 01/10/19 15:10 LDL Cholesterol Direct 109 mg/dL (75-193) 01/10/19 15:10 HDL Cholesterol 27 mg/dL (23-92) 01/10/19 15:10 TSH 1.76 uIU/ml (0.34-5.60) 01/10/19 15:10 Urine Source CLEAN C 01/14/19 17:00 Urine Color YELLOW 01/14/19 17:00 Urine Clarity CLOUDY (CLEAR) H 01/14/19 17:00 Urine pH 6.5 (4.6 - 8.0) 01/14/19 17:00 Ur Specific [place] <= 1.005 (1.005-1.030) 01/14/19 17:00 Urine Protein NEGATIVE mg/dL (NEGATIVE) 01/14/19 17:00 Urine Glucose (UA) 100 mg/dL (NEGATIVE) H 01/14/19 17:00 Urine Ketones NEGATIVE mg/dL (NEGATIVE) 01/14/19 17:00 Urine Blood SMALL (NEGATIVE) H 01/14/19 17:00 Urine Nitrate NEGATIVE (NEGATIVE) 01/14/19 17:00 Urine Bilirubin NEGATIVE (NEGATIVE) 01/14/19 17:00 Urine Urobilinogen 0.2 E.U./dL (0.2 - 1.0) 01/14/19 17:00 Ur Leukocyte Esterase MODERATE (NEGATIVE) H 01/14/19 17:00 Urine RBC 2-5 /hpf (0-5) 01/14/19 17:00 Urine WBC 6-10 /hpf (0-5) H 01/14/19 17:00 Ur Epithelial Cells FEW /lpf (FEW) 01/14/19 17:00 Urine Bacteria MANY /hpf (NONE SEEN) H 01/14/19 17:00 RPR NONREACTIVE (NONREACTIVE) 01/10/19 15:10 - Physical Exam Vitals and I&O: Vital Signs Temp 98.5 F 02/16/19 14:00 Pulse 72 02/16/19 14:00 Resp 20 02/16/19 14:00 BP 138/66 02/16/19 14:00 Pulse Ox 96 02/16/19 14:00 Intake & Output 02/15/19 02/16/19 02/16/19 18:59 06:59 18:59 Intake Total 1200 900 Balance 1200 900 Intake: Oral 1200 900 Other: # Voids 4 3 # Bowel Movements 1 2 Active Medications: Current Medications Acetaminophen (Tylenol Extra Strength) 500 mg PO Q4H PRN PRN Reason: Pain or Fever >101 Stop: 03/12/19 00:41 Last Admin: 02/09/19 18:22 Dose: 500 mg Al Hydrox/Mg Hydrox/Simethicone (Maalox) 30 ml PO Q4HR PRN PRN Reason: GI DISTRESS Stop: 03/11/19 19:56 Albuterol/Ipratropium (Duoneb Neb) 3 ml HHN Q4H PRN PRN Reason: Wheezing Stop: 03/12/19 00:48 Last Admin: 02/16/19 10:57 Dose: 3 ml Aripiprazole (Abilify) 30 mg PO DAILY [facility]; Protocol Stop: 03/17/19 08:59 Last Admin: 02/16/19 11:04 Dose: 30 mg Aspirin (Ecotrin) 81 mg PO DAILY [facility] Stop: 03/12/19 08:59 Last Admin: 02/16/19 11:06 Dose: 81 mg Atorvastatin Calcium (Lipitor) 20 mg PO HS [facility]; Protocol Stop: 03/12/19 20:59 Last Admin: 02/15/19 20:45 Dose: 20 mg Brimonidine Tartrate (Alphagan 0.1% Ophth Soln) 1 drop EACH EYE TID [facility] Stop: 03/12/19 08:59 Last Admin: 02/16/19 11:16 Dose: Not Given Carvedilol (Coreg) 12.5 mg PO BID [facility] Stop: 03/21/19 08:59 Last Admin: 02/16/19 11:14 Dose: 12.5 mg Docusate Sodium (Colace) 100 mg PO BID [facility] Stop: 03/12/19 08:59 Last Admin: 02/16/19 11:10 Dose: 100 mg Duloxetine HCl (Cymbalta) 60 mg PO DAILY [facility]; Protocol Stop: 04/16/19 13:59 Last Admin: 02/16/19 11:07 Dose: 60 mg Fluticasone Propionate (Flonase) 1 spr NS DAILY [facility] Stop: 03/12/19 08:59 Last Admin: 02/16/19 11:17 Dose: Not Given Glucagon (Glucagen) 1 mg IM PRN PRN PRN Reason: BS below 70 Stop: 03/11/19 23:24 Haloperidol Lactate (Haldol Concentrate 10mg/5ml Susp) 5 mg PO BID [facility]; Protocol Stop: 03/18/19 08:59 Last Admin: 02/16/19 11:20 Dose: 5 mg Hydralazine HCl (Apresoline) 10 mg PO BID [facility] Stop: 03/12/19 08:59 Last Admin: 02/16/19 11:18 Dose: 10 mg Ibuprofen (Motrin) 600 mg PO Q8H PRN PRN Reason: breakthrough pain Stop: 03/12/19 00:35 Last Admin: 02/16/19 11:11 Dose: 600 mg Insulin Glargine (Lantus Insulin) 26 units SUBQ HS CAL Stop: 03/12/19 20:59 Last Admin: 02/15/19 21:04 Dose: 26 units Insulin Human Lispro (Humalog Insulin Sliding Scale) 0 units SUBQ ACHS [facility]; Protocol Stop: 03/11/19 20:59 Last Admin: 02/16/19 11:30 Dose: Not Given Isosorbide Dinitrate (Isordil) 10 mg PO Q8HR [facility] Stop: 03/12/19 04:59 Last Admin: 02/16/19 13:00 Dose: 10 mg Latanoprost (Xalatan 0.005% Oph Soln) 1 drop EACH EYE HS [facility] Stop: 03/12/19 20:59 Last Admin: 02/15/19 21:05 Dose: 1 drop Levothyroxine Sodium (Synthroid) 0.075 mg PO QDAC [facility] Stop: 03/12/19 07:29 Last Admin: 02/16/19 06:55 Dose: Not Given Loratadine (Claritin) 10 mg PO DAILY [facility] Stop: 03/12/19 08:59 Last Admin: 02/16/19 11:06 Dose: 10 mg Losartan Potassium (Cozaar) 50 mg PO DAILY [facility] Stop: 03/12/19 08:59 Last Admin: 02/16/19 11:12 Dose: 50 mg Magnesium Hydroxide (Milk Of Magnesia) 30 ml PO HS PRN PRN Reason: Constipation Multivitamins/Vitamin C (Theragran) 1 tab PO DAILY [facility] Stop: 03/12/19 08:59 Last Admin: 02/16/19 11:09 Dose: 1 tab Naproxen (Naprosyn) 500 mg PO BIDWM [facility] Stop: 03/20/19 17:59 Last Admin: 02/16/19 11:21 Dose: Not Given Nitroglycerin (Nitrostat) 0.4 mg SL Q5MIN PRN PRN Reason: CHEST PAIN Stop: 03/11/19 23:24 Last Admin: 02/12/19 06:52 Dose: 0.4 mg Oxycodone/Acetaminophen (Percocet 5/325mg Oral Tab) 1 tab PO Q4H PRN PRN Reason: severe pain (7-10) Stop: 04/16/19 11:01 Last Admin: 02/16/19 14:30 Dose: 1 tab Senna (Senna) 17.2 mg PO HS CAL Stop: 03/12/19 20:59 Last Admin: 02/15/19 20:44 Dose: 17.2 mg Sodium Phosphate (Fleet Enema) 135 ml RC DAILY PRN PRN Reason: Constipation Stop: 03/11/19 23:24 Vitamin B Complex/Vit C/Folic Acid (Vitamin B Complex W/Vitamin C) 1 tab PO DAILY CAL Stop: 03/12/19 08:59 Last Admin: 02/16/19 11:05 Dose: 1 tab Zolpidem Tartrate (Ambien) 5 mg PO HS PRN PRN Reason: Insomnia Stop: 04/16/19 10:58 General: alert HEENT: NC/AT, PERRLA, EOMI, anicteric sclerae, throat clear Neck: Supple, No JVD, No thyromegaly, +2 carotid pulse wo bruit, No LAD Lungs: CTAB Cardiovascular: RRR, Normal S1, Normal S2, without murmur Abdomen: soft, non-tender, non-distended Extremities: clear Neurological: no change Internal Medicine Assmt/Plan - Assessment Assessment: 1.DM. 2.HTN. 3.HYPOTHYROIDISM. 5.PSYCHOSIS - Plan Plan: CONTINUE ON CURRENT MEDICATION AND DIET. Nutritional Asmnt/Malnutr-PDOC - Dietary Evaluation Malnutrition Findings (Please click <Entered> for more info): Nutritional Asmnt/Malnutrition Start: 01/11/19 12: 41 Text: Status: Complete Freq: Protocol: Document 01/11/19 12:41 AXEL (Rec: 01/11/19 12:45 [email or web address] [email or web address]) Nutritional Asmnt/Malnutrition Patient General Information Nutritional Screening Consult Diagnosis PSYCHOSIS Pertinent Medical Hx/Surgical Hx HTN, DM, HYPOTHYROIDISM, PSYCHOSIS, DJD Subjective Information IA CONSULT: DM PT IS A 78 YEAR OLD FEMALE [facility] AD[facility] ON 01/10 D/T AGGRESSIVE BEHAVIOR. PT WAS HERE RECENTLY, DISCHARGED ON . PER MEAL/NUTRITION ACTIVITY RECORD, PT TYPICALLY ATE 100% MEALS. HT: 59 WT: 310 LB (141 KG) ABW: 186 LB (84.66 KG) BMI: 45.78 (OBESE III) GI: WNL, NON-TENDER, LARGE, ROUND BM: NOT NOTED I/O: 240/NOT NOTED SKIN: SKIN BREAKDOWN TO BUTTOCKS AREA LUIS: NOT NOTED [facility], PUREED ESTIMATED ENERGY NEEDS: (OBESE III, ABW) 3641-6295 KCALS (20-25 KCALS/ KG) 68-85 G PRO (0.8-1.0 G/KG) 9829-7394 ML (25-30 ML/KG) PT PO INTAKE: 100% SNACK PROVIDED. Current Diet Order/ Nutrition Support CCHO 45GM, PUREED Pertinent Medications MAALOX (PRN), ALBUTEROL (PRN), LIPITOR, COREG, COLACE, GLUCAGON (PRN), LANTUS, SYNTHROID, INS-SS, COZAAR, MOM (PRN), THEREGRAN, SENNA, FLEET ENEMA (PRN), VIT B COMLPEX WITH VIT C Pertinent Labs 01/10: NA 131, GLUCOSE 363 POC GLUCOSE (LAST 24 HOURS): 257, 250 Nutritional Hx/Data Height 1.75 m Height (Calculated Centimeters) 175.3 Current Weight (lbs) 140.614 kg Weight (Calculated Kilograms) 140.6 Weight (Calculated Grams) 876917.6 [place] Body Weight 145 % [place] Body Weight 214 Body Mass Index (BMI) 45.8 Weight Status Morbidly Obese GI Symptoms GI Symptoms None Last BM NOT NOTED Skin Integrity/Comment: SKIN BREAKDOWN TO BUTTOCKS AREA LUIS: NOT NOTED Current %PO Good (75-100%) Estimated Nutritional Goals BEE in Kcals: Adj wt of IBW Calories/Kcals/Kg 20-25 Kcals Calculated 1953-9090 Protein: Adj wt of IBW Protein g/k.8-1.0 Protein Calculated 68-85 Fluid: ml 4444-9230 ML (25-30 ML/KG) Nutritional Problem 1. Problem Problem ALTERED NUTRITION RELATED LABS Etiology R/T ENDOCRINE DYSFUNCTION Signs/Symptoms: AEB HX DM AND GLUCOSE 363 Malnutrition Related to Morbid Obesity Malnutrition related to morbid obesity Weight 200% of ideal wt Query Text:(Any 1 Criteria met) Malnutrition related to morbid obesity Yes Intervention/Recommendation Comments 1. CONTINUE WITH [facility] 45GM, PUREED DIET ORDERED. 2. CONTNIUE ANTIHYPERGLYCEMIC MEDICATION FOR GLUCOSE CONTROL PER MD ORDER. Expected Outcomes/Goals Expected Outcomes/Goals 1. PO INTAKE TO MEET 75% OF NUTRITIONAL NEEDS. 2. MONITOR PO INTAKE, WT, NUTRITION RELATED LABS AND SKIN INTEGRITY. 3. F/U LOW RISK IN 7 DAYS, 01/18
--- NOTE | 2019-02-16 19:24 | Progress Notes ---
DATE: 02/16/2019 SUBJECTIVE: The patient was seen and evaluated. The patient's chart reviewed. Denies any complications and side effects of the medications. Today on [id number] evaluation, the patient reports that she is anxiously waiting to be discharged. On examination, although compliant with medications. No side effects. He needs a lot of redirection, still depressive symptoms, continue to linger. ASSESSMENT AND PLAN: History of schizoaffective disorder, depressive type. We will continue with the current medication regimen, which includes Abilify 30 mg a day, Cymbalta 60 mg a day, Haloperidol 5 mg p.o. b.i.d. JOB# [id number]
[2019-02-16] MEDS: Atorvastatin Calcium 10 MG TAB PO SCH (21:00)
[2019-02-16] MEDS: Insulin Glargine 100 units/ml 10ml Vial SUBQ SCH (21:55)
[2019-02-17] MEDS: Levothyroxine 0.075 Mg Tab PO SCH (06:32)
[2019-02-17] MEDS: INSULIN LISPRO SLIDING SCALE 100 UNITS/ML UNIT SUBQ SCH ×4 (06:32→21:55)
[2019-02-17] MEDS: Haldol Oral Sol.(concentrate) 10 mg/5 mL Udc PO SCH ×2 (09:00→17:47)
[2019-02-17] MEDS: Multivitamin Tab PO SCH (09:00)
[2019-02-17] MEDS: Fluticasone Propionate Nasal 1 SPR SPR NS SCH (09:00)
[2019-02-17] MEDS: Vitamin B Complex w/Vitamin C Tab PO SCH (10:00)
[2019-02-17] MEDS ORDERED: guaiFENesin 200 MG/10 ML UDC PO PRN (18:23)
--- NOTE | 2019-02-17 18:25 | Internal Medicine Prog Note ---
Internal Medicine Subjective - Subjective Service Date: 02/17/19 Patient seen and examined:: without staff (she has some cough,no sob) Patient is:: awake, verbal, in bed, talking Per staff patient has:: no adverse event Internal Medicine Objective - Results Result Diagrams: 01/10/19 15:10 01/10/19 15:10 Recent Labs: Laboratory Last Values WBC 8.4 Th/cmm (4.8-10.8) 01/10/19 15:10 RBC 5.16 Mil/cmm (3.80-5.20) 01/10/19 15:10 Hgb 14.9 gm/dL (12-16) 01/10/19 15:10 Hct 44.3 % (41.0-60) 01/10/19 15:10 MCV 85.8 fl (81-100) 01/10/19 15:10 MCH 28.9 pg (27.0-31.0) 01/10/19 15:10 MCHC Differential 33.7 pg (28.0-36.0) 01/10/19 15:10 RDW 12.1 % (11.5-20.0) 01/10/19 15:10 Plt Count 291 Th/cmm (150-400) 01/10/19 15:10 MPV 7.3 fl 01/10/19 15:10 Neutrophils % 59.5 % (40.0-80.0) 01/10/19 15:10 Lymphocytes % 31.2 % (20.0-50.0) 01/10/19 15:10 Monocytes % 5.0 % (2.0-10.0) 01/10/19 15:10 Eosinophils % 4.3 % (0.0-5.0) 01/10/19 15:10 Basophils % 0.0 % (0.0-2.0) 01/10/19 15:10 Sodium 131 mEq/L (136-145) L 01/10/19 15:10 Potassium 4.2 mEq/L (3.5-5.1) 01/10/19 15:10 Chloride 96 mEq/L (98-107) L 01/10/19 15:10 Carbon Dioxide 23.9 mEq/L (21.0-31.0) 01/10/19 15:10 Anion Gap 15.3 (7.0-16.0) 01/10/19 15:10 BUN 18 mg/dL (7-25) 01/10/19 15:10 Creatinine 1.0 mg/dL (0.6-1.2) 01/10/19 15:10 Est GFR ( Amer) TNP 01/10/19 15:10 Est GFR (Non-Af Amer) TNP 01/10/19 15:10 BUN/Creatinine Ratio 18.0 01/10/19 15:10 Glucose 363 mg/dL (70-105) H 01/10/19 15:10 POC Glucose 152 MG/DL (70 - 105) H 02/17/19 05:50 Calcium 9.6 mg/dL (8.6-10.3) 01/10/19 15:10 Total Bilirubin 0.5 mg/dL (0.3-1.0) 01/10/19 15:10 AST 13 U/L (13-39) 01/10/19 15:10 ALT 14 U/L (7-52) 01/10/19 15:10 Alkaline Phosphatase 66 U/L (34-104) 01/10/19 15:10 Troponin I 0.04 ng/mL (0.01-0.05) 01/19/19 22:30 Total Protein 7.1 gm/dL (6.0-8.3) 01/10/19 15:10 Albumin 3.7 gm/dL (3.7-5.3) 01/10/19 15:10 Globulin 3.4 gm/dL 01/10/19 15:10 Albumin/Globulin Ratio 1.1 (1.0-1.8) 01/10/19 15:10 Triglycerides 417 mg/dL (<150) H 01/10/19 15:10 Cholesterol 188 mg/dL (<200) 01/10/19 15:10 LDL Cholesterol Direct 109 mg/dL (75-193) 01/10/19 15:10 HDL Cholesterol 27 mg/dL (23-92) 01/10/19 15:10 TSH 1.76 uIU/ml (0.34-5.60) 01/10/19 15:10 Urine Source CLEAN C 01/14/19 17:00 Urine Color YELLOW 01/14/19 17:00 Urine Clarity CLOUDY (CLEAR) H 01/14/19 17:00 Urine pH 6.5 (4.6 - 8.0) 01/14/19 17:00 Ur Specific [place] <= 1.005 (1.005-1.030) 01/14/19 17:00 Urine Protein NEGATIVE mg/dL (NEGATIVE) 01/14/19 17:00 Urine Glucose (UA) 100 mg/dL (NEGATIVE) H 01/14/19 17:00 Urine Ketones NEGATIVE mg/dL (NEGATIVE) 01/14/19 17:00 Urine Blood SMALL (NEGATIVE) H 01/14/19 17:00 Urine Nitrate NEGATIVE (NEGATIVE) 01/14/19 17:00 Urine Bilirubin NEGATIVE (NEGATIVE) 01/14/19 17:00 Urine Urobilinogen 0.2 E.U./dL (0.2 - 1.0) 01/14/19 17:00 Ur Leukocyte Esterase MODERATE (NEGATIVE) H 01/14/19 17:00 Urine RBC 2-5 /hpf (0-5) 01/14/19 17:00 Urine WBC 6-10 /hpf (0-5) H 01/14/19 17:00 Ur Epithelial Cells FEW /lpf (FEW) 01/14/19 17:00 Urine Bacteria MANY /hpf (NONE SEEN) H 01/14/19 17:00 RPR NONREACTIVE (NONREACTIVE) 01/10/19 15:10 - Physical Exam Vitals and I&O: Vital Signs Temp 98.4 F 02/17/19 14:00 Pulse 76 02/17/19 17:49 Resp 20 02/17/19 14:00 BP 184/86 02/17/19 17:49 Pulse Ox 98 02/17/19 14:00 Intake & Output 02/16/19 02/17/19 02/17/19 18:59 06:59 18:59 Intake Total 900 220 900 Balance 900 220 900 Intake: Oral 900 220 900 Other: # Voids 3 2 3 # Bowel Movements 2 0 Active Medications: Current Medications Acetaminophen (Tylenol Extra Strength) 500 mg PO Q4H PRN PRN Reason: Pain or Fever >101 Stop: 03/12/19 00:41 Last Admin: 02/09/19 18:22 Dose: 500 mg Al Hydrox/Mg Hydrox/Simethicone (Maalox) 30 ml PO Q4HR PRN PRN Reason: GI DISTRESS Stop: 03/11/19 19:56 Albuterol/Ipratropium (Duoneb Neb) 3 ml HHN Q4H PRN PRN Reason: Wheezing Stop: 03/12/19 00:48 Last Admin: 02/16/19 10:57 Dose: 3 ml Aripiprazole (Abilify) 30 mg PO DAILY [facility]; Protocol Stop: 03/17/19 08:59 Last Admin: 02/17/19 11:11 Dose: 30 mg Aspirin (Ecotrin) 81 mg PO DAILY [facility] Stop: 03/12/19 08:59 Last Admin: 02/17/19 10:00 Dose: 81 mg Atorvastatin Calcium (Lipitor) 20 mg PO HS [facility]; Protocol Stop: 03/12/19 20:59 Last Admin: 02/16/19 21:00 Dose: 20 mg Brimonidine Tartrate (Alphagan 0.1% Ophth Soln) 1 drop EACH EYE TID [facility] Stop: 03/12/19 08:59 Last Admin: 02/17/19 15:08 Dose: Not Given Carvedilol (Coreg) 12.5 mg PO BID [facility] Stop: 03/21/19 08:59 Last Admin: 02/17/19 17:49 Dose: 12.5 mg Docusate Sodium (Colace) 100 mg PO BID [facility] Stop: 03/12/19 08:59 Last Admin: 02/17/19 17:50 Dose: 100 mg Duloxetine HCl (Cymbalta) 60 mg PO DAILY [facility]; Protocol Stop: 04/16/19 13:59 Last Admin: 02/17/19 10:00 Dose: 60 mg Fluticasone Propionate (Flonase) 1 spr NS DAILY [facility] Stop: 03/12/19 08:59 Last Admin: 02/17/19 09:00 Dose: Not Given Glucagon (Glucagen) 1 mg IM PRN PRN PRN Reason: BS below 70 Stop: 03/11/19 23:24 Haloperidol Lactate (Haldol Concentrate 10mg/5ml Susp) 5 mg PO BID [facility]; Protocol Stop: 03/18/19 08:59 Last Admin: 02/17/19 17:47 Dose: 5 mg Hydralazine HCl (Apresoline) 10 mg PO BID [facility] Stop: 03/12/19 08:59 Last Admin: 02/17/19 17:47 Dose: 10 mg Ibuprofen (Motrin) 600 mg PO Q8H PRN PRN Reason: breakthrough pain Stop: 03/12/19 00:35 Last Admin: 02/17/19 11:20 Dose: 600 mg Insulin Glargine (Lantus Insulin) 26 units SUBQ HS CAL Stop: 03/12/19 20:59 Last Admin: 02/16/19 21:55 Dose: 26 units Insulin Human Lispro (Humalog Insulin Sliding Scale) [address] [facility]; Protocol Stop: 03/11/19 20:59 Last Admin: 02/17/19 17:51 Dose: Not Given Isosorbide Dinitrate (Isordil) 10 mg PO Q8HR [facility] Stop: 03/12/19 04:59 Last Admin: 02/17/19 13:00 Dose: 10 mg Latanoprost (Xalatan 0.005% Oph Soln) 1 drop EACH EYE HS [facility] Stop: 03/12/19 20:59 Last Admin: 02/16/19 21:00 Dose: Not Given Levothyroxine Sodium (Synthroid) 0.075 mg PO QDAC [facility] Stop: 03/12/19 07:29 Last Admin: 02/17/19 06:32 Dose: 0.075 mg Loratadine (Claritin) 10 mg PO DAILY [facility] Stop: 03/12/19 08:59 Last Admin: 02/17/19 10:00 Dose: 10 mg Losartan Potassium (Cozaar) 50 mg PO DAILY [facility] Stop: 03/12/19 08:59 Last Admin: 02/17/19 10:00 Dose: 50 mg Magnesium Hydroxide (Milk Of Magnesia) 30 ml PO HS PRN PRN Reason: Constipation Multivitamins/Vitamin C (Theragran) 1 tab PO DAILY CAL Stop: 03/12/19 08:59 Last Admin: 02/17/19 09:00 Dose: 1 tab Naproxen (Naprosyn) 500 mg PO BIDWM CAL Stop: 03/20/19 17:59 Last Admin: 02/17/19 08:00 Dose: Not Given Nitroglycerin (Nitrostat) 0.4 mg SL Q5MIN PRN PRN Reason: CHEST PAIN Stop: 03/11/19 23:24 Last Admin: 02/12/19 06:52 Dose: 0.4 mg Oxycodone/Acetaminophen (Percocet 5/325mg Oral Tab) 1 tab PO Q4H PRN PRN Reason: severe pain (7-10) Stop: 04/16/19 11:01 Last Admin: 02/16/19 14:30 Dose: 1 tab Senna (Senna) 17.2 mg PO HS CAL Stop: 03/12/19 20:59 Last Admin: 02/16/19 21:00 Dose: 17.2 mg Sodium Phosphate (Fleet Enema) 135 ml RC DAILY PRN PRN Reason: Constipation Stop: 03/11/19 23:24 Vitamin B Complex/Vit C/Folic Acid (Vitamin B Complex W/Vitamin C) 1 tab PO DAILY CAL Stop: 03/12/19 08:59 Last Admin: 02/17/19 10:00 Dose: 1 tab Zolpidem Tartrate (Ambien) 5 mg PO HS PRN PRN Reason: Insomnia Stop: 04/16/19 10:58 General: alert HEENT: NC/AT, PERRLA, EOMI, anicteric sclerae, throat clear Neck: Supple, No JVD, No thyromegaly, +2 carotid pulse wo bruit, No LAD Lungs: CTAB Cardiovascular: RRR, Normal S1, Normal S2, without murmur Abdomen: soft, non-tender, non-distended Extremities: clear Neurological: no change Internal Medicine Assmt/Plan - Assessment Assessment: 1.DM. 2.HTN. 3.HYPOTHYROIDISM. 5.PSYCHOSIS - Plan Plan: CONTINUE ON CURRENT MEDICATION AND DIET.ROBITUSSIN 10CC PO TID Nutritional Asmnt/Malnutr-PDOC - Dietary Evaluation Malnutrition Findings (Please click <Entered> for more info): Nutritional Asmnt/Malnutrition Start: 01/11/19 12: 41 Text: Status: Complete Freq: Protocol: Document 01/11/19 12:41 AXEL (Rec: 01/11/19 12:45 [email or web address] [email or web address]) Nutritional Asmnt/Malnutrition Patient General Information Nutritional Screening Consult Diagnosis PSYCHOSIS Pertinent Medical Hx/Surgical Hx HTN, DM, HYPOTHYROIDISM, PSYCHOSIS, DJD Subjective Information IA CONSULT: DM PT IS A 78 YEAR OLD FEMALE FROM [facility] ADMITTED ON 01/10 D/T AGGRESSIVE BEHAVIOR. PT WAS HERE RECENTLY, DISCHARGED ON . PER MEAL/NUTRITION ACTIVITY RECORD, PT TYPICALLY ATE 100% MEALS. HT: 59 WT: 310 LB (141 KG) ABW: 186 LB (84.66 KG) BMI: 45.78 (OBESE III) GI: WNL, NON-TENDER, LARGE, ROUND BM: NOT NOTED I/O: 240/NOT NOTED SKIN: SKIN BREAKDOWN TO BUTTOCKS AREA LUIS: NOT NOTED DIET ORDER: CCHO 45GM, PUREED ESTIMATED ENERGY NEEDS: (OBESE III, ABW) 5111-7443 KCALS (20-25 KCALS/ KG) 68-85 G PRO (0.8-1.0 G/KG) 9172-9139 ML (25-30 ML/KG) PT PO INTAKE: 100% SNACK PROVIDED. Current Diet Order/ Nutrition Support CCHO 45GM, PUREED Pertinent Medications MAALOX (PRN), ALBUTEROL (PRN), LIPITOR, COREG, COLACE, GLUCAGON (PRN), LANTUS, SYNTHROID, INS-SS, COZAAR, MOM (PRN), THEREGRAN, SENNA, FLEET ENEMA (PRN), VIT B COMLPEX WITH VIT C Pertinent Labs 01/10: NA 131, GLUCOSE 363 POC GLUCOSE (LAST 24 HOURS): 257, 250 Nutritional Hx/Data Height 1.75 m Height (Calculated Centimeters) 175.3 Current Weight (lbs) 140.614 kg Weight (Calculated Kilograms) 140.6 Weight (Calculated Grams) 773615.6 [place] Body Weight 145 % [place] Body Weight 214 Body Mass Index (BMI) 45.8 Weight Status Morbidly Obese GI Symptoms GI Symptoms None Last BM NOT NOTED Skin Integrity/Comment: SKIN BREAKDOWN TO BUTTOCKS AREA LUIS: NOT NOTED Current %PO Good (75-100%) Estimated Nutritional Goals BEE in Kcals: Adj wt of IBW Calories/Kcals/Kg 20-25 Kcals Calculated 9246-3810 Protein: Adj wt of IBW Protein g/k.8-1.0 Protein Calculated 68-85 Fluid: ml 6329-0852 ML (25-30 ML/KG) Nutritional Problem 1. Problem Problem ALTERED NUTRITION RELATED LABS Etiology R/T ENDOCRINE DYSFUNCTION Signs/Symptoms: AEB HX DM AND GLUCOSE 363 Malnutrition Related to Morbid Obesity Malnutrition related to morbid obesity Weight 200% of ideal wt Query Text:(Any 1 Criteria met) Malnutrition related to morbid obesity Yes Intervention/Recommendation Comments [facility]. [facility] P[facility]ED DIET ORDERED. 2. CONTNIUE ANTIHYPERGLYCEMIC MEDICATION FOR GLUCOSE CONTROL PER MD ORDER. Expected Outcomes/Goals Expected Outcomes/Goals 1. PO INTAKE TO MEET 75% OF NUTRITIONAL NEEDS. 2. MONITOR PO INTAKE, WT, NUTRITION RELATED LABS AND SKIN INTEGRITY. 3. F/U LOW RISK IN 7 DAYS, 01/18
--- NOTE | 2019-02-17 20:26 | Progress Notes ---
DATE: 02/17/[address] Madrid covering for Dr. Velazquez. SUBJECTIVE: Today on [id number] evaluation, observed to be easily anxious, stressful. She does report mild depressive symptoms because she is "locked up in the hospital." MENTAL STATUS EXAMINATION: Anxious, depressed. ASSESSMENT AND PLAN: History of schizoaffective disorder, compliant with medications. We will continue with the current medication regimen and mental nurse case manager for further stabilization. JOB# [id number]
[2019-02-17] MEDS: Guaifenesin DM 10 ML UDC PO SCH (21:55)
[2019-02-17] MEDS: Atorvastatin Calcium 10 MG TAB PO SCH (21:55)
[2019-02-17] MEDS: Insulin Glargine 100 units/ml 10ml Vial SUBQ SCH (21:55)
[2019-02-18] MEDS: Levothyroxine 0.075 Mg Tab PO SCH (06:39)
[2019-02-18] MEDS: INSULIN LISPRO SLIDING SCALE 100 UNITS/ML UNIT SUBQ SCH ×3 (07:07→22:21)
[2019-02-18] MEDS: Multivitamin Tab PO SCH (09:36)
[2019-02-18] MEDS: Vitamin B Complex w/Vitamin C Tab PO SCH (09:37)
[2019-02-18] MEDS: Fluticasone Propionate Nasal 1 SPR SPR NS SCH (09:39)
[2019-02-18] MEDS: Haldol Oral Sol.(concentrate) 10 mg/5 mL Udc PO SCH ×2 (09:39→17:24)
[2019-02-18] MEDS: Guaifenesin DM 10 ML UDC PO SCH ×3 (09:39→22:00)
[2019-02-18] MEDS: Albuterol/Ipratropium Neb 3 ML AERS HHN PRN (19:24)
--- NOTE | 2019-02-18 20:13 | Internal Medicine Prog Note ---
Internal Medicine Subjective - Subjective Service Date: 02/18/19 Patient seen and examined:: without staff (SHE FEELS BETTER,LESS COUGH) Patient is:: awake, verbal, in bed, talking Per staff patient has:: no adverse event Internal Medicine Objective - Results Result Diagrams: 01/10/19 15:10 01/10/19 15:10 Recent Labs: Laboratory Last Values WBC 8.4 Th/cmm (4.8-10.8) 01/10/19 15:10 RBC 5.16 Mil/cmm (3.80-5.20) 01/10/19 15:10 Hgb 14.9 gm/dL (12-16) 01/10/19 15:10 Hct 44.3 % (41.0-60) 01/10/19 15:10 MCV 85.8 fl (81-100) 01/10/19 15:10 MCH 28.9 pg (27.0-31.0) 01/10/19 15:10 MCHC Differential 33.7 pg (28.0-36.0) 01/10/19 15:10 RDW 12.1 % (11.5-20.0) 01/10/19 15:10 Plt Count 291 Th/cmm (150-400) 01/10/19 15:10 MPV 7.3 fl 01/10/19 15:10 Neutrophils % 59.5 % (40.0-80.0) 01/10/19 15:10 Lymphocytes % 31.2 % (20.0-50.0) 01/10/19 15:10 Monocytes % 5.0 % (2.0-10.0) 01/10/19 15:10 Eosinophils % 4.3 % (0.0-5.0) 01/10/19 15:10 Basophils % 0.0 % (0.0-2.0) 01/10/19 15:10 Sodium 131 mEq/L (136-145) L 01/10/19 15:10 Potassium 4.2 mEq/L (3.5-5.1) 01/10/19 15:10 Chloride 96 mEq/L (98-107) L 01/10/19 15:10 Carbon Dioxide 23.9 mEq/L (21.0-31.0) 01/10/19 15:10 Anion Gap 15.3 (7.0-16.0) 01/10/19 15:10 BUN 18 mg/dL (7-25) 01/10/19 15:10 Creatinine 1.0 mg/dL (0.6-1.2) 01/10/19 15:10 Est GFR ( Amer) TNP 01/10/19 15:10 Est GFR (Non-Af Amer) TNP 01/10/19 15:10 BUN/Creatinine Ratio 18.0 01/10/19 15:10 Glucose 363 mg/dL (70-105) H 01/10/19 15:10 POC Glucose 207 MG/DL (70 - 105) H 02/18/19 11:47 Calcium 9.6 mg/dL (8.6-10.3) 01/10/19 15:10 Total Bilirubin 0.5 mg/dL (0.3-1.0) 01/10/19 15:10 AST 13 U/L (13-39) 01/10/19 15:10 ALT 14 U/L (7-52) 01/10/19 15:10 Alkaline Phosphatase 66 U/L (34-104) 01/10/19 15:10 Troponin I 0.04 ng/mL (0.01-0.05) 01/19/19 22:30 Total Protein 7.1 gm/dL (6.0-8.3) 01/10/19 15:10 Albumin 3.7 gm/dL (3.7-5.3) 01/10/19 15:10 Globulin 3.4 gm/dL 01/10/19 15:10 Albumin/Globulin Ratio 1.1 (1.0-1.8) 01/10/19 15:10 Triglycerides 417 mg/dL (<150) H 01/10/19 15:10 Cholesterol 188 mg/dL (<200) 01/10/19 15:10 LDL Cholesterol Direct 109 mg/dL (75-193) 01/10/19 15:10 HDL Cholesterol 27 mg/dL (23-92) 01/10/19 15:10 TSH 1.76 uIU/ml (0.34-5.60) 01/10/19 15:10 Urine Source CLEAN C 01/14/19 17:00 Urine Color YELLOW 01/14/19 17:00 Urine Clarity CLOUDY (CLEAR) H 01/14/19 17:00 Urine pH 6.5 (4.6 - 8.0) 01/14/19 17:00 Ur Specific [place] <= 1.005 (1.005-1.030) 01/14/19 17:00 Urine Protein NEGATIVE mg/dL (NEGATIVE) 01/14/19 17:00 Urine Glucose (UA) 100 mg/dL (NEGATIVE) H 01/14/19 17:00 Urine Ketones NEGATIVE mg/dL (NEGATIVE) 01/14/19 17:00 Urine Blood SMALL (NEGATIVE) H 01/14/19 17:00 Urine Nitrate NEGATIVE (NEGATIVE) 01/14/19 17:00 Urine Bilirubin NEGATIVE (NEGATIVE) 01/14/19 17:00 Urine Urobilinogen 0.2 E.U./dL (0.2 - 1.0) 01/14/19 17:00 Ur Leukocyte Esterase MODERATE (NEGATIVE) H 01/14/19 17:00 Urine RBC 2-5 /hpf (0-5) 01/14/19 17:00 Urine WBC 6-10 /hpf (0-5) H 01/14/19 17:00 Ur Epithelial Cells FEW /lpf (FEW) 01/14/19 17:00 Urine Bacteria MANY /hpf (NONE SEEN) H 01/14/19 17:00 RPR NONREACTIVE (NONREACTIVE) 01/10/19 15:10 - Physical Exam Vitals and I&O: Vital Signs Temp 97.4 F 02/18/19 14:20 Pulse 76 02/18/19 19:20 Resp 18 02/18/19 19:20 BP 165/83 02/18/19 17:24 Pulse Ox 95 02/18/19 19:20 Intake & Output 02/18/19 02/18/19 02/19/19 06:59 18:59 06:59 Intake Total 120 1200 Balance 120 1200 Intake: Oral 120 1200 Other: # Voids 3 5 # Bowel Movements 1 Active Medications: Current Medications Acetaminophen (Tylenol Extra Strength) 500 mg PO Q4H PRN PRN Reason: Pain or Fever >101 Stop: 03/12/19 00:41 Last Admin: 02/09/19 18:22 Dose: 500 mg Al Hydrox/Mg Hydrox/Simethicone (Maalox) 30 ml PO Q4HR PRN PRN Reason: GI DISTRESS Stop: 03/11/19 19:56 Albuterol/Ipratropium (Duoneb Neb) 3 ml HHN Q4H PRN PRN Reason: Wheezing Stop: 03/12/19 00:48 Last Admin: 02/18/19 19:24 Dose: 3 ml Aripiprazole (Abilify) 30 mg PO DAILY [facility]; Protocol Stop: 03/17/19 08:59 Last Admin: 02/18/19 09:36 Dose: 30 mg Aspirin (Ecotrin) 81 mg PO DAILY [facility] Stop: 03/12/19 08:59 Last Admin: 02/18/19 09:36 Dose: 81 mg Atorvastatin Calcium (Lipitor) 20 mg PO HS [facility]; Protocol Stop: 03/12/19 20:59 Last Admin: 02/17/19 21:55 Dose: 20 mg Brimonidine Tartrate (Alphagan 0.1% Ophth Soln) 1 drop EACH EYE TID [facility] Stop: 03/12/19 08:59 Last Admin: 02/18/19 17:24 Dose: Not Given Carvedilol (Coreg) 12.5 mg PO BID [facility] Stop: 03/21/19 08:59 Last Admin: 02/18/19 17:24 Dose: 12.5 mg Docusate Sodium (Colace) 100 mg PO BID [facility] Stop: 03/12/19 08:59 Last Admin: 02/18/19 17:24 Dose: 100 mg Duloxetine HCl (Cymbalta) 60 mg PO DAILY [facility]; Protocol Stop: 04/16/19 13:59 Last Admin: 02/18/19 09:37 Dose: 60 mg Fluticasone Propionate (Flonase) 1 spr NS DAILY [facility] Stop: 03/12/19 08:59 Last Admin: 02/18/19 09:39 Dose: 1 spr Glucagon (Glucagen) 1 mg IM PRN PRN PRN Reason: BS below 70 Stop: 03/11/19 23:24 Guaifenesin/Dextromethorphan (Robitussin Dm) 10 ml PO TID [facility] Stop: 04/18/19 20:59 Last Admin: 02/18/19 17:24 Dose: Not Given Haloperidol Lactate (Haldol Concentrate 10mg/5ml Susp) 5 mg PO BID [facility]; Protocol Stop: 03/18/19 08:59 Last Admin: 02/18/19 17:24 Dose: 5 mg Hydralazine HCl (Apresoline) 10 mg PO BID CAL Stop: 03/12/19 08:59 Last Admin: 02/18/19 17:22 Dose: Not Given Ibuprofen (Motrin) 600 mg PO Q8H PRN PRN Reason: breakthrough pain Stop: 03/12/19 00:35 Last Admin: 02/17/19 11:20 Dose: 600 mg Insulin Glargine (Lantus Insulin) 26 units SUBQ HS CAL Stop: 03/12/19 20:59 Last Admin: 02/17/19 21:55 Dose: 26 units Insulin Human Lispro (Humalog Insulin Sliding Scale) 0 units SUBQ ACHS [facility]; Protocol Stop: 03/11/19 20:59 Last Admin: 02/18/19 17:23 Dose: Not Given Isosorbide Dinitrate (Isordil) 10 mg PO Q8HR [facility] Stop: 03/12/19 04:59 Last Admin: 02/18/19 17:24 Dose: Not Given Latanoprost (Xalatan 0.005% [facility]) 1 drop EACH EYE HS [facility] Stop: 03/12/19 20:59 Last Admin: 02/17/19 21:55 Dose: 1 drop Levothyroxine Sodium (Synthroid) 0.075 mg PO QDAC CAL Stop: 03/12/19 07:29 Last Admin: 02/18/19 06:39 Dose: 0.075 mg Loratadine (Claritin) 10 mg PO DAILY [facility] Stop: 03/12/19 08:59 Last Admin: 02/18/19 09:37 Dose: 10 mg Losartan Potassium (Cozaar) 50 mg PO DAILY [facility] Stop: 03/12/19 08:59 Last Admin: 02/18/19 17:25 Dose: Not Given Magnesium Hydroxide (Milk Of Magnesia) 30 ml PO HS PRN PRN Reason: Constipation Multivitamins/Vitamin C (Theragran) 1 tab PO DAILY [facility] Stop: 03/12/19 08:59 Last Admin: 02/18/19 09:36 Dose: 1 tab Naproxen (Naprosyn) 500 mg PO BIDWM [facility] Stop: 03/20/19 17:59 Last Admin: 02/18/19 17:22 Dose: 500 mg Nitroglycerin (Nitrostat) 0.4 mg SL Q5MIN PRN PRN Reason: CHEST PAIN Stop: 03/11/19 23:24 Last Admin: 02/12/19 06:52 Dose: 0.4 mg Oxycodone/Acetaminophen (Percocet 5/325mg Oral Tab) 1 tab PO Q4H PRN PRN Reason: severe pain (7-10) Stop: 04/16/19 11:01 Last Admin: 02/16/19 14:30 Dose: 1 tab Senna (Senna) 17.2 mg PO HS CAL Stop: 03/12/19 20:59 Last Admin: 02/17/19 21:55 Dose: 17.2 mg Sodium Phosphate (Fleet Enema) 135 ml RC DAILY PRN PRN Reason: Constipation Stop: 03/11/19 23:24 Vitamin B Complex/Vit C/Folic Acid (Vitamin B Complex W/Vitamin C) 1 tab PO DAILY CAL Stop: 03/12/19 08:59 Last Admin: 02/18/19 09:37 Dose: 1 tab Zolpidem Tartrate (Ambien) 5 mg PO HS PRN PRN Reason: Insomnia Stop: 04/16/19 10:58 Last Admin: 02/17/19 22:48 Dose: 5 mg General: alert HEENT: NC/AT, PERRLA, EOMI, anicteric sclerae, throat clear Neck: Supple, No JVD, No thyromegaly, +2 carotid pulse wo bruit, No LAD Lungs: CTAB Cardiovascular: RRR, Normal S1, Normal S2, without murmur Abdomen: soft, non-tender, non-distended Extremities: clear Neurological: no change Internal Medicine Assmt/Plan - Assessment Assessment: 1.DM. 2.HTN. 3.HYPOTHYROIDISM. 5.PSYCHOSIS - Plan Plan: CONTINUE ON CURRENT MEDICATION AND DIET. Nutritional Asmnt/Malnutr-PDOC - Dietary Evaluation Malnutrition Findings (Please click <Entered> for more info): Nutritional Asmnt/Malnutrition Start: 01/11/19 12: 41 Text: Status: Complete Freq: Protocol: Document 01/11/19 12:41 AXEL (Rec: 01/11/19 12:45 AXEL [email or web address]) Nutritional Asmnt/Malnutrition Patient General Information Nutritional Screening Consult Diagnosis PSYCHOSIS Pertinent Medical Hx/Surgical Hx HTN, DM, HYPOTHYROIDISM, PSYCHOSIS, DJD Subjective Information IA CONSULT: DM PT IS A 78 YEAR OLD FEMALE [facility] AD[facility] ON [facility] D/T AGGRESSIVE BEHAVIOR. PT WAS HERE RECENTLY, DISCHARGED ON . PER MEAL/NUTRITION ACTIVITY RECORD, PT TYPICALLY ATE 100% MEALS. HT: 59 WT: 310 LB (141 KG) ABW: 186 LB (84.66 KG) BMI: 45.78 (OBESE III) GI: WNL, NON-TENDER, LARGE, ROUND BM: NOT NOTED I/O: 240/NOT NOTED SKIN: SKIN BREAKDOWN TO BUTTOCKS AREA LUIS: NOT NOTED DIET ORDER: CCHO 45GM, PUREED ESTIMATED ENERGY NEEDS: (OBESE III, ABW) 6160-6077 KCALS (20-25 KCALS/ KG) 68-85 G PRO (0.8-1.0 G/KG) 1849-6642 ML (25-30 ML/KG) PT PO INTAKE: 100% SNACK PROVIDED. Current Diet Order/ Nutrition Support CCHO 45GM, PUREED Pertinent Medications MAALOX (PRN), ALBUTEROL (PRN), LIPITOR, COREG, COLACE, GLUCAGON (PRN), LANTUS, SYNTHROID, INS-SS, COZAAR, MOM (PRN), THEREGRAN, SENNA, FLEET ENEMA (PRN), VIT B COMLPEX WITH VIT C Pertinent Labs 01/10: NA 131, GLUCOSE 363 POC GLUCOSE (LAST 24 HOURS): 257, 250 Nutritional Hx/Data Height 1.75 m Height (Calculated Centimeters) 175.3 Current Weight (lbs) 140.614 kg Weight (Calculated Kilograms) 140.6 Weight (Calculated Grams) 992114.6 [place] Body Weight 145 % [place] Body Weight 214 Body Mass Index (BMI) 45.8 Weight Status Morbidly Obese GI Symptoms GI Symptoms None Last BM NOT NOTED Skin Integrity/Comment: SKIN BREAKDOWN TO BUTTOCKS AREA LUIS: NOT NOTED Current %PO Good (75-100%) Estimated Nutritional Goals BEE in Kcals: Adj wt of IBW Calories/Kcals/Kg 20-25 Kcals Calculated 9500-3106 Protein: Adj wt of IBW Protein g/k.8-1.0 Protein Calculated 68-85 Fluid: ml 3170-6549 ML (25-30 ML/KG) Nutritional Problem 1. Problem Problem ALTERED NUTRITION RELATED LABS Etiology R/T ENDOCRINE DYSFUNCTION Signs/Symptoms: AEB HX DM AND GLUCOSE 363 Malnutrition Related to Morbid Obesity Malnutrition related to morbid obesity Weight 200% of ideal wt Query Text:(Any 1 Criteria met) Malnutrition related to morbid obesity Yes Intervention/Recommendation Comments 1. CONTINUE WITH [facility] 45GM, PUREED DIET ORDERED. 2. CONTNIUE ANTIHYPERGLYCEMIC MEDICATION FOR GLUCOSE CONTROL PER MD ORDER. Expected Outcomes/Goals Expected Outcomes/Goals 1. PO INTAKE TO MEET 75% OF NUTRITIONAL NEEDS. 2. MONITOR PO INTAKE, WT, NUTRITION RELATED LABS AND SKIN INTEGRITY. 3. F/U LOW RISK IN 7 DAYS, 01/18
[2019-02-18] MEDS: Insulin Glargine 100 units/ml 10ml Vial SUBQ SCH (22:00)
[2019-02-18] MEDS: Atorvastatin Calcium 10 MG TAB PO SCH (22:00)
[2019-02-18] MEDS: APAP/Oxycodone 5/325mg Tab PO PRN (23:00)
--- NOTE | 2019-02-18 23:03 | Progress Notes ---
DATE: 02/18/2019 Case was discussed with staff of the patient, reviewed records. The patient continues to isolate staying in bed, continues to have poor insight, continues to be unable to make safe plan for self-care. Continues to have episodes of agitation, unpredictable, impulsive. No side effects with the medication, no sedation, no nausea and we will continue to work with the patient in group therapy, milieu therapy, and adjust medication as needed. [facility]# [id number]
[2019-02-19] MEDS: INSULIN LISPRO SLIDING SCALE 100 UNITS/ML UNIT SUBQ SCH ×4 (06:39→21:19)
[2019-02-19] MEDS: Levothyroxine 0.075 Mg Tab PO SCH (06:43)
[2019-02-19] MEDS: Guaifenesin DM 10 ML UDC PO SCH ×3 (09:04→21:18)
[2019-02-19] MEDS: Haldol Oral Sol.(concentrate) 10 mg/5 mL Udc PO SCH ×2 (09:04→17:30)
[2019-02-19] MEDS: Fluticasone Propionate Nasal 1 SPR SPR NS SCH (09:04)
[2019-02-19] MEDS: Vitamin B Complex w/Vitamin C Tab PO SCH (09:06)
[2019-02-19] MEDS: Multivitamin Tab PO SCH (09:06)
--- NOTE | 2019-02-19 14:18 | Progress Notes ---
DATE: 02/19/2019 Case was discussed with staff of the patient, reviewed records. The patient continues to be unpredictable, impulsive, demanding at times. In general, she is responding better to redirection. Continues to need self-care with her ADLs and continues to have episodes of agitation. Continues to have poor insight. No side effects with the medication, no sedation, no nausea, no extrapyramidal symptoms. We will continue to work with the patient in group therapy, milieu therapy, and adjust the medication as needed. JOB# [id number]
--- NOTE | 2019-02-19 20:35 | Internal Medicine Prog Note ---
Internal Medicine Subjective - Subjective Service Date: 02/19/19 Patient seen and examined:: without staff (she feels well) Patient is:: awake, verbal, in bed, talking Per staff patient has:: no adverse event Internal Medicine Objective - Results Result Diagrams: 01/10/19 15:10 01/10/19 15:10 Recent Labs: Laboratory Last Values WBC 8.4 Th/cmm (4.8-10.8) 01/10/19 15:10 RBC 5.16 Mil/cmm (3.80-5.20) 01/10/19 15:10 Hgb 14.9 gm/dL (12-16) 01/10/19 15:10 Hct 44.3 % (41.0-60) 01/10/19 15:10 MCV 85.8 fl (81-100) 01/10/19 15:10 MCH 28.9 pg (27.0-31.0) 01/10/19 15:10 MCHC Differential 33.7 pg (28.0-36.0) 01/10/19 15:10 RDW 12.1 % (11.5-20.0) 01/10/19 15:10 Plt Count 291 Th/cmm (150-400) 01/10/19 15:10 MPV 7.3 fl 01/10/19 15:10 Neutrophils % 59.5 % (40.0-80.0) 01/10/19 15:10 Lymphocytes % 31.2 % (20.0-50.0) 01/10/19 15:10 Monocytes % 5.0 % (2.0-10.0) 01/10/19 15:10 Eosinophils % 4.3 % (0.0-5.0) 01/10/19 15:10 Basophils % 0.0 % (0.0-2.0) 01/10/19 15:10 Sodium 131 mEq/L (136-145) L 01/10/19 15:10 Potassium 4.2 mEq/L (3.5-5.1) 01/10/19 15:10 Chloride 96 mEq/L (98-107) L 01/10/19 15:10 Carbon Dioxide 23.9 mEq/L (21.0-31.0) 01/10/19 15:10 Anion Gap 15.3 (7.0-16.0) 01/10/19 15:10 BUN 18 mg/dL (7-25) 01/10/19 15:10 Creatinine 1.0 mg/dL (0.6-1.2) 01/10/19 15:10 Est GFR ( Amer) TNP 01/10/19 15:10 Est GFR (Non-Af Amer) TNP 01/10/19 15:10 BUN/Creatinine Ratio 18.0 01/10/19 15:10 Glucose 363 mg/dL (70-105) H 01/10/19 15:10 POC Glucose 207 MG/DL (70 - 105) H 02/18/19 11:47 Calcium 9.6 mg/dL (8.6-10.3) 01/10/19 15:10 Total Bilirubin 0.5 mg/dL (0.3-1.0) 01/10/19 15:10 AST 13 U/L (13-39) 01/10/19 15:10 ALT 14 U/L (7-52) 01/10/19 15:10 Alkaline Phosphatase 66 U/L (34-104) 01/10/19 15:10 Troponin I 0.04 ng/mL (0.01-0.05) 01/19/19 22:30 Total Protein 7.1 gm/dL (6.0-8.3) 01/10/19 15:10 Albumin 3.7 gm/dL (3.7-5.3) 01/10/19 15:10 Globulin 3.4 gm/dL 01/10/19 15:10 Albumin/Globulin Ratio 1.1 (1.0-1.8) 01/10/19 15:10 Triglycerides 417 mg/dL (<150) H 01/10/19 15:10 Cholesterol 188 mg/dL (<200) 01/10/19 15:10 LDL Cholesterol Direct 109 mg/dL (75-193) 01/10/19 15:10 HDL Cholesterol 27 mg/dL (23-92) 01/10/19 15:10 TSH 1.76 uIU/ml (0.34-5.60) 01/10/19 15:10 Urine Source CLEAN C 01/14/19 17:00 Urine Color YELLOW 01/14/19 17:00 Urine Clarity CLOUDY (CLEAR) H 01/14/19 17:00 Urine pH 6.5 (4.6 - 8.0) 01/14/19 17:00 Ur Specific [place] <= 1.005 (1.005-1.030) 01/14/19 17:00 Urine Protein NEGATIVE mg/dL (NEGATIVE) 01/14/19 17:00 Urine Glucose (UA) 100 mg/dL (NEGATIVE) H 01/14/19 17:00 Urine Ketones NEGATIVE mg/dL (NEGATIVE) 01/14/19 17:00 Urine Blood SMALL (NEGATIVE) H 01/14/19 17:00 Urine Nitrate NEGATIVE (NEGATIVE) 01/14/19 17:00 Urine Bilirubin NEGATIVE (NEGATIVE) 01/14/19 17:00 Urine Urobilinogen 0.2 E.U./dL (0.2 - 1.0) 01/14/19 17:00 Ur Leukocyte Esterase MODERATE (NEGATIVE) H 01/14/19 17:00 Urine RBC 2-5 /hpf (0-5) 01/14/19 17:00 Urine WBC 6-10 /hpf (0-5) H 01/14/19 17:00 Ur Epithelial Cells FEW /lpf (FEW) 01/14/19 17:00 Urine Bacteria MANY /hpf (NONE SEEN) H 01/14/19 17:00 RPR NONREACTIVE (NONREACTIVE) 01/10/19 15:10 - Physical Exam Vitals and I&O: Vital Signs Temp 98.1 F 02/19/19 20:12 Pulse 69 02/19/19 20:12 Resp 20 02/19/19 20:12 BP 131/70 02/19/19 20:12 Pulse Ox 96 02/19/19 20:12 Intake & Output 02/19/19 02/19/19 02/20/19 06:59 18:59 06:59 Intake Total 480 900 240 Output Total 1 1 Balance 479 900 239 Intake: Oral 480 900 240 Output: Urine/Stool Mix 1 1 Other: # Voids 3 3 1 # Bowel Movements 1 0 Stool Characteristics Soft Active Medications: Current Medications Acetaminophen (Tylenol Extra Strength) 500 mg PO Q4H PRN PRN Reason: Pain or Fever >101 Stop: 03/12/19 00:41 Last Admin: 02/09/19 18:22 Dose: 500 mg Al Hydrox/Mg Hydrox/Simethicone (Maalox) 30 ml PO Q4HR PRN PRN Reason: GI DISTRESS Stop: 03/11/19 19:56 Albuterol/Ipratropium (Duoneb Neb) 3 ml HHN Q4H PRN PRN Reason: Wheezing Stop: 03/12/19 00:48 Last Admin: 02/18/19 19:24 Dose: 3 ml Aripiprazole (Abilify) 30 mg PO DAILY [facility]; Protocol Stop: 03/17/19 08:59 Last Admin: 02/19/19 09:05 Dose: 30 mg Aspirin (Ecotrin) 81 mg PO DAILY [facility] Stop: 03/12/19 08:59 Last Admin: 02/19/19 09:06 Dose: 81 mg Atorvastatin Calcium (Lipitor) 20 mg PO HS [facility]; Protocol Stop: 03/12/19 20:59 Last Admin: 02/18/19 22:00 Dose: 20 mg Brimonidine Tartrate (Alphagan 0.1% Ophth Soln) 1 drop EACH EYE TID [facility] Stop: 03/12/19 08:59 Last Admin: 02/19/19 14:49 Dose: Not Given Carvedilol (Coreg) 12.5 mg PO BID [facility] Stop: 03/21/19 08:59 Last Admin: 02/19/19 17:32 Dose: 12.5 mg Docusate Sodium (Colace) 100 mg PO BID [facility] Stop: 03/12/19 08:59 Last Admin: 02/19/19 17:31 Dose: 100 mg Duloxetine HCl (Cymbalta) 60 mg PO DAILY [facility]; Protocol Stop: 04/16/19 13:59 Last Admin: 02/19/19 09:05 Dose: 60 mg Fluticasone Propionate (Flonase) 1 spr NS DAILY [facility] Stop: 03/12/19 08:59 Last Admin: 02/19/19 09:04 Dose: 1 spr Glucagon (Glucagen) 1 mg IM PRN PRN PRN Reason: BS below 70 Stop: 03/11/19 23:24 Guaifenesin/Dextromethorphan (Robitussin Dm) 10 ml PO TID [facility] Stop: 04/18/19 20:59 Last Admin: 02/19/19 14:49 Dose: Not Given Haloperidol Lactate (Haldol Concentrate 10mg/5ml Susp) 5 mg PO BID [facility]; Protocol Stop: 03/18/19 08:59 Last Admin: 02/19/19 17:30 Dose: 5 mg Hydralazine HCl (Apresoline) 10 mg PO BID [facility] Stop: 03/12/19 08:59 Last Admin: 02/19/19 17:31 Dose: 10 mg Ibuprofen (Motrin) 600 mg PO Q8H PRN PRN Reason: breakthrough pain Stop: 03/12/19 00:35 Last Admin: 02/17/19 11:20 Dose: 600 mg Insulin Glargine (Lantus Insulin) 26 units SUBQ HS CAL Stop: 03/12/19 20:59 Last Admin: 02/18/19 22:00 Dose: 26 units Insulin Human Lispro (Humalog Insulin Sliding Scale) 0 units SUBQ [facility]; Protocol Stop: 03/11/19 20:59 Last Admin: 02/19/19 17:32 Dose: Not Given Isosorbide Dinitrate (Isordil) 10 mg PO Q8HR CAL Stop: 03/12/19 04:59 Last Admin: 02/19/19 14:49 Dose: Not Given Latanoprost (Xalatan 0.005% [facility]) 1 drop EACH EYE HS [facility] Stop: 03/12/19 20:59 Last Admin: 02/18/19 22:00 Dose: 1 drop Levothyroxine Sodium (Synthroid) 0.075 mg PO QDAC [facility] Stop: 03/12/19 07:29 Last Admin: 02/19/19 06:43 Dose: 0.075 mg Loratadine (Claritin) 10 mg PO DAILY [facility] Stop: 03/12/19 08:59 Last Admin: 02/19/19 09:07 Dose: 10 mg Losartan Potassium (Cozaar) 50 mg PO DAILY [facility] Stop: 03/12/19 08:59 Last Admin: 02/19/19 09:06 Dose: 50 mg Magnesium Hydroxide (Milk Of Magnesia) 30 ml PO HS PRN PRN Reason: Constipation Multivitamins/Vitamin C (Theragran) 1 tab PO DAILY [facility] Stop: 03/12/19 08:59 Last Admin: 02/19/19 09:06 Dose: 1 tab Naproxen (Naprosyn) 500 mg PO BIDWM CAL Stop: 03/20/19 17:59 Last Admin: 02/19/19 17:31 Dose: 500 mg Nitroglycerin (Nitrostat) 0.4 mg SL Q5MIN PRN PRN Reason: CHEST PAIN Stop: 03/11/19 23:24 Last Admin: 02/12/19 06:52 Dose: 0.4 mg Oxycodone/Acetaminophen (Percocet 5/325mg Oral Tab) 1 tab PO Q4H PRN PRN Reason: severe pain (7-10) Stop: 04/16/19 11:01 Last Admin: 02/18/19 23:00 Dose: 1 tab Senna (Senna) 17.2 mg PO HS CAL Stop: 03/12/19 20:59 Last Admin: 02/18/19 22:00 Dose: 17.2 mg Sodium Phosphate (Fleet Enema) 135 ml RC DAILY PRN PRN Reason: Constipation Stop: 03/11/19 23:24 Vitamin B Complex/Vit C/Folic Acid (Vitamin B Complex W/Vitamin C) 1 tab PO DAILY [facility] Stop: 03/12/19 08:59 Last Admin: 02/19/19 09:06 Dose: 1 tab Zolpidem Tartrate (Ambien) 5 mg PO HS PRN PRN Reason: Insomnia Stop: 04/16/19 10:58 Last Admin: 02/18/19 22:20 Dose: 5 mg General: alert HEENT: NC/AT, PERRLA, EOMI, anicteric sclerae, throat clear Neck: Supple, No JVD, No thyromegaly, +2 carotid pulse wo bruit, No LAD Lungs: CTAB Cardiovascular: RRR, Normal S1, Normal S2, without murmur Abdomen: soft, non-tender, non-distended Extremities: clear Neurological: no change Internal Medicine Assmt/Plan - Assessment Assessment: 1.DM. 2.HTN. 3.HYPOTHYROIDISM. 5.PSYCHOSIS - Plan Plan: CONTINUE ON CURRENT MEDICATION AND DIET. Nutritional Asmnt/Malnutr-PDOC - Dietary Evaluation Malnutrition Findings (Please click <Entered> for more info): Nutritional Asmnt/Malnutrition Start: 01/11/19 12: 41 Text: Status: Complete Freq: Protocol: Document 01/11/19 12:41 AXEL (Rec: 01/11/19 12:45 [email or web address] [id number]) Nutritional Asmnt/Malnutrition Patient General Information Nutritional Screening Consult Diagnosis PSYCHOSIS Pertinent Medical Hx/Surgical Hx HTN, DM, HYPOTHYROIDISM, PSYCHOSIS, DJD Subjective Information IA CONSULT: DM PT IS A 78 YEAR OLD FEMALE [facility] D/T AGGRESSIVE BEHAVIOR. PT WAS HERE RECENTLY, DISCHARGED ON . PER MEAL/NUTRITION ACTIVITY RECORD, PT TYPICALLY ATE 100% MEALS. HT: 59 WT: 310 LB (141 KG) ABW: 186 LB (84.66 KG) BMI: 45.78 (OBESE III) GI: WNL, NON-TENDER, LARGE, ROUND BM: NOT NOTED I/O: 240/NOT NOTED SKIN: SKIN BREAKDOWN TO BUTTOCKS AREA LUIS: NOT NOTED DIET ORDER: CCHO 45GM, PUREED ESTIMATED ENERGY NEEDS: (OBESE III, ABW) 4117-6594 KCALS (20-25 KCALS/ KG) 68-85 G PRO (0.8-1.0 G/KG) 0732-6511 ML (25-30 ML/KG) PT PO INTAKE: 100% SNACK PROVIDED. Current Diet Order/ Nutrition Support CCHO 45GM, PUREED Pertinent Medications MAALOX (PRN), ALBUTEROL (PRN), LIPITOR, COREG, COLACE, GLUCAGON (PRN), LANTUS, SYNTHROID, INS-SS, COZAAR, MOM (PRN), THEREGRAN, SENNA, FLEET ENEMA (PRN), VIT B COMLPEX WITH VIT C Pertinent Labs 01/10: NA 131, GLUCOSE 363 POC GLUCOSE (LAST 24 HOURS): 257, 250 Nutritional Hx/Data Height 1.75 m Height (Calculated Centimeters) 175.3 Current Weight (lbs) 140.614 kg Weight (Calculated Kilograms) 140.6 Weight (Calculated Grams) 763529.6 Ophelia Body Weight 145 % Ophelia Body Weight 214 Body Mass Index (BMI) 45.8 Weight Status Morbidly Obese GI Symptoms GI Symptoms None Last BM NOT NOTED Skin Integrity/Comment: SKIN BREAKDOWN TO BUTTOCKS AREA LUIS: NOT NOTED Current %PO Good (75-100%) Estimated Nutritional Goals BEE in Kcals: Adj wt of IBW Calories/Kcals/Kg 20-25 Kcals Calculated 3907-1276 Protein: Adj wt of IBW Protein g/k.8-1.0 Protein Calculated 68-85 Fluid: ml 0739-7121 ML (25-30 ML/KG) Nutritional Problem 1. Problem Problem ALTERED NUTRITION RELATED LABS Etiology R/T ENDOCRINE DYSFUNCTION Signs/Symptoms: AEB HX DM AND GLUCOSE 363 Malnutrition Related to Morbid Obesity Malnutrition related to morbid obesity Weight 200% of ideal wt Query Text:(Any 1 Criteria met) Malnutrition related to morbid obesity Yes Intervention/Recommendation Comments [facility]. [facility], PUREED DIET ORDERED. 2. CONTNIUE ANTIHYPERGLYCEMIC MEDICATION FOR GLUCOSE CONTROL PER MD ORDER. Expected Outcomes/Goals Expected Outcomes/Goals 1. PO INTAKE TO MEET 75% OF NUTRITIONAL NEEDS. 2. MONITOR PO INTAKE, WT, NUTRITION RELATED LABS AND SKIN INTEGRITY. 3. F/U LOW RISK IN 7 DAYS, 01/18
[2019-02-19] MEDS: Atorvastatin Calcium 10 MG TAB PO SCH (21:18)
[2019-02-19] MEDS: Insulin Glargine 100 units/ml 10ml Vial SUBQ SCH (21:19)
[2019-02-20] MEDS: Levothyroxine 0.075 Mg Tab PO SCH (06:51)
[2019-02-20] MEDS: INSULIN LISPRO SLIDING SCALE 100 UNITS/ML UNIT SUBQ SCH ×4 (06:51→21:12)
[2019-02-20] MEDS: Haldol Oral Sol.(concentrate) 10 mg/5 mL Udc PO SCH ×2 (08:25→16:50)
[2019-02-20] MEDS: Fluticasone Propionate Nasal 1 SPR SPR NS SCH (09:10)
[2019-02-20] MEDS: Vitamin B Complex w/Vitamin C Tab PO SCH (09:11)
[2019-02-20] MEDS: APAP/Oxycodone 5/325mg Tab PO PRN (09:11)
[2019-02-20] MEDS: Multivitamin Tab PO SCH (09:11)
[2019-02-20] MEDS: Guaifenesin DM 10 ML UDC PO SCH ×3 (11:48→21:11)
--- NOTE | 2019-02-20 13:04 | Progress Notes ---
DATE: 02/20/2019 PSYCHIATRIC PROGRESS NOTE SUBJECTIVE: Chart reviewed and the patient interviewed. Also discussed the patient's condition with the staff and reviewed records and labs. The patient is still in a depressed mood because of her long hospital stay. The patient also is anxious and she is still withdrawn and guarded. On the other hand, decreased in behavioral problems, and the patient is calm and cooperative and compliant with taking her medications. ASSESSMENT: The patient is still depressed and anxious and waiting for placement. TREATMENT PLAN: Continue to monitor behavior and condition closely. Also, continue working on discharge plans and placement issue. JOB# [id number]
[2019-02-20] MEDS: Atorvastatin Calcium 10 MG TAB PO SCH (21:11)
[2019-02-20] MEDS: Insulin Glargine 100 units/ml 10ml Vial SUBQ SCH (21:15)
--- NOTE | 2019-02-20 21:17 | Internal Medicine Prog Note ---
Internal Medicine Subjective - Subjective Service Date: 02/20/19 Patient seen and examined:: with staff (SHE STILL COUGHING) Patient is:: awake, verbal, in bed, talking Per staff patient has:: no adverse event Internal Medicine Objective - Results Result Diagrams: 01/10/19 15:10 01/10/19 15:10 Recent Labs: Laboratory Last Values WBC 8.4 Th/cmm (4.8-10.8) 01/10/19 15:10 RBC 5.16 Mil/cmm (3.80-5.20) 01/10/19 15:10 Hgb 14.9 gm/dL (12-16) 01/10/19 15:10 Hct 44.3 % (41.0-60) 01/10/19 15:10 MCV 85.8 fl (81-100) 01/10/19 15:10 MCH 28.9 pg (27.0-31.0) 01/10/19 15:10 MCHC Differential 33.7 pg (28.0-36.0) 01/10/19 15:10 RDW 12.1 % (11.5-20.0) 01/10/19 15:10 Plt Count 291 Th/cmm (150-400) 01/10/19 15:10 MPV 7.3 fl 01/10/19 15:10 Neutrophils % 59.5 % (40.0-80.0) 01/10/19 15:10 Lymphocytes % 31.2 % (20.0-50.0) 01/10/19 15:10 Monocytes % 5.0 % (2.0-10.0) 01/10/19 15:10 Eosinophils % 4.3 % (0.0-5.0) 01/10/19 15:10 Basophils % 0.0 % (0.0-2.0) 01/10/19 15:10 Sodium 131 mEq/L (136-145) L 01/10/19 15:10 Potassium 4.2 mEq/L (3.5-5.1) 01/10/19 15:10 Chloride 96 mEq/L (98-107) L 01/10/19 15:10 Carbon Dioxide 23.9 mEq/L (21.0-31.0) 01/10/19 15:10 Anion Gap 15.3 (7.0-16.0) 01/10/19 15:10 BUN 18 mg/dL (7-25) 01/10/19 15:10 Creatinine 1.0 mg/dL (0.6-1.2) 01/10/19 15:10 Est GFR ( Amer) TNP 01/10/19 15:10 Est GFR (Non-Af Amer) TNP 01/10/19 15:10 BUN/Creatinine Ratio 18.0 01/10/19 15:10 Glucose 363 mg/dL (70-105) H 01/10/19 15:10 POC Glucose 207 MG/DL (70 - 105) H 02/18/19 11:47 Calcium 9.6 mg/dL (8.6-10.3) 01/10/19 15:10 Total Bilirubin 0.5 mg/dL (0.3-1.0) 01/10/19 15:10 AST 13 U/L (13-39) 01/10/19 15:10 ALT 14 U/L (7-52) 01/10/19 15:10 Alkaline Phosphatase 66 U/L (34-104) 01/10/19 15:10 Troponin I 0.04 ng/mL (0.01-0.05) 01/19/19 22:30 Total Protein 7.1 gm/dL (6.0-8.3) 01/10/19 15:10 Albumin 3.7 gm/dL (3.7-5.3) 01/10/19 15:10 Globulin 3.4 gm/dL 01/10/19 15:10 Albumin/Globulin Ratio 1.1 (1.0-1.8) 01/10/19 15:10 Triglycerides 417 mg/dL (<150) H 01/10/19 15:10 Cholesterol 188 mg/dL (<200) 01/10/19 15:10 LDL Cholesterol Direct 109 mg/dL (75-193) 01/10/19 15:10 HDL Cholesterol 27 mg/dL (23-92) 01/10/19 15:10 TSH 1.76 uIU/ml (0.34-5.60) 01/10/19 15:10 Urine Source CLEAN C 01/14/19 17:00 Urine Color YELLOW 01/14/19 17:00 Urine Clarity CLOUDY (CLEAR) H 01/14/19 17:00 Urine pH 6.5 (4.6 - 8.0) 01/14/19 17:00 Ur Specific [place] <= 1.005 (1.005-1.030) 01/14/19 17:00 Urine Protein NEGATIVE mg/dL (NEGATIVE) 01/14/19 17:00 Urine Glucose (UA) 100 mg/dL (NEGATIVE) H 01/14/19 17:00 Urine Ketones NEGATIVE mg/dL (NEGATIVE) 01/14/19 17:00 Urine Blood SMALL (NEGATIVE) H 01/14/19 17:00 Urine Nitrate NEGATIVE (NEGATIVE) 01/14/19 17:00 Urine Bilirubin NEGATIVE (NEGATIVE) 01/14/19 17:00 Urine Urobilinogen 0.2 E.U./dL (0.2 - 1.0) 01/14/19 17:00 Ur Leukocyte Esterase MODERATE (NEGATIVE) H 01/14/19 17:00 Urine RBC 2-5 /hpf (0-5) 01/14/19 17:00 Urine WBC 6-10 /hpf (0-5) H 01/14/19 17:00 Ur Epithelial Cells FEW /lpf (FEW) 01/14/19 17:00 Urine Bacteria MANY /hpf (NONE SEEN) H 01/14/19 17:00 RPR NONREACTIVE (NONREACTIVE) 01/10/19 15:10 - Physical Exam Vitals and I&O: Vital Signs Temp 98.4 F 02/20/19 20:36 Pulse 58 02/20/19 20:36 Resp 20 02/20/19 20:36 BP 129/65 02/20/19 20:36 Pulse Ox 94 02/20/19 20:36 Intake & Output 02/20/19 02/20/19 02/21/19 06:59 18:59 06:59 Intake Total 240 900 240 Output Total 1 Balance 239 900 240 Intake: Oral 240 900 240 Output: Urine/Stool Mix 1 Other: # Voids 3 3 2 # Bowel Movements 0 0 1 Stool Characteristics Soft Soft Active Medications: Current Medications Acetaminophen (Tylenol Extra Strength) 500 mg PO Q4H PRN PRN Reason: Pain or Fever >101 Stop: 03/12/19 00:41 Last Admin: 02/09/19 18:22 Dose: 500 mg Al Hydrox/Mg Hydrox/Simethicone (Maalox) 30 ml PO Q4HR PRN PRN Reason: GI DISTRESS Stop: 03/11/19 19:56 Albuterol/Ipratropium (Duoneb Neb) 3 ml HHN Q4H PRN PRN Reason: Wheezing Stop: 03/12/19 00:48 Last Admin: 02/18/19 19:24 Dose: 3 ml Aripiprazole (Abilify) 30 mg PO DAILY [facility]; Protocol Stop: 03/17/19 08:59 Last Admin: 02/20/19 08:22 Dose: 30 mg Aspirin (Ecotrin) 81 mg PO DAILY [facility] Stop: 03/12/19 08:59 Last Admin: 02/20/19 08:22 Dose: 81 mg Atorvastatin Calcium (Lipitor) 20 mg PO HS [facility]; Protocol Stop: 03/12/19 20:59 Last Admin: 02/19/19 21:18 Dose: Not Given Brimonidine Tartrate (Alphagan 0.1% Oph Soln) 1 drop EACH EYE TID [facility] Stop: 03/12/19 08:59 Last Admin: 02/20/19 14:20 Dose: 1 drop Carvedilol (Coreg) 12.5 mg PO BID [facility] Stop: 03/21/19 08:59 Last Admin: 02/20/19 16:50 Dose: 12.5 mg Docusate Sodium (Colace) 100 mg PO BID [facility] Stop: 03/12/19 08:59 Last Admin: 02/20/19 16:50 Dose: 100 mg Duloxetine HCl (Cymbalta) 60 mg PO DAILY [facility]; Protocol Stop: 04/16/19 13:59 Last Admin: 02/20/19 09:11 Dose: 60 mg Fluticasone Propionate (Flonase) 1 spr NS DAILY [facility] Stop: 03/12/19 08:59 Last Admin: 02/20/19 09:10 Dose: 1 spr Glucagon (Glucagen) 1 mg IM PRN PRN PRN Reason: BS below 70 Stop: 03/11/19 23:24 Guaifenesin/Dextromethorphan (Robitussin Dm) 10 ml PO TID [facility] Stop: 04/18/19 20:59 Last Admin: 02/20/19 14:20 Dose: 10 ml Haloperidol Lactate (Haldol Concentrate 10mg/5ml Susp) 5 mg PO BID [facility]; Protocol Stop: 03/18/19 08:59 Last Admin: 02/20/19 16:50 Dose: 5 mg Hydralazine HCl (Apresoline) 10 mg PO BID [facility] Stop: 03/12/19 08:59 Last Admin: 02/20/19 16:51 Dose: 10 mg Ibuprofen (Motrin) 600 mg PO Q8H PRN PRN Reason: breakthrough pain Stop: 03/12/19 00:35 Last Admin: 02/20/19 16:51 Dose: 600 mg Insulin Glargine (Lantus Insulin) 26 units SUBQ HS CAL Stop: 03/12/19 20:59 Last Admin: 02/19/19 21:19 Dose: Not Given Insulin Human Lispro (Humalog Insulin Sliding Scale) 0 units SUBQ [facility]; Protocol Stop: 03/11/19 20:59 Last Admin: 02/20/19 17:04 Dose: Not Given Isosorbide Dinitrate (Isordil) 10 mg PO Q8HR CLA Stop: 03/12/19 04:59 Last Admin: 02/20/19 14:19 Dose: 10 mg Latanoprost (Xalatan 0.005% Oph Soln) 1 drop EACH EYE HS [facility] Stop: 03/12/19 20:59 Last Admin: 02/19/19 21:20 Dose: Not Given Levothyroxine Sodium (Synthroid) 0.075 mg PO QDAC [facility] Stop: 03/12/19 07:29 Last Admin: 02/20/19 06:51 Dose: 0.075 mg Loratadine (Claritin) 10 mg PO DAILY [facility] Stop: 03/12/19 08:59 Last Admin: 02/20/19 08:25 Dose: 10 mg Losartan Potassium (Cozaar) 50 mg PO DAILY [facility] Stop: 03/12/19 08:59 Last Admin: 02/20/19 08:23 Dose: 50 mg Magnesium Hydroxide (Milk Of Magnesia) 30 ml PO HS PRN PRN Reason: Constipation Multivitamins/Vitamin C (Theragran) 1 tab PO DAILY [facility] Stop: 03/12/19 08:59 Last Admin: 02/20/19 09:11 Dose: 1 tab Naproxen (Naprosyn) 500 mg PO BIDWM CAL Stop: 03/20/19 17:59 Last Admin: 02/20/19 08:30 Dose: Not Given Nitroglycerin (Nitrostat) 0.4 mg SL Q5MIN PRN PRN Reason: CHEST PAIN Stop: 03/11/19 23:24 Last Admin: 02/12/19 06:52 Dose: 0.4 mg Oxycodone/Acetaminophen (Percocet 5/325mg Oral Tab) 1 tab PO Q4H PRN PRN Reason: severe pain (7-10) Stop: 04/16/19 11:01 Last Admin: 02/20/19 09:11 Dose: 1 tab Senna (Senna) 17.2 mg PO HS CAL Stop: 03/12/19 20:59 Last Admin: 02/19/19 21:20 Dose: Not Given Sodium Phosphate (Fleet Enema) 135 ml RC DAILY PRN PRN Reason: Constipation Stop: 03/11/19 23:24 Vitamin B Complex/Vit C/Folic Acid (Vitamin B Complex W/Vitamin C) 1 tab PO DAILY [facility] Stop: 03/12/19 08:59 Last Admin: 02/20/19 09:11 Dose: 1 tab Zolpidem Tartrate (Ambien) 5 mg PO HS PRN PRN Reason: Insomnia Stop: 04/16/19 10:58 Last Admin: 02/18/19 22:20 Dose: 5 mg General: alert HEENT: NC/AT, PERRLA, EOMI, anicteric sclerae, throat clear Neck: Supple, No JVD, No thyromegaly, +2 carotid pulse wo bruit, No LAD Lungs: CTAB Cardiovascular: RRR, Normal S1, Normal S2, without murmur Abdomen: soft, non-tender, non-distended Extremities: clear Neurological: no change Internal Medicine Assmt/Plan - Assessment Assessment: 1.DM. 2.HTN. 3.HYPOTHYROIDISM. 5.PSYCHOSIS 5.COUGHING - Plan Plan: CONTINUE ON CURRENT MEDICATION AND DIET.ROBITUSSIN 10 CC PO TID. Nutritional Asmnt/Malnutr-PDOC - Dietary Evaluation Malnutrition Findings (Please click <Entered> for more info): Nutritional Asmnt/Malnutrition Start: 01/11/19 12: 41 Text: Status: Complete Freq: Protocol: Document 01/11/19 12:41 AXEL (Rec: 01/11/19 12:45 [email or web address] [email or web address]) Nutritional Asmnt/Malnutrition Patient General Information Nutritional Screening Consult Diagnosis PSYCHOSIS Pertinent Medical Hx/Surgical Hx HTN, DM, HYPOTHYROIDISM, PSYCHOSIS, DJD Subjective Information IA CONSULT: DM PT IS A 78 YEAR OLD FEMALE [facility] AD[facility] ON 01/10 D/T AGGRESSIVE BEHAVIOR. PT WAS HERE RECENTLY, DISCHARGED ON . PER MEAL/NUTRITION ACTIVITY RECORD, PT TYPICALLY ATE 100% MEALS. HT: 59 WT: 310 LB (141 KG) ABW: 186 LB (84.66 KG) BMI: 45.78 (OBESE III) GI: WNL, NON-TENDER, LARGE, ROUND BM: NOT NOTED I/O: 240/NOT NOTED SKIN: SKIN BREAKDOWN TO BUTTOCKS AREA LUIS: NOT NOTED DIET ORDER: CCHO 45GM, PUREED ESTIMATED ENERGY NEEDS: (OBESE III, ABW) 2568-3954 KCALS (20-25 KCALS/ KG) 68-85 G PRO (0.8-1.0 G/KG) 2934-2497 ML (25-30 ML/KG) PT PO INTAKE: 100% SNACK PROVIDED. Current Diet Order/ Nutrition Support CCHO 45GM, PUREED Pertinent Medications MAALOX (PRN), ALBUTEROL (PRN), LIPITOR, COREG, COLACE, GLUCAGON (PRN), LANTUS, SYNTHROID, INS-SS, COZAAR, MOM (PRN), THEREGRAN, SENNA, FLEET ENEMA (PRN), VIT B COMLPEX WITH VIT C Pertinent Labs 01/10: NA 131, GLUCOSE 363 POC GLUCOSE (LAST 24 HOURS): 257, 250 Nutritional Hx/Data Height 1.75 m Height (Calculated Centimeters) 175.3 Current Weight (lbs) 140.614 kg Weight (Calculated Kilograms) 140.6 Weight (Calculated Grams) 005364.6 [place] Body Weight 145 % [place] Body Weight 214 Body Mass Index (BMI) 45.8 Weight Status Morbidly Obese GI Symptoms GI Symptoms None Last BM NOT NOTED Skin Integrity/Comment: SKIN BREAKDOWN TO BUTTOCKS AREA LUIS: NOT NOTED Current %PO Good (75-100%) Estimated Nutritional Goals BEE in Kcals: Adj wt of IBW Calories/Kcals/Kg 20-25 Kcals Calculated 0564-3837 Protein: Adj wt of IBW Protein g/k.8-1.0 Protein Calculated 68-85 Fluid: ml 2170-4801 ML (25-30 ML/KG) Nutritional Problem 1. Problem Problem ALTERED NUTRITION RELATED LABS Etiology R/T ENDOCRINE DYSFUNCTION Signs/Symptoms: AEB HX DM AND GLUCOSE 363 Malnutrition Related to Morbid Obesity Malnutrition related to morbid obesity Weight 200% of ideal wt Query Text:(Any 1 Criteria met) Malnutrition related to morbid obesity Yes Intervention/Recommendation Comments 1. CONTINUE WITH [facility] 45GM, PUREED DIET ORDERED. 2. CONTNIUE ANTIHYPERGLYCEMIC MEDICATION FOR GLUCOSE CONTROL PER MD ORDER. Expected Outcomes/Goals Expected Outcomes/Goals 1. PO INTAKE TO MEET 75% OF NUTRITIONAL NEEDS. 2. MONITOR PO INTAKE, WT, NUTRITION RELATED LABS AND SKIN INTEGRITY. 3. F/U LOW RISK IN 7 DAYS, 01/18
[2019-02-21] MEDS: INSULIN LISPRO SLIDING SCALE 100 UNITS/ML UNIT SUBQ SCH ×4 (06:41→21:41)
[2019-02-21] MEDS: Levothyroxine 0.075 Mg Tab PO SCH (06:41)
[2019-02-21] MEDS: Guaifenesin DM 10 ML UDC PO SCH ×3 (08:57→21:40)
[2019-02-21] MEDS: Haldol Oral Sol.(concentrate) 10 mg/5 mL Udc PO SCH ×3 (08:57→17:35)
[2019-02-21] MEDS: Vitamin B Complex w/Vitamin C Tab PO SCH (08:59)
[2019-02-21] MEDS: Multivitamin Tab PO SCH (08:59)
[2019-02-21] MEDS: Fluticasone Propionate Nasal 1 SPR SPR NS SCH (09:00)
[2019-02-21] MEDS: APAP/Oxycodone 5/325mg Tab PO PRN ×2 (09:00→17:10)
--- NOTE | 2019-02-21 10:26 | Diagnostic Imaging Report ---
Portable chest x-ray HISTORY: Cough The heart is enlarged. Atherosclerotic calcination seen in the aorta. Poor detail of the left lower lobe due to the patient's overlying arm. No obvious focal pulmonary parenchymal processes. IMPRESSION: 1. Limited exam as noted above 2. Cardiomegaly 3. No obvious focal pulmonary processes
--- NOTE | 2019-02-21 18:02 | Internal Medicine Prog Note ---
Internal Medicine Subjective - Subjective Service Date: 02/21/19 Patient seen and examined:: with staff (SHE FEELS BETTER,LESS COUGH) Patient is:: awake, verbal, in bed, talking Per staff patient has:: no adverse event Internal Medicine Objective - Results Result Diagrams: 01/10/19 15:10 01/10/19 15:10 Recent Labs: Laboratory Last Values WBC 8.4 Th/cmm (4.8-10.8) 01/10/19 15:10 RBC 5.16 Mil/cmm (3.80-5.20) 01/10/19 15:10 Hgb 14.9 gm/dL (12-16) 01/10/19 15:10 Hct 44.3 % (41.0-60) 01/10/19 15:10 MCV 85.8 fl (81-100) 01/10/19 15:10 MCH 28.9 pg (27.0-31.0) 01/10/19 15:10 MCHC Differential 33.7 pg (28.0-36.0) 01/10/19 15:10 RDW 12.1 % (11.5-20.0) 01/10/19 15:10 Plt Count 291 Th/cmm (150-400) 01/10/19 15:10 MPV 7.3 fl 01/10/19 15:10 Neutrophils % 59.5 % (40.0-80.0) 01/10/19 15:10 Lymphocytes % 31.2 % (20.0-50.0) 01/10/19 15:10 Monocytes % 5.0 % (2.0-10.0) 01/10/19 15:10 Eosinophils % 4.3 % (0.0-5.0) 01/10/19 15:10 Basophils % 0.0 % (0.0-2.0) 01/10/19 15:10 Sodium 131 mEq/L (136-145) L 01/10/19 15:10 Potassium 4.2 mEq/L (3.5-5.1) 01/10/19 15:10 Chloride 96 mEq/L (98-107) L 01/10/19 15:10 Carbon Dioxide 23.9 mEq/L (21.0-31.0) 01/10/19 15:10 Anion Gap 15.3 (7.0-16.0) 01/10/19 15:10 BUN 18 mg/dL (7-25) 01/10/19 15:10 Creatinine 1.0 mg/dL (0.6-1.2) 01/10/19 15:10 Est GFR ( Amer) TNP 01/10/19 15:10 Est GFR (Non-Af Amer) TNP 01/10/19 15:10 BUN/Creatinine Ratio 18.0 01/10/19 15:10 Glucose 363 mg/dL (70-105) H 01/10/19 15:10 POC Glucose 207 MG/DL (70 - 105) H 02/18/19 11:47 Calcium 9.6 mg/dL (8.6-10.3) 01/10/19 15:10 Total Bilirubin 0.5 mg/dL (0.3-1.0) 01/10/19 15:10 AST 13 U/L (13-39) 01/10/19 15:10 ALT 14 U/L (7-52) 01/10/19 15:10 Alkaline Phosphatase 66 U/L (34-104) 01/10/19 15:10 Troponin I 0.04 ng/mL (0.01-0.05) 01/19/19 22:30 Total Protein 7.1 gm/dL (6.0-8.3) 01/10/19 15:10 Albumin 3.7 gm/dL (3.7-5.3) 01/10/19 15:10 Globulin 3.4 gm/dL 01/10/19 15:10 Albumin/Globulin Ratio 1.1 (1.0-1.8) 01/10/19 15:10 Triglycerides 417 mg/dL (<150) H 01/10/19 15:10 Cholesterol 188 mg/dL (<200) 01/10/19 15:10 LDL Cholesterol Direct 109 mg/dL (75-193) 01/10/19 15:10 HDL Cholesterol 27 mg/dL (23-92) 01/10/19 15:10 TSH 1.76 uIU/ml (0.34-5.60) 01/10/19 15:10 Urine Source CLEAN C 01/14/19 17:00 Urine Color YELLOW 01/14/19 17:00 Urine Clarity CLOUDY (CLEAR) H 01/14/19 17:00 Urine pH 6.5 (4.6 - 8.0) 01/14/19 17:00 Ur Specific [place] <= 1.005 (1.005-1.030) 01/14/19 17:00 Urine Protein NEGATIVE mg/dL (NEGATIVE) 01/14/19 17:00 Urine Glucose (UA) 100 mg/dL (NEGATIVE) H 01/14/19 17:00 Urine Ketones NEGATIVE mg/dL (NEGATIVE) 01/14/19 17:00 Urine Blood SMALL (NEGATIVE) H 01/14/19 17:00 Urine Nitrate NEGATIVE (NEGATIVE) 01/14/19 17:00 Urine Bilirubin NEGATIVE (NEGATIVE) 01/14/19 17:00 Urine Urobilinogen 0.2 E.U./dL (0.2 - 1.0) 01/14/19 17:00 Ur Leukocyte Esterase MODERATE (NEGATIVE) H 01/14/19 17:00 Urine RBC 2-5 /hpf (0-5) 01/14/19 17:00 Urine WBC 6-10 /hpf (0-5) H 01/14/19 17:00 Ur Epithelial Cells FEW /lpf (FEW) 01/14/19 17:00 Urine Bacteria MANY /hpf (NONE SEEN) H 01/14/19 17:00 RPR NONREACTIVE (NONREACTIVE) 01/10/19 15:10 - Physical Exam Vitals and I&O: Vital Signs Temp 98.6 F 02/21/19 15:33 Pulse 70 02/21/19 17:10 Resp 18 02/21/19 15:33 BP 195/108 02/21/19 17:10 Pulse Ox 100 02/21/19 15:33 Intake & Output 02/20/19 02/21/19 02/21/19 18:59 06:59 18:59 Intake Total 900 480 Balance 900 480 Intake: Oral 900 480 Other: # Voids 3 2 # Bowel Movements 0 0 Stool Characteristics Soft Soft Soft Active Medications: Current Medications Acetaminophen (Tylenol Extra Strength) 500 mg PO Q4H PRN PRN Reason: Pain or Fever >101 Stop: 03/12/19 00:41 Last Admin: 02/09/19 18:22 Dose: 500 mg Al Hydrox/Mg Hydrox/Simethicone (Maalox) 30 ml PO Q4HR PRN PRN Reason: GI DISTRESS Stop: 03/11/19 19:56 Albuterol/Ipratropium (Duoneb Neb) 3 ml HHN Q4H PRN PRN Reason: Wheezing Stop: 03/12/19 00:48 Last Admin: 02/18/19 19:24 Dose: 3 ml Aripiprazole (Abilify) 30 mg PO DAILY [facility]; Protocol Stop: 03/17/19 08:59 Last Admin: 02/21/19 08:58 Dose: 30 mg Aspirin (Ecotrin) 81 mg PO DAILY [facility] Stop: 03/12/19 08:59 Last Admin: 02/21/19 08:56 Dose: 81 mg Atorvastatin Calcium (Lipitor) 20 mg PO HS [facility]; Protocol Stop: 03/12/19 20:59 Last Admin: 02/20/19 21:11 Dose: 20 mg Brimonidine Tartrate (Alphagan 0.1% Ophth Soln) 1 drop EACH EYE TID [facility] Stop: 03/12/19 08:59 Last Admin: 02/21/19 13:10 Dose: Not Given Carvedilol (Coreg) 12.5 mg PO BID [facility] Stop: 03/21/19 08:59 Last Admin: 02/21/19 17:10 Dose: 12.5 mg Docusate Sodium (Colace) 100 mg PO BID [facility] Stop: 03/12/19 08:59 Last Admin: 02/21/19 17:10 Dose: Not Given Duloxetine HCl (Cymbalta) 60 mg PO DAILY [facility]; Protocol Stop: 04/16/19 13:59 Last Admin: 02/21/19 08:58 Dose: 60 mg Fluticasone Propionate (Flonase) 1 spr NS DAILY [facility] Stop: 03/12/19 08:59 Last Admin: 02/21/19 09:00 Dose: 1 spr Glucagon (Glucagen) 1 mg IM PRN PRN PRN Reason: BS below 70 Stop: 03/11/19 23:24 Guaifenesin/Dextromethorphan (Robitussin Dm) 10 ml PO TID [facility] Stop: 04/18/19 20:59 Last Admin: 02/21/19 13:10 Dose: Not Given Haloperidol Lactate (Haldol Concentrate 10mg/5ml Susp) 5 mg PO BID [facility]; Protocol Stop: 03/18/19 08:59 Last Admin: 02/21/19 17:35 Dose: 5 mg Hydralazine HCl (Apresoline) 10 mg PO BID [facility] Stop: 03/12/19 08:59 Last Admin: 02/21/19 17:09 Dose: 10 mg Ibuprofen (Motrin) 600 mg PO Q8H PRN PRN Reason: breakthrough pain Stop: 03/12/19 00:35 Last Admin: 02/20/19 16:51 Dose: 600 mg Insulin Glargine (Lantus Insulin) 26 units SUBQ HS [facility] Stop: 03/12/19 20:59 Last Admin: 02/20/19 21:15 Dose: 26 units Insulin Human Lispro (Humalog Insulin Sliding Scale) 0 units SUBQ [facility]; Protocol Stop: 03/11/19 20:59 Last Admin: 02/21/19 17:35 Dose: Not Given Isosorbide Dinitrate (Isordil) 10 mg PO Q8HR [facility] Stop: 03/12/19 04:59 Last Admin: 02/21/19 12:25 Dose: Not Given Latanoprost (Xalatan 0.005% [facility]) 1 drop EACH EYE HS [facility] Stop: 03/12/19 20:59 Last Admin: 02/20/19 21:16 Dose: 1 drop Levothyroxine Sodium (Synthroid) 0.075 mg PO QDAC [facility] Stop: 03/12/19 07:29 Last Admin: 02/21/19 06:41 Dose: 0.075 mg Loratadine (Claritin) 10 mg PO DAILY [facility] Stop: 03/12/19 08:59 Last Admin: 02/21/19 08:58 Dose: 10 mg Losartan Potassium (Cozaar) 50 mg PO DAILY [facility] Stop: 03/12/19 08:59 Last Admin: 02/21/19 08:57 Dose: 50 mg Magnesium Hydroxide (Milk Of Magnesia) 30 ml PO HS PRN PRN Reason: Constipation Multivitamins/Vitamin C (Theragran) 1 tab PO DAILY [facility] Stop: 03/12/19 08:59 Last Admin: 02/21/19 08:59 Dose: 1 tab Naproxen (Naprosyn) 500 mg PO BIDWM [facility] Stop: 03/20/19 17:59 Last Admin: 02/21/19 17:09 Dose: 500 mg Nitroglycerin (Nitrostat) 0.4 mg SL Q5MIN PRN PRN Reason: CHEST PAIN Stop: 03/11/19 23:24 Last Admin: 02/12/19 06:52 Dose: 0.4 mg Oxycodone/Acetaminophen (Percocet 5/325mg Oral Tab) 1 tab PO Q4H PRN PRN Reason: severe pain (7-10) Stop: 04/16/19 11:01 Last Admin: 02/21/19 17:10 Dose: 1 tab Senna (Senna) 17.2 mg PO HS [facility] Stop: 03/12/19 20:59 Last Admin: 02/20/19 21:12 Dose: 17.2 mg Sodium Phosphate (Fleet Enema) 135 ml RC DAILY PRN PRN Reason: Constipation Stop: 03/11/19 23:24 Vitamin B Complex/Vit C/Folic Acid (Vitamin B Complex W/Vitamin C) 1 tab PO DAILY [facility] Stop: 03/12/19 08:59 Last Admin: 02/21/19 08:59 Dose: 1 tab Zolpidem Tartrate (Ambien) 5 mg PO HS PRN PRN Reason: Insomnia Stop: 04/16/19 10:58 Last Admin: 02/18/19 22:20 Dose: 5 mg General: alert HEENT: NC/AT, PERRLA, EOMI, anicteric sclerae, throat clear Neck: Supple, No JVD, No thyromegaly, +2 carotid pulse wo bruit, No LAD Lungs: CTAB Cardiovascular: RRR, Normal S1, Normal S2, without murmur Abdomen: soft, non-tender, non-distended Extremities: clear Neurological: no change Internal Medicine Assmt/Plan - Assessment Assessment: 1.DM. 2.HTN. 3.HYPOTHYROIDISM. 5.PSYCHOSIS 5.COUGHING - Plan Plan: CONTINUE ON CURRENT MEDICATION AND DIET. Nutritional Asmnt/Malnutr-PDOC - Dietary Evaluation Malnutrition Findings (Please click <Entered> for more info): Nutritional Asmnt/Malnutrition Start: 01/11/19 12: 41 Text: Status: Complete Freq: Protocol: Document 01/11/19 12:41 AXEL (Rec: 01/11/19 12:45 [email or web address] [email or web address]) Nutritional Asmnt/Malnutrition Patient General Information Nutritional Screening Consult Diagnosis PSYCHOSIS Pertinent Medical Hx/Surgical Hx HTN, DM, HYPOTHYROIDISM, PSYCHOSIS, DJD Subjective Information IA CONSULT: DM PT IS A 78 YEAR OLD FEMALE FROM [facility] D/T AGGRESSIVE BEHAVIOR. PT WAS HERE RECENTLY, DISCHARGED ON . PER MEAL/NUTRITION ACTIVITY RECORD, PT TYPICALLY ATE 100% MEALS. HT: 59 WT: 310 LB (141 KG) ABW: 186 LB (84.66 KG) BMI: 45.78 (OBESE III) GI: WNL, NON-TENDER, LARGE, ROUND BM: NOT NOTED I/O: 240/NOT NOTED SKIN: SKIN BREAKDOWN TO BUTTOCKS AREA LUIS: NOT NOTED DIET ORDER: CCHO 45GM, PUREED ESTIMATED ENERGY NEEDS: (OBESE III, ABW) 6227-0015 KCALS (20-25 KCALS/ KG) 68-85 G PRO (0.8-1.0 G/KG) 5969-2911 ML (25-30 ML/KG) PT PO INTAKE: 100% SNACK PROVIDED. Current Diet Order/ Nutrition Support CCHO 45GM, PUREED Pertinent Medications MAALOX (PRN), ALBUTEROL (PRN), LIPITOR, COREG, COLACE, GLUCAGON (PRN), LANTUS, SYNTHROID, INS-SS, COZAAR, MOM (PRN), THEREGRAN, SENNA, FLEET ENEMA (PRN), VIT B COMLPEX WITH VIT C Pertinent Labs 01/10: NA 131, GLUCOSE 363 POC GLUCOSE (LAST 24 HOURS): 257, 250 Nutritional Hx/Data Height 1.75 m Height (Calculated Centimeters) 175.3 Current Weight (lbs) 140.614 kg Weight (Calculated Kilograms) 140.6 Weight (Calculated Grams) 600195.6 [place] Body Weight 145 % [place] Body Weight 214 Body Mass Index (BMI) 45.8 Weight Status Morbidly Obese GI Symptoms GI Symptoms None Last BM NOT NOTED Skin Integrity/Comment: SKIN BREAKDOWN TO BUTTOCKS AREA LUIS: NOT NOTED Current %PO Good (75-100%) Estimated Nutritional Goals BEE in Kcals: Adj wt of IBW Calories/Kcals/Kg 20-25 Kcals Calculated 4551-5255 Protein: Adj wt of IBW Protein g/k.8-1.0 Protein Calculated 68-85 Fluid: ml 7435-2006 ML (25-30 ML/KG) Nutritional Problem 1. Problem Problem ALTERED NUTRITION RELATED LABS Etiology R/T ENDOCRINE DYSFUNCTION Signs/Symptoms: AEB HX DM AND GLUCOSE 363 Malnutrition Related to Morbid Obesity Malnutrition related to morbid obesity Weight 200% of ideal wt Query Text:(Any 1 Criteria met) Malnutrition related to morbid obesity Yes Intervention/Recommendation Comments [facility]. [facility] ORDERED. 2. CONTNIUE ANTIHYPERGLYCEMIC MEDICATION FOR GLUCOSE CONTROL PER MD ORDER. Expected Outcomes/Goals Expected Outcomes/Goals 1. PO INTAKE TO MEET 75% OF NUTRITIONAL NEEDS. 2. MONITOR PO INTAKE, WT, NUTRITION RELATED LABS AND SKIN INTEGRITY. 3. F/U LOW RISK IN 7 DAYS, 01/18
[2019-02-21] MEDS: Atorvastatin Calcium 10 MG TAB PO SCH (21:39)
[2019-02-21] MEDS: Insulin Glargine 100 units/ml 10ml Vial SUBQ SCH (21:40)
--- NOTE | 2019-02-21 22:17 | Progress Notes ---
DATE: 02/21/2019 SUBJECTIVE: An 78-year-old female, still depressed, withdrawn, still anxious, irritable, decreasing behavioral disturbances seems to be showing some signs of improvement, generally calmer, not as agitated, not as angry, but still pretty demanding, easily agitated, confused and pretty forgetful. Medications were noted. We will continue to monitor. JOB# [id number]
[2019-02-22] MEDS: INSULIN LISPRO SLIDING SCALE 100 UNITS/ML UNIT SUBQ SCH ×4 (07:00→21:24)
[2019-02-22] MEDS: Levothyroxine 0.075 Mg Tab PO SCH (07:05)
[2019-02-22] MEDS: Haldol Oral Sol.(concentrate) 10 mg/5 mL Udc PO SCH ×2 (09:59→17:45)
[2019-02-22] MEDS: Guaifenesin DM 10 ML UDC PO SCH ×3 (09:59→21:25)
[2019-02-22] MEDS: Multivitamin Tab PO SCH (10:01)
[2019-02-22] MEDS: Vitamin B Complex w/Vitamin C Tab PO SCH (10:02)
[2019-02-22] MEDS: Fluticasone Propionate Nasal 1 SPR SPR NS SCH (10:02)
--- NOTE | 2019-02-22 18:22 | Internal Medicine Prog Note ---
Internal Medicine Subjective - Subjective Service Date: 02/22/19 Patient seen and examined:: without staff (SHE FEELS BETTER,LESS COUGH) Patient is:: awake, verbal, in bed, talking Per staff patient has:: no adverse event Internal Medicine Objective - Results Result Diagrams: 01/10/19 15:10 01/10/19 15:10 Recent Labs: Laboratory Last Values WBC 8.4 Th/cmm (4.8-10.8) 01/10/19 15:10 RBC 5.16 Mil/cmm (3.80-5.20) 01/10/19 15:10 Hgb 14.9 gm/dL (12-16) 01/10/19 15:10 Hct 44.3 % (41.0-60) 01/10/19 15:10 MCV 85.8 fl (81-100) 01/10/19 15:10 MCH 28.9 pg (27.0-31.0) 01/10/19 15:10 MCHC Differential 33.7 pg (28.0-36.0) 01/10/19 15:10 RDW 12.1 % (11.5-20.0) 01/10/19 15:10 Plt Count 291 Th/cmm (150-400) 01/10/19 15:10 MPV 7.3 fl 01/10/19 15:10 Neutrophils % 59.5 % (40.0-80.0) 01/10/19 15:10 Lymphocytes % 31.2 % (20.0-50.0) 01/10/19 15:10 Monocytes % 5.0 % (2.0-10.0) 01/10/19 15:10 Eosinophils % 4.3 % (0.0-5.0) 01/10/19 15:10 Basophils % 0.0 % (0.0-2.0) 01/10/19 15:10 Sodium 131 mEq/L (136-145) L 01/10/19 15:10 Potassium 4.2 mEq/L (3.5-5.1) 01/10/19 15:10 Chloride 96 mEq/L (98-107) L 01/10/19 15:10 Carbon Dioxide 23.9 mEq/L (21.0-31.0) 01/10/19 15:10 Anion Gap 15.3 (7.0-16.0) 01/10/19 15:10 BUN 18 mg/dL (7-25) 01/10/19 15:10 Creatinine 1.0 mg/dL (0.6-1.2) 01/10/19 15:10 Est GFR ( Amer) TNP 01/10/19 15:10 Est GFR (Non-Af Amer) TNP 01/10/19 15:10 BUN/Creatinine Ratio 18.0 01/10/19 15:10 Glucose 363 mg/dL (70-105) H 01/10/19 15:10 POC Glucose 207 MG/DL (70 - 105) H 02/18/19 11:47 Calcium 9.6 mg/dL (8.6-10.3) 01/10/19 15:10 Total Bilirubin 0.5 mg/dL (0.3-1.0) 01/10/19 15:10 AST 13 U/L (13-39) 01/10/19 15:10 ALT 14 U/L (7-52) 01/10/19 15:10 Alkaline Phosphatase 66 U/L (34-104) 01/10/19 15:10 Troponin I 0.04 ng/mL (0.01-0.05) 01/19/19 22:30 Total Protein 7.1 gm/dL (6.0-8.3) 01/10/19 15:10 Albumin 3.7 gm/dL (3.7-5.3) 01/10/19 15:10 Globulin 3.4 gm/dL 01/10/19 15:10 Albumin/Globulin Ratio 1.1 (1.0-1.8) 01/10/19 15:10 Triglycerides 417 mg/dL (<150) H 01/10/19 15:10 Cholesterol 188 mg/dL (<200) 01/10/19 15:10 LDL Cholesterol Direct 109 mg/dL (75-193) 01/10/19 15:10 HDL Cholesterol 27 mg/dL (23-92) 01/10/19 15:10 TSH 1.76 uIU/ml (0.34-5.60) 01/10/19 15:10 Urine Source CLEAN C 01/14/19 17:00 Urine Color YELLOW 01/14/19 17:00 Urine Clarity CLOUDY (CLEAR) H 01/14/19 17:00 Urine pH 6.5 (4.6 - 8.0) 01/14/19 17:00 Ur Specific [place] <= 1.005 (1.005-1.030) 01/14/19 17:00 Urine Protein NEGATIVE mg/dL (NEGATIVE) 01/14/19 17:00 Urine Glucose (UA) 100 mg/dL (NEGATIVE) H 01/14/19 17:00 Urine Ketones NEGATIVE mg/dL (NEGATIVE) 01/14/19 17:00 Urine Blood SMALL (NEGATIVE) H 01/14/19 17:00 Urine Nitrate NEGATIVE (NEGATIVE) 01/14/19 17:00 Urine Bilirubin NEGATIVE (NEGATIVE) 01/14/19 17:00 Urine Urobilinogen 0.2 E.U./dL (0.2 - 1.0) 01/14/19 17:00 Ur Leukocyte Esterase MODERATE (NEGATIVE) H 01/14/19 17:00 Urine RBC 2-5 /hpf (0-5) 01/14/19 17:00 Urine WBC 6-10 /hpf (0-5) H 01/14/19 17:00 Ur Epithelial Cells FEW /lpf (FEW) 01/14/19 17:00 Urine Bacteria MANY /hpf (NONE SEEN) H 01/14/19 17:00 RPR NONREACTIVE (NONREACTIVE) 01/10/19 15:10 - Physical Exam Vitals and I&O: Vital Signs Temp 98.6 F 02/22/19 14:00 Pulse 78 02/22/19 17:46 Resp 18 02/22/19 14:00 BP 151/91 02/22/19 17:46 Pulse Ox 97 02/22/19 14:00 Intake & Output 02/21/19 02/22/19 02/22/19 18:59 06:59 18:59 Intake Total 1200 120 Balance 1200 120 Intake: Oral 1200 120 Other: # Voids 4 3 # Bowel Movements 1 Stool Characteristics Soft Soft Soft Active Medications: Current Medications Acetaminophen (Tylenol Extra Strength) 500 mg PO Q4H PRN PRN Reason: Pain or Fever >101 Stop: 03/12/19 00:41 Last Admin: 02/09/19 18:22 Dose: 500 mg Al Hydrox/Mg Hydrox/Simethicone (Maalox) 30 ml PO Q4HR PRN PRN Reason: GI DISTRESS Stop: 03/11/19 19:56 Albuterol/Ipratropium (Duoneb Neb) 3 ml HHN Q4H PRN PRN Reason: Wheezing Stop: 03/12/19 00:48 Last Admin: 02/18/19 19:24 Dose: 3 ml Aripiprazole (Abilify) 30 mg PO DAILY [facility]; Protocol Stop: 03/17/19 08:59 Last Admin: 02/22/19 10:08 Dose: 30 mg Aspirin (Ecotrin) 81 mg PO DAILY [facility] Stop: 03/12/19 08:59 Last Admin: 02/22/19 10:01 Dose: 81 mg Atorvastatin Calcium (Lipitor) 20 mg PO HS [facility]; Protocol Stop: 03/12/19 20:59 Last Admin: 02/21/19 21:39 Dose: 20 mg Brimonidine Tartrate (Alphagan 0.1% Ophth Soln) 1 drop EACH EYE TID [facility] Stop: 03/12/19 08:59 Last Admin: 02/22/19 14:37 Dose: 1 drop Carvedilol (Coreg) 12.5 mg PO BID [facility] Stop: 03/21/19 08:59 Last Admin: 02/22/19 17:46 Dose: 12.5 mg Docusate Sodium (Colace) 100 mg PO BID [facility] Stop: 03/12/19 08:59 Last Admin: 02/22/19 18:00 Dose: Not Given Duloxetine HCl (Cymbalta) 60 mg PO DAILY [facility]; Protocol Stop: 04/16/19 13:59 Last Admin: 02/22/19 10:01 Dose: 60 mg Fluticasone Propionate (Flonase) 1 spr NS DAILY [facility] Stop: 03/12/19 08:59 Last Admin: 02/22/19 10:02 Dose: 1 spr Glucagon (Glucagen) 1 mg IM PRN PRN PRN Reason: BS below 70 Stop: 03/11/19 23:24 Guaifenesin/Dextromethorphan (Robitussin Dm) 10 ml PO TID [facility] Stop: 04/18/19 20:59 Last Admin: 02/22/19 14:37 Dose: 10 ml Haloperidol Lactate (Haldol Concentrate 10mg/5ml Susp) 5 mg PO BID [facility]; Protocol Stop: 03/18/19 08:59 Last Admin: 02/22/19 17:45 Dose: 5 mg Hydralazine HCl (Apresoline) 10 mg PO BID [facility] Stop: 03/12/19 08:59 Last Admin: 02/22/19 17:46 Dose: 10 mg Ibuprofen (Motrin) 600 mg PO Q8H PRN PRN Reason: breakthrough pain Stop: 03/12/19 00:35 Last Admin: 02/20/19 16:51 Dose: 600 mg Insulin Glargine (Lantus Insulin) 26 units SUBQ HS [facility] Stop: 03/12/19 20:59 Last Admin: 02/21/19 21:40 Dose: 26 units Insulin Human Lispro (Humalog Insulin Sliding Scale) 0 units SUBQ ACHS [facility]; Protocol Stop: 03/11/19 20:59 Last Admin: 02/22/19 17:33 Dose: Not Given Isosorbide Dinitrate (Isordil) 10 mg PO Q8HR [facility] Stop: 03/12/19 04:59 Last Admin: 02/22/19 14:36 Dose: 10 mg Latanoprost (Xalatan 0.005% [facility]) 1 drop EACH EYE HS [facility] Stop: 03/12/19 20:59 Last Admin: 02/21/19 21:40 Dose: 1 drop Levothyroxine Sodium (Synthroid) 0.075 mg PO QDAC [facility] Stop: 03/12/19 07:29 Last Admin: 02/22/19 07:05 Dose: 0.075 mg Loratadine (Claritin) 10 mg PO DAILY [facility] Stop: 03/12/19 08:59 Last Admin: 02/22/19 10:02 Dose: 10 mg Losartan Potassium (Cozaar) 50 mg PO DAILY [facility] Stop: 03/12/19 08:59 Last Admin: 02/22/19 10:00 Dose: 50 mg Magnesium Hydroxide (Milk Of Magnesia) 30 ml PO HS PRN PRN Reason: Constipation Multivitamins/Vitamin C (Theragran) 1 tab PO DAILY [facility] Stop: 03/12/19 08:59 Last Admin: 02/22/19 10:01 Dose: 1 tab Naproxen (Naprosyn) 500 mg PO BIDWM CAL Stop: 03/20/19 17:59 Last Admin: 02/22/19 17:46 Dose: 500 mg Nitroglycerin (Nitrostat) 0.4 mg SL Q5MIN PRN PRN Reason: CHEST PAIN Stop: 03/11/19 23:24 Last Admin: 02/12/19 06:52 Dose: 0.4 mg Oxycodone/Acetaminophen (Percocet 5/325mg Oral Tab) 1 tab PO Q4H PRN PRN Reason: severe pain (7-10) Stop: 04/16/19 11:01 Last Admin: 02/21/19 17:10 Dose: 1 tab Senna (Senna) 17.2 mg PO HS [facility] Stop: 03/12/19 20:59 Last Admin: 02/21/19 21:39 Dose: 17.2 mg Sodium Phosphate (Fleet Enema) 135 ml RC DAILY PRN PRN Reason: Constipation Stop: 03/11/19 23:24 Vitamin B Complex/Vit C/Folic Acid (Vitamin B Complex W/Vitamin C) 1 tab PO DAILY [facility] Stop: 03/12/19 08:59 Last Admin: 02/22/19 10:02 Dose: 1 tab Zolpidem Tartrate (Ambien) 5 mg PO HS PRN PRN Reason: Insomnia Stop: 04/16/19 10:58 Last Admin: 02/18/19 22:20 Dose: 5 mg General: alert HEENT: NC/AT, PERRLA, EOMI, anicteric sclerae, throat clear Neck: Supple, No JVD, No thyromegaly, +2 carotid pulse wo bruit, No LAD Lungs: CTAB Cardiovascular: RRR, Normal S1, Normal S2, without murmur Abdomen: soft, non-tender, non-distended Extremities: clear Neurological: no change Internal Medicine Assmt/Plan - Assessment Assessment: 1.DM. 2.HTN. 3.HYPOTHYROIDISM. 5.PSYCHOSIS 5.COUGHING - Plan Plan: CONTINUE ON CURRENT MEDICATION AND DIET. Nutritional Asmnt/Malnutr-PDOC - Dietary Evaluation Malnutrition Findings (Please click <Entered> for more info): Nutritional Asmnt/Malnutrition Start: 01/11/19 12: 41 Text: Status: Complete Freq: Protocol: Document 01/11/19 12:41 AXEL (Rec: 01/11/19 12:45 [email or web address] [email or web address]) Nutritional Asmnt/Malnutrition Patient General Information Nutritional Screening Consult Diagnosis PSYCHOSIS Pertinent Medical Hx/Surgical Hx HTN, DM, HYPOTHYROIDISM, PSYCHOSIS, DJD Subjective Information IA CONSULT: DM PT IS A 78 YEAR OLD FEMALE [facility] AD[facility] ON 01/10 D/T AGGRESSIVE BEHAVIOR. PT WAS HERE RECENTLY, DISCHARGED ON . PER MEAL/NUTRITION ACTIVITY RECORD, PT TYPICALLY ATE 100% MEALS. HT: 59 WT: 310 LB (141 KG) ABW: 186 LB (84.66 KG) BMI: 45.78 (OBESE III) GI: WNL, NON-TENDER, LARGE, ROUND BM: NOT NOTED I/O: 240/NOT NOTED SKIN: SKIN BREAKDOWN TO BUTTOCKS AREA LUIS: NOT NOTED DIET ORDER: CCHO 45GM, PUREED ESTIMATED ENERGY NEEDS: (OBESE III, ABW) 4977-2045 KCALS (20-25 KCALS/ KG) 68-85 G PRO (0.8-1.0 G/KG) 3287-5905 ML (25-30 ML/KG) PT PO INTAKE: 100% SNACK PROVIDED. Current Diet Order/ Nutrition Support CCHO 45GM, PUREED Pertinent Medications MAALOX (PRN), ALBUTEROL (PRN), LIPITOR, COREG, COLACE, GLUCAGON (PRN), LANTUS, SYNTHROID, INS-SS, COZAAR, MOM (PRN), THEREGRAN, SENNA, FLEET ENEMA (PRN), VIT B COMLPEX WITH VIT C Pertinent Labs 01/10: NA 131, GLUCOSE 363 POC GLUCOSE (LAST 24 HOURS): 257, 250 Nutritional Hx/Data Height 1.75 m Height (Calculated Centimeters) 175.3 Current Weight (lbs) 140.614 kg Weight (Calculated Kilograms) 140.6 Weight (Calculated Grams) 266406.6 [place] Body Weight 145 % [place] Body Weight 214 Body Mass Index (BMI) 45.8 Weight Status Morbidly Obese GI Symptoms GI Symptoms None Last BM NOT NOTED Skin Integrity/Comment: SKIN BREAKDOWN TO BUTTOCKS AREA LUIS: NOT NOTED Current %PO Good (75-100%) Estimated Nutritional Goals BEE in Kcals: Adj wt of IBW Calories/Kcals/Kg 20-25 Kcals Calculated 5251-5910 Protein: Adj wt of IBW Protein g/k.8-1.0 Protein Calculated 68-85 Fluid: ml 7084-7997 ML (25-30 ML/KG) Nutritional Problem 1. Problem Problem ALTERED NUTRITION RELATED LABS Etiology R/T ENDOCRINE DYSFUNCTION Signs/Symptoms: AEB HX DM AND GLUCOSE 363 Malnutrition Related to Morbid Obesity Malnutrition related to morbid obesity Weight 200% of ideal wt Query Text:(Any 1 Criteria met) Malnutrition related to morbid obesity Yes Intervention/Recommendation Comments 1. [facility], PUREED DIET ORDERED. 2. CONTNIUE ANTIHYPERGLYCEMIC MEDICATION FOR GLUCOSE CONTROL PER MD ORDER. Expected Outcomes/Goals Expected Outcomes/Goals 1. PO INTAKE TO MEET 75% OF NUTRITIONAL NEEDS. 2. MONITOR PO INTAKE, WT, NUTRITION RELATED LABS AND SKIN INTEGRITY. 3. F/U LOW RISK IN 7 DAYS, 01/18
[2019-02-22] MEDS: Insulin Glargine 100 units/ml 10ml Vial SUBQ SCH (21:24)
[2019-02-22] MEDS: APAP/Oxycodone 5/325mg Tab PO PRN (21:26)
[2019-02-22] MEDS: Atorvastatin Calcium 10 MG TAB PO SCH (21:26)
--- NOTE | 2019-02-22 22:41 | Progress Notes ---
DATE: 02/22/2019 SUBJECTIVE: The patient in the hospital, hospitalizations in the past, had been very aggressive. On [id number], the patient generally calm, irritable, still with some odd behaviors, poor orientation, still focused on pain, not answering most questions, not wanting to talk right now, mostly isolative, paranoid of other, suspicious, demanding. Staff noting she is depressed, withdrawn, and refusing care. PLAN: We will continue to monitor ongoing symptoms as noted. We are also trying to find a place for the patient to be discharged to [facility] to care for basic needs at this time. Needs a structured setting, which we have not as of yet been able to find. [facility]# [id number]
[2019-02-23] MEDS: Levothyroxine 0.075 Mg Tab PO SCH (06:46)
[2019-02-23] MEDS: INSULIN LISPRO SLIDING SCALE 100 UNITS/ML UNIT SUBQ SCH ×4 (07:18→20:56)
[2019-02-23] MEDS: Vitamin B Complex w/Vitamin C Tab PO SCH (09:00)
[2019-02-23] MEDS: Multivitamin Tab PO SCH (09:00)
[2019-02-23] MEDS: Haldol Oral Sol.(concentrate) 10 mg/5 mL Udc PO SCH ×2 (09:00→18:37)
[2019-02-23] MEDS: Guaifenesin DM 10 ML UDC PO SCH ×3 (09:00→20:56)
[2019-02-23] MEDS: Fluticasone Propionate Nasal 1 SPR SPR NS SCH (10:22)
--- NOTE | 2019-02-23 16:33 | General Progress Note ---
Subjective - Review of Systems Service Date: 02/23/19 Subjective: resting comfortably no distress Objective - Results Result Diagrams: 01/10/19 15:10 01/10/19 15:10 Recent Labs: Laboratory Last Values WBC 8.4 Th/cmm (4.8-10.8) 01/10/19 15:10 RBC 5.16 Mil/cmm (3.80-5.20) 01/10/19 15:10 Hgb 14.9 gm/dL (12-16) 01/10/19 15:10 Hct 44.3 % (41.0-60) 01/10/19 15:10 MCV 85.8 fl (81-100) 01/10/19 15:10 MCH 28.9 pg (27.0-31.0) 01/10/19 15:10 MCHC Differential 33.7 pg (28.0-36.0) 01/10/19 15:10 RDW 12.1 % (11.5-20.0) 01/10/19 15:10 Plt Count 291 Th/cmm (150-400) 01/10/19 15:10 MPV 7.3 fl 01/10/19 15:10 Neutrophils % 59.5 % (40.0-80.0) 01/10/19 15:10 Lymphocytes % 31.2 % (20.0-50.0) 01/10/19 15:10 Monocytes % 5.0 % (2.0-10.0) 01/10/19 15:10 Eosinophils % 4.3 % (0.0-5.0) 01/10/19 15:10 Basophils % 0.0 % (0.0-2.0) 01/10/19 15:10 Sodium 131 mEq/L (136-145) L 01/10/19 15:10 Potassium 4.2 mEq/L (3.5-5.1) 01/10/19 15:10 Chloride 96 mEq/L (98-107) L 01/10/19 15:10 Carbon Dioxide 23.9 mEq/L (21.0-31.0) 01/10/19 15:10 Anion Gap 15.3 (7.0-16.0) 01/10/19 15:10 BUN 18 mg/dL (7-25) 01/10/19 15:10 Creatinine 1.0 mg/dL (0.6-1.2) 01/10/19 15:10 Est GFR ( Amer) TNP 01/10/19 15:10 Est GFR (Non-Af Amer) TNP 01/10/19 15:10 BUN/Creatinine Ratio 18.0 01/10/19 15:10 Glucose 363 mg/dL (70-105) H 01/10/19 15:10 POC Glucose 207 MG/DL (70 - 105) H 02/18/19 11:47 Calcium 9.6 mg/dL (8.6-10.3) 01/10/19 15:10 Total Bilirubin 0.5 mg/dL (0.3-1.0) 01/10/19 15:10 AST 13 U/L (13-39) 01/10/19 15:10 ALT 14 U/L (7-52) 01/10/19 15:10 Alkaline Phosphatase 66 U/L (34-104) 01/10/19 15:10 Troponin I 0.04 ng/mL (0.01-0.05) 01/19/19 22:30 Total Protein 7.1 gm/dL (6.0-8.3) 01/10/19 15:10 Albumin 3.7 gm/dL (3.7-5.3) 01/10/19 15:10 Globulin 3.4 gm/dL 01/10/19 15:10 Albumin/Globulin Ratio 1.1 (1.0-1.8) 01/10/19 15:10 Triglycerides 417 mg/dL (<150) H 01/10/19 15:10 Cholesterol 188 mg/dL (<200) 01/10/19 15:10 LDL Cholesterol Direct 109 mg/dL (75-193) 01/10/19 15:10 HDL Cholesterol 27 mg/dL (23-92) 01/10/19 15:10 TSH 1.76 uIU/ml (0.34-5.60) 01/10/19 15:10 Urine Source CLEAN C 01/14/19 17:00 Urine Color YELLOW 01/14/19 17:00 Urine Clarity CLOUDY (CLEAR) H 01/14/19 17:00 Urine pH 6.5 (4.6 - 8.0) 01/14/19 17:00 Ur Specific [place] <= 1.005 (1.005-1.030) 01/14/19 17:00 Urine Protein NEGATIVE mg/dL (NEGATIVE) 01/14/19 17:00 Urine Glucose (UA) 100 mg/dL (NEGATIVE) H 01/14/19 17:00 Urine Ketones NEGATIVE mg/dL (NEGATIVE) 01/14/19 17:00 Urine Blood SMALL (NEGATIVE) H 01/14/19 17:00 Urine Nitrate NEGATIVE (NEGATIVE) 01/14/19 17:00 Urine Bilirubin NEGATIVE (NEGATIVE) 01/14/19 17:00 Urine Urobilinogen 0.2 E.U./dL (0.2 - 1.0) 01/14/19 17:00 Ur Leukocyte Esterase MODERATE (NEGATIVE) H 01/14/19 17:00 Urine RBC 2-5 /hpf (0-5) 01/14/19 17:00 Urine WBC 6-10 /hpf (0-5) H 01/14/19 17:00 Ur Epithelial Cells FEW /lpf (FEW) 01/14/19 17:00 Urine Bacteria MANY /hpf (NONE SEEN) H 01/14/19 17:00 RPR NONREACTIVE (NONREACTIVE) 01/10/19 15:10 - Physical Exam Vitals and I&O: Vital Signs Temp 98.1 F 02/23/19 15:41 Pulse 81 02/23/19 15:41 Resp 20 02/23/19 15:41 BP 151/73 02/23/19 15:41 Pulse Ox 97 02/23/19 15:41 Intake & Output 02/22/19 02/23/19 02/23/19 18:59 06:59 18:59 Intake Total 900 Balance 900 Intake: Oral 900 Other: # Voids 3 # Bowel Movements 1 Stool Characteristics Soft Soft Active Medications: Current Medications Acetaminophen (Tylenol Extra Strength) 500 mg PO Q4H PRN PRN Reason: Pain or Fever >101 Stop: 03/12/19 00:41 Last Admin: 02/09/19 18:22 Dose: 500 mg Al Hydrox/Mg Hydrox/Simethicone (Maalox) 30 ml PO Q4HR PRN PRN Reason: GI DISTRESS Stop: 03/11/19 19:56 Albuterol/Ipratropium (Duoneb Neb) 3 ml HHN Q4H PRN PRN Reason: Wheezing Stop: 03/12/19 00:48 Last Admin: 02/18/19 19:24 Dose: 3 ml Aripiprazole (Abilify) 30 mg PO DAILY [facility]; Protocol Stop: 03/17/19 08:59 Last Admin: 02/23/19 09:00 Dose: 30 mg Aspirin (Ecotrin) 81 mg PO DAILY [facility] Stop: 03/12/19 08:59 Last Admin: 02/23/19 09:00 Dose: 81 mg Atorvastatin Calcium (Lipitor) 20 mg PO HS [facility]; Protocol Stop: 03/12/19 20:59 Last Admin: 02/22/19 21:26 Dose: 20 mg Brimonidine Tartrate (Alphagan 0.1% Ophth Soln) 1 drop EACH EYE TID [facility] Stop: 03/12/19 08:59 Last Admin: 02/23/19 10:15 Dose: 1 drop Carvedilol (Coreg) 12.5 mg PO BID [facility] Stop: 03/21/19 08:59 Last Admin: 02/23/19 09:00 Dose: 12.5 mg Docusate Sodium (Colace) 100 mg PO BID [facility] Stop: 03/12/19 08:59 Last Admin: 02/23/19 09:00 Dose: 100 mg Duloxetine HCl (Cymbalta) 60 mg PO DAILY [facility]; Protocol Stop: 04/16/19 13:59 Last Admin: 02/23/19 09:00 Dose: 60 mg Fluticasone Propionate (Flonase) 1 spr NS DAILY [facility] Stop: 03/12/19 08:59 Last Admin: 02/23/19 10:22 Dose: 1 spr Glucagon (Glucagen) 1 mg IM PRN PRN PRN Reason: BS below 70 Stop: 03/11/19 23:24 Guaifenesin/Dextromethorphan (Robitussin Dm) 10 ml PO TID [facility] Stop: 04/18/19 20:59 Last Admin: 02/23/19 09:00 Dose: 10 ml Haloperidol Lactate (Haldol Concentrate 10mg/5ml Susp) 5 mg PO BID [facility]; Protocol Stop: 03/18/19 08:59 Last Admin: 02/23/19 09:00 Dose: 5 mg Hydralazine HCl (Apresoline) 10 mg PO BID [facility] Stop: 03/12/19 08:59 Last Admin: 02/23/19 09:00 Dose: 10 mg Ibuprofen (Motrin) 600 mg PO Q8H PRN PRN Reason: breakthrough pain Stop: 03/12/19 00:35 Last Admin: 02/20/19 16:51 Dose: 600 mg Insulin Glargine (Lantus Insulin) 26 units SUBQ HS CAL Stop: 03/12/19 20:59 Last Admin: 02/22/19 21:24 Dose: 26 units Insulin Human Lispro (Humalog Insulin Sliding Scale) 0 units SUBQ ACHS [facility]; Protocol Stop: 03/11/19 20:59 Last Admin: 02/23/19 11:30 Dose: Not Given Isosorbide Dinitrate (Isordil) 10 mg PO Q8HR [facility] Stop: 03/12/19 04:59 Last Admin: 02/23/19 13:00 Dose: 10 mg Latanoprost (Xalatan 0.005% Ophth Soln) 1 drop EACH EYE HS [facility] Stop: 03/12/19 20:59 Last Admin: 02/22/19 21:23 Dose: 1 drop Levothyroxine Sodium (Synthroid) 0.075 mg PO QDAC CAL Stop: 03/12/19 07:29 Last Admin: 02/23/19 06:46 Dose: 0.075 mg Loratadine (Claritin) 10 mg PO DAILY [facility] Stop: 03/12/19 08:59 Last Admin: 02/23/19 09:00 Dose: 10 mg Losartan Potassium (Cozaar) 50 mg PO DAILY [facility] Stop: 03/12/19 08:59 Last Admin: 02/23/19 09:00 Dose: 50 mg Magnesium Hydroxide (Milk Of Magnesia) 30 ml PO HS PRN PRN Reason: Constipation Multivitamins/Vitamin C (Theragran) 1 tab PO DAILY [facility] Stop: 03/12/19 08:59 Last Admin: 02/23/19 09:00 Dose: 1 tab Naproxen (Naprosyn) 500 mg PO BIDWM [facility] Stop: 03/20/19 17:59 Last Admin: 02/23/19 08:00 Dose: 500 mg Nitroglycerin (Nitrostat) 0.4 mg SL Q5MIN PRN PRN Reason: CHEST PAIN Stop: 03/11/19 23:24 Last Admin: 02/12/19 06:52 Dose: 0.4 mg Oxycodone/Acetaminophen (Percocet 5/325mg Oral Tab) 1 tab PO Q4H PRN PRN Reason: severe pain (7-10) Stop: 04/16/19 11:01 Last Admin: 02/22/19 21:26 Dose: 1 tab Senna (Senna) 17.2 mg PO HS CAL Stop: 03/12/19 20:59 Last Admin: 02/22/19 21:26 Dose: 17.2 mg Sodium Phosphate (Fleet Enema) 135 ml RC DAILY PRN PRN Reason: Constipation Stop: 03/11/19 23:24 Vitamin B Complex/Vit C/Folic Acid (Vitamin B Complex W/Vitamin C) 1 tab PO DAILY [facility] Stop: 03/12/19 08:59 Last Admin: 02/23/19 09:00 Dose: 1 tab Zolpidem Tartrate (Ambien) 5 mg PO HS PRN PRN Reason: Insomnia Stop: 04/16/19 10:58 Last Admin: 02/18/19 22:20 Dose: 5 mg General: No acute distress HEENT: PERRLA Neck: Supple, JVD Cardiovascular: Regular rate, Normal S1, Normal S2 Lungs: Clear to auscultation Abdomen: Bowel sounds, Soft Assessment/Plan - Assessment Assessment: 1.DM. 2.HTN. 3.HYPOTHYROIDISM. 4.PSYCHOSIS - Plan Plan: continue current treatment Nutritional Asmnt/Malnutr-PDOC - Dietary Evaluation Malnutrition Findings (Please click <Entered> for more info): Nutritional Asmnt/Malnutrition Start: 01/11/19 12: 41 Text: Status: Complete Freq: Protocol: Document 01/11/19 12:41 AXEL (Rec: 01/11/19 12:45 [email or web address] [email or web address]) Nutritional Asmnt/Malnutrition Patient General Information Nutritional Screening Consult Diagnosis PSYCHOSIS Pertinent Medical Hx/Surgical Hx HTN, DM, HYPOTHYROIDISM, PSYCHOSIS, DJD Subjective Information IA CONSULT: DM PT IS A 78 YEAR OLD FEMALE [facility] AD[facility] ON [facility]/10 D/T AGGRESSIVE BEHAVIOR. PT WAS HERE RECENTLY, DISCHARGED ON . PER MEAL/NUTRITION ACTIVITY RECORD, PT TYPICALLY ATE 100% MEALS. HT: 59 WT: 310 LB (141 KG) ABW: 186 LB (84.66 KG) BMI: 45.78 (OBESE III) GI: WNL, NON-TENDER, LARGE, ROUND BM: NOT NOTED I/O: 240/NOT NOTED SKIN: SKIN BREAKDOWN TO BUTTOCKS AREA LUIS: NOT NOTED [facility], P[facility]ED ESTIMATED ENERGY NEEDS: (OBESE III, ABW) 1491-0799 KCALS (20-25 KCALS/ KG) 68-85 G PRO (0.8-1.0 G/KG) 9910-8327 ML (25-30 ML/KG) PT PO INTAKE: 100% SNACK PROVIDED. Current Diet Order/ Nutrition Support [facility] 45GM, PUREED Pertinent Medications MAALOX (PRN), ALBUTEROL (PRN), LIPITOR, COREG, COLACE, GLUCAGON (PRN), LANTUS, SYNTHROID, INS-SS, COZAAR, MOM (PRN), THEREGRAN, SENNA, FLEET ENEMA (PRN), VIT B COMLPEX WITH VIT C Pertinent Labs 01/10: NA 131, GLUCOSE 363 POC GLUCOSE (LAST 24 HOURS): 257, 250 Nutritional Hx/Data Height 1.75 m Height (Calculated Centimeters) 175.3 Current Weight (lbs) 140.614 kg Weight (Calculated Kilograms) 140.6 Weight (Calculated Grams) 120480.6 [place] Body Weight 145 % [place] Body Weight 214 Body Mass Index (BMI) 45.8 Weight Status Morbidly Obese GI Symptoms GI Symptoms None Last BM NOT NOTED Skin Integrity/Comment: SKIN BREAKDOWN TO BUTTOCKS AREA LUIS: NOT NOTED Current %PO Good (75-100%) Estimated Nutritional Goals BEE in Kcals: Adj wt of IBW Calories/Kcals/Kg 20-25 Kcals Calculated 4925-4463 Protein: Adj wt of IBW Protein g/k.8-1.0 Protein Calculated 68-85 Fluid: ml 2774-5436 ML (25-30 ML/KG) Nutritional Problem 1. Problem Problem ALTERED NUTRITION RELATED LABS Etiology R/T ENDOCRINE DYSFUNCTION Signs/Symptoms: AEB HX DM AND GLUCOSE 363 Malnutrition Related to Morbid Obesity Malnutrition related to morbid obesity Weight 200% of ideal wt Query Text:(Any 1 Criteria met) Malnutrition related to morbid obesity Yes Intervention/Recommendation Comments 1. CONTINUE WITH [facility] 45GM, PUREED DIET ORDERED. 2. CONTNIUE ANTIHYPERGLYCEMIC MEDICATION FOR GLUCOSE CONTROL PER MD ORDER. Expected Outcomes/Goals Expected Outcomes/Goals 1. PO INTAKE TO MEET 75% OF NUTRITIONAL NEEDS. 2. MONITOR PO INTAKE, WT, NUTRITION RELATED LABS AND SKIN INTEGRITY. 3. F/U LOW RISK IN 7 DAYS, 01/18
[2019-02-23] MEDS: APAP/Oxycodone 5/325mg Tab PO PRN (18:16)
--- NOTE | 2019-02-23 18:57 | Progress Notes ---
DATE: 02/23/2019 SUBJECTIVE: The patient is currently in the hospital, noted to be labile, unpredictable, demanding, resistive to care, go to talk to her today. She does not want to be bothered sleeping, but arousable. She is noted by staff to be easily agitated, ongoing behavioral disturbances, difficult to place given her history, very demanding highly labile, suspicious of others, abusive to staff at times. PLAN: We will continue to monitor. Medications were noted. Currently on Haldol b.i.d. and Cymbalta. JOB# [id number]
[2019-02-23] MEDS: Insulin Glargine 100 units/ml 10ml Vial SUBQ SCH (20:56)
[2019-02-23] MEDS: Atorvastatin Calcium 10 MG TAB PO SCH (20:56)
[2019-02-24] MEDS: INSULIN LISPRO SLIDING SCALE 100 UNITS/ML UNIT SUBQ SCH ×4 (06:42→21:26)
[2019-02-24] MEDS: Levothyroxine 0.075 Mg Tab PO SCH (06:42)
[2019-02-24] MEDS: Fluticasone Propionate Nasal 1 SPR SPR NS SCH (09:30)
[2019-02-24] MEDS: Guaifenesin DM 10 ML UDC PO SCH ×3 (09:49→21:25)
[2019-02-24] MEDS: Haldol Oral Sol.(concentrate) 10 mg/5 mL Udc PO SCH ×2 (09:49→16:42)
[2019-02-24] MEDS: Vitamin B Complex w/Vitamin C Tab PO SCH (09:51)
[2019-02-24] MEDS: Multivitamin Tab PO SCH (09:51)
--- NOTE | 2019-02-24 11:01 | General Progress Note ---
Subjective - Review of Systems Service Date: 02/24/19 Subjective: resting comfortably no distress Objective - Results Result Diagrams: 01/10/19 15:10 01/10/19 15:10 Recent Labs: Laboratory Last Values WBC 8.4 Th/cmm (4.8-10.8) 01/10/19 15:10 RBC 5.16 Mil/cmm (3.80-5.20) 01/10/19 15:10 Hgb 14.9 gm/dL (12-16) 01/10/19 15:10 Hct 44.3 % (41.0-60) 01/10/19 15:10 MCV 85.8 fl (81-100) 01/10/19 15:10 MCH 28.9 pg (27.0-31.0) 01/10/19 15:10 MCHC Differential 33.7 pg (28.0-36.0) 01/10/19 15:10 RDW 12.1 % (11.5-20.0) 01/10/19 15:10 Plt Count 291 Th/cmm (150-400) 01/10/19 15:10 MPV 7.3 fl 01/10/19 15:10 Neutrophils % 59.5 % (40.0-80.0) 01/10/19 15:10 Lymphocytes % 31.2 % (20.0-50.0) 01/10/19 15:10 Monocytes % 5.0 % (2.0-10.0) 01/10/19 15:10 Eosinophils % 4.3 % (0.0-5.0) 01/10/19 15:10 Basophils % 0.0 % (0.0-2.0) 01/10/19 15:10 Sodium 131 mEq/L (136-145) L 01/10/19 15:10 Potassium 4.2 mEq/L (3.5-5.1) 01/10/19 15:10 Chloride 96 mEq/L (98-107) L 01/10/19 15:10 Carbon Dioxide 23.9 mEq/L (21.0-31.0) 01/10/19 15:10 Anion Gap 15.3 (7.0-16.0) 01/10/19 15:10 BUN 18 mg/dL (7-25) 01/10/19 15:10 Creatinine 1.0 mg/dL (0.6-1.2) 01/10/19 15:10 Est GFR ( Amer) TNP 01/10/19 15:10 Est GFR (Non-Af Amer) TNP 01/10/19 15:10 BUN/Creatinine Ratio 18.0 01/10/19 15:10 Glucose 363 mg/dL (70-105) H 01/10/19 15:10 POC Glucose 207 MG/DL (70 - 105) H 02/18/19 11:47 Calcium 9.6 mg/dL (8.6-10.3) 01/10/19 15:10 Total Bilirubin 0.5 mg/dL (0.3-1.0) 01/10/19 15:10 AST 13 U/L (13-39) 01/10/19 15:10 ALT 14 U/L (7-52) 01/10/19 15:10 Alkaline Phosphatase 66 U/L (34-104) 01/10/19 15:10 Troponin I 0.04 ng/mL (0.01-0.05) 01/19/19 22:30 Total Protein 7.1 gm/dL (6.0-8.3) 01/10/19 15:10 Albumin 3.7 gm/dL (3.7-5.3) 01/10/19 15:10 Globulin 3.4 gm/dL 01/10/19 15:10 Albumin/Globulin Ratio 1.1 (1.0-1.8) 01/10/19 15:10 Triglycerides 417 mg/dL (<150) H 01/10/19 15:10 Cholesterol 188 mg/dL (<200) 01/10/19 15:10 LDL Cholesterol Direct 109 mg/dL (75-193) 01/10/19 15:10 HDL Cholesterol 27 mg/dL (23-92) 01/10/19 15:10 TSH 1.76 uIU/ml (0.34-5.60) 01/10/19 15:10 Urine Source CLEAN C 01/14/19 17:00 Urine Color YELLOW 01/14/19 17:00 Urine Clarity CLOUDY (CLEAR) H 01/14/19 17:00 Urine pH 6.5 (4.6 - 8.0) 01/14/19 17:00 Ur Specific [place] <= 1.005 (1.005-1.030) 01/14/19 17:00 Urine Protein NEGATIVE mg/dL (NEGATIVE) 01/14/19 17:00 Urine Glucose (UA) 100 mg/dL (NEGATIVE) H 01/14/19 17:00 Urine Ketones NEGATIVE mg/dL (NEGATIVE) 01/14/19 17:00 Urine Blood SMALL (NEGATIVE) H 01/14/19 17:00 Urine Nitrate NEGATIVE (NEGATIVE) 01/14/19 17:00 Urine Bilirubin NEGATIVE (NEGATIVE) 01/14/19 17:00 Urine Urobilinogen 0.2 E.U./dL (0.2 - 1.0) 01/14/19 17:00 Ur Leukocyte Esterase MODERATE (NEGATIVE) H 01/14/19 17:00 Urine RBC 2-5 /hpf (0-5) 01/14/19 17:00 Urine WBC 6-10 /hpf (0-5) H 01/14/19 17:00 Ur Epithelial Cells FEW /lpf (FEW) 01/14/19 17:00 Urine Bacteria MANY /hpf (NONE SEEN) H 01/14/19 17:00 RPR NONREACTIVE (NONREACTIVE) 01/10/19 15:10 - Physical Exam Vitals and I&O: Vital Signs Temp 97.8 F 02/24/19 06:17 Pulse 69 02/24/19 09:51 Resp 18 02/24/19 06:49 BP 168/78 02/24/19 09:51 Pulse Ox 95 02/24/19 06:49 Intake & Output 02/23/19 02/24/19 02/24/19 18:59 06:59 18:59 Intake Total 1000 240 Output Total 1 Balance 1000 239 Intake: Oral 1000 240 Output: Urine/Stool Mix 1 Other: # Voids 5 1 # Bowel Movements 2 1 Stool Characteristics Soft Active Medications: Current Medications Acetaminophen (Tylenol Extra Strength) 500 mg PO Q4H PRN PRN Reason: Pain or Fever >101 Stop: 03/12/19 00:41 Last Admin: 02/09/19 18:22 Dose: 500 mg Al Hydrox/Mg Hydrox/Simethicone (Maalox) 30 ml PO Q4HR PRN PRN Reason: GI DISTRESS Stop: 03/11/19 19:56 Albuterol/Ipratropium (Duoneb Neb) 3 ml HHN Q4H PRN PRN Reason: Wheezing Stop: 03/12/19 00:48 Last Admin: 02/18/19 19:24 Dose: 3 ml Aripiprazole (Abilify) 30 mg PO DAILY [facility]; Protocol Stop: 03/17/19 08:59 Last Admin: 02/24/19 09:49 Dose: 30 mg Aspirin (Ecotrin) 81 mg PO DAILY [facility] Stop: 03/12/19 08:59 Last Admin: 02/24/19 09:51 Dose: 81 mg Atorvastatin Calcium (Lipitor) 20 mg PO HS [facility]; Protocol Stop: 03/12/19 20:59 Last Admin: 02/23/19 20:56 Dose: 20 mg Brimonidine Tartrate (Alphagan 0.1% Ophth Soln) 1 drop EACH EYE TID [facility] Stop: 03/12/19 08:59 Last Admin: 02/23/19 20:56 Dose: 1 drop Carvedilol (Coreg) 12.5 mg PO BID [facility] Stop: 03/21/19 08:59 Last Admin: 02/24/19 09:51 Dose: 12.5 mg Docusate Sodium (Colace) 100 mg PO BID [facility] Stop: 03/12/19 08:59 Last Admin: 02/24/19 09:50 Dose: 100 mg Duloxetine HCl (Cymbalta) 60 mg PO DAILY [facility]; Protocol Stop: 04/16/19 13:59 Last Admin: 02/24/19 09:50 Dose: 60 mg Fluticasone Propionate (Flonase) 1 spr NS DAILY [facility] Stop: 03/12/19 08:59 Last Admin: 02/23/19 10:22 Dose: 1 spr Glucagon (Glucagen) 1 mg IM PRN PRN PRN Reason: BS below 70 Stop: 03/11/19 23:24 Guaifenesin/Dextromethorphan (Robitussin Dm) 10 ml PO TID [facility] Stop: 04/18/19 20:59 Last Admin: 02/24/19 09:49 Dose: 10 ml Haloperidol Lactate (Haldol Concentrate 10mg/5ml Susp) 5 mg PO BID [facility]; Protocol Stop: 03/18/19 08:59 Last Admin: 02/24/19 09:49 Dose: 5 mg Hydralazine HCl (Apresoline) 10 mg PO BID [facility] Stop: 03/12/19 08:59 Last Admin: 02/24/19 09:50 Dose: 10 mg Ibuprofen (Motrin) 600 mg PO Q8H PRN PRN Reason: breakthrough pain Stop: 03/12/19 00:35 Last Admin: 02/20/19 16:51 Dose: 600 mg Insulin Glargine (Lantus Insulin) 26 units SUBQ HS [facility] Stop: 03/12/19 20:59 Last Admin: 02/23/19 20:56 Dose: Not Given Insulin Human Lispro (Humalog Insulin Sliding Scale) 0 units SUBQ ACHS [facility]; Protocol Stop: 03/11/19 20:59 Last Admin: 02/24/19 06:42 Dose: 2 units Isosorbide Dinitrate (Isordil) 10 mg PO Q8HR [facility] Stop: 03/12/19 04:59 Last Admin: 02/24/19 06:02 Dose: 10 mg Latanoprost (Xalatan 0.005% Ophth Soln) 1 drop EACH EYE HS [facility] Stop: 03/12/19 20:59 Last Admin: 02/23/19 20:58 Dose: 1 drop Levothyroxine Sodium (Synthroid) 0.075 mg PO QDAC [facility] Stop: 03/12/19 07:29 Last Admin: 02/24/19 06:42 Dose: 0.075 mg Loratadine (Claritin) 10 mg PO DAILY [facility] Stop: 03/12/19 08:59 Last Admin: 02/24/19 09:50 Dose: 10 mg Losartan Potassium (Cozaar) 50 mg PO DAILY [facility] Stop: 03/12/19 08:59 Last Admin: 02/24/19 09:50 Dose: 50 mg Magnesium Hydroxide (Milk Of Magnesia) 30 ml PO HS PRN PRN Reason: Constipation Multivitamins/Vitamin C (Theragran) 1 tab PO DAILY [facility] Stop: 03/12/19 08:59 Last Admin: 02/24/19 09:51 Dose: 1 tab Naproxen (Naprosyn) 500 mg PO BIDWM [facility] Stop: 03/20/19 17:59 Last Admin: 02/23/19 18:33 Dose: Not Given Nitroglycerin (Nitrostat) 0.4 mg SL Q5MIN PRN PRN Reason: CHEST PAIN Stop: 03/11/19 23:24 Last Admin: 02/12/19 06:52 Dose: 0.4 mg Oxycodone/Acetaminophen (Percocet 5/325mg Oral Tab) 1 tab PO Q4H PRN PRN Reason: severe pain (7-10) Stop: 04/16/19 11:01 Last Admin: 02/23/19 18:16 Dose: 1 tab Senna (Senna) 17.2 mg PO HS [facility] Stop: 03/12/19 20:59 Last Admin: 02/23/19 20:57 Dose: 17.2 mg Sodium Phosphate (Fleet Enema) 135 ml RC DAILY PRN PRN Reason: Constipation Stop: 03/11/19 23:24 Vitamin B Complex/Vit C/Folic Acid (Vitamin B Complex W/Vitamin C) 1 tab PO DAILY [facility] Stop: 03/12/19 08:59 Last Admin: 02/24/19 09:51 Dose: 1 tab Zolpidem Tartrate (Ambien) 5 mg PO HS PRN PRN Reason: Insomnia Stop: 04/16/19 10:58 Last Admin: 02/18/19 22:20 Dose: 5 mg General: No acute distress HEENT: PERRLA Neck: Supple, JVD Cardiovascular: Regular rate, Normal S1, Normal S2 Lungs: Clear to auscultation Abdomen: Bowel sounds, Soft Assessment/Plan - Assessment Assessment: 1.DM. 2.HTN. 3.HYPOTHYROIDISM. 4.PSYCHOSIS - Plan Plan: continue current treatment Nutritional Asmnt/Malnutr-PDOC - Dietary Evaluation Malnutrition Findings (Please click <Entered> for more info): Nutritional Asmnt/Malnutrition Start: 01/11/19 12: 41 Text: Status: Complete Freq: Protocol: Document 01/11/19 12:41 AXEL (Rec: 01/11/19 12:45 [email or web address] [email or web address]) Nutritional Asmnt/Malnutrition Patient General Information Nutritional Screening Consult Diagnosis PSYCHOSIS Pertinent Medical Hx/Surgical Hx HTN, DM, HYPOTHYROIDISM, PSYCHOSIS, DJD Subjective Information IA CONSULT: DM PT IS A 78 YEAR OLD FEMALE [facility] ON [facility]/10 D/T AGGRESSIVE BEHAVIOR. PT WAS HERE RECENTLY, DISCHARGED ON . PER MEAL/NUTRITION ACTIVITY RECORD, PT TYPICALLY ATE 100% MEALS. HT: 59 WT: 310 LB (141 KG) ABW: 186 LB (84.66 KG) BMI: 45.78 (OBESE III) GI: WNL, NON-TENDER, LARGE, ROUND BM: NOT NOTED I/O: 240/NOT NOTED SKIN: SKIN BREAKDOWN TO BUTTOCKS AREA LUIS: NOT NOTED DIET ORDER: CCHO 45GM, PUREED ESTIMATED ENERGY NEEDS: (OBESE III, ABW) 0195-8158 KCALS (20-25 KCALS/ KG) 68-85 G PRO (0.8-1.0 G/KG) 5005-6638 ML (25-30 ML/KG) PT PO INTAKE: 100% SNACK PROVIDED. Current Diet Order/ Nutrition Support CCHO 45GM, PUREED Pertinent Medications MAALOX (PRN), ALBUTEROL (PRN), LIPITOR, COREG, COLACE, GLUCAGON (PRN), LANTUS, SYNTHROID, INS-SS, COZAAR, MOM (PRN), THEREGRAN, SENNA, FLEET ENEMA (PRN), VIT B COMLPEX WITH VIT C Pertinent Labs 01/10: NA 131, GLUCOSE 363 POC GLUCOSE (LAST 24 HOURS): 257, 250 Nutritional Hx/Data Height 1.75 m Height (Calculated Centimeters) 175.3 Current Weight (lbs) 140.614 kg Weight (Calculated Kilograms) 140.6 Weight (Calculated Grams) 976556.6 George Body Weight 145 % George Body Weight 214 Body Mass Index (BMI) 45.8 Weight Status Morbidly Obese GI Symptoms GI Symptoms None Last BM NOT NOTED Skin Integrity/Comment: SKIN BREAKDOWN TO BUTTOCKS AREA LUIS: NOT NOTED Current %PO Good (75-100%) Estimated Nutritional Goals BEE in Kcals: Adj wt of IBW Calories/Kcals/Kg 20-25 Kcals Calculated 6820-8422 Protein: Adj wt of IBW Protein g/k.8-1.0 Protein Calculated 68-85 Fluid: ml 9781-0355 ML (25-30 ML/KG) Nutritional Problem 1. Problem Problem ALTERED NUTRITION RELATED LABS Etiology R/T ENDOCRINE DYSFUNCTION Signs/Symptoms: AEB HX DM AND GLUCOSE 363 Malnutrition Related to Morbid Obesity Malnutrition related to morbid obesity Weight 200% of ideal wt Query Text:(Any 1 Criteria met) Malnutrition related to morbid obesity Yes Intervention/Recommendation Comments 1. CONTINUE WITH [facility] 45GM, PUREED DIET ORDERED. 2. CONTNIUE ANTIHYPERGLYCEMIC MEDICATION FOR GLUCOSE CONTROL PER MD ORDER. Expected Outcomes/Goals Expected Outcomes/Goals 1. PO INTAKE TO MEET 75% OF NUTRITIONAL NEEDS. 2. MONITOR PO INTAKE, WT, NUTRITION RELATED LABS AND SKIN INTEGRITY. 3. F/U LOW RISK IN 7 DAYS, 01/18
[2019-02-24] MEDS: APAP/Oxycodone 5/325mg Tab PO PRN (17:21)
[2019-02-24] MEDS: Insulin Glargine 100 units/ml 10ml Vial SUBQ SCH (21:25)
[2019-02-24] MEDS: Atorvastatin Calcium 10 MG TAB PO SCH (21:25)
--- NOTE | 2019-02-25 00:15 | Progress Notes ---
DATE: 02/24/2019 SUBJECTIVE: The patient is currently in the hospital, slept for about 8 hours. No overt agitation. She is pretty unruly at times, impulsive, demanding, unpredictable, difficult to satisfy her. The patient yelling sometimes at the staff. The patient's daughter is apparently coming to visit. The patient demanding more opiates, ongoing confusional state. The patient is still making statements that someone was trying to hurt her, stating that somebody tried to cover her face with chloroform. ASSESSMENT: Ongoing delusions, paranoia, suspicion, feels the staff is trying to kill her. PLAN: We will continue to monitor. Continue dosing of Haldol. [facility]# [id number]
[2019-02-25] MEDS: INSULIN LISPRO SLIDING SCALE 100 UNITS/ML UNIT SUBQ SCH ×4 (06:47→21:02)
[2019-02-25] MEDS: Levothyroxine 0.075 Mg Tab PO SCH (06:48)
[2019-02-25] MEDS: Guaifenesin DM 10 ML UDC PO SCH ×3 (08:22→21:01)
[2019-02-25] MEDS: Haldol Oral Sol.(concentrate) 10 mg/5 mL Udc PO SCH ×3 (08:22→17:01)
[2019-02-25] MEDS: Vitamin B Complex w/Vitamin C Tab PO SCH ×2 (08:24→08:52)
[2019-02-25] MEDS: Multivitamin Tab PO SCH ×2 (08:24→08:53)
[2019-02-25] MEDS: Fluticasone Propionate Nasal 1 SPR SPR NS SCH (08:28)
--- NOTE | 2019-02-25 14:13 | General Progress Note ---
Subjective - Review of Systems Service Date: 02/25/19 Subjective: resting comfortably no distress Objective - Results Result Diagrams: 01/10/19 15:10 01/10/19 15:10 Recent Labs: Laboratory Last Values WBC 8.4 Th/cmm (4.8-10.8) 01/10/19 15:10 RBC 5.16 Mil/cmm (3.80-5.20) 01/10/19 15:10 Hgb 14.9 gm/dL (12-16) 01/10/19 15:10 Hct 44.3 % (41.0-60) 01/10/19 15:10 MCV 85.8 fl (81-100) 01/10/19 15:10 MCH 28.9 pg (27.0-31.0) 01/10/19 15:10 MCHC Differential 33.7 pg (28.0-36.0) 01/10/19 15:10 RDW 12.1 % (11.5-20.0) 01/10/19 15:10 Plt Count 291 Th/cmm (150-400) 01/10/19 15:10 MPV 7.3 fl 01/10/19 15:10 Neutrophils % 59.5 % (40.0-80.0) 01/10/19 15:10 Lymphocytes % 31.2 % (20.0-50.0) 01/10/19 15:10 Monocytes % 5.0 % (2.0-10.0) 01/10/19 15:10 Eosinophils % 4.3 % (0.0-5.0) 01/10/19 15:10 Basophils % 0.0 % (0.0-2.0) 01/10/19 15:10 Sodium 131 mEq/L (136-145) L 01/10/19 15:10 Potassium 4.2 mEq/L (3.5-5.1) 01/10/19 15:10 Chloride 96 mEq/L (98-107) L 01/10/19 15:10 Carbon Dioxide 23.9 mEq/L (21.0-31.0) 01/10/19 15:10 Anion Gap 15.3 (7.0-16.0) 01/10/19 15:10 BUN 18 mg/dL (7-25) 01/10/19 15:10 Creatinine 1.0 mg/dL (0.6-1.2) 01/10/19 15:10 Est GFR ( Amer) TNP 01/10/19 15:10 Est GFR (Non-Af Amer) TNP 01/10/19 15:10 BUN/Creatinine Ratio 18.0 01/10/19 15:10 Glucose 363 mg/dL (70-105) H 01/10/19 15:10 POC Glucose 207 MG/DL (70 - 105) H 02/18/19 11:47 Calcium 9.6 mg/dL (8.6-10.3) 01/10/19 15:10 Total Bilirubin 0.5 mg/dL (0.3-1.0) 01/10/19 15:10 AST 13 U/L (13-39) 01/10/19 15:10 ALT 14 U/L (7-52) 01/10/19 15:10 Alkaline Phosphatase 66 U/L (34-104) 01/10/19 15:10 Troponin I 0.04 ng/mL (0.01-0.05) 01/19/19 22:30 Total Protein 7.1 gm/dL (6.0-8.3) 01/10/19 15:10 Albumin 3.7 gm/dL (3.7-5.3) 01/10/19 15:10 Globulin 3.4 gm/dL 01/10/19 15:10 Albumin/Globulin Ratio 1.1 (1.0-1.8) 01/10/19 15:10 Triglycerides 417 mg/dL (<150) H 01/10/19 15:10 Cholesterol 188 mg/dL (<200) 01/10/19 15:10 LDL Cholesterol Direct 109 mg/dL (75-193) 01/10/19 15:10 HDL Cholesterol 27 mg/dL (23-92) 01/10/19 15:10 TSH 1.76 uIU/ml (0.34-5.60) 01/10/19 15:10 Urine Source CLEAN C 01/14/19 17:00 Urine Color YELLOW 01/14/19 17:00 Urine Clarity CLOUDY (CLEAR) H 01/14/19 17:00 Urine pH 6.5 (4.6 - 8.0) 01/14/19 17:00 Ur Specific [place] <= 1.005 (1.005-1.030) 01/14/19 17:00 Urine Protein NEGATIVE mg/dL (NEGATIVE) 01/14/19 17:00 Urine Glucose (UA) 100 mg/dL (NEGATIVE) H 01/14/19 17:00 Urine Ketones NEGATIVE mg/dL (NEGATIVE) 01/14/19 17:00 Urine Blood SMALL (NEGATIVE) H 01/14/19 17:00 Urine Nitrate NEGATIVE (NEGATIVE) 01/14/19 17:00 Urine Bilirubin NEGATIVE (NEGATIVE) 01/14/19 17:00 Urine Urobilinogen 0.2 E.U./dL (0.2 - 1.0) 01/14/19 17:00 Ur Leukocyte Esterase MODERATE (NEGATIVE) H 01/14/19 17:00 Urine RBC 2-5 /hpf (0-5) 01/14/19 17:00 Urine WBC 6-10 /hpf (0-5) H 01/14/19 17:00 Ur Epithelial Cells FEW /lpf (FEW) 01/14/19 17:00 Urine Bacteria MANY /hpf (NONE SEEN) H 01/14/19 17:00 RPR NONREACTIVE (NONREACTIVE) 01/10/19 15:10 - Physical Exam Vitals and I&O: Vital Signs Temp 97.9 F 02/25/19 05:59 Pulse 97 02/25/19 13:37 Resp 16 02/25/19 06:54 BP 163/99 02/25/19 13:37 Pulse Ox 97 02/25/19 06:54 Intake & Output 02/24/19 02/25/19 02/25/19 18:59 06:59 18:59 Intake Total 1000 720 Output Total 1 Balance 1000 719 Intake: Oral 1000 720 Output: Urine/Stool Mix 1 Other: # Voids 4 1 # Bowel Movements 1 1 Stool Characteristics Soft Active Medications: Current Medications Acetaminophen (Tylenol Extra Strength) 500 mg PO Q4H PRN PRN Reason: Pain or Fever >101 Stop: 03/12/19 00:41 Last Admin: 02/09/19 18:22 Dose: 500 mg Al Hydrox/Mg Hydrox/Simethicone (Maalox) 30 ml PO Q4HR PRN PRN Reason: GI DISTRESS Stop: 03/11/19 19:56 Albuterol/Ipratropium (Duoneb Neb) 3 ml HHN Q4H PRN PRN Reason: Wheezing Stop: 03/12/19 00:48 Last Admin: 02/18/19 19:24 Dose: 3 ml Aripiprazole (Abilify) 30 mg PO DAILY [facility]; Protocol Stop: 03/17/19 08:59 Last Admin: 02/25/19 08:54 Dose: Not Given Aspirin (Ecotrin) 81 mg PO DAILY [facility] Stop: 03/12/19 08:59 Last Admin: 02/25/19 08:54 Dose: Not Given Atorvastatin Calcium (Lipitor) 20 mg PO HS [facility]; Protocol Stop: 03/12/19 20:59 Last Admin: 02/24/19 21:25 Dose: 20 mg Brimonidine Tartrate (Alphagan 0.1% Oph Soln) 1 drop EACH EYE TID [facility] Stop: 03/12/19 08:59 Last Admin: 02/25/19 13:38 Dose: Not Given Carvedilol (Coreg) 12.5 mg PO BID [facility] Stop: 03/21/19 08:59 Last Admin: 02/25/19 08:53 Dose: Not Given Docusate Sodium (Colace) 100 mg PO BID [facility] Stop: 03/12/19 08:59 Last Admin: 02/25/19 08:53 Dose: Not Given Duloxetine HCl (Cymbalta) 60 mg PO DAILY [facility]; Protocol Stop: 04/16/19 13:59 Last Admin: 02/25/19 08:53 Dose: Not Given Fluticasone Propionate (Flonase) 1 spr NS DAILY [facility] Stop: 03/12/19 08:59 Last Admin: 02/25/19 08:28 Dose: 1 spr Glucagon (Glucagen) 1 mg IM PRN PRN PRN Reason: BS below 70 & not tolerate po Stop: 03/11/19 23:24 Guaifenesin/Dextromethorphan (Robitussin Dm) 10 ml PO TID [facility] Stop: 04/18/19 20:59 Last Admin: 02/25/19 13:38 Dose: 10 ml Haloperidol Lactate (Haldol Concentrate 10mg/5ml Susp) 5 mg PO BID [facility]; Protocol Stop: 03/18/19 08:59 Last Admin: 02/25/19 09:08 Dose: Not Given Hydralazine HCl (Apresoline) 10 mg PO BID [facility] Stop: 03/12/19 08:59 Last Admin: 02/25/19 08:53 Dose: Not Given Ibuprofen (Motrin) 600 mg PO Q8H PRN PRN Reason: breakthrough pain Stop: 03/12/19 00:35 Last Admin: 02/20/19 16:51 Dose: 600 mg Insulin Glargine (Lantus Insulin) 26 units SUBQ HS [facility] Stop: 03/12/19 20:59 Last Admin: 02/24/19 21:25 Dose: 26 units Insulin Human Lispro (Humalog Insulin Sliding Scale) 0 units SUBQ ACHS [facility]; Protocol Stop: 03/11/19 20:59 Last Admin: 02/25/19 11:52 Dose: 2 units Isosorbide Dinitrate (Isordil) 10 mg PO Q8HR [facility] Stop: 03/12/19 04:59 Last Admin: 02/25/19 13:37 Dose: 10 mg Latanoprost (Xalatan 0.005% Ophth Soln) 1 drop EACH EYE HS [facility] Stop: 03/12/19 20:59 Last Admin: 02/24/19 21:28 Dose: 1 drop Levothyroxine Sodium (Synthroid) 0.075 mg PO QDAC [facility] Stop: 03/12/19 07:29 Last Admin: 02/25/19 06:48 Dose: 0.075 mg Loratadine (Claritin) 10 mg PO DAILY [facility] Stop: 03/12/19 08:59 Last Admin: 02/25/19 08:53 Dose: Not Given Losartan Potassium (Cozaar) 50 mg PO DAILY [facility] Stop: 03/12/19 08:59 Last Admin: 02/25/19 08:53 Dose: Not Given Magnesium Hydroxide (Milk Of Magnesia) 30 ml PO HS PRN PRN Reason: Constipation Multivitamins/Vitamin C (Theragran) 1 tab PO DAILY [facility] Stop: 03/12/19 08:59 Last Admin: 02/25/19 08:53 Dose: Not Given Naproxen (Naprosyn) 500 mg PO BIDWM [facility] Stop: 03/20/19 17:59 Last Admin: 02/25/19 09:08 Dose: Not Given Nitroglycerin (Nitrostat) 0.4 mg SL Q5MIN PRN PRN Reason: CHEST PAIN Stop: 03/11/19 23:24 Last Admin: 02/12/19 06:52 Dose: 0.4 mg Oxycodone/Acetaminophen (Percocet 5/325mg Oral Tab) 1 tab PO Q4H PRN PRN Reason: severe pain (7-10) Stop: 04/16/19 11:01 Last Admin: 02/24/19 17:21 Dose: 1 tab Senna (Senna) 17.2 mg PO HS [facility] Stop: 03/12/19 20:59 Last Admin: 02/24/19 21:29 Dose: 17.2 mg Sodium Phosphate (Fleet Enema) 135 ml RC DAILY PRN PRN Reason: Constipation Stop: 03/11/19 23:24 Vitamin B Complex/Vit C/Folic Acid (Vitamin B Complex W/Vitamin C) 1 tab PO DAILY [facility] Stop: 03/12/19 08:59 Last Admin: 02/25/19 08:52 Dose: Not Given Zolpidem Tartrate (Ambien) 5 mg PO HS PRN PRN Reason: Insomnia Stop: 04/16/19 10:58 Last Admin: 02/24/19 21:29 Dose: 5 mg General: No acute distress HEENT: PERRLA Neck: Supple, JVD Cardiovascular: Regular rate, Normal S1, Normal S2 Lungs: Clear to auscultation Abdomen: Bowel sounds, Soft Assessment/Plan - Assessment Assessment: 1.DM. 2.HTN. 3.HYPOTHYROIDISM. 4.PSYCHOSIS - Plan Plan: continue current treatment Nutritional Asmnt/Malnutr-PDOC - Dietary Evaluation Malnutrition Findings (Please click <Entered> for more info): Nutritional Asmnt/Malnutrition Start: 01/11/19 12: 41 Text: Status: Complete Freq: Protocol: Document 01/11/19 12:41 AXEL (Rec: 01/11/19 12:45 AXEL [email or web address]) Nutritional Asmnt/Malnutrition Patient General Information Nutritional Screening Consult Diagnosis PSYCHOSIS Pertinent Medical Hx/Surgical Hx HTN, DM, HYPOTHYROIDISM, PSYCHOSIS, DJD Subjective Information IA CONSULT: DM PT IS A 78 YEAR OLD FEMALE FROM [facility] ADM[facility]ED ON 01/10 D/T AGGRESSIVE BEHAVIOR. PT WAS HERE RECENTLY, DISCHARGED ON . PER MEAL/NUTRITION ACTIVITY RECORD, PT TYPICALLY ATE 100% MEALS. HT: 59 WT: 310 LB (141 KG) ABW: 186 LB (84.66 KG) BMI: 45.78 (OBESE III) GI: WNL, NON-TENDER, LARGE, ROUND BM: NOT NOTED I/O: 240/NOT NOTED SKIN: SKIN BREAKDOWN TO BUTTOCKS AREA LUIS: NOT NOTED DIET ORDER: CCHO 45GM, PUREED ESTIMATED ENERGY NEEDS: (OBESE III, ABW) 3097-5878 KCALS (20-25 KCALS/ KG) 68-85 G PRO (0.8-1.0 G/KG) 2994-6569 ML (25-30 ML/KG) PT PO INTAKE: 100% SNACK PROVIDED. Current Diet Order/ Nutrition Support CCHO 45GM, PUREED Pertinent Medications MAALOX (PRN), ALBUTEROL (PRN), LIPITOR, COREG, COLACE, GLUCAGON (PRN), LANTUS, SYNTHROID, INS-SS, COZAAR, MOM (PRN), THEREGRAN, SENNA, FLEET ENEMA (PRN), VIT B COMLPEX WITH VIT C Pertinent Labs 01/10: NA 131, GLUCOSE 363 POC GLUCOSE (LAST 24 HOURS): 257, 250 Nutritional Hx/Data Height 1.75 m Height (Calculated Centimeters) 175.3 Current Weight (lbs) 140.614 kg Weight (Calculated Kilograms) 140.6 Weight (Calculated Grams) 057553.6 Dewar Body Weight 145 % Dewar Body Weight 214 Body Mass Index (BMI) 45.8 Weight Status Morbidly Obese GI Symptoms GI Symptoms None Last BM NOT NOTED Skin Integrity/Comment: SKIN BREAKDOWN TO BUTTOCKS AREA LUIS: NOT NOTED Current %PO Good (75-100%) Estimated Nutritional Goals BEE in Kcals: Adj wt of IBW Calories/Kcals/Kg 20-25 Kcals Calculated 0230-2707 Protein: Adj wt of IBW Protein g/k.8-1.0 Protein Calculated 68-85 Fluid: ml 3366-6788 ML (25-30 ML/KG) Nutritional Problem 1. Problem Problem ALTERED NUTRITION RELATED LABS Etiology R/T ENDOCRINE DYSFUNCTION Signs/Symptoms: AEB HX DM AND GLUCOSE 363 Malnutrition Related to Morbid Obesity Malnutrition related to morbid obesity Weight 200% of ideal wt Query Text:(Any 1 Criteria met) Malnutrition related to morbid obesity Yes Intervention/Recommendation Comments 1. CONTINUE WITH [facility] 45GM, PUREED DIET ORDERED. 2. CONTNIUE ANTIHYPERGLYCEMIC MEDICATION FOR GLUCOSE CONTROL PER MD ORDER. Expected Outcomes/Goals Expected Outcomes/Goals 1. PO INTAKE TO MEET 75% OF NUTRITIONAL NEEDS. 2. MONITOR PO INTAKE, WT, NUTRITION RELATED LABS AND SKIN INTEGRITY. 3. F/U LOW RISK IN 7 DAYS, 01/18
--- NOTE | 2019-02-25 16:16 | Progress Notes ---
DATE: 02/25/2019 SUBJECTIVE: The patient is currently in the hospital, noted to be forgetful at times, labile, unpredictable, withdrawn, depressed, episodes of anxiousness, restlessness, easily irritated, not want to talk to me today. I go and to talk to her. She is sleeping, arousable, but does not want to engage. Ongoing forgetfulness. We are also trying to help with placement, ongoing behaviors, yelling at times. Medications were noted. JOB# [id number]
[2019-02-25] MEDS: Atorvastatin Calcium 10 MG TAB PO SCH (21:01)
[2019-02-25] MEDS: Insulin Glargine 100 units/ml 10ml Vial SUBQ SCH (21:02)
[2019-02-25] MEDS: APAP/Oxycodone 5/325mg Tab PO PRN (21:04)
[2019-02-26] MEDS: Levothyroxine 0.075 Mg Tab PO SCH (06:38)
[2019-02-26] MEDS: INSULIN LISPRO SLIDING SCALE 100 UNITS/ML UNIT SUBQ SCH ×4 (06:38→22:06)
[2019-02-26] MEDS: APAP/Oxycodone 5/325mg Tab PO PRN (06:39)
[2019-02-26] MEDS: Guaifenesin DM 10 ML UDC PO SCH ×3 (09:05→21:48)
[2019-02-26] MEDS: Haldol Oral Sol.(concentrate) 10 mg/5 mL Udc PO SCH ×2 (09:05→17:11)
[2019-02-26] MEDS: Vitamin B Complex w/Vitamin C Tab PO SCH (09:08)
[2019-02-26] MEDS: Multivitamin Tab PO SCH (09:10)
[2019-02-26] MEDS: Fluticasone Propionate Nasal 1 SPR SPR NS SCH (09:12)
[2019-02-26] MEDS: Atorvastatin Calcium 10 MG TAB PO SCH (21:45)
--- NOTE | 2019-02-26 21:45 | Internal Medicine Prog Note ---
Internal Medicine Subjective - Subjective Service Date: 02/26/19 Patient seen and examined:: with staff (SHE FEELS WELL) Patient is:: awake, verbal, in bed, talking Per staff patient has:: no adverse event Internal Medicine Objective - Results Result Diagrams: 01/10/19 15:10 01/10/19 15:10 Recent Labs: Laboratory Last Values WBC 8.4 Th/cmm (4.8-10.8) 01/10/19 15:10 RBC 5.16 Mil/cmm (3.80-5.20) 01/10/19 15:10 Hgb 14.9 gm/dL (12-16) 01/10/19 15:10 Hct 44.3 % (41.0-60) 01/10/19 15:10 MCV 85.8 fl (81-100) 01/10/19 15:10 MCH 28.9 pg (27.0-31.0) 01/10/19 15:10 MCHC Differential 33.7 pg (28.0-36.0) 01/10/19 15:10 RDW 12.1 % (11.5-20.0) 01/10/19 15:10 Plt Count 291 Th/cmm (150-400) 01/10/19 15:10 MPV 7.3 fl 01/10/19 15:10 Neutrophils % 59.5 % (40.0-80.0) 01/10/19 15:10 Lymphocytes % 31.2 % (20.0-50.0) 01/10/19 15:10 Monocytes % 5.0 % (2.0-10.0) 01/10/19 15:10 Eosinophils % 4.3 % (0.0-5.0) 01/10/19 15:10 Basophils % 0.0 % (0.0-2.0) 01/10/19 15:10 Sodium 131 mEq/L (136-145) L 01/10/19 15:10 Potassium 4.2 mEq/L (3.5-5.1) 01/10/19 15:10 Chloride 96 mEq/L (98-107) L 01/10/19 15:10 Carbon Dioxide 23.9 mEq/L (21.0-31.0) 01/10/19 15:10 Anion Gap 15.3 (7.0-16.0) 01/10/19 15:10 BUN 18 mg/dL (7-25) 01/10/19 15:10 Creatinine 1.0 mg/dL (0.6-1.2) 01/10/19 15:10 Est GFR ( Amer) TNP 01/10/19 15:10 Est GFR (Non-Af Amer) TNP 01/10/19 15:10 BUN/Creatinine Ratio 18.0 01/10/19 15:10 Glucose 363 mg/dL (70-105) H 01/10/19 15:10 POC Glucose 207 MG/DL (70 - 105) H 02/18/19 11:47 Calcium 9.6 mg/dL (8.6-10.3) 01/10/19 15:10 Total Bilirubin 0.5 mg/dL (0.3-1.0) 01/10/19 15:10 AST 13 U/L (13-39) 01/10/19 15:10 ALT 14 U/L (7-52) 01/10/19 15:10 Alkaline Phosphatase 66 U/L (34-104) 01/10/19 15:10 Troponin I 0.04 ng/mL (0.01-0.05) 01/19/19 22:30 Total Protein 7.1 gm/dL (6.0-8.3) 01/10/19 15:10 Albumin 3.7 gm/dL (3.7-5.3) 01/10/19 15:10 Globulin 3.4 gm/dL 01/10/19 15:10 Albumin/Globulin Ratio 1.1 (1.0-1.8) 01/10/19 15:10 Triglycerides 417 mg/dL (<150) H 01/10/19 15:10 Cholesterol 188 mg/dL (<200) 01/10/19 15:10 LDL Cholesterol Direct 109 mg/dL (75-193) 01/10/19 15:10 HDL Cholesterol 27 mg/dL (23-92) 01/10/19 15:10 TSH 1.76 uIU/ml (0.34-5.60) 01/10/19 15:10 Urine Source CLEAN C 01/14/19 17:00 Urine Color YELLOW 01/14/19 17:00 Urine Clarity CLOUDY (CLEAR) H 01/14/19 17:00 Urine pH 6.5 (4.6 - 8.0) 01/14/19 17:00 Ur Specific [place] <= 1.005 (1.005-1.030) 01/14/19 17:00 Urine Protein NEGATIVE mg/dL (NEGATIVE) 01/14/19 17:00 Urine Glucose (UA) 100 mg/dL (NEGATIVE) H 01/14/19 17:00 Urine Ketones NEGATIVE mg/dL (NEGATIVE) 01/14/19 17:00 Urine Blood SMALL (NEGATIVE) H 01/14/19 17:00 Urine Nitrate NEGATIVE (NEGATIVE) 01/14/19 17:00 Urine Bilirubin NEGATIVE (NEGATIVE) 01/14/19 17:00 Urine Urobilinogen 0.2 E.U./dL (0.2 - 1.0) 01/14/19 17:00 Ur Leukocyte Esterase MODERATE (NEGATIVE) H 01/14/19 17:00 Urine RBC 2-5 /hpf (0-5) 01/14/19 17:00 Urine WBC 6-10 /hpf (0-5) H 01/14/19 17:00 Ur Epithelial Cells FEW /lpf (FEW) 01/14/19 17:00 Urine Bacteria MANY /hpf (NONE SEEN) H 01/14/19 17:00 RPR NONREACTIVE (NONREACTIVE) 01/10/19 15:10 - Physical Exam Vitals and I&O: Vital Signs Temp 97.8 F 02/26/19 19:59 Pulse 78 02/26/19 19:59 Resp 20 02/26/19 19:59 BP 163/98 02/26/19 19:59 Pulse Ox 96 02/26/19 19:59 Intake & Output 02/26/19 02/26/19 02/27/19 06:59 18:59 06:59 Intake Total 480 120 Balance 480 120 Intake: Oral 480 120 Other: # Voids 2 3 # Bowel Movements 1 1 Active Medications: Current Medications Acetaminophen (Tylenol Extra Strength) 500 mg PO Q4H PRN PRN Reason: Pain or Fever >101 Stop: 03/12/19 00:41 Last Admin: 02/09/19 18:22 Dose: 500 mg Al Hydrox/Mg Hydrox/Simethicone (Maalox) 30 ml PO Q4HR PRN PRN Reason: GI DISTRESS Stop: 03/11/19 19:56 Albuterol/Ipratropium (Duoneb Neb) 3 ml HHN Q4H PRN PRN Reason: Wheezing Stop: 03/12/19 00:48 Last Admin: 02/18/19 19:24 Dose: 3 ml Aripiprazole (Abilify) 30 mg PO DAILY [facility]; Protocol Stop: 03/17/19 08:59 Last Admin: 02/26/19 09:08 Dose: 30 mg Aspirin (Ecotrin) 81 mg PO DAILY [facility] Stop: 03/12/19 08:59 Last Admin: 02/26/19 09:07 Dose: 81 mg Atorvastatin Calcium (Lipitor) 20 mg PO HS [facility]; Protocol Stop: 03/12/19 20:59 Last Admin: 02/25/19 21:01 Dose: 20 mg Brimonidine Tartrate (Alphagan 0.1% Ophth Soln) 1 drop EACH EYE TID [facility] Stop: 03/12/19 08:59 Last Admin: 02/26/19 14:46 Dose: Not Given Carvedilol (Coreg) 12.5 mg PO BID [facility] Stop: 03/21/19 08:59 Last Admin: 02/26/19 17:11 Dose: 12.5 mg Docusate Sodium (Colace) 100 mg PO BID [facility] Stop: 03/12/19 08:59 Last Admin: 02/26/19 17:11 Dose: 100 mg Duloxetine HCl (Cymbalta) 60 mg PO DAILY [facility]; Protocol Stop: 04/16/19 13:59 Last Admin: 02/26/19 09:08 Dose: 60 mg Fluticasone Propionate (Flonase) 1 spr NS DAILY [facility] Stop: 03/12/19 08:59 Last Admin: 02/26/19 09:12 Dose: 1 spr Glucagon (Glucagen) 1 mg IM PRN PRN PRN Reason: BS below 70 & not tolerate po Stop: 03/11/19 23:24 Guaifenesin/Dextromethorphan (Robitussin Dm) 10 ml PO TID [facility] Stop: 04/18/19 20:59 Last Admin: 02/26/19 14:46 Dose: Not Given Haloperidol Lactate (Haldol Concentrate 10mg/5ml Susp) 5 mg PO BID [facility]; Protocol Stop: 03/18/19 08:59 Last Admin: 02/26/19 17:11 Dose: 5 mg Hydralazine HCl (Apresoline) 10 mg PO BID CAL Stop: 03/12/19 08:59 Last Admin: 02/26/19 17:11 Dose: 10 mg Ibuprofen (Motrin) 600 mg PO Q8H PRN PRN Reason: breakthrough pain Stop: 03/12/19 00:35 Last Admin: 02/20/19 16:51 Dose: 600 mg Insulin Glargine (Lantus Insulin) 26 units SUBQ HS CAL Stop: 03/12/19 20:59 Last Admin: 02/25/19 21:02 Dose: 26 units Insulin Human Lispro (Humalog Insulin Sliding Scale) 0 units SUBQ ACHS [facility]; Protocol Stop: 03/11/19 20:59 Last Admin: 02/26/19 16:57 Dose: Not Given Isosorbide Dinitrate (Isordil) 10 mg PO Q8HR [facility] Stop: 03/12/19 04:59 Last Admin: 02/26/19 13:46 Dose: Not Given Latanoprost (Xalatan 0.005% [facility]) 1 drop EACH EYE HS [facility] Stop: 03/12/19 20:59 Last Admin: 02/25/19 21:04 Dose: 1 drop Levothyroxine Sodium (Synthroid) 0.075 mg PO QDAC CAL Stop: 03/12/19 07:29 Last Admin: 02/26/19 06:38 Dose: 0.075 mg Loratadine (Claritin) 10 mg PO DAILY CAL Stop: 03/12/19 08:59 Last Admin: 02/26/19 09:08 Dose: 10 mg Losartan Potassium (Cozaar) 50 mg PO DAILY CAL Stop: 03/12/19 08:59 Last Admin: 02/26/19 09:10 Dose: 50 mg Magnesium Hydroxide (Milk Of Magnesia) 30 ml PO HS PRN PRN Reason: Constipation Multivitamins/Vitamin C (Theragran) 1 tab PO DAILY CAL Stop: 03/12/19 08:59 Last Admin: 02/26/19 09:10 Dose: 1 tab Naproxen (Naprosyn) 500 mg PO BIDWM CAL Stop: 03/20/19 17:59 Last Admin: 02/26/19 18:57 Dose: Not Given Nitroglycerin (Nitrostat) 0.4 mg SL Q5MIN PRN PRN Reason: CHEST PAIN Stop: 03/11/19 23:24 Last Admin: 02/12/19 06:52 Dose: 0.4 mg Oxycodone/Acetaminophen (Percocet 5/325mg Oral Tab) 1 tab PO Q4H PRN PRN Reason: severe pain (7-10) Stop: 04/16/19 11:01 Last Admin: 02/26/19 06:39 Dose: 1 tab Senna (Senna) 17.2 mg PO HS CAL Stop: 03/12/19 20:59 Last Admin: 02/25/19 21:04 Dose: 17.2 mg Sodium Phosphate (Fleet Enema) 135 ml RC DAILY PRN PRN Reason: Constipation Stop: 03/11/19 23:24 Vitamin B Complex/Vit C/Folic Acid (Vitamin B Complex W/Vitamin C) 1 tab PO DAILY CAL Stop: 03/12/19 08:59 Last Admin: 02/26/19 09:08 Dose: 1 tab Zolpidem Tartrate (Ambien) 5 mg PO HS PRN PRN Reason: Insomnia Stop: 04/16/19 10:58 Last Admin: 02/25/19 21:05 Dose: 5 mg General: alert HEENT: NC/AT, PERRLA, EOMI, anicteric sclerae, throat clear Neck: Supple, No JVD, No thyromegaly, +2 carotid pulse wo bruit, No LAD Lungs: CTAB Cardiovascular: RRR, Normal S1, Normal S2, without murmur Abdomen: soft, non-tender, non-distended Extremities: clear Neurological: no change Internal Medicine Assmt/Plan - Assessment Assessment: 1.DM. 2.HTN. 3.HYPOTHYROIDISM. 5.PSYCHOSIS - Plan Plan: CONTINUE ON CURRENT MEDICATION AND DIET. Nutritional Asmnt/Malnutr-PDOC - Dietary Evaluation Malnutrition Findings (Please click <Entered> for more info): Nutritional Asmnt/Malnutrition Start: 01/11/19 12: 41 Text: Status: Complete Freq: Protocol: Document 01/11/19 12:41 AXEL (Rec: 01/11/19 12:45 [email or web address] [email or web address]) Nutritional Asmnt/Malnutrition Patient General Information Nutritional Screening Consult Diagnosis PSYCHOSIS Pertinent Medical Hx/Surgical Hx HTN, DM, HYPOTHYROIDISM, PSYCHOSIS, DJD Subjective Information IA CONSULT: DM PT IS A 78 YEAR OLD FEMALE [facility] ADM[facility]ED ON 01/10 D/T AGGRESSIVE BEHAVIOR. PT WAS HERE RECENTLY, DISCHARGED ON . PER MEAL/NUTRITION ACTIVITY RECORD, PT TYPICALLY ATE 100% MEALS. HT: 59 WT: 310 LB (141 KG) ABW: 186 LB (84.66 KG) BMI: 45.78 (OBESE III) GI: WNL, NON-TENDER, LARGE, ROUND BM: NOT NOTED I/O: 240/NOT NOTED SKIN: SKIN BREAKDOWN TO BUTTOCKS AREA LUIS: NOT NOTED DIET ORDER: CCHO 45GM, PUREED ESTIMATED ENERGY NEEDS: (OBESE III, ABW) 0418-2388 KCALS (20-25 KCALS/ KG) 68-85 G PRO (0.8-1.0 G/KG) 8554-0540 ML (25-30 ML/KG) PT PO INTAKE: 100% SNACK PROVIDED. Current Diet Order/ Nutrition Support CCHO 45GM, PUREED Pertinent Medications MAALOX (PRN), ALBUTEROL (PRN), LIPITOR, COREG, COLACE, GLUCAGON (PRN), LANTUS, SYNTHROID, INS-SS, COZAAR, MOM (PRN), THEREGRAN, SENNA, FLEET ENEMA (PRN), VIT B COMLPEX WITH VIT C Pertinent Labs 01/10: NA 131, GLUCOSE 363 POC GLUCOSE (LAST 24 HOURS): 257, 250 Nutritional Hx/Data Height 1.75 m Height (Calculated Centimeters) 175.3 Current Weight (lbs) 140.614 kg Weight (Calculated Kilograms) 140.6 Weight (Calculated Grams) 359297.6 [place] Body Weight 145 % [place] Body Weight 214 Body Mass Index (BMI) 45.8 Weight Status Morbidly Obese GI Symptoms GI Symptoms None Last BM NOT NOTED Skin Integrity/Comment: SKIN BREAKDOWN TO BUTTOCKS AREA LUIS: NOT NOTED Current %PO Good (75-100%) Estimated Nutritional Goals BEE in Kcals: Adj wt of IBW Calories/Kcals/Kg 20-25 Kcals Calculated 7686-4041 Protein: Adj wt of IBW Protein g/k.8-1.0 Protein Calculated 68-85 Fluid: ml 8982-1919 ML (25-30 ML/KG) Nutritional Problem 1. Problem Problem ALTERED NUTRITION RELATED LABS Etiology R/T ENDOCRINE DYSFUNCTION Signs/Symptoms: AEB HX DM AND GLUCOSE 363 Malnutrition Related to Morbid Obesity Malnutrition related to morbid obesity Weight 200% of ideal wt Query Text:(Any 1 Criteria met) Malnutrition related to morbid obesity Yes Intervention/Recommendation Comments [facility]. [facility], PUREED DIET ORDERED. 2. CONTNIUE ANTIHYPERGLYCEMIC MEDICATION FOR GLUCOSE CONTROL PER MD ORDER. Expected Outcomes/Goals Expected Outcomes/Goals 1. PO INTAKE TO MEET 75% OF NUTRITIONAL NEEDS. 2. MONITOR PO INTAKE, WT, NUTRITION RELATED LABS AND SKIN INTEGRITY. 3. F/U LOW RISK IN 7 DAYS, 01/18
--- NOTE | 2019-02-26 22:00 | Progress Notes ---
DATE: 02/26/2019 SUBJECTIVE: The patient in the hospital, remains easily agitated, irritated, demanding, withdrawn, ongoing resistive to care. Safety concerns. Yells at times. She is calm right now, but still pretty confused. She is pretty malodorous as well, poor ADLs. Sometimes refuses ADLs and is oppositional to ADLs, unpredictable, withdrawn. ASSESSMENT: The patient remains symptomatic, ongoing behavioral disturbances as noted. We are working really hard on placement, right now. There might be a potential bed, opening up a local long-term, but we are still looking. The patient really cannot take care of basic needs. JOB# [id number]
[2019-02-26] MEDS: Insulin Glargine 100 units/ml 10ml Vial SUBQ SCH (22:06)
[2019-02-27] MEDS: Levothyroxine 0.075 Mg Tab PO SCH (06:38)
[2019-02-27] MEDS: INSULIN LISPRO SLIDING SCALE 100 UNITS/ML UNIT SUBQ SCH ×4 (06:38→20:23)
[2019-02-27] MEDS: Fluticasone Propionate Nasal 1 SPR SPR NS SCH (09:00)
[2019-02-27] MEDS: Haldol Oral Sol.(concentrate) 10 mg/5 mL Udc PO SCH ×2 (10:00→16:40)
[2019-02-27] MEDS: Multivitamin Tab PO SCH (10:00)
[2019-02-27] MEDS: Vitamin B Complex w/Vitamin C Tab PO SCH (10:00)
[2019-02-27] MEDS: Guaifenesin DM 10 ML UDC PO SCH ×3 (10:00→20:22)
[2019-02-27] MEDS: APAP/Oxycodone 5/325mg Tab PO PRN (16:34)
[2019-02-27] MEDS: Atorvastatin Calcium 10 MG TAB PO SCH (20:21)
[2019-02-27] MEDS: Insulin Glargine 100 units/ml 10ml Vial SUBQ SCH (20:22)
--- NOTE | 2019-02-27 20:40 | Internal Medicine Prog Note ---
Internal Medicine Subjective - Subjective Service Date: 02/27/19 Patient seen and examined:: without staff (SHE FEELS WELL) Patient is:: awake, verbal, in bed, talking Per staff patient has:: no adverse event Internal Medicine Objective - Results Result Diagrams: 01/10/19 15:10 01/10/19 15:10 Recent Labs: Laboratory Last Values WBC 8.4 Th/cmm (4.8-10.8) 01/10/19 15:10 RBC 5.16 Mil/cmm (3.80-5.20) 01/10/19 15:10 Hgb 14.9 gm/dL (12-16) 01/10/19 15:10 Hct 44.3 % (41.0-60) 01/10/19 15:10 MCV 85.8 fl (81-100) 01/10/19 15:10 MCH 28.9 pg (27.0-31.0) 01/10/19 15:10 MCHC Differential 33.7 pg (28.0-36.0) 01/10/19 15:10 RDW 12.1 % (11.5-20.0) 01/10/19 15:10 Plt Count 291 Th/cmm (150-400) 01/10/19 15:10 MPV 7.3 fl 01/10/19 15:10 Neutrophils % 59.5 % (40.0-80.0) 01/10/19 15:10 Lymphocytes % 31.2 % (20.0-50.0) 01/10/19 15:10 Monocytes % 5.0 % (2.0-10.0) 01/10/19 15:10 Eosinophils % 4.3 % (0.0-5.0) 01/10/19 15:10 Basophils % 0.0 % (0.0-2.0) 01/10/19 15:10 Sodium 131 mEq/L (136-145) L 01/10/19 15:10 Potassium 4.2 mEq/L (3.5-5.1) 01/10/19 15:10 Chloride 96 mEq/L (98-107) L 01/10/19 15:10 Carbon Dioxide 23.9 mEq/L (21.0-31.0) 01/10/19 15:10 Anion Gap 15.3 (7.0-16.0) 01/10/19 15:10 BUN 18 mg/dL (7-25) 01/10/19 15:10 Creatinine 1.0 mg/dL (0.6-1.2) 01/10/19 15:10 Est GFR ( Amer) TNP 01/10/19 15:10 Est GFR (Non-Af Amer) TNP 01/10/19 15:10 BUN/Creatinine Ratio 18.0 01/10/19 15:10 Glucose 363 mg/dL (70-105) H 01/10/19 15:10 POC Glucose 207 MG/DL (70 - 105) H 02/18/19 11:47 Calcium 9.6 mg/dL (8.6-10.3) 01/10/19 15:10 Total Bilirubin 0.5 mg/dL (0.3-1.0) 01/10/19 15:10 AST 13 U/L (13-39) 01/10/19 15:10 ALT 14 U/L (7-52) 01/10/19 15:10 Alkaline Phosphatase 66 U/L (34-104) 01/10/19 15:10 Troponin I 0.04 ng/mL (0.01-0.05) 01/19/19 22:30 Total Protein 7.1 gm/dL (6.0-8.3) 01/10/19 15:10 Albumin 3.7 gm/dL (3.7-5.3) 01/10/19 15:10 Globulin 3.4 gm/dL 01/10/19 15:10 Albumin/Globulin Ratio 1.1 (1.0-1.8) 01/10/19 15:10 Triglycerides 417 mg/dL (<150) H 01/10/19 15:10 Cholesterol 188 mg/dL (<200) 01/10/19 15:10 LDL Cholesterol Direct 109 mg/dL (75-193) 01/10/19 15:10 HDL Cholesterol 27 mg/dL (23-92) 01/10/19 15:10 TSH 1.76 uIU/ml (0.34-5.60) 01/10/19 15:10 Urine Source CLEAN C 01/14/19 17:00 Urine Color YELLOW 01/14/19 17:00 Urine Clarity CLOUDY (CLEAR) H 01/14/19 17:00 Urine pH 6.5 (4.6 - 8.0) 01/14/19 17:00 Ur Specific [place] <= 1.005 (1.005-1.030) 01/14/19 17:00 Urine Protein NEGATIVE mg/dL (NEGATIVE) 01/14/19 17:00 Urine Glucose (UA) 100 mg/dL (NEGATIVE) H 01/14/19 17:00 Urine Ketones NEGATIVE mg/dL (NEGATIVE) 01/14/19 17:00 Urine Blood SMALL (NEGATIVE) H 01/14/19 17:00 Urine Nitrate NEGATIVE (NEGATIVE) 01/14/19 17:00 Urine Bilirubin NEGATIVE (NEGATIVE) 01/14/19 17:00 Urine Urobilinogen 0.2 E.U./dL (0.2 - 1.0) 01/14/19 17:00 Ur Leukocyte Esterase MODERATE (NEGATIVE) H 01/14/19 17:00 Urine RBC 2-5 /hpf (0-5) 01/14/19 17:00 Urine WBC 6-10 /hpf (0-5) H 01/14/19 17:00 Ur Epithelial Cells FEW /lpf (FEW) 01/14/19 17:00 Urine Bacteria MANY /hpf (NONE SEEN) H 01/14/19 17:00 RPR NONREACTIVE (NONREACTIVE) 01/10/19 15:10 - Physical Exam Vitals and I&O: Vital Signs Temp 98.5 F 02/27/19 20:28 Pulse 64 02/27/19 20:28 Resp 18 02/27/19 20:28 BP 148/69 02/27/19 20:28 Pulse Ox 95 02/27/19 20:28 Intake & Output 02/27/19 02/27/19 02/28/19 06:59 18:59 06:59 Intake Total 120 1200 240 Balance 120 1200 240 Intake: Oral 120 1200 240 Other: # Voids 3 3 2 # Bowel Movements 1 2 1 Active Medications: Current Medications Acetaminophen (Tylenol Extra Strength) 500 mg PO Q4H PRN PRN Reason: Pain or Fever >101 Stop: 03/12/19 00:41 Last Admin: 02/09/19 18:22 Dose: 500 mg Al Hydrox/Mg Hydrox/Simethicone (Maalox) 30 ml PO Q4HR PRN PRN Reason: GI DISTRESS Stop: 03/11/19 19:56 Albuterol/Ipratropium (Duoneb Neb) 3 ml HHN Q4H PRN PRN Reason: Wheezing Stop: 03/12/19 00:48 Last Admin: 02/18/19 19:24 Dose: 3 ml Aripiprazole (Abilify) 30 mg PO DAILY [facility]; Protocol Stop: 03/17/19 08:59 Last Admin: 02/27/19 10:00 Dose: 30 mg Aspirin (Ecotrin) 81 mg PO DAILY [facility] Stop: 03/12/19 08:59 Last Admin: 02/27/19 10:00 Dose: 81 mg Atorvastatin Calcium (Lipitor) 20 mg PO HS [facility]; Protocol Stop: 03/12/19 20:59 Last Admin: 02/26/19 21:45 Dose: Not Given Brimonidine Tartrate (Alphagan 0.1% Ophth Soln) 1 drop EACH EYE TID [facility] Stop: 03/12/19 08:59 Last Admin: 02/27/19 15:44 Dose: Not Given Carvedilol (Coreg) 12.5 mg PO BID [facility] Stop: 03/21/19 08:59 Last Admin: 02/27/19 16:34 Dose: 12.5 mg Docusate Sodium (Colace) 100 mg PO BID [facility] Stop: 03/12/19 08:59 Last Admin: 02/27/19 16:34 Dose: 100 mg Duloxetine HCl (Cymbalta) 60 mg PO DAILY [facility]; Protocol Stop: 04/16/19 13:59 Last Admin: 02/27/19 10:00 Dose: 60 mg Fluticasone Propionate (Flonase) 1 spr NS DAILY [facility] Stop: 03/12/19 08:59 Last Admin: 02/27/19 09:00 Dose: Not Given Glucagon (Glucagen) 1 mg IM PRN PRN PRN Reason: BS below 70 & not tolerate po Stop: 03/11/19 23:24 Guaifenesin/Dextromethorphan (Robitussin Dm) 10 ml PO TID [facility] Stop: 04/18/19 20:59 Last Admin: 02/27/19 14:50 Dose: Not Given Haloperidol Lactate (Haldol Concentrate 10mg/5ml Susp) 5 mg PO BID [facility]; Protocol Stop: 03/18/19 08:59 Last Admin: 02/27/19 16:40 Dose: 5 mg Hydralazine HCl (Apresoline) 10 mg PO BID [facility] Stop: 03/12/19 08:59 Last Admin: 02/27/19 16:33 Dose: 10 mg Ibuprofen (Motrin) 600 mg PO Q8H PRN PRN Reason: breakthrough pain Stop: 03/12/19 00:35 Last Admin: 02/20/19 16:51 Dose: 600 mg Insulin Glargine (Lantus Insulin) 26 units SUBQ HS [facility] Stop: 03/12/19 20:59 Last Admin: 02/26/19 22:06 Dose: Not Given Insulin Human Lispro (Humalog Insulin Sliding Scale) 0 units SUBQ ACHS [facility]; Protocol Stop: 03/11/19 20:59 Last Admin: 02/27/19 17:05 Dose: 2 units Isosorbide Dinitrate (Isordil) 10 mg PO Q8HR [facility] Stop: 03/12/19 04:59 Last Admin: 02/27/19 14:49 Dose: Not Given Latanoprost (Xalatan 0.005% Oph Soln) 1 drop EACH EYE HS [facility] Stop: 03/12/19 20:59 Last Admin: 02/26/19 21:48 Dose: Not Given Levothyroxine Sodium (Synthroid) 0.075 mg PO QDAC [facility] Stop: 03/12/19 07:29 Last Admin: 02/27/19 06:38 Dose: 0.075 mg Loratadine (Claritin) 10 mg PO DAILY [facility] Stop: 03/12/19 08:59 Last Admin: 02/27/19 10:00 Dose: 10 mg Losartan Potassium (Cozaar) 50 mg PO DAILY [facility] Stop: 03/12/19 08:59 Last Admin: 02/27/19 11:31 Dose: 50 mg Magnesium Hydroxide (Milk Of Magnesia) 30 ml PO HS PRN PRN Reason: Constipation Multivitamins/Vitamin C (Theragran) 1 tab PO DAILY [facility] Stop: 03/12/19 08:59 Last Admin: 02/27/19 10:00 Dose: 1 tab Naproxen (Naprosyn) 500 mg PO BIDWM CAL Stop: 03/20/19 17:59 Last Admin: 02/27/19 17:33 Dose: Not Given Nitroglycerin (Nitrostat) 0.4 mg SL Q5MIN PRN PRN Reason: CHEST PAIN Stop: 03/11/19 23:24 Last Admin: 02/12/19 06:52 Dose: 0.4 mg Oxycodone/Acetaminophen (Percocet 5/325mg Oral Tab) 1 tab PO Q4H PRN PRN Reason: severe pain (7-10) Stop: 04/16/19 11:01 Last Admin: 02/27/19 16:34 Dose: 1 tab Senna (Senna) 17.2 mg PO HS [facility] Stop: 03/12/19 20:59 Last Admin: 02/26/19 21:50 Dose: Not Given Sodium Phosphate (Fleet Enema) 135 ml RC DAILY PRN PRN Reason: Constipation Stop: 03/11/19 23:24 Vitamin B Complex/Vit C/Folic Acid (Vitamin B Complex W/Vitamin C) 1 tab PO DAILY [facility] Stop: 03/12/19 08:59 Last Admin: 02/27/19 10:00 Dose: 1 tab Zolpidem Tartrate (Ambien) 5 mg PO HS PRN PRN Reason: Insomnia Stop: 04/16/19 10:58 Last Admin: 02/25/19 21:05 Dose: 5 mg General: alert HEENT: NC/AT, PERRLA, EOMI, anicteric sclerae, throat clear Neck: Supple, No JVD, No thyromegaly, +2 carotid pulse wo bruit, No LAD Lungs: CTAB Cardiovascular: RRR, Normal S1, Normal S2, without murmur Abdomen: soft, non-tender, non-distended Extremities: clear Neurological: no change Internal Medicine Assmt/Plan - Assessment Assessment: 1.DM. 2.HTN. 3.HYPOTHYROIDISM. 5.PSYCHOSIS - Plan Plan: CONTINUE ON CURRENT MEDICATION AND DIET. Nutritional Asmnt/Malnutr-PDOC - Dietary Evaluation Malnutrition Findings (Please click <Entered> for more info): Nutritional Asmnt/Malnutrition Start: 01/11/19 12: 41 Text: Status: Complete Freq: Protocol: Document 01/11/19 12:41 AXEL (Rec: 01/11/19 12:45 [email or web address] [email or web address]) Nutritional Asmnt/Malnutrition Patient General Information Nutritional Screening Consult Diagnosis PSYCHOSIS Pertinent Medical Hx/Surgical Hx HTN, DM, HYPOTHYROIDISM, PSYCHOSIS, DJD Subjective Information IA CONSULT: DM PT IS A 78 YEAR OLD FEMALE FROM [facility] ADMITTED ON 01/10 D/T AGGRESSIVE BEHAVIOR. PT WAS HERE RECENTLY, DISCHARGED ON . PER MEAL/NUTRITION ACTIVITY RECORD, PT TYPICALLY ATE 100% MEALS. HT: 59 WT: 310 LB (141 KG) ABW: 186 LB (84.66 KG) BMI: 45.78 (OBESE III) GI: WNL, NON-TENDER, LARGE, ROUND BM: NOT NOTED I/O: 240/NOT NOTED SKIN: SKIN BREAKDOWN TO BUTTOCKS AREA LUIS: NOT NOTED DIET ORDER: CCHO 45GM, PUREED ESTIMATED ENERGY NEEDS: (OBESE III, ABW) 6259-1189 KCALS (20-25 KCALS/ KG) 68-85 G PRO (0.8-1.0 G/KG) 0439-4327 ML (25-30 ML/KG) PT PO INTAKE: 100% SNACK PROVIDED. Current Diet Order/ Nutrition Support CCHO 45GM, PUREED Pertinent Medications MAALOX (PRN), ALBUTEROL (PRN), LIPITOR, COREG, COLACE, GLUCAGON (PRN), LANTUS, SYNTHROID, INS-SS, COZAAR, MOM (PRN), THEREGRAN, SENNA, FLEET ENEMA (PRN), VIT B COMLPEX WITH VIT C Pertinent Labs 01/10: NA 131, GLUCOSE 363 POC GLUCOSE (LAST 24 HOURS): 257, 250 Nutritional Hx/Data Height 1.75 m Height (Calculated Centimeters) 175.3 Current Weight (lbs) 140.614 kg Weight (Calculated Kilograms) 140.6 Weight (Calculated Grams) 690909.6 [place] Body Weight 145 % [place] Body Weight 214 Body Mass Index (BMI) 45.8 Weight Status Morbidly Obese GI Symptoms GI Symptoms None Last BM NOT NOTED Skin Integrity/Comment: SKIN BREAKDOWN TO BUTTOCKS AREA LUIS: NOT NOTED Current %PO Good (75-100%) Estimated Nutritional Goals BEE in Kcals: Adj wt of IBW Calories/Kcals/Kg 20-25 Kcals Calculated 6814-1385 Protein: Adj wt of IBW Protein g/k.8-1.0 Protein Calculated 68-85 Fluid: ml 5184-0315 ML (25-30 ML/KG) Nutritional Problem 1. Problem Problem ALTERED NUTRITION RELATED LABS Etiology R/T ENDOCRINE DYSFUNCTION Signs/Symptoms: AEB HX DM AND GLUCOSE 363 Malnutrition Related to Morbid Obesity Malnutrition related to morbid obesity Weight 200% of ideal wt Query Text:(Any 1 Criteria met) Malnutrition related to morbid obesity Yes Intervention/Recommendation Comments 1. CONTINUE WITH [facility] 45GM, PUREED DIET ORDERED. 2. CONTNIUE ANTIHYPERGLYCEMIC MEDICATION FOR GLUCOSE CONTROL PER MD ORDER. Expected Outcomes/Goals Expected Outcomes/Goals 1. PO INTAKE TO MEET 75% OF NUTRITIONAL NEEDS. 2. MONITOR PO INTAKE, WT, NUTRITION RELATED LABS AND SKIN INTEGRITY. 3. F/U LOW RISK IN 7 DAYS, 01/18
--- NOTE | 2019-02-28 02:07 | Progress Notes ---
DATE: 02/27/2019 SUBJECTIVE: The patient slept for about 6 hours, still guarded, hostile, shouting at staff, cursing at staff, upset. She is still in the hospital, but we have nowhere to send her. We will attempt to contact the local [place] [facility] to see if they will take her. Still demanding, guarded, ongoing safety concerns. She cannot take care of her basic needs. MEDICATIONS: Reviewed. PLAN: We will continue to monitor. We are working hard on placement. JOB# [id number]
[2019-02-28] MEDS: Levothyroxine 0.075 Mg Tab PO SCH (06:49)
[2019-02-28] MEDS: INSULIN LISPRO SLIDING SCALE 100 UNITS/ML UNIT SUBQ SCH ×4 (07:03→21:52)
[2019-02-28] MEDS: Guaifenesin DM 10 ML UDC PO SCH ×3 (09:02→21:46)
[2019-02-28] MEDS: Haldol Oral Sol.(concentrate) 10 mg/5 mL Udc PO SCH ×2 (09:02→16:47)
[2019-02-28] MEDS: Fluticasone Propionate Nasal 1 SPR SPR NS SCH (09:02)
[2019-02-28] MEDS: Vitamin B Complex w/Vitamin C Tab PO SCH (09:04)
[2019-02-28] MEDS: Multivitamin Tab PO SCH (09:04)
[2019-02-28] MEDS: APAP/Oxycodone 5/325mg Tab PO PRN ×3 (10:43→21:46)
[2019-02-28] MEDS: Albuterol/Ipratropium Neb 3 ML AERS HHN PRN ×2 (11:49→18:29)
--- NOTE | 2019-02-28 18:28 | Internal Medicine Prog Note ---
Internal Medicine Subjective - Subjective Service Date: 02/28/19 Patient seen and examined:: without staff (SHE FEELS BETTER) Patient is:: awake, verbal, in bed, talking Per staff patient has:: no adverse event Internal Medicine Objective - Results Result Diagrams: 01/10/19 15:10 01/10/19 15:10 Recent Labs: Laboratory Last Values WBC 8.4 Th/cmm (4.8-10.8) 01/10/19 15:10 RBC 5.16 Mil/cmm (3.80-5.20) 01/10/19 15:10 Hgb 14.9 gm/dL (12-16) 01/10/19 15:10 Hct 44.3 % (41.0-60) 01/10/19 15:10 MCV 85.8 fl (81-100) 01/10/19 15:10 MCH 28.9 pg (27.0-31.0) 01/10/19 15:10 MCHC Differential 33.7 pg (28.0-36.0) 01/10/19 15:10 RDW 12.1 % (11.5-20.0) 01/10/19 15:10 Plt Count 291 Th/cmm (150-400) 01/10/19 15:10 MPV 7.3 fl 01/10/19 15:10 Neutrophils % 59.5 % (40.0-80.0) 01/10/19 15:10 Lymphocytes % 31.2 % (20.0-50.0) 01/10/19 15:10 Monocytes % 5.0 % (2.0-10.0) 01/10/19 15:10 Eosinophils % 4.3 % (0.0-5.0) 01/10/19 15:10 Basophils % 0.0 % (0.0-2.0) 01/10/19 15:10 Sodium 131 mEq/L (136-145) L 01/10/19 15:10 Potassium 4.2 mEq/L (3.5-5.1) 01/10/19 15:10 Chloride 96 mEq/L (98-107) L 01/10/19 15:10 Carbon Dioxide 23.9 mEq/L (21.0-31.0) 01/10/19 15:10 Anion Gap 15.3 (7.0-16.0) 01/10/19 15:10 BUN 18 mg/dL (7-25) 01/10/19 15:10 Creatinine 1.0 mg/dL (0.6-1.2) 01/10/19 15:10 Est GFR ( Amer) TNP 01/10/19 15:10 Est GFR (Non-Af Amer) TNP 01/10/19 15:10 BUN/Creatinine Ratio 18.0 01/10/19 15:10 Glucose 363 mg/dL (70-105) H 01/10/19 15:10 POC Glucose 245 MG/DL (70 - 105) H 02/28/19 16:08 Calcium 9.6 mg/dL (8.6-10.3) 01/10/19 15:10 Total Bilirubin 0.5 mg/dL (0.3-1.0) 01/10/19 15:10 AST 13 U/L (13-39) 01/10/19 15:10 ALT 14 U/L (7-52) 01/10/19 15:10 Alkaline Phosphatase 66 U/L (34-104) 01/10/19 15:10 Troponin I 0.04 ng/mL (0.01-0.05) 01/19/19 22:30 Total Protein 7.1 gm/dL (6.0-8.3) 01/10/19 15:10 Albumin 3.7 gm/dL (3.7-5.3) 01/10/19 15:10 Globulin 3.4 gm/dL 01/10/19 15:10 Albumin/Globulin Ratio 1.1 (1.0-1.8) 01/10/19 15:10 Triglycerides 417 mg/dL (<150) H 01/10/19 15:10 Cholesterol 188 mg/dL (<200) 01/10/19 15:10 LDL Cholesterol Direct 109 mg/dL (75-193) 01/10/19 15:10 HDL Cholesterol 27 mg/dL (23-92) 01/10/19 15:10 TSH 1.76 uIU/ml (0.34-5.60) 01/10/19 15:10 Urine Source CLEAN C 01/14/19 17:00 Urine Color YELLOW 01/14/19 17:00 Urine Clarity CLOUDY (CLEAR) H 01/14/19 17:00 Urine pH 6.5 (4.6 - 8.0) 01/14/19 17:00 Ur Specific [place] <= 1.005 (1.005-1.030) 01/14/19 17:00 Urine Protein NEGATIVE mg/dL (NEGATIVE) 01/14/19 17:00 Urine Glucose (UA) 100 mg/dL (NEGATIVE) H 01/14/19 17:00 Urine Ketones NEGATIVE mg/dL (NEGATIVE) 01/14/19 17:00 Urine Blood SMALL (NEGATIVE) H 01/14/19 17:00 Urine Nitrate NEGATIVE (NEGATIVE) 01/14/19 17:00 Urine Bilirubin NEGATIVE (NEGATIVE) 01/14/19 17:00 Urine Urobilinogen 0.2 E.U./dL (0.2 - 1.0) 01/14/19 17:00 Ur Leukocyte Esterase MODERATE (NEGATIVE) H 01/14/19 17:00 Urine RBC 2-5 /hpf (0-5) 01/14/19 17:00 Urine WBC 6-10 /hpf (0-5) H 01/14/19 17:00 Ur Epithelial Cells FEW /lpf (FEW) 01/14/19 17:00 Urine Bacteria MANY /hpf (NONE SEEN) H 01/14/19 17:00 RPR NONREACTIVE (NONREACTIVE) 01/10/19 15:10 - Physical Exam Vitals and I&O: Vital Signs Temp 97.9 F 02/28/19 14:00 Pulse 67 02/28/19 17:50 Resp 20 02/28/19 14:00 BP 150/74 02/28/19 17:50 Pulse Ox 95 02/28/19 14:00 Intake & Output 02/27/19 02/28/19 02/28/19 18:59 06:59 18:59 Intake Total 6478 072 0978 Balance 9738 602 3488 Intake: Oral 2493 903 4667 Other: # Voids 3 3 4 # Bowel Movements 2 0 0 Active Medications: Current Medications Acetaminophen (Tylenol Extra Strength) 500 mg PO Q4H PRN PRN Reason: Pain or Fever >101 Stop: 03/12/19 00:41 Last Admin: 02/09/19 18:22 Dose: 500 mg Al Hydrox/Mg Hydrox/Simethicone (Maalox) 30 ml PO Q4HR PRN PRN Reason: GI DISTRESS Stop: 03/11/19 19:56 Albuterol/Ipratropium (Duoneb Neb) 3 ml HHN Q4H PRN PRN Reason: Wheezing Stop: 03/12/19 00:48 Last Admin: 02/28/19 11:49 Dose: 3 ml Aripiprazole (Abilify) 30 mg PO DAILY [facility]; Protocol Stop: 03/17/19 08:59 Last Admin: 02/28/19 09:01 Dose: 30 mg Aspirin (Ecotrin) 81 mg PO DAILY [facility] Stop: 03/12/19 08:59 Last Admin: 02/28/19 09:01 Dose: 81 mg Atorvastatin Calcium (Lipitor) 20 mg PO HS [facility]; Protocol Stop: 03/12/19 20:59 Last Admin: 02/27/19 20:21 Dose: 20 mg Brimonidine Tartrate (Alphagan 0.1% Ophth Soln) 1 drop EACH EYE TID [facility] Stop: 03/12/19 08:59 Last Admin: 02/28/19 14:00 Dose: 1 drop Calcium/Vitamin D (Oscal W/Vitamin D) 1 tab PO DAILY [facility] Stop: 04/30/19 08:59 Carvedilol (Coreg) 12.5 mg PO BID [facility] Stop: 03/21/19 08:59 Last Admin: 02/28/19 17:50 Dose: 12.5 mg Docusate Sodium (Colace) 100 mg PO BID [facility] Stop: 03/12/19 08:59 Last Admin: 02/28/19 16:47 Dose: 100 mg Duloxetine HCl (Cymbalta) 60 mg PO DAILY [facility]; Protocol Stop: 04/16/19 13:59 Last Admin: 02/28/19 09:02 Dose: 60 mg Fluticasone Propionate (Flonase) 1 spr NS DAILY [facility] Stop: 03/12/19 08:59 Last Admin: 02/28/19 09:02 Dose: Not Given Glucagon (Glucagen) 1 mg IM PRN PRN PRN Reason: BS below 70 & not tolerate po Stop: 03/11/19 23:24 Guaifenesin/Dextromethorphan (Robitussin Dm) 10 ml PO TID [facility] Stop: 04/18/19 20:59 Last Admin: 02/28/19 14:00 Dose: 10 ml Haloperidol Lactate (Haldol Concentrate 10mg/5ml Susp) 5 mg PO BID [facility]; Protocol Stop: 03/18/19 08:59 Last Admin: 02/28/19 16:47 Dose: 5 mg Hydralazine HCl (Apresoline) 10 mg PO BID [facility] Stop: 03/12/19 08:59 Last Admin: 02/28/19 16:47 Dose: 10 mg Ibuprofen (Motrin) 600 mg PO Q8H PRN PRN Reason: breakthrough pain Stop: 03/12/19 00:35 Last Admin: 02/20/19 16:51 Dose: 600 mg Insulin Glargine (Lantus Insulin) 26 units SUBQ HS [facility] Stop: 03/12/19 20:59 Last Admin: 02/27/19 20:22 Dose: 26 units Insulin Human Lispro (Humalog Insulin Sliding Scale) 0 units SUBQ [facility]; Protocol Stop: 03/11/19 20:59 Last Admin: 02/28/19 17:51 Dose: 2 units Isosorbide Dinitrate (Isordil) 10 mg PO Q8HR [facility] Stop: 03/12/19 04:59 Last Admin: 02/28/19 14:00 Dose: 10 mg Latanoprost (Xalatan 0.005% Ophth Soln) 1 drop EACH EYE HS [facility] Stop: 03/12/19 20:59 Last Admin: 02/27/19 20:26 Dose: 1 drop Levothyroxine Sodium (Synthroid) 0.075 mg PO QDAC [facility] Stop: 03/12/19 07:29 Last Admin: 02/28/19 06:49 Dose: 0.075 mg Loratadine (Claritin) 10 mg PO DAILY [facility] Stop: 03/12/19 08:59 Last Admin: 02/28/19 09:04 Dose: 10 mg Losartan Potassium (Cozaar) 50 mg PO DAILY [facility] Stop: 03/12/19 08:59 Last Admin: 02/28/19 09:04 Dose: 50 mg Magnesium Hydroxide (Milk Of Magnesia) 30 ml PO HS PRN PRN Reason: Constipation Multivitamins/Vitamin C (Theragran) 1 tab PO DAILY [facility] Stop: 03/12/19 08:59 Last Admin: 02/28/19 09:04 Dose: 1 tab Naproxen (Naprosyn) 500 mg PO BIDWM [facility] Stop: 03/20/19 17:59 Last Admin: 02/28/19 17:50 Dose: Not Given Nitroglycerin (Nitrostat) 0.4 mg SL Q5MIN PRN PRN Reason: CHEST PAIN Stop: 03/11/19 23:24 Last Admin: 02/12/19 06:52 Dose: 0.4 mg Oxycodone/Acetaminophen (Percocet 5/325mg Oral Tab) 1 tab PO Q4H PRN PRN Reason: severe pain (7-10) Stop: 04/16/19 11:01 Last Admin: 02/28/19 15:40 Dose: 1 tab Senna (Senna) 17.2 mg PO HS [facility] Stop: 03/12/19 20:59 Last Admin: 02/27/19 20:26 Dose: 17.2 mg Sodium Phosphate (Fleet Enema) 135 ml RC DAILY PRN PRN Reason: Constipation Stop: 03/11/19 23:24 Vitamin B Complex/Vit C/Folic Acid (Vitamin B Complex W/Vitamin C) 1 tab PO DAILY [facility] Stop: 03/12/19 08:59 Last Admin: 02/28/19 09:04 Dose: 1 tab Zolpidem Tartrate (Ambien) 5 mg PO HS PRN PRN Reason: Insomnia Stop: 04/16/19 10:58 Last Admin: 02/25/19 21:05 Dose: 5 mg General: alert HEENT: NC/AT, PERRLA, EOMI, anicteric sclerae, throat clear Neck: Supple, No JVD, No thyromegaly, +2 carotid pulse wo bruit, No LAD Lungs: CTAB Cardiovascular: RRR, Normal S1, Normal S2, without murmur Abdomen: soft, non-tender, non-distended Extremities: clear Neurological: no change Internal Medicine Assmt/Plan - Assessment Assessment: 1.DM. 2.HTN. 3.HYPOTHYROIDISM. 5.PSYCHOSIS - Plan Plan: CONTINUE ON CURRENT MEDICATION AND DIET. Nutritional Asmnt/Malnutr-PDOC - Dietary Evaluation Malnutrition Findings (Please click <Entered> for more info): Nutritional Asmnt/Malnutrition Start: 01/11/19 12: 41 Text: Status: Complete Freq: Protocol: Document 01/11/19 12:41 AXEL (Rec: 01/11/19 12:45 [email or web address]) Nutritional Asmnt/Malnutrition Patient General Information Nutritional Screening Consult Diagnosis PSYCHOSIS Pertinent Medical Hx/Surgical Hx HTN, DM, HYPOTHYROIDISM, PSYCHOSIS, DJD Subjective Information IA CONSULT: DM PT IS A 78 YEAR OLD FEMALE [facility] AD[facility] ON 01/10 D/T AGGRESSIVE BEHAVIOR. PT WAS HERE RECENTLY, DISCHARGED ON . PER MEAL/NUTRITION ACTIVITY RECORD, PT TYPICALLY ATE 100% MEALS. HT: 59 WT: 310 LB (141 KG) ABW: 186 LB (84.66 KG) BMI: 45.78 (OBESE III) GI: WNL, NON-TENDER, LARGE, ROUND BM: NOT NOTED I/O: 240/NOT NOTED SKIN: SKIN BREAKDOWN TO BUTTOCKS AREA LUIS: NOT NOTED DIET ORDER: CCHO 45GM, PUREED ESTIMATED ENERGY NEEDS: (OBESE III, ABW) 6308-7034 KCALS (20-25 KCALS/ KG) 68-85 G PRO (0.8-1.0 G/KG) 0438-0262 ML (25-30 ML/KG) PT PO INTAKE: 100% SNACK PROVIDED. Current Diet Order/ Nutrition Support CCHO 45GM, PUREED Pertinent Medications MAALOX (PRN), ALBUTEROL (PRN), LIPITOR, COREG, COLACE, GLUCAGON (PRN), LANTUS, SYNTHROID, INS-SS, COZAAR, MOM (PRN), THEREGRAN, SENNA, FLEET ENEMA (PRN), VIT B COMLPEX WITH VIT C Pertinent Labs 01/10: NA 131, GLUCOSE 363 POC GLUCOSE (LAST 24 HOURS): 257, 250 Nutritional Hx/Data Height 1.75 m Height (Calculated Centimeters) 175.3 Current Weight (lbs) 140.614 kg Weight (Calculated Kilograms) 140.6 Weight (Calculated Grams) 250214.6 [place] Body Weight 145 % [place] Body Weight 214 Body Mass Index (BMI) 45.8 Weight Status Morbidly Obese GI Symptoms GI Symptoms None Last BM NOT NOTED Skin Integrity/Comment: SKIN BREAKDOWN TO BUTTOCKS AREA LUIS: NOT NOTED Current %PO Good (75-100%) Estimated Nutritional Goals BEE in Kcals: Adj wt of IBW Calories/Kcals/Kg 20-25 Kcals Calculated 5249-0517 Protein: Adj wt of IBW Protein g/k.8-1.0 Protein Calculated 68-85 Fluid: ml 6984-3210 ML (25-30 ML/KG) Nutritional Problem 1. Problem Problem ALTERED NUTRITION RELATED LABS Etiology R/T ENDOCRINE DYSFUNCTION Signs/Symptoms: AEB HX DM AND GLUCOSE 363 Malnutrition Related to Morbid Obesity Malnutrition related to morbid obesity Weight 200% of ideal wt Query Text:(Any 1 Criteria met) Malnutrition related to morbid obesity Yes Intervention/Recommendation Comments 1. CONTINUE WITH [facility] 45GM, PUREED DIET ORDERED. 2. CONTNIUE ANTIHYPERGLYCEMIC MEDICATION FOR GLUCOSE CONTROL PER MD ORDER. Expected Outcomes/Goals Expected Outcomes/Goals 1. PO INTAKE TO MEET 75% OF NUTRITIONAL NEEDS. 2. MONITOR PO INTAKE, WT, NUTRITION RELATED LABS AND SKIN INTEGRITY. 3. F/U LOW RISK IN 7 DAYS, 01/18
[2019-02-28] MEDS: Atorvastatin Calcium 10 MG TAB PO SCH (21:46)
[2019-02-28] MEDS: Insulin Glargine 100 units/ml 10ml Vial SUBQ SCH (21:51)
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
[2019-03-01] MEDS: Albuterol/Ipratropium Neb 3 ML AERS HHN PRN (06:53)
[2019-03-01] MEDS: Levothyroxine 0.075 Mg Tab PO SCH (06:55)
[2019-03-01] MEDS: INSULIN LISPRO SLIDING SCALE 100 UNITS/ML UNIT SUBQ SCH ×4 (06:56→21:07)
[2019-03-01] MEDS: Guaifenesin DM 10 ML UDC PO SCH ×3 (09:16→21:05)
[2019-03-01] MEDS: Haldol Oral Sol.(concentrate) 10 mg/5 mL Udc PO SCH ×2 (09:16→18:09)
[2019-03-01] MEDS: Fluticasone Propionate Nasal 1 SPR SPR NS SCH (09:17)
[2019-03-01] MEDS: Calcium Carb/Vit D 500 mg/200 U Tab PO SCH (09:18)
[2019-03-01] MEDS: Multivitamin Tab PO SCH (09:18)
[2019-03-01] MEDS: Vitamin B Complex w/Vitamin C Tab PO SCH (09:19)
[2019-03-01] MEDS: Atorvastatin Calcium 10 MG TAB PO SCH (21:05)
[2019-03-01] MEDS: APAP/Oxycodone 5/325mg Tab PO PRN (21:09)
[2019-03-01] MEDS: Insulin Glargine 100 units/ml 10ml Vial SUBQ SCH (22:00)
--- NOTE | 2019-03-01 22:25 | Internal Medicine Prog Note ---
Internal Medicine Subjective - Subjective Service Date: 03/01/19 Patient seen and examined:: without staff (SHE IS DOING WELL) Patient is:: awake, verbal, in bed, talking Per staff patient has:: no adverse event Internal Medicine Objective - Results Result Diagrams: 01/10/19 15:10 01/10/19 15:10 Recent Labs: Laboratory Last Values WBC 8.4 Th/cmm (4.8-10.8) 01/10/19 15:10 RBC 5.16 Mil/cmm (3.80-5.20) 01/10/19 15:10 Hgb 14.9 gm/dL (12-16) 01/10/19 15:10 Hct 44.3 % (41.0-60) 01/10/19 15:10 MCV 85.8 fl (81-100) 01/10/19 15:10 MCH 28.9 pg (27.0-31.0) 01/10/19 15:10 MCHC Differential 33.7 pg (28.0-36.0) 01/10/19 15:10 RDW 12.1 % (11.5-20.0) 01/10/19 15:10 Plt Count 291 Th/cmm (150-400) 01/10/19 15:10 MPV 7.3 fl 01/10/19 15:10 Neutrophils % 59.5 % (40.0-80.0) 01/10/19 15:10 Lymphocytes % 31.2 % (20.0-50.0) 01/10/19 15:10 Monocytes % 5.0 % (2.0-10.0) 01/10/19 15:10 Eosinophils % 4.3 % (0.0-5.0) 01/10/19 15:10 Basophils % 0.0 % (0.0-2.0) 01/10/19 15:10 Sodium 131 mEq/L (136-145) L 01/10/19 15:10 Potassium 4.2 mEq/L (3.5-5.1) 01/10/19 15:10 Chloride 96 mEq/L (98-107) L 01/10/19 15:10 Carbon Dioxide 23.9 mEq/L (21.0-31.0) 01/10/19 15:10 Anion Gap 15.3 (7.0-16.0) 01/10/19 15:10 BUN 18 mg/dL (7-25) 01/10/19 15:10 Creatinine 1.0 mg/dL (0.6-1.2) 01/10/19 15:10 Est GFR ( Amer) TNP 01/10/19 15:10 Est GFR (Non-Af Amer) TNP 01/10/19 15:10 BUN/Creatinine Ratio 18.0 01/10/19 15:10 Glucose 363 mg/dL (70-105) H 01/10/19 15:10 POC Glucose 189 MG/DL (70 - 105) H 03/01/19 20:34 Calcium 9.6 mg/dL (8.6-10.3) 01/10/19 15:10 Total Bilirubin 0.5 mg/dL (0.3-1.0) 01/10/19 15:10 AST 13 U/L (13-39) 01/10/19 15:10 ALT 14 U/L (7-52) 01/10/19 15:10 Alkaline Phosphatase 66 U/L (34-104) 01/10/19 15:10 Troponin I 0.04 ng/mL (0.01-0.05) 01/19/19 22:30 Total Protein 7.1 gm/dL (6.0-8.3) 01/10/19 15:10 Albumin 3.7 gm/dL (3.7-5.3) 01/10/19 15:10 Globulin 3.4 gm/dL 01/10/19 15:10 Albumin/Globulin Ratio 1.1 (1.0-1.8) 01/10/19 15:10 Triglycerides 417 mg/dL (<150) H 01/10/19 15:10 Cholesterol 188 mg/dL (<200) 01/10/19 15:10 LDL Cholesterol Direct 109 mg/dL (75-193) 01/10/19 15:10 HDL Cholesterol 27 mg/dL (23-92) 01/10/19 15:10 TSH 1.76 uIU/ml (0.34-5.60) 01/10/19 15:10 Urine Source CLEAN C 01/14/19 17:00 Urine Color YELLOW 01/14/19 17:00 Urine Clarity CLOUDY (CLEAR) H 01/14/19 17:00 Urine pH 6.5 (4.6 - 8.0) 01/14/19 17:00 Ur Specific [place] <= 1.005 (1.005-1.030) 01/14/19 17:00 Urine Protein NEGATIVE mg/dL (NEGATIVE) 01/14/19 17:00 Urine Glucose (UA) 100 mg/dL (NEGATIVE) H 01/14/19 17:00 Urine Ketones NEGATIVE mg/dL (NEGATIVE) 01/14/19 17:00 Urine Blood SMALL (NEGATIVE) H 01/14/19 17:00 Urine Nitrate NEGATIVE (NEGATIVE) 01/14/19 17:00 Urine Bilirubin NEGATIVE (NEGATIVE) 01/14/19 17:00 Urine Urobilinogen 0.2 E.U./dL (0.2 - 1.0) 01/14/19 17:00 Ur Leukocyte Esterase MODERATE (NEGATIVE) H 01/14/19 17:00 Urine RBC 2-5 /hpf (0-5) 01/14/19 17:00 Urine WBC 6-10 /hpf (0-5) H 01/14/19 17:00 Ur Epithelial Cells FEW /lpf (FEW) 01/14/19 17:00 Urine Bacteria MANY /hpf (NONE SEEN) H 01/14/19 17:00 RPR NONREACTIVE (NONREACTIVE) 01/10/19 15:10 - Physical Exam Vitals and I&O: Vital Signs Temp 98.1 F 03/01/19 20:15 Pulse 64 03/01/19 21:06 Resp 18 03/01/19 20:45 BP 132/73 03/01/19 21:06 Pulse Ox 96 03/01/19 20:45 Intake & Output 03/01/19 03/01/19 03/02/19 06:59 18:59 06:59 Intake Total 950 240 Output Total 1 Balance 950 239 Intake: Oral 950 240 Output: Urine/Stool Mix 1 Other: # Voids 5 1 # Bowel Movements 0 1 Active Medications: Current Medications Acetaminophen (Tylenol Extra Strength) 500 mg PO Q4H PRN PRN Reason: Pain or Fever >101 Stop: 03/12/19 00:41 Last Admin: 02/09/19 18:22 Dose: 500 mg Al Hydrox/Mg Hydrox/Simethicone (Maalox) 30 ml PO Q4HR PRN PRN Reason: GI DISTRESS Stop: 03/11/19 19:56 Albuterol/Ipratropium (Duoneb Neb) 3 ml HHN Q4H PRN PRN Reason: Wheezing Stop: 03/12/19 00:48 Last Admin: 03/01/19 06:53 Dose: 3 ml Aripiprazole (Abilify) 30 mg PO DAILY [facility]; Protocol Stop: 03/17/19 08:59 Last Admin: 03/01/19 09:17 Dose: 30 mg Aspirin (Ecotrin) 81 mg PO DAILY [facility] Stop: 03/12/19 08:59 Last Admin: 03/01/19 09:17 Dose: 81 mg Atorvastatin Calcium (Lipitor) 20 mg PO HS [facility]; Protocol Stop: 03/12/19 20:59 Last Admin: 03/01/19 21:05 Dose: 20 mg Brimonidine Tartrate (Alphagan 0.1% Ophth Soln) 1 drop EACH EYE TID [facility] Stop: 03/12/19 08:59 Last Admin: 03/01/19 22:00 Dose: 1 drop Calcium/Vitamin D (Oscal W/Vitamin D) 1 tab PO DAILY [facility] Stop: 04/30/19 08:59 Last Admin: 03/01/19 09:18 Dose: 1 tab Carvedilol (Coreg) 12.5 mg PO BID [facility] Stop: 03/21/19 08:59 Last Admin: 03/01/19 18:08 Dose: 12.5 mg Docusate Sodium (Colace) 100 mg PO BID [facility] Stop: 03/12/19 08:59 Last Admin: 03/01/19 17:52 Dose: Not Given Duloxetine HCl (Cymbalta) 60 mg PO DAILY [facility]; Protocol Stop: 04/16/19 13:59 Last Admin: 03/01/19 09:17 Dose: 60 mg Fluticasone Propionate (Flonase) 1 spr NS DAILY [facility] Stop: 03/12/19 08:59 Last Admin: 03/01/19 09:17 Dose: 1 spr Glucagon (Glucagen) 1 mg IM PRN PRN PRN Reason: BS below 70 & not tolerate po Stop: 03/11/19 23:24 Guaifenesin/Dextromethorphan (Robitussin Dm) 10 ml PO TID [facility] Stop: 04/18/19 20:59 Last Admin: 03/01/19 21:05 Dose: 10 ml Haloperidol Lactate (Haldol Concentrate 10mg/5ml Susp) 5 mg PO BID [facility]; Protocol Stop: 03/18/19 08:59 Last Admin: 03/01/19 18:09 Dose: 5 mg Hydralazine HCl (Apresoline) 10 mg PO BID [facility] Stop: 03/12/19 08:59 Last Admin: 03/01/19 18:10 Dose: Not Given Ibuprofen (Motrin) 600 mg PO Q8H PRN PRN Reason: breakthrough pain Stop: 03/12/19 00:35 Last Admin: 02/20/19 16:51 Dose: 600 mg Insulin Glargine (Lantus Insulin) 26 units SUBQ HS [facility] Stop: 03/12/19 20:59 Last Admin: 03/01/19 22:00 Dose: 26 units Insulin Human Lispro (Humalog Insulin Sliding Scale) 0 units SUBQ [facility]; Protocol Stop: 03/11/19 20:59 Last Admin: 03/01/19 21:07 Dose: Not Given Isosorbide Dinitrate (Isordil) 10 mg PO Q8HR [facility] Stop: 03/12/19 04:59 Last Admin: 03/01/19 21:06 Dose: 10 mg Latanoprost (Xalatan 0.005% Oph Soln) 1 drop EACH EYE HS [facility] Stop: 03/12/19 20:59 Last Admin: 03/01/19 22:00 Dose: 1 drop Levothyroxine Sodium (Synthroid) 0.075 mg PO QDAC [facility] Stop: 03/12/19 07:29 Last Admin: 03/01/19 06:55 Dose: 0.075 mg Loratadine (Claritin) 10 mg PO DAILY [facility] Stop: 03/12/19 08:59 Last Admin: 03/01/19 09:19 Dose: 10 mg Losartan Potassium (Cozaar) 50 mg PO DAILY [facility] Stop: 03/12/19 08:59 Last Admin: 03/01/19 17:49 Dose: Not Given Magnesium Hydroxide (Milk Of Magnesia) 30 ml PO HS PRN PRN Reason: Constipation Multivitamins/Vitamin C (Theragran) 1 tab PO DAILY [facility] Stop: 03/12/19 08:59 Last Admin: 03/01/19 09:18 Dose: 1 tab Naproxen (Naprosyn) 500 mg PO BIDWM [facility] Stop: 03/20/19 17:59 Last Admin: 03/01/19 18:18 Dose: Not Given Nitroglycerin (Nitrostat) 0.4 mg SL Q5MIN PRN PRN Reason: CHEST PAIN Stop: 03/11/19 23:24 Last Admin: 02/12/19 06:52 Dose: 0.4 mg Oxycodone/Acetaminophen (Percocet 5/325mg Oral Tab) 1 tab PO Q4H PRN PRN Reason: severe pain (7-10) Stop: 04/16/19 11:01 Last Admin: 03/01/19 21:09 Dose: 1 tab Senna (Senna) 17.2 mg PO HS [facility] Stop: 03/12/19 20:59 Last Admin: 03/01/19 21:06 Dose: 17.2 mg Sodium Phosphate (Fleet Enema) 135 ml RC DAILY PRN PRN Reason: Constipation Stop: 03/11/19 23:24 Vitamin B Complex/Vit C/Folic Acid (Vitamin B Complex W/Vitamin C) 1 tab PO DAILY [facility] Stop: 03/12/19 08:59 Last Admin: 03/01/19 09:19 Dose: 1 tab Zolpidem Tartrate (Ambien) 5 mg PO HS PRN PRN Reason: Insomnia Stop: 04/16/19 10:58 Last Admin: 03/01/19 00:35 Dose: 5 mg General: alert HEENT: NC/AT, PERRLA, EOMI, anicteric sclerae, throat clear Neck: Supple, No JVD, No thyromegaly, +2 carotid pulse wo bruit, No LAD Lungs: CTAB Cardiovascular: RRR, Normal S1, Normal S2, without murmur Abdomen: soft, non-tender, non-distended Extremities: clear Neurological: no change Internal Medicine Assmt/Plan - Assessment Assessment: 1.DM. 2.HTN. 3.HYPOTHYROIDISM. 5.PSYCHOSIS - Plan Plan: CONTINUE ON CURRENT MEDICATION AND DIET. Nutritional Asmnt/Malnutr-PDOC - Dietary Evaluation Malnutrition Findings (Please click <Entered> for more info): Nutritional Asmnt/Malnutrition Start: 01/11/19 12: 41 Text: Status: Complete Freq: Protocol: Document 01/11/19 12:41 [email or web address] (Rec: 01/11/19 12:45 [email or web address] [email or web address]) Nutritional Asmnt/Malnutrition Patient General Information Nutritional Screening Consult Diagnosis PSYCHOSIS Pertinent Medical Hx/Surgical Hx HTN, DM, HYPOTHYROIDISM, PSYCHOSIS, DJD Subjective Information IA CONSULT: DM PT IS A 78 YEAR OLD FEMALE [facility] AD[facility]ED ON [facility]10 D/T AGGRESSIVE BEHAVIOR. PT WAS HERE RECENTLY, DISCHARGED ON . PER MEAL/NUTRITION ACTIVITY RECORD, PT TYPICALLY ATE 100% MEALS. HT: 59 WT: 310 LB (141 KG) ABW: 186 LB (84.66 KG) BMI: 45.78 (OBESE III) GI: WNL, NON-TENDER, LARGE, ROUND BM: NOT NOTED I/O: 240/NOT NOTED SKIN: SKIN BREAKDOWN TO BUTTOCKS AREA LUIS: NOT NOTED DIET ORDER: CCHO 45GM, PUREED ESTIMATED ENERGY NEEDS: (OBESE III, ABW) 9217-8340 KCALS (20-25 KCALS/ KG) 68-85 G PRO (0.8-1.0 G/KG) 9327-7895 ML (25-30 ML/KG) PT PO INTAKE: 100% SNACK PROVIDED. Current Diet Order/ Nutrition Support [facility], INCO 45GM, PUREED Pertinent Medications MAALOX (PRN), ALBUTEROL (PRN), LIPITOR, COREG, COLACE, GLUCAGON (PRN), LANTUS, SYNTHROID, INS-SS, COZAAR, MOM (PRN), THEREGRAN, SENNA, FLEET ENEMA (PRN), VIT B COMLPEX WITH VIT C Pertinent Labs 01/10: NA 131, GLUCOSE 363 POC GLUCOSE (LAST 24 HOURS): 257, 250 Nutritional Hx/Data Height 1.75 m Height (Calculated Centimeters) 175.3 Current Weight (lbs) 140.614 kg Weight (Calculated Kilograms) 140.6 Weight (Calculated Grams) 922410.6 [place] Body Weight 145 % [place] Body Weight 214 Body Mass Index (BMI) 45.8 Weight Status Morbidly Obese GI Symptoms GI Symptoms None Last BM NOT NOTED Skin Integrity/Comment: SKIN BREAKDOWN TO BUTTOCKS AREA LUIS: NOT NOTED Current %PO Good (75-100%) Estimated Nutritional Goals BEE in Kcals: Adj wt of IBW Calories/Kcals/Kg 20-25 Kcals Calculated 0712-6071 Protein: Adj wt of IBW Protein g/k.8-1.0 Protein Calculated 68-85 Fluid: ml 4040-1099 ML (25-30 ML/KG) Nutritional Problem 1. Problem Problem ALTERED NUTRITION RELATED LABS Etiology R/T ENDOCRINE DYSFUNCTION Signs/Symptoms: AEB HX DM AND GLUCOSE 363 Malnutrition Related to Morbid Obesity Malnutrition related to morbid obesity Weight 200% of ideal wt Query Text:(Any 1 Criteria met) Malnutrition related to morbid obesity Yes Intervention/Recommendation Comments 1. CONTINUE WITH [facility] 45GM, PUREED DIET ORDERED. 2. CONTNIUE ANTIHYPERGLYCEMIC MEDICATION FOR GLUCOSE CONTROL PER MD ORDER. Expected Outcomes/Goals Expected Outcomes/Goals 1. PO INTAKE TO MEET 75% OF NUTRITIONAL NEEDS. 2. MONITOR PO INTAKE, WT, NUTRITION RELATED LABS AND SKIN INTEGRITY. 3. F/U LOW RISK IN 7 DAYS, 01/18
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
[2019-03-02] MEDS: Levothyroxine 0.075 Mg Tab PO SCH (06:43)
[2019-03-02] MEDS: INSULIN LISPRO SLIDING SCALE 100 UNITS/ML UNIT SUBQ SCH ×4 (06:43→20:54)
[2019-03-02] MEDS: Albuterol/Ipratropium Neb 3 ML AERS HHN PRN ×2 (07:28→19:14)
[2019-03-02] MEDS: Guaifenesin DM 10 ML UDC PO SCH ×3 (08:48→20:53)
[2019-03-02] MEDS: Calcium Carb/Vit D 500 mg/200 U Tab PO SCH (08:49)
[2019-03-02] MEDS: Multivitamin Tab PO SCH (08:49)
[2019-03-02] MEDS: Haldol Oral Sol.(concentrate) 10 mg/5 mL Udc PO SCH ×2 (08:49→16:52)
[2019-03-02] MEDS: Vitamin B Complex w/Vitamin C Tab PO SCH (08:50)
[2019-03-02] MEDS: Fluticasone Propionate Nasal 1 SPR SPR NS SCH (08:55)
--- NOTE | 2019-03-02 11:17 | Internal Medicine Prog Note ---
Internal Medicine Subjective - Subjective Service Date: 03/02/19 Patient seen and examined:: with staff (SHE FEELS WELL) Patient is:: awake, verbal, in bed, talking Per staff patient has:: no adverse event Internal Medicine Objective - Results Result Diagrams: 01/10/19 15:10 01/10/19 15:10 Recent Labs: Laboratory Last Values WBC 8.4 Th/cmm (4.8-10.8) 01/10/19 15:10 RBC 5.16 Mil/cmm (3.80-5.20) 01/10/19 15:10 Hgb 14.9 gm/dL (12-16) 01/10/19 15:10 Hct 44.3 % (41.0-60) 01/10/19 15:10 MCV 85.8 fl (81-100) 01/10/19 15:10 MCH 28.9 pg (27.0-31.0) 01/10/19 15:10 MCHC Differential 33.7 pg (28.0-36.0) 01/10/19 15:10 RDW 12.1 % (11.5-20.0) 01/10/19 15:10 Plt Count 291 Th/cmm (150-400) 01/10/19 15:10 MPV 7.3 fl 01/10/19 15:10 Neutrophils % 59.5 % (40.0-80.0) 01/10/19 15:10 Lymphocytes % 31.2 % (20.0-50.0) 01/10/19 15:10 Monocytes % 5.0 % (2.0-10.0) 01/10/19 15:10 Eosinophils % 4.3 % (0.0-5.0) 01/10/19 15:10 Basophils % 0.0 % (0.0-2.0) 01/10/19 15:10 Sodium 131 mEq/L (136-145) L 01/10/19 15:10 Potassium 4.2 mEq/L (3.5-5.1) 01/10/19 15:10 Chloride 96 mEq/L (98-107) L 01/10/19 15:10 Carbon Dioxide 23.9 mEq/L (21.0-31.0) 01/10/19 15:10 Anion Gap 15.3 (7.0-16.0) 01/10/19 15:10 BUN 18 mg/dL (7-25) 01/10/19 15:10 Creatinine 1.0 mg/dL (0.6-1.2) 01/10/19 15:10 Est GFR ( Amer) TNP 01/10/19 15:10 Est GFR (Non-Af Amer) TNP 01/10/19 15:10 BUN/Creatinine Ratio 18.0 01/10/19 15:10 Glucose 363 mg/dL (70-105) H 01/10/19 15:10 POC Glucose 163 MG/DL (70 - 105) H 03/02/19 06:40 Calcium 9.6 mg/dL (8.6-10.3) 01/10/19 15:10 Total Bilirubin 0.5 mg/dL (0.3-1.0) 01/10/19 15:10 AST 13 U/L (13-39) 01/10/19 15:10 ALT 14 U/L (7-52) 01/10/19 15:10 Alkaline Phosphatase 66 U/L (34-104) 01/10/19 15:10 Troponin I 0.04 ng/mL (0.01-0.05) 01/19/19 22:30 Total Protein 7.1 gm/dL (6.0-8.3) 01/10/19 15:10 Albumin 3.7 gm/dL (3.7-5.3) 01/10/19 15:10 Globulin 3.4 gm/dL 01/10/19 15:10 Albumin/Globulin Ratio 1.1 (1.0-1.8) 01/10/19 15:10 Triglycerides 417 mg/dL (<150) H 01/10/19 15:10 Cholesterol 188 mg/dL (<200) 01/10/19 15:10 LDL Cholesterol Direct 109 mg/dL (75-193) 01/10/19 15:10 HDL Cholesterol 27 mg/dL (23-92) 01/10/19 15:10 TSH 1.76 uIU/ml (0.34-5.60) 01/10/19 15:10 Urine Source CLEAN C 01/14/19 17:00 Urine Color YELLOW 01/14/19 17:00 Urine Clarity CLOUDY (CLEAR) H 01/14/19 17:00 Urine pH 6.5 (4.6 - 8.0) 01/14/19 17:00 Ur Specific [place] <= 1.005 (1.005-1.030) 01/14/19 17:00 Urine Protein NEGATIVE mg/dL (NEGATIVE) 01/14/19 17:00 Urine Glucose (UA) 100 mg/dL (NEGATIVE) H 01/14/19 17:00 Urine Ketones NEGATIVE mg/dL (NEGATIVE) 01/14/19 17:00 Urine Blood SMALL (NEGATIVE) H 01/14/19 17:00 Urine Nitrate NEGATIVE (NEGATIVE) 01/14/19 17:00 Urine Bilirubin NEGATIVE (NEGATIVE) 01/14/19 17:00 Urine Urobilinogen 0.2 E.U./dL (0.2 - 1.0) 01/14/19 17:00 Ur Leukocyte Esterase MODERATE (NEGATIVE) H 01/14/19 17:00 Urine RBC 2-5 /hpf (0-5) 01/14/19 17:00 Urine WBC 6-10 /hpf (0-5) H 01/14/19 17:00 Ur Epithelial Cells FEW /lpf (FEW) 01/14/19 17:00 Urine Bacteria MANY /hpf (NONE SEEN) H 01/14/19 17:00 RPR NONREACTIVE (NONREACTIVE) 01/10/19 15:10 - Physical Exam Vitals and I&O: Vital Signs Temp 98.1 F 03/02/19 06:35 Pulse 68 03/02/19 08:51 Resp 18 03/02/19 07:29 BP 165/99 03/02/19 08:51 Pulse Ox 95 03/02/19 07:29 Intake & Output 03/01/19 03/02/19 03/02/19 18:59 06:59 18:59 Intake Total 950 480 Output Total 2 Balance 950 478 Intake: Oral 950 480 Output: Urine/Stool Mix 2 Other: # Voids 5 1 # Bowel Movements 0 1 Active Medications: Current Medications Acetaminophen (Tylenol Extra Strength) 500 mg PO Q4H PRN PRN Reason: Pain or Fever >101 Stop: 03/12/19 00:41 Last Admin: 02/09/19 18:22 Dose: 500 mg Al Hydrox/Mg Hydrox/Simethicone (Maalox) 30 ml PO Q4HR PRN PRN Reason: GI DISTRESS Stop: 03/11/19 19:56 Albuterol/Ipratropium (Duoneb Neb) 3 ml HHN Q4H PRN PRN Reason: Wheezing Stop: 03/12/19 00:48 Last Admin: 03/02/19 07:28 Dose: 3 ml Aripiprazole (Abilify) 30 mg PO DAILY [facility]; Protocol Stop: 03/17/19 08:59 Last Admin: 03/02/19 08:49 Dose: 30 mg Aspirin (Ecotrin) 81 mg PO DAILY CAL Stop: 03/12/19 08:59 Last Admin: 03/02/19 08:49 Dose: 81 mg Atorvastatin Calcium (Lipitor) 20 mg PO HS [facility]; Protocol Stop: 03/12/19 20:59 Last Admin: 03/01/19 21:05 Dose: 20 mg Brimonidine Tartrate (Alphagan 0.1% Ophth Soln) 1 drop EACH EYE TID CAL Stop: 03/12/19 08:59 Last Admin: 03/02/19 08:55 Dose: 1 drop Calcium/Vitamin D (Oscal W/Vitamin D) 1 tab PO DAILY CAL Stop: 04/30/19 08:59 Last Admin: 03/02/19 08:49 Dose: 1 tab Carvedilol (Coreg) 12.5 mg PO BID [facility] Stop: 03/21/19 08:59 Last Admin: 03/02/19 08:50 Dose: 12.5 mg Docusate Sodium (Colace) 100 mg PO BID CAL Stop: 03/12/19 08:59 Last Admin: 03/02/19 08:49 Dose: 100 mg Duloxetine HCl (Cymbalta) 60 mg PO DAILY [facility]; Protocol Stop: 04/16/19 13:59 Last Admin: 03/02/19 08:49 Dose: 60 mg Fluticasone Propionate (Flonase) 1 spr NS DAILY [facility] Stop: 03/12/19 08:59 Last Admin: 03/02/19 08:55 Dose: 1 spr Glucagon (Glucagen) 1 mg IM PRN PRN PRN Reason: BS below 70 & not tolerate po Stop: 03/11/19 23:24 Guaifenesin/Dextromethorphan (Robitussin Dm) 10 ml PO TID CAL Stop: 04/18/19 20:59 Last Admin: 03/02/19 08:48 Dose: 10 ml Haloperidol Lactate (Haldol Concentrate 10mg/5ml Susp) 5 mg PO BID [facility]; Protocol Stop: 03/18/19 08:59 Last Admin: 03/02/19 08:49 Dose: 5 mg Hydralazine HCl (Apresoline) 10 mg PO BID CAL Stop: 03/12/19 08:59 Last Admin: 03/02/19 08:50 Dose: 10 mg Ibuprofen (Motrin) 600 mg PO Q8H PRN PRN Reason: breakthrough pain Stop: 03/12/19 00:35 Last Admin: 02/20/19 16:51 Dose: 600 mg Insulin Glargine (Lantus Insulin) 26 units SUBQ HS [facility] Stop: 03/12/19 20:59 Last Admin: 03/01/19 22:00 Dose: 26 units Insulin Human Lispro (Humalog Insulin Sliding Scale) 0 units SUBQ [facility]; Protocol Stop: 03/11/19 20:59 Last Admin: 03/02/19 06:43 Dose: Not Given Isosorbide Dinitrate (Isordil) 10 mg PO Q8HR [facility] Stop: 03/12/19 04:59 Last Admin: 03/02/19 06:00 Dose: 10 mg Latanoprost (Xalatan 0.005% Oph Soln) 1 drop EACH EYE HS [facility] Stop: 03/12/19 20:59 Last Admin: 03/01/19 22:00 Dose: 1 drop Levothyroxine Sodium (Synthroid) 0.075 mg PO QDAC [facility] Stop: 03/12/19 07:29 Last Admin: 03/02/19 06:43 Dose: 0.075 mg Loratadine (Claritin) 10 mg PO DAILY [facility] Stop: 03/12/19 08:59 Last Admin: 03/02/19 08:50 Dose: 10 mg Losartan Potassium (Cozaar) 50 mg PO DAILY [facility] Stop: 03/12/19 08:59 Last Admin: 03/02/19 08:51 Dose: 50 mg Magnesium Hydroxide (Milk Of Magnesia) 30 ml PO HS PRN PRN Reason: Constipation Multivitamins/Vitamin C (Theragran) 1 tab PO DAILY [facility] Stop: 03/12/19 08:59 Last Admin: 03/02/19 08:49 Dose: 1 tab Naproxen (Naprosyn) 500 mg PO BIDWM CAL Stop: 03/20/19 17:59 Last Admin: 03/02/19 08:49 Dose: 500 mg Nitroglycerin (Nitrostat) 0.4 mg SL Q5MIN PRN PRN Reason: CHEST PAIN Stop: 03/11/19 23:24 Last Admin: 02/12/19 06:52 Dose: 0.4 mg Oxycodone/Acetaminophen (Percocet 5/325mg Oral Tab) 1 tab PO Q4H PRN PRN Reason: severe pain (7-10) Stop: 04/16/19 11:01 Last Admin: 03/01/19 21:09 Dose: 1 tab Senna (Senna) 17.2 mg PO HS CAL Stop: 03/12/19 20:59 Last Admin: 03/01/19 21:06 Dose: 17.2 mg Sodium Phosphate (Fleet Enema) 135 ml RC DAILY PRN PRN Reason: Constipation Stop: 03/11/19 23:24 Vitamin B Complex/Vit C/Folic Acid (Vitamin B Complex W/Vitamin C) 1 tab PO DAILY CAL Stop: 03/12/19 08:59 Last Admin: 03/02/19 08:50 Dose: 1 tab Zolpidem Tartrate (Ambien) 5 mg PO HS PRN PRN Reason: Insomnia Stop: 04/16/19 10:58 Last Admin: 03/01/19 00:35 Dose: 5 mg General: alert HEENT: NC/AT, PERRLA, EOMI, anicteric sclerae, throat clear Neck: Supple, No JVD, No thyromegaly, +2 carotid pulse wo bruit, No LAD Lungs: CTAB Cardiovascular: RRR, Normal S1, Normal S2, without murmur Abdomen: soft, non-tender, non-distended Extremities: clear Neurological: no change Internal Medicine Assmt/Plan - Assessment Assessment: 1.DM. 2.HTN. 3.HYPOTHYROIDISM. 5.PSYCHOSIS - Plan Plan: CONTINUE ON CURRENT MEDICATION AND DIET. Nutritional Asmnt/Malnutr-PDOC - Dietary Evaluation Malnutrition Findings (Please click <Entered> for more info): Nutritional Asmnt/Malnutrition Start: 01/11/19 12: 41 Text: Status: Complete Freq: Protocol: Document 01/11/19 12:41 JEXAMUS (Rec: 01/11/19 12:45 [email or web address]) Nutritional Asmnt/Malnutrition Patient General Information Nutritional Screening Consult Diagnosis PSYCHOSIS Pertinent Medical Hx/Surgical Hx HTN, DM, HYPOTHYROIDISM, PSYCHOSIS, DJD Subjective Information IA CONSULT: DM PT IS A 78 YEAR OLD FEMALE [facility] ON [facility]/10 D/T AGGRESSIVE BEHAVIOR. PT WAS HERE RECENTLY, DISCHARGED ON . PER MEAL/NUTRITION ACTIVITY RECORD, PT TYPICALLY ATE 100% MEALS. HT: 59 WT: 310 LB (141 KG) ABW: 186 LB (84.66 KG) BMI: 45.78 (OBESE III) GI: WNL, NON-TENDER, LARGE, ROUND BM: NOT NOTED I/O: 240/NOT NOTED SKIN: SKIN BREAKDOWN TO BUTTOCKS AREA LUIS: NOT NOTED DIET ORDER: CCHO 45GM, PUREED ESTIMATED ENERGY NEEDS: (OBESE III, ABW) 3977-1867 KCALS (20-25 KCALS/ KG) 68-85 G PRO (0.8-1.0 G/KG) 9460-9469 ML (25-30 ML/KG) PT PO INTAKE: 100% SNACK PROVIDED. Current Diet Order/ Nutrition Support CCHO 45GM, PUREED Pertinent Medications MAALOX (PRN), ALBUTEROL (PRN), LIPITOR, COREG, COLACE, GLUCAGON (PRN), LANTUS, SYNTHROID, INS-SS, COZAAR, MOM (PRN), THEREGRAN, SENNA, FLEET ENEMA (PRN), VIT B COMLPEX WITH VIT C Pertinent Labs 01/10: NA 131, GLUCOSE 363 POC GLUCOSE (LAST 24 HOURS): 257, 250 Nutritional Hx/Data Height 1.75 m Height (Calculated Centimeters) 175.3 Current Weight (lbs) 140.614 kg Weight (Calculated Kilograms) 140.6 Weight (Calculated Grams) 427690.6 [place] Body Weight 145 % [place] Body Weight 214 Body Mass Index (BMI) 45.8 Weight Status Morbidly Obese GI Symptoms GI Symptoms None Last BM NOT NOTED Skin Integrity/Comment: SKIN BREAKDOWN TO BUTTOCKS AREA LUIS: NOT NOTED Current %PO Good (75-100%) Estimated Nutritional Goals BEE in Kcals: Adj wt of IBW Calories/Kcals/Kg 20-25 Kcals Calculated 9658-6249 Protein: Adj wt of IBW Protein g/k.8-1.0 Protein Calculated 68-85 Fluid: ml 0602-1748 ML (25-30 ML/KG) Nutritional Problem 1. Problem Problem ALTERED NUTRITION RELATED LABS Etiology R/T ENDOCRINE DYSFUNCTION Signs/Symptoms: AEB HX DM AND GLUCOSE 363 Malnutrition Related to Morbid Obesity Malnutrition related to morbid obesity Weight 200% of ideal wt Query Text:(Any 1 Criteria met) Malnutrition related to morbid obesity Yes Intervention/Recommendation Comments 1. CONTINUE WITH [facility] 45GM, PUREED DIET ORDERED. 2. CONTNIUE ANTIHYPERGLYCEMIC MEDICATION FOR GLUCOSE CONTROL PER MD ORDER. Expected Outcomes/Goals Expected Outcomes/Goals 1. PO INTAKE TO MEET 75% OF NUTRITIONAL NEEDS. 2. MONITOR PO INTAKE, WT, NUTRITION RELATED LABS AND SKIN INTEGRITY. 3. F/U LOW RISK IN 7 DAYS, 01/18
[2019-03-02] MEDS: APAP/Oxycodone 5/325mg Tab PO PRN (14:38)
--- NOTE | 2019-03-02 17:40 | Progress Notes ---
DATE: 03/02/2019 SUBJECTIVE: Case was discussed with staff of the patient, reviewed records. Covering for Dr. Velazquez. This is a well-known case, I have seen her many times, covering for Dr. Velazquez. The patient continues to be in bed, resistant to care and ongoing depression, demanding, poor impulse control. Still episodes of yelling at staff, trying to hit staff. Staff is working on placement for this patient has been hard finding her a place. She is compliant with the medication with no side effects, no sedation, no nausea, no extrapyramidal symptoms. We will continue to work with the patient in group therapy, milieu therapy, and adjust medication as needed. JOB# [id number]
[2019-03-02] MEDS: Insulin Glargine 100 units/ml 10ml Vial SUBQ SCH (20:53)
[2019-03-02] MEDS: Atorvastatin Calcium 10 MG TAB PO SCH (20:53)
[2019-03-03] MEDS: INSULIN LISPRO SLIDING SCALE 100 UNITS/ML UNIT SUBQ SCH ×4 (06:34→20:34)
[2019-03-03] MEDS: Levothyroxine 0.075 Mg Tab PO SCH (06:35)
[2019-03-03] MEDS: Calcium Carb/Vit D 500 mg/200 U Tab PO SCH (09:10)
[2019-03-03] MEDS: Vitamin B Complex w/Vitamin C Tab PO SCH (09:10)
[2019-03-03] MEDS: Multivitamin Tab PO SCH (09:11)
[2019-03-03] MEDS: Guaifenesin DM 10 ML UDC PO SCH ×3 (09:12→20:32)
[2019-03-03] MEDS: Haldol Oral Sol.(concentrate) 10 mg/5 mL Udc PO SCH ×2 (09:12→16:51)
[2019-03-03] MEDS: Fluticasone Propionate Nasal 1 SPR SPR NS SCH (09:13)
[2019-03-03] MEDS: Albuterol/Ipratropium Neb 3 ML AERS HHN PRN ×2 (11:41→19:01)
--- NOTE | 2019-03-03 18:18 | Internal Medicine Prog Note ---
Internal Medicine Subjective - Subjective Service Date: 03/03/19 Patient seen and examined:: without staff (she feels well) Patient is:: awake, verbal, in bed, talking Per staff patient has:: no adverse event Internal Medicine Objective - Results Result Diagrams: 01/10/19 15:10 01/10/19 15:10 Recent Labs: Laboratory Last Values WBC 8.4 Th/cmm (4.8-10.8) 01/10/19 15:10 RBC 5.16 Mil/cmm (3.80-5.20) 01/10/19 15:10 Hgb 14.9 gm/dL (12-16) 01/10/19 15:10 Hct 44.3 % (41.0-60) 01/10/19 15:10 MCV 85.8 fl (81-100) 01/10/19 15:10 MCH 28.9 pg (27.0-31.0) 01/10/19 15:10 MCHC Differential 33.7 pg (28.0-36.0) 01/10/19 15:10 RDW 12.1 % (11.5-20.0) 01/10/19 15:10 Plt Count 291 Th/cmm (150-400) 01/10/19 15:10 MPV 7.3 fl 01/10/19 15:10 Neutrophils % 59.5 % (40.0-80.0) 01/10/19 15:10 Lymphocytes % 31.2 % (20.0-50.0) 01/10/19 15:10 Monocytes % 5.0 % (2.0-10.0) 01/10/19 15:10 Eosinophils % 4.3 % (0.0-5.0) 01/10/19 15:10 Basophils % 0.0 % (0.0-2.0) 01/10/19 15:10 Sodium 131 mEq/L (136-145) L 01/10/19 15:10 Potassium 4.2 mEq/L (3.5-5.1) 01/10/19 15:10 Chloride 96 mEq/L (98-107) L 01/10/19 15:10 Carbon Dioxide 23.9 mEq/L (21.0-31.0) 01/10/19 15:10 Anion Gap 15.3 (7.0-16.0) 01/10/19 15:10 BUN 18 mg/dL (7-25) 01/10/19 15:10 Creatinine 1.0 mg/dL (0.6-1.2) 01/10/19 15:10 Est GFR ( Amer) TNP 01/10/19 15:10 Est GFR (Non-Af Amer) TNP 01/10/19 15:10 BUN/Creatinine Ratio 18.0 01/10/19 15:10 Glucose 363 mg/dL (70-105) H 01/10/19 15:10 POC Glucose 183 MG/DL (70 - 105) H 03/02/19 17:03 Calcium 9.6 mg/dL (8.6-10.3) 01/10/19 15:10 Total Bilirubin 0.5 mg/dL (0.3-1.0) 01/10/19 15:10 AST 13 U/L (13-39) 01/10/19 15:10 ALT 14 U/L (7-52) 01/10/19 15:10 Alkaline Phosphatase 66 U/L (34-104) 01/10/19 15:10 Troponin I 0.04 ng/mL (0.01-0.05) 01/19/19 22:30 Total Protein 7.1 gm/dL (6.0-8.3) 01/10/19 15:10 Albumin 3.7 gm/dL (3.7-5.3) 01/10/19 15:10 Globulin 3.4 gm/dL 01/10/19 15:10 Albumin/Globulin Ratio 1.1 (1.0-1.8) 01/10/19 15:10 Triglycerides 417 mg/dL (<150) H 01/10/19 15:10 Cholesterol 188 mg/dL (<200) 01/10/19 15:10 LDL Cholesterol Direct 109 mg/dL (75-193) 01/10/19 15:10 HDL Cholesterol 27 mg/dL (23-92) 01/10/19 15:10 TSH 1.76 uIU/ml (0.34-5.60) 01/10/19 15:10 Urine Source CLEAN C 01/14/19 17:00 Urine Color YELLOW 01/14/19 17:00 Urine Clarity CLOUDY (CLEAR) H 01/14/19 17:00 Urine pH 6.5 (4.6 - 8.0) 01/14/19 17:00 Ur Specific [place] <= 1.005 (1.005-1.030) 01/14/19 17:00 Urine Protein NEGATIVE mg/dL (NEGATIVE) 01/14/19 17:00 Urine Glucose (UA) 100 mg/dL (NEGATIVE) H 01/14/19 17:00 Urine Ketones NEGATIVE mg/dL (NEGATIVE) 01/14/19 17:00 Urine Blood SMALL (NEGATIVE) H 01/14/19 17:00 Urine Nitrate NEGATIVE (NEGATIVE) 01/14/19 17:00 Urine Bilirubin NEGATIVE (NEGATIVE) 01/14/19 17:00 Urine Urobilinogen 0.2 E.U./dL (0.2 - 1.0) 01/14/19 17:00 Ur Leukocyte Esterase MODERATE (NEGATIVE) H 01/14/19 17:00 Urine RBC 2-5 /hpf (0-5) 01/14/19 17:00 Urine WBC 6-10 /hpf (0-5) H 01/14/19 17:00 Ur Epithelial Cells FEW /lpf (FEW) 01/14/19 17:00 Urine Bacteria MANY /hpf (NONE SEEN) H 01/14/19 17:00 RPR NONREACTIVE (NONREACTIVE) 01/10/19 15:10 - Physical Exam Vitals and I&O: Vital Signs Temp 97.9 F 03/03/19 14:03 Pulse 61 03/03/19 16:52 Resp 20 03/03/19 15:13 BP 163/98 03/03/19 16:52 Pulse Ox 94 03/03/19 14:03 Intake & Output 03/02/19 03/03/19 03/03/19 18:59 06:59 18:59 Intake Total 120 Balance 120 Intake: Oral 120 Other: # Voids 3 4 # Bowel Movements 0 Active Medications: Current Medications Acetaminophen (Tylenol Extra Strength) 500 mg PO Q4H PRN PRN Reason: Pain or Fever >101 Stop: 03/12/19 00:41 Last Admin: 02/09/19 18:22 Dose: 500 mg Al Hydrox/Mg Hydrox/Simethicone (Maalox) 30 ml PO Q4HR PRN PRN Reason: GI DISTRESS Stop: 03/11/19 19:56 Albuterol/Ipratropium (Duoneb Neb) 3 ml HHN Q4H PRN PRN Reason: Wheezing Stop: 03/12/19 00:48 Last Admin: 03/03/19 11:41 Dose: 3 ml Aripiprazole (Abilify) 30 mg PO DAILY [facility]; Protocol Stop: 03/17/19 08:59 Last Admin: 03/03/19 09:10 Dose: 30 mg Aspirin (Ecotrin) 81 mg PO DAILY [facility] Stop: 03/12/19 08:59 Last Admin: 03/03/19 09:11 Dose: 81 mg Atorvastatin Calcium (Lipitor) 20 mg PO HS [facility]; Protocol Stop: 03/12/19 20:59 Last Admin: 03/02/19 20:53 Dose: 20 mg Brimonidine Tartrate (Alphagan 0.1% Oph Soln) 1 drop EACH EYE TID CAL Stop: 03/12/19 08:59 Last Admin: 03/03/19 15:32 Dose: Not Given Calcium/Vitamin D (Oscal W/Vitamin D) 1 tab PO DAILY [facility] Stop: 04/30/19 08:59 Last Admin: 03/03/19 09:10 Dose: 1 tab Carvedilol (Coreg) 12.5 mg PO BID [facility] Stop: 03/21/19 08:59 Last Admin: 03/03/19 16:52 Dose: Not Given Docusate Sodium (Colace) 100 mg PO BID [facility] Stop: 03/12/19 08:59 Last Admin: 03/03/19 16:53 Dose: Not Given Duloxetine HCl (Cymbalta) 60 mg PO DAILY [facility]; Protocol Stop: 04/16/19 13:59 Last Admin: 03/03/19 09:10 Dose: 60 mg Fluticasone Propionate (Flonase) 1 spr NS DAILY [facility] Stop: 03/12/19 08:59 Last Admin: 03/03/19 09:13 Dose: 1 spr Glucagon (Glucagen) 1 mg IM PRN PRN PRN Reason: BS below 70 & not tolerate po Stop: 03/11/19 23:24 Guaifenesin/Dextromethorphan (Robitussin Dm) 10 ml PO TID [facility] Stop: 04/18/19 20:59 Last Admin: 03/03/19 15:32 Dose: Not Given Haloperidol Lactate (Haldol Concentrate 10mg/5ml Susp) 5 mg PO BID [facility]; Protocol Stop: 03/18/19 08:59 Last Admin: 03/03/19 16:51 Dose: 5 mg Hydralazine HCl (Apresoline) 10 mg PO BID [facility] Stop: 03/12/19 08:59 Last Admin: 03/03/19 16:52 Dose: 10 mg Ibuprofen (Motrin) 600 mg PO Q8H PRN PRN Reason: breakthrough pain Stop: 03/12/19 00:35 Last Admin: 03/03/19 16:51 Dose: 600 mg Insulin Glargine (Lantus Insulin) 26 units SUBQ HS [facility] Stop: 03/12/19 20:59 Last Admin: 03/02/19 20:53 Dose: 26 units Insulin Human Lispro (Humalog Insulin Sliding Scale) 0 units SUBQ [facility]; Protocol Stop: 03/11/19 20:59 Last Admin: 03/03/19 17:29 Dose: Not Given Isosorbide Dinitrate (Isordil) 10 mg PO Q8HR [facility] Stop: 03/12/19 04:59 Last Admin: 03/03/19 16:52 Dose: 10 mg Latanoprost (Xalatan 0.005% Ophth Soln) 1 drop EACH EYE HS [facility] Stop: 03/12/19 20:59 Last Admin: 03/02/19 20:55 Dose: 1 drop Levothyroxine Sodium (Synthroid) 0.075 mg PO QDAC [facility] Stop: 03/12/19 07:29 Last Admin: 03/03/19 06:35 Dose: 0.075 mg Loratadine (Claritin) 10 mg PO DAILY [facility] Stop: 03/12/19 08:59 Last Admin: 03/03/19 09:10 Dose: 10 mg Losartan Potassium (Cozaar) 50 mg PO DAILY [facility] Stop: 03/12/19 08:59 Last Admin: 03/03/19 09:12 Dose: 50 mg Magnesium Hydroxide (Milk Of Magnesia) 30 ml PO HS PRN PRN Reason: Constipation Multivitamins/Vitamin C (Theragran) 1 tab PO DAILY [facility] Stop: 03/12/19 08:59 Last Admin: 03/03/19 09:11 Dose: 1 tab Naproxen (Naprosyn) 500 mg PO BIDWM [facility] Stop: 03/20/19 17:59 Last Admin: 03/03/19 17:32 Dose: Not Given Nitroglycerin (Nitrostat) 0.4 mg SL Q5MIN PRN PRN Reason: CHEST PAIN Stop: 03/11/19 23:24 Last Admin: 02/12/19 06:52 Dose: 0.4 mg Oxycodone/Acetaminophen (Percocet 5/325mg Oral Tab) 1 tab PO Q4H PRN PRN Reason: severe pain (7-10) Stop: 04/16/19 11:01 Last Admin: 03/02/19 14:38 Dose: 1 tab Senna (Senna) 17.2 mg PO HS CAL Stop: 03/12/19 20:59 Last Admin: 03/02/19 20:55 Dose: 17.2 mg Sodium Phosphate (Fleet Enema) 135 ml RC DAILY PRN PRN Reason: Constipation Stop: 03/11/19 23:24 Vitamin B Complex/Vit C/Folic Acid (Vitamin B Complex W/Vitamin C) 1 tab PO DAILY [facility] Stop: 03/12/19 08:59 Last Admin: 03/03/19 09:10 Dose: 1 tab Zolpidem Tartrate (Ambien) 5 mg PO HS PRN PRN Reason: Insomnia Stop: 04/16/19 10:58 Last Admin: 03/01/19 00:35 Dose: 5 mg General: alert HEENT: NC/AT, PERRLA, EOMI, anicteric sclerae, throat clear Neck: Supple, No JVD, No thyromegaly, +2 carotid pulse wo bruit, No LAD Lungs: CTAB Cardiovascular: RRR, Normal S1, Normal S2, without murmur Abdomen: soft, non-tender, non-distended Extremities: clear Neurological: no change Internal Medicine Assmt/Plan - Assessment Assessment: 1.DM. 2.HTN. 3.HYPOTHYROIDISM. 5.PSYCHOSIS - Plan Plan: CONTINUE ON CURRENT MEDICATION AND DIET. Nutritional Asmnt/Malnutr-PDOC - Dietary Evaluation Malnutrition Findings (Please click <Entered> for more info): Nutritional Asmnt/Malnutrition Start: 01/11/19 12: 41 Text: Status: Complete Freq: Protocol: Document 01/11/19 12:41 AXEL (Rec: 01/11/19 12:45 [email or web address] [email or web address]) Nutritional Asmnt/Malnutrition Patient General Information Nutritional Screening Consult Diagnosis PSYCHOSIS Pertinent Medical Hx/Surgical Hx HTN, DM, HYPOTHYROIDISM, PSYCHOSIS, DJD Subjective Information IA CONSULT: DM PT IS A 78 YEAR OLD FEMALE FROM [facility] ADM[facility]ED ON 01/10 D/T AGGRESSIVE BEHAVIOR. PT WAS HERE RECENTLY, DISCHARGED ON . PER MEAL/NUTRITION ACTIVITY RECORD, PT TYPICALLY ATE 100% MEALS. HT: 59 WT: 310 LB (141 KG) ABW: 186 LB (84.66 KG) BMI: 45.78 (OBESE III) GI: WNL, NON-TENDER, LARGE, ROUND BM: NOT NOTED I/O: 240/NOT NOTED SKIN: SKIN BREAKDOWN TO BUTTOCKS AREA LUIS: NOT NOTED DIET ORDER: CCHO 45GM, PUREED ESTIMATED ENERGY NEEDS: (OBESE III, ABW) 3766-6713 KCALS (20-25 KCALS/ KG) 68-85 G PRO (0.8-1.0 G/KG) 7138-8503 ML (25-30 ML/KG) PT PO INTAKE: 100% SNACK PROVIDED. Current Diet Order/ [facility], P[facility]ED Pertinent Medications MAALOX (PRN), ALBUTEROL (PRN), LIPITOR, COREG, COLACE, GLUCAGON (PRN), LANTUS, SYNTHROID, INS-SS, COZAAR, MOM (PRN), THEREGRAN, SENNA, FLEET ENEMA (PRN), VIT B COMLPEX WITH VIT C Pertinent Labs 01/10: NA 131, GLUCOSE 363 POC GLUCOSE (LAST 24 HOURS): 257, 250 Nutritional Hx/Data Height 1.75 m Height (Calculated Centimeters) 175.3 Current Weight (lbs) 140.614 kg Weight (Calculated Kilograms) 140.6 Weight (Calculated Grams) 323903.6 [place] Body Weight 145 % [place] Body Weight 214 Body Mass Index (BMI) 45.8 Weight Status Morbidly Obese GI Symptoms GI Symptoms None Last BM NOT NOTED Skin Integrity/Comment: SKIN BREAKDOWN TO BUTTOCKS AREA LUIS: NOT NOTED Current %PO Good (75-100%) Estimated Nutritional Goals BEE in Kcals: Adj wt of IBW Calories/Kcals/Kg 20-25 Kcals Calculated 1252-8340 Protein: Adj wt of IBW Protein g/k.8-1.0 Protein Calculated 68-85 Fluid: ml 4595-8981 ML (25-30 ML/KG) Nutritional Problem 1. Problem Problem ALTERED NUTRITION RELATED LABS Etiology R/T ENDOCRINE DYSFUNCTION Signs/Symptoms: AEB HX DM AND GLUCOSE 363 Malnutrition Related to Morbid Obesity Malnutrition related to morbid obesity Weight 200% of ideal wt Query Text:(Any 1 Criteria met) Malnutrition related to morbid obesity Yes Intervention/Recommendation Comments 1. CONTINUE WITH [facility] 45GM, PUREED DIET ORDERED. 2. CONTNIUE ANTIHYPERGLYCEMIC MEDICATION FOR GLUCOSE CONTROL PER MD ORDER. Expected Outcomes/Goals Expected Outcomes/Goals 1. PO INTAKE TO MEET 75% OF NUTRITIONAL NEEDS. 2. MONITOR PO INTAKE, WT, NUTRITION RELATED LABS AND SKIN INTEGRITY. 3. F/U LOW RISK IN 7 DAYS, 01/18
[2019-03-03] MEDS: Atorvastatin Calcium 10 MG TAB PO SCH (20:32)
[2019-03-03] MEDS: Insulin Glargine 100 units/ml 10ml Vial SUBQ SCH (20:34)
--- NOTE | 2019-03-03 22:30 | Progress Notes ---
DATE: 03/03/2019 Case was discussed with staff of the patient, reviewed records. The patient continues to be unpredictable, impulsive, needing redirection. Continues to have poor insight, continues to be easily agitated, suspicious. No side effects of the medication, no sedation, no nausea. We are working on placement for this patient and continues to be disoriented, confused and we will continue to work with the patient in group therapy, milieu therapy, and adjust the medication as needed. JOB# [id number]
[2019-03-04] MEDS: Levothyroxine 0.075 Mg Tab PO SCH (06:55)
[2019-03-04] MEDS: INSULIN LISPRO SLIDING SCALE 100 UNITS/ML UNIT SUBQ SCH ×2 (07:01→11:42)
[2019-03-04] MEDS: Vitamin B Complex w/Vitamin C Tab PO SCH (08:41)
[2019-03-04] MEDS: Multivitamin Tab PO SCH (08:41)
[2019-03-04] MEDS: Calcium Carb/Vit D 500 mg/200 U Tab PO SCH (08:42)
[2019-03-04] MEDS: Fluticasone Propionate Nasal 1 SPR SPR NS SCH (08:44)
[2019-03-04] MEDS: Guaifenesin DM 10 ML UDC PO SCH ×2 (08:44→13:15)
[2019-03-04] MEDS: Haldol Oral Sol.(concentrate) 10 mg/5 mL Udc PO SCH (08:44)
[2019-03-04] MEDS: APAP/Oxycodone 5/325mg Tab PO PRN (08:49)
--- NOTE | 2019-03-05 02:12 | Progress Notes ---
DATE: 03/04/2019 SUBJECTIVE: The patient is calm, seems to be at her baseline, irritable at times, still gets upset, but no physical behaviors, no agitation, no SI, no HI, no intent, no plan. Fair sleep, fair appetite. Placement has been confirmed. PLAN: We will discharge today. JOB# [id number]
== END 2019-03-04 14:15 | DRG 885 ==
LOC: ER 14:28 → GERO2 18:11 → GERO 01-16 19:13
PROVIDERS: ADMIT Psychiatry & Neurology Psychiatry; ATTEND Psychiatry & Neurology Psychiatry
DX: F33.3 Major depressive disorder, recurrent, severe with psychotic symptoms (principal); E11.65 Type 2 diabetes mellitus with hyperglycemia; E87.1 Hypo-osmolality and hyponatremia; I10 Essential (primary) hypertension; E03.9 Hypothyroidism, unspecified; E11.40 Type 2 diabetes mellitus with diabetic neuropathy, unspecified; R07.89 Other chest pain; M19.90 Unspecified osteoarthritis, unspecified site; Z88.0 Allergy status to penicillin; Z88.2 Allergy status to sulfonamides; Z88.1 Allergy status to other antibiotic agents; Z91.040 Latex allergy status; Z90.49 Acquired absence of other specified parts of digestive tract; Z91.14 Patient's other noncompliance with medication regimen
CPT/HCPCS: 36415-UA; 71045-TC; 80053-TC; 80061-TC; 81001-TC; 82948-90; 83036-90; 84443-TC; 84484-TC; 85025-TC; 86592-TC; 87086-90; 93005; 94760; 97530; G0410; J1631; J1815; X3401; X3904; Z7610